=== PATIENT | male | born 1935 | race Caucasian/White ===

== ENCOUNTER → 2016-07-28 | Outpatient (CLI) | payer OTHER, MEDICARE, BC | END | disposition home or self-care (01) | LOC: MW.RT 20:44 | DX: R06.83 Snoring (principal); G47.39 Other sleep apnea | CPT/HCPCS: 95810 ==

== ENCOUNTER 2016-09-10 08:53 | Day surgery (SDC) | payer OTHER, MEDICARE, BC ==
[~2016-09-10 08:53] MED LIST: Lactated Ringers 1,000 ML IV SCH; Lidocaine 2% 5 ML SDV ONE; Midazolam 1 MG/ML 2 ML SDV ONE; Propofol 200 MG/20 ML SDV ONE; fentaNYL 100 MCG/2 ML SDV ONE
--- NOTE | 2016-09-10 10:09 | PCM.PREANE ---
Preanesthetic Assessment - Anesthesia/Transfusion/Family Hx Anesthesia History: Prior Anesthesia Without Reaction Other Type of Anesthesia Reaction Comment: Denies any known problem with anesthesia in the past Family History of Anesthesia Reaction: No Transfusion History: No Prior Transfusion(s) Intubation History: Unknown - Review of Systems General: No Symptoms Pulmonary: No Symptoms Cardiovascular: No Symptoms Gastrointestinal: No symptoms Neurological: No Symptoms Other: Reports: None - Physical Assessment O2 Sat by Pulse Oximetry: 94 Respiratory Rate: 18 Vital Signs: Last Vital Signs Temp 36.8 C 09/10/16 09:31 Pulse 70 09/10/16 09:31 Resp 18 09/10/16 09:31 BP 152/75 H 09/10/16 09:31 Pulse Ox 94 L 09/10/16 09:31 Height: 1.88 m Weight: 10.433 kg ASA Class: 3 Mental Status: Alert & Oriented x3 Airway Class: Mallampati = 2 Dentition: Reports: Partial (upper right) Thyro-Mental Finger Breadths: 2 Mouth Opening Finger Breadths: 2 ROM/Head Extension: Limited/Partial Lungs: Clear to auscultation, Normal respiratory effort Cardiovascular: Regular Rate, Regular Rhythm - Allergies Allergies/Adverse Reactions: Allergies Allergy/AdvReac Type Severity Reaction Status Date / Time No Known Allergies Allergy Verified 09/08/16 13:44 - Blood Blood Available: No - Anesthesia Plan Pre-Op Medication Ordered: None - Acknowledgements Anesthesia Type Planned: MAC Pt an Appropriate Candidate for the Planned Anesthesia: Yes Alternatives and Risks of Anesthesia Discussed w Pt/Guardian: Yes Pt/Guardian Understands and Agrees with Anesthesia Plan: Yes PreAnesthesia Questionnaire HEENT History: Reports: Allergic Rhinitis, Hard of Hearing Other HEENT History: has upper removable partial denture and bilateral hearing aides Cardiovascular History: Reports: CAD, High Cholesterol, Hypertension, PVD (h/o right carotid artery stenosis) Respiratory History: Reports: None Gastrointestinal History: Reports: Colon Polyp, Diverticulosis (sigmoid diverticulosis) Genitourinary History: Reports: BPH Musculoskeletal History: Reports: None Neurological History: Reports: None Psychiatric History: Reports: None Endocrine/Metabolic History: Reports: Obesity/BMI 30+ Hematologic History: Reports: None Immunologic History: Reports: None Oncologic (Cancer) History: Reports: None Dermatologic History: Reports: None - Past Surgical History Head Surgeries/Procedures: Reports: None HEENT Surgical History: Reports: None, Cataract Surgery Cardiovascular Surgical History: Reports: Carotid Endarterectomy (right carotid endarterectomy 5-6 years ago), Coronary Artery Bypass (CABG x3 in about ') Respiratory Surgical History: Reports: None GI Surgical History: Reports: Appendectomy, Colonoscopy, Hernia, Abdominal Male Surgical History: Reports: None Endocrine Surgical History: Reports: None Neurological Surgical History: Reports: None Musculoskeletal Surgical History: Reports: Knee Replacement (right knee) Oncologic Surgical History: Reports: None - SUBSTANCE USE Smoking Status *Q: Never Smoker Second Hand Smoke Exposure: No Days Per Week of Alcohol Use: 7 Number of Drinks Per Day: 1 Total Drinks Per Week: 7 Recreational Drug Use History: No - HOME MEDS Home Medications: Home Meds Aspirin [Halfprin] 1 tab PO DAILY 12/27/13 [History] Cetirizine HCl [Allergy Relief] 1 tab PO DAILY 12/27/13 [History] Finasteride [Proscar] 5 mg PO DAILY 12/27/13 [History] Flunisolide [Nasalide Nasal [place]] 2 spray IH BID 12/27/13 [History] Garlic [Garlic Oil] 500 mg PO DAILY 12/27/13 [History] Gluc HCl/Csa/Rowdy Hy/Hyalur Ac [Glucosamine Chondroitin] 1 tab PO DAILY [History] Lisinopril 40 mg PO BID 12/27/13 [History] Lutein 10 mg PO DAILY 12/27/13 [History] Metoprolol Tartrate 0.5 tab PO BID 12/27/13 [History] Simvastatin [Zocor] 80 mg PO BEDTIME 12/27/13 [History] Alfuzosin HCl [Alfuzosin HCl ER] 10 mg PO DAILY 09/08/16 [History] Fish Oil/[place]-3 Fatty Acids [Fish Oil 1,000 MG] 1,000 mg PO DAILY 09/08/16 [ History] Oxybutynin Chloride 5 mg PO TID 09/08/16 [History] Triamterene/Hydrochlorothiazid [Triamterene-HCTZ 75-50 MG] 1 tab PO DAILY [History] - CURRENT (IN HOUSE) MEDS Current Meds: Current Medications Lactated Ringer's (Ringers, Lactated) 1,000 mls @ 125 mls/hr IV ASDIRECTED MARIANNA Last Admin: 09/10/16 09:29 Dose: 125 mls/hr Discontinued Medications Fentanyl (Sublimaze) Confirm Administered Dose 100 mcg .ROUTE .STK-MED ONE Stop: 09/10/16 08:22 Lidocaine (Xylocaine-Mpf 2%) Confirm Administered Dose 5 ml .ROUTE .STK-MED ONE Stop: 09/10/16 08:21 Midazolam HCl (Versed 1 Mg/Ml) Confirm Administered Dose 2 mg .ROUTE .STK-MED ONE Stop: 09/10/16 08:21 Propofol (Diprivan 20 Ml) Confirm Administered Dose 400 mg .ROUTE .STK-MED ONE Stop: 09/10/16 08:21
--- NOTE | 2016-09-10 10:53 | PCM.OPNOTE ---
- General Post-Op/Procedure Note Date of Surgery/Procedure: 09/10/16 Operative Procedure(s): Colonoscopy with cecal biopsy Pre Op Diagnosis: Personal history of colon polyps Post-Op Diagnosis: Sigmoid diverticulosis. Nonspecific inflammatory changes in the cecum. Anesthesia Technique: MAC (ASA III) Primary Surgeon: Kirill Tobar Condition: Good Free Text/Narrative:: Dictation [id number]
[2016-09-10] MEDS ORDERED: Lactated Ringers 1,000 ML IV SCH (11:00)
--- NOTE | 2016-09-10 11:21 | PCM.POSTAN ---
POST ANESTHESIA ASSESSMENT - MENTAL STATUS Mental Status: alert, oriented - RESPIRATORY Respiratory Status: respiratory rate WNL, airway patent, O2 saturation stable - CARDIOVASCULAR CV Status: pulse rate WNL, blood pressure stable - GASTROINTESTINAL GI Status: no symptoms - POST OP HYDRATION Hydration Status: adequate & stable - OBSERVATIONS Free Text/Narrative:: no anesthesia problems
[2016-09-10 13:47] VITALS: BP 151/69
--- NOTE | 2016-09-10 18:03 | OR ---
SURGEON: Kirill Tobar M.D. DATE OF PROCEDURE: 09/10/2016 OPERATION PERFORMED: Colonoscopy with cecal biopsy. ANESTHESIA: MAC. ASA CLASSIFICATION: III. PREOPERATIVE DIAGNOSIS: Personal history of colon polyps. POSTOPERATIVE DIAGNOSES: 1. Sigmoid diverticulosis. 2. Nonspecific cecal inflammatory changes. DESCRIPTION OF PROCEDURE: The patient was taken to the endoscopy room and positioned on the endoscopy table in the left lateral decubitus position. A time-out was called for appropriate identification of the patient and procedure. Monitored anesthesia care was provided. The colonoscope was inserted into the rectum and advanced with minimal difficulty to the cecum, where the colonoscope was retroflexed to visualize the ascending colon from below. The colonoscope was then straightened. Cecum was identified by internal landmarks and external pressure. The cecum does appear to have some mild inflammatory changes. Biopsies of the cecum were obtained. The ascending colon, hepatic flexure, transverse colon, splenic flexure, and descending colon showed no tumors, polyps, diverticula, or angiodysplastic changes. Sigmoid colon demonstrates moderate diverticular change. Again, no stricture, spasm, or bleeding was noted. No polyps were encountered. The colonoscope was then withdrawn to the distal rectum and retroflexed to visualize the anal orifice from above. No tumors, polyps, or acute hemorrhoidal changes were noted. The colonoscope was then straightened, the rectum aspirated, and the colonoscope removed. The patient tolerated the procedure well and was taken to recovery room in stable condition. KOKI FRY /[id number]
== END 2016-09-10 11:55 | disposition home or self-care (01) ==
LOC: MW.SDS 08:53
PROVIDERS: ATTEND Surgery
DX: Z12.11 Encounter for screening for malignant neoplasm of colon (principal); K52.9 Noninfective gastroenteritis and colitis, unspecified; K57.30 Diverticulosis of large intestine without perforation or abscess without bleeding; I25.10 Atherosclerotic heart disease of native coronary artery without angina pectoris; J30.9 Allergic rhinitis, unspecified; Z95.1 Presence of aortocoronary bypass graft; Z86.010 Personal history of colon polyps; Z90.49 Acquired absence of other specified parts of digestive tract; Z98.890 Other specified postprocedural states; Z79.82 Long term (current) use of aspirin; Z79.899 Other long term (current) drug therapy
CPT/HCPCS: 45380; 88305; J2250; J3010; J7120; 00810; J2704

== ENCOUNTER 2017-09-15 12:29 | Inpatient (IN) | payer OTHER, MEDICARE, BC ==
--- NOTE | 2017-09-15 12:39 | EDM.PDOC ---
ED HPI GENERAL MEDICAL PROBLEM - General Chief Complaint: Cardiovascular Problem Stated Complaint: AMB Time Seen by Provider: 09/15/17 12:39 Source of Information: Reports: Patient History Limitations: Reports: No Limitations - History of Present Illness INITIAL COMMENTS - FREE TEXT/NARRATIVE: HISTORY AND PHYSICAL: History of present illness: Patient is an 82-year-old male who is brought to the emergency room by EMS from the [place] [facility]. He was seen at the clinic today for a "check-up". At that point, me mentioned concerns of weight gain (25 pounds over the last 3 weeks), bilateral lower extremity swelling, decreased urinary output, and mild dyspnea. The [place] provider felt that he needed to be evaluated in the emergency room. He denies any fever, chills, chest pain, change in vision, headache, or diaphoresis. Denies any abdominal pain, nausea, vomiting, diarrhea or constipation. Denies dysuria or changes in bowel pattern; but does feel a fullness to the low abdomen. Patient has a past medical history of PVD, hypertension, coronary artery disease , BPH, and diverticulitis. Review of systems: As per history of present illness and below otherwise all systems reviewed and negative. Past medical history: As per history of present illness and as reviewed below otherwise noncontributory. Surgical history: As per history of present illness and as reviewed below otherwise noncontributory. Social history: No reported history of drug or alcohol abuse. Family history: As per history of present illness and as reviewed below otherwise noncontributory. Physical exam: General: Developed and well-nourished 82-year-old male. Alert and oriented. Nontoxic appearing and in no acute distress. HEENT: Atraumatic, normocephalic, pupils equal and reactive bilaterally, negative for conjunctival pallor or scleral icterus, mucous membranes moist, throat clear, neck supple, nontender, trachea midline. No drooling or trismus noted. No meningeal signs Lungs: Clear to auscultation, breath sounds equal bilaterally, chest nontender. Heart: S1S2, regular rate and rhythm without overt murmur Abdomen: Soft, nondistended, obese, nontender. Negative for masses or hepatosplenomegaly. Negative for costovertebral tenderness. Pelvis: Stable nontender. Genitourinary: Deferred. Rectal: Deferred. Skin: Intact, warm, dry. No lesions or rashes noted. Extremities: Atraumatic, negative for cords or calf pain. +2 pitting edema to bilateral lower extremities. Neurovascular unremarkable. Neuro: Awake, alert, oriented. Cranial nerves II through XII unremarkable. Cerebellum unremarkable. Motor and sensory unremarkable throughout. Exam nonfocal. Notes: Patient is alert and orientated. Will perform lab work and chest x-ray. Oxygen as needed at this time. Vital signs are stable otherwise. BNP 670, oxygen unable to above 86% on room air. Patient states he would like to be admitted to "get these 40 pounds of water weight off me". Hospitalist was consult did on his case and is agreeable to admitting him to [facility]. Diagnostics: CBC, CMP, UA, chest x-ray, BNP Therapeutics: Lasix IV Impression: CHF Plan: Admission to Med/Surg Definitive disposition and diagnosis as appropriate pending reevaluation and review of above. Duration: Week(s): Location: Reports: Abdomen - Related Data Allergies Allergy/AdvReac Type Severity Reaction Status Date / Time No Known Allergies Allergy Verified 09/15/17 12:33 Home Meds: Home Meds Cetirizine HCl [Allergy Relief] 10 mg PO DAILY 12/27/13 [History] Finasteride [Proscar] 5 mg PO DAILY 12/27/13 [History] Garlic [Garlic Oil] 500 mg PO DAILY 12/27/13 [History] Gluc HCl/Csa/[place] Hy/Hyalur Ac [Glucosamine Chondroitin] 1 tab PO DAILY [History] Lisinopril 40 mg PO BID 12/27/13 [History] Lutein 10 mg PO DAILY 12/27/13 [History] Metoprolol Tartrate 50 mg PO BID 12/27/13 [History] Simvastatin [Zocor] 80 mg PO BEDTIME 12/27/13 [History] Alfuzosin HCl [Alfuzosin HCl ER] 10 mg PO DAILY 09/08/16 [History] Oxybutynin Chloride 5 mg PO TID 09/08/16 [History] Triamterene/Hydrochlorothiazid [Triamterene-HCTZ 75-50 MG] 1 tab PO DAILY [History] Ammonium Lactate [Amlactin 12% Lotion] 3 gm TP BID PRN 09/15/17 [History] Dexamethasone/Tobramycin [Tobradex Eye Ointment] 1 applic OP BID 09/15/17 [ History] Past Medical History HEENT History: Reports: Allergic Rhinitis, Hard of Hearing Other HEENT History: has upper removable partial denture and bilateral hearing aides Cardiovascular History: Reports: CAD, High Cholesterol, Hypertension, PVD Respiratory History: Reports: None Gastrointestinal History: Reports: Colon Polyp, Diverticulosis Genitourinary History: Reports: BPH Musculoskeletal History: Reports: None Neurological History: Reports: None Psychiatric History: Reports: None Endocrine/Metabolic History: Reports: Obesity/BMI 30+ Hematologic History: Reports: None Immunologic History: Reports: None Oncologic (Cancer) History: Reports: None Dermatologic History: Reports: None - Past Surgical History Head Surgeries/Procedures: Reports: None HEENT Surgical History: Reports: None, Cataract Surgery Cardiovascular Surgical History: Reports: Carotid Endarterectomy, Coronary Artery Bypass Respiratory Surgical History: Reports: None GI Surgical History: Reports: Appendectomy, Colonoscopy, Hernia, Abdominal Male Surgical History: Reports: None Endocrine Surgical History: Reports: None Neurological Surgical History: Reports: None Musculoskeletal Surgical History: Reports: Knee Replacement Oncologic Surgical History: Reports: None ED ROS GENERAL - Review of Systems Review Of Systems: ROS reveals no pertinent complaints other than HPI. ED EXAM, GENERAL - Physical Exam Exam: See Below (See dictation) Course - Vital Signs Last Recorded V/S: Last Vital Signs Temp 97.5 F 09/15/17 15:41 Pulse 117 H 09/15/17 20:17 Resp 20 09/15/17 15:41 BP 139/90 09/15/17 20:17 Pulse Ox 94 L 09/15/17 15:41 - Orders/Labs/Meds Orders: Active Orders 24 hr Category Date Time Status Cardiac Monitoring [RC] . DIRECTED Care 09/15/17 12:35 Active EKG Documentation Completion [RC] STAT Care 09/15/17 12:36 Active UA W/MICROSCOPIC [URIN] Stat Lab 09/15/17 14:20 Ordered Medication Orders Acetaminophen (Tylenol) 650 mg PO Q4H PRN PRN Reason: Pain (mild 1-3) Aspirin (Aspirin) 81 mg PO DAILY MARIANNA Cetirizine HCl (Zyrtec) 10 mg PO DAILY [facility] Enoxaparin Sodium (Lovenox) 150 mg SUBCUT Q12H MARIANNA Finasteride (Proscar) 5 mg PO DAILY [facility] Furosemide (Lasix) 40 mg IVPUSH BIDDIURETIC [facility] Heparin Sodium (Porcine) (Heparin Sodium) 5,000 units SUBCUT Q12H [facility] Last Admin: 09/15/17 18:47 Dose: 5,000 units Lisinopril (Prinivil) 40 mg PO BID [facility] Last Admin: 09/15/17 20:16 Dose: 40 mg Metoprolol Tartrate (Lopressor) 50 mg PO BID [facility] Last Admin: 09/15/17 20:17 Dose: 50 mg Non-Formulary Medication (Alfuzosin Hcl) 10 mg PO DAILY [facility] Non-Formulary Medication (Ammonium Lactate) 3 gm TP BID PRN PRN Reason: dry skin Non-Formulary Medication (Garlic [Garlic Oil]) 500 mg PO DAILY [facility] Non-Formulary Medication (Gluc Hcl/Csa/[place] Hy/Hyalur Ac [Glucosamine Chondroitin]) 1 tab PO DAILY [facility] Ondansetron HCl (Zofran Odt) 4 mg PO Q4H PRN PRN Reason: nausea, able to take PO Oxybutynin Chloride (Oxybutynin) 5 mg PO TID [facility] Lutein [Lutein] 10 (Mg) 1 each PO DAILY [facility] Simvastatin (Zocor) 80 mg PO BEDTIME [facility] Last Admin: 09/15/17 20:18 Dose: 80 mg Sodium Chloride (Saline Flush) 2.5 ml FLUSH ASDIRECTED PRN PRN Reason: Keep Vein Open Triamterene/HCTZ (Maxzide 50-75 Mg) 1 each PO DAILY [facility] Warfarin Sodium (Coumadin) 5 mg PO .Pharmacy To Dose [facility] Labs: Laboratory Tests 09/15/17 09/15/17 09/15/17 Range/Units 12:30 12:30 12:30 WBC 4.48 (4.0-11.0) K/uL RBC 4.22 L (4.50-5.90) M/uL Hgb 12.2 L (13.0-17.0) g/dL Hct 38.8 (38.0-50.0) % MCV 91.9 (80.0-98.0) fL MCH 28.9 (27.0-32.0) pg MCHC 31.4 (31.0-37.0) g/dL RDW Std Deviation 49.5 (28.0-62.0) fl RDW Coeff of [place] 15 (11.0-15.0) % Plt Count 162 (150-400) K/uL MPV 9.60 (7.40-12.00) fL Neut % (Auto) 73.2 (48.0-80.0) % Lymph % (Auto) 18.3 (16.0-40.0) % [place] % (Auto) 6.5 (0.0-15.0) % Eos % (Auto) 1.6 (0.0-7.0) % Baso % (Auto) 0.4 (0.0-1.5) % Neut # (Auto) 3.3 (1.4-5.7) K/uL Lymph # (Auto) 0.8 (0.6-2.4) K/uL [place] # (Auto) 0.3 (0.0-0.8) K/uL Eos # (Auto) 0.1 (0.0-0.7) K/uL Baso # (Auto) 0.0 (0.0-0.1) K/uL Nucleated RBC % 0.0 /100WBC Nucleated RBCs # 0 K/uL INR 1.17 Sodium 146 (136-148) mmol/L Potassium 4.1 (3.5-5.1) mmol/L Chloride 109 H (98-107) mmol/L Carbon Dioxide 31.8 (21.0-32.0) mmol/L BUN 26 H (7.0-18.0) mg/dL Creatinine 1.3 (0.8-1.3) mg/dL Est Cr Clr Drug Dosing 42.37 mL/min Estimated GFR (MDRD) 53.1 ml/min Glucose 121 H (74-106) mg/dL Calcium 9.0 (8.5-10.1) mg/dL Total Bilirubin 0.6 (0.2-1.0) mg/dL AST 21 (15-37) IU/L ALT 35 (14-63) IU/L Alkaline Phosphatase 49 (46-116) U/L Troponin I < 0.050 (0.000-0.056) ng/mL B-Natriuretic Peptide (<100) PG/ML Total Protein 6.9 (6.4-8.2) g/dL Albumin 3.5 (3.4-5.0) g/dL Globulin 3.4 (2.0-3.5) g/dL Albumin/Globulin Ratio 1.0 L (1.3-2.8) Amylase 32 (25-115) U/L Lipase 109 (73-393) U/L Urine Color Urine Appearance Urine pH (5.0-8.0) Ur Specific [place] (1.001-1.035) Urine Protein (NEGATIVE) mg/dL Urine Glucose (UA) (NEGATIVE) mg/dL Urine Ketones (NEGATIVE) mg/dL Urine Occult Blood (NEGATIVE) Urine Nitrite (NEGATIVE) Urine Bilirubin (NEGATIVE) Urine Urobilinogen (<2.0) EU/dL Ur Leukocyte Esterase (NEGATIVE) Urine RBC (0-2/HPF) Urine WBC (0-5/HPF) Ur Epithelial Cells (NONE-FEW) Amorphous Sediment (NEGATIVE) Urine Bacteria (NEGATIVE) 09/15/17 09/15/17 Range/Units 12:30 14:20 WBC (4.0-11.0) K/uL RBC (4.50-5.90) M/uL Hgb (13.0-17.0) g/dL Hct (38.0-50.0) % MCV (80.0-98.0) fL MCH (27.0-32.0) pg MCHC (31.0-37.0) g/dL RDW Std Deviation (28.0-62.0) fl RDW Coeff of [place] (11.0-15.0) % Plt Count (150-400) K/uL MPV (7.40-12.00) fL Neut % (Auto) (48.0-80.0) % Lymph % (Auto) (16.0-40.0) % [place] % (Auto) (0.0-15.0) % Eos % (Auto) (0.0-7.0) % Baso % (Auto) (0.0-1.5) % Neut # (Auto) (1.4-5.7) K/uL Lymph # (Auto) (0.6-2.4) K/uL [place] # (Auto) (0.0-0.8) K/uL Eos # (Auto) (0.0-0.7) K/uL Baso # (Auto) (0.0-0.1) K/uL Nucleated RBC % /100WBC Nucleated RBCs # K/uL INR Sodium (136-148) mmol/L Potassium (3.5-5.1) mmol/L Chloride (98-107) mmol/L Carbon Dioxide (21.0-32.0) mmol/L BUN (7.0-18.0) mg/dL Creatinine (0.8-1.3) mg/dL Est Cr Clr Drug Dosing mL/min Estimated GFR (MDRD) ml/min Glucose (74-106) mg/dL Calcium (8.5-10.1) mg/dL Total Bilirubin (0.2-1.0) mg/dL AST (15-37) IU/L ALT (14-63) IU/L Alkaline Phosphatase (46-116) U/L Troponin I (0.000-0.056) ng/mL B-Natriuretic Peptide 670 H (<100) PG/ML Total Protein (6.4-8.2) g/dL Albumin (3.4-5.0) g/dL Globulin (2.0-3.5) g/dL Albumin/Globulin Ratio (1.3-2.8) Amylase (25-115) U/L Lipase (73-393) U/L Urine Color YELLOW Urine Appearance CLEAR Urine pH 5.5 (5.0-8.0) Ur Specific [place] 1.025 (1.001-1.035) Urine Protein NEGATIVE (NEGATIVE) mg/dL Urine Glucose (UA) NEGATIVE (NEGATIVE) mg/dL Urine Ketones NEGATIVE (NEGATIVE) mg/dL Urine Occult Blood TRACE-INTACT (NEGATIVE) Urine Nitrite NEGATIVE (NEGATIVE) Urine Bilirubin NEGATIVE (NEGATIVE) Urine Urobilinogen 0.2 (<2.0) EU/dL Ur Leukocyte Esterase NEGATIVE (NEGATIVE) Urine RBC 0-1 (0-2/HPF) Urine WBC 0-1 (0-5/HPF) Ur Epithelial Cells RARE (NONE-FEW) Amorphous Sediment FEW (NEGATIVE) Urine Bacteria RARE (NEGATIVE) Meds: Medications Generic Name Dose Route Start Last Admin Trade Name Freq PRN Reason Stop Dose Admin Acetaminophen 650 mg 09/15/17 15:31 Tylenol PO Q4H PRN Pain (mild 1-3) Aspirin 81 mg 09/16/17 09:00 Aspirin PO DAILY MARIANNA Cetirizine HCl 10 mg 09/16/17 09:00 Zyrtec PO DAILY [facility] Enoxaparin Sodium 150 mg 09/15/17 20:00 Lovenox SUBCUT Q12H [facility] Finasteride 5 mg 09/16/17 09:00 Proscar PO DAILY [facility] Furosemide 40 mg 09/16/17 08:00 Lasix IVPUSH BIDDIURETIC [facility] Heparin Sodium (Porcine) 5,000 units 09/15/17 15:45 09/15/17 18:47 Heparin Sodium SUBCUT 5,000 units Q12H [facility] Administration Lisinopril 40 mg 09/15/17 21:00 09/15/17 20:16 Prinivil PO 40 mg BID [facility] Administration Metoprolol Tartrate 50 mg 09/15/17 21:00 09/15/17 20:17 Lopressor PO 50 mg BID [facility] Administration Non-Formulary Medication 10 mg 09/16/17 09:00 Alfuzosin Hcl PO DAILY [facility] Non-Formulary Medication 3 gm 09/15/17 19:56 Ammonium Lactate TP BID PRN dry skin Non-Formulary Medication 500 mg 09/16/17 09:00 Garlic [Garlic Oil] PO DAILY [facility] Non-Formulary Medication 1 tab 09/16/17 09:00 Gluc Hcl/Csa/[place] Hy/Hyalur Ac [Glucosamine Chondroitin] PO DAILY [facility] Ondansetron HCl 4 mg 09/15/17 15:31 Zofran Odt PO Q4H PRN nausea, able to take PO Oxybutynin Chloride 5 mg 09/15/17 22:00 Oxybutynin PO TID [facility] Lutein [Lutein] 10 1 each 09/16/17 09:00 Mg PO DAILY [facility] Simvastatin 80 mg 09/15/17 21:00 09/15/17 20:18 Zocor PO 80 mg BEDTIME [facility] Administration Sodium Chloride 2.5 ml 09/15/17 15:31 Saline Flush FLUSH ASDIRECTED PRN Keep Vein Open Triamterene/HCTZ 1 each 09/16/17 09:00 Maxzide 50-75 Mg PO DAILY [facility] Warfarin Sodium 5 mg 09/15/17 20:00 Coumadin PO .Pharmacy To Dose MARIANNA Discontinued Medications Generic Name Dose Route Start Last Admin Trade Name Freq PRN Reason Stop Dose Admin Diltiazem HCl 20 mg 09/15/17 19:55 09/15/17 20:18 Diltiazem IVPUSH 09/15/17 19:56 20 mg ONETIME ONE Administration Furosemide 20 mg 09/15/17 13:38 09/15/17 14:35 Lasix IVPUSH 09/15/17 13:39 Not Given ONETIME ONE Furosemide 20 mg 09/15/17 14:30 09/15/17 14:35 Lasix IVPUSH 09/15/17 14:31 20 mg ONETIME ONE Administration Furosemide 40 mg 09/15/17 19:00 09/15/17 18:47 Lasix IVPUSH 09/15/17 19:01 40 mg NOW ONE Administration Tobramycin/Dexamethasone 3.5 gm 09/15/17 21:00 Tobradex Ophth Oint EYEBOTH BID MARIANNA Warfarin Sodium 5 mg 09/15/17 20:15 09/15/17 20:39 Coumadin PO 09/15/17 20:16 5 mg ONETIME ONE Administration Departure - Departure Time of Disposition: 15:00 Disposition: Admitted As Inpatient 68 Clinical Impression: CHF (congestive heart failure) Qualifiers: Heart failure type: unspecified Heart failure chronicity: unspecified Qualified Code(s): I50.9 - Heart failure, unspecified
[2017-09-15 13:23] LABS: CHLORIDE,CL 109 mmol/L (98-107); SODIUM,NA 146 mmol/L (136-148)
[2017-09-15] MEDS ORDERED: Furosemide 20 MG/2 ML VIAL IVPUSH ONE (13:38)
[2017-09-15] MEDS ORDERED: Furosemide 40 MG/4 ML VIAL IVPUSH ONE ×2 (14:30→19:00)
--- NOTE | 2017-09-15 14:32 | CR ---
EXAMINATION: PA chest HISTORY: Weight gain, cardiac history. FINDINGS: The trachea is midline. Mild cardiomegaly with dextro positioning of the heart. Median sternotomy wir es are noted. No pulmonary infiltrates, effusions or pneumothorax. Interstitial prominence. Osseous structures appear unremarkable. IMPRESSION: 1. Mild cardiomegaly without a definite acute cardiopulmonary pulmonary finding. 2. Bibasilar atelectasis/scarring with mild interstitial prominence bilaterally.
[2017-09-15] MEDS ORDERED: Acetaminophen 325 MG Tab PO PRN (15:31)
[2017-09-15] MEDS ORDERED: Sodium Chloride 0.9% 2.5 ML Syringe FLUSH PRN (15:31)
[2017-09-15] MEDS ORDERED: Ondansetron 4 MG Tab.DIS PO PRN (15:31)
[2017-09-15] MEDS ORDERED: Heparin Sodium 5,000 Units/ML Vial SUBCUT SCH (15:45)
--- NOTE | 2017-09-15 15:47 | PCM.HP ---
H&P History of Present Illness - General Date of Service: 09/15/17 Admit Problem/Dx: Admission Diagnosis/Problem Admission Diagnosis/Problem Congestive heart failure Source of Information: Patient, Old Records ([place]) History Limitations: Reports: No Limitations - History of Present Illness Initial Comments - Free Text/Narative: This 82 year old male with pmh of HTN, CAD, PVD, R CEA, WAQAR on CPAP, BPH, and obesity presented to the ED after being seen on the [facility] due to weight gain and dyspnea. He was then sent to be evaluated in the ED. He reports he has gained 45 lbs over the last. He continues to exercise, but is becoming more and more short of breath at the [facility] and he has noticed his legs are getting bigger and bigger with fluid. He reports being complaint with medications. He reports he changed his diet 1 month ago to the Atkins diet and is eating gray every morning and ham with his salad at lunchtime along with adding a "couple shakes of salt" to each meal. He reports he has never been told he has heart failure, has not seen a supervising architect since CABG in 2006 in [place]. He follows with the [place] and was seen in [place] in 2011 for R CEA. He denies chest pain or palpitations. He reports increasing swelling to legs and some abdominal fullness , not pain though. He reports some trouble sleeping, denies orthopnea, but also reports he is waking up more in the night and feels CPAP isn't working well. Says he is able to lie flat. Does not sleep in recliner. He denies fevers, chills, or recent URI. He reports two small wounds to his R leg (lateral and medial), but they are improving and are providing him with no pain. He reports they are slowly improving since he injured them in the winter shoveling. He denies tobacco use, rare alcohol use and no recreational drug use. In the ED no leukocytosis noted, Hgb 12.2, Na 146, K+ 4.1, Cl 109, BUN 26, Cr 1.3 glucose 121, BNP 670. BP 148/90s, Hypoxia noted, 86% on RA upon arrival. He was given Lasix 40 mg IV and voided x1 without measure in the ED. CXR revealed Mild cardiomegaly, without a definite acute cardiopulmonary finding, bibasilar atelectasis/scarring with milkd interstitial prominence bilaterally. He was admitted for suspected CHF exacerbation with hypoxia and dyspnea. At [place] on September 13 he had lipid profile and A1c monitored. A1c 6.1 and Lipid panel revealed Triglycerides 69, Cholesterol 74, HCL 42, LDL 18. PCP [facility] - Related Data Allergies/Adverse Reactions: Allergies Allergy/AdvReac Type Severity Reaction Status Date / Time No Known Allergies Allergy Verified 09/15/17 12:33 Home Medications: Home Meds Cetirizine HCl [Allergy Relief] 10 mg PO DAILY 12/27/13 [History] Finasteride [Proscar] 5 mg PO DAILY 12/27/13 [History] Garlic [Garlic Oil] 500 mg PO DAILY 12/27/13 [History] Gluc HCl/Csa/Rowdy Hy/Hyalur Ac [Glucosamine Chondroitin] 1 tab PO DAILY [History] Lisinopril 40 mg PO BID 12/27/13 [History] Lutein 10 mg PO DAILY 12/27/13 [History] Metoprolol Tartrate 50 mg PO BID 12/27/13 [History] Simvastatin [Zocor] 80 mg PO BEDTIME 12/27/13 [History] Alfuzosin HCl [Alfuzosin HCl ER] 10 mg PO DAILY 09/08/16 [History] Oxybutynin Chloride 5 mg PO TID 09/08/16 [History] Triamterene/Hydrochlorothiazid [Triamterene-HCTZ 75-50 MG] 1 tab PO DAILY [History] Ammonium Lactate [Amlactin 12% Lotion] 3 gm TP BID PRN 09/15/17 [History] Dexamethasone/Tobramycin [Tobradex Eye Ointment] 1 applic OP BID 09/15/17 [ History] Past Medical History HEENT History: Reports: Allergic Rhinitis, Hard of Hearing Other HEENT History: has upper removable partial denture and bilateral hearing aides Cardiovascular History: Reports: Bypass (2006 x 3), CAD, High Cholesterol, Hypertension, PVD, SOB on Exertion. Denies: Afib, Arrhythmia, Blood Clots/VTE/ DVT Respiratory History: Reports: Sleep Apnea (CPAP at home). Denies: COPD, PE Gastrointestinal History: Reports: Colon Polyp, Diverticulosis Genitourinary History: Reports: BPH Musculoskeletal History: Reports: None Neurological History: Reports: None. Denies: CVA, TIA Psychiatric History: Reports: None Endocrine/Metabolic History: Reports: Obesity/BMI 30+. Denies: Diabetes, Type II Hematologic History: Reports: None Immunologic History: Reports: None Oncologic (Cancer) History: Reports: None Dermatologic History: Reports: None - Infectious Disease History Infectious Disease History: Reports: None - Past Surgical History Head Surgeries/Procedures: Reports: None HEENT Surgical History: Reports: None, Cataract Surgery Cardiovascular Surgical History: Reports: Carotid Endarterectomy (2011), Coronary Artery Bypass (2006) Respiratory Surgical History: Reports: None GI Surgical History: Reports: Appendectomy, Colonoscopy, Hernia, Abdominal Male Surgical History: Reports: None Endocrine Surgical History: Reports: None Neurological Surgical History: Reports: None Musculoskeletal Surgical History: Reports: Knee Replacement (Right) Oncologic Surgical History: Reports: None Social & Family History - Family History Family Medical History: Noncontributory - Tobacco Use Smoking Status *Q: Never Smoker - Caffeine Use Caffeine Use: Reports: Coffee - Alcohol Use Alcohol Use History: No - Recreational Drug Use Recreational Drug Use: No - Living Situation & Occupation Living situation: Reports: Single Occupation: Retired H&P Review of Systems - Review of Systems: Review Of Systems: See Below General: Reports: No Symptoms. Denies: Fever, Chills, Malaise, Weakness HEENT: Reports: No Symptoms. Denies: Sinus Congestion, Sore Throat, Visual Changes Pulmonary: Reports: Shortness of Breath. Denies: Cough, Sputum Cardiovascular: Reports: Dyspnea on Exertion, Orthopnea, Edema. Denies: Chest Pain, Palpitations Gastrointestinal: Reports: Flatus, Other (fullness in abdomen). Denies: Abdominal Pain, Black Stool, Bloody Stool, Nausea, Vomiting Genitourinary: Reports: No Symptoms Musculoskeletal: Reports: No Symptoms Skin: Reports: Wound (R leg x 2, improving injured leg while shoveling this fall ) Psychiatric: Reports: No Symptoms Neurological: Reports: No Symptoms Hematologic/Lymphatic: Reports: No Symptoms Immunologic: Reports: No Symptoms Exam - Exam Exam: See Below - Vital Signs Vital Signs: Last Vital Signs Temp 97.6 F 09/15/17 12:30 Pulse 79 09/15/17 14:45 Resp 18 09/15/17 14:45 BP 164/93 H 09/15/17 14:45 Pulse Ox 99 09/15/17 14:45 Weight: 148.325 kg - Exam Quality Assessment: DVT Prophylaxis General: Alert, Oriented, Cooperative HEENT: Conjunctiva Clear, Mucosa Moist & [place], Posterior Pharynx Clear Neck: Supple, Trachea Midline, Full Range of Motion, JVD Lungs: Crackles (bibasilar) Cardiovascular: Regular Rate, Regular Rhythm, Normal S1, Normal S2 GI/Abdominal Exam: Normal Bowel Sounds, Soft, Non-Tender, No Organomegaly, No Distention, No Abnormal Bruit, No Mass, Pelvis Stable Back Exam: Normal Inspection, Full Range of Motion Extremities: Normal Range of Motion, Non-Tender, Pedal Edema (+3-4 pitting edema to L Leg with chronic skin changes from PVD. +2 pitting to R leg. Both extending up to hips. No abdominal edema noted. ) Skin: Wound (L lateral and medial leg. x2 wounds, no erythema or drainage. both approximate 1in x 0.5 in in size. No fluctuance or pain with palpation. Injured shoveling this winter. they are improving. Covering and using bacitracin on them daily.), Other (chronic PVD skin changes to bilateral lower legs. ). No: Ecchymosis Neurological: Cranial Nerves Intact Neuro Extensive - Mental Status: Alert, Oriented x3, Normal Mood/Affect, Normal Cognition Neuro Extensive - Motor, Sensory, Reflexes: CN II-XII Intact, Normal Gait, Normal Reflexes Psychiatric: Alert, Normal Affect, Normal Mood - Patient Data Lab Results Last 24 hrs: Laboratory Results - last 24 hr 09/15/17 09/15/17 09/15/17 Range/Units 12:30 12:30 12:30 WBC 4.48 (4.0-11.0) K/uL RBC 4.22 L (4.50-5.90) M/uL Hgb 12.2 L (13.0-17.0) g/dL Hct 38.8 (38.0-50.0) % MCV 91.9 (80.0-98.0) fL MCH 28.9 (27.0-32.0) pg MCHC 31.4 (31.0-37.0) g/dL RDW Std Deviation 49.5 (28.0-62.0) fl RDW Coeff of [place] 15 (11.0-15.0) % Plt Count 162 (150-400) K/uL MPV 9.60 (7.40-12.00) fL Neut % (Auto) 73.2 (48.0-80.0) % Lymph % (Auto) 18.3 (16.0-40.0) % [place] % (Auto) 6.5 (0.0-15.0) % Eos % (Auto) 1.6 (0.0-7.0) % Baso % (Auto) 0.4 (0.0-1.5) % Neut # (Auto) 3.3 (1.4-5.7) K/uL Lymph # (Auto) 0.8 (0.6-2.4) K/uL [place] # (Auto) 0.3 (0.0-0.8) K/uL Eos # (Auto) 0.1 (0.0-0.7) K/uL Baso # (Auto) 0.0 (0.0-0.1) K/uL Nucleated RBC % 0.0 /100WBC Nucleated RBCs # 0 K/uL INR 1.17 Sodium 146 (136-148) mmol/L Potassium 4.1 (3.5-5.1) mmol/L Chloride 109 H (98-107) mmol/L Carbon Dioxide 31.8 (21.0-32.0) mmol/L BUN 26 H (7.0-18.0) mg/dL Creatinine 1.3 (0.8-1.3) mg/dL Est Cr Clr Drug Dosing 42.37 mL/min Estimated GFR (MDRD) 53.1 ml/min Glucose 121 H (74-106) mg/dL Calcium 9.0 (8.5-10.1) mg/dL Total Bilirubin 0.6 (0.2-1.0) mg/dL AST 21 (15-37) IU/L ALT 35 (14-63) IU/L Alkaline Phosphatase 49 (46-116) U/L Troponin I < 0.050 (0.000-0.056) ng/mL B-Natriuretic Peptide (<100) PG/ML Total Protein 6.9 (6.4-8.2) g/dL Albumin 3.5 (3.4-5.0) g/dL Globulin 3.4 (2.0-3.5) g/dL Albumin/Globulin Ratio 1.0 L (1.3-2.8) Amylase 32 (25-115) U/L Lipase 109 (73-393) U/L Urine Color Urine Appearance Urine pH (5.0-8.0) Ur Specific [place] (1.001-1.035) Urine Protein (NEGATIVE) mg/dL Urine Glucose (UA) (NEGATIVE) mg/dL Urine Ketones (NEGATIVE) mg/dL Urine Occult Blood (NEGATIVE) Urine Nitrite (NEGATIVE) Urine Bilirubin (NEGATIVE) Urine Urobilinogen (<2.0) EU/dL Ur Leukocyte Esterase (NEGATIVE) Urine RBC (0-2/HPF) Urine WBC (0-5/HPF) Ur Epithelial Cells (NONE-FEW) Amorphous Sediment (NEGATIVE) Urine Bacteria (NEGATIVE) 09/15/17 09/15/17 Range/Units 12:30 14:20 WBC (4.0-11.0) K/uL RBC (4.50-5.90) M/uL Hgb (13.0-17.0) g/dL Hct (38.0-50.0) % MCV (80.0-98.0) fL MCH (27.0-32.0) pg MCHC (31.0-37.0) g/dL RDW Std Deviation (28.0-62.0) fl RDW Coeff of [place] (11.0-15.0) % Plt Count (150-400) K/uL MPV (7.40-12.00) fL Neut % (Auto) (48.0-80.0) % Lymph % (Auto) (16.0-40.0) % [place] % (Auto) (0.0-15.0) % Eos % (Auto) (0.0-7.0) % Baso % (Auto) (0.0-1.5) % Neut # (Auto) (1.4-5.7) K/uL Lymph # (Auto) (0.6-2.4) K/uL [place] # (Auto) (0.0-0.8) K/uL Eos # (Auto) (0.0-0.7) K/uL Baso # (Auto) (0.0-0.1) K/uL Nucleated RBC % /100WBC Nucleated RBCs # K/uL INR Sodium (136-148) mmol/L Potassium (3.5-5.1) mmol/L Chloride (98-107) mmol/L Carbon Dioxide (21.0-32.0) mmol/L BUN (7.0-18.0) mg/dL Creatinine (0.8-1.3) mg/dL Est Cr Clr Drug Dosing mL/min Estimated GFR (MDRD) ml/min Glucose (74-106) mg/dL Calcium (8.5-10.1) mg/dL Total Bilirubin (0.2-1.0) mg/dL AST (15-37) IU/L ALT (14-63) IU/L Alkaline Phosphatase (46-116) U/L Troponin I (0.000-0.056) ng/mL B-Natriuretic Peptide 670 H (<100) PG/ML Total Protein (6.4-8.2) g/dL Albumin (3.4-5.0) g/dL Globulin (2.0-3.5) g/dL Albumin/Globulin Ratio (1.3-2.8) Amylase (25-115) U/L Lipase (73-393) U/L Urine Color YELLOW Urine Appearance CLEAR Urine pH 5.5 (5.0-8.0) Ur Specific [place] 1.025 (1.001-1.035) Urine Protein NEGATIVE (NEGATIVE) mg/dL Urine Glucose (UA) NEGATIVE (NEGATIVE) mg/dL Urine Ketones NEGATIVE (NEGATIVE) mg/dL Urine Occult Blood TRACE-INTACT (NEGATIVE) Urine Nitrite NEGATIVE (NEGATIVE) Urine Bilirubin NEGATIVE (NEGATIVE) Urine Urobilinogen 0.2 (<2.0) EU/dL Ur Leukocyte Esterase NEGATIVE (NEGATIVE) Urine RBC 0-1 (0-2/HPF) Urine WBC 0-1 (0-5/HPF) Ur Epithelial Cells RARE (NONE-FEW) Amorphous Sediment FEW (NEGATIVE) Urine Bacteria RARE (NEGATIVE) Result Diagrams: 09/15/17 12:30 09/15/17 12:30 EKG INTERPRETATION EKG Date: 09/15/17 Rhythm: NSR Rate (Beats/Min): 79 P-Wave: Present QRS: Normal ST-T: Normal QT: Normal *Q Meaningful Use (ADM) - VTE Risk Assess *Q Each Risk Factor Represents 1 Point: Obesity ( BMI > 25 kg/m2), Congestive heart failure (CHF) Total Score 1 Point Risk Factors: 2 Each Risk Factor Represents 2 Points: None Total Score 2 Point Risk Factors: 0 Each Risk Factor Represents 3 Points: Age 75 Years or Greater Total Score 3 Point Risk Factors: 3 Each Risk Factor Represents 5 Points: None Total Score 5 Point Risk Factors: 0 Venous Thromboembolism Risk Factor Score *Q: 5 - Problem List (1) CHF (congestive heart failure) SNOMED Code(s): 24515950 ICD Code: I50.9 - HEART FAILURE, UNSPECIFIED Status: Suspected Current Visit: Yes Qualifiers: Heart failure type: unspecified Heart failure chronicity: acute Qualified Code(s): I50.9 - Heart failure, unspecified (2) Hypoxia SNOMED Code(s): 666819297 ICD Code: R09.02 - HYPOXEMIA Status: Acute Current Visit: Yes (3) HTN (hypertension) SNOMED Code(s): 24969984 ICD Code: I10 - ESSENTIAL (PRIMARY) HYPERTENSION Status: Chronic Current Visit: Yes Qualifiers: Hypertension type: essential hypertension Qualified Code(s): I10 - Essential (primary) hypertension (4) CAD (coronary artery disease) SNOMED Code(s): 74124102 ICD Code: I25.10 - ATHSCL HEART DISEASE OF [place] CORONARY ARTERY W/O ANG PCTRS Status: Chronic Current Visit: Yes Qualifiers: Coronary Disease-Associated Artery/Lesion type: [place] artery [place] vs. transplanted heart: [place] heart Associated angina: without angina Qualified Code(s): I25.10 - Atherosclerotic heart disease of [place] coronary artery without angina pectoris (5) PVD (peripheral vascular disease) SNOMED Code(s): 370871933 ICD Code: I73.9 - PERIPHERAL VASCULAR DISEASE, UNSPECIFIED Status: Chronic Current Visit: Yes (6) Carotid stenosis Status: Chronic Current Visit: Yes Qualifiers: Laterality: right Qualified Code(s): I65.21 - Occlusion and stenosis of right carotid artery (7) History of CEA (carotid endarterectomy) SNOMED Code(s): 627850566, 181904026 ICD Code: Z98.890 - OTHER SPECIFIED POSTPROCEDURAL STATES Status: Chronic Current Visit: Yes (8) BPH (benign prostatic hyperplasia) SNOMED Code(s): 976137816 ICD Code: N40.0 - BENIGN PROSTATIC HYPERPLASIA WITHOUT LOWER URINRY TRACT SYMP Status: Chronic Current Visit: Yes Qualifiers: Lower urinary tract symptom detail: unspecified (9) WAQAR on CPAP SNOMED Code(s): 60814184 ICD Code: G47.33 - OBSTRUCTIVE SLEEP APNEA (ADULT) (PEDIATRIC); Z99.89 - DEPENDENCE ON OTHER ENABLING MACHINES AND DEVICES Status: Chronic Current Visit: Yes (10) Hx of total knee arthroplasty SNOMED Code(s): 2986789438363, 1298574688131 ICD Code: Z96.659 - PRESENCE OF UNSPECIFIED ARTIFICIAL KNEE JOINT Status: Chronic Current Visit: Yes Qualifiers: Laterality: left Qualified Code(s): Z96.652 - Presence of left artificial knee joint (11) Obesity SNOMED Code(s): 798040996, 290294149 ICD Code: E66.9 - OBESITY, UNSPECIFIED Status: Chronic Current Visit: Yes (12) Hx of CABG SNOMED Code(s): 767946083, 036251313 ICD Code: Z95.1 - PRESENCE OF AORTOCORONARY BYPASS GRAFT Status: Chronic Current Visit: Yes Problem List Initiated/Reviewed/Updated: Yes Orders Last 24hrs: Active Orders 24 hr Category Date Time Status Admission Status [Patient Status] [ADT] Stat ADT 09/15/17 14:37 Active Cardiac Monitoring [RC] . DIRECTED Care 09/15/17 12:35 Active EKG Documentation Completion [RC] STAT Care 09/15/17 12:36 Active Height and Weight [RC] DAILY Care 09/15/17 15:20 Active Intake and Output Strict [RC] ASDIRECTED Care 09/15/17 15:41 Active Oxygen Therapy [RC] PRN Care 09/15/17 15:20 Active Telemetry Monitoring [Cardiac Monitoring] [RC] . Care 09/15/17 14:43 Active DIRECTED Up ad [place]acle [RC] ASDIRECTED Care 09/15/17 15:20 Active VTE/DVT Education [RC] PER UNIT ROUTINE Care 09/15/17 15:20 Active Vital Signs [RC] Q4H Care 09/15/17 15:20 Active 2 Gram Sodium Diet [DIET] Diet 09/15/17 Dinner Active Echo 2D wo Cont [US] Urgent Exams 09/15/17 15:45 Ordered BASIC METABOLIC PANEL,BMP [CHEM] AM Lab 09/16/17 05:11 Ordered BASIC METABOLIC PANEL,BMP [CHEM] AM Lab 09/17/17 05:11 Ordered BASIC METABOLIC PANEL,BMP [CHEM] AM Lab 09/18/17 05:11 Ordered CBC WITH AUTO DIFF [HEME] AM Lab 09/16/17 05:11 Ordered CBC WITH AUTO DIFF [HEME] AM Lab 09/17/17 05:11 Ordered CBC WITH AUTO DIFF [HEME] AM Lab 09/18/17 05:11 Ordered UA W/MICROSCOPIC [URIN] Stat Lab 09/15/17 14:20 Ordered Acetaminophen [Tylenol] Med 09/15/17 15:31 Active 650 mg PO Q4H PRN Cetirizine HCl [Allergy Relief] Med 09/16/17 09:00 Ordered 10 mg PO DAILY Dexamethasone/Tobramycin [Tobradex Ophth Oint] Med 09/15/17 21:00 Ordered DOSE gm EYEBOTH BID Finasteride [Proscar] Med 09/16/17 09:00 Ordered 5 mg PO DAILY Furosemide [Lasix] Med 09/16/17 08:00 Active 40 mg IVPUSH BIDDIURETIC Heparin Sodium Med 09/15/17 15:45 Active 5,000 units SUBCUT Q12H Lisinopril [Lisinopril] Med 09/15/17 21:00 Ordered 40 mg PO BID Lutein [Lutein] Med 09/16/17 09:00 Ordered 10 mg PO DAILY Metoprolol Tartrate Med 09/15/17 21:00 Ordered 50 mg PO BID Ondansetron [Zofran ODT] Med 09/15/17 15:31 Active 4 mg PO Q4H PRN Oxybutynin Med 09/15/17 22:00 Ordered 5 mg PO TID Simvastatin [Zocor] Med 09/15/17 21:00 Ordered 80 mg PO BEDTIME Sodium Chloride 0.9% [Saline Flush] Med 09/15/17 15:31 Active 2.5 ml FLUSH ASDIRECTED PRN Saline Lock Insert [OM.PC] Routine Oth 09/15/17 15:31 Ordered Medication Orders Acetaminophen (Tylenol) 650 mg PO Q4H PRN PRN Reason: Pain (mild 1-3) Finasteride (Proscar) 5 mg PO DAILY MARIANNA Furosemide (Lasix) 40 mg IVPUSH BIDDIURETIC MARIANNA Heparin Sodium (Porcine) (Heparin Sodium) 5,000 units SUBCUT Q12H MARIANNA Non-Formulary Medication (Cetirizine Hcl [Allergy Relief]) 10 mg PO DAILY [facility] Non-Formulary Medication (Lisinopril [Lisinopril]) 40 mg PO BID [facility] Non-Formulary Medication (Lutein [Lutein]) 10 mg PO DAILY [facility] Non-Formulary Medication (Metoprolol Tartrate) 50 mg PO BID [facility] Non-Formulary Medication (Simvastatin [Zocor]) 80 mg PO BEDTIME [facility] Ondansetron HCl (Zofran Odt) 4 mg PO Q4H PRN PRN Reason: nausea, able to take PO Oxybutynin Chloride (Oxybutynin) 5 mg PO TID [facility] Sodium Chloride (Saline Flush) 2.5 ml FLUSH ASDIRECTED PRN PRN Reason: Keep Vein Open Tobramycin/Dexamethasone (Tobradex Ophth Oint) gm EYEBOTH BID [facility] Assessment/Plan Comment:: This 82 year old male admitted with suspected CHF exacerbation with hypoxia and dyspnea. 1. CHF exacerbation: Suspected. Will obtain ECHO. Lasix 40 mg IV BID. Daily weights strict I/O. Heart healthy, 2 gm low Na diet with 1.5 L FR. Monitor on telemetry. Dr Robertson to consult. Elevated extremities and place compression stockings. Will obtain records from [place], [place] and [place], all pending arrival. 2. HTN: Elevated: Will monitor with diuresis. Continue Lisinopril 40 mg BID, Metoprolol 50 mg BID. Hold Triamterene/HCTZ while diuresing for now. 3. CAD: Continue ASA and statin. Lipid panel obtained at [place] on September 13. Well controlled. 4. BPH: Stable. Continue Finasteride and Oxybutynin 5. R leg wounds: No cellulitis noted. Will consult PT for suggestions on wound care. VTE prophylaxis: Heparin. Dispo: 2-3 days pending improvement.
[2017-09-15] MEDS ORDERED: Diltiazem 25 MG/5 ML SDV IVPUSH ONE (19:55)
[2017-09-15] MEDS ORDERED: AMMONIUM LACTATE TOP PRN (19:56)
[2017-09-15] MEDS ORDERED: Warfarin 5 MG Tab PO SCH (20:00)
[2017-09-15] MEDS ORDERED: Warfarin 5 MG Tab PO ONE (20:15)
[2017-09-15] MEDS: Lisinopril 10 MG Tab PO SCH (20:16)
[2017-09-15] MEDS: Metoprolol Tartrate 50 MG Tab PO SCH (20:17)
[2017-09-15] MEDS: Simvastatin 40 MG Tab PO SCH (20:18)
[2017-09-15] MEDS ORDERED: Dexamethasone/Tobramycin 0.1-0.3% Ophth Oint 3.5 GM Tube EYEBOTH SCH (21:00)
[2017-09-15] MEDS: Oxybutynin 5 MG Tab PO SCH (21:56)
[2017-09-15] MEDS: Enoxaparin 150 MG/1 ML Syringe SUBCUT SCH (23:09)
[2017-09-16] MEDS: Oxybutynin 5 MG Tab PO SCH ×3 (05:35→21:53)
--- NOTE | 2017-09-16 07:59 | PCM.PN ---
- General Info Date of Service: 09/16/17 Admission Dx/Problem (Free Text): Admission Diagnosis/Problem Admission Diagnosis/Problem Congestive heart failure Subjective Update: Feeling a little better this morning. Shortness of breath has improved some. Still requiring small amount of oxygen. legs continue to have some swelling. Denies chest pain or palpitations. No abdominal pain. Ambulating well within his room. Functional Status: Reports: Pain Controlled, Tolerating Diet, Ambulating, Urinating - Review of Systems General: Reports: No Symptoms. Denies: Fever, Weakness, Fatigue, Malaise HEENT: Reports: No Symptoms. Denies: Headaches, Sore Throat, Visual Changes Pulmonary: Reports: Shortness of Breath (improving) Cardiovascular: Reports: Dyspnea on Exertion, Edema (peripheral). Denies: Chest Pain Gastrointestinal: Reports: No Symptoms. Denies: Abdominal Pain, Nausea, Vomiting Genitourinary: Reports: No Symptoms Musculoskeletal: Reports: No Symptoms Skin: Reports: No Symptoms Neurological: Reports: No Symptoms Psychiatric: Reports: Suicidal Ideation - Patient Data Vitals - Most Recent: Last Vital Signs Temp 98.2 F 09/16/17 03:00 Pulse 76 09/16/17 03:00 Resp 20 09/16/17 03:00 BP 137/63 09/16/17 03:00 Pulse Ox 88 L 09/16/17 03:00 Weight - Most Recent: 148.325 kg I&O - Last 24 Hours: Intake & Output 09/15/17 09/16/17 09/16/17 22:59 06:59 14:59 Intake Total 0 400 Output Total 700 2430 Balance -700 -2029 Lab Results Last 24 Hours: Laboratory Results - last 24 hr 09/15/17 09/15/17 09/15/17 Range/Units 12:30 12:30 12:30 WBC 4.48 (4.0-11.0) K/uL RBC 4.22 L (4.50-5.90) M/uL Hgb 12.2 L (13.0-17.0) g/dL Hct 38.8 (38.0-50.0) % MCV 91.9 (80.0-98.0) fL MCH 28.9 (27.0-32.0) pg MCHC 31.4 (31.0-37.0) g/dL RDW Std Deviation 49.5 (28.0-62.0) fl RDW Coeff of [place] 15 (11.0-15.0) % Plt Count 162 (150-400) K/uL MPV 9.60 (7.40-12.00) fL Neut % (Auto) 73.2 (48.0-80.0) % Lymph % (Auto) 18.3 (16.0-40.0) % [place] % (Auto) 6.5 (0.0-15.0) % Eos % (Auto) 1.6 (0.0-7.0) % Baso % (Auto) 0.4 (0.0-1.5) % Neut # (Auto) 3.3 (1.4-5.7) K/uL Lymph # (Auto) 0.8 (0.6-2.4) K/uL [place] # (Auto) 0.3 (0.0-0.8) K/uL Eos # (Auto) 0.1 (0.0-0.7) K/uL Baso # (Auto) 0.0 (0.0-0.1) K/uL Nucleated RBC % 0.0 /100WBC Nucleated RBCs # 0 K/uL INR 1.17 Sodium 146 (136-148) mmol/L Potassium 4.1 (3.5-5.1) mmol/L Chloride 109 H (98-107) mmol/L Carbon Dioxide 31.8 (21.0-32.0) mmol/L BUN 26 H (7.0-18.0) mg/dL Creatinine 1.3 (0.8-1.3) mg/dL Est Cr Clr Drug Dosing 42.37 mL/min Estimated GFR (MDRD) 53.1 ml/min Glucose 121 H (74-106) mg/dL Calcium 9.0 (8.5-10.1) mg/dL Magnesium (1.5-2.0) mg/dL Total Bilirubin 0.6 (0.2-1.0) mg/dL AST 21 (15-37) IU/L ALT 35 (14-63) IU/L Alkaline Phosphatase 49 (46-116) U/L Troponin I < 0.050 (0.000-0.056) ng/mL B-Natriuretic Peptide (<100) PG/ML Total Protein 6.9 (6.4-8.2) g/dL Albumin 3.5 (3.4-5.0) g/dL Globulin 3.4 (2.0-3.5) g/dL Albumin/Globulin Ratio 1.0 L (1.3-2.8) Amylase 32 (25-115) U/L Lipase 109 (73-393) U/L Urine Color Urine Appearance Urine pH (5.0-8.0) Ur Specific [place] (1.001-1.035) Urine Protein (NEGATIVE) mg/dL Urine Glucose (UA) (NEGATIVE) mg/dL Urine Ketones (NEGATIVE) mg/dL Urine Occult Blood (NEGATIVE) Urine Nitrite (NEGATIVE) Urine Bilirubin (NEGATIVE) Urine Urobilinogen (<2.0) EU/dL Ur Leukocyte Esterase (NEGATIVE) Urine RBC (0-2/HPF) Urine WBC (0-5/HPF) Ur Epithelial Cells (NONE-FEW) Amorphous Sediment (NEGATIVE) Urine Bacteria (NEGATIVE) 09/15/17 09/15/17 09/15/17 Range/Units 12:30 14:20 20:18 WBC (4.0-11.0) K/uL RBC (4.50-5.90) M/uL Hgb (13.0-17.0) g/dL Hct (38.0-50.0) % MCV (80.0-98.0) fL MCH (27.0-32.0) pg MCHC (31.0-37.0) g/dL RDW Std Deviation (28.0-62.0) fl RDW Coeff of [place] (11.0-15.0) % Plt Count (150-400) K/uL MPV (7.40-12.00) fL Neut % (Auto) (48.0-80.0) % Lymph % (Auto) (16.0-40.0) % [place] % (Auto) (0.0-15.0) % Eos % (Auto) (0.0-7.0) % Baso % (Auto) (0.0-1.5) % Neut # (Auto) (1.4-5.7) K/uL Lymph # (Auto) (0.6-2.4) K/uL [place] # (Auto) (0.0-0.8) K/uL Eos # (Auto) (0.0-0.7) K/uL Baso # (Auto) (0.0-0.1) K/uL Nucleated RBC % /100WBC Nucleated RBCs # K/uL INR 1.17 Sodium (136-148) mmol/L Potassium (3.5-5.1) mmol/L Chloride (98-107) mmol/L Carbon Dioxide (21.0-32.0) mmol/L BUN (7.0-18.0) mg/dL Creatinine (0.8-1.3) mg/dL Est Cr Clr Drug Dosing mL/min Estimated GFR (MDRD) ml/min Glucose (74-106) mg/dL Calcium (8.5-10.1) mg/dL Magnesium (1.5-2.0) mg/dL Total Bilirubin (0.2-1.0) mg/dL AST (15-37) IU/L ALT (14-63) IU/L Alkaline Phosphatase (46-116) U/L Troponin I (0.000-0.056) ng/mL B-Natriuretic Peptide 670 H (<100) PG/ML Total Protein (6.4-8.2) g/dL Albumin (3.4-5.0) g/dL Globulin (2.0-3.5) g/dL Albumin/Globulin Ratio (1.3-2.8) Amylase (25-115) U/L Lipase (73-393) U/L Urine Color YELLOW Urine Appearance CLEAR Urine pH 5.5 (5.0-8.0) Ur Specific [place] 1.025 (1.001-1.035) Urine Protein NEGATIVE (NEGATIVE) mg/dL Urine Glucose (UA) NEGATIVE (NEGATIVE) mg/dL Urine Ketones NEGATIVE (NEGATIVE) mg/dL Urine Occult Blood TRACE-INTACT (NEGATIVE) Urine Nitrite NEGATIVE (NEGATIVE) Urine Bilirubin NEGATIVE (NEGATIVE) Urine Urobilinogen 0.2 (<2.0) EU/dL Ur Leukocyte Esterase NEGATIVE (NEGATIVE) Urine RBC 0-1 (0-2/HPF) Urine WBC 0-1 (0-5/HPF) Ur Epithelial Cells RARE (NONE-FEW) Amorphous Sediment FEW (NEGATIVE) Urine Bacteria RARE (NEGATIVE) 09/15/17 09/16/17 09/16/17 Range/Units 20:18 05:15 05:15 WBC 3.79 L (4.0-11.0) K/uL RBC 4.08 L (4.50-5.90) M/uL Hgb 11.9 L (13.0-17.0) g/dL Hct 37.1 L (38.0-50.0) % MCV 90.9 (80.0-98.0) fL MCH 29.2 (27.0-32.0) pg MCHC 32.1 (31.0-37.0) g/dL RDW Std Deviation 49.2 (28.0-62.0) fl RDW Coeff of [place] 15 (11.0-15.0) % Plt Count 155 (150-400) K/uL MPV 9.80 (7.40-12.00) fL Neut % (Auto) 64.0 (48.0-80.0) % Lymph % (Auto) 25.1 (16.0-40.0) % [place] % (Auto) 8.2 (0.0-15.0) % Eos % (Auto) 2.4 (0.0-7.0) % Baso % (Auto) 0.3 (0.0-1.5) % Neut # (Auto) 2.4 (1.4-5.7) K/uL Lymph # (Auto) 1.0 (0.6-2.4) K/uL [place] # (Auto) 0.3 (0.0-0.8) K/uL Eos # (Auto) 0.1 (0.0-0.7) K/uL Baso # (Auto) 0.0 (0.0-0.1) K/uL Nucleated RBC % 0.0 /100WBC Nucleated RBCs # 0 K/uL INR Sodium 146 (136-148) mmol/L Potassium 3.5 (3.5-5.1) mmol/L Chloride 107 (98-107) mmol/L Carbon Dioxide 34.0 H (21.0-32.0) mmol/L BUN 26 H (7.0-18.0) mg/dL Creatinine 1.4 H (0.8-1.3) mg/dL Est Cr Clr Drug Dosing 48.93 mL/min Estimated GFR (MDRD) 48.8 ml/min Glucose 105 (74-106) mg/dL Calcium 8.8 (8.5-10.1) mg/dL Magnesium 1.7 (1.5-2.0) mg/dL Total Bilirubin (0.2-1.0) mg/dL AST (15-37) IU/L ALT (14-63) IU/L Alkaline Phosphatase (46-116) U/L Troponin I (0.000-0.056) ng/mL B-Natriuretic Peptide (<100) PG/ML Total Protein (6.4-8.2) g/dL Albumin (3.4-5.0) g/dL Globulin (2.0-3.5) g/dL Albumin/Globulin Ratio (1.3-2.8) Amylase (25-115) U/L Lipase (73-393) U/L Urine Color Urine Appearance Urine pH (5.0-8.0) Ur Specific [place] (1.001-1.035) Urine Protein (NEGATIVE) mg/dL Urine Glucose (UA) (NEGATIVE) mg/dL Urine Ketones (NEGATIVE) mg/dL Urine Occult Blood (NEGATIVE) Urine Nitrite (NEGATIVE) Urine Bilirubin (NEGATIVE) Urine Urobilinogen (<2.0) EU/dL Ur Leukocyte Esterase (NEGATIVE) Urine RBC (0-2/HPF) Urine WBC (0-5/HPF) Ur Epithelial Cells (NONE-FEW) Amorphous Sediment (NEGATIVE) Urine Bacteria (NEGATIVE) 09/16/17 Range/Units 05:15 WBC (4.0-11.0) K/uL RBC (4.50-5.90) M/uL Hgb (13.0-17.0) g/dL Hct (38.0-50.0) % MCV (80.0-98.0) fL MCH (27.0-32.0) pg MCHC (31.0-37.0) g/dL RDW Std Deviation (28.0-62.0) fl RDW Coeff of [place] (11.0-15.0) % Plt Count (150-400) K/uL MPV (7.40-12.00) fL Neut % (Auto) (48.0-80.0) % Lymph % (Auto) (16.0-40.0) % [place] % (Auto) (0.0-15.0) % Eos % (Auto) (0.0-7.0) % Baso % (Auto) (0.0-1.5) % Neut # (Auto) (1.4-5.7) K/uL Lymph # (Auto) (0.6-2.4) K/uL [place] # (Auto) (0.0-0.8) K/uL Eos # (Auto) (0.0-0.7) K/uL Baso # (Auto) (0.0-0.1) K/uL Nucleated RBC % /100WBC Nucleated RBCs # K/uL INR 1.20 Sodium (136-148) mmol/L Potassium (3.5-5.1) mmol/L Chloride (98-107) mmol/L Carbon Dioxide (21.0-32.0) mmol/L BUN (7.0-18.0) mg/dL Creatinine (0.8-1.3) mg/dL Est Cr Clr Drug Dosing mL/min Estimated GFR (MDRD) ml/min Glucose (74-106) mg/dL Calcium (8.5-10.1) mg/dL Magnesium (1.5-2.0) mg/dL Total Bilirubin (0.2-1.0) mg/dL AST (15-37) IU/L ALT (14-63) IU/L Alkaline Phosphatase (46-116) U/L Troponin I (0.000-0.056) ng/mL B-Natriuretic Peptide (<100) PG/ML Total Protein (6.4-8.2) g/dL Albumin (3.4-5.0) g/dL Globulin (2.0-3.5) g/dL Albumin/Globulin Ratio (1.3-2.8) Amylase (25-115) U/L Lipase (73-393) U/L Urine Color Urine Appearance Urine pH (5.0-8.0) Ur Specific [place] (1.001-1.035) Urine Protein (NEGATIVE) mg/dL Urine Glucose (UA) (NEGATIVE) mg/dL Urine Ketones (NEGATIVE) mg/dL Urine Occult Blood (NEGATIVE) Urine Nitrite (NEGATIVE) Urine Bilirubin (NEGATIVE) Urine Urobilinogen (<2.0) EU/dL Ur Leukocyte Esterase (NEGATIVE) Urine RBC (0-2/HPF) Urine WBC (0-5/HPF) Ur Epithelial Cells (NONE-FEW) Amorphous Sediment (NEGATIVE) Urine Bacteria (NEGATIVE) Med Orders - Current: Current Medications Acetaminophen (Tylenol) 650 mg PO Q4H PRN PRN Reason: Pain (mild 1-3) Aspirin (Aspirin) 81 mg PO DAILY [facility] Cetirizine HCl (Zyrtec) 10 mg PO DAILY [facility] Enoxaparin Sodium (Lovenox) 150 mg SUBCUT Q12H [facility] Last Admin: 09/15/17 23:09 Dose: 150 mg Finasteride (Proscar) 5 mg PO DAILY [facility] Furosemide (Lasix) 40 mg IVPUSH BIDDIURETIC [facility] Lisinopril (Prinivil) 40 mg PO BID [facility] Last Admin: 09/15/17 20:16 Dose: 40 mg Metoprolol Tartrate (Lopressor) 50 mg PO BID [facility] Last Admin: 09/15/17 20:17 Dose: 50 mg Ondansetron HCl (Zofran Odt) 4 mg PO Q4H PRN PRN Reason: nausea, able to take PO Oxybutynin Chloride (Oxybutynin) 5 mg PO TID [facility] Last Admin: 09/16/17 05:35 Dose: 5 mg Lutein [Lutein] 10 (Mg) 1 each PO DAILY [facility] Alfuzosin Hcl 10 Mg 1 each PO DAILY [facility] Ammonium Lactate 3 (Gm) 3 each TOP BID PRN PRN Reason: dry skin Garlic [Garlic Oil] (500 Mg) 1 each PO DAILY [facility] Gluc Hcl/Csa/[place] Hy /Hyalur Ac [ Glucosamine Chondroitin] 1 each PO DAILY [facility] Potassium Chloride (Klor-Con M20) 40 meq PO BID [facility] Simvastatin (Zocor) 80 mg PO BEDTIME [facility] Last Admin: 09/15/17 20:18 Dose: 80 mg Sodium Chloride (Saline Flush) 2.5 ml FLUSH ASDIRECTED PRN PRN Reason: Keep Vein Open Triamterene/HCTZ (Maxzide 50-75 Mg) 1 each PO DAILY [facility] Discontinued Medications Diltiazem HCl (Diltiazem) 20 mg IVPUSH ONETIME ONE Stop: 09/15/17 19:56 Last Admin: 09/15/17 20:18 Dose: 20 mg Furosemide (Lasix) 20 mg IVPUSH ONETIME ONE Stop: 09/15/17 13:39 Last Admin: 09/15/17 14:35 Dose: Not Given Furosemide (Lasix) 20 mg IVPUSH ONETIME ONE Stop: 09/15/17 14:31 Last Admin: 09/15/17 14:35 Dose: 20 mg Furosemide (Lasix) 40 mg IVPUSH NOW ONE Stop: 09/15/17 19:01 Last Admin: 09/15/17 18:47 Dose: 40 mg Heparin Sodium (Porcine) (Heparin Sodium) 5,000 units SUBCUT Q12H [facility] Last Admin: 09/15/17 18:47 Dose: 5,000 units Tobramycin/Dexamethasone (Tobradex Ophth Oint) 3.5 gm EYEBOTH BID [facility] Warfarin Sodium (Coumadin) 5 mg PO DAILY [facility] Stop: 09/15/17 20:01 Last Admin: 09/16/17 07:47 Dose: Not Given Warfarin Sodium (Coumadin) 5 mg PO ONETIME ONE Stop: 09/15/17 20:16 Last Admin: 09/15/17 20:39 Dose: 5 mg - Exam General: Alert, Oriented, Cooperative, No Acute Distress Neck: Supple Lungs: Clear to Auscultation. No: Normal Respiratory Effort (some dypsnea noted with speech and exertion) Cardiovascular: Irregular Rhythm, Tachycardia (intermittent and with activity) GI/Abdominal Exam: Normal Bowel Sounds, Soft, Non-Tender, No Organomegaly, No Distention, No Abnormal Bruit, No Mass, Pelvis Stable Extremities: Normal Inspection, Normal Range of Motion, Non-Tender, Normal Capillary Refill, Pedal Edema (+3 pitting edema bilaterally more+4 to L leg.) Wound/Incisions: Other (Wounds to lateral and medial R lower leg, very clean in appearance will place Aquacel Ag Extra to these per wound care. ). No: Erythema Neurological: No New Focal Deficit Psy/Mental Status: Alert, Normal Affect, Normal Mood - Problem List & Annotations (1) CHF (congestive heart failure) SNOMED Code(s): 60532128 Code(s): I50.9 - HEART FAILURE, UNSPECIFIED Status: Suspected Current Visit: Yes Qualifiers: Heart failure type: unspecified Heart failure chronicity: acute Qualified Code(s): I50.9 - Heart failure, unspecified (2) Hypoxia SNOMED Code(s): 725562372 Code(s): R09.02 - HYPOXEMIA Status: Acute Current Visit: Yes (3) Paroxysmal A-fib SNOMED Code(s): 265360300 Code(s): I48.0 - PAROXYSMAL ATRIAL FIBRILLATION Status: Acute Current Visit: Yes (4) HTN (hypertension) SNOMED Code(s): 40403290 Code(s): I10 - ESSENTIAL (PRIMARY) HYPERTENSION Status: Chronic Current Visit: Yes Qualifiers: Hypertension type: essential hypertension Qualified Code(s): I10 - Essential (primary) hypertension (5) CAD (coronary artery disease) SNOMED Code(s): 66653844 Code(s): I25.10 - ATHSCL HEART DISEASE OF [place] CORONARY ARTERY W/O ANG PCTRS Status: Chronic Current Visit: Yes Qualifiers: Coronary Disease-Associated Artery/Lesion type: [place] artery [place] vs. transplanted heart: [place] heart Associated angina: without angina Qualified Code(s): I25.10 - Atherosclerotic heart disease of [place] coronary artery without angina pectoris (6) PVD (peripheral vascular disease) SNOMED Code(s): 499855087 Code(s): I73.9 - PERIPHERAL VASCULAR DISEASE, UNSPECIFIED Status: Chronic Current Visit: Yes (7) Carotid stenosis Status: Chronic Current Visit: Yes Qualifiers: Laterality: right Qualified Code(s): I65.21 - Occlusion and stenosis of right carotid artery (8) History of CEA (carotid endarterectomy) SNOMED Code(s): 341052010, 482592974 Code(s): Z98.890 - OTHER SPECIFIED POSTPROCEDURAL STATES Status: Chronic Current Visit: Yes (9) BPH (benign prostatic hyperplasia) SNOMED Code(s): 666616771 Code(s): N40.0 - BENIGN PROSTATIC HYPERPLASIA WITHOUT LOWER URINRY TRACT SYMP Status: Chronic Current Visit: Yes Qualifiers: Lower urinary tract symptom detail: unspecified (10) WAQAR on CPAP SNOMED Code(s): 12447210 Code(s): G47.33 - OBSTRUCTIVE SLEEP APNEA (ADULT) (PEDIATRIC); Z99.89 - DEPENDENCE ON OTHER ENABLING MACHINES AND DEVICES Status: Chronic Current Visit: Yes (11) Hx of total knee arthroplasty SNOMED Code(s): 2791908815462, 2134948022201 Code(s): Z96.659 - PRESENCE OF UNSPECIFIED ARTIFICIAL KNEE JOINT Status: Chronic Current Visit: Yes Qualifiers: Laterality: left Qualified Code(s): Z96.652 - Presence of left artificial knee joint (12) Obesity SNOMED Code(s): 790738069, 710483741 Code(s): E66.9 - OBESITY, UNSPECIFIED Status: Chronic Current Visit: Yes (13) Hx of CABG SNOMED Code(s): 286636792, 683254784 Code(s): Z95.1 - PRESENCE OF AORTOCORONARY BYPASS GRAFT Status: Chronic Current Visit: Yes - Problem List Review Problem List Initiated/Reviewed/Updated: Yes - My Orders Last 24 Hours: My Active Orders 09/15/17 14:43 Telemetry Monitoring [Cardiac Monitoring] [RC] Q8H 09/15/17 15:20 Height and Weight [RC] DAILY Oxygen Therapy [RC] PRN Up ad Miracle [RC] ASDIRECTED VTE/DVT Education [RC] PER UNIT ROUTINE Vital Signs [RC] Q4H 09/15/17 15:31 Acetaminophen [Tylenol] 650 mg PO Q4H PRN Ondansetron [Zofran ODT] 4 mg PO Q4H PRN Sodium Chloride 0.9% [Saline Flush] 2.5 ml FLUSH ASDIRECTED PRN Saline Lock Insert [OM.PC] Routine 09/15/17 15:41 Intake and Output Strict [RC] ASDIRECTED 09/15/17 15:45 Echo Comp wo Cont [US] Urgent 09/15/17 16:40 Notify Provider Consults [RC] ASDIRECTED Consult to Physician [CONS] Routine 09/15/17 16:54 Resuscitation Status Routine 09/15/17 17:09 Elevate Extremity [RC] BID DASH Hose [Antiembolic Hose] [OM.PC] Routine 09/15/17 17:10 Consult to Physical Therapy [PT Evaluation and Treatment] [CONS] Routine 09/15/17 21:00 Lisinopril [Prinivil] 40 mg PO BID Metoprolol Tartrate [Lopressor] 50 mg PO BID Simvastatin [Zocor] 80 mg PO BEDTIME 09/15/17 22:00 Oxybutynin 5 mg PO TID 09/15/17 Dinner 2 Gram Sodium Diet [DIET] 09/16/17 07:55 MAGNESIUM [CHEM] Routine 09/16/17 08:00 Furosemide [Lasix] 40 mg IVPUSH BIDDIURETIC 09/16/17 09:00 Aspirin 81 mg PO DAILY Cetirizine [ZyrTEC] 10 mg PO DAILY Finasteride [Proscar] 5 mg PO DAILY Patient's Own Medication [Ptom] 1 each PO DAILY Potassium Chloride [Klor-Con M20] 40 meq PO BID 09/17/17 05:11 BASIC METABOLIC PANEL,BMP [CHEM] AM CBC WITH AUTO DIFF [HEME] AM 09/18/17 05:11 BASIC METABOLIC PANEL,BMP [CHEM] AM CBC WITH AUTO DIFF [HEME] AM - Plan Plan:: This 82 year old male admitted with suspected CHF exacerbation with hypoxia and dyspnea. 1. CHF exacerbation: ECHO obtained but windows of poor quality and non diagnostic. Per Dr Robertson, he will need repeat with contrast. Continue Lasix 40 mg IV BID. Diureses 2700 since yesterday. Continue Daily weights strict I/O. Heart healthy, 2 gm low Na diet with 1.5 L FR. Monitor on telemetry. Dr Robertson to consult, I appreciate his assistance with this patient. Elevate extremities and place compression stockings. Will obtain records from [facility], [facility], all pending arrival. 2. Paroxysmal Afib: Asymptomatic. HR elevates with activity. May be secondary to CHF, but new diagnoses. Metoprolol Tartrate increased to 75mg BID. CHADS VASC 5, does need anticoagulation. Was started on Lovenox and Coumadin last evening. Patient indescisive regarding which agent he would like. Today, after discussion with his family he would like to try Eliquis. Spoke with [facility] sales representative, need anticoagulation verification first. Labs and dosing sent to [facility] and they will start this process. I will await to hear back. 3. HTN: Stable. Will monitor with diuresis. Continue Lisinopril 40 mg BID Triamterene/HCTZ. 4.CAD: Continue ASA and statin. Lipid panel obtained at [facility] on September 13. Well controlled. 5. BPH: Stable. Continue Finasteride and Oxybutynin 6. R leg wounds: No cellulitis noted. Will consult PT for suggestions on wound care. PT recommended Aquacel Ag Extra to each wound and encouraged edema reduction to help with wound healing. VTE prophylaxis: Lovenox and Coumadin started, when/if able will switch to Eliquis. When [facility] oks. Dispo: 2-3 days pending improvement.
[2017-09-16] MEDS: Metoprolol Tartrate 50 MG Tab PO SCH ×3 (08:14→20:47)
[2017-09-16] MEDS: Aspirin 81 MG Tab.Chew PO SCH (08:14)
[2017-09-16] MEDS: Cetirizine 10 MG Tab PO SCH (08:14)
[2017-09-16] MEDS: Finasteride 5 MG Tab PO SCH (08:14)
[2017-09-16] MEDS: Lisinopril 10 MG Tab PO SCH ×2 (08:15→20:43)
[2017-09-16] MEDS: Furosemide 40 MG/4 ML VIAL IVPUSH SCH ×2 (08:16→13:17)
[2017-09-16] MEDS: [UNRECOGNIZED DRUG - OTHER] PO SCH (08:20)
[2017-09-16] MEDS: GARLIC 500 MG PO SCH (08:20)
[2017-09-16] MEDS: Alfuzosin Hcl 10 MG PO SCH (08:20)
[2017-09-16] MEDS: Potassium Chloride 20 MEQ Tab.ER PO SCH ×2 (08:25→20:43)
[2017-09-16] MEDS: LUTEIN 10 MG PO SCH (08:33)
[2017-09-16] MEDS ORDERED: Hydrochlorothiazide/Triamterene 50-75 MG Tab PO SCH (09:00)
--- NOTE | 2017-09-16 09:14 | CONS ---
DATE OF CONSULTATION: DATE OF : 1935 PRIMARY CARE PHYSICIAN: None PCP REASON FOR CONSULTATION: Heart failure. HISTORY OF PRESENT ILLNESS: This is an 82-year-old gentlemen who has a history of CAD, CABG x3 in [place] in 2006, right carotid endarterectomy, peripheral vascular disease, and obstructive sleep apnea using CPAP, who was admitted in the hospital from the [facility] due to increasing shortness of breath as well as a 30-pound weight gain. He has been in his usual state of health until about 1-1/2 year ago, he started feeling being more short of breath as well as increasing leg swelling and has gained weight, around 40 pounds. He also reported orthopnea and PND. He had a history of a history of severe CAD and underwent CABG in 2006 in the [facility] in [place]. At that time, he presented with right shoulder pain and then was found to have a heart attack and he was told that he had a triple-vessel disease needing a CABG surgery. Since then, he has been doing well. No more chest pain, shoulder pain, and he recalls prior to one week and a half ago he was still doing workout at the [facility] without any problem; however, starting 1-1/2 weeks ago, he started being more short of breath and he has gained weight. The last stress test that he had was in 2013. At that time, he had it preop for the right carotid endarterectomy and he was hold that the stress test was negative. Other than that, he is retired. He is still doing some house work, taking care of himself, fairly active. PAST MEDICAL HISTORY: Includin. CAD, status post CABG. 2. Right carotid endarterectomy. 3. Peripheral vascular disease. 4. Sleep apnea, using CPAP. 5. History of impaired fasting glucose. 6. BPH. 7. Hypertension. 8. Morbid obesity. ALLERGIES: No known drug allergies. FAMILY HISTORY: No family history of CAD. SOCIAL HISTORY: Former smoker. Occasional drink. No drug use. HOME MEDICATIONS: The cardiac medications that he is taking at home include metoprolol 50 mg twice a day, simvastatin 80 mg once a day, HCTZ 50/triamterene 75 one tablet every morning, lisinopril 40 mg once a day. REVIEW OF SYSTEMS: Has been negative except indicated in HPI. PHYSICAL EXAMINATION: VITAL SIGNS: Initial blood pressure is 148/87. Current blood pressure is 137/63. O2 saturation initial is 86, but after diuresing, this seems to be improving in the range of 90 to 95, respiration is 19, temperature 36.2, heart rate is around 100 to 110. He is on oxygen 4 L. HEENT: Mildly dry and mildly pale. No jaundice. JVD positive. HEART: Normal S1, S2. I did not hear any murmur; however, there is a regular rate and rhythm. LUNGS: Crackle bilaterally and minimal wheezing. ABDOMEN: Soft, not tender, and bowel sounds present. No hepatosplenomegaly. EXTREMITIES: No severe edema, like 3+ bilaterally, and there is possibly venous discoloration on the left leg. INVESTIGATION: CBC showed WBC of 4, hematocrit of 38, platelets 162. INR 1.1. Sodium 146, potassium 4.1, chloride 109, bicarb 31, BUN 26, creatinine 1.3, glucose 121. BNP 670. Troponin less than 0.05. Urinalysis is negative for infection. EKG: We do not have a previous EKG to compare; however, the EKG currently shows atrial fibrillation and QRS duration is 108. Echocardiogram: Poor visualization. I could not see endocardial border very well, but possibly grossly preserved ejection fraction. There is no significant valvular abnormality detected on the echocardiogram, however, is not a very good study. Chest x-ray show vascular congestion, cardiomegaly, and also elevated right hemidiaphragm. ASSESSMENT AND PLAN: This is an 82-year-old male who has a history of coronary artery disease, coronary artery bypass graft, hypertension, former smoker, presented to the hospital with hypoxic respiratory failure and gaining weight in the setting of decompensated congestive heart failure. Congestive heart failure: Echocardiogram, seems to be probably preserved ejection fraction, however, is very poor visualization. This needs to be repeated definitely, but he probably needs definite contact contrast. He was found to have an atrial fibrillation in the hospital; however, we do not have the previous EKG to compare. He did not feel any heart palpitation or racing. We do not know how long the atrial fibrillation has been going on. It may be a cause of heart failure or it could be a consequence from the heart failure. Definitely, he has an elevated CHADS-VASc score of at least 5 including coronary artery disease, hypertension, heart failure, and age, so he would need anticoagulation for stroke prevention for residential. I explained to him about the option of NOAC as well as Coumadin. He was indecisive about the choice of anticoagulation, and he denies any bleeding problems currently or upcoming surgery. For now, I will continue the beta-miki that he is on as well as the BOUBACAR inhibitor. He should be continuing taking aspirin 81 mg once a day as well as Lasix 40 mg IV twice a day for diuresing. He should be on the low-sodium diet as well as a fluid restriction less than 2 L. Regarding the left hemidiaphragm elevation, this may need to be worked up, probably do the CT of the chest to see any atelectasis or any obstructive mass or anything that may cause the left hemidiaphragm elevation. He was also explained about the risks of a stroke from atrial fibrillation and the need for anticoagulation. CARLOS / LISANDRA /[id number]
[2017-09-16] MEDS: Enoxaparin 150 MG/1 ML Syringe SUBCUT SCH ×2 (11:05→21:54)
[2017-09-16] MEDS ORDERED: Magnesium Sulfate/Water 2 GM in Premix Bag 1 BAG IV ONE (12:24)
--- NOTE | 2017-09-16 13:01 | CT ---
EXAMINATION: CT chest without contrast HISTORY: Dyspnea and hypoxia COMPARISON: CT abdomen and pelvis dated 11/14/2012. TECHNIQUE: Axial CT images obtained through the chest without contrast. Coronal and sagittal reconstr uctions obtained. FINDINGS: There is a small right pleural effusion noted. Bibasilar atelectasis and/or scarring. There is a 1 cm nodular area within the left lung base which is likely linear and orientation when viewed on the coronal imaging and also likely represents scarring. Heart is normal in size without a pericardial effusion. Mild biatrial prominence. Coronary artery alicja cifications are noted. Median sternotomy wires are present. No bulky mediastinal lymphadenopathy or b ilateral hilar fullness. No axillary lymphadenopathy. Thoracic aorta is normal in caliber. Mild Promi nence of the pulmonary arteries. Trace abdominal ascites. No suspicious osseous abnormalities identified. There is compression of the T12 vertebral body, uncha nged. IMPRESSION: 1. Small right pleural effusion. 2. Bibasilar atelectasis and/or scarring. 3. Nodular 1 cm area within the left lung base, also likely atelectasis and/or scarring. However give n the appearance follow-up in 3 months may be beneficial. 4. Biatrial enlargement. 5. Coronary artery calcifications. 6. Trace abdominal ascites.
[2017-09-16] MEDS ORDERED: Warfarin 5 MG Tab PO SCH (14:00)
[2017-09-16] MEDS: Simvastatin 40 MG Tab PO SCH (20:43)
[2017-09-17] MEDS: Oxybutynin 5 MG Tab PO SCH ×3 (05:36→22:13)
[2017-09-17] MEDS: Furosemide 40 MG/4 ML VIAL IVPUSH SCH ×2 (07:56→13:41)
[2017-09-17] MEDS: Finasteride 5 MG Tab PO SCH (08:00)
[2017-09-17] MEDS: Potassium Chloride 20 MEQ Tab.ER PO SCH ×2 (08:00→20:55)
[2017-09-17] MEDS: Metoprolol Tartrate 25 MG Tab PO SCH ×3 (08:00→22:13)
[2017-09-17] MEDS: Cetirizine 10 MG Tab PO SCH (08:00)
[2017-09-17] MEDS: Lisinopril 10 MG Tab PO SCH ×2 (08:00→20:55)
[2017-09-17] MEDS: GARLIC 500 MG PO SCH (08:01)
[2017-09-17] MEDS: Aspirin 81 MG Tab.Chew PO SCH (08:01)
[2017-09-17] MEDS: Alfuzosin Hcl 10 MG PO SCH (08:01)
[2017-09-17] MEDS: [UNRECOGNIZED DRUG - OTHER] PO SCH (08:01)
[2017-09-17] MEDS: LUTEIN 10 MG PO SCH (08:02)
--- NOTE | 2017-09-17 08:05 | PCM.PN ---
- General Info Date of Service: 09/17/17 Admission Dx/Problem (Free Text): Admission Diagnosis/Problem Admission Diagnosis/Problem Congestive heart failure Subjective Update: Feeling better today. Dyspnea is improving. No cough. No chest pain. Swelling to lower legs is improving. No other concerns today. Functional Status: Reports: Pain Controlled, Tolerating Diet, Ambulating, Urinating - Review of Systems General: Reports: No Symptoms. Denies: Fever, Weakness, Fatigue HEENT: Reports: No Symptoms. Denies: Headaches, Sore Throat Pulmonary: Reports: Shortness of Breath (much improved. ). Denies: Cough Cardiovascular: Reports: Dyspnea on Exertion, Edema (improving. ). Denies: Chest Pain, Palpitations Gastrointestinal: Reports: Other (feels less fullness in abdomen.) Genitourinary: Reports: No Symptoms. Denies: Dysuria, Frequency, Burning Musculoskeletal: Reports: No Symptoms Skin: Reports: No Symptoms Neurological: Reports: No Symptoms Psychiatric: Reports: No Symptoms - Patient Data Vitals - Most Recent: Last Vital Signs Temp 98.9 F 09/17/17 04:00 Pulse 96 09/17/17 08:00 Resp 20 09/17/17 04:00 BP 142/87 H 09/17/17 08:00 Pulse Ox 90 L 09/17/17 04:00 Weight - Most Recent: 148.325 kg I&O - Last 24 Hours: Intake & Output 09/16/17 09/17/17 09/17/17 22:59 06:59 14:59 Intake Total 750 750 Output Total 4200 2200 Balance -3450 -1450 Lab Results Last 24 Hours: Laboratory Results - last 24 hr 09/16/17 09/17/17 09/17/17 Range/Units 05:15 04:55 04:55 WBC 5.00 (4.0-11.0) K/uL RBC 4.15 L (4.50-5.90) M/uL Hgb 11.9 L (13.0-17.0) g/dL Hct 37.5 L (38.0-50.0) % MCV 90.4 (80.0-98.0) fL MCH 28.7 (27.0-32.0) pg MCHC 31.7 (31.0-37.0) g/dL RDW Std Deviation 48.4 (28.0-62.0) fl RDW Coeff of Yanick 15 (11.0-15.0) % Plt Count 163 (150-400) K/uL MPV 9.70 (7.40-12.00) fL Neut % (Auto) 60.6 (48.0-80.0) % Lymph % (Auto) 27.8 (16.0-40.0) % Webb % (Auto) 7.6 (0.0-15.0) % Eos % (Auto) 3.6 (0.0-7.0) % Baso % (Auto) 0.4 (0.0-1.5) % Neut # (Auto) 3.0 (1.4-5.7) K/uL Lymph # (Auto) 1.4 (0.6-2.4) K/uL Webb # (Auto) 0.4 (0.0-0.8) K/uL Eos # (Auto) 0.2 (0.0-0.7) K/uL Baso # (Auto) 0.0 (0.0-0.1) K/uL Nucleated RBC % 0.0 /100WBC Nucleated RBCs # 0 K/uL INR Sodium 142 (136-148) mmol/L Potassium 3.7 (3.5-5.1) mmol/L Chloride 106 (98-107) mmol/L Carbon Dioxide 35.1 H (21.0-32.0) mmol/L BUN 29 H (7.0-18.0) mg/dL Creatinine 1.5 H (0.8-1.3) mg/dL Est Cr Clr Drug Dosing 45.67 mL/min Estimated GFR (MDRD) 45.0 ml/min Glucose 126 H (74-106) mg/dL Calcium 9.2 (8.5-10.1) mg/dL Magnesium 1.6 2.0 (1.5-2.0) mg/dL 09/17/17 Range/Units 04:55 WBC (4.0-11.0) K/uL RBC (4.50-5.90) M/uL Hgb (13.0-17.0) g/dL Hct (38.0-50.0) % MCV (80.0-98.0) fL MCH (27.0-32.0) pg MCHC (31.0-37.0) g/dL RDW Std Deviation (28.0-62.0) fl RDW Coeff of Yanick (11.0-15.0) % Plt Count (150-400) K/uL MPV (7.40-12.00) fL Neut % (Auto) (48.0-80.0) % Lymph % (Auto) (16.0-40.0) % Webb % (Auto) (0.0-15.0) % Eos % (Auto) (0.0-7.0) % Baso % (Auto) (0.0-1.5) % Neut # (Auto) (1.4-5.7) K/uL Lymph # (Auto) (0.6-2.4) K/uL Webb # (Auto) (0.0-0.8) K/uL Eos # (Auto) (0.0-0.7) K/uL Baso # (Auto) (0.0-0.1) K/uL Nucleated RBC % /100WBC Nucleated RBCs # K/uL INR 1.20 Sodium (136-148) mmol/L Potassium (3.5-5.1) mmol/L Chloride (98-107) mmol/L Carbon Dioxide (21.0-32.0) mmol/L BUN (7.0-18.0) mg/dL Creatinine (0.8-1.3) mg/dL Est Cr Clr Drug Dosing mL/min Estimated GFR (MDRD) ml/min Glucose (74-106) mg/dL Calcium (8.5-10.1) mg/dL Magnesium (1.5-2.0) mg/dL Med Orders - Current: Current Medications Acetaminophen (Tylenol) 650 mg PO Q4H PRN PRN Reason: Pain (mild 1-3) Aspirin (Aspirin) 81 mg PO DAILY [facility] Last Admin: 09/17/17 08:01 Dose: 81 mg Cetirizine HCl (Zyrtec) 10 mg PO DAILY [facility] Last Admin: 09/17/17 08:00 Dose: 10 mg Enoxaparin Sodium (Lovenox) 150 mg SUBCUT Q12H [facility] Last Admin: 09/16/17 21:54 Dose: 150 mg Finasteride (Proscar) 5 mg PO DAILY [facility] Last Admin: 09/17/17 08:00 Dose: 5 mg Furosemide (Lasix) 40 mg IVPUSH BIDDIURETIC [facility] Last Admin: 09/17/17 07:56 Dose: 40 mg Lisinopril (Prinivil) 40 mg PO BID [facility] Last Admin: 09/17/17 08:00 Dose: 40 mg Metoprolol Tartrate (Lopressor) 75 mg PO TID [facility] Last Admin: 09/17/17 08:00 Dose: 75 mg Ondansetron HCl (Zofran Odt) 4 mg PO Q4H PRN PRN Reason: nausea, able to take PO Oxybutynin Chloride (Oxybutynin) 5 mg PO TID [facility] Last Admin: 09/17/17 05:36 Dose: 5 mg Lutein [Lutein] 10 (Mg) 1 each PO DAILY [facility] Last Admin: 09/17/17 08:02 Dose: Not Given Alfuzosin Hcl 10 Mg 1 each PO DAILY [facility] Last Admin: 09/17/17 08:01 Dose: 1 each Ammonium Lactate 3 (Gm) 3 each TOP BID PRN PRN Reason: dry skin Garlic [Garlic Oil] (500 Mg) 1 each PO DAILY [facility] Last Admin: 09/17/17 08:01 Dose: Not Given Gluc Hcl/Csa/Rowdy Hy /Hyalur Ac [ Glucosamine Chondroitin] 1 each PO DAILY [facility] Last Admin: 09/17/17 08:01 Dose: Not Given Potassium Chloride (Klor-Con M20) 40 meq PO BID [facility] Last Admin: 09/17/17 08:00 Dose: 40 meq Simvastatin (Zocor) 80 mg PO BEDTIME [facility] Last Admin: 09/16/17 20:43 Dose: 80 mg Sodium Chloride (Saline Flush) 2.5 ml FLUSH ASDIRECTED PRN PRN Reason: Keep Vein Open Warfarin Sodium (Coumadin) 10 mg PO 09/17/17@1400 [facility] Stop: 09/17/17 14:01 Warfarin Sodium (Coumadin Ask) 1 each PO DAILY@1400 [facility] Discontinued Medications Diltiazem HCl (Diltiazem) 20 mg IVPUSH ONETIME ONE Stop: 09/15/17 19:56 Last Admin: 09/15/17 20:18 Dose: 20 mg Furosemide (Lasix) 20 mg IVPUSH ONETIME ONE Stop: 09/15/17 13:39 Last Admin: 09/15/17 14:35 Dose: Not Given Furosemide (Lasix) 20 mg IVPUSH ONETIME ONE Stop: 09/15/17 14:31 Last Admin: 09/15/17 14:35 Dose: 20 mg Furosemide (Lasix) 40 mg IVPUSH NOW ONE Stop: 09/15/17 19:01 Last Admin: 09/15/17 18:47 Dose: 40 mg Heparin Sodium (Porcine) (Heparin Sodium) 5,000 units SUBCUT Q12H [facility] Last Admin: 09/15/17 18:47 Dose: 5,000 units Magnesium Sulfate 2 gm/ Premix 50 mls @ 50 mls/hr IV ONETIME ONE Stop: 09/16/17 13:23 Last Admin: 09/16/17 13:14 Dose: 50 mls/hr Metoprolol Tartrate (Lopressor) 50 mg PO BID [facility] Last Admin: 09/16/17 08:14 Dose: Not Given Metoprolol Tartrate (Lopressor) 75 mg PO BID [facility] Stop: 09/17/17 09:00 Last Admin: 09/16/17 20:47 Dose: 75 mg Tobramycin/Dexamethasone (Tobradex Ophth Oint) 3.5 gm EYEBOTH BID [facility] Triamterene/HCTZ (Maxzide 50-75 Mg) 1 each PO DAILY [facility] Last Admin: 09/16/17 08:14 Dose: 1 each Warfarin Sodium (Coumadin) 5 mg PO DAILY [facility] Stop: 09/15/17 20:01 Last Admin: 09/16/17 07:47 Dose: Not Given Warfarin Sodium (Coumadin) 5 mg PO ONETIME ONE Stop: 09/15/17 20:16 Last Admin: 09/15/17 20:39 Dose: 5 mg Warfarin Sodium (Coumadin Ask) 1 each PO ONETIME ONE Stop: 09/16/17 13:41 Last Admin: 09/16/17 14:55 Dose: Not Given Warfarin Sodium (Coumadin) 5 mg PO DAILY@1400 [facility] Last Admin: 09/16/17 15:18 Dose: 5 mg - Exam Quality Assessment: Supplemental Oxygen (intermittently), DVT Prophylaxis General: Alert, Oriented, Cooperative, No Acute Distress Neck: Supple Lungs: Clear to Auscultation, Normal Respiratory Effort. No: Crackles Cardiovascular: Regular Rate, Irregular Rhythm. No: Murmurs GI/Abdominal Exam: Normal Bowel Sounds, Soft, Non-Tender, No Organomegaly, No Distention, No Abnormal Bruit, No Mass, Pelvis Stable Extremities: Normal Range of Motion, Pedal Edema (+2 to R leg and +3 to left, both pitting, but continues to improved with diuresis.) Wound/Incisions: Dressing Dry and Intact (to bilateral R lower leg wounds. No eythema.). No: Erythema Neurological: No New Focal Deficit Psy/Mental Status: Alert, Normal Affect, Normal Mood - Problem List & Annotations (1) CHF (congestive heart failure) SNOMED Code(s): 20168777 Code(s): I50.9 - HEART FAILURE, UNSPECIFIED Status: Suspected Current Visit: Yes Qualifiers: Heart failure type: unspecified Heart failure chronicity: acute Qualified Code(s): I50.9 - Heart failure, unspecified (2) Hypoxia SNOMED Code(s): 608228650 Code(s): R09.02 - HYPOXEMIA Status: Acute Current Visit: Yes (3) Paroxysmal A-fib SNOMED Code(s): 147822338 Code(s): I48.0 - PAROXYSMAL ATRIAL FIBRILLATION Status: Acute Current Visit: Yes (4) HTN (hypertension) SNOMED Code(s): 31855199 Code(s): I10 - ESSENTIAL (PRIMARY) HYPERTENSION Status: Chronic Current Visit: Yes Qualifiers: Hypertension type: essential hypertension Qualified Code(s): I10 - Essential (primary) hypertension (5) CAD (coronary artery disease) SNOMED Code(s): 33368390 Code(s): I25.10 - ATHSCL HEART DISEASE OF [place] CORONARY ARTERY W/O ANG PCTRS Status: Chronic Current Visit: Yes Qualifiers: Coronary Disease-Associated Artery/Lesion type: [place] artery [place] vs. transplanted heart: [place] heart Associated angina: without angina Qualified Code(s): I25.10 - Atherosclerotic heart disease of [place] coronary artery without angina pectoris (6) PVD (peripheral vascular disease) SNOMED Code(s): 089276565 Code(s): I73.9 - PERIPHERAL VASCULAR DISEASE, UNSPECIFIED Status: Chronic Current Visit: Yes (7) Carotid stenosis Status: Chronic Current Visit: Yes Qualifiers: Laterality: right Qualified Code(s): I65.21 - Occlusion and stenosis of right carotid artery (8) History of CEA (carotid endarterectomy) SNOMED Code(s): 956338116, 798763210 Code(s): Z98.890 - OTHER SPECIFIED POSTPROCEDURAL STATES Status: Chronic Current Visit: Yes (9) BPH (benign prostatic hyperplasia) SNOMED Code(s): 372396905 Code(s): N40.0 - BENIGN PROSTATIC HYPERPLASIA WITHOUT LOWER URINRY TRACT SYMP Status: Chronic Current Visit: Yes Qualifiers: Lower urinary tract symptom detail: unspecified (10) WAQAR on CPAP SNOMED Code(s): 24106542 Code(s): G47.33 - OBSTRUCTIVE SLEEP APNEA (ADULT) (PEDIATRIC); Z99.89 - DEPENDENCE ON OTHER ENABLING MACHINES AND DEVICES Status: Chronic Current Visit: Yes (11) Hx of total knee arthroplasty SNOMED Code(s): 8930615651383, 8039523884469 Code(s): Z96.659 - PRESENCE OF UNSPECIFIED ARTIFICIAL KNEE JOINT Status: Chronic Current Visit: Yes Qualifiers: Laterality: left Qualified Code(s): Z96.652 - Presence of left artificial knee joint (12) Obesity SNOMED Code(s): 280478153, 835212604 Code(s): E66.9 - OBESITY, UNSPECIFIED Status: Chronic Current Visit: Yes (13) Hx of CABG SNOMED Code(s): 124287212, 105647504 Code(s): Z95.1 - PRESENCE OF AORTOCORONARY BYPASS GRAFT Status: Chronic Current Visit: Yes - Problem List Review Problem List Initiated/Reviewed/Updated: Yes - My Orders Last 24 Hours: My Active Orders 09/16/17 08:00 Furosemide [Lasix] 40 mg IVPUSH BIDDIURETIC 09/16/17 09:00 Aspirin 81 mg PO DAILY Cetirizine [ZyrTEC] 10 mg PO DAILY Finasteride [Proscar] 5 mg PO DAILY Patient's Own Medication [Ptom] 1 each PO DAILY Potassium Chloride [Klor-Con M20] 40 meq PO BID 09/18/17 05:11 BASIC METABOLIC PANEL,BMP [CHEM] AM CBC WITH AUTO DIFF [HEME] AM INR,PT,PROTHROMBIN TIME [COAG] AM MAGNESIUM [CHEM] AM 09/19/17 05:11 INR,PT,PROTHROMBIN TIME [COAG] AM MAGNESIUM [CHEM] AM - Plan Plan:: This 82 year old male admitted with suspected CHF exacerbation with hypoxia and dyspnea. 1. CHF exacerbation: Continues to improve.Dr Robertson will arrange outpatient ECHO and stress test. Continue Lasix 40 mg IV BID. Diureses 4900 since yesterday. Is down approximatel 16 lbs since admission. Continue Daily weights strict I/O. Heart healthy, 2 gm low Na diet with 1.5 L FR. Monitor on telemetry. Elevate extremities and place compression stockings. 2. Paroxysmal Afib: Asymptomatic. HR elevates with activity. May be secondary to CHF, but new diagnoses. Metoprolol Tartrate increased to 75mg TID. Remains in rate controlled afib. CHADS VASC 5, does need anticoagulation. Was started on Lovenox and Coumadin last evening. Will keep patient on Coumadin, due to weight above 120 kg. Patient and family were educated on this and they are ok with this I spoke with Daughter Tali this morning at length. She was updated on follow up treatment plan and the need for continued diuresis over next couple days with expected discharge Wednesday. She will be here tomorrow and brother(son of Luis Eduardo)Jonathan will be here today. TO reach Tali- [phone]. 3. HTN: Stable. Will monitor with diuresis. Continue Lisinopril 40 mg BID. Triamterene/HCTZ on hold per Dr Robertson. 4.CAD: Continue ASA and statin. Lipid panel obtained at [facility] on September 13. Well controlled. 5. BPH: Stable. Continue Finasteride and Oxybutynin 6. R leg wounds: No cellulitis noted. PT recommended Aquacel Ag Extra to each wound change PRN for soiling and encouraged edema reduction to help with wound healing. VTE prophylaxis: Lovenox and Coumadin started Dispo: 2 days pending improvement.
--- NOTE | 2017-09-17 08:12 | PCM.PN ---
- General Info Date of Service: 09/17/17 Admission Dx/Problem (Free Text): This is an 82-year-old male who has a history of coronary artery disease, coronary artery bypass graft, hypertension, former smoker new onset afib with decompensated HF Subjective Update: He is off oxygen this morning, he walked in his room, he felt his breathing back to normal, good diuresis. Functional Status: Reports: Pain Controlled - Review of Systems General: Reports: No Symptoms HEENT: Reports: No Symptoms Pulmonary: Reports: Shortness of Breath Cardiovascular: Reports: No Symptoms Gastrointestinal: Reports: No Symptoms Genitourinary: Reports: No Symptoms Musculoskeletal: Reports: No Symptoms Skin: Reports: No Symptoms Neurological: Reports: No Symptoms Psychiatric: Reports: No Symptoms - Patient Data Vitals - Most Recent: Last Vital Signs Temp 37.2 C 09/17/17 04:00 Pulse 96 09/17/17 08:00 Resp 20 09/17/17 04:00 BP 142/87 H 09/17/17 08:00 Pulse Ox 90 L 09/17/17 04:00 Weight - Most Recent: 148.325 kg I&O - Last 24 Hours: Intake & Output 09/16/17 09/17/17 09/17/17 22:59 06:59 14:59 Intake Total 750 750 Output Total 4200 2200 Balance -3450 -1450 Lab Results Last 24 Hours: Laboratory Results - last 24 hr 09/16/17 09/17/17 09/17/17 Range/Units 05:15 04:55 04:55 WBC 5.00 (4.0-11.0) K/uL RBC 4.15 L (4.50-5.90) M/uL Hgb 11.9 L (13.0-17.0) g/dL Hct 37.5 L (38.0-50.0) % MCV 90.4 (80.0-98.0) fL MCH 28.7 (27.0-32.0) pg MCHC 31.7 (31.0-37.0) g/dL RDW Std Deviation 48.4 (28.0-62.0) fl RDW Coeff of [place] 15 (11.0-15.0) % Plt Count 163 (150-400) K/uL MPV 9.70 (7.40-12.00) fL Neut % (Auto) 60.6 (48.0-80.0) % Lymph % (Auto) 27.8 (16.0-40.0) % [place] % (Auto) 7.6 (0.0-15.0) % Eos % (Auto) 3.6 (0.0-7.0) % Baso % (Auto) 0.4 (0.0-1.5) % Neut # (Auto) 3.0 (1.4-5.7) K/uL Lymph # (Auto) 1.4 (0.6-2.4) K/uL [place] # (Auto) 0.4 (0.0-0.8) K/uL Eos # (Auto) 0.2 (0.0-0.7) K/uL Baso # (Auto) 0.0 (0.0-0.1) K/uL Nucleated RBC % 0.0 /100WBC Nucleated RBCs # 0 K/uL INR Sodium 142 (136-148) mmol/L Potassium 3.7 (3.5-5.1) mmol/L Chloride 106 (98-107) mmol/L Carbon Dioxide 35.1 H (21.0-32.0) mmol/L BUN 29 H (7.0-18.0) mg/dL Creatinine 1.5 H (0.8-1.3) mg/dL Est Cr Clr Drug Dosing 45.67 mL/min Estimated GFR (MDRD) 45.0 ml/min Glucose 126 H (74-106) mg/dL Calcium 9.2 (8.5-10.1) mg/dL Magnesium 1.6 2.0 (1.5-2.0) mg/dL 09/17/17 Range/Units 04:55 WBC (4.0-11.0) K/uL RBC (4.50-5.90) M/uL Hgb (13.0-17.0) g/dL Hct (38.0-50.0) % MCV (80.0-98.0) fL MCH (27.0-32.0) pg MCHC (31.0-37.0) g/dL RDW Std Deviation (28.0-62.0) fl RDW Coeff of [place] (11.0-15.0) % Plt Count (150-400) K/uL MPV (7.40-12.00) fL Neut % (Auto) (48.0-80.0) % Lymph % (Auto) (16.0-40.0) % [place] % (Auto) (0.0-15.0) % Eos % (Auto) (0.0-7.0) % Baso % (Auto) (0.0-1.5) % Neut # (Auto) (1.4-5.7) K/uL Lymph # (Auto) (0.6-2.4) K/uL [place] # (Auto) (0.0-0.8) K/uL Eos # (Auto) (0.0-0.7) K/uL Baso # (Auto) (0.0-0.1) K/uL Nucleated RBC % /100WBC Nucleated RBCs # K/uL INR 1.20 Sodium (136-148) mmol/L Potassium (3.5-5.1) mmol/L Chloride (98-107) mmol/L Carbon Dioxide (21.0-32.0) mmol/L BUN (7.0-18.0) mg/dL Creatinine (0.8-1.3) mg/dL Est Cr Clr Drug Dosing mL/min Estimated GFR (MDRD) ml/min Glucose (74-106) mg/dL Calcium (8.5-10.1) mg/dL Magnesium (1.5-2.0) mg/dL Med Orders - Current: Current Medications Acetaminophen (Tylenol) 650 mg PO Q4H PRN PRN Reason: Pain (mild 1-3) Aspirin (Aspirin) 81 mg PO DAILY [facility] Last Admin: 09/17/17 08:01 Dose: 81 mg Cetirizine HCl (Zyrtec) 10 mg PO DAILY [facility] Last Admin: 09/17/17 08:00 Dose: 10 mg Enoxaparin Sodium (Lovenox) 150 mg SUBCUT Q12H [facility] Last Admin: 09/16/17 21:54 Dose: 150 mg Finasteride (Proscar) 5 mg PO DAILY [facility] Last Admin: 09/17/17 08:00 Dose: 5 mg Furosemide (Lasix) 40 mg IVPUSH BIDDIURETIC [facility] Last Admin: 09/17/17 07:56 Dose: 40 mg Lisinopril (Prinivil) 40 mg PO BID [facility] Last Admin: 09/17/17 08:00 Dose: 40 mg Metoprolol Tartrate (Lopressor) 75 mg PO TID [facility] Last Admin: 09/17/17 08:00 Dose: 75 mg Ondansetron HCl (Zofran Odt) 4 mg PO Q4H PRN PRN Reason: nausea, able to take PO Oxybutynin Chloride (Oxybutynin) 5 mg PO TID [facility] Last Admin: 09/17/17 05:36 Dose: 5 mg Lutein [Lutein] 10 (Mg) 1 each PO DAILY [facility] Last Admin: 09/17/17 08:02 Dose: Not Given Alfuzosin Hcl 10 Mg 1 each PO DAILY [facility] Last Admin: 09/17/17 08:01 Dose: 1 each Ammonium Lactate 3 (Gm) 3 each TOP BID PRN PRN Reason: dry skin Garlic [Garlic Oil] (500 Mg) 1 each PO DAILY [facility] Last Admin: 09/17/17 08:01 Dose: Not Given Gluc Hcl/Csa/Rowdy Hy /Hyalur Ac [ Glucosamine Chondroitin] 1 each PO DAILY [facility] Last Admin: 09/17/17 08:01 Dose: Not Given Potassium Chloride (Klor-Con M20) 40 meq PO BID [facility] Last Admin: 09/17/17 08:00 Dose: 40 meq Simvastatin (Zocor) 80 mg PO BEDTIME [facility] Last Admin: 09/16/17 20:43 Dose: 80 mg Sodium Chloride (Saline Flush) 2.5 ml FLUSH ASDIRECTED PRN PRN Reason: Keep Vein Open Warfarin Sodium (Coumadin) 10 mg PO 09/17/17@1400 [facility] Stop: 09/17/17 14:01 Warfarin Sodium (Coumadin Ask) 1 each PO DAILY@1400 [facility] Discontinued Medications Diltiazem HCl (Diltiazem) 20 mg IVPUSH ONETIME ONE Stop: 09/15/17 19:56 Last Admin: 09/15/17 20:18 Dose: 20 mg Furosemide (Lasix) 20 mg IVPUSH ONETIME ONE Stop: 09/15/17 13:39 Last Admin: 09/15/17 14:35 Dose: Not Given Furosemide (Lasix) 20 mg IVPUSH ONETIME ONE Stop: 09/15/17 14:31 Last Admin: 09/15/17 14:35 Dose: 20 mg Furosemide (Lasix) 40 mg IVPUSH NOW ONE Stop: 09/15/17 19:01 Last Admin: 09/15/17 18:47 Dose: 40 mg Heparin Sodium (Porcine) (Heparin Sodium) 5,000 units SUBCUT Q12H [facility] Last Admin: 09/15/17 18:47 Dose: 5,000 units Magnesium Sulfate 2 gm/ Premix 50 mls @ 50 mls/hr IV ONETIME ONE Stop: 09/16/17 13:23 Last Admin: 09/16/17 13:14 Dose: 50 mls/hr Metoprolol Tartrate (Lopressor) 50 mg PO BID [facility] Last Admin: 09/16/17 08:14 Dose: Not Given Metoprolol Tartrate (Lopressor) 75 mg PO BID [facility] Stop: 09/17/17 09:00 Last Admin: 09/16/17 20:47 Dose: 75 mg Tobramycin/Dexamethasone (Tobradex Ophth Oint) 3.5 gm EYEBOTH BID [facility] Triamterene/HCTZ (Maxzide 50-75 Mg) 1 each PO DAILY [facility] Last Admin: 09/16/17 08:14 Dose: 1 each Warfarin Sodium (Coumadin) 5 mg PO DAILY [facility] Stop: 09/15/17 20:01 Last Admin: 09/16/17 07:47 Dose: Not Given Warfarin Sodium (Coumadin) 5 mg PO ONETIME ONE Stop: 09/15/17 20:16 Last Admin: 09/15/17 20:39 Dose: 5 mg Warfarin Sodium (Coumadin Ask) 1 each PO ONETIME ONE Stop: 09/16/17 13:41 Last Admin: 09/16/17 14:55 Dose: Not Given Warfarin Sodium (Coumadin) 5 mg PO DAILY@1400 [facility] Last Admin: 09/16/17 15:18 Dose: 5 mg - Exam General: Alert, Oriented HEENT: Pupils Equal, Pupils Reactive Neck: Supple, JVD Lungs: Crackles Cardiovascular: Irregular Rhythm GI/Abdominal Exam: Normal Bowel Sounds (Male) Exam: No Hernia, Normal Inspection Back Exam: Normal Inspection Extremities: Normal Inspection EKG INTERPRETATION Rhythm: A-Fib - Problem List Review Problem List Initiated/Reviewed/Updated: Yes - My Orders Last 24 Hours: My Active Orders 09/17/17 09:00 Metoprolol Tartrate [Lopressor] 75 mg PO TID - Plan Plan:: 82M who has a history of coronary artery disease, coronary artery bypass graft, hypertension, former smoker 1. decompesated CHF: echo is poor quality probably grossly preserved LVEF< however I will repeat it as outpatient. Recommended to continue diuresing. - continue lasix 40 IV BID 2. new onset afib, his HR was fast when he was up and moving, I will increase metoprolol to 75 TID, continue coumadin 3. 1cm left lung nodule: repeat chest CT in 3 months (given history of smoker)
[2017-09-17] MEDS: Enoxaparin 150 MG/1 ML Syringe SUBCUT SCH ×2 (10:25→22:13)
[2017-09-17] MEDS ORDERED: Warfarin 10 MG Tab PO SCH (14:00)
--- NOTE | 2017-09-17 20:03 | ECHO ---
The echocardiogram report can be seen in this patient's EMR (Electronic Medical Record) in the Reports section. The echocardiogram has also been scanned into PACS and can be seen there. RENÉE
[2017-09-17] MEDS: Simvastatin 40 MG Tab PO SCH (20:54)
[2017-09-18] MEDS: Metoprolol Tartrate 25 MG Tab PO SCH ×3 (05:28→22:09)
[2017-09-18] MEDS: Oxybutynin 5 MG Tab PO SCH ×3 (05:28→22:09)
[2017-09-18] MEDS: Furosemide 40 MG/4 ML VIAL IVPUSH SCH ×2 (07:35→13:55)
[2017-09-18] MEDS: Potassium Chloride 20 MEQ Tab.ER PO SCH ×2 (08:00→20:46)
[2017-09-18] MEDS: Finasteride 5 MG Tab PO SCH (08:00)
[2017-09-18] MEDS: Lisinopril 10 MG Tab PO SCH ×2 (08:00→20:46)
[2017-09-18] MEDS: Aspirin 81 MG Tab.Chew PO SCH (08:00)
[2017-09-18] MEDS: Cetirizine 10 MG Tab PO SCH (08:00)
[2017-09-18] MEDS: [UNRECOGNIZED DRUG - OTHER] PO SCH ×2 (08:01→08:02)
[2017-09-18] MEDS: Alfuzosin Hcl 10 MG PO SCH ×2 (08:01→09:09)
[2017-09-18] MEDS: GARLIC 500 MG PO SCH (08:02)
[2017-09-18] MEDS: LUTEIN 10 MG PO SCH (08:03)
[2017-09-18] MEDS: Enoxaparin 150 MG/1 ML Syringe SUBCUT SCH ×2 (09:38→22:08)
--- NOTE | 2017-09-18 12:19 | PCM.PN ---
- General Info Date of Service: 09/18/17 Admission Dx/Problem (Free Text): Admission Diagnosis/Problem Admission Diagnosis/Problem Congestive heart failure Subjective Update: Patient out of bed to chair , comfortable at room air , saturating 93% at room air. Diuresed 2100 cc today - Review of Systems General: Reports: No Symptoms HEENT: Reports: No Symptoms Pulmonary: Reports: No Symptoms Cardiovascular: Reports: Dyspnea on Exertion, Orthopnea Gastrointestinal: Reports: No Symptoms Genitourinary: Reports: No Symptoms Musculoskeletal: Reports: No Symptoms Skin: Reports: Other (skin ulcer clean rt leg) Neurological: Reports: No Symptoms Psychiatric: Reports: No Symptoms - Patient Data Vitals - Most Recent: Last Vital Signs Temp 97.2 F 09/18/17 11:41 Pulse 74 09/18/17 11:41 Resp 19 09/18/17 11:41 BP 117/67 09/18/17 11:41 Pulse Ox 93 L 09/18/17 11:41 Weight - Most Recent: 308 lb 12.8 oz I&O - Last 24 Hours: Intake & Output 09/17/17 09/18/17 09/18/17 22:59 06:59 14:59 Intake Total 750 370 Output Total 3479 1420 Balance -2725 -1050 Lab Results Last 24 Hours: Laboratory Results - last 24 hr 09/18/17 09/18/17 09/18/17 Range/Units 05:44 05:44 05:44 WBC 5.15 (4.0-11.0) K/uL RBC 4.43 L (4.50-5.90) M/uL Hgb 12.9 L (13.0-17.0) g/dL Hct 39.8 (38.0-50.0) % MCV 89.8 (80.0-98.0) fL MCH 29.1 (27.0-32.0) pg MCHC 32.4 (31.0-37.0) g/dL RDW Std Deviation 47.7 (28.0-62.0) fl RDW Coeff of Yan[place] 15 (11.0-15.0) % Plt Count 181 (150-400) K/uL MPV 10.10 (7.40-12.00) fL Neut % (Auto) 59.6 (48.0-80.0) % Lymph % (Auto) 29.1 (16.0-40.0) % [place] % (Auto) 7.8 (0.0-15.0) % Eos % (Auto) 2.9 (0.0-7.0) % Baso % (Auto) 0.6 (0.0-1.5) % Neut # (Auto) 3.1 (1.4-5.7) K/uL Lymph # (Auto) 1.5 (0.6-2.4) K/uL [place] # (Auto) 0.4 (0.0-0.8) K/uL Eos # (Auto) 0.2 (0.0-0.7) K/uL Baso # (Auto) 0.0 (0.0-0.1) K/uL Nucleated RBC % 0.0 /100WBC Nucleated RBCs # 0 K/uL INR 1.24 Sodium 143 (136-148) mmol/L Potassium 3.9 (3.5-5.1) mmol/L Chloride 104 (98-107) mmol/L Carbon Dioxide 35.5 H (21.0-32.0) mmol/L BUN 26 H (7.0-18.0) mg/dL Creatinine 1.5 H (0.8-1.3) mg/dL Est Cr Clr Drug Dosing 45.67 mL/min Estimated GFR (MDRD) 45.0 ml/min Glucose 115 H (74-106) mg/dL Calcium 9.5 (8.5-10.1) mg/dL Magnesium 1.8 (1.5-2.0) mg/dL Med Orders - Current: Current Medications Acetaminophen (Tylenol) 650 mg PO Q4H PRN PRN Reason: Pain (mild 1-3) Aspirin (Aspirin) 81 mg PO DAILY [facility] Last Admin: 09/18/17 08:00 Dose: 81 mg Cetirizine HCl (Zyrtec) 10 mg PO DAILY [facility] Last Admin: 09/18/17 08:00 Dose: 10 mg Enoxaparin Sodium (Lovenox) 150 mg SUBCUT Q12H [facility] Last Admin: 09/18/17 09:38 Dose: 150 mg Finasteride (Proscar) 5 mg PO DAILY [facility] Last Admin: 09/18/17 08:00 Dose: 5 mg Furosemide (Lasix) 40 mg IVPUSH BIDDIURETIC [facility] Last Admin: 09/18/17 07:35 Dose: 40 mg Lisinopril (Prinivil) 40 mg PO BID [facility] Last Admin: 09/18/17 08:00 Dose: 40 mg Metoprolol Tartrate (Lopressor) 75 mg PO TID [facility] Last Admin: 09/18/17 05:28 Dose: 75 mg Multivitamins/Minerals (Prosight) 1 tab PO DAILY [facility] Ondansetron HCl (Zofran Odt) 4 mg PO Q4H PRN PRN Reason: nausea, able to take PO Oxybutynin Chloride (Oxybutynin) 5 mg PO TID [facility] Last Admin: 09/18/17 05:28 Dose: 5 mg Alfuzosin Hcl 10 Mg 1 each PO DAILY [facility] Last Admin: 09/18/17 09:09 Dose: 1 each Ammonium Lactate 3 (Gm) 3 each TOP BID PRN PRN Reason: dry skin Potassium Chloride (Klor-Con M20) 40 meq PO BID [facility] Last Admin: 09/18/17 08:00 Dose: 40 meq Simvastatin (Zocor) 80 mg PO BEDTIME [facility] Last Admin: 09/17/17 20:54 Dose: 80 mg Sodium Chloride (Saline Flush) 2.5 ml FLUSH ASDIRECTED PRN PRN Reason: Keep Vein Open Warfarin Sodium (Coumadin Ask) 1 each PO DAILY@1400 [facility] Last Admin: 09/17/17 13:25 Dose: Not Given Warfarin Sodium (Coumadin) 10 mg PO 09/18/17@1400 [facility] Stop: 09/18/17 14:01 Discontinued Medications Diltiazem HCl (Diltiazem) 20 mg IVPUSH ONETIME ONE Stop: 09/15/17 19:56 Last Admin: 09/15/17 20:18 Dose: 20 mg Furosemide (Lasix) 20 mg IVPUSH ONETIME ONE Stop: 09/15/17 13:39 Last Admin: 09/15/17 14:35 Dose: Not Given Furosemide (Lasix) 20 mg IVPUSH ONETIME ONE Stop: 09/15/17 14:31 Last Admin: 09/15/17 14:35 Dose: 20 mg Furosemide (Lasix) 40 mg IVPUSH NOW ONE Stop: 09/15/17 19:01 Last Admin: 09/15/17 18:47 Dose: 40 mg Heparin Sodium (Porcine) (Heparin Sodium) 5,000 units SUBCUT Q12H [facility] Last Admin: 09/15/17 18:47 Dose: 5,000 units Magnesium Sulfate 2 gm/ Premix 50 mls @ 50 mls/hr IV ONETIME ONE Stop: 09/16/17 13:23 Last Admin: 09/16/17 13:14 Dose: 50 mls/hr Metoprolol Tartrate (Lopressor) 50 mg PO BID [facility] Last Admin: 09/16/17 08:14 Dose: Not Given Metoprolol Tartrate (Lopressor) 75 mg PO BID [facility] Stop: 09/17/17 09:00 Last Admin: 09/16/17 20:47 Dose: 75 mg Lutein [Lutein] 10 (Mg) 1 each PO DAILY [facility] Last Admin: 09/18/17 08:03 Dose: Not Given Garlic [Garlic Oil] (500 Mg) 1 each PO DAILY [facility] Last Admin: 09/18/17 08:02 Dose: Not Given Gluc Hcl/Csa/Rowdy Hy /Hyalur Ac [ Glucosamine Chondroitin] 1 each PO DAILY [facility] Last Admin: 09/18/17 08:02 Dose: Not Given Tobramycin/Dexamethasone (Tobradex Ophth Oint) 3.5 gm EYEBOTH BID [facility] Triamterene/HCTZ (Maxzide 50-75 Mg) 1 each PO DAILY [facility] Last Admin: 09/16/17 08:14 Dose: 1 each Warfarin Sodium (Coumadin) 5 mg PO DAILY [facility] Stop: 09/15/17 20:01 Last Admin: 09/16/17 07:47 Dose: Not Given Warfarin Sodium (Coumadin) 5 mg PO ONETIME ONE Stop: 09/15/17 20:16 Last Admin: 09/15/17 20:39 Dose: 5 mg Warfarin Sodium (Coumadin Ask) 1 each PO ONETIME ONE Stop: 09/16/17 13:41 Last Admin: 09/16/17 14:55 Dose: Not Given Warfarin Sodium (Coumadin) 5 mg PO DAILY@1400 [facility] Last Admin: 09/16/17 15:18 Dose: 5 mg Warfarin Sodium (Coumadin) 10 mg PO 09/17/17@1400 [facility] Stop: 09/17/17 14:01 Last Admin: 09/17/17 13:40 Dose: 10 mg - Exam General: Alert, Oriented, Cooperative, No Acute Distress HEENT: Pupils Equal, Pupils Reactive, EOMI Neck: Supple, Trachea Midline, No JVD Lungs: Clear to Auscultation, Normal Respiratory Effort Cardiovascular: Irregular Rhythm GI/Abdominal Exam: Normal Bowel Sounds, Soft, Non-Tender, No Organomegaly, No Distention, No Abnormal Bruit, No Mass Back Exam: Normal Inspection Extremities: Pedal Edema Peripheral Pulses: 0: Popliteal (L) Skin: Warm, Dry, Intact Wound/Incisions: Other (compression stockings on) Neurological: No New Focal Deficit Psy/Mental Status: Alert, Agitated - Problem List Review Problem List Initiated/Reviewed/Updated: Yes - My Orders Last 24 Hours: My Active Orders 09/17/17 14:00 Warfarin Dosing [Coumadin Ask] 1 each PO DAILY@1400 09/18/17 14:00 Warfarin [Coumadin] 10 mg PO 09/18/17@1400 - Plan Plan:: Assessment and plan 1. CHF exacerbation: echo shows Ef40-45% , had a negative balance of 2100 cc over the past 24h Continue Daily weights strict I/O. Heart healthy, 2 gm low Na diet with 1.5 L FR. Monitor on telemetry. Elevate extremities and place compression stockings. 2. Paroxysmal Afib: Asymptomatic. HR elevates with activity. May be secondary to CHF, but new diagnoses. Metoprolol Tartrate increased to 75mg TID. Remains in rate controlled afib. CHADS VASC 5, does need anticoagulation. Was started on Lovenox and Coumadin last evening. Will keep patient on Coumadin, due to weight above 120 kg. Patient and family were educated on this and they are ok with this I spoke with Daughter Tali this morning at length. She was updated on follow up treatment plan and the need for continued diuresis over next couple days with expected discharge Wednesday. She will be here tomorrow and brother(son of Luis Eduardo), Jonathan will be here today. TO reach Tali- [phone]. 3. HTN: Stable. Will monitor with diuresis. Continue Lisinopril 40 mg BID. Triamterene/HCTZ on hold per Dr Robertson. 4.CAD: Continue ASA and statin. Lipid panel obtained at [facility] on September 13. Well controlled. 5. BPH: Stable. Continue Finasteride and Oxybutynin 6. R leg wounds: No cellulitis noted. PT recommended Aquacel Ag Extra to each wound change PRN for soiling and encouraged edema reduction to help with wound healing. VTE prophylaxis: Lovenox and Coumadin started
[2017-09-18] MEDS ORDERED: Warfarin 10 MG Tab PO SCH (14:00)
[2017-09-18] MEDS: Simvastatin 40 MG Tab PO SCH (20:46)
[2017-09-19] MEDS: Metoprolol Tartrate 25 MG Tab PO SCH ×2 (05:16→12:59)
[2017-09-19] MEDS: Oxybutynin 5 MG Tab PO SCH ×2 (05:16→13:00)
[2017-09-19] MEDS: Finasteride 5 MG Tab PO SCH (08:37)
[2017-09-19] MEDS: Cetirizine 10 MG Tab PO SCH (08:37)
[2017-09-19] MEDS: Potassium Chloride 20 MEQ Tab.ER PO SCH (08:37)
[2017-09-19] MEDS: Furosemide 40 MG/4 ML VIAL IVPUSH SCH ×2 (08:37→12:59)
[2017-09-19] MEDS: Aspirin 81 MG Tab.Chew PO SCH (08:37)
[2017-09-19] MEDS: Lisinopril 10 MG Tab PO SCH (08:38)
[2017-09-19] MEDS ORDERED: LUTEIN 10 MG PO SCH (09:00)
[2017-09-19] MEDS: Enoxaparin 150 MG/1 ML Syringe SUBCUT SCH (09:35)
[2017-09-19] MEDS: Alfuzosin Hcl 10 MG PO SCH (09:35)
[2017-09-19 12:27] VITALS: BP 125/87
--- NOTE | 2017-09-19 12:27 | PCM.DCSUM1 ---
Discharge Summary - Discharge Data Discharge Date: 09/19/17 Discharge Disposition: Home, Self-Care 01 Condition: Good - Patient Summary/Data Consults: Consultations 09/15/17 16:40 Consult to Physician [CONS] Routine 09/15/17 17:10 Consult to Physical Therapy [PT Evaluation and Treatment] [CONS] Routine Hospital Course: 82 yo male with pmh of CAD, CABG, HTN, and former smoker who was admitted with decompensated heart failure. He presented with symptoms of shortness of breath , increased weight and lower extremity edema. Echocardiogram was of poor quality with probably grossly preserved LVEF. He was diuresied with lasix with improvement of his dyspnea. He did develop paroxysmal atrial fibrillation with rapid ventricular response. His metoprolol was increased to 75mg TID and he was started on coumadin. Dr. Ontiveros was consulted during his hospital stay. Today he is requesting discharge. He was discharged home to follow up with Dr. Ontiveros and the [place] clinic. He was informed of his CT chest resultres and need to follow up with repeat CT scan in three months given one centimeter lung nodule. - Patient Instructions Diet: Heart Healthy Diet, Low Sodium Other/Special Instructions: Repeat CT scan of chest in three months to follow up lung nodule. - Discharge Plan Prescriptions/Med Rec: Furosemide [Lasix] 40 mg PO DAILY #30 tablet Metoprolol Tartrate [Lopressor] 75 mg PO TID #60 tablet Potassium Chloride [Klor-Con M20] 20 meq PO DAILY #14 tab.er Warfarin [Coumadin] 5 mg PO DAILY #14 tab Home Medications: Home Meds Finasteride [Proscar] 5 mg PO DAILY 12/27/13 [History] Garlic [Garlic Oil] 500 mg PO DAILY 12/27/13 [History] Gluc HCl/Csa/Rowdy Hy/Hyalur Ac [Glucosamine Chondroitin] 1 tab PO DAILY [History] Lisinopril 40 mg PO BID 12/27/13 [History] Lutein 10 mg PO DAILY 12/27/13 [History] Alfuzosin HCl [Alfuzosin HCl ER] 10 mg PO DAILY 09/08/16 [History] Oxybutynin Chloride 5 mg PO TID 09/08/16 [History] Ammonium Lactate [Amlactin 12% Lotion] 3 gm TP BID PRN 09/15/17 [History] Dexamethasone/Tobramycin [Tobradex Ophth Oint] 1 applic OP BID 09/15/17 [History ] Aspirin 81 mg PO DAILY tab.chew 09/19/17 [Rx] Cetirizine [ZyrTEC] 10 mg PO DAILY tablet 09/19/17 [Rx] Furosemide [Lasix] 40 mg PO DAILY #30 tablet 09/19/17 [Rx] Metoprolol Tartrate [Lopressor] 75 mg PO TID #60 tablet 09/19/17 [Rx] Potassium Chloride [Klor-Con M20] 20 meq PO DAILY #14 tab.er 09/19/17 [Rx] Simvastatin [Zocor] 80 mg PO BEDTIME #30 09/19/17 [Rx] Warfarin [Coumadin] 5 mg PO DAILY #14 tab 09/19/17 [Rx] Patient Handouts: Heart Failure, [id number] Referrals: Yesy Robertson MD [Physician] - 09/28/17 11:30 am Winnie Crawford NP [Ordering Only Provider] - 10/04/17 1:00 pm (Is placed on a cancellation list for a possible earlier date to be seen.) - Patient Data Vitals - Most Recent: Last Vital Signs Temp 36.1 C 09/19/17 07:36 Pulse 64 09/19/17 07:36 Resp 18 09/19/17 07:36 BP 149/72 H 09/19/17 08:38 Pulse Ox 95 09/19/17 07:36 Weight - Most Recent: 138.3 kg I&O - Last 24 hours: Intake & Output 09/18/17 09/19/17 09/19/17 22:59 06:59 14:59 Intake Total 750 590 Output Total 5190 1425 Balance -1430 -835 Lab Results - Last 24 hrs: Laboratory Results - last 24 hr 09/19/17 09/19/17 09/19/17 Range/Units 05:15 05:15 05:18 WBC 5.21 (4.0-11.0) K/uL RBC 4.37 L (4.50-5.90) M/uL Hgb 12.7 L (13.0-17.0) g/dL Hct 39.3 (38.0-50.0) % MCV 89.9 (80.0-98.0) fL MCH 29.1 (27.0-32.0) pg MCHC 32.3 (31.0-37.0) g/dL RDW Std Deviation 48.0 (28.0-62.0) fl RDW Coeff of Yanick 15 (11.0-15.0) % Plt Count 184 (150-400) K/uL MPV 10.30 (7.40-12.00) fL Neut % (Auto) 61.6 (48.0-80.0) % Lymph % (Auto) 28.0 (16.0-40.0) % Stokes % (Auto) 7.5 (0.0-15.0) % Eos % (Auto) 2.5 (0.0-7.0) % Baso % (Auto) 0.4 (0.0-1.5) % Neut # (Auto) 3.2 (1.4-5.7) K/uL Lymph # (Auto) 1.5 (0.6-2.4) K/uL Stokes # (Auto) 0.4 (0.0-0.8) K/uL Eos # (Auto) 0.1 (0.0-0.7) K/uL Baso # (Auto) 0.0 (0.0-0.1) K/uL Nucleated RBC % 0.0 /100WBC Nucleated RBCs # 0 K/uL INR 1.46 Sodium (136-148) mmol/L Potassium (3.5-5.1) mmol/L Chloride (98-107) mmol/L Carbon Dioxide (21.0-32.0) mmol/L BUN (7.0-18.0) mg/dL Creatinine (0.8-1.3) mg/dL Est Cr Clr Drug Dosing mL/min Estimated GFR (MDRD) ml/min Glucose (74-106) mg/dL Calcium (8.5-10.1) mg/dL Magnesium 1.9 (1.5-2.0) mg/dL 09/19/17 Range/Units 05:18 WBC (4.0-11.0) K/uL RBC (4.50-5.90) M/uL Hgb (13.0-17.0) g/dL Hct (38.0-50.0) % MCV (80.0-98.0) fL MCH (27.0-32.0) pg MCHC (31.0-37.0) g/dL RDW Std Deviation (28.0-62.0) fl RDW Coeff of Yanick (11.0-15.0) % Plt Count (150-400) K/uL MPV (7.40-12.00) fL Neut % (Auto) (48.0-80.0) % Lymph % (Auto) (16.0-40.0) % Stokes % (Auto) (0.0-15.0) % Eos % (Auto) (0.0-7.0) % Baso % (Auto) (0.0-1.5) % Neut # (Auto) (1.4-5.7) K/uL Lymph # (Auto) (0.6-2.4) K/uL Stokes # (Auto) (0.0-0.8) K/uL Eos # (Auto) (0.0-0.7) K/uL Baso # (Auto) (0.0-0.1) K/uL Nucleated RBC % /100WBC Nucleated RBCs # K/uL INR Sodium 143 (136-148) mmol/L Potassium 4.1 (3.5-5.1) mmol/L Chloride 104 (98-107) mmol/L Carbon Dioxide 32.6 H (21.0-32.0) mmol/L BUN 28 H (7.0-18.0) mg/dL Creatinine 1.6 H (0.8-1.3) mg/dL Est Cr Clr Drug Dosing 42.81 mL/min Estimated GFR (MDRD) 41.8 ml/min Glucose 114 H (74-106) mg/dL Calcium 9.5 (8.5-10.1) mg/dL Magnesium (1.5-2.0) mg/dL Med Orders - Current: Current Medications Acetaminophen (Tylenol) 650 mg PO Q4H PRN PRN Reason: Pain (mild 1-3) Aspirin (Aspirin) 81 mg PO DAILY [facility] Last Admin: 09/19/17 08:37 Dose: 81 mg Cetirizine HCl (Zyrtec) 10 mg PO DAILY [facility] Last Admin: 09/19/17 08:37 Dose: 10 mg Enoxaparin Sodium (Lovenox) 150 mg SUBCUT Q12H [facility] Last Admin: 09/19/17 09:35 Dose: 150 mg Finasteride (Proscar) 5 mg PO DAILY [facility] Last Admin: 09/19/17 08:37 Dose: 5 mg Furosemide (Lasix) 40 mg IVPUSH BIDDIURETIC [facility] Last Admin: 09/19/17 08:37 Dose: 40 mg Lisinopril (Prinivil) 40 mg PO BID [facility] Last Admin: 09/19/17 08:38 Dose: 40 mg Metoprolol Tartrate (Lopressor) 75 mg PO TID [facility] Last Admin: 09/19/17 05:16 Dose: 75 mg Multivitamins/Minerals (Prosight) 1 tab PO DAILY [facility] Last Admin: 09/19/17 08:37 Dose: 1 tab Ondansetron HCl (Zofran Odt) 4 mg PO Q4H PRN PRN Reason: nausea, able to take PO Oxybutynin Chloride (Oxybutynin) 5 mg PO TID [facility] Last Admin: 09/19/17 05:16 Dose: 5 mg Alfuzosin Hcl 10 Mg 1 each PO DAILY [facility] Last Admin: 09/19/17 09:35 Dose: 1 each Ammonium Lactate 3 (Gm) 3 each TOP BID PRN PRN Reason: dry skin Potassium Chloride (Klor-Con M20) 40 meq PO BID [facility] Last Admin: 09/19/17 08:37 Dose: 40 meq Simvastatin (Zocor) 80 mg PO BEDTIME [facility] Last Admin: 09/18/17 20:46 Dose: 80 mg Sodium Chloride (Saline Flush) 2.5 ml FLUSH ASDIRECTED PRN PRN Reason: Keep Vein Open Warfarin Sodium (Coumadin Ask) 1 each PO DAILY@1400 [facility] Last Admin: 09/18/17 13:58 Dose: Not Given Warfarin Sodium (Coumadin) 10 mg PO 09/19/17@1400 [facility] Stop: 09/19/17 14:01 Discontinued Medications Diltiazem HCl (Diltiazem) 20 mg IVPUSH ONETIME ONE Stop: 09/15/17 19:56 Last Admin: 09/15/17 20:18 Dose: 20 mg Furosemide (Lasix) 20 mg IVPUSH ONETIME ONE Stop: 09/15/17 13:39 Last Admin: 09/15/17 14:35 Dose: Not Given Furosemide (Lasix) 20 mg IVPUSH ONETIME ONE Stop: 09/15/17 14:31 Last Admin: 09/15/17 14:35 Dose: 20 mg Furosemide (Lasix) 40 mg IVPUSH NOW ONE Stop: 09/15/17 19:01 Last Admin: 09/15/17 18:47 Dose: 40 mg Heparin Sodium (Porcine) (Heparin Sodium) 5,000 units SUBCUT Q12H [facility] Last Admin: 09/15/17 18:47 Dose: 5,000 units Magnesium Sulfate 2 gm/ Premix 50 mls @ 50 mls/hr IV ONETIME ONE Stop: 09/16/17 13:23 Last Admin: 09/16/17 13:14 Dose: 50 mls/hr Metoprolol Tartrate (Lopressor) 50 mg PO BID [facility] Last Admin: 09/16/17 08:14 Dose: Not Given Metoprolol Tartrate (Lopressor) 75 mg PO BID [facility] Stop: 09/17/17 09:00 Last Admin: 09/16/17 20:47 Dose: 75 mg Lutein [Lutein] 10 (Mg) 1 each PO DAILY [facility] Last Admin: 09/18/17 08:03 Dose: Not Given Garlic [Garlic Oil] (500 Mg) 1 each PO DAILY [facility] Last Admin: 09/18/17 08:02 Dose: Not Given Gluc Hcl/Csa/Rowdy Hy /Hyalur Ac [ Glucosamine Chondroitin] 1 each PO DAILY [facility] Last Admin: 09/18/17 08:02 Dose: Not Given Tobramycin/Dexamethasone (Tobradex Ophth Oint) 3.5 gm EYEBOTH BID [facility] Triamterene/HCTZ (Maxzide 50-75 Mg) 1 each PO DAILY [facility] Last Admin: 09/16/17 08:14 Dose: 1 each Warfarin Sodium (Coumadin) 5 mg PO DAILY [facility] Stop: 09/15/17 20:01 Last Admin: 09/16/17 07:47 Dose: Not Given Warfarin Sodium (Coumadin) 5 mg PO ONETIME ONE Stop: 09/15/17 20:16 Last Admin: 09/15/17 20:39 Dose: 5 mg Warfarin Sodium (Coumadin Ask) 1 each PO ONETIME ONE Stop: 09/16/17 13:41 Last Admin: 09/16/17 14:55 Dose: Not Given Warfarin Sodium (Coumadin) 5 mg PO DAILY@1400 [facility] Last Admin: 09/16/17 15:18 Dose: 5 mg Warfarin Sodium (Coumadin) 10 mg PO 09/17/17@1400 [facility] Stop: 09/17/17 14:01 Last Admin: 09/17/17 13:40 Dose: 10 mg Warfarin Sodium (Coumadin) 10 mg PO 09/18/17@1400 [facility] Stop: 09/18/17 14:01 Last Admin: 09/18/17 13:56 Dose: 10 mg
[2017-09-19] MEDS ORDERED: Warfarin 10 MG Tab PO SCH (14:00)
== END 2017-09-19 13:30 | disposition home or self-care (01) | DRG 293 ==
LOC: MW.ED 12:29 → MW.MS 14:37
PROVIDERS: ADMIT Internal Medicine; ATTEND Internal Medicine
DX: I50.30 Unspecified diastolic (congestive) heart failure (principal); I25.10 Atherosclerotic heart disease of native coronary artery without angina pectoris; I10 Essential (primary) hypertension; R91.8 Other nonspecific abnormal finding of lung field; I48.0 Paroxysmal atrial fibrillation; R09.02 Hypoxemia; Z68.35 Body mass index [BMI] 35.0-35.9, adult; I73.9 Peripheral vascular disease, unspecified; I65.21 Occlusion and stenosis of right carotid artery; N40.0 Benign prostatic hyperplasia without lower urinary tract symptoms; G47.33 Obstructive sleep apnea (adult) (pediatric); E66.9 Obesity, unspecified; Z87.891 Personal history of nicotine dependence; Z98.890 Other specified postprocedural states; Z96.652 Presence of left artificial knee joint; Z79.899 Other long term (current) drug therapy; Z95.1 Presence of aortocoronary bypass graft
CPT/HCPCS: 36415; 71045; 71045-26; 71250; 71250-26; 80048; 80053; 81001; 82150; 83690; 83735; 83880; 84484; 85025; 85610; 93005; 93306; 96374; 97161-GP; 99285-25; A9270-GY; J1644; J1650; J1940; J3475; J3490

== ENCOUNTER 2017-09-20 13:42 | Observation (INO) | payer MEDICARE, BC ==
[2017-09-20] MEDS ORDERED: Sodium Chloride 0.9% 10 ML Syringe FLUSH PRN (14:00)
[2017-09-20] MEDS ORDERED: Sodium Chloride 0.9% 2.5 ML Syringe FLUSH PRN (14:00)
--- NOTE | 2017-09-20 14:03 | EDM.PDOC ---
ED HPI GENERAL MEDICAL PROBLEM - General Chief Complaint: Cardiovascular Problem Stated Complaint: BP ISSUES Time Seen by Provider: 09/20/17 14:01 Source of Information: Reports: Patient History Limitations: Reports: No Limitations - History of Present Illness INITIAL COMMENTS - FREE TEXT/NARRATIVE: HISTORY AND PHYSICAL: []82-year-old gentleman who was discharged from the hospital started afternoon presents with low blood pressure today History of Present Illness: []He has not feeling quite well, states that his daughter is a hypochondriac and made him come in. Patient is generally seen through the [place] clinic. Review of Systems: As per history of present illness and below otherwise all systems reviewed and negative. Past medical history: As per history of present illness and as reviewed below otherwise noncontributory. Surgical history: As per history of present illness and as reviewed below otherwise noncontributory. Social history: No reported history of drug or alcohol abuse. Family history: As per history of present illness and as reviewed below otherwise noncontributory. Physical exam: HEENT: Atraumatic, normocehpalic, pupils reactive, negative for conjunctival pallor or scleral icterus, mucous membranes moist, throat clear, neck supple, nontender, trachea midline. Lungs: Clear to auscultation, breath sounds equal bilaterally, chest non tender. Heart: S1S2, regular, negative for clicks, rubs, or JVD. Abdomen: Soft, nondistended, nontender. Negative for masses or hepatossplenmegaly. Negative for costovertebral tenderness. Pelvis: Stable nontender. Genitourinary: Deferred. Rectal: Deferred Extremities: Atraumatic, negative for cords or calf pain. Neurovascular unremarkable. Neuro: Awake, alert, oriented. Cranial nerves II through XII unremarkable. Cerebellum unremarkable. Motor and sensory unremarkable throughout. Exam nonfocal. Discussed with patient that his chest x-ray is showing a slight amount of pneumonia on the right lower base continues to have some heart failure Discussed the patient with Dr. House who is accepted for observation Diagnostics: []CBC CMP blood cultures 2 chest x-ray EKG INR BNP Therapeutics: []NS Zosyn Vancomycin Impression: []#1 right lower lobe pneumonia #2 mild hypoxemia #3 hypotension Plan: []Refer to observation Definitive disposition and diagnosis as appropriate pending reevaluation and review of above. Onset: Gradual Duration: Day(s): Location: Reports: Abdomen Severity: Mild Improves with: Reports: None Worsens with: Reports: None - Related Data Allergies Allergy/AdvReac Type Severity Reaction Status Date / Time No Known Allergies Allergy Verified 09/20/17 13:45 Home Meds: Home Meds Finasteride [Proscar] 5 mg PO DAILY 12/27/13 [History] Garlic [Garlic Oil] 500 mg PO DAILY 12/27/13 [History] Gluc HCl/Csa/Rowdy Hy/Hyalur Ac [Glucosamine Chondroitin] 1 tab PO DAILY [History] Lisinopril 40 mg PO BID 12/27/13 [History] Lutein 10 mg PO DAILY 12/27/13 [History] Alfuzosin HCl [Alfuzosin HCl ER] 10 mg PO DAILY 09/08/16 [History] Oxybutynin Chloride 5 mg PO TID 09/08/16 [History] Ammonium Lactate [Amlactin 12% Lotion] 3 gm TP BID PRN 09/15/17 [History] Dexamethasone/Tobramycin [Tobradex Ophth Oint] 1 applic OP BID 09/15/17 [History ] Aspirin 81 mg PO DAILY tab.chew 09/19/17 [Rx] Cetirizine [ZyrTEC] 10 mg PO DAILY tablet 09/19/17 [Rx] Furosemide [Lasix] 40 mg PO DAILY #30 tablet 09/19/17 [Rx] Metoprolol Tartrate [Lopressor] 75 mg PO TID #60 tablet 09/19/17 [Rx] Potassium Chloride [Klor-Con M20] 20 meq PO DAILY #14 tab.er 09/19/17 [Rx] Simvastatin [Zocor] 80 mg PO BEDTIME #30 09/19/17 [Rx] Warfarin [Coumadin] 5 mg PO DAILY #14 tab 09/19/17 [Rx] Past Medical History HEENT History: Reports: Allergic Rhinitis, Hard of Hearing Other HEENT History: has upper removable partial denture and bilateral hearing aides Cardiovascular History: Reports: CAD, Heart Failure, High Cholesterol, Hypertension, PVD Respiratory History: Reports: None Gastrointestinal History: Reports: Colon Polyp, Diverticulosis Genitourinary History: Reports: BPH Musculoskeletal History: Reports: None Neurological History: Reports: None Psychiatric History: Reports: None Endocrine/Metabolic History: Reports: Obesity/BMI 30+ Hematologic History: Reports: None Immunologic History: Reports: None Oncologic (Cancer) History: Reports: None Dermatologic History: Reports: None - Infectious Disease History Infectious Disease History: Reports: None - Past Surgical History Head Surgeries/Procedures: Reports: None HEENT Surgical History: Reports: None, Cataract Surgery Cardiovascular Surgical History: Reports: Carotid Endarterectomy, Coronary Artery Bypass Respiratory Surgical History: Reports: None GI Surgical History: Reports: Appendectomy, Colonoscopy, Hernia, Abdominal Male Surgical History: Reports: None Endocrine Surgical History: Reports: None Neurological Surgical History: Reports: None Musculoskeletal Surgical History: Reports: Knee Replacement Oncologic Surgical History: Reports: None Social & Family History - Family History Family Medical History: Noncontributory - Tobacco Use Smoking Status *Q: Never Smoker Second Hand Smoke Exposure: No - Caffeine Use Caffeine Use: Reports: None - Recreational Drug Use Recreational Drug Use: No - Living Situation & Occupation Living situation: Reports: Single Occupation: Retired ED ROS GENERAL - Review of Systems Review Of Systems: ROS reveals no pertinent complaints other than HPI. ED EXAM, GENERAL - Physical Exam Exam: See Below (see dictation) EKG INTERPRETATION EKG Date: 09/20/17 Rhythm: A-Fib Comparison: No Change Course - Vital Signs Last Recorded V/S: Last Vital Signs Temp 36.4 C 09/20/17 13:47 Pulse 110 H 09/20/17 13:47 Resp 18 09/20/17 13:47 BP 115/59 L 09/20/17 13:47 Pulse Ox 90 L 09/20/17 13:47 - Orders/Labs/Meds Orders: Active Orders 24 hr Category Date Time Status EKG Documentation Completion [RC] STAT Care 09/20/17 14:04 Active Oxygen Therapy, ED [RC] ASDIRECTED Care 09/20/17 14:00 Active Chest 1V Frontal [CR] Stat Exams 09/20/17 14:04 Taken CULTURE BLOOD [BC] Stat Lab 09/20/17 15:06 Ordered CULTURE BLOOD [BC] Stat Lab 09/20/17 15:06 Ordered UA W/MICROSCOPIC [URIN] Stat Lab 09/20/17 14:01 Ordered Piperacillin/Tazobactam [Piperacil-Tazobact] 3.375 gm Med 09/20/17 15:05 Ordered Sodium Chloride 0.9% [Normal Saline] 50 ml IV ONETIME Sodium Chloride 0.9% [Normal Saline] 500 ml Med 09/20/17 15:00 Active IV STAT Sodium Chloride 0.9% [Saline Flush] Med 09/20/17 14:00 Active 10 ml FLUSH ASDIRECTED PRN Sodium Chloride 0.9% [Saline Flush] Med 09/20/17 14:00 Active 2.5 ml FLUSH ASDIRECTED PRN Vancomycin [Vancocin] 1 gm Med 09/20/17 15:05 Ordered Sodium Chloride 0.9% [Normal Saline] 250 ml IV ONETIME Blood Culture x2 Reflex Set [OM.PC] Stat Ot 09/20/17 15:06 Ordered Saline Lock Insert [OM.PC] Stat Oth 09/20/17 14:00 Ordered Medication Orders Sodium Chloride (Normal Saline) 500 mls @ 999 mls/hr IV STAT [facility] Last Admin: 09/20/17 15:04 Dose: 999 mls/hr Piperacillin Sod/Tazobactam (Sod 3.375 gm/ Sodium Chloride) 50 mls @ 100 mls/ hr IV ONETIME ONE Stop: 09/20/17 15:34 Vancomycin HCl 1 gm/ Sodium (Chloride) 250 mls @ 250 mls/hr IV ONETIME ONE Stop: 09/20/17 16:04 Sodium Chloride (Saline Flush) 10 ml FLUSH ASDIRECTED PRN PRN Reason: Keep Vein Open Last Admin: 09/20/17 15:06 Dose: 10 ml Sodium Chloride (Saline Flush) 2.5 ml FLUSH ASDIRECTED PRN PRN Reason: Keep Vein Open Last Admin: 09/20/17 15:06 Dose: 2.5 ml Labs: Laboratory Tests 09/20/17 09/20/17 09/20/17 Range/Units 14:10 14:10 14:10 WBC 6.69 (4.0-11.0) K/uL RBC 4.53 (4.50-5.90) M/uL Hgb 13.1 (13.0-17.0) g/dL Hct 40.6 (38.0-50.0) % MCV 89.6 (80.0-98.0) fL MCH 28.9 (27.0-32.0) pg MCHC 32.3 (31.0-37.0) g/dL RDW Std Deviation 48.0 (28.0-62.0) fl RDW Coeff of Yanick 15 (11.0-15.0) % Plt Count 183 (150-400) K/uL MPV 9.90 (7.40-12.00) fL Neut % (Auto) 72.4 (48.0-80.0) % Lymph % (Auto) 20.5 (16.0-40.0) % Stephens % (Auto) 5.1 (0.0-15.0) % Eos % (Auto) 1.9 (0.0-7.0) % Baso % (Auto) 0.1 (0.0-1.5) % Neut # (Auto) 4.8 (1.4-5.7) K/uL Lymph # (Auto) 1.4 (0.6-2.4) K/uL Stephens # (Auto) 0.3 (0.0-0.8) K/uL Eos # (Auto) 0.1 (0.0-0.7) K/uL Baso # (Auto) 0.0 (0.0-0.1) K/uL Nucleated RBC % 0.0 /100WBC Nucleated RBCs # 0 K/uL Sodium 140 (136-148) mmol/L Potassium 3.8 (3.5-5.1) mmol/L Chloride 101 (98-107) mmol/L Carbon Dioxide 31.8 (21.0-32.0) mmol/L BUN 38 H (7.0-18.0) mg/dL Creatinine 1.9 H (0.8-1.3) mg/dL Est Cr Clr Drug Dosing 36.05 mL/min Estimated GFR (MDRD) 34.3 ml/min Glucose 226 H (74-106) mg/dL Calcium 8.9 (8.5-10.1) mg/dL Total Bilirubin 0.7 (0.2-1.0) mg/dL AST 33 (15-37) IU/L ALT 49 (14-63) IU/L Alkaline Phosphatase 61 (46-116) U/L Troponin I < 0.050 (0.000-0.056) ng/mL B-Natriuretic Peptide 392 H (<100) PG/ML Total Protein 7.5 (6.4-8.2) g/dL Albumin 3.7 (3.4-5.0) g/dL Globulin 3.8 H (2.0-3.5) g/dL Albumin/Globulin Ratio 1.0 L (1.3-2.8) TSH 3rd Generation 2.61 (0.36-3.74) uIU/mL Meds: Medications Generic Name Dose Route Start Last Admin Trade Name Freq PRN Reason Stop Dose Admin Sodium Chloride 500 mls @ 999 mls/hr 09/20/17 15:00 09/20/17 15:04 Normal Saline IV 999 mls/hr STAT [facility] Administration Piperacillin Sod/Tazobactam 50 mls @ 100 mls/hr 09/20/17 15:05 Sod 3.375 gm/ Sodium Chloride IV 09/20/17 15:34 ONETIME ONE Vancomycin HCl 1 gm/ Sodium 250 mls @ 250 mls/hr 09/20/17 15:05 Chloride IV 09/20/17 16:04 ONETIME ONE Sodium Chloride 10 ml 09/20/17 14:00 09/20/17 15:06 Saline Flush FLUSH 10 ml ASDIRECTED PRN Administration Keep Vein Open Sodium Chloride 2.5 ml 09/20/17 14:00 09/20/17 15:06 Saline Flush FLUSH 2.5 ml ASDIRECTED PRN Administration Keep Vein Open Departure - Departure Time of Disposition: 15:13 Disposition: Refer to Observation Condition: Good Clinical Impression: Paroxysmal A-fib, Hypoxemia Hypotension Qualifiers: Hypotension type: unspecified hypotension type Qualified Code(s): I95.9 - Hypotension, unspecified CHF (congestive heart failure) Qualifiers: Heart failure type: unspecified Heart failure chronicity: acute on chronic Qualified Code(s): I50.9 - Heart failure, unspecified Forms: ED Department Discharge - My Orders Last 24 Hours: My Active Orders 09/20/17 14:00 Oxygen Therapy, ED [RC] ASDIRECTED Sodium Chloride 0.9% [Saline Flush] 10 ml FLUSH ASDIRECTED PRN Sodium Chloride 0.9% [Saline Flush] 2.5 ml FLUSH ASDIRECTED PRN Saline Lock Insert [OM.PC] Stat 09/20/17 14:01 UA W/MICROSCOPIC [URIN] Stat 09/20/17 14:04 EKG Documentation Completion [RC] STAT Chest 1V Frontal [CR] Stat 09/20/17 15:00 Sodium Chloride 0.9% [Normal Saline] 500 ml IV STAT 09/20/17 15:05 Piperacillin/Tazobactam [Piperacil-Tazobact] 3.375 gm Sodium Chloride 0.9% [ Normal Saline] 50 ml IV ONETIME Vancomycin [Vancocin] 1 gm Sodium Chloride 0.9% [Normal Saline] 250 ml IV ONETIME 09/20/17 15:06 CULTURE BLOOD [BC] Stat CULTURE BLOOD [BC] Stat Blood Culture x2 Reflex Set [OM.PC] Stat - Assessment/Plan Last 24 Hours: My Active Orders 09/20/17 14:00 Oxygen Therapy, ED [RC] ASDIRECTED Sodium Chloride 0.9% [Saline Flush] 10 ml FLUSH ASDIRECTED PRN Sodium Chloride 0.9% [Saline Flush] 2.5 ml FLUSH ASDIRECTED PRN Saline Lock Insert [OM.PC] Stat 09/20/17 14:01 UA W/MICROSCOPIC [URIN] Stat 09/20/17 14:04 EKG Documentation Completion [RC] STAT Chest 1V Frontal [CR] Stat 09/20/17 15:00 Sodium Chloride 0.9% [Normal Saline] 500 ml IV STAT 09/20/17 15:05 Piperacillin/Tazobactam [Piperacil-Tazobact] 3.375 gm Sodium Chloride 0.9% [ Normal Saline] 50 ml IV ONETIME Vancomycin [Vancocin] 1 gm Sodium Chloride 0.9% [Normal Saline] 250 ml IV ONETIME 09/20/17 15:06 CULTURE BLOOD [BC] Stat CULTURE BLOOD [BC] Stat Blood Culture x2 Reflex Set [OM.PC] Stat
[2017-09-20 14:47] LABS: CHLORIDE,CL 101 mmol/L (98-107); SODIUM,NA 140 mmol/L (136-148)
[2017-09-20] MEDS ORDERED: Sodium Chloride 0.9% 500 ML IV SCH (15:00)
[2017-09-20] MEDS ORDERED: Acetaminophen 325 MG Tab PO PRN (15:49)
[2017-09-20] MEDS ORDERED: Ondansetron 4 MG Tab.DIS PO PRN (15:49)
[2017-09-20] MEDS: Piperacillin/Tazobactam 3.375 GM in Sodium Chloride 0.9% 50 ML IV ONE ×2 (16:34→16:38)
[2017-09-20] MEDS ORDERED: AMMONIUM LACTATE TOP PRN (16:38)
[2017-09-20] MEDS ORDERED: Potassium Chloride 20 MEQ Tab.ER PO ONE (16:45)
[2017-09-20] MEDS ORDERED: Levofloxacin 500 MG Tab PO SCH (16:45)
--- NOTE | 2017-09-20 16:45 | PCM.HP ---
H&P History of Present Illness - General Date of Service: 09/20/17 Admit Problem/Dx: Admission Diagnosis/Problem Admission Diagnosis/Problem Pneumonia Source of Information: Patient, Family (Son Jonathan at bedside.) History Limitations: Reports: No Limitations - History of Present Illness Initial Comments - Free Text/Narative: This 82 year old male with pmh of HTN, CAD, PVD, R CEA, WAQAR on CPAP, BPH and obesity presented to the ED today after being discharged home yesterday for CHF exacerbation. Today he reports he was checking his BP and noticed his heart rate would be fluctuating between 70s and 120s and he felt a weird fluttering in his chest with the higher heart rates and noticed his BP was a little lower, but unable to remember these. He denies chest pain or shortness of breath. No dizziness or lightheadedness. He Denies any other type of pain, no abdominal pain or urinary symptoms. He denies fevers, chills, myalgias, no cough. He reports he was doing well and was out walking in his yard and had these fluttering feelings in his chest. He reports taking All he scheduled medications this morning, including Coumadin, Metoprolol, Lasix, and Lisinopril. In the ED CBC WNL. Na 140, K+ 3.8, Mag 1.9, BUN 38 and Cr 1.9 (both elevated slightly since DC yesterday, BUN 28, Cr 1.5) Glucose 229, BNP 392. CXR revealed "lungs low in volume with crowded markings in the bases and potential infiltrate at the right base". EKG noted to be Afib with no acute findings, HR elevated 110. BP 115/59 in the ED. Oxygen also noted to be 90% on RA. He was given 500 ml bolus in the ED and placed on oxygen, 4l sats 98%. BC obtained. He will be admitted with Afib RVR. PCP, [place] [facility]- Dr Robertson. - Related Data Allergies/Adverse Reactions: Allergies Allergy/AdvReac Type Severity Reaction Status Date / Time No Known Allergies Allergy Verified 09/20/17 13:45 Home Medications: Home Meds Finasteride [Proscar] 5 mg PO DAILY 12/27/13 [History] Garlic [Garlic Oil] 500 mg PO DAILY 12/27/13 [History] Gluc HCl/Csa/Rowdy Hy/Hyalur Ac [Glucosamine Chondroitin] 1 tab PO DAILY [History] Lisinopril 40 mg PO BID 12/27/13 [History] Lutein 10 mg PO DAILY 12/27/13 [History] Alfuzosin HCl [Alfuzosin HCl ER] 10 mg PO DAILY 09/08/16 [History] Oxybutynin Chloride 5 mg PO TID 09/08/16 [History] Ammonium Lactate [Amlactin 12% Lotion] 3 gm TP BID PRN 09/15/17 [History] Dexamethasone/Tobramycin [Tobradex Ophth Oint] 1 applic OP BID 09/15/17 [History ] Aspirin 81 mg PO DAILY tab.chew 09/19/17 [Rx] Cetirizine [ZyrTEC] 10 mg PO DAILY tablet 09/19/17 [Rx] Furosemide [Lasix] 40 mg PO DAILY #30 tablet 09/19/17 [Rx] Metoprolol Tartrate [Lopressor] 75 mg PO TID #60 tablet 09/19/17 [Rx] Potassium Chloride [Klor-Con M20] 20 meq PO DAILY #14 tab.er 09/19/17 [Rx] Simvastatin [Zocor] 80 mg PO BEDTIME #30 09/19/17 [Rx] Warfarin [Coumadin] 5 mg PO DAILY #14 tab 09/19/17 [Rx] Past Medical History HEENT History: Reports: Allergic Rhinitis, Hard of Hearing Other HEENT History: has upper removable partial denture and bilateral hearing aides Cardiovascular History: Reports: Afib, CAD, Heart Failure, High Cholesterol, Hypertension, PVD. Denies: Blood Clots/VTE/DVT Respiratory History: Reports: None Gastrointestinal History: Reports: Colon Polyp, Diverticulosis Genitourinary History: Reports: BPH Musculoskeletal History: Reports: None Neurological History: Reports: None Psychiatric History: Reports: None Endocrine/Metabolic History: Reports: Obesity/BMI 30+ Hematologic History: Reports: None Immunologic History: Reports: None Oncologic (Cancer) History: Reports: None Dermatologic History: Reports: None - Infectious Disease History Infectious Disease History: Reports: None - Past Surgical History Head Surgeries/Procedures: Reports: None HEENT Surgical History: Reports: None, Cataract Surgery Cardiovascular Surgical History: Reports: Carotid Endarterectomy, Coronary Artery Bypass Respiratory Surgical History: Reports: None GI Surgical History: Reports: Appendectomy, Colonoscopy, Hernia, Abdominal Male Surgical History: Reports: None Endocrine Surgical History: Reports: None Neurological Surgical History: Reports: None Musculoskeletal Surgical History: Reports: Knee Replacement Oncologic Surgical History: Reports: None Social & Family History - Family History Family Medical History: Noncontributory - Tobacco Use Smoking Status *Q: Never Smoker Second Hand Smoke Exposure: No - Caffeine Use Caffeine Use: Reports: None - Recreational Drug Use Recreational Drug Use: No - Living Situation & Occupation Living situation: Reports: Single Occupation: Retired H&P Review of Systems - Review of Systems: Review Of Systems: See Below General: Reports: No Symptoms. Denies: Fever, Chills, Malaise, Weakness, Fatigue HEENT: Reports: No Symptoms. Denies: Headaches, Sinus Congestion, Sore Throat, Visual Changes Pulmonary: Reports: No Symptoms. Denies: Shortness of Breath, Wheezing, Cough, Sputum, Hemoptysis Cardiovascular: Reports: Palpitations, Edema (But much improved to lower legs and abdomen). Denies: Dyspnea on Exertion, Lightheadedness, Syncope Gastrointestinal: Reports: No Symptoms. Denies: Abdominal Pain, Black Stool, Bloody Stool, Distension, Nausea, Vomiting Genitourinary: Reports: No Symptoms. Denies: Dysuria, Frequency, Burning Musculoskeletal: Reports: No Symptoms Skin: Reports: No Symptoms Psychiatric: Reports: No Symptoms Neurological: Reports: No Symptoms Hematologic/Lymphatic: Reports: No Symptoms Immunologic: Reports: No Symptoms Exam - Exam Exam: See Below - Vital Signs Vital Signs: Last Vital Signs Temp 98 F 09/20/17 16:00 Pulse 86 09/20/17 16:00 Resp 18 09/20/17 16:00 BP 133/75 09/20/17 16:00 Pulse Ox 97 09/20/17 16:00 Weight: 138.527 kg - Exam Quality Assessment: Supplemental Oxygen (2 L NC 94%), DVT Prophylaxis (Coumadin) General: Alert, Oriented, Cooperative HEENT: Conjunctiva Clear, Mucosa Moist & [place], Posterior Pharynx Clear Neck: Supple, Trachea Midline, 2 Lungs: Clear to Auscultation, Normal Respiratory Effort. No: Decreased Breath Sounds, Crackles, Rhonchi, Wheezing Cardiovascular: Regular Rate, Irregular Rhythm. No: Tachycardia, Systolic Murmur GI/Abdominal Exam: Normal Bowel Sounds, Soft, Non-Tender, No Organomegaly, No Distention, No Abnormal Bruit, No Mass, Pelvis Stable Back Exam: Normal Inspection, Full Range of Motion, NT Extremities: Normal Inspection, Non-Tender, Pedal Edema (+ 1 pitting edema to R leg, +2 pitting to L leg. Much improved since last admission.) Peripheral Pulses: 1+: Posterior Tibial (L), Posterior Tibial (R), Dorsalis Pedis (L), Dorsalis Pedis (R) Skin: Warm, Dry, Wound (x2 R leg wounds, remain with newly placed aquacel dressings. Requests not to remove, "I just changed them today." No surround erythema or pain. No drainage. ) Neurological: Cranial Nerves Intact Neuro Extensive - Mental Status: Alert, Oriented x3, Normal Mood/Affect, Normal Cognition, Memory Intact Neuro Extensive - Motor, Sensory, Reflexes: CN II-XII Intact Psychiatric: Alert, Normal Affect, Normal Mood - Patient Data Lab Results Last 24 hrs: Laboratory Results - last 24 hr 09/20/17 09/20/17 09/20/17 Range/Units 14:10 14:10 14:10 WBC 6.69 (4.0-11.0) K/uL RBC 4.53 (4.50-5.90) M/uL Hgb 13.1 (13.0-17.0) g/dL Hct 40.6 (38.0-50.0) % MCV 89.6 (80.0-98.0) fL MCH 28.9 (27.0-32.0) pg MCHC 32.3 (31.0-37.0) g/dL RDW Std Deviation 48.0 (28.0-62.0) fl RDW Coeff of [place] 15 (11.0-15.0) % Plt Count 183 (150-400) K/uL MPV 9.90 (7.40-12.00) fL Neut % (Auto) 72.4 (48.0-80.0) % Lymph % (Auto) 20.5 (16.0-40.0) % [place] % (Auto) 5.1 (0.0-15.0) % Eos % (Auto) 1.9 (0.0-7.0) % Baso % (Auto) 0.1 (0.0-1.5) % Neut # (Auto) 4.8 (1.4-5.7) K/uL Lymph # (Auto) 1.4 (0.6-2.4) K/uL [place] # (Auto) 0.3 (0.0-0.8) K/uL Eos # (Auto) 0.1 (0.0-0.7) K/uL Baso # (Auto) 0.0 (0.0-0.1) K/uL Nucleated RBC % 0.0 /100WBC Nucleated RBCs # 0 K/uL INR Sodium 140 (136-148) mmol/L Potassium 3.8 (3.5-5.1) mmol/L Chloride 101 (98-107) mmol/L Carbon Dioxide 31.8 (21.0-32.0) mmol/L BUN 38 H (7.0-18.0) mg/dL Creatinine 1.9 H (0.8-1.3) mg/dL Est Cr Clr Drug Dosing 36.05 mL/min Estimated GFR (MDRD) 34.3 ml/min Glucose 226 H (74-106) mg/dL Calcium 8.9 (8.5-10.1) mg/dL Magnesium (1.5-2.0) mg/dL Total Bilirubin 0.7 (0.2-1.0) mg/dL AST 33 (15-37) IU/L ALT 49 (14-63) IU/L Alkaline Phosphatase 61 (46-116) U/L Troponin I < 0.050 (0.000-0.056) ng/mL B-Natriuretic Peptide 392 H (<100) PG/ML Total Protein 7.5 (6.4-8.2) g/dL Albumin 3.7 (3.4-5.0) g/dL Globulin 3.8 H (2.0-3.5) g/dL Albumin/Globulin Ratio 1.0 L (1.3-2.8) TSH 3rd Generation 2.61 (0.36-3.74) uIU/mL 09/20/17 09/20/17 Range/Units 14:10 14:10 WBC (4.0-11.0) K/uL RBC (4.50-5.90) M/uL Hgb (13.0-17.0) g/dL Hct (38.0-50.0) % MCV (80.0-98.0) fL MCH (27.0-32.0) pg MCHC (31.0-37.0) g/dL RDW Std Deviation (28.0-62.0) fl RDW Coeff of [place] (11.0-15.0) % Plt Count (150-400) K/uL MPV (7.40-12.00) fL Neut % (Auto) (48.0-80.0) % Lymph % (Auto) (16.0-40.0) % [place] % (Auto) (0.0-15.0) % Eos % (Auto) (0.0-7.0) % Baso % (Auto) (0.0-1.5) % Neut # (Auto) (1.4-5.7) K/uL Lymph # (Auto) (0.6-2.4) K/uL [place] # (Auto) (0.0-0.8) K/uL Eos # (Auto) (0.0-0.7) K/uL Baso # (Auto) (0.0-0.1) K/uL Nucleated RBC % /100WBC Nucleated RBCs # K/uL INR 1.82 Sodium (136-148) mmol/L Potassium (3.5-5.1) mmol/L Chloride (98-107) mmol/L Carbon Dioxide (21.0-32.0) mmol/L BUN (7.0-18.0) mg/dL Creatinine (0.8-1.3) mg/dL Est Cr Clr Drug Dosing mL/min Estimated GFR (MDRD) ml/min Glucose (74-106) mg/dL Calcium (8.5-10.1) mg/dL Magnesium 1.9 (1.5-2.0) mg/dL Total Bilirubin (0.2-1.0) mg/dL AST (15-37) IU/L ALT (14-63) IU/L Alkaline Phosphatase (46-116) U/L Troponin I (0.000-0.056) ng/mL B-Natriuretic Peptide (<100) PG/ML Total Protein (6.4-8.2) g/dL Albumin (3.4-5.0) g/dL Globulin (2.0-3.5) g/dL Albumin/Globulin Ratio (1.3-2.8) TSH 3rd Generation (0.36-3.74) uIU/mL Result Diagrams: 09/20/17 14:10 09/20/17 14:10 EKG INTERPRETATION EKG Date: 09/20/17 Rhythm: A-Fib Rate (Beats/Min): 110 QRS: Normal ST-T: Normal QT: Normal *Q Meaningful Use (ADM) - VTE Risk Assess *Q Each Risk Factor Represents 1 Point: Swollen Legs, Current, Obesity ( BMI > 25 kg/m2), Congestive heart failure (CHF) Total Score 1 Point Risk Factors: 3 Each Risk Factor Represents 2 Points: None Total Score 2 Point Risk Factors: 0 Each Risk Factor Represents 3 Points: Age 75 Years or Greater Total Score 3 Point Risk Factors: 3 Each Risk Factor Represents 5 Points: None Total Score 5 Point Risk Factors: 0 Venous Thromboembolism Risk Factor Score *Q: 6 - Problem List (1) Paroxysmal atrial fibrillation with RVR SNOMED Code(s): 051317441, 000530208152173 ICD Code: I48.0 - PAROXYSMAL ATRIAL FIBRILLATION Status: Acute Current Visit: Yes (2) CHF (congestive heart failure) SNOMED Code(s): 10084829 ICD Code: I50.9 - HEART FAILURE, UNSPECIFIED Status: Chronic Current Visit: Yes Qualifiers: Heart failure type: unspecified Heart failure chronicity: chronic Qualified Code(s): I50.9 - Heart failure, unspecified (3) BPH (benign prostatic hyperplasia) SNOMED Code(s): 199505214 ICD Code: N40.0 - BENIGN PROSTATIC HYPERPLASIA WITHOUT LOWER URINRY TRACT SYMP Status: Chronic Current Visit: No Qualifiers: Lower urinary tract symptom detail: unspecified (4) CAD (coronary artery disease) SNOMED Code(s): 73706648 ICD Code: I25.10 - ATHSCL HEART DISEASE OF [place] CORONARY ARTERY W/O ANG PCTRS Status: Chronic Current Visit: No Qualifiers: Coronary Disease-Associated Artery/Lesion type: [place] artery [place] vs. transplanted heart: [place] heart Associated angina: without angina Qualified Code(s): I25.10 - Atherosclerotic heart disease of [place] coronary artery without angina pectoris (5) Carotid stenosis Status: Chronic Current Visit: No Qualifiers: Laterality: right Qualified Code(s): I65.21 - Occlusion and stenosis of right carotid artery (6) HTN (hypertension) SNOMED Code(s): 62076770 ICD Code: I10 - ESSENTIAL (PRIMARY) HYPERTENSION Status: Chronic Current Visit: No Qualifiers: Hypertension type: essential hypertension Qualified Code(s): I10 - Essential (primary) hypertension (7) History of CEA (carotid endarterectomy) SNOMED Code(s): 442173181, 582266497 ICD Code: Z98.890 - OTHER SPECIFIED POSTPROCEDURAL STATES Status: Chronic Current Visit: No (8) Hx of CABG SNOMED Code(s): 828173269, 477442920 ICD Code: Z95.1 - PRESENCE OF AORTOCORONARY BYPASS GRAFT Status: Chronic Current Visit: No (9) Hx of total knee arthroplasty SNOMED Code(s): 5837794472729, 5311281970249 ICD Code: Z96.659 - PRESENCE OF UNSPECIFIED ARTIFICIAL KNEE JOINT Status: Chronic Current Visit: No Qualifiers: Laterality: left Qualified Code(s): Z96.652 - Presence of left artificial knee joint (10) WAQAR on CPAP SNOMED Code(s): 67448947 ICD Code: G47.33 - OBSTRUCTIVE SLEEP APNEA (ADULT) (PEDIATRIC); Z99.89 - DEPENDENCE ON OTHER ENABLING MACHINES AND DEVICES Status: Chronic Current Visit: No (11) Obesity SNOMED Code(s): 054787158, 775223642 ICD Code: E66.9 - OBESITY, UNSPECIFIED Status: Chronic Current Visit: No (12) PVD (peripheral vascular disease) SNOMED Code(s): 129632849 ICD Code: I73.9 - PERIPHERAL VASCULAR DISEASE, UNSPECIFIED Status: Chronic Current Visit: No (13) Wound of right lower extremity SNOMED Code(s): 867769142, 256235967 ICD Code: S81.801A - UNSPECIFIED OPEN WOUND, RIGHT LOWER LEG, INITIAL ENCOUNTER Status: Chronic Current Visit: Yes Qualifiers: Encounter type: subsequent encounter Qualified Code(s): S81.801D - Unspecified open wound, right lower leg, subsequent encounter Problem List Initiated/Reviewed/Updated: Yes Orders Last 24hrs: Active Orders 24 hr Category Date Time Status Patient Status [ADT] Stat ADT 09/20/17 15:11 Active EKG Documentation Completion [RC] STAT Care 09/20/17 14:04 Active Height and Weight [RC] DAILY Care 09/20/17 15:49 Active Intake and Output [RC] QSHIFT Care 09/20/17 15:49 Active Oxygen Therapy [RC] PRN Care 09/20/17 15:49 Active Oxygen Therapy, ED [RC] ASDIRECTED Care 09/20/17 14:00 Active Telemetry Monitoring [Cardiac Monitoring] [RC] . Care 09/20/17 15:14 Active DIRECTED Telemetry Monitoring [Cardiac Monitoring] [RC] . Care 09/20/17 16:01 Active DIRECTED Up ad [place] [RC] ASDIRECTED Care 09/20/17 15:49 Active Up to Chair [RC] ASDIRECTED Care 09/20/17 15:49 Active VTE/DVT Education [RC] PER UNIT ROUTINE Care 09/20/17 15:49 Active Vital Signs [RC] Q4H Care 09/20/17 15:49 Active 2 Gram Sodium Diet [DIET] Diet 09/20/17 Dinner Active Chest 1V Frontal [CR] Stat Exams 09/20/17 14:04 Taken BASIC METABOLIC PANEL,BMP [CHEM] AM Lab 09/21/17 05:11 Ordered BASIC METABOLIC PANEL,BMP [CHEM] AM Lab 09/22/17 05:11 Ordered CBC WITH AUTO DIFF [HEME] AM Lab 09/21/17 05:11 Ordered CBC WITH AUTO DIFF [HEME] AM Lab 09/22/17 05:11 Ordered CULTURE BLOOD [BC] Stat Lab 09/20/17 15:19 Received CULTURE BLOOD [BC] Stat Lab 09/20/17 15:35 Received CULTURE SPUTUM + SMEAR [RM] Stat Lab 09/20/17 15:49 Ordered INR,PT,PROTHROMBIN TIME [COAG] AM Lab 09/21/17 05:11 Ordered INR,PT,PROTHROMBIN TIME [COAG] AM Lab 09/22/17 05:11 Ordered MAGNESIUM [CHEM] AM Lab 09/21/17 05:11 Ordered MAGNESIUM [CHEM] AM Lab 09/22/17 05:11 Ordered UA W/MICROSCOPIC [URIN] Stat Lab 09/20/17 14:01 Ordered Acetaminophen [Tylenol] Med 09/20/17 15:49 Active 650 mg PO Q4H PRN Ondansetron [Zofran ODT] Med 09/20/17 15:49 Active 4 mg PO Q4H PRN Sodium Chloride 0.9% [Normal Saline] 500 ml Med 09/20/17 15:00 Active IV STAT Sodium Chloride 0.9% [Saline Flush] Med 09/20/17 14:00 Active 10 ml FLUSH ASDIRECTED PRN Sodium Chloride 0.9% [Saline Flush] Med 09/20/17 14:00 Active 2.5 ml FLUSH ASDIRECTED PRN Blood Culture x2 Reflex Set [OM.PC] Stat Ot 09/20/17 15:06 Ordered Saline Lock Insert [OM.PC] Stat Ot 09/20/17 14:00 Ordered Resuscitation Status Routine Resus Stat 09/20/17 15:49 Ordered Medication Orders Acetaminophen (Tylenol) 650 mg PO Q4H PRN PRN Reason: Pain (mild 1-3) Sodium Chloride (Normal Saline) 500 mls @ 999 mls/hr IV STAT [facility] Last Admin: 09/20/17 15:04 Dose: 999 mls/hr Ondansetron HCl (Zofran Odt) 4 mg PO Q4H PRN PRN Reason: nausea, able to take PO Sodium Chloride (Saline Flush) 10 ml FLUSH ASDIRECTED PRN PRN Reason: Keep Vein Open Last Admin: 09/20/17 15:06 Dose: 10 ml Sodium Chloride (Saline Flush) 2.5 ml FLUSH ASDIRECTED PRN PRN Reason: Keep Vein Open Last Admin: 09/20/17 15:06 Dose: 2.5 ml Assessment/Plan Comment:: This 82 year old male admitted with Afib RVR, hypoxia, ESTEE and possible pneumonia. 1. Afib RVR: Heart rate noted to elevate to 120s, with palpitations. No chest pain, dizziness or lightheadedness. Will increase Metoprolol to 100 mg TID and monitor. K+ 3.8 and Mag 1.9. Will monitor in am. Continue Coumadin 5 mg daily. INR 1.86 today. Monitor on telemetry. 2. ESTEE: May be related to recent diuresis with Lasix IV. Given 500 ml bolus in ED. Will hold off on any further fluid resuscitation due to CHF. Will hold Lisinopril and Lasix due to ESTEE. Monitor BMP in am. 3. Hypoxia: Denies dyspnea and no cough. Pneumonia suspicion low. No fevers, leukocytosis or cough. CXR reports potential RL infiltrate, prior CXR show scarring bilaterally. Will Start Levaquin 750 mg Q48 PO and monitor. Order sputum culture, but again denies cough. BC pending. 4. CHF: Stable. Continue low Na diet, heart healthy. BNP improved 392 from 670 last admission. Wt at 305 lbs today. Monitor closely. Continue compression stockings bilaterally. Daily weights and strict I/O 5. CAD: Stable. Continue Statin and ASA. 6. HTN: Stable. Recently, BP 134/80s upon arrival to med/surg floor. Holding Lisinopril and Lasix. Monitor. VTE prophylaxis: Coumadin. Dispo: 1-2 days pending improvement in HR.
[2017-09-20] MEDS: Metoprolol Tartrate 25 MG Tab PO SCH ×2 (17:24→23:32)
[2017-09-20] MEDS ORDERED: Simvastatin 40 MG Tab PO SCH (21:00)
[2017-09-20] MEDS: Oxybutynin 5 MG Tab PO SCH (21:13)
[2017-09-20] MEDS: TOBRADEX EYEBOTH SCH (22:18)
[2017-09-21] MEDS: Oxybutynin 5 MG Tab PO SCH ×3 (06:21→21:21)
[2017-09-21] MEDS: Metoprolol Tartrate 25 MG Tab PO SCH ×3 (06:21→21:22)
[2017-09-21] MEDS: Potassium Chloride 20 MEQ Tab.ER PO SCH (08:10)
[2017-09-21] MEDS: Cetirizine 10 MG Tab PO SCH (08:10)
[2017-09-21] MEDS: Finasteride 5 MG Tab PO SCH (08:10)
[2017-09-21] MEDS: Aspirin 81 MG Tab.Chew PO SCH (08:10)
[2017-09-21] MEDS: TOBRADEX EYEBOTH SCH ×2 (08:12→21:21)
[2017-09-21] MEDS: ALFUZOSIN 10 MG PO SCH (08:15)
[2017-09-21] MEDS ORDERED: LUTEIN 10 MG PO SCH (09:00)
--- NOTE | 2017-09-21 12:21 | PCM.PN ---
- General Info Date of Service: 09/21/17 Admission Dx/Problem (Free Text): Admission Diagnosis/Problem Admission Diagnosis/Problem Pneumonia Subjective Update: Feeling much better today. No palpitations. No cough, no fevers. Eager for discharge. No chest pain or SOB., Functional Status: Reports: Pain Controlled, Tolerating Diet, Ambulating, Urinating - Review of Systems General: Reports: No Symptoms. Denies: Fever, Weakness, Fatigue, Malaise HEENT: Reports: No Symptoms. Denies: Headaches, Sore Throat, Visual Changes Pulmonary: Reports: No Symptoms. Denies: Shortness of Breath Cardiovascular: Reports: Edema (improved). Denies: Chest Pain, Orthopnea Gastrointestinal: Reports: No Symptoms. Denies: Abdominal Pain, Diarrhea, Nausea, Vomiting Genitourinary: Reports: No Symptoms Musculoskeletal: Reports: No Symptoms Skin: Reports: No Symptoms Neurological: Reports: No Symptoms Psychiatric: Reports: No Symptoms - Patient Data Vitals - Most Recent: Last Vital Signs Temp 97.2 F 09/21/17 03:01 Pulse 70 09/21/17 08:00 Resp 16 09/21/17 08:00 BP 108/60 09/21/17 08:00 Pulse Ox 92 L 09/21/17 08:00 Weight - Most Recent: 136.5 kg I&O - Last 24 Hours: Intake & Output 09/20/17 09/21/17 09/21/17 22:59 06:59 14:59 Intake Total 520 Output Total 800 Balance -280 Lab Results Last 24 Hours: Laboratory Results - last 24 hr 09/20/17 09/20/17 09/20/17 Range/Units 14:10 14:10 14:10 WBC 6.69 (4.0-11.0) K/uL RBC 4.53 (4.50-5.90) M/uL Hgb 13.1 (13.0-17.0) g/dL Hct 40.6 (38.0-50.0) % MCV 89.6 (80.0-98.0) fL MCH 28.9 (27.0-32.0) pg MCHC 32.3 (31.0-37.0) g/dL RDW Std Deviation 48.0 (28.0-62.0) fl RDW Coeff of [place] 15 (11.0-15.0) % Plt Count 183 (150-400) K/uL MPV 9.90 (7.40-12.00) fL Neut % (Auto) 72.4 (48.0-80.0) % Lymph % (Auto) 20.5 (16.0-40.0) % [place] % (Auto) 5.1 (0.0-15.0) % Eos % (Auto) 1.9 (0.0-7.0) % Baso % (Auto) 0.1 (0.0-1.5) % Neut # (Auto) 4.8 (1.4-5.7) K/uL Lymph # (Auto) 1.4 (0.6-2.4) K/uL [place] # (Auto) 0.3 (0.0-0.8) K/uL Eos # (Auto) 0.1 (0.0-0.7) K/uL Baso # (Auto) 0.0 (0.0-0.1) K/uL Nucleated RBC % 0.0 /100WBC Nucleated RBCs # 0 K/uL INR Sodium 140 (136-148) mmol/L Potassium 3.8 (3.5-5.1) mmol/L Chloride 101 (98-107) mmol/L Carbon Dioxide 31.8 (21.0-32.0) mmol/L BUN 38 H (7.0-18.0) mg/dL Creatinine 1.9 H (0.8-1.3) mg/dL Est Cr Clr Drug Dosing 36.05 mL/min Estimated GFR (MDRD) 34.3 ml/min Glucose 226 H (74-106) mg/dL Calcium 8.9 (8.5-10.1) mg/dL Magnesium (1.5-2.0) mg/dL Total Bilirubin 0.7 (0.2-1.0) mg/dL AST 33 (15-37) IU/L ALT 49 (14-63) IU/L Alkaline Phosphatase 61 (46-116) U/L Troponin I < 0.050 (0.000-0.056) ng/mL B-Natriuretic Peptide 392 H (<100) PG/ML Total Protein 7.5 (6.4-8.2) g/dL Albumin 3.7 (3.4-5.0) g/dL Globulin 3.8 H (2.0-3.5) g/dL Albumin/Globulin Ratio 1.0 L (1.3-2.8) TSH 3rd Generation 2.61 (0.36-3.74) uIU/mL Urine Color Urine Appearance Urine pH (5.0-8.0) Ur Specific [place] (1.001-1.035) Urine Protein (NEGATIVE) mg/dL Urine Glucose (UA) (NEGATIVE) mg/dL Urine Ketones (NEGATIVE) mg/dL Urine Occult Blood (NEGATIVE) Urine Nitrite (NEGATIVE) Urine Bilirubin (NEGATIVE) Urine Urobilinogen (<2.0) EU/dL Ur Leukocyte Esterase (NEGATIVE) Urine RBC (0-2/HPF) Urine WBC (0-5/HPF) Ur Epithelial Cells (NONE-FEW) Urine Bacteria (NEGATIVE) 09/20/17 09/20/17 09/20/17 Range/Units 14:10 14:10 16:45 WBC (4.0-11.0) K/uL RBC (4.50-5.90) M/uL Hgb (13.0-17.0) g/dL Hct (38.0-50.0) % MCV (80.0-98.0) fL MCH (27.0-32.0) pg MCHC (31.0-37.0) g/dL RDW Std Deviation (28.0-62.0) fl RDW Coeff of [place] (11.0-15.0) % Plt Count (150-400) K/uL MPV (7.40-12.00) fL Neut % (Auto) (48.0-80.0) % Lymph % (Auto) (16.0-40.0) % [place] % (Auto) (0.0-15.0) % Eos % (Auto) (0.0-7.0) % Baso % (Auto) (0.0-1.5) % Neut # (Auto) (1.4-5.7) K/uL Lymph # (Auto) (0.6-2.4) K/uL [place] # (Auto) (0.0-0.8) K/uL Eos # (Auto) (0.0-0.7) K/uL Baso # (Auto) (0.0-0.1) K/uL Nucleated RBC % /100WBC Nucleated RBCs # K/uL INR 1.82 Sodium (136-148) mmol/L Potassium (3.5-5.1) mmol/L Chloride (98-107) mmol/L Carbon Dioxide (21.0-32.0) mmol/L BUN (7.0-18.0) mg/dL Creatinine (0.8-1.3) mg/dL Est Cr Clr Drug Dosing mL/min Estimated GFR (MDRD) ml/min Glucose (74-106) mg/dL Calcium (8.5-10.1) mg/dL Magnesium 1.9 (1.5-2.0) mg/dL Total Bilirubin (0.2-1.0) mg/dL AST (15-37) IU/L ALT (14-63) IU/L Alkaline Phosphatase (46-116) U/L Troponin I (0.000-0.056) ng/mL B-Natriuretic Peptide (<100) PG/ML Total Protein (6.4-8.2) g/dL Albumin (3.4-5.0) g/dL Globulin (2.0-3.5) g/dL Albumin/Globulin Ratio (1.3-2.8) TSH 3rd Generation (0.36-3.74) uIU/mL Urine Color YELLOW Urine Appearance CLEAR Urine pH 6.5 (5.0-8.0) Ur Specific [place] <= 1.005 (1.001-1.035) Urine Protein NEGATIVE (NEGATIVE) mg/dL Urine Glucose (UA) NEGATIVE (NEGATIVE) mg/dL Urine Ketones NEGATIVE (NEGATIVE) mg/dL Urine Occult Blood SMALL H (NEGATIVE) Urine Nitrite NEGATIVE (NEGATIVE) Urine Bilirubin NEGATIVE (NEGATIVE) Urine Urobilinogen 0.2 (<2.0) EU/dL Ur Leukocyte Esterase NEGATIVE (NEGATIVE) Urine RBC 1-3 (0-2/HPF) Urine WBC 0-1 (0-5/HPF) Ur Epithelial Cells RARE (NONE-FEW) Urine Bacteria RARE (NEGATIVE) 09/21/17 09/21/17 09/21/17 Range/Units 05:05 05:05 05:05 WBC 5.19 (4.0-11.0) K/uL RBC 4.28 L (4.50-5.90) M/uL Hgb 12.2 L (13.0-17.0) g/dL Hct 38.9 (38.0-50.0) % MCV 90.9 (80.0-98.0) fL MCH 28.5 (27.0-32.0) pg MCHC 31.4 (31.0-37.0) g/dL RDW Std Deviation 49.2 (28.0-62.0) fl RDW Coeff of [place] 15 (11.0-15.0) % Plt Count 159 (150-400) K/uL MPV 9.90 (7.40-12.00) fL Neut % (Auto) 62.9 (48.0-80.0) % Lymph % (Auto) 24.9 (16.0-40.0) % [place] % (Auto) 8.9 (0.0-15.0) % Eos % (Auto) 2.7 (0.0-7.0) % Baso % (Auto) 0.6 (0.0-1.5) % Neut # (Auto) 3.3 (1.4-5.7) K/uL Lymph # (Auto) 1.3 (0.6-2.4) K/uL [place] # (Auto) 0.5 (0.0-0.8) K/uL Eos # (Auto) 0.1 (0.0-0.7) K/uL Baso # (Auto) 0.0 (0.0-0.1) K/uL Nucleated RBC % 0.0 /100WBC Nucleated RBCs # 0 K/uL INR 1.92 Sodium 142 (136-148) mmol/L Potassium 3.9 (3.5-5.1) mmol/L Chloride 104 (98-107) mmol/L Carbon Dioxide 32.1 H (21.0-32.0) mmol/L BUN 37 H (7.0-18.0) mg/dL Creatinine 1.6 H (0.8-1.3) mg/dL Est Cr Clr Drug Dosing 42.81 mL/min Estimated GFR (MDRD) 41.8 ml/min Glucose 119 H (74-106) mg/dL Calcium 8.7 (8.5-10.1) mg/dL Magnesium 2.2 H (1.5-2.0) mg/dL Total Bilirubin (0.2-1.0) mg/dL AST (15-37) IU/L ALT (14-63) IU/L Alkaline Phosphatase (46-116) U/L Troponin I (0.000-0.056) ng/mL B-Natriuretic Peptide (<100) PG/ML Total Protein (6.4-8.2) g/dL Albumin (3.4-5.0) g/dL Globulin (2.0-3.5) g/dL Albumin/Globulin Ratio (1.3-2.8) TSH 3rd Generation (0.36-3.74) uIU/mL Urine Color Urine Appearance Urine pH (5.0-8.0) Ur Specific [place] (1.001-1.035) Urine Protein (NEGATIVE) mg/dL Urine Glucose (UA) (NEGATIVE) mg/dL Urine Ketones (NEGATIVE) mg/dL Urine Occult Blood (NEGATIVE) Urine Nitrite (NEGATIVE) Urine Bilirubin (NEGATIVE) Urine Urobilinogen (<2.0) EU/dL Ur Leukocyte Esterase (NEGATIVE) Urine RBC (0-2/HPF) Urine WBC (0-5/HPF) Ur Epithelial Cells (NONE-FEW) Urine Bacteria (NEGATIVE) Med Orders - Current: Current Medications Acetaminophen (Tylenol) 650 mg PO Q4H PRN PRN Reason: Pain (mild 1-3) Aspirin (Aspirin) 81 mg PO DAILY [facility] Last Admin: 09/21/17 08:10 Dose: 81 mg Cetirizine HCl (Zyrtec) 10 mg PO DAILY [facility] Last Admin: 09/21/17 08:10 Dose: 10 mg Finasteride (Proscar) 5 mg PO DAILY [facility] Last Admin: 09/21/17 08:10 Dose: 5 mg Levofloxacin (Levaquin) 750 mg PO Q48H [facility] Last Admin: 09/20/17 17:26 Dose: 750 mg Metoprolol Tartrate (Lopressor) 100 mg PO TID [facility] Last Admin: 09/21/17 06:21 Dose: 100 mg Ondansetron HCl (Zofran Odt) 4 mg PO Q4H PRN PRN Reason: nausea, able to take PO Oxybutynin Chloride (Oxybutynin) 5 mg PO TID [facility] Last Admin: 09/21/17 06:21 Dose: 5 mg Uroxatrol 10 Mg 1 each PO DAILY [facility] Last Admin: 09/21/17 08:15 Dose: Not Given Ammonium Lacate (Lotion) 1 each TOP BID PRN PRN Reason: dry skin Tobradex Ointment 1 each EYEBOTH BID [facility] Last Admin: 09/21/17 08:12 Dose: 1 each Potassium Chloride (Klor-Con M20) 20 meq PO DAILY [facility] Last Admin: 09/21/17 08:10 Dose: 20 meq Simvastatin (Zocor) 40 mg PO BEDTIME [facility] Sodium Chloride (Saline Flush) 10 ml FLUSH ASDIRECTED PRN PRN Reason: Keep Vein Open Last Admin: 09/20/17 15:06 Dose: 10 ml Sodium Chloride (Saline Flush) 2.5 ml FLUSH ASDIRECTED PRN PRN Reason: Keep Vein Open Last Admin: 09/20/17 15:06 Dose: 2.5 ml Warfarin Sodium (Coumadin) 5 mg PO DAILY@1400 [facility] Discontinued Medications Sodium Chloride (Normal Saline) 500 mls @ 999 mls/hr IV STAT [facility] Last Admin: 09/20/17 15:04 Dose: 999 mls/hr Piperacillin Sod/Tazobactam (Sod 3.375 gm/ Sodium Chloride) 50 mls @ 100 mls/ hr IV ONETIME ONE Stop: 09/20/17 15:34 Last Admin: 09/20/17 16:38 Dose: Not Given Vancomycin HCl 1 gm/ Sodium (Chloride) 250 mls @ 250 mls/hr IV ONETIME ONE Stop: 09/20/17 16:04 Last Admin: 09/20/17 16:38 Dose: Not Given Potassium Chloride (Klor-Con M20) 20 meq PO ONETIME ONE Stop: 09/20/17 16:46 Last Admin: 09/20/17 17:25 Dose: 20 meq Simvastatin (Zocor) 80 mg PO BEDTIME [facility] Last Admin: 09/20/17 21:13 Dose: 80 mg - Exam Quality Assessment: DVT Prophylaxis. No: Supplemental Oxygen (RA 92%) General: Alert, Oriented, Cooperative, No Acute Distress Neck: Supple Lungs: Clear to Auscultation, Normal Respiratory Effort Cardiovascular: Regular Rate, Irregular Rhythm. No: Tachycardia, Murmurs GI/Abdominal Exam: Normal Bowel Sounds, Soft, Non-Tender, No Organomegaly, No Distention, No Abnormal Bruit, No Mass, Pelvis Stable Extremities: Normal Range of Motion, Non-Tender, Pedal Edema (+1 R leg and +2 L leg. pitting) Wound/Incisions: Dressing Dry and Intact (Wounds to R leg with dressings intact. ). No: Erythema Neurological: No New Focal Deficit Psy/Mental Status: Alert, Normal Affect, Normal Mood - Problem List & Annotations (1) Paroxysmal atrial fibrillation with RVR SNOMED Code(s): 386293843, 173699660329424 Code(s): I48.0 - PAROXYSMAL ATRIAL FIBRILLATION Status: Acute Current Visit: Yes (2) CHF (congestive heart failure) SNOMED Code(s): 16785717 Code(s): I50.9 - HEART FAILURE, UNSPECIFIED Status: Chronic Current Visit : Yes Qualifiers: Heart failure type: unspecified Heart failure chronicity: chronic Qualified Code(s): I50.9 - Heart failure, unspecified (3) BPH (benign prostatic hyperplasia) SNOMED Code(s): 074872624 Code(s): N40.0 - BENIGN PROSTATIC HYPERPLASIA WITHOUT LOWER URINRY TRACT SYMP Status: Chronic Current Visit: No Qualifiers: Lower urinary tract symptom detail: unspecified (4) CAD (coronary artery disease) SNOMED Code(s): 71666039 Code(s): I25.10 - ATHSCL HEART DISEASE OF [place] CORONARY ARTERY W/O ANG PCTRS Status: Chronic Current Visit: No Qualifiers: Coronary Disease-Associated Artery/Lesion type: [place] artery [place] vs. transplanted heart: [place] heart Associated angina: without angina Qualified Code(s): I25.10 - Atherosclerotic heart disease of [place] coronary artery without angina pectoris (5) Carotid stenosis Status: Chronic Current Visit: No Qualifiers: Laterality: right Qualified Code(s): I65.21 - Occlusion and stenosis of right carotid artery (6) HTN (hypertension) SNOMED Code(s): 23806408 Code(s): I10 - ESSENTIAL (PRIMARY) HYPERTENSION Status: Chronic Current Visit: No Qualifiers: Hypertension type: essential hypertension Qualified Code(s): I10 - Essential (primary) hypertension (7) History of CEA (carotid endarterectomy) SNOMED Code(s): 544297919, 746879846 Code(s): Z98.890 - OTHER SPECIFIED POSTPROCEDURAL STATES Status: Chronic Current Visit: No (8) Hx of CABG SNOMED Code(s): 490588993, 348718269 Code(s): Z95.1 - PRESENCE OF AORTOCORONARY BYPASS GRAFT Status: Chronic Current Visit: No (9) Hx of total knee arthroplasty SNOMED Code(s): 3511458643290, 9643169649465 Code(s): Z96.659 - PRESENCE OF UNSPECIFIED ARTIFICIAL KNEE JOINT Status: Chronic Current Visit: No Qualifiers: Laterality: left Qualified Code(s): Z96.652 - Presence of left artificial knee joint (10) WAQAR on CPAP SNOMED Code(s): 98587736 Code(s): G47.33 - OBSTRUCTIVE SLEEP APNEA (ADULT) (PEDIATRIC); Z99.89 - DEPENDENCE ON OTHER ENABLING MACHINES AND DEVICES Status: Chronic Current Visit: No (11) Obesity SNOMED Code(s): 489630125, 700605553 Code(s): E66.9 - OBESITY, UNSPECIFIED Status: Chronic Current Visit: No (12) PVD (peripheral vascular disease) SNOMED Code(s): 568091108 Code(s): I73.9 - PERIPHERAL VASCULAR DISEASE, UNSPECIFIED Status: Chronic Current Visit: No (13) Wound of right lower extremity SNOMED Code(s): 405607797, 769350489 Code(s): S81.801A - UNSPECIFIED OPEN WOUND, RIGHT LOWER LEG, INITIAL ENCOUNTER Status: Chronic Current Visit: Yes Qualifiers: Encounter type: subsequent encounter Qualified Code(s): S81.801D - Unspecified open wound, right lower leg, subsequent encounter - Problem List Review Problem List Initiated/Reviewed/Updated: Yes - My Orders Last 24 Hours: My Active Orders 09/20/17 15:49 Height and Weight [RC] DAILY Intake and Output [RC] Q12H Oxygen Therapy [RC] PRN Up ad Miracle [RC] ASDIRECTED Up to Chair [RC] ASDIRECTED VTE/DVT Education [RC] PER UNIT ROUTINE Vital Signs [RC] Q4H Acetaminophen [Tylenol] 650 mg PO Q4H PRN Ondansetron [Zofran ODT] 4 mg PO Q4H PRN Resuscitation Status Routine 09/20/17 16:01 Telemetry Monitoring [Cardiac Monitoring] [RC] Q8H 09/20/17 16:38 Patient's Own Medication [Ptom] 1 each TOP BID PRN 09/20/17 16:43 Metoprolol Tartrate [Lopressor] 100 mg PO TID 09/20/17 16:45 Levofloxacin [Levaquin] 750 mg PO Q48H 09/20/17 17:05 DASH Hose [Antiembolic Hose] [OM.PC] Routine 09/20/17 21:00 Patient's Own Medication [Ptom] 1 each EYEBOTH BID 09/20/17 22:00 Oxybutynin 5 mg PO TID 09/20/17 Dinner 2 Gram Sodium Diet [DIET] 09/21/17 09:00 Aspirin 81 mg PO DAILY Cetirizine [ZyrTEC] 10 mg PO DAILY Finasteride [Proscar] 5 mg PO DAILY Patient's Own Medication [Ptom] 1 each PO DAILY Potassium Chloride [Klor-Con M20] 20 meq PO DAILY 09/21/17 14:00 Warfarin [Coumadin] 5 mg PO DAILY@1400 09/21/17 21:00 Simvastatin [Zocor] 40 mg PO BEDTIME 09/22/17 05:11 BASIC METABOLIC PANEL,BMP [CHEM] AM CBC WITH AUTO DIFF [HEME] AM INR,PT,PROTHROMBIN TIME [COAG] AM MAGNESIUM [CHEM] AM - Plan Plan:: This 82 year old male admitted with Afib RVR, hypoxia, ESTEE and possible pneumonia. 1. Afib RVR: Heart rate rate controlled 60-80s with increase of Metoprolol. No chest pain, dizziness or lightheadedness. K+ 3.9 and Mag 2.2. Will monitor in am. Continue Coumadin 5 mg daily. INR 1.92 today. Monitor on telemetry. 2. ESTEE: Improving. May be related to recent diuresis with Lasix IV. Will hold Lisinopril and Lasix due to ESTEE. Monitor BMP in am. 3. Hypoxia: No oxygen needed this morning. 92% on room air. Denies dyspnea and no cough. Pneumonia suspicion low. No fevers, leukocytosis or cough. CXR reports potential RL infiltrate, prior CXR show scarring bilaterally. Will Start Levaquin 750 mg Q48 PO and monitor. Order sputum culture, but again denies cough. BC pending. 4. CHF: Stable. Continue low Na diet, heart healthy.Monitor closely. Continue compression stockings bilaterally. Daily weights and strict I/O 5. CAD: Stable. Continue Statin and ASA. 6. HTN: Has been on lower side, 100-115/70s. Consulted Dr Robertson who agrees with stopping Lisinopril for now and continuing Lasix daily. He recommends monitoring overnight again to insure BP improves. VTE prophylaxis: Coumadin. Dispo: 1-2 days pending improvement in HR.
[2017-09-21] MEDS ORDERED: Warfarin 5 MG Tab PO SCH (14:00)
--- NOTE | 2017-09-21 14:44 | CR ---
EXAM DATE: 09/20/17 PATIENT'S AGE: 82 Patient: CARMEN CHAPA Facility: [place], [place] Site . Site : 1935 Study: XRay Chest [id number]/[id number] 2:48:18 PM Ordering Physician: Doctor Membreno Final Report: INDICATION: Chest pain and SOB. TECHNIQUE: Semi upright portable AP image of the chest. COMPARISON: 09/15/2017. FINDINGS: Lungs low in volume with crowded markings in the bases. Left base unchanged. Questionably greater opacity at the right base. No pleural effusion. Heart size stable. Pulmonary veins normal in caliber. Sternal wires again noted. No significant bony abnormality. IMPRESSION: Lungs low in volume with crowded markings in the bases and potential infiltrate at the right base. Dictated by Bryce Patel MD @ Sep 20 2017 2:49PM (Electronic Signature) Report Signed by Proxy. RENÉE
--- NOTE | 2017-09-21 18:47 | CONS ---
DATE OF CONSULTATION: DATE OF : 1935 PRIMARY CARE PHYSICIAN: Unknown PCP REASON FOR CONSULTATION: AFib, RVR. HISTORY OF PRESENT ILLNESS: This is an 82-year-old gentleman who has a history of CAD, CABG x2007, right carotid endarterectomy, peripheral vascular disease, obstructive sleep apnea using CPAP, who was recently admitted to the hospital due to decompensated congestive heart failure and unknown onset of atrial fibrillation. From the last admission, he was diuresed for the heart failure very well. He was discharged with Lasix 40 once a day, metoprolol 75 three times a day, lisinopril 40 mg twice a day as well as KCl, simvastatin 80 mg once a day. He got discharged on Wednesday and then he came back on Wednesday due to the concern of irregular heart rate. It was up to 90 beats per minute. It never go over 100 as well as his blood pressure was down to 99/45. He felt slightly nauseous. However, there was no chest pain. He felt that his breathing back to normal already since the last admission. He legs seemed to be well controlled going down. No worsening of legs swelling, however, his legs still swollen but is not worsening. Denied passing out or dizziness. When he got to the emergency room, he still in atrial fibrillation. His heart rate was 110 with a blood pressure of 91/58, and then he got admitted to the hospital. He was found to have worsening kidney function to 1.9. His baseline is around 1. So the IV fluid was given as well as lisinopril was on hold. Regarding atrial fibrillation and RVR, metoprolol was increased to 100 3 times a day and today repeated creatinine is improved to 1.6 and today he feels fine. PAST MEDICAL HISTORY: 1. CAD status post CABG in 2006. 2. Right carotid endarterectomy. 3. Peripheral vascular disease. 4. Sleep apnea, using CPAP. 5. History of impaired fasting glucose. 6. BPH. 7. Hypertension. 8. Morbid obesity. ALLERGIES: No known drug allergies. FAMILY HISTORY: No family history of CAD. SOCIAL HISTORY: Former smoker. Occasional drinker. No drug use. CURRENT MEDICATIONS: Lasix 40 mg p.o. once a day, metoprolol 100 mg 3 times a day, KCl 20 mEq once a day, simvastatin 80 mg once a day. Lisinopril has been on hold due to ESTEE. REVIEW OF SYSTEMS: Has been negative for 12-point review of systems except indicated in HPI. PHYSICAL EXAMINATION: VITAL SIGNS: Initial blood pressure is 91/58. The current blood pressure is 151/70, O2 saturation is 92 on room air, respiration is 16-18, and heart rate currently is hanging around 60-80, it is still irregular heart rate, temperature 36.8. HEENT: Not pale. Mouth dry. No jaundice. NECK: JVD is slightly positive. However, it is improved from the previous admission. LUNGS: Minimal crackle bilaterally. No wheezing. HEART: Totally irregular. No murmur. ABDOMEN: Soft, nontender. Bowel sounds present. No hepatosplenomegaly. EXTREMITIES: Legs, edema bilaterally but the left side is more swollen than the right side, but improved from the previous admission. LABORATORY INVESTIGATION: CBC showed WBC 5, hematocrit of 12, platelet is 159. INR is 1.9. Sodium 142, potassium 3.9, chloride 104, bicarb 32, BUN 37, creatinine 1.6, glucose 119, magnesium 2.2. Troponin negative. BNP is 392, improving from 600 before. ASSESSMENT AND PLAN: This is an 82-year-old male who has a history of CAD, CABG, right carotid end arterectomy, peripheral vascular disease, sleep apnea, using CPAP, history of impaired fasting glucose, BPH, hypertension, morbid obesity, new onset atrial fibrillation. Recent admission for decompensated heart failure. He is back to the hospital due to the concern of the low blood pressure as well as irregular heartbeat, atrial fibrillation, RVR. Currently, his heart rate is better controlled with metoprolol 100 t.i.d. and his blood pressure seemed to be improving slightly after IV fluid and due to ESTEE, I agree that we should hold the lisinopril for now and watching his blood pressure overnight and he still needs ischemic workup as an outpatient as well as repeat the echocardiogram as well. He still need to be on the 2 L of fluid restriction, low-salt diet as well. CARLOS / LISANDRA /[id number]
[2017-09-21] MEDS ORDERED: Simvastatin 40 MG Tab PO SCH (21:00)
[2017-09-22] MEDS: Oxybutynin 5 MG Tab PO SCH (05:37)
[2017-09-22] MEDS: Metoprolol Tartrate 25 MG Tab PO SCH (05:37)
--- NOTE | 2017-09-22 09:39 | PCM.DCSUM1 ---
Discharge Summary - Hospital Course Brief History: This 82 year old male with pmh of HTN, CAD, PVD, R CEA, WAQAR on CPAP, BPH and obesity presented to the ED today after being discharged home yesterday for CHF exacerbation. Today he reports he was checking his BP and noticed his heart rate would be fluctuating between 70s and 120s and he felt a weird fluttering in his chest with the higher heart rates and noticed his BP was a little lower, but unable to remember these. He denies chest pain or shortness of breath. No dizziness or lightheadedness. He Denies any other type of pain, no abdominal pain or urinary symptoms. He denies fevers, chills, myalgias, no cough. He reports he was doing well and was out walking in his yard and had these fluttering feelings in his chest. He reports taking All he scheduled medications this morning, including Coumadin, Metoprolol, Lasix, and Lisinopril. In the ED CBC WNL. Na 140, K+ 3.8, Mag 1.9, BUN 38 and Cr 1.9 ( both elevated slightly since DC yesterday, BUN 28, Cr 1.5) Glucose 229, BNP 392. CXR revealed "lungs low in volume with crowded markings in the bases and potential infiltrate at the right base". EKG noted to be Afib with no acute findings, HR elevated 110. BP 115/59 in the ED. Oxygen also noted to be 90% on RA. He was given 500 ml bolus in the ED and placed on oxygen, 4l sats 98%. BC obtained. He will be admitted with Afib RVR. PCP, [facility] [employer]- Dr Robertson. - Discharge Data Discharge Date: 09/22/17 Discharge Disposition: Home, Self-Care 01 Condition: Good - Discharge Diagnosis/Problem(s) (1) CHF (congestive heart failure) SNOMED Code(s): 15030964 ICD Code: I50.9 - HEART FAILURE, UNSPECIFIED Status: Chronic Current Visit: Yes Qualifiers: Heart failure type: unspecified Heart failure chronicity: chronic Qualified Code(s): I50.9 - Heart failure, unspecified (2) BPH (benign prostatic hyperplasia) SNOMED Code(s): 424498209 ICD Code: N40.0 - BENIGN PROSTATIC HYPERPLASIA WITHOUT LOWER URINRY TRACT SYMP Status: Chronic Current Visit: No Qualifiers: Lower urinary tract symptom detail: unspecified (3) CAD (coronary artery disease) SNOMED Code(s): 89154743 ICD Code: I25.10 - ATHSCL HEART DISEASE OF [place] CORONARY ARTERY W/O ANG PCTRS Status: Chronic Current Visit: No Qualifiers: Coronary Disease-Associated Artery/Lesion type: [place] artery [place] vs. transplanted heart: [place] heart Associated angina: without angina Qualified Code(s): I25.10 - Atherosclerotic heart disease of [place] coronary artery without angina pectoris (4) Carotid stenosis Status: Chronic Current Visit: No Qualifiers: Laterality: right Qualified Code(s): I65.21 - Occlusion and stenosis of right carotid artery (5) HTN (hypertension) SNOMED Code(s): 77603096 ICD Code: I10 - ESSENTIAL (PRIMARY) HYPERTENSION Status: Chronic Current Visit: No Qualifiers: Hypertension type: essential hypertension Qualified Code(s): I10 - Essential (primary) hypertension (6) History of CEA (carotid endarterectomy) SNOMED Code(s): 247503816, 932726228 ICD Code: Z98.890 - OTHER SPECIFIED POSTPROCEDURAL STATES Status: Chronic Current Visit: No (7) Hx of CABG SNOMED Code(s): 815793125, 267234370 ICD Code: Z95.1 - PRESENCE OF AORTOCORONARY BYPASS GRAFT Status: Chronic Current Visit: No (8) Hx of total knee arthroplasty SNOMED Code(s): 0450774514672, 1055362383578 ICD Code: Z96.659 - PRESENCE OF UNSPECIFIED ARTIFICIAL KNEE JOINT Status: Chronic Current Visit: No Qualifiers: Laterality: left Qualified Code(s): Z96.652 - Presence of left artificial knee joint (9) WAQAR on CPAP SNOMED Code(s): 96602882 ICD Code: G47.33 - OBSTRUCTIVE SLEEP APNEA (ADULT) (PEDIATRIC); Z99.89 - DEPENDENCE ON OTHER ENABLING MACHINES AND DEVICES Status: Chronic Current Visit: No (10) Obesity SNOMED Code(s): 263243752, 711777024 ICD Code: E66.9 - OBESITY, UNSPECIFIED Status: Chronic Current Visit: No (11) PVD (peripheral vascular disease) SNOMED Code(s): 380754407 ICD Code: I73.9 - PERIPHERAL VASCULAR DISEASE, UNSPECIFIED Status: Chronic Current Visit: No (12) Wound of right lower extremity SNOMED Code(s): 287412666, 078203932 ICD Code: S81.801A - UNSPECIFIED OPEN WOUND, RIGHT LOWER LEG, INITIAL ENCOUNTER Status: Chronic Current Visit: Yes Qualifiers: Encounter type: subsequent encounter Qualified Code(s): S81.801D - Unspecified open wound, right lower leg, subsequent encounter (13) Afib SNOMED Code(s): 36654901 ICD Code: I48.91 - UNSPECIFIED ATRIAL FIBRILLATION Status: Acute Current Visit: Yes - Patient Instructions Showering/Bathing: August Shower Notify Provider of: Fever, Increased Pain, Swelling and Redness, Drainage, Nausea and/or Vomiting - Discharge Plan Prescriptions/Med Rec: Levofloxacin [Levaquin] 750 mg PO Q48H #1 tablet Metoprolol Tartrate 100 mg PO TID #90 tablet Home Medications: Home Meds Finasteride [Proscar] 5 mg PO DAILY 12/27/13 [History] Gluc HCl/Csa/Rowdy Hy/Hyalur Ac [Glucosamine Chondroitin] 1 tab PO DAILY [History] Lutein 10 mg PO DAILY 12/27/13 [History] Alfuzosin HCl [Alfuzosin HCl ER] 10 mg PO DAILY 09/08/16 [History] Oxybutynin Chloride 5 mg PO TID 09/08/16 [History] Ammonium Lactate [Amlactin 12% Lotion] 3 gm TP BID PRN 09/15/17 [History] Dexamethasone/Tobramycin [Tobradex Ophth Oint] 1 applic OP BID 09/15/17 [History ] Aspirin 81 mg PO DAILY tab.chew 09/19/17 [Rx] Cetirizine [ZyrTEC] 10 mg PO DAILY tablet 09/19/17 [Rx] Furosemide [Lasix] 40 mg PO DAILY #30 tablet 09/19/17 [Rx] Potassium Chloride [Klor-Con M20] 20 meq PO DAILY #14 tab.er 09/19/17 [Rx] Simvastatin [Zocor] 40 mg PO BEDTIME 09/21/17 [History] Levofloxacin [Levaquin] 750 mg PO Q48H #1 tablet 09/22/17 [Rx] Metoprolol Tartrate 100 mg PO TID #90 tablet 09/22/17 [Rx] Warfarin [Coumadin] 7.5 mg PO DAILY #14 tab 09/22/17 [Rx] Referrals: Yesy Robertson MD [Physician] - 09/28/17 11:30 am PCP,Unknown [Primary Care Provider] - Winnie Crawford NP [Ordering Only Provider] - 10/04/17 1:00 pm - Discharge Summary/Plan Comment DC Time >30 min.: No Discharge Summary/Plan Comment: Discharge Diagnoses: Afib Anticoagulation HTN CAD Carotid steonsis hx R CEA Hx CABG WAQAR on CPAP PVD R leg wounds. Luis Eduardo was admitted and treated for suspected dehydration, with one time bolus and holding Lasix. He was also treated for Afib with RVR, Metoprolol increased to 100 mg TID, HR has remained controlled in 70s no longer elevating to 110s. He is no longer symptomatic. ESTEE has improved as well. BP has remained 100-120/ 80s. Asymptomatic when lower. His Lisinopril will be discontinued at this time and will need to be re-evaluated when ECHO is repeated and LV EF can be appropriately assessed. His triameterene and HCTZ discontinued last admission. Will continue Lasix 40 mg daily. Along with all other home medications. INR tody 1.82, will increase COumadin to 7.5 mg daily and repeat INR on WednesdaySeptember 28, Dr Robertson to follow. he is to continue heart healthy low sodium diet with 2 l FR at home. He is to return to ED or clinic if concerns should arise. Follow ups the same as previously with [facility] and Dr Robertson. PNA was suspected on admission, but no leukocytosis noted and no fevers, Levaquin give 750 mg Q48h x 5 days, but again this was low suspicion. He was educated to weight himself daily and bring log to doctor appointments to evaluate his heart failure. - General Info Date of Service: 09/22/17 Admission Dx/Problem (Free Text: Admission Diagnosis/Problem Admission Diagnosis/Problem Pneumonia Subjective Update: DOing well this morning, asking for discharge today. Feels really good. No chest pain, palpitations or shortness of breath. Functional Status: Reports: Pain Controlled, Tolerating Diet, Ambulating, Urinating - Review of Systems General: Reports: No Symptoms. Denies: Fever, Weakness, Fatigue, Malaise HEENT: Reports: No Symptoms. Denies: Headaches, Sore Throat, Rhinitis, Visual Changes Pulmonary: Reports: No Symptoms. Denies: Shortness of Breath Cardiovascular: Reports: No Symptoms. Denies: Chest Pain Gastrointestinal: Reports: No Symptoms. Denies: Abdominal Pain, Hematochezia, Nausea, Vomiting Genitourinary: Reports: No Symptoms. Denies: Dysuria, Frequency Musculoskeletal: Reports: No Symptoms Skin: Reports: No Symptoms Neurological: Reports: No Symptoms Psychiatric: Reports: No Symptoms - Patient Data Vitals - Most Recent: Last Vital Signs Temp 97.2 F 09/22/17 08:00 Pulse 68 09/22/17 05:37 Resp 18 09/22/17 08:00 BP 94/54 L 09/22/17 08:00 Pulse Ox 95 09/22/17 08:00 Weight - Most Recent: 138.034 kg I&O - Last 24 hours: Intake & Output 09/21/17 09/22/17 09/22/17 22:59 06:59 14:59 Intake Total 980 980 Output Total 1100 600 Balance -120 380 Lab Results - Last 24 hrs: Laboratory Results - last 24 hr 09/22/17 09/22/17 09/22/17 Range/Units 05:53 05:53 05:53 WBC 5.52 (4.0-11.0) K/uL RBC 4.29 L (4.50-5.90) M/uL Hgb 12.4 L (13.0-17.0) g/dL Hct 39.3 (38.0-50.0) % MCV 91.6 (80.0-98.0) fL MCH 28.9 (27.0-32.0) pg MCHC 31.6 (31.0-37.0) g/dL RDW Std Deviation 46.3 (28.0-62.0) fl RDW Coeff of [place] 14 (11.0-15.0) % Plt Count 166 (150-400) K/uL MPV 10.00 (7.40-12.00) fL Neut % (Auto) 65.8 (48.0-80.0) % Lymph % (Auto) 23.4 (16.0-40.0) % [place] % (Auto) 7.8 (0.0-15.0) % Eos % (Auto) 2.5 (0.0-7.0) % Baso % (Auto) 0.5 (0.0-1.5) % Neut # (Auto) 3.6 (1.4-5.7) K/uL Lymph # (Auto) 1.3 (0.6-2.4) K/uL [place] # (Auto) 0.4 (0.0-0.8) K/uL Eos # (Auto) 0.1 (0.0-0.7) K/uL Baso # (Auto) 0.0 (0.0-0.1) K/uL INR 1.82 Sodium 139 (136-148) mmol/L Potassium 3.8 (3.5-5.1) mmol/L Chloride 103 (98-107) mmol/L Carbon Dioxide 30.9 (21.0-32.0) mmol/L BUN 34 H (7.0-18.0) mg/dL Creatinine 1.5 H (0.8-1.3) mg/dL Est Cr Clr Drug Dosing 45.69 mL/min Estimated GFR (MDRD) 45.0 ml/min Glucose 118 H (74-106) mg/dL Calcium 9.0 (8.5-10.1) mg/dL Magnesium 2.1 H (1.5-2.0) mg/dL JOSE ARMANDO Results - Last 24 hrs: Microbiology 09/20/17 15:35 Aerobic Blood Culture - Preliminary Blood - Venous - Lab Draw NO GROWTH AFTER 1 DAY Anaerobic Blood Culture - Preliminary NO GROWTH AFTER 1 DAY 09/20/17 15:19 Aerobic Blood Culture - Preliminary Blood - Venous NO GROWTH AFTER 1 DAY Anaerobic Blood Culture - Preliminary NO GROWTH AFTER 1 DAY Med Orders - Current: Current Medications Acetaminophen (Tylenol) 650 mg PO Q4H PRN PRN Reason: Pain (mild 1-3) Aspirin (Aspirin) 81 mg PO DAILY [facility] Last Admin: 09/21/17 08:10 Dose: 81 mg Cetirizine HCl (Zyrtec) 10 mg PO DAILY [facility] Last Admin: 09/21/17 08:10 Dose: 10 mg Finasteride (Proscar) 5 mg PO DAILY [facility] Last Admin: 09/21/17 08:10 Dose: 5 mg Levofloxacin (Levaquin) 750 mg PO Q48H [facility] Last Admin: 09/20/17 17:26 Dose: 750 mg Metoprolol Tartrate (Lopressor) 100 mg PO TID [facility] Last Admin: 09/22/17 05:37 Dose: 100 mg Ondansetron HCl (Zofran Odt) 4 mg PO Q4H PRN PRN Reason: nausea, able to take PO Oxybutynin Chloride (Oxybutynin) 5 mg PO TID [facility] Last Admin: 09/22/17 05:37 Dose: 5 mg Uroxatrol 10 Mg 1 each PO DAILY [facility] Last Admin: 09/21/17 08:15 Dose: Not Given Ammonium Lacate (Lotion) 1 each TOP BID PRN PRN Reason: dry skin Tobradex Ointment 1 each EYEBOTH BID [facility] Last Admin: 09/21/17 21:21 Dose: 1 each Potassium Chloride (Klor-Con M20) 20 meq PO DAILY [facility] Last Admin: 09/21/17 08:10 Dose: 20 meq Simvastatin (Zocor) 40 mg PO BEDTIME [facility] Last Admin: 09/21/17 21:21 Dose: 40 mg Sodium Chloride (Saline Flush) 10 ml FLUSH ASDIRECTED PRN PRN Reason: Keep Vein Open Last Admin: 09/20/17 15:06 Dose: 10 ml Sodium Chloride (Saline Flush) 2.5 ml FLUSH ASDIRECTED PRN PRN Reason: Keep Vein Open Last Admin: 09/20/17 15:06 Dose: 2.5 ml Warfarin Sodium (Coumadin) 5 mg PO DAILY@1400 [facility] Last Admin: 09/21/17 14:10 Dose: 5 mg Discontinued Medications Sodium Chloride (Normal Saline) 500 mls @ 999 mls/hr IV STAT [facility] Last Admin: 09/20/17 15:04 Dose: 999 mls/hr Piperacillin Sod/Tazobactam (Sod 3.375 gm/ Sodium Chloride) 50 mls @ 100 mls/ hr IV ONETIME ONE Stop: 09/20/17 15:34 Last Admin: 09/20/17 16:38 Dose: Not Given Vancomycin HCl 1 gm/ Sodium (Chloride) 250 mls @ 250 mls/hr IV ONETIME ONE Stop: 09/20/17 16:04 Last Admin: 09/20/17 16:38 Dose: Not Given Potassium Chloride (Klor-Con M20) 20 meq PO ONETIME ONE Stop: 09/20/17 16:46 Last Admin: 09/20/17 17:25 Dose: 20 meq Simvastatin (Zocor) 80 mg PO BEDTIME [facility] Last Admin: 09/20/17 21:13 Dose: 80 mg - Exam Quality Assessment: Reports: DVT Prophylaxis. Denies: Supplemental Oxygen General: Reports: Alert, Oriented, Cooperative, No Acute Distress Neck: Reports: Supple Lungs: Reports: Clear to Auscultation, Normal Respiratory Effort Cardiovascular: Reports: Regular Rate, Irregular Rhythm. Denies: Tachycardia, Murmurs GI/Abdominal Exam: Normal Bowel Sounds, Soft, Non-Tender, No Organomegaly, No Distention, No Abnormal Bruit, No Mass, Pelvis Stable Skin: Reports: Dry, Intact Wound/Incisions: Reports: Dressing Dry and Intact (x2 r leg wounds, no erythema continues to heal) Neurological: Reports: No New Focal Deficit Psy/Mental Status: Reports: Alert, Normal Affect, Normal Mood
[2017-09-22] MEDS: Aspirin 81 MG Tab.Chew PO SCH (10:22)
[2017-09-22] MEDS: Potassium Chloride 20 MEQ Tab.ER PO SCH (10:22)
[2017-09-22] MEDS: Finasteride 5 MG Tab PO SCH (10:24)
[2017-09-22] MEDS ORDERED: Levofloxacin 250 MG Tab PO ONE (10:25)
[2017-09-22] MEDS: Cetirizine 10 MG Tab PO SCH (10:25)
[2017-09-22] MEDS: ALFUZOSIN 10 MG PO SCH (10:28)
[2017-09-22] MEDS: TOBRADEX EYEBOTH SCH (10:47)
[2017-09-22 11:50] VITALS: BP 124/93
[2017-09-22] MEDS ORDERED: Metoprolol Tartrate 50 MG Tab PO SCH (14:00)
== END 2017-09-22 13:15 | disposition home or self-care (01) ==
LOC: MW.ED 13:42 → MW.MS 15:29
PROVIDERS: ADMIT Internal Medicine; ATTEND Internal Medicine
DX: I48.0 Paroxysmal atrial fibrillation (principal); R09.02 Hypoxemia; N17.9 Acute kidney failure, unspecified; I11.0 Hypertensive heart disease with heart failure; I50.9 Heart failure, unspecified; I25.10 Atherosclerotic heart disease of native coronary artery without angina pectoris; I73.9 Peripheral vascular disease, unspecified; G47.33 Obstructive sleep apnea (adult) (pediatric); N40.0 Benign prostatic hyperplasia without lower urinary tract symptoms; E66.01 Morbid (severe) obesity due to excess calories; E78.00 Pure hypercholesterolemia, unspecified; Z68.30 Body mass index [BMI] 30.0-30.9, adult; Z98.890 Other specified postprocedural states; Z99.89 Dependence on other enabling machines and devices; Z95.1 Presence of aortocoronary bypass graft; Z96.652 Presence of left artificial knee joint; Z79.899 Other long term (current) drug therapy; Z79.82 Long term (current) use of aspirin; Z79.01 Long term (current) use of anticoagulants; Z87.891 Personal history of nicotine dependence
CPT/HCPCS: 36415; 71045; 71045-26; 80048; 80053; 81001; 83735; 83880; 84443; 84484; 85025; 85610; 87040; 93005; 99285-25; A9270-GY; G0378; J2543; J7040; J7050

== ENCOUNTER 2019-08-07 11:22 | Inpatient (IN) | payer BC, MEDICARE, OTHER ==
[2019-08-07 12:18] LABS: CARBON DIOXIDE,CO2 29.8 mmol/L (21.0-32.0); POTASSIUM,K 3.8 mmol/L (3.5-5.1)
--- NOTE | 2019-08-07 12:47 | CR ---
Left foot: 3 views of the left foot were obtained. Comparison: No previous study. Plantar spur is seen. Diffuse soft tissue swelling is noted. Severe joint space narrowing is noted within the 1st MTP joint. Lucency is noted within the distal aspect of the proximal phalanx of the 1st digit and difficult to exclude osteomyelitis. No focal erosive change is otherwise seen. Small foreign body is projected within the heel measuring about 2 mm. Impression: 1. Calcaneal spurs and degenerative change. 2. Diffuse soft tissue swelling. 3. Difficult to exclude osteomyelitis within the distal proximal phalanx of the 1st digit. 4. Small radiopaque foreign object is projected within the heel. Diagnostic code #3 This report was dictated in MDT
--- NOTE | 2019-08-07 12:47 | CR ---
Chest: Portable view of the chest was obtained. Comparison: Prior chest x-ray of 09/20/17. Heart is enlarged. Previous sternotomy is noted. Minimal scarring within the right mid to lower lung. Lungs otherwise are clear. Impression: 1. Findings as noted above. 2. Nothing acute is appreciated. Diagnostic code #2 This report was dictated in MDT
[2019-08-07] MEDS ORDERED: Piperacillin/Tazobactam 3.375 GM in Sodium Chloride 0.9% 50 ML IV ONE (14:02)
--- NOTE | 2019-08-07 14:03 | EDM.PDOC ---
ED HPI GENERAL MEDICAL PROBLEM - General Chief Complaint: Skin Complaint Stated Complaint: INFECTION Time Seen by Provider: 08/07/19 14:15 Source of Information: Reports: Patient History Limitations: Reports: No Limitations - History of Present Illness INITIAL COMMENTS - FREE TEXT/NARRATIVE: Patient is 83-year-old male presenting with a history of CHF, morbid obesity, hypertension, diabetes presenting with chief complaint of lower extremity swelling and redness. Patient states that the left, swelling has been present for some time and been progressively worsening over the past weeks. Patient states he is noticed increased redness over the past few days. Patient states that the redness is not painful. Patient was in urology clinic earlier today is having difficulty urinating and was sent to the ER for his lower extremity swelling and redness. Patient denies any fevers, chills, shortness of breath. Pmhx: Per HPI Pshx: Per chart Family Hx: noncontributory Smoking history? no Etoh use? none Drug use? none In addition to that documented in the HPI above, the additional ROS was obtained : Constitutional: Denies fevers or chills Eyes: Denies vision changes ENMT: Denies sore throat CV: Denies chest pain Resp: Denies SOB GI: Denies vomiting or diarrhea : Denies painful urination MSK: Denies recent trauma Skin: Per HPI Neuro: Denies new numbness or tingling or weakness Endocrine: Denies unexpected weight loss Heme: Denies bleeding disorders I have reviewed the triage vital signs Const: Well nourished, well developed, appears stated age Eyes: PERRL, no conjunctival injection HENT: NCAT, Neck supple without meningismus CV: RRR, Warm, well-perfused extremities RESP: CTAB, Unlabored respiratory effort GI: soft, non-tender, non-distended, no masses MSK: No gross deformities appreciated Skin: Diffuse swelling and erythema to bilateral lower extremities. The erythema on the left lower extremity extends from the left foot to the medial left groin. There is no involvement of the scrotum or perianal area. Neuro: Alert, fourdrinier wire weaver II-XII grossly intact. Sensation and motor function of extremities grossly intact. Psych: Appropriate mood and affect Assessment and plan: Patient is 83-year-old male with a history of CHF presenting with lower extremity swelling and redness. Patient has normal vital signs and normal lab studies. Likely cause of redness is a cellulitis. Patient has likely superimposed volume overload secondary to heart failure. There is no evidence of sepsis based on vital signs and labs. No evidence of a forniers gangrene based on the physical exam. This does not appear to be a DVT which is also considered on differential as patient clinical presentation is more consistent with CHF and infectious etiology. Patient will be initiated on IV antibiotics and placed for observation given his advanced age and associated comorbidities. Patient will also require increased diuresis and kidney monitoring given his baseline renal function. This case was discussed with Dr. House hospitalist who agreed to accept the patient for observation. bilateral lower legs Pain Score (Numeric/FACES): 2 - Related Data Allergies Allergy/AdvReac Type Severity Reaction Status Date / Time No Known Allergies Allergy Verified 09/20/17 13:45 Home Meds: Home Meds Finasteride [Proscar] 5 mg PO DAILY 12/27/13 [History] Glucosam/Chond/Collagen/Hyalur [Glucosamine Chondroitin] 1 tab PO DAILY [History] Lutein 10 mg PO DAILY 12/27/13 [History] Ammonium Lactate [Amlactin 12% Lotion] 3 gm TP BID PRN 09/15/17 [History] Simvastatin [Zocor] 40 mg PO BEDTIME 09/21/17 [History] Metoprolol Tartrate 100 mg PO TID #90 tablet 09/22/17 [Rx] Apixaban [Eliquis] 5 mg PO BID 08/07/19 [History] Furosemide 80 mg PO BID 08/07/19 [History] Garlic 1 tab PO DAILY 08/07/19 [History] Loratadine 10 mg PO DAILY 08/07/19 [History] Mupirocin Oint [Bactroban Oint] 1 applic TP QID 08/07/19 [History] Potassium Chloride [Klor-Con 10] 10 meq PO TID 08/07/19 [History] Tamsulosin HCl [Flomax] 0.8 mg PO ACDINNER 08/07/19 [History] Past Medical History HEENT History: Reports: Allergic Rhinitis, Hard of Hearing Other HEENT History: has upper removable partial denture and bilateral hearing aides Cardiovascular History: Reports: Afib, CAD, Heart Failure, High Cholesterol, Hypertension, PVD Respiratory History: Reports: Sleep Apnea Gastrointestinal History: Reports: Colon Polyp, Diverticulosis Genitourinary History: Reports: BPH, Urinary Incontinence Musculoskeletal History: Reports: Back Pain, Chronic Neurological History: Reports: None Psychiatric History: Reports: None Endocrine/Metabolic History: Reports: Obesity/BMI 30+ Hematologic History: Reports: None Immunologic History: Reports: None Oncologic (Cancer) History: Reports: None Dermatologic History: Reports: None - Infectious Disease History Infectious Disease History: Reports: None - Past Surgical History Head Surgeries/Procedures: Reports: None HEENT Surgical History: Reports: Cataract Surgery Cardiovascular Surgical History: Reports: Carotid Endarterectomy, Coronary Artery Bypass Respiratory Surgical History: Reports: None GI Surgical History: Reports: Appendectomy, Colonoscopy, Hernia, Abdominal Male Surgical History: Reports: None Endocrine Surgical History: Reports: None Neurological Surgical History: Reports: None Musculoskeletal Surgical History: Reports: Knee Replacement Oncologic Surgical History: Reports: None Dermatological Surgical History: Reports: None Social & Family History - Family History Family Medical History: Noncontributory - Tobacco Use Smoking Status *Q: Unknown Ever Smoked - Caffeine Use Caffeine Use: Reports: None - Recreational Drug Use Recreational Drug Use: No - Living Situation & Occupation Living situation: Reports: Single Occupation: Retired ED ROS GENERAL - Review of Systems Review Of Systems: See Below ED EXAM, SKIN/RASH Exam: See Below Course - Vital Signs Last Recorded V/S: Last Vital Signs Temp 36.0 C L 08/07/19 11:34 Pulse 73 08/07/19 13:25 Resp 18 08/07/19 13:25 BP 115/66 08/07/19 13:25 Pulse Ox 95 08/07/19 13:25 - Orders/Labs/Meds Orders: Active Orders 24 hr Category Date Time Status Admission Status [Patient Status] [ADT] Stat ADT 08/07/19 14:00 Active Piperacillin/Tazobactam [Piperacil-Tazobact] 3.375 gm Med 08/07/19 14:02 Active Sodium Chloride 0.9% [Normal Saline] 50 ml IV ONETIME Medication Orders Piperacillin Sod/Tazobactam (Sod 3.375 gm/ Sodium Chloride) 50 mls @ 100 mls/ hr IV ONETIME ONE Stop: 08/07/19 14:31 Labs: Laboratory Tests 08/07/19 08/07/19 08/07/19 Range/Units 11:46 11:46 11:46 WBC 6.28 (4.0-11.0) K/uL RBC 3.87 L (4.50-5.90) M/uL Hgb 11.5 L (13.0-17.0) g/dL Hct 36.4 L (38.0-50.0) % MCV 94.1 (80.0-98.0) fL MCH 29.7 (27.0-32.0) pg MCHC 31.6 (31.0-37.0) g/dL RDW Std Deviation 55.6 (28.0-62.0) fl RDW Coeff of Yanick 16 H (11.0-15.0) % Plt Count 149 L (150-400) K/uL MPV 10.10 (7.40-12.00) fL Neut % (Auto) 76.3 (48.0-80.0) % Lymph % (Auto) 13.5 L (16.0-40.0) % Dare % (Auto) 9.2 (0.0-15.0) % Eos % (Auto) 0.8 (0.0-7.0) % Baso % (Auto) 0.2 (0.0-1.5) % Neut # (Auto) 4.8 (1.4-5.7) K/uL Lymph # (Auto) 0.9 (0.6-2.4) K/uL Dare # (Auto) 0.6 (0.0-0.8) K/uL Eos # (Auto) 0.1 (0.0-0.7) K/uL Baso # (Auto) 0.0 (0.0-0.1) K/uL Nucleated RBC % 0.0 /100WBC Nucleated RBCs # 0 K/uL Lactate 1.6 (0.20-2.00) mmol/L Sodium 139 (136-148) mmol/L Potassium 3.8 (3.5-5.1) mmol/L Chloride 101 (98-107) mmol/L Carbon Dioxide 29.8 (21.0-32.0) mmol/L BUN 32 H (7.0-18.0) mg/dL Creatinine 1.5 H (0.8-1.3) mg/dL Est Cr Clr Drug Dosing 41.14 mL/min Estimated GFR (MDRD) 44.9 ml/min Glucose 152 H (74-106) mg/dL Calcium 8.4 L (8.5-10.1) mg/dL Total Bilirubin 0.9 (0.2-1.0) mg/dL AST 23 (15-37) IU/L ALT 25 (14-63) IU/L Alkaline Phosphatase 124 H (46-116) U/L B-Natriuretic Peptide (<100) PG/ML Total Protein 7.6 (6.4-8.2) g/dL Albumin 3.1 L (3.4-5.0) g/dL Globulin 4.5 H (2.6-4.0) g/dL Albumin/Globulin Ratio 0.7 L (0.9-1.6) 08/07/19 Range/Units 11:46 WBC (4.0-11.0) K/uL RBC (4.50-5.90) M/uL Hgb (13.0-17.0) g/dL Hct (38.0-50.0) % MCV (80.0-98.0) fL MCH (27.0-32.0) pg MCHC (31.0-37.0) g/dL RDW Std Deviation (28.0-62.0) fl RDW Coeff of Yanick (11.0-15.0) % Plt Count (150-400) K/uL MPV (7.40-12.00) fL Neut % (Auto) (48.0-80.0) % Lymph % (Auto) (16.0-40.0) % Dare % (Auto) (0.0-15.0) % Eos % (Auto) (0.0-7.0) % Baso % (Auto) (0.0-1.5) % Neut # (Auto) (1.4-5.7) K/uL Lymph # (Auto) (0.6-2.4) K/uL Dare # (Auto) (0.0-0.8) K/uL Eos # (Auto) (0.0-0.7) K/uL Baso # (Auto) (0.0-0.1) K/uL Nucleated RBC % /100WBC Nucleated RBCs # K/uL Lactate (0.20-2.00) mmol/L Sodium (136-148) mmol/L Potassium (3.5-5.1) mmol/L Chloride (98-107) mmol/L Carbon Dioxide (21.0-32.0) mmol/L BUN (7.0-18.0) mg/dL Creatinine (0.8-1.3) mg/dL Est Cr Clr Drug Dosing mL/min Estimated GFR (MDRD) ml/min Glucose (74-106) mg/dL Calcium (8.5-10.1) mg/dL Total Bilirubin (0.2-1.0) mg/dL AST (15-37) IU/L ALT (14-63) IU/L Alkaline Phosphatase (46-116) U/L B-Natriuretic Peptide 305 H (<100) PG/ML Total Protein (6.4-8.2) g/dL Albumin (3.4-5.0) g/dL Globulin (2.6-4.0) g/dL Albumin/Globulin Ratio (0.9-1.6) Meds: Medications Generic Name Dose Route Start Last Admin Trade Name Freq PRN Reason Stop Dose Admin Piperacillin Sod/Tazobactam 50 mls @ 100 mls/hr 08/07/19 14:02 Sod 3.375 gm/ Sodium Chloride IV 08/07/19 14:31 ONETIME ONE Departure - Departure Time of Disposition: 14:03 Disposition: Refer to Observation Clinical Impression: Cellulitis of leg without foot, left - Discharge Information Referrals: [facility] [Primary Care Provider] - Forms: ED Department Discharge Sepsis Event Note - Evaluation Sepsis Screening Result: No Definite Risk - Focused Exam Vital Signs: Vital Signs Temp Pulse Resp BP Pulse Ox 08/07/19 13:25 73 18 115/66 95 08/07/19 12:50 73 18 121/69 94 L 08/07/19 11:34 36.0 C L 78 18 124/65 92 L Date Exam was Performed: 08/07/19 Time Exam was Performed: 14:15 - My Orders Last 24 Hours: My Active Orders 08/07/19 14:00 Admission Status [Patient Status] [ADT] Stat 08/07/19 14:02 Piperacillin/Tazobactam [Piperacil-Tazobact] 3.375 gm Sodium Chloride 0.9% [ Normal Saline] 50 ml IV ONETIME - Assessment/Plan Last 24 Hours: My Active Orders 08/07/19 14:00 Admission Status [Patient Status] [ADT] Stat 08/07/19 14:02 Piperacillin/Tazobactam [Piperacil-Tazobact] 3.375 gm Sodium Chloride 0.9% [ Normal Saline] 50 ml IV ONETIME
[2019-08-07] MEDS ORDERED: Furosemide 40 MG/4 ML VIAL IVPUSH ONE (15:19)
--- NOTE | 2019-08-07 15:32 | PCM.HP.2 ---
H&P History of Present Illness - General Date of Service: 08/07/19 Admit Problem/Dx: Admission Diagnosis/Problem Admission Diagnosis/Problem Cellulitis of right anterior lower leg - History of Present Illness Initial Comments - Free Text/Narative: 83 year old male with pmh of HTN, CAD, CHF, s/p CABG. atrial fibrillation on anticoagulation, PVD, WAQAR on CPAP, BPH and obesity who presented to the ED with complaints of leg swelling and redness to his left leg. PAtient reports his left leg is always a little more edematous than the right as that is where they harvested a vein graft. He reports a 2-3 LB weight increase today. His legs are more swollen the left more than the right today. They are weeping clear fluid. He reports taking twice a day lasix but they seem to stop working. He denies any shortness of breath. HE reports redness around his left leg more so than his normal venous stasis changes. bilateral lower legs Pain Score (Numeric/FACES): 2 - Related Data Allergies/Adverse Reactions: Allergies Allergy/AdvReac Type Severity Reaction Status Date / Time No Known Allergies Allergy Verified 08/07/19 15:40 Home Medications: Home Meds Finasteride [Proscar] 5 mg PO DAILY 12/27/13 [History] Glucosam/Chond/Collagen/Hyalur [Glucosamine Chondroitin] 1 tab PO DAILY [History] Lutein 10 mg PO DAILY 12/27/13 [History] Ammonium Lactate [Amlactin 12% Lotion] 3 gm TP BID PRN 09/15/17 [History] Simvastatin [Zocor] 40 mg PO BEDTIME 09/21/17 [History] Metoprolol Tartrate 100 mg PO TID #90 tablet 09/22/17 [Rx] Apixaban [Eliquis] 5 mg PO BID 08/07/19 [History] Furosemide 80 mg PO BID 08/07/19 [History] Garlic 1 tab PO DAILY 08/07/19 [History] Loratadine 10 mg PO DAILY 08/07/19 [History] Mupirocin Oint [Bactroban Oint] 1 applic TP QID 08/07/19 [History] Potassium Chloride [Klor-Con 10] 10 meq PO TID 08/07/19 [History] Tamsulosin HCl [Flomax] 0.8 mg PO ACDINNER 08/07/19 [History] Past Medical History HEENT History: Reports: Allergic Rhinitis, Hard of Hearing Other HEENT History: has upper removable partial denture and bilateral hearing aides Cardiovascular History: Reports: Afib, CAD, Heart Failure, High Cholesterol, Hypertension, PVD Respiratory History: Reports: Sleep Apnea Gastrointestinal History: Reports: Colon Polyp, Diverticulosis Genitourinary History: Reports: BPH, Urinary Incontinence Musculoskeletal History: Reports: Back Pain, Chronic Neurological History: Reports: None Psychiatric History: Reports: None Endocrine/Metabolic History: Reports: Obesity/BMI 30+ Hematologic History: Reports: None Immunologic History: Reports: None Oncologic (Cancer) History: Reports: None Dermatologic History: Reports: None - Infectious Disease History Infectious Disease History: Reports: None - Past Surgical History Head Surgeries/Procedures: Reports: None HEENT Surgical History: Reports: Cataract Surgery Cardiovascular Surgical History: Reports: Carotid Endarterectomy, Coronary Artery Bypass Respiratory Surgical History: Reports: None GI Surgical History: Reports: Appendectomy, Colonoscopy, Hernia, Abdominal Male Surgical History: Reports: None Endocrine Surgical History: Reports: None Neurological Surgical History: Reports: None Musculoskeletal Surgical History: Reports: Knee Replacement Oncologic Surgical History: Reports: None Dermatological Surgical History: Reports: None Social & Family History - Family History Family Medical History: Noncontributory - Tobacco Use Smoking Status *Q: Unknown Ever Smoked - Caffeine Use Caffeine Use: Reports: None - Recreational Drug Use Recreational Drug Use: No - Living Situation & Occupation Living situation: Reports: Single Occupation: Retired H&P Review of Systems - Review of Systems: Review Of Systems: Comprehensive ROS is negative, except as noted in HPI. Exam - Exam Exam: See Below - Vital Signs Vital Signs: Last Vital Signs Temp 36.0 C L 08/07/19 11:34 Pulse 82 08/07/19 14:22 Resp 18 08/07/19 13:25 BP 113/70 08/07/19 14:22 Pulse Ox 95 08/07/19 14:22 Weight: 326 kg - Exam General: Alert, Oriented HEENT: Mucosa Moist & [place] Lungs: Clear to Auscultation, Normal Respiratory Effort Cardiovascular: Regular Rate, Regular Rhythm GI/Abdominal Exam: Soft, Non-Tender Extremities: Other (+3 edema on right, left leg +4 with mild erythema below the knee anteriorly and extending down to above the ankle) Neurological: No: Focal Deficit - Patient Data Lab Results Last 24 hrs: Laboratory Results - last 24 hr 08/07/19 08/07/19 08/07/19 Range/Units 11:46 11:46 11:46 WBC 6.28 (4.0-11.0) K/uL RBC 3.87 L (4.50-5.90) M/uL Hgb 11.5 L (13.0-17.0) g/dL Hct 36.4 L (38.0-50.0) % MCV 94.1 (80.0-98.0) fL MCH 29.7 (27.0-32.0) pg MCHC 31.6 (31.0-37.0) g/dL RDW Std Deviation 55.6 (28.0-62.0) fl RDW Coeff of Yanick 16 H (11.0-15.0) % Plt Count 149 L (150-400) K/uL MPV 10.10 (7.40-12.00) fL Neut % (Auto) 76.3 (48.0-80.0) % Lymph % (Auto) 13.5 L (16.0-40.0) % Coffee % (Auto) 9.2 (0.0-15.0) % Eos % (Auto) 0.8 (0.0-7.0) % Baso % (Auto) 0.2 (0.0-1.5) % Neut # (Auto) 4.8 (1.4-5.7) K/uL Lymph # (Auto) 0.9 (0.6-2.4) K/uL Coffee # (Auto) 0.6 (0.0-0.8) K/uL Eos # (Auto) 0.1 (0.0-0.7) K/uL Baso # (Auto) 0.0 (0.0-0.1) K/uL Nucleated RBC % 0.0 /100WBC Nucleated RBCs # 0 K/uL Lactate 1.6 (0.20-2.00) mmol/L Sodium 139 (136-148) mmol/L Potassium 3.8 (3.5-5.1) mmol/L Chloride 101 (98-107) mmol/L Carbon Dioxide 29.8 (21.0-32.0) mmol/L BUN 32 H (7.0-18.0) mg/dL Creatinine 1.5 H (0.8-1.3) mg/dL Est Cr Clr Drug Dosing 41.14 mL/min Estimated GFR (MDRD) 44.9 ml/min Glucose 152 H (74-106) mg/dL Calcium 8.4 L (8.5-10.1) mg/dL Total Bilirubin 0.9 (0.2-1.0) mg/dL AST 23 (15-37) IU/L ALT 25 (14-63) IU/L Alkaline Phosphatase 124 H (46-116) U/L B-Natriuretic Peptide (<100) PG/ML Total Protein 7.6 (6.4-8.2) g/dL Albumin 3.1 L (3.4-5.0) g/dL Globulin 4.5 H (2.6-4.0) g/dL Albumin/Globulin Ratio 0.7 L (0.9-1.6) 08/07/19 Range/Units 11:46 WBC (4.0-11.0) K/uL RBC (4.50-5.90) M/uL Hgb (13.0-17.0) g/dL Hct (38.0-50.0) % MCV (80.0-98.0) fL MCH (27.0-32.0) pg MCHC (31.0-37.0) g/dL RDW Std Deviation (28.0-62.0) fl RDW Coeff of Yanick (11.0-15.0) % Plt Count (150-400) K/uL MPV (7.40-12.00) fL Neut % (Auto) (48.0-80.0) % Lymph % (Auto) (16.0-40.0) % Coffee % (Auto) (0.0-15.0) % Eos % (Auto) (0.0-7.0) % Baso % (Auto) (0.0-1.5) % Neut # (Auto) (1.4-5.7) K/uL Lymph # (Auto) (0.6-2.4) K/uL Coffee # (Auto) (0.0-0.8) K/uL Eos # (Auto) (0.0-0.7) K/uL Baso # (Auto) (0.0-0.1) K/uL Nucleated RBC % /100WBC Nucleated RBCs # K/uL Lactate (0.20-2.00) mmol/L Sodium (136-148) mmol/L Potassium (3.5-5.1) mmol/L Chloride (98-107) mmol/L Carbon Dioxide (21.0-32.0) mmol/L BUN (7.0-18.0) mg/dL Creatinine (0.8-1.3) mg/dL Est Cr Clr Drug Dosing mL/min Estimated GFR (MDRD) ml/min Glucose (74-106) mg/dL Calcium (8.5-10.1) mg/dL Total Bilirubin (0.2-1.0) mg/dL AST (15-37) IU/L ALT (14-63) IU/L Alkaline Phosphatase (46-116) U/L B-Natriuretic Peptide 305 H (<100) PG/ML Total Protein (6.4-8.2) g/dL Albumin (3.4-5.0) g/dL Globulin (2.6-4.0) g/dL Albumin/Globulin Ratio (0.9-1.6) Result Diagrams: 08/08/19 05:14 08/08/19 05:14 Sepsis Event Note - Evaluation Sepsis Screening Result: No Definite Risk - Focused Exam Vital Signs: Vital Signs Temp Pulse Resp BP Pulse Ox 08/07/19 14:22 82 113/70 95 08/07/19 13:25 73 18 115/66 95 08/07/19 12:50 73 18 121/69 94 L 08/07/19 11:34 36.0 C L 78 18 124/65 92 L Date Exam was Performed: 08/08/19 Time Exam was Performed: 09:50 Problem List Initiated/Reviewed/Updated: Yes Orders Last 24hrs: Active Orders 24 hr Category Date Time Status Admission Status [Patient Status] [ADT] Stat ADT 08/07/19 14:00 Active Antiembolic Devices [RC] PER UNIT ROUTINE Care 08/07/19 15:21 Active Oxygen Therapy [RC] PRN Care 08/07/19 15:19 Active Up ad Miracle [RC] ASDIRECTED Care 08/07/19 15:19 Active VTE/DVT Education [RC] PER UNIT ROUTINE Care 08/07/19 15:19 Active Vital Signs [RC] Q4H Care 08/07/19 15:19 Active 2 Gram Sodium Diet [DIET] Diet 08/07/19 Breakfast Active BASIC METABOLIC PANEL,BMP [CHEM] AM Lab 08/08/19 05:11 Ordered CBC WITH AUTO DIFF [HEME] AM Lab 08/08/19 05:11 Ordered Apixaban [Eliquis] Med 08/07/19 21:00 Ordered 5 mg PO BID Finasteride [Proscar] Med 08/08/19 09:00 Ordered 5 mg PO DAILY Loratadine [Claritin] Med 08/08/19 09:00 Ordered 10 mg PO DAILY Metoprolol Tartrate Med 08/07/19 22:00 Ordered 100 mg PO TID Pharmacy to Dose - Vancomycin Med 08/07/19 15:30 Ordered 1 dose .XX ASDIRECTED Potassium Chloride [Klor-Con 10] Med 08/07/19 22:00 Ordered 10 meq PO TID Simvastatin [Zocor] Med 08/07/19 21:00 Ordered 40 mg PO BEDTIME Tamsulosin [Flomax] Med 08/07/19 17:00 Ordered 0.8 mg PO ACDINNER Sequential Compression Device [OM.PC] Per Unit Routine Oth 08/07/19 15:20 Ordered Resuscitation Status Routine Resus Stat 08/07/19 15:19 Ordered Medication Orders Apixaban (Eliquis) 5 mg PO BID MARIANNA Finasteride (Proscar) 5 mg PO DAILY [facility]IAN[facility] Loratadine (Claritin) 10 mg PO DAILY [facility] Non-Formulary Medication (Metoprolol Tartrate) 100 mg PO TID MARIANNA Non-Formulary Medication (Simvastatin [Zocor]) 40 mg PO BEDTIME MARIANNA Potassium Chloride (Klor-Con 10) 10 meq PO TID MARIANNA Tamsulosin HCl (Flomax) 0.8 mg PO ACDINNER MARIANNA Assessment/Plan Comment:: 83 yo male admitted with left leg cellulitis and fluid overload likely from CHF. We will treat cellulitis with vancomycin. We will check echocardiogram and diuresis with lasix 60mg IV.
[2019-08-07] MEDS ORDERED: Tamsulosin 0.4 MG Cap.ER PO SCH (17:00)
[2019-08-07] MEDS: Tamsulosin 0.4 MG Cap.ER PO SCH (17:56)
[2019-08-07] MEDS: Vancomycin 2 GM in Sodium Chloride 0.9% 500 ML IV SCH (17:57)
[2019-08-07] MEDS: Apixaban 5 MG Tab PO SCH (20:27)
[2019-08-07] MEDS: Metoprolol Tartrate 100 MG Tab PO SCH (22:16)
[2019-08-07] MEDS: Potassium Chloride 10 MEQ Tab.ER PO SCH (22:17)
[2019-08-08] MEDS: Vancomycin 2 GM in Sodium Chloride 0.9% 500 ML IV SCH ×2 (05:15→17:26)
[2019-08-08 05:44] LABS: CARBON DIOXIDE,CO2 31.7 mmol/L (21.0-32.0); POTASSIUM,K 3.9 mmol/L (3.5-5.1)
[2019-08-08] MEDS: Potassium Chloride 10 MEQ Tab.ER PO SCH ×3 (06:20→21:55)
[2019-08-08] MEDS: Metoprolol Tartrate 100 MG Tab PO SCH ×3 (06:20→21:56)
[2019-08-08] MEDS: Loratadine 10 MG Tab PO SCH (08:04)
[2019-08-08] MEDS: Apixaban 5 MG Tab PO SCH ×2 (08:04→20:26)
[2019-08-08] MEDS: Finasteride 5 MG Tab PO SCH (08:04)
--- NOTE | 2019-08-08 09:34 | PCM.PN ---
- General Info Date of Service: 08/08/19 - Review of Systems Systems Review Comment:: reports weeping of legs, denies shortness of breath or fevers. - Patient Data Vitals - Most Recent: Last Vital Signs Temp 37.2 C 08/08/19 07:20 Pulse 77 08/08/19 07:20 Resp 17 08/08/19 07:20 BP 116/65 08/08/19 07:20 Pulse Ox 92 L 08/08/19 07:20 Weight - Most Recent: 143.7 kg I&O - Last 24 Hours: Intake & Output 08/07/19 08/08/19 08/08/19 22:59 06:59 14:59 Intake Total 850 Output Total 750 Balance 100 Lab Results Last 24 Hours: Laboratory Results - last 24 hr 08/07/19 08/07/19 08/07/19 Range/Units 11:46 11:46 11:46 WBC 6.28 (4.0-11.0) K/uL RBC 3.87 L (4.50-5.90) M/uL Hgb 11.5 L (13.0-17.0) g/dL Hct 36.4 L (38.0-50.0) % MCV 94.1 (80.0-98.0) fL MCH 29.7 (27.0-32.0) pg MCHC 31.6 (31.0-37.0) g/dL RDW Std Deviation 55.6 (28.0-62.0) fl RDW Coeff of Yanick 16 H (11.0-15.0) % Plt Count 149 L (150-400) K/uL MPV 10.10 (7.40-12.00) fL Neut % (Auto) 76.3 (48.0-80.0) % Lymph % (Auto) 13.5 L (16.0-40.0) % [place] % (Auto) 9.2 (0.0-15.0) % Eos % (Auto) 0.8 (0.0-7.0) % Baso % (Auto) 0.2 (0.0-1.5) % Neut # (Auto) 4.8 (1.4-5.7) K/uL Lymph # (Auto) 0.9 (0.6-2.4) K/uL [place] # (Auto) 0.6 (0.0-0.8) K/uL Eos # (Auto) 0.1 (0.0-0.7) K/uL Baso # (Auto) 0.0 (0.0-0.1) K/uL Nucleated RBC % 0.0 /100WBC Nucleated RBCs # 0 K/uL Lactate 1.6 (0.20-2.00) mmol/L Sodium 139 (136-148) mmol/L Potassium 3.8 (3.5-5.1) mmol/L Chloride 101 (98-107) mmol/L Carbon Dioxide 29.8 (21.0-32.0) mmol/L BUN 32 H (7.0-18.0) mg/dL Creatinine 1.5 H (0.8-1.3) mg/dL Est Cr Clr Drug Dosing 41.14 mL/min Estimated GFR (MDRD) 44.9 ml/min Glucose 152 H (74-106) mg/dL Calcium 8.4 L (8.5-10.1) mg/dL Total Bilirubin 0.9 (0.2-1.0) mg/dL AST 23 (15-37) IU/L ALT 25 (14-63) IU/L Alkaline Phosphatase 124 H (46-116) U/L B-Natriuretic Peptide (<100) PG/ML Total Protein 7.6 (6.4-8.2) g/dL Albumin 3.1 L (3.4-5.0) g/dL Globulin 4.5 H (2.6-4.0) g/dL Albumin/Globulin Ratio 0.7 L (0.9-1.6) 08/07/19 08/08/19 08/08/19 Range/Units 11:46 05:14 05:14 WBC 5.44 (4.0-11.0) K/uL RBC 3.79 L (4.50-5.90) M/uL Hgb 11.0 L (13.0-17.0) g/dL Hct 35.7 L (38.0-50.0) % MCV 94.2 (80.0-98.0) fL MCH 29.0 (27.0-32.0) pg MCHC 30.8 L (31.0-37.0) g/dL RDW Std Deviation 54.8 (28.0-62.0) fl RDW Coeff of Yanick 16 H (11.0-15.0) % Plt Count 145 L (150-400) K/uL MPV 9.80 (7.40-12.00) fL Neut % (Auto) 73.3 (48.0-80.0) % Lymph % (Auto) 15.1 L (16.0-40.0) % [place] % (Auto) 10.3 (0.0-15.0) % Eos % (Auto) 0.9 (0.0-7.0) % Baso % (Auto) 0.4 (0.0-1.5) % Neut # (Auto) 4.0 (1.4-5.7) K/uL Lymph # (Auto) 0.8 (0.6-2.4) K/uL [place] # (Auto) 0.6 (0.0-0.8) K/uL Eos # (Auto) 0.1 (0.0-0.7) K/uL Baso # (Auto) 0.0 (0.0-0.1) K/uL Nucleated RBC % 0.0 /100WBC Nucleated RBCs # 0 K/uL Lactate (0.20-2.00) mmol/L Sodium 139 (136-148) mmol/L Potassium 3.9 (3.5-5.1) mmol/L Chloride 101 (98-107) mmol/L Carbon Dioxide 31.7 (21.0-32.0) mmol/L BUN 28 H (7.0-18.0) mg/dL Creatinine 1.3 (0.8-1.3) mg/dL Est Cr Clr Drug Dosing 51.81 mL/min Estimated GFR (MDRD) 53.0 ml/min Glucose 121 H (74-106) mg/dL Calcium 8.7 (8.5-10.1) mg/dL Total Bilirubin (0.2-1.0) mg/dL AST (15-37) IU/L ALT (14-63) IU/L Alkaline Phosphatase (46-116) U/L B-Natriuretic Peptide 305 H (<100) PG/ML Total Protein (6.4-8.2) g/dL Albumin (3.4-5.0) g/dL Globulin (2.6-4.0) g/dL Albumin/Globulin Ratio (0.9-1.6) Med Orders - Current: Current Medications Apixaban (Eliquis) 5 mg PO BID [facility] Last Admin: 08/08/19 08:04 Dose: 5 mg Finasteride (Proscar) 5 mg PO DAILY [facility] Last Admin: 08/08/19 08:04 Dose: 5 mg Furosemide (Lasix) 80 mg IV TID [facility] Vancomycin HCl 2 gm/ Sodium (Chloride) 500 mls @ 250 mls/hr IV Q12H [facility] Last Admin: 08/08/19 05:15 Dose: 250 mls/hr Loratadine (Claritin) 10 mg PO DAILY [facility] Last Admin: 08/08/19 08:04 Dose: 10 mg Metoprolol Tartrate (100 Mg Tab) 1 each PO TID [facility] Last Admin: 08/08/19 06:20 Dose: 1 each Potassium Chloride (10 Meq Tab.Er) 1 each PO TID [facility] Last Admin: 08/08/19 06:20 Dose: 1 each Simvastatin 80 Mg (Tab) 0.5 each PO BEDTIME [facility] Last Admin: 08/07/19 20:28 Dose: 0.5 each Tamsulosin 0.4 Mg (Cap.Er) 2 each PO ACDINNER [facility] Last Admin: 08/07/19 17:56 Dose: 2 each Vancomycin HCl (Pharmacy To Dose - Vancomycin) 1 dose .XX ASDIRECTED [facility] Discontinued Medications Furosemide (Lasix) 60 mg IVPUSH NOW ONE Stop: 08/07/19 15:20 Last Admin: 08/07/19 17:01 Dose: 60 mg Piperacillin Sod/Tazobactam (Sod 3.375 gm/ Sodium Chloride) 50 mls @ 100 mls/ hr IV ONETIME ONE Stop: 08/07/19 14:31 Last Admin: 08/07/19 14:20 Dose: 100 mls/hr Tamsulosin HCl (Flomax) 0.8 mg PO ACDINNER [facility] - Exam General: Alert, Oriented Lungs: Clear to Auscultation, Normal Respiratory Effort Cardiovascular: Regular Rate, Regular Rhythm GI/Abdominal Exam: Normal Bowel Sounds, Soft, Non-Tender Extremities: Pedal Edema (+3 bilateral edema, no change in erythema of left leg) Psy/Mental Status: Alert, Normal Affect Sepsis Event Note - Evaluation Sepsis Screening Result: No Definite Risk - Focused Exam Vital Signs: Vital Signs Temp Pulse Resp BP Pulse Ox 08/08/19 07:20 37.2 C 77 17 116/65 92 L 08/08/19 04:38 36.6 C 83 18 116/61 92 L 08/08/19 00:21 36.9 C 89 18 114/67 94 L Date Exam was Performed: 08/08/19 Time Exam was Performed: 09:48 - Problem List Review Problem List Initiated/Reviewed/Updated: Yes - My Orders Last 24 Hours: My Active Orders 08/07/19 15:19 Oxygen Therapy [RC] PRN Up ad Miracle [RC] ASDIRECTED VTE/DVT Education [RC] PER UNIT ROUTINE Vital Signs [RC] Q4H Resuscitation Status Routine 08/07/19 15:20 Sequential Compression Device [OM.PC] Per Unit Routine 08/07/19 15:21 Antiembolic Devices [RC] PER UNIT ROUTINE 08/07/19 15:27 CPAP Noctural Home [RT BiPAP/CPAP] [RC] ASDIRECTED 08/07/19 15:30 Pharmacy to Dose - Vancomycin 1 dose .XX ASDIRECTED 08/07/19 17:00 Patient's Own Medication [Ptom] 2 each PO ACDINNER 08/07/19 17:30 Vancomycin 2 gm Sodium Chloride 0.9% [Normal Saline] 500 ml IV Q12H 08/07/19 21:00 Apixaban [Eliquis] 5 mg PO BID Patient's Own Medication [Ptom] 0.5 each PO BEDTIME 08/07/19 22:00 Patient's Own Medication [Ptom] 1 each PO TID Patient's Own Medication [Ptom] 1 each PO TID 08/08/19 09:00 Finasteride [Proscar] 5 mg PO DAILY Loratadine [Claritin] 10 mg PO DAILY 08/08/19 15:30 Echo Comp wo Cont [US] Routine 08/08/19 Lunch Fluid Restriction [DIET] 08/09/19 05:11 BASIC METABOLIC PANEL,BMP [CHEM] AM CBC WITH AUTO DIFF [HEME] AM GLYCOSYLATED HEMOGLOBIN,HGBA1C [CHEM] AM - Plan Plan:: 83 yo male admitted with left leg cellulitis and fluid overload likely from CHF. Cellulitis: continue vancomycin CHF: echo report pending, will increase lasix to 80mg TID Patient yesterday wasn't agreeable to stay longer than one night. Today he is agreeable to stay longer if needed. As he has failed to respond to oral Lasix will switch him to inpatient for further IV diuresis and treatment of his cellulitis.
[2019-08-08] MEDS: Furosemide 40 MG/4 ML VIAL IV SCH ×3 (09:47→21:54)
[2019-08-08] MEDS: Tamsulosin 0.4 MG Cap.ER PO SCH (17:24)
[2019-08-09 05:37] LABS: CARBON DIOXIDE,CO2 30.5 mmol/L (21.0-32.0); POTASSIUM,K 3.4 mmol/L (3.5-5.1)
[2019-08-09 05:39] LABS: HEMOGLOBIN A1C 7.4 % (4.5-6.2)
[2019-08-09] MEDS: Furosemide 40 MG/4 ML VIAL IV SCH ×3 (05:57→23:02)
[2019-08-09] MEDS: Metoprolol Tartrate 100 MG Tab PO SCH ×3 (05:59→23:03)
[2019-08-09] MEDS: Potassium Chloride 10 MEQ Tab.ER PO SCH ×3 (05:59→21:59)
[2019-08-09] MEDS: Vancomycin 2 GM in Sodium Chloride 0.9% 500 ML IV SCH (06:07)
[2019-08-09] MEDS: Acetaminophen 325 MG Tab PO PRN (07:58)
[2019-08-09] MEDS: Apixaban 5 MG Tab PO SCH ×2 (08:54→20:06)
[2019-08-09] MEDS: Finasteride 5 MG Tab PO SCH (08:54)
[2019-08-09] MEDS: Loratadine 10 MG Tab PO SCH (08:54)
[2019-08-09] MEDS ORDERED: Potassium Chloride 20 MEQ Tab.ER PO ONE (10:09)
[2019-08-09] MEDS: traMADol 50 MG Tab PO PRN ×2 (10:16→18:28)
--- NOTE | 2019-08-09 10:18 | PCM.PN ---
- General Info Date of Service: 08/09/19 - Review of Systems Systems Review Comment:: denies any shortness of breath or fevers, reports burning sharp pain from hips to feet. Pain is chronic but reports increasing intensity in feet today. - Patient Data Vitals - Most Recent: Last Vital Signs Temp 36.9 C 08/09/19 07:30 Pulse 84 08/09/19 07:30 Resp 18 08/09/19 07:30 BP 131/73 08/09/19 07:30 Pulse Ox 92 L 08/09/19 07:30 Weight - Most Recent: 141 kg I&O - Last 24 Hours: Intake & Output 08/08/19 08/09/19 08/09/19 22:59 06:59 14:59 Intake Total 1350 850 Output Total 1700 900 Balance -350 -50 Lab Results Last 24 Hours: Laboratory Results - last 24 hr 08/09/19 08/09/19 08/09/19 Range/Units 05:13 05:13 05:13 WBC 7.65 (4.0-11.0) K/uL RBC 3.93 L (4.50-5.90) M/uL Hgb 11.4 L (13.0-17.0) g/dL Hct 36.3 L (38.0-50.0) % MCV 92.4 (80.0-98.0) fL MCH 29.0 (27.0-32.0) pg MCHC 31.4 (31.0-37.0) g/dL RDW Std Deviation 53.1 (28.0-62.0) fl RDW Coeff of Yanick 16 H (11.0-15.0) % Plt Count 156 (150-400) K/uL MPV 9.80 (7.40-12.00) fL Neut % (Auto) 76.9 (48.0-80.0) % Lymph % (Auto) 10.8 L (16.0-40.0) % [place] % (Auto) 11.9 (0.0-15.0) % Eos % (Auto) 0.3 (0.0-7.0) % Baso % (Auto) 0.1 (0.0-1.5) % Neut # (Auto) 5.9 H (1.4-5.7) K/uL Lymph # (Auto) 0.8 (0.6-2.4) K/uL [place] # (Auto) 0.9 H (0.0-0.8) K/uL Eos # (Auto) 0.0 (0.0-0.7) K/uL Baso # (Auto) 0.0 (0.0-0.1) K/uL Nucleated RBC % 0.0 /100WBC Nucleated RBCs # 0 K/uL Sodium 138 (136-148) mmol/L Potassium 3.4 L (3.5-5.1) mmol/L Chloride 99 (98-107) mmol/L Carbon Dioxide 30.5 (21.0-32.0) mmol/L BUN 27 H (7.0-18.0) mg/dL Creatinine 1.3 (0.8-1.3) mg/dL Est Cr Clr Drug Dosing 51.81 mL/min Estimated GFR (MDRD) 53.0 ml/min Glucose 151 H (74-106) mg/dL Hemoglobin A1c (4.5-6.2) % Calcium 9.3 (8.5-10.1) mg/dL Vancomycin Trough 26.0 H (5.0-10.0) ug/mL 08/09/19 Range/Units 05:13 WBC (4.0-11.0) K/uL RBC (4.50-5.90) M/uL Hgb (13.0-17.0) g/dL Hct (38.0-50.0) % MCV (80.0-98.0) fL MCH (27.0-32.0) pg MCHC (31.0-37.0) g/dL RDW Std Deviation (28.0-62.0) fl RDW Coeff of Yanick (11.0-15.0) % Plt Count (150-400) K/uL MPV (7.40-12.00) fL Neut % (Auto) (48.0-80.0) % Lymph % (Auto) (16.0-40.0) % [place]are % (Auto) (0.0-15.0) % Eos % (Auto) (0.0-7.0) % Baso % (Auto) (0.0-1.5) % Neut # (Auto) (1.4-5.7) K/uL Lymph # (Auto) (0.6-2.4) K/uL Dare # (Auto) (0.0-0.8) K/uL Eos # (Auto) (0.0-0.7) K/uL Baso # (Auto) (0.0-0.1) K/uL Nucleated RBC % /100WBC Nucleated RBCs # K/uL Sodium (136-148) mmol/L Potassium (3.5-5.1) mmol/L Chloride (98-107) mmol/L Carbon Dioxide (21.0-32.0) mmol/L BUN (7.0-18.0) mg/dL Creatinine (0.8-1.3) mg/dL Est Cr Clr Drug Dosing mL/min Estimated GFR (MDRD) ml/min Glucose (74-106) mg/dL Hemoglobin A1c 7.4 H (4.5-6.2) % Calcium (8.5-10.1) mg/dL Vancomycin Trough (5.0-10.0) ug/mL Med Orders - Current: Current Medications Acetaminophen (Tylenol) 325 mg PO Q4H PRN PRN Reason: Pain Last Admin: 08/09/19 07:58 Dose: 325 mg Apixaban (Eliquis) 5 mg PO BID [facility] Last Admin: 08/09/19 08:54 Dose: 5 mg Finasteride (Proscar) 5 mg PO DAILY [facility] Last Admin: 08/09/19 08:54 Dose: 5 mg Furosemide (Lasix) 80 mg IV TID [facility] Last Admin: 08/09/19 05:57 Dose: 80 mg Vancomycin HCl 2 gm/ Sodium (Chloride) 500 mls @ 250 mls/hr IV Q24H [facility] Loratadine (Claritin) 10 mg PO DAILY [facility] Last Admin: 08/09/19 08:54 Dose: 10 mg Metoprolol Tartrate (100 Mg Tab) 1 each PO TID [facility] Last Admin: 08/09/19 05:59 Dose: 1 each Potassium Chloride (10 Meq Tab.Er) 1 each PO TID [facility] Last Admin: 08/09/19 05:59 Dose: 1 each Simvastatin 80 Mg (Tab) 0.5 each PO BEDTIME [facility] Last Admin: 08/08/19 20:26 Dose: 0.5 each Tamsulosin 0.4 Mg (Cap.Er) 2 each PO ACDINNER [facility] Last Admin: 08/08/19 17:24 Dose: 2 each Potassium Chloride (Klor-Con M20) 40 meq PO ONETIME ONE Stop: 08/09/19 10:10 Tramadol HCl (Ultram) 50 mg PO Q8H PRN PRN Reason: Pain Vancomycin HCl (Pharmacy To Dose - Vancomycin) 1 dose .XX ASDIRECTED [facility] Discontinued Medications Furosemide (Lasix) 60 mg IVPUSH NOW ONE Stop: 08/07/19 15:20 Last Admin: 08/07/19 17:01 Dose: 60 mg Piperacillin Sod/Tazobactam (Sod 3.375 gm/ Sodium Chloride) 50 mls @ 100 mls/ hr IV ONETIME ONE Stop: 08/07/19 14:31 Last Admin: 08/07/19 14:20 Dose: 100 mls/hr Vancomycin HCl 2 gm/ Sodium (Chloride) 500 mls @ 250 mls/hr IV Q12H [facility] Last Admin: 08/09/19 06:07 Dose: Not Given [facility]amsulosin [facility]) [facility] Exam General: Alert, Oriented Neck: Supple Lungs: Clear to Auscultation, Normal Respiratory Effort Cardiovascular: Regular Rate, Regular Rhythm Extremities: Non-Tender, Pedal Edema (+3 edema biltaterally, no weeping noted of lower extremities. Erythema of left leg improving) Skin: Warm, Dry, Intact Neurological: No New Focal Deficit Sepsis Event Note - Evaluation Sepsis Screening Result: No Definite Risk - Focused Exam Vital Signs: Vital Signs Temp Pulse Resp BP Pulse Ox 08/09/19 07:30 36.9 C 84 18 131/73 92 L 08/09/19 05:24 36.3 C 91 16 145/64 H 90 L 08/08/19 23:28 35.6 C L 100 18 154/89 H 90 L Date Exam was Performed: 08/09/19 Time Exam was Performed: 10:09 - Problem List Review Problem List Initiated/Reviewed/Updated: Yes - My Orders Last 24 Hours: My Active Orders 08/08/19 15:30 Echo Comp wo Cont [US] Routine 08/08/19 Lunch Fluid Restriction [DIET] 08/09/19 05:11 MAGNESIUM [CHEM] AM 08/09/19 07:41 Acetaminophen [Tylenol] 325 mg PO Q4H PRN 04/15/20 10:07 traMADol [Ultram] 50 mg PO Q8H PRN 08/09/19 10:09 Potassium Chloride [Klor-Con M20] 40 meq PO ONETIME ONE 08/09/19 17:00 Vancomycin 2 gm Sodium Chloride 0.9% [Normal Saline] 500 ml IV Q24H 08/10/19 05:11 BASIC METABOLIC PANEL,BMP [CHEM] AM CBC WITH AUTO DIFF [HEME] AM MAGNESIUM [CHEM] AM - Plan Plan:: 83 yo male admitted with left leg cellulitis and fluid overload likely from CHF. Cellulitis: continue vancomycin Diastolic heart failure: continue lasix TID with fluid restriction. CKD stable, echocardiogram report pending.
[2019-08-09] MEDS ORDERED: oxyCODONE 5 MG Tab PO ONE (12:00)
[2019-08-09] MEDS ORDERED: oxyCODONE 5 MG Tab PO PRN (15:35)
[2019-08-09] MEDS: Tamsulosin 0.4 MG Cap.ER PO SCH (16:37)
[2019-08-09] MEDS ORDERED: Vancomycin 2 GM in Sodium Chloride 0.9% 500 ML IV SCH (17:00)
[2019-08-10 05:25] LABS: POTASSIUM,K 3.8 mmol/L (3.5-5.1)
[2019-08-10] MEDS: Metoprolol Tartrate 100 MG Tab PO SCH ×3 (06:32→21:29)
[2019-08-10] MEDS: Furosemide 40 MG/4 ML VIAL IV SCH ×3 (06:32→21:26)
[2019-08-10] MEDS: Potassium Chloride 10 MEQ Tab.ER PO SCH ×3 (06:32→21:29)
[2019-08-10] MEDS: Loratadine 10 MG Tab PO SCH (09:30)
[2019-08-10] MEDS: Apixaban 5 MG Tab PO SCH ×2 (09:30→21:26)
[2019-08-10] MEDS: Finasteride 5 MG Tab PO SCH (09:31)
[2019-08-10] MEDS: Gabapentin 300 MG Cap PO SCH (09:31)
--- NOTE | 2019-08-10 10:12 | PCM.PN ---
- General Info Date of Service: 08/10/19 - Review of Systems Systems Review Comment:: patient reports pain in the leg from hip to ankle, no fevers - Patient Data Vitals - Most Recent: Last Vital Signs Temp 36.0 C L 08/10/19 03:59 Pulse 96 08/10/19 06:34 Resp 19 08/10/19 03:59 BP 108/67 08/10/19 06:34 Pulse Ox 92 L 08/10/19 03:59 Weight - Most Recent: 141 kg I&O - Last 24 Hours: Intake & Output 08/09/19 08/10/19 08/10/19 22:59 06:59 14:59 Intake Total 1400 800 Output Total 1700 885 Balance -300 -85 Lab Results Last 24 Hours: Laboratory Results - last 24 hr 08/09/19 08/10/19 08/10/19 Range/Units 05:13 05:05 05:05 WBC 10.69 (4.0-11.0) K/uL RBC 3.89 L (4.50-5.90) M/uL Hgb 11.4 L (13.0-17.0) g/dL Hct 36.0 L (38.0-50.0) % MCV 92.5 (80.0-98.0) fL MCH 29.3 (27.0-32.0) pg MCHC 31.7 (31.0-37.0) g/dL RDW Std Deviation 53.7 (28.0-62.0) fl RDW Coeff of Yanick 16 H (11.0-15.0) % Plt Count 170 (150-400) K/uL MPV 9.10 (7.40-12.00) fL Neut % (Auto) 77.8 (48.0-80.0) % Lymph % (Auto) 11.9 L (16.0-40.0) % [place] % (Auto) 9.9 (0.0-15.0) % Eos % (Auto) 0.3 (0.0-7.0) % Baso % (Auto) 0.1 (0.0-1.5) % Neut # (Auto) 8.3 H (1.4-5.7) K/uL Lymph # (Auto) 1.3 (0.6-2.4) K/uL [place] # (Auto) 1.1 H (0.0-0.8) K/uL Eos # (Auto) 0.0 (0.0-0.7) K/uL Baso # (Auto) 0.0 (0.0-0.1) K/uL Nucleated RBC % 0.0 /100WBC Nucleated RBCs # 0 K/uL Sodium 136 (136-148) mmol/L Potassium 3.8 (3.5-5.1) mmol/L Chloride 97 L (98-107) mmol/L Carbon Dioxide 33.0 H (21.0-32.0) mmol/L BUN 28 H (7.0-18.0) mg/dL Creatinine 1.3 (0.8-1.3) mg/dL Est Cr Clr Drug Dosing 51.81 mL/min Estimated GFR (MDRD) 53.0 ml/min Glucose 142 H (74-106) mg/dL Calcium 9.1 (8.5-10.1) mg/dL Magnesium 2.1 (1.8-2.4) mg/dL 08/10/19 Range/Units 05:05 WBC (4.0-11.0) K/uL RBC (4.50-5.90) M/uL Hgb (13.0-17.0) g/dL Hct (38.0-50.0) % MCV (80.0-98.0) fL MCH (27.0-32.0) pg MCHC (31.0-37.0) g/dL RDW Std Deviation (28.0-62.0) fl RDW Coeff of Yanick (11.0-15.0) % Plt Count (150-400) K/uL MPV (7.40-12.00) fL Neut % (Auto) (48.0-80.0) % Lymph % (Auto) (16.0-40.0) % [place] % (Auto) (0.0-15.0) % Eos % (Auto) (0.0-7.0) % Baso % (Auto) (0.0-1.5) % Neut # (Auto) (1.4-5.7) K/uL Lymph # (Auto) (0.6-2.4) K/uL [place] # (Auto) (0.0-0.8) K/uL Eos # (Auto) (0.0-0.7) K/uL Baso # (Auto) (0.0-0.1) K/uL Nucleated RBC % /100WBC Nucleated RBCs # K/uL Sodium (136-148) mmol/L Potassium (3.5-5.1) mmol/L Chloride (98-107) mmol/L Carbon Dioxide (21.0-32.0) mmol/L BUN (7.0-18.0) mg/dL Creatinine (0.8-1.3) mg/dL Est Cr Clr Drug Dosing mL/min Estimated GFR (MDRD) ml/min Glucose (74-106) mg/dL Calcium (8.5-10.1) mg/dL Magnesium 2.0 (1.8-2.4) mg/dL Med Orders - Current: Current Medications Acetaminophen (Tylenol) 325 mg PO Q4H PRN PRN Reason: Pain Last Admin: 08/09/19 07:58 Dose: 325 mg Apixaban (Eliquis) 5 mg PO BID [facility] Last Admin: 08/10/19 09:30 Dose: 5 mg Cephalexin (Keflex) 500 mg PO Q6HR [facility] Finasteride (Proscar) 5 mg PO DAILY [facility] Last Admin: 08/10/19 09:31 Dose: 5 mg Furosemide (Lasix) 80 mg IV TID [facility] Last Admin: 08/10/19 06:32 Dose: 80 mg Gabapentin (Neurontin) 300 mg PO DAILY [facility] Last Admin: 08/10/19 09:31 Dose: 300 mg Loratadine (Claritin) 10 mg PO DAILY [facility] Last Admin: 08/10/19 09:30 Dose: 10 mg Metoprolol Tartrate (100 Mg Tab) 1 each PO TID [facility] Last Admin: 08/10/19 06:32 Dose: 1 each Potassium Chloride (10 Meq Tab.Er) 1 each PO TID [facility] Last Admin: 08/10/19 06:32 Dose: 1 each Simvastatin 80 Mg (Tab) 0.5 each PO BEDTIME [facility] Last Admin: 08/09/19 20:05 Dose: 0.5 each Tamsulosin 0.4 Mg (Cap.Er) 2 each PO ACDINNER [facility] Last Admin: 08/09/19 16:37 Dose: 2 each Tramadol HCl (Ultram) 50 mg PO Q6H PRN PRN Reason: Pain Discontinued Medications Furosemide (Lasix) 60 mg IVPUSH NOW ONE Stop: 08/07/19 15:20 Last Admin: 08/07/19 17:01 Dose: 60 mg Piperacillin Sod/Tazobactam (Sod 3.375 gm/ Sodium Chloride) 50 mls @ 100 mls/ hr IV ONETIME ONE Stop: 08/07/19 14:31 Last Admin: 08/07/19 14:20 Dose: 100 mls/hr Vancomycin HCl 2 gm/ Sodium (Chloride) 500 mls @ 250 mls/hr IV Q12H [facility] Last Admin: 08/09/19 06:07 Dose: Not Given Vancomycin HCl 2 gm/ Sodium (Chloride) 500 mls @ 250 mls/hr IV Q24H [facility] Last Admin: 08/09/19 16:37 Dose: 250 mls/hr Oxycodone HCl (Oxycodone) 5 mg PO ONETIME ONE Stop: 08/09/19 12:01 Last Admin: 08/09/19 12:10 Dose: 5 mg Oxycodone HCl (Oxycodone) 5 mg PO Q8H PRN PRN Reason: Pain Last Admin: 08/09/19 20:06 Dose: 5 mg Potassium Chloride (Klor-Con M20) 40 meq PO ONETIME ONE Stop: 08/09/19 10:10 Last Admin: 08/09/19 10:18 Dose: 40 meq [facility] Tramadol HCl (Ultram) 50 mg PO Q8H PRN PRN Reason: Pain Last Admin: 08/09/19 18:28 Dose: 50 mg Vancomycin HCl (Pharmacy To Dose - Vancomycin) 1 dose .XX ASDIRECTED [facility] - Exam General: Alert, Oriented Neck: Supple GI/Abdominal Exam: Normal Bowel Sounds, Soft, Non-Tender Extremities: Other (+2 edema of legs bilaterally, erythema and edema of left leg is improving) Sepsis Event Note - Evaluation Sepsis Screening Result: No Definite Risk - Focused Exam Vital Signs: Vital Signs Temp Pulse Resp BP Pulse Ox 08/10/19 06:34 96 108/67 08/10/19 03:59 36.0 C L 90 19 104/55 L 92 L 08/10/19 00:32 85 105/55 L 08/09/19 23:03 36.3 C 91 18 103/59 L 92 L Date Exam was Performed: 08/10/19 Time Exam was Performed: 10:09 - Problem List Review Problem List Initiated/Reviewed/Updated: Yes - My Orders Last 24 Hours: My Active Orders 08/10/19 09:28 Accu Check [Blood Glucose Check, Bedside] [RC] TIDMEALS traMADol [Ultram] 50 mg PO Q6H PRN 08/10/19 12:00 cephALEXin [Keflex] 500 mg PO Q6HR 08/11/19 05:11 BASIC METABOLIC PANEL,BMP [CHEM] AM CBC WITH AUTO DIFF [HEME] AM MAGNESIUM [CHEM] AM PHOSPHORUS [CHEM] AM - Plan Plan:: 83 yo male admitted with left leg cellulitis and fluid overload likely from CHF. Cellulitis: improving, will switch to PO medications to reduce fluid intake Diastolic heart failure: continue lasix TID with fluid restriction. CKD stable, echocardiogram report is non diagnositic study due to limited image quality. bilateral diffuse leg pain: suspect neuropathic pain, will start gabapentin Dispo: PT consulted, may need rehab services, home health vs SNF
[2019-08-10] MEDS: Cephalexin 500 MG Cap PO SCH ×2 (12:12→17:36)
[2019-08-10] MEDS: traMADol 50 MG Tab PO PRN ×2 (12:14→19:46)
--- NOTE | 2019-08-10 16:25 | ECHO ---
EXAM DATE: 08/08/19 PATIENT'S AGE: 83 The echocardiogram report can be seen in this patient's EMR (Electronic Medical Record) in the REPORTS section. The report has also been scanned into PACS. RENÉE
[2019-08-10] MEDS: Tamsulosin 0.4 MG Cap.ER PO SCH (17:36)
[2019-08-10] MEDS: Insulin Aspart 100 Units/ML 3 ML Pen SUBCUT SCH (17:38)
[2019-08-11] MEDS: Cephalexin 500 MG Cap PO SCH ×5 (00:48→23:12)
[2019-08-11] MEDS: Acetaminophen 325 MG Tab PO PRN (00:48)
[2019-08-11] MEDS: traMADol 50 MG Tab PO PRN (05:47)
[2019-08-11] MEDS: Potassium Chloride 10 MEQ Tab.ER PO SCH ×3 (05:52→21:53)
[2019-08-11] MEDS: Metoprolol Tartrate 100 MG Tab PO SCH ×3 (05:58→22:22)
[2019-08-11 06:07] LABS: CARBON DIOXIDE,CO2 31.3 mmol/L (21.0-32.0); POTASSIUM,K 3.6 mmol/L (3.5-5.1)
[2019-08-11] MEDS: Furosemide 40 MG/4 ML VIAL IV SCH ×3 (06:36→21:47)
--- NOTE | 2019-08-11 06:53 | PCM.PN ---
- General Info Date of Service: 08/11/19 - Review of Systems Systems Review Comment:: patient reports improvement in leg pain - Patient Data Vitals - Most Recent: Last Vital Signs Temp 36.5 C 08/11/19 04:09 Pulse 67 08/11/19 05:56 Resp 18 08/11/19 04:09 BP 100/62 08/11/19 05:56 Pulse Ox 93 L 08/11/19 04:09 Weight - Most Recent: 142.5 kg I&O - Last 24 Hours: Intake & Output 08/10/19 08/10/19 08/11/19 14:59 22:59 06:59 Intake Total 600 550 Output Total 730 1150 Balance -130 -600 Lab Results Last 24 Hours: Laboratory Results - last 24 hr 08/10/19 08/10/19 08/11/19 Range/Units 12:01 17:37 05:33 WBC 7.20 (4.0-11.0) K/uL RBC 3.69 L (4.50-5.90) M/uL Hgb 10.8 L (13.0-17.0) g/dL Hct 33.8 L (38.0-50.0) % MCV 91.6 (80.0-98.0) fL MCH 29.3 (27.0-32.0) pg MCHC 32.0 (31.0-37.0) g/dL RDW Std Deviation 53.0 (28.0-62.0) fl RDW Coeff of [place] 16 H (11.0-15.0) % Plt Count 171 (150-400) K/uL MPV 9.20 (7.40-12.00) fL Neut % (Auto) 76.2 (48.0-80.0) % Lymph % (Auto) 13.2 L (16.0-40.0) % [place] % (Auto) 9.9 (0.0-15.0) % Eos % (Auto) 0.6 (0.0-7.0) % Baso % (Auto) 0.1 (0.0-1.5) % Neut # (Auto) 5.5 (1.4-5.7) K/uL Lymph # (Auto) 1.0 (0.6-2.4) K/uL [place] # (Auto) 0.7 (0.0-0.8) K/uL Eos # (Auto) 0.0 (0.0-0.7) K/uL Baso # (Auto) 0.0 (0.0-0.1) K/uL Nucleated RBC % 0.0 /100WBC Nucleated RBCs # 0 K/uL Sodium (136-148) mmol/L Potassium (3.5-5.1) mmol/L Chloride (98-107) mmol/L Carbon Dioxide (21.0-32.0) mmol/L BUN (7.0-18.0) mg/dL Creatinine (0.8-1.3) mg/dL Est Cr Clr Drug Dosing mL/min Estimated GFR (MDRD) ml/min Glucose (74-106) mg/dL POC Glucose 144 H 131 H (60-110) mg/dL Calcium (8.5-10.1) mg/dL Phosphorus (2.6-4.7) mg/dL Magnesium (1.8-2.4) mg/dL 08/11/19 08/11/19 Range/Units 05:33 06:07 WBC (4.0-11.0) K/uL RBC (4.50-5.90) M/uL Hgb (13.0-17.0) g/dL Hct (38.0-50.0) % MCV (80.0-98.0) fL MCH (27.0-32.0) pg MCHC (31.0-37.0) g/dL RDW Std Deviation (28.0-62.0) fl RDW Coeff of [place] (11.0-15.0) % Plt Count (150-400) K/uL MPV (7.40-12.00) fL Neut % (Auto) (48.0-80.0) % Lymph % (Auto) (16.0-40.0) % [place] % (Auto) (0.0-15.0) % Eos % (Auto) (0.0-7.0) % Baso % (Auto) (0.0-1.5) % Neut # (Auto) (1.4-5.7) K/uL Lymph # (Auto) (0.6-2.4) K/uL [place] # (Auto) (0.0-0.8) K/uL Eos # (Auto) (0.0-0.7) K/uL Baso # (Auto) (0.0-0.1) K/uL Nucleated RBC % /100WBC Nucleated RBCs # K/uL Sodium 136 (136-148) mmol/L Potassium 3.6 (3.5-5.1) mmol/L Chloride 98 (98-107) mmol/L Carbon Dioxide 31.3 (21.0-32.0) mmol/L BUN 30 H (7.0-18.0) mg/dL Creatinine 1.3 (0.8-1.3) mg/dL Est Cr Clr Drug Dosing 51.81 mL/min Estimated GFR (MDRD) 53.0 ml/min Glucose 117 H (74-106) mg/dL POC Glucose 112 H (60-110) mg/dL Calcium 8.4 L (8.5-10.1) mg/dL Phosphorus 3.7 (2.6-4.7) mg/dL Magnesium 1.8 (1.8-2.4) mg/dL Med Orders - Current: Current Medications Acetaminophen (Tylenol) 325 mg PO Q4H PRN PRN Reason: Pain Last Admin: 08/11/19 00:48 Dose: 325 mg Apixaban (Eliquis) 5 mg PO BID [facility] Last Admin: 08/10/19 21:26 Dose: 5 mg Cephalexin (Keflex) 500 mg PO Q6HR [facility] Last Admin: 08/11/19 05:47 Dose: 500 mg Finasteride (Proscar) 5 mg PO DAILY [facility] Last Admin: 08/10/19 09:31 Dose: 5 mg Furosemide (Lasix) 80 mg IV TID [facility] Last Admin: 08/11/19 06:36 Dose: 80 mg Gabapentin (Neurontin) 300 mg PO DAILY [facility] Last Admin: 08/10/19 09:31 Dose: 300 mg Insulin Aspart (Novolog) 0 unit SUBCUT TIDAC [facility]; Protocol Last Admin: 08/10/19 17:38 Dose: Not Given Loratadine (Claritin) 10 mg PO DAILY [facility] Last Admin: 08/10/19 09:30 Dose: 10 mg Metoprolol Tartrate (100 Mg Tab) 1 each PO TID [facility] Last Admin: 08/11/19 05:58 Dose: 1 each Potassium Chloride (10 Meq Tab.Er) 1 each PO TID [facility] Last Admin: 08/11/19 05:52 Dose: 1 each Simvastatin 80 Mg (Tab) 0.5 each PO BEDTIME [facility] Last Admin: 08/10/19 21:29 Dose: 0.5 each Tamsulosin 0.4 Mg (Cap.Er) 2 each PO ACDINNER [facility] Last Admin: 08/10/19 17:36 Dose: 2 each Tramadol HCl (Ultram) 50 mg PO Q6H PRN PRN Reason: Pain Last Admin: 08/11/19 05:47 Dose: 50 mg Discontinued Medications Furosemide (Lasix) 60 mg IVPUSH NOW ONE Stop: 08/07/19 15:20 Last Admin: 08/07/19 17:01 Dose: 60 mg Piperacillin Sod/Tazobactam (Sod 3.375 gm/ Sodium Chloride) 50 mls @ 100 mls/ hr IV ONETIME ONE Stop: 08/07/19 14:31 Last Admin: 08/07/19 14:20 Dose: 100 mls/hr Vancomycin HCl 2 gm/ Sodium (Chloride) 500 mls @ 250 mls/hr IV Q12H [facility] Last Admin: 08/09/19 06:07 Dose: Not Given Vancomycin HCl 2 gm/ Sodium (Chloride) 500 mls @ 250 mls/hr IV Q24H [facility] Last Admin: 08/09/19 16:37 Dose: 250 mls/hr Oxycodone HCl (Oxycodone) 5 mg PO ONETIME ONE Stop: 08/09/19 12:01 Last Admin: 08/09/19 12:10 Dose: 5 mg Oxycodone HCl (Oxycodone) 5 mg PO Q8H PRN PRN Reason: Pain Last Admin: 08/09/19 20:06 Dose: 5 mg Potassium Chloride (Klor-Con M20) 40 meq PO ONETIME ONE Stop: 08/09/19 10:10 Last Admin: 08/09/19 10:18 Dose: 40 meq Tamsulosin HCl (Flomax) 0.8 mg PO ACDINNER [facility] Tramadol HCl (Ultram) 50 mg PO Q8H PRN PRN Reason: Pain Last Admin: 08/09/19 18:28 Dose: 50 mg Vancomycin HCl (Pharmacy To Dose - Vancomycin) 1 dose .XX ASDIRECTED [facility] - Exam General: Alert, Oriented Lungs: Clear to Auscultation, Normal Respiratory Effort Cardiovascular: Regular Rate, Regular Rhythm GI/Abdominal Exam: Normal Bowel Sounds, Soft, Non-Tender Extremities: Other (+2 edema bilateraly, improvement in edema and swelling of left leg) Sepsis Event Note - Evaluation Sepsis Screening Result: No Definite Risk - Focused Exam Vital Signs: Vital Signs Temp Pulse Resp BP BP Pulse Ox 08/11/19 05:56 67 100/62 08/11/19 04:09 36.5 C 79 18 122/69 93 L 08/11/19 00:35 36.7 C 82 17 111/57 L 93 L 08/10/19 21:24 94 120/64 08/10/19 19:30 36.7 C 92 18 115/59 L 94 L Date Exam was Performed: 08/11/19 Time Exam was Performed: 06:50 - Problem List Review Problem List Initiated/Reviewed/Updated: Yes - My Orders Last 24 Hours: My Active Orders 08/10/19 09:28 Accu Check [Blood Glucose Check, Bedside] [RC] TIDMEALS traMADol [Ultram] 50 mg PO Q6H PRN 08/10/19 12:00 cephALEXin [Keflex] 500 mg PO Q6HR 08/12/19 05:11 BASIC METABOLIC PANEL,BMP [CHEM] AM CBC WITH AUTO DIFF [HEME] AM - Plan Plan:: 83 yo male admitted with left leg cellulitis and fluid overload likely from CHF. Cellulitis: continue Keflex Diastolic heart failure: continue lasix TID with fluid restriction. CKD stable, echocardiogram report is nondiagnostic study due to limited image quality. bilateral diffuse leg pain: suspect neuropathic pain, started gabapentin Dispo: PT recommended rehab placement. Patient agrees to [facility] placement, likely on Wednesday.
[2019-08-11] MEDS: Insulin Aspart 100 Units/ML 3 ML Pen SUBCUT SCH ×3 (07:25→18:36)
[2019-08-11] MEDS: Loratadine 10 MG Tab PO SCH (09:11)
[2019-08-11] MEDS: Apixaban 5 MG Tab PO SCH ×2 (09:11→20:21)
[2019-08-11] MEDS: Gabapentin 300 MG Cap PO SCH (09:11)
[2019-08-11] MEDS: Finasteride 5 MG Tab PO SCH (09:11)
[2019-08-11] MEDS: Tamsulosin 0.4 MG Cap.ER PO SCH (17:25)
[2019-08-12 05:41] LABS: CARBON DIOXIDE,CO2 31.6 mmol/L (21.0-32.0); POTASSIUM,K 3.5 mmol/L (3.5-5.1)
[2019-08-12] MEDS: Furosemide 40 MG/4 ML VIAL IV SCH (06:14)
[2019-08-12] MEDS: Cephalexin 500 MG Cap PO SCH ×4 (06:17→21:23)
[2019-08-12] MEDS: Potassium Chloride 10 MEQ Tab.ER PO SCH ×3 (06:20→21:22)
[2019-08-12] MEDS: Metoprolol Tartrate 100 MG Tab PO SCH ×3 (06:56→21:21)
--- NOTE | 2019-08-12 08:30 | PCM.PN ---
- General Info Date of Service: 08/12/19 - Review of Systems Systems Review Comment:: patient reported bladder fullness this morning with difficulty urinating, bladder scan showed 999ml, straight cath with 1000ml output - Patient Data Vitals - Most Recent: Last Vital Signs Temp 37 C 08/12/19 06:56 Pulse 81 08/12/19 06:56 Resp 16 08/12/19 06:56 BP 133/71 08/12/19 06:56 Pulse Ox 95 08/12/19 06:56 Weight - Most Recent: 138.799 kg I&O - Last 24 Hours: Intake & Output 08/11/19 08/12/19 08/12/19 22:59 06:59 14:59 Intake Total 450 120 Output Total 660 Balance -210 120 Lab Results Last 24 Hours: Laboratory Results - last 24 hr 08/11/19 08/11/19 08/12/19 Range/Units 12:01 17:15 05:12 WBC 6.43 (4.0-11.0) K/uL RBC 3.76 L (4.50-5.90) M/uL Hgb 10.9 L (13.0-17.0) g/dL Hct 34.2 L (38.0-50.0) % MCV 91.0 (80.0-98.0) fL MCH 29.0 (27.0-32.0) pg MCHC 31.9 (31.0-37.0) g/dL RDW Std Deviation 52.1 (28.0-62.0) fl RDW Coeff of [place] 16 H (11.0-15.0) % Plt Count 195 (150-400) K/uL MPV 9.20 (7.40-12.00) fL Neut % (Auto) 78.5 (48.0-80.0) % Lymph % (Auto) 12.4 L (16.0-40.0) % [place] % (Auto) 8.1 (0.0-15.0) % Eos % (Auto) 0.8 (0.0-7.0) % Baso % (Auto) 0.2 (0.0-1.5) % Neut # (Auto) 5.1 (1.4-5.7) K/uL Lymph # (Auto) 0.8 (0.6-2.4) K/uL [place] # (Auto) 0.5 (0.0-0.8) K/uL Eos # (Auto) 0.1 (0.0-0.7) K/uL Baso # (Auto) 0.0 (0.0-0.1) K/uL Nucleated RBC % 0.0 /100WBC Nucleated RBCs # 0 K/uL Sodium (136-148) mmol/L Potassium (3.5-5.1) mmol/L Chloride (98-107) mmol/L Carbon Dioxide (21.0-32.0) mmol/L BUN (7.0-18.0) mg/dL Creatinine (0.8-1.3) mg/dL Est Cr Clr Drug Dosing mL/min Estimated GFR (MDRD) ml/min Glucose (74-106) mg/dL POC Glucose 149 H 147 H (60-110) mg/dL Calcium (8.5-10.1) mg/dL 08/12/19 08/12/19 Range/Units 05:12 06:22 WBC (4.0-11.0) K/uL RBC (4.50-5.90) M/uL Hgb (13.0-17.0) g/dL Hct (38.0-50.0) % MCV (80.0-98.0) fL MCH (27.0-32.0) pg MCHC (31.0-37.0) g/dL RDW Std Deviation (28.0-62.0) fl RDW Coeff of [place] (11.0-15.0) % Plt Count (150-400) K/uL MPV (7.40-12.00) fL Neut % (Auto) (48.0-80.0) % Lymph % (Auto) (16.0-40.0) % [place] % (Auto) (0.0-15.0) % Eos % (Auto) (0.0-7.0) % Baso % (Auto) (0.0-1.5) % Neut # (Auto) (1.4-5.7) K/uL Lymph # (Auto) (0.6-2.4) K/uL [place] # (Auto) (0.0-0.8) K/uL Eos # (Auto) (0.0-0.7) K/uL Baso # (Auto) (0.0-0.1) K/uL Nucleated RBC % /100WBC Nucleated RBCs # K/uL Sodium 137 (136-148) mmol/L Potassium 3.5 (3.5-5.1) mmol/L Chloride 98 (98-107) mmol/L Carbon Dioxide 31.6 (21.0-32.0) mmol/L BUN 28 H (7.0-18.0) mg/dL Creatinine 1.3 (0.8-1.3) mg/dL Est Cr Clr Drug Dosing 51.81 mL/min Estimated GFR (MDRD) 53.0 ml/min Glucose 133 H (74-106) mg/dL POC Glucose 124 H (60-110) mg/dL Calcium 8.6 (8.5-10.1) mg/dL Med Orders - Current: Current Medications Acetaminophen (Tylenol) 325 mg PO Q4H PRN PRN Reason: Pain Last Admin: 08/11/19 00:48 Dose: 325 mg Apixaban (Eliquis) 5 mg PO BID [facility] Last Admin: 08/11/19 20:21 Dose: 5 mg Cephalexin (Keflex) 500 mg PO Q6HR [facility] Last Admin: 08/12/19 06:17 Dose: 500 mg Finasteride (Proscar) 5 mg PO DAILY [facility] Last Admin: 08/11/19 09:11 Dose: 5 mg Furosemide (Lasix) 80 mg IV TID [facility] Last Admin: 08/12/19 06:14 Dose: 80 mg Gabapentin (Neurontin) 300 mg PO DAILY [facility] Last Admin: 08/11/19 09:11 Dose: 300 mg Insulin Aspart (Novolog) 0 unit SUBCUT TIDAC [facility]; Protocol Last Admin: 08/11/19 18:36 Dose: Not Given Loratadine (Claritin) 10 mg PO DAILY [facility] Last Admin: 08/11/19 09:11 Dose: 10 mg Metoprolol Tartrate (100 Mg Tab) 1 each PO TID [facility] Last Admin: 08/12/19 06:56 Dose: 1 each Potassium Chloride (10 Meq Tab.Er) 1 each PO TID [facility] Last Admin: 08/12/19 06:20 Dose: 1 each Simvastatin 80 Mg (Tab) 0.5 each PO BEDTIME [facility] Last Admin: 08/11/19 20:22 Dose: 0.5 each Tamsulosin 0.4 Mg (Cap.Er) 2 each PO ACDINNER [facility] Last Admin: 08/11/19 17:25 Dose: 2 each Tramadol HCl (Ultram) 50 mg PO Q6H PRN PRN Reason: Pain Last Admin: 08/11/19 05:47 Dose: 50 mg Discontinued Medications Furosemide (Lasix) 60 mg IVPUSH NOW ONE Stop: 08/07/19 15:20 Last Admin: 08/07/19 17:01 Dose: 60 mg Piperacillin Sod/Tazobactam (Sod 3.375 gm/ Sodium Chloride) 50 mls @ 100 mls/ hr IV ONETIME ONE Stop: 08/07/19 14:31 Last Admin: 08/07/19 14:20 Dose: 100 mls/hr Vancomycin HCl 2 gm/ Sodium (Chloride) 500 mls @ 250 mls/hr IV Q12H [facility] Last Admin: 08/09/19 06:07 Dose: Not Given Vancomycin HCl 2 gm/ Sodium (Chloride) 500 mls @ 250 mls/hr IV Q24H [facility] Last Admin: 08/09/19 16:37 Dose: 250 mls/hr Oxycodone HCl (Oxycodone) 5 mg PO ONETIME ONE Stop: 08/09/19 12:01 Last Admin: 08/09/19 12:10 Dose: 5 mg Oxycodone HCl (Oxycodone) 5 mg PO Q8H PRN PRN Reason: Pain Last Admin: 08/09/19 20:06 Dose: 5 mg Potassium Chloride (Klor-Con M20) 40 meq PO ONETIME ONE Stop: 08/09/19 10:10 Last Admin: 08/09/19 10:18 Dose: 40 meq Tamsulosin HCl (Flomax) 0.8 mg PO ACDINNER [facility] Tramadol HCl (Ultram) 50 mg PO Q8H PRN PRN Reason: Pain Last Admin: 08/09/19 18:28 Dose: 50 mg Vancomycin HCl (Pharmacy To Dose - Vancomycin) 1 dose .XX ASDIRECTED [facility] - Exam General: Alert, Oriented HEENT: Mucous Membr. Moist/[place] Neck: Supple Lungs: Clear to Auscultation, Normal Respiratory Effort Cardiovascular: Regular Rate, Regular Rhythm GI/Abdominal Exam: Soft, Non-Tender, No Distention Extremities: Other (+1 edema bilaterally with skin wrinkling, erythema of left leg resolving) Sepsis Event Note - Evaluation Sepsis Screening Result: No Definite Risk - Focused Exam Vital Signs: Vital Signs Temp Pulse Resp BP Pulse Ox 08/12/19 06:56 37 C 81 16 133/71 95 08/12/19 04:00 36.5 C 85 18 114/80 93 L 08/12/19 00:16 36.1 C 81 18 116/58 L 93 L 08/11/19 23:11 37.2 C 92 18 110/59 L 92 L 08/11/19 22:24 16 107/57 L 92 L Date Exam was Performed: 08/12/19 Time Exam was Performed: 08:27 - Problem List Review Problem List Initiated/Reviewed/Updated: Yes - My Orders Last 24 Hours: My Active Orders 08/12/19 07:09 Communication Order [RC] STAT 08/12/19 08:17 UA RFX JOSE ARMANDO AND CULT IF INDIC [URIN] Routine 08/12/19 13:00 Bladder Scan [RC] Q6H 08/13/19 05:11 BASIC METABOLIC PANEL,BMP [CHEM] AM CBC WITH AUTO DIFF [HEME] AM - Plan Plan:: 83 yo male admitted with left leg cellulitis and fluid overload likely from CHF. Cellulitis: continue Keflex, leg edema has improved greatly with diuresis Diastolic heart failure: continue lasix TID with fluid restriction. CKD stable, echocardiogram report is nondiagnostic study due to limited image quality. bilateral diffuse leg pain: suspect neuropathic pain, started gabapentin Dispo: PT recommended rehab placement. Patient agrees to [facility] placement, likely on Wednesday.
[2019-08-12] MEDS: Insulin Aspart 100 Units/ML 3 ML Pen SUBCUT SCH ×3 (08:41→18:20)
[2019-08-12] MEDS: Apixaban 5 MG Tab PO SCH ×2 (08:55→21:21)
[2019-08-12] MEDS: Gabapentin 300 MG Cap PO SCH (08:55)
[2019-08-12] MEDS: Loratadine 10 MG Tab PO SCH (08:55)
[2019-08-12] MEDS: Finasteride 5 MG Tab PO SCH (08:55)
[2019-08-12 14:22] LABS: POTASSIUM,K 3.6 mmol/L (3.5-5.1)
--- NOTE | 2019-08-12 14:31 | CR ---
INDICATION: Altered mental status and low oxygen saturation. TECHNIQUE: Chest 1 view. COMPARISON: Chest radiograph 08/07/2019. FINDINGS: The cardiomediastinal silhouette size is normal. There are atherosclerotic calcifications of the aortic arch. Low lung volumes. Right basilar opacities are re-demonstrated and have increased slightly. No large pleural effusion or pneumothorax. Status post median sternotomy. The visualized osseous structures are unremarkable for age. Surgical clips project over the soft tissues of the right neck. Impression: Low lung volumes with increased right basilar opacities. Infection is not excluded. Dictated by Nimisha Mcneil MD @ Aug 12 2019 2:26PM Signed by Dr. Nimisha Mcneil @ Aug 12 2019 2:30PM
--- NOTE | 2019-08-12 15:09 | PN ---
THC Physician - Brief Progress [id number]/2020 14:48[facility] CenterPrabhakar sanchez, BRINA - HAMILTONN (YOLANDEN) - AWA CARMEN VOGTDate of Service 08/12/2019 14:48HPI/Events of Note eICU admission [id number] male with past history of HTN, CAD, CHF and A. fib on anticoag ulation who presented to the hospital with left leg swelling and erythema. Patient was found to have cellulitis and started on vancomycin initially on 08/07/2019. Patient was subsequently de-escalated to Keflex during the course of this admission. Patient also was found to have CHF exacerbation given his volume overload state and started on Lasix 3 times daily with fluid restriction. Patient subseq uently noted to have decreased urine output and bladder scan revealed greater than 1 L retained and p atient was also found to be in respiratory distress thus transferred to the ICU for closer monitoring .Patient seen on camera, laying flat in bed, no acute distress, on nasal cannulaVital signs reviewedL abs/EMR/imaging reviewedCHF exacerbation-Recommend continuing with aggressive Lasix regimen with clos e monitoring of I's and O's and daily weights. Recommend liu placement. -If patient continues to sepulveda ve respiratory distress recommend starting BiPAP therapy.-If patient has blood pressure on the lower end recommend switching to Lasix gtt. at that time. If bicarb continues to uptrend can consider givin g acetazolamide at that time instead of lasix dose. -Will need to find dry weight for patient. -Curre ntly low concern for ongoing PNA as patient remains afebrile, normal white count and stable hypoxia. Cellulitis-Continue patient on Keflex currently does not seem to have any worsening infectious proces s.-Recommend demarcating area with cellulitis to see improvementA. fib-Agree with continuing anticoag ulation with apixaban-Recommend close monitoring of electrolytes given diuresis. Recommend K>4 and M g>2DVT prophy- anticoagulatedGI prophy- not indicatedInterventions Major-Arrhythmia - evaluation and management, Hypoxemia - evaluation and management, Infection - evaluation and management, Other: [facility] lectronically Signed by: JAIR ISSA) on 08/12/2019 15:08
--- NOTE | 2019-08-12 15:44 | CT ---
INDICATION: Altered mental status. TECHNIQUE: CT scan of the brain was performed without contrast. COMPARISON: No comparison. FINDINGS: Extra-axial spaces: Mildly prominent. No extra-axial hemorrhage. Ventricles: Mildly prominent. No midline shift. Brain: No intra-axial hemorrhage. No intracranial mass. Diffuse decreased attenuation in the periventricular white matter. Atherosclerotic intracranial vascular calcification. Bony calvarium: No significant abnormalities. IMPRESSION: 1. No hemorrhage or intracranial acute radiographic abnormality. 2. Chronic changes suggesting cerebral volume loss and probable chronic ischemic microvascular decreased attenuation in the central white matter. Please note that all CT scans at this facility use dose modulation, iterative reconstruction, and/or weight-based dosing when appropriate to reduce radiation dose to as low as reasonably achievable. Dictated by Chuck Campos MD @ Aug 12 2019 3:42PM Signed by Dr. Chuck Campos @ Aug 12 2019 3:42PM
--- NOTE | 2019-08-12 16:31 | PCM.SN ---
- Free Text/Narrative Note: Patient had a rapid response called this afternoon when he was noted by nursing to be apnic, blue in face and satting 70%. He was sitting in his chair and was minimally responsive. After several minutes of trying to wake him he did start responding, and became alert. His oxygenation improved as did his color. Patient denied any shortness of breath or dizziness just that he fell asleep in his chair. CXR, EKG and CT head were unremarkable. Patient does use CPAP at night. Instructed nursing to use CPAP during naps. Bladder scan shows [address] liu catheter. Will stop gabapentin and tramadol. TeleHealth - TeleHealth Patient Service Facility: [facility]: [facility] Informed Consent: Telemedicine Audio/Visual Informed Consent: The risks, benefits, and alternatives to the telehealth visit were explained to the patient and the patient consented to this modality of care. The telehealth visit was carried out via a secure, web-based conferencing system. This telemedicine service was a real-time, two-way interactive video and communication between the patient and the provider. All the parties involved were identified and approved by the patient prior to the visit. Any physical exam was assisted by the patient. Unless noted otherwise, the provider was located at their usual clinic location , and the patient was at their place of residence. Patient identity was confirmed by having the patient state their name and date of . All communications with the patient (verbal, audiovisual, and written) were documented in the patients medical record per documentation standards.
[2019-08-12] MEDS: Tamsulosin 0.4 MG Cap.ER PO SCH (18:16)
[2019-08-13] MEDS: Cephalexin 500 MG Cap PO SCH ×4 (04:02→22:51)
[2019-08-13] MEDS: Metoprolol Tartrate 100 MG Tab PO SCH ×3 (06:14→22:51)
[2019-08-13] MEDS: Potassium Chloride 10 MEQ Tab.ER PO SCH ×3 (06:14→22:51)
[2019-08-13 06:22] LABS: CARBON DIOXIDE,CO2 34.9 mmol/L (21.0-32.0); POTASSIUM,K 3.6 mmol/L (3.5-5.1)
[2019-08-13] MEDS: Insulin Aspart 100 Units/ML 3 ML Pen SUBCUT SCH ×3 (07:44→18:26)
[2019-08-13] MEDS: Finasteride 5 MG Tab PO SCH (08:42)
[2019-08-13] MEDS: Loratadine 10 MG Tab PO SCH (08:42)
[2019-08-13] MEDS: Apixaban 5 MG Tab PO SCH ×2 (08:42→20:22)
--- NOTE | 2019-08-13 09:06 | PCM.PN ---
- General Info Date of Service: 08/13/19 - Review of Systems Systems Review Comment:: patient denies any shortness of breath or fevers - Patient Data Vitals - Most Recent: Last Vital Signs Temp 36.5 C 08/13/19 04:00 Pulse 81 08/12/19 13:08 Resp 14 08/13/19 07:00 BP 101/48 L 08/13/19 07:00 Pulse Ox 95 08/13/19 07:00 Weight - Most Recent: 139.298 kg I&O - Last 24 Hours: Intake & Output 08/12/19 08/13/19 08/13/19 22:59 06:59 14:59 Intake Total 400 350 Output Total 750 780 Balance -350 -430 Lab Results Last 24 Hours: Laboratory Results - last 24 hr 08/10/19 08/12/19 08/12/19 Range/Units 15:55 08:35 12:58 WBC (4.0-11.0) K/uL RBC (4.50-5.90) M/uL Hgb (13.0-17.0) g/dL Hct (38.0-50.0) % MCV (80.0-98.0) fL MCH (27.0-32.0) pg MCHC (31.0-37.0) g/dL RDW Std Deviation (28.0-62.0) fl RDW Coeff of Yanick (11.0-15.0) % Plt Count (150-400) K/uL MPV (7.40-12.00) fL Neut % (Auto) (48.0-80.0) % Lymph % (Auto) (16.0-40.0) % [place] % (Auto) (0.0-15.0) % Eos % (Auto) (0.0-7.0) % Baso % (Auto) (0.0-1.5) % Neut # (Auto) (1.4-5.7) K/uL Lymph # (Auto) (0.6-2.4) K/uL [place] # (Auto) (0.0-0.8) K/uL Eos # (Auto) (0.0-0.7) K/uL Baso # (Auto) (0.0-0.1) K/uL Nucleated RBC % /100WBC Nucleated RBCs # K/uL ABG pH (7.35-7.45) ABG pCO2 (35-45) mmHG ABG pO2 (75-100) mmHG ABG HCO3 (22-26) mEq/L ABG Total CO2 ABG Base Excess (-2.0-2.0) Sodium (136-148) mmol/L Potassium (3.5-5.1) mmol/L Chloride (98-107) mmol/L Carbon Dioxide (21.0-32.0) mmol/L BUN (7.0-18.0) mg/dL Creatinine (0.8-1.3) mg/dL Est Cr Clr Drug Dosing mL/min Estimated GFR (MDRD) ml/min Glucose (74-106) mg/dL POC Glucose 123 H 137 H (60-110) mg/dL Calcium (8.5-10.1) mg/dL Magnesium (1.8-2.4) mg/dL Total Bilirubin (0.2-1.0) mg/dL AST (15-37) IU/L ALT (14-63) IU/L Alkaline Phosphatase (46-116) U/L Total Protein (6.4-8.2) g/dL Albumin (3.4-5.0) g/dL Globulin (2.6-4.0) g/dL Albumin/Globulin Ratio (0.9-1.6) COVID-19 PCR NOT DETECTED (NOT DETECT) 08/12/19 08/12/19 08/12/19 Range/Units 13:38 13:38 14:25 WBC 7.33 (4.0-11.0) K/uL RBC 4.06 L (4.50-5.90) M/uL Hgb 12.0 L (13.0-17.0) g/dL Hct 36.8 L (38.0-50.0) % MCV 90.6 (80.0-98.0) fL MCH 29.6 (27.0-32.0) pg MCHC 32.6 (31.0-37.0) g/dL RDW Std Deviation 51.9 (28.0-62.0) fl RDW Coeff of Yanick 16 H (11.0-15.0) % Plt Count 191 (150-400) K/uL MPV 9.40 (7.40-12.00) fL Neut % (Auto) (48.0-80.0) % Lymph % (Auto) (16.0-40.0) % [place] % (Auto) (0.0-15.0) % Eos % (Auto) (0.0-7.0) % Baso % (Auto) (0.0-1.5) % Neut # (Auto) (1.4-5.7) K/uL Lymph # (Auto) (0.6-2.4) K/uL [place] # (Auto) (0.0-0.8) K/uL Eos # (Auto) (0.0-0.7) K/uL Baso # (Auto) (0.0-0.1) K/uL Nucleated RBC % 0.0 /100WBC Nucleated RBCs # 0 K/uL ABG pH 7.470 H (7.35-7.45) ABG pCO2 44 (35-45) mmHG ABG pO2 72 L (75-100) mmHG ABG HCO3 32 H (22-26) mEq/L ABG Total CO2 29.1 ABG Base Excess 7.4 H (-2.0-2.0) Sodium 136 (136-148) mmol/L Potassium 3.6 (3.5-5.1) mmol/L Chloride 97 L (98-107) mmol/L Carbon Dioxide 32.0 (21.0-32.0) mmol/L BUN 29 H (7.0-18.0) mg/dL Creatinine 1.4 H (0.8-1.3) mg/dL Est Cr Clr Drug Dosing 48.11 mL/min Estimated GFR (MDRD) 48.6 ml/min Glucose 134 H (74-106) mg/dL POC Glucose (60-110) mg/dL Calcium 8.7 (8.5-10.1) mg/dL Magnesium 2.2 (1.8-2.4) mg/dL Total Bilirubin 0.8 (0.2-1.0) mg/dL AST 91 H (15-37) IU/L ALT 68 H (14-63) IU/L Alkaline Phosphatase 163 H (46-116) U/L Total Protein 7.7 (6.4-8.2) g/dL Albumin 2.4 L (3.4-5.0) g/dL Globulin 5.3 H (2.6-4.0) g/dL Albumin/Globulin Ratio 0.5 L (0.9-1.6) COVID-19 PCR (NOT DETECT) 08/12/19 08/13/19 08/13/19 Range/Units 17:36 06:00 06:00 WBC 5.64 (4.0-11.0) K/uL RBC 3.73 L (4.50-5.90) M/uL Hgb 10.8 L (13.0-17.0) g/dL Hct 34.4 L (38.0-50.0) % MCV 92.2 (80.0-98.0) fL MCH 29.0 (27.0-32.0) pg MCHC 31.4 (31.0-37.0) g/dL RDW Std Deviation 52.9 (28.0-62.0) fl RDW Coeff of Yanick 16 H (11.0-15.0) % Plt Count 202 (150-400) K/uL MPV 8.90 (7.40-12.00) fL Neut % (Auto) 71.5 (48.0-80.0) % Lymph % (Auto) 19.1 (16.0-40.0) % [place] % (Auto) 6.7 (0.0-15.0) % Eos % (Auto) 2.5 (0.0-7.0) % Baso % (Auto) 0.2 (0.0-1.5) % Neut # (Auto) 4.0 (1.4-5.7) K/uL Lymph # (Auto) 1.1 (0.6-2.4) K/uL [place] # (Auto) 0.4 (0.0-0.8) K/uL Eos # (Auto) 0.1 (0.0-0.7) K/uL Baso # (Auto) 0.0 (0.0-0.1) K/uL Nucleated RBC % 0.0 /100WBC Nucleated RBCs # 0 K/uL ABG pH (7.35-7.45) ABG pCO2 (35-45) mmHG ABG pO2 (75-100) mmHG ABG HCO3 (22-26) mEq/L ABG Total CO2 ABG Base Excess (-2.0-2.0) Sodium 138 (136-148) mmol/L Potassium 3.6 (3.5-5.1) mmol/L Chloride 100 (98-107) mmol/L Carbon Dioxide 34.9 H (21.0-32.0) mmol/L BUN 29 H (7.0-18.0) mg/dL Creatinine 1.2 (0.8-1.3) mg/dL Est Cr Clr Drug Dosing 56.13 mL/min Estimated GFR (MDRD) 58.1 ml/min Glucose 125 H (74-106) mg/dL POC Glucose 137 H (60-110) mg/dL Calcium 8.6 (8.5-10.1) mg/dL Magnesium (1.8-2.4) mg/dL Total Bilirubin (0.2-1.0) mg/dL AST (15-37) IU/L ALT (14-63) IU/L Alkaline Phosphatase (46-116) U/L Total Protein (6.4-8.2) g/dL Albumin (3.4-5.0) g/dL Globulin (2.6-4.0) g/dL Albumin/Globulin Ratio (0.9-1.6) COVID-19 PCR (NOT DETECT) 08/13/19 Range/Units 06:13 WBC (4.0-11.0) K/uL RBC (4.50-5.90) M/uL Hgb (13.0-17.0) g/dL Hct (38.0-50.0) % MCV (80.0-98.0) fL MCH (27.0-32.0) pg MCHC (31.0-37.0) g/dL RDW Std Deviation (28.0-62.0) fl RDW Coeff of Yanick (11.0-15.0) % Plt Count (150-400) K/uL MPV (7.40-12.00) fL Neut % (Auto) (48.0-80.0) % Lymph % (Auto) (16.0-40.0) % [place] % (Auto) (0.0-15.0) % Eos % (Auto) (0.0-7.0) % Baso % (Auto) (0.0-1.5) % Neut # (Auto) (1.4-5.7) K/uL Lymph # (Auto) (0.6-2.4) K/uL [place] # (Auto) (0.0-0.8) K/uL Eos # (Auto) (0.0-0.7) K/uL Baso # (Auto) (0.0-0.1) K/uL Nucleated RBC % /100WBC Nucleated RBCs # K/uL ABG pH (7.35-7.45) ABG pCO2 (35-45) mmHG ABG pO2 (75-100) mmHG ABG HCO3 (22-26) mEq/L ABG Total CO2 ABG Base Excess (-2.0-2.0) Sodium (136-148) mmol/L Potassium (3.5-5.1) mmol/L Chloride (98-107) mmol/L Carbon Dioxide (21.0-32.0) mmol/L BUN (7.0-18.0) mg/dL Creatinine (0.8-1.3) mg/dL Est Cr Clr Drug Dosing mL/min Estimated GFR (MDRD) ml/min Glucose (74-106) mg/dL POC Glucose 118 H (60-110) mg/dL Calcium (8.5-10.1) mg/dL Magnesium (1.8-2.4) mg/dL Total Bilirubin (0.2-1.0) mg/dL AST (15-37) IU/L ALT (14-63) IU/L Alkaline Phosphatase (46-116) U/L Total Protein (6.4-8.2) g/dL Albumin (3.4-5.0) g/dL Globulin (2.6-4.0) g/dL Albumin/Globulin Ratio (0.9-1.6) COVID-19 PCR (NOT DETECT) Med Orders - Current: Current Medications Acetaminophen (Tylenol) 325 mg PO Q4H PRN PRN Reason: Pain Last Admin: 08/11/19 00:48 Dose: 325 mg Apixaban (Eliquis) 5 mg PO BID [facility] Last Admin: 08/13/19 08:42 Dose: 5 mg Cephalexin (Keflex) 500 mg PO Q6H [facility] Last Admin: 08/13/19 04:02 Dose: 500 mg Finasteride (Proscar) 5 mg PO DAILY [facility] Last Admin: 08/13/19 08:42 Dose: 5 mg Furosemide (Lasix) 40 mg IVPUSH BID [facility] Insulin Aspart (Novolog) 0 unit SUBCUT TIDAC [facility]; Protocol Last Admin: 08/13/19 07:44 Dose: Not Given Loratadine (Claritin) 10 mg PO DAILY [facility] Last Admin: 08/13/19 08:42 Dose: 10 mg Metoprolol Tartrate (100 Mg Tab) 1 each PO TID [facility] Last Admin: 08/13/19 06:14 Dose: 1 each Potassium Chloride (10 Meq Tab.Er) 1 each PO TID [facility] Last Admin: 08/13/19 06:14 Dose: 1 each Simvastatin 80 Mg (Tab) 0.5 each PO BEDTIME [facility] Last Admin: 08/12/19 21:21 Dose: 0.5 each Tamsulosin 0.4 Mg (Cap.Er) 2 each PO ACDINNER [facility] Last Admin: 08/12/19 18:16 Dose: 2 each Discontinued Medications Cephalexin (Keflex) 500 mg PO Q6HR [facility] Last Admin: 08/12/19 16:19 Dose: Not Given Furosemide (Lasix) 60 mg IVPUSH NOW ONE Stop: 08/07/19 15:20 Last Admin: 08/07/19 17:01 Dose: 60 mg Furosemide (Lasix) 80 mg IV TID [facility] Last Admin: 08/12/19 06:14 Dose: 80 mg Gabapentin (Neurontin) 300 mg PO DAILY [facility] Last Admin: 08/12/19 08:55 Dose: 300 mg Piperacillin Sod/Tazobactam (Sod 3.375 gm/ Sodium Chloride) 50 mls @ 100 mls/ hr IV ONETIME ONE Stop: 08/07/19 14:31 Last Admin: 08/07/19 14:20 Dose: 100 mls/hr Vancomycin HCl 2 gm/ Sodium (Chloride) 500 mls @ 250 mls/hr IV Q12H [facility] Last Admin: 08/09/19 06:07 Dose: Not Given Vancomycin HCl 2 gm/ Sodium (Chloride) 500 mls @ 250 mls/hr IV Q24H [facility] Last Admin: 08/09/19 16:37 Dose: 250 mls/hr Oxycodone HCl (Oxycodone) 5 mg PO ONETIME ONE Stop: 08/09/19 12:01 Last Admin: 08/09/19 12:10 Dose: 5 mg Oxycodone HCl (Oxycodone) 5 mg PO Q8H PRN PRN Reason: Pain Last Admin: 08/09/19 20:06 Dose: 5 mg Potassium Chloride (Klor-Con M20) 40 meq PO ONETIME ONE Stop: 08/09/19 10:10 Last Admin: 08/09/19 10:18 Dose: 40 meq Tamsulosin HCl (Flomax) 0.8 mg PO ACDINNER [facility] Tramadol HCl (Ultram) 50 mg PO Q8H PRN PRN Reason: Pain Last Admin: 08/09/19 18:28 Dose: 50 mg Tramadol HCl (Ultram) 50 mg PO Q6H PRN PRN Reason: Pain Last Admin: 08/11/19 05:47 Dose: 50 mg Vancomycin HCl (Pharmacy To Dose - Vancomycin) 1 dose .XX ASDIRECTED MARIANNA - Exam General: Alert, Oriented Lungs: Clear to Auscultation, Normal Respiratory Effort Cardiovascular: Regular Rate, Regular Rhythm GI/Abdominal Exam: Soft, Non-Tender, No Distention Extremities: Non-Tender (+1 edema, erythema improving) Sepsis Event Note - Evaluation Sepsis Screening Result: No Definite Risk - Focused Exam Vital Signs: Vital Signs Temp Resp BP Pulse Ox 08/13/19 07:00 14 101/48 L 95 08/13/19 06:00 16 114/59 L 96 08/13/19 05:00 17 105/59 L 91 L 08/13/19 04:00 36.5 C 17 108/63 92 L 08/13/19 03:00 15 103/57 L 92 L 08/13/19 02:00 15 117/61 92 L 08/13/19 01:00 17 112/53 L 92 L 08/13/19 00:00 36.8 C 16 114/54 L 92 L 08/12/19 23:00 14 112/59 L 92 L 08/12/19 22:00 14 107/52 L 91 L Date Exam was Performed: 08/13/19 Time Exam was Performed: 09:03 - Problem List Review Problem List Initiated/Reviewed/Updated: Yes - My Orders Last 24 Hours: My Active Orders 08/12/19 13:24 EKG 12 Lead [EKG Documentation Completion] [RC] STAT 08/12/19 13:30 Transfer Patient (Change bed) [ADT] Routine 08/12/19 16:00 cephALEXin [Keflex] 500 mg PO Q6H 08/12/19 17:08 Insert Ramirez Catheter [Insert Urinary Catheter] [OM.PC] Stat 08/12/19 17:12 Urinary Catheter Assessment [RC] Q4H 08/13/19 09:15 Furosemide [Lasix] 40 mg IVPUSH BID 08/14/19 05:11 BASIC METABOLIC PANEL,BMP [CHEM] AM CBC WITH AUTO DIFF [HEME] AM MAGNESIUM [CHEM] AM - Plan Plan:: 83 yo male admitted with left leg cellulitis and fluid overload likely from CHF. Cellulitis: continue Keflex Diastolic heart failure: continue Lasix BID with fluid restriction. CKD stable, echocardiogram report is nondiagnostic study due to limited image quality. WAQAR: CPAP at night and during naps, patient likely had a severe apneic spell during the day yesterday. Dispo: PT recommended rehab placement. Patient agrees to [facility] placement, likely on Wednesday.
[2019-08-13] MEDS: Furosemide 40 MG/4 ML VIAL IVPUSH SCH ×2 (09:46→20:22)
--- NOTE | 2019-08-13 16:12 | PN ---
THC Physician - Brief Progress [id number]/19/2020 15:48[facility] Prabhakar Zuñiga, BRINA - AWA (KEITH) - AWA CARMEN VOGTFaviolaDate of Service 08/13/2019 15:48HPI/Events of Note eICU Progress NotePt is a 83 yo M admitted on 08/06 for LE cellulitus. He was then transferred to the ICU on 08/11 for volume overload and respiratory distress. He was diuresed with good results a nd his Lasix has been decreased this am from TID dosing to BID. His Cr is improved to 1.2 and he is s itting up in a chair with stable VS on O2 via NC. The plan is to keep him overnight again in the ICU, but he may be stable enough for transfer back to the [facility] tomorrow. Case was discussed with his nurse Suzette. eICU Recommendations:1) Continue diuresis as tolerated2) Wean O2 to maintain a SpO2 > 94%3) Co mplete course of antibiotics for cellulitus4) PT/OT 5) BG managementThank you for allowing us to part icipate in the care of your patient.Interventions Major-Hypoxemia - evaluation and managementIntermed iate-Communication with other healthcare providers and/or family, Hypervolemia - evaluation and manag ement
[2019-08-13] MEDS: Tamsulosin 0.4 MG Cap.ER PO SCH (18:13)
[2019-08-14] MEDS: Acetaminophen 325 MG Tab PO PRN ×2 (00:57→15:00)
[2019-08-14] MEDS: Cephalexin 500 MG Cap PO SCH ×4 (04:29→21:12)
[2019-08-14] MEDS: Potassium Chloride 10 MEQ Tab.ER PO SCH ×3 (05:54→21:12)
[2019-08-14] MEDS: Metoprolol Tartrate 100 MG Tab PO SCH ×3 (05:54→21:12)
[2019-08-14 06:13] LABS: BLOOD UREA NITROGEN,BUN 26 mg/dL (7.0-18.0); CARBON DIOXIDE,CO2 35.8 mmol/L (21.0-32.0); CHLORIDE,CL 101 mmol/L (98-107); GLUCOSE RANDOM 125 mg/dL (74-106); POTASSIUM,K 3.6 mmol/L (3.5-5.1); SODIUM,NA 140 mmol/L (136-148)
[2019-08-14] MEDS: Insulin Aspart 100 Units/ML 3 ML Pen SUBCUT SCH ×3 (07:43→17:58)
[2019-08-14] MEDS: Furosemide 40 MG/4 ML VIAL IVPUSH SCH ×2 (08:10→20:41)
[2019-08-14] MEDS: Finasteride 5 MG Tab PO SCH (08:10)
[2019-08-14] MEDS: Loratadine 10 MG Tab PO SCH (08:10)
[2019-08-14] MEDS: Apixaban 5 MG Tab PO SCH ×2 (08:10→20:41)
--- NOTE | 2019-08-14 09:01 | PN ---
THC Physician - Brief Progress [id number]/20/2020 09:00[facility] Prabhakar Zuñiga, BRINA - MWTabitha (KEITH) - CARMEN CORREIADate of Service 08/14/2019 09:00HPI/Events of Note eICU Progress [id number] admitted for volume overload and respiratory distress. History obtained primarily from review of EMR.Camera exam: Laying in bed. Vitals monitor reviewed.Vitals: reviewedLab s: reviewedRadiology: reviewedMeds: reviewedeICU Recommendations:Continue diuresis as neededSupplemen carlton oxygen to maintain saturation of 94-98%Continue antibiotics for cellulitisDVT and GI prophylaxis as appropriate.We are available to assist in further clarification, or implementation of any of the lee graham recommendations if desired by primary service.Thank you for allowing us to participate in the ca re of this patient.The above note transcribed with the assistance of dictation software. Please excus e any errors.Interventions Major-Hypoxemia - evaluation and management
--- NOTE | 2019-08-14 11:46 | PCM.PN ---
- General Info Date of Service: 08/14/19 Admission Dx/Problem (Free Text): Admission Diagnosis/Problem Admission Diagnosis/Problem Cellulitis of right anterior lower leg, CHF Subjective Update: Feeling improved today, no chest pain. No dyspnea. Feels like his legs are getting better. No other concerns Functional Status: Reports: Pain Controlled, Tolerating Diet. Denies: Ambulating - Review of Systems Pulmonary: Reports: No Symptoms. Denies: Shortness of Breath Cardiovascular: Reports: No Symptoms. Denies: Chest Pain Gastrointestinal: Reports: No Symptoms. Denies: Abdominal Pain, Nausea, Vomiting Genitourinary: Reports: No Symptoms Neurological: Reports: No Symptoms Psychiatric: Reports: No Symptoms - Patient Data Vitals - Most Recent: Last Vital Signs Temp 97.2 F 08/14/19 08:00 Pulse 81 08/12/19 13:08 Resp 16 08/14/19 09:00 BP 116/58 L 08/14/19 09:00 Pulse Ox 90 L 08/14/19 09:00 Weight - Most Recent: 138.89 kg I&O - Last 24 Hours: Intake & Output 08/13/19 08/14/19 08/14/19 22:59 06:59 14:59 Intake Total 440 650 Output Total 1100 1200 Balance -660 -550 Lab Results Last 24 Hours: Laboratory Results - last 24 hr 08/13/19 08/13/19 08/14/19 Range/Units 12:47 18:01 05:45 WBC 6.79 (4.0-11.0) K/uL RBC 3.77 L (4.50-5.90) M/uL Hgb 11.0 L (13.0-17.0) g/dL Hct 35.0 L (38.0-50.0) % MCV 92.8 (80.0-98.0) fL MCH 29.2 (27.0-32.0) pg MCHC 31.4 (31.0-37.0) g/dL RDW Std Deviation 52.8 (28.0-62.0) fl RDW Coeff of [place] 16 H (11.0-15.0) % Plt Count 223 (150-400) K/uL MPV 8.70 (7.40-12.00) fL Neut % (Auto) 74.9 (48.0-80.0) % Lymph % (Auto) 15.5 L (16.0-40.0) % [place] % (Auto) 7.1 (0.0-15.0) % Eos % (Auto) 2.2 (0.0-7.0) % Baso % (Auto) 0.3 (0.0-1.5) % Neut # (Auto) 5.1 (1.4-5.7) K/uL Lymph # (Auto) 1.1 (0.6-2.4) K/uL [place] # (Auto) 0.5 (0.0-0.8) K/uL Eos # (Auto) 0.2 (0.0-0.7) K/uL Baso # (Auto) 0.0 (0.0-0.1) K/uL Nucleated RBC % 0.0 /100WBC Nucleated RBCs # 0 K/uL Sodium (136-148) mmol/L Potassium (3.5-5.1) mmol/L Chloride (98-107) mmol/L Carbon Dioxide (21.0-32.0) mmol/L BUN (7.0-18.0) mg/dL Creatinine (0.8-1.3) mg/dL Est Cr Clr Drug Dosing mL/min Estimated GFR (MDRD) ml/min Glucose (74-106) mg/dL POC Glucose 117 H 151 H (60-110) mg/dL Calcium (8.5-10.1) mg/dL Magnesium (1.8-2.4) mg/dL 08/14/19 08/14/19 Range/Units 05:45 05:59 WBC (4.0-11.0) K/uL RBC (4.50-5.90) M/uL Hgb (13.0-17.0) g/dL Hct (38.0-50.0) % MCV (80.0-98.0) fL MCH (27.0-32.0) pg MCHC (31.0-37.0) g/dL RDW Std Deviation (28.0-62.0) fl RDW Coeff of [place] (11.0-15.0) % Plt Count (150-400) K/uL MPV (7.40-12.00) fL Neut % (Auto) (48.0-80.0) % Lymph % (Auto) (16.0-40.0) % [place] % (Auto) (0.0-15.0) % Eos % (Auto) (0.0-7.0) % Baso % (Auto) (0.0-1.5) % Neut # (Auto) (1.4-5.7) K/uL Lymph # (Auto) (0.6-2.4) K/uL [place] # (Auto) (0.0-0.8) K/uL Eos # (Auto) (0.0-0.7) K/uL Baso # (Auto) (0.0-0.1) K/uL Nucleated RBC % /100WBC Nucleated RBCs # K/uL Sodium 140 (136-148) mmol/L Potassium 3.6 (3.5-5.1) mmol/L Chloride 101 (98-107) mmol/L Carbon Dioxide 35.8 H (21.0-32.0) mmol/L BUN 26 H (7.0-18.0) mg/dL Creatinine 1.1 (0.8-1.3) mg/dL Est Cr Clr Drug Dosing 61.23 mL/min Estimated GFR (MDRD) > 60.0 ml/min Glucose 125 H (74-106) mg/dL POC Glucose 134 H (60-110) mg/dL Calcium 8.6 (8.5-10.1) mg/dL Magnesium 2.1 (1.8-2.4) mg/dL Med Orders - Current: Current Medications Acetaminophen (Tylenol) 325 mg PO Q4H PRN PRN Reason: Pain Last Admin: 08/14/19 00:57 Dose: 325 mg Apixaban (Eliquis) 5 mg PO BID [facility] Last Admin: 08/14/19 08:10 Dose: 5 mg Cephalexin (Keflex) 500 mg PO Q6H [facility] Last Admin: 08/14/19 11:00 Dose: 500 mg Finasteride (Proscar) 5 mg PO DAILY [facility] Last Admin: 08/14/19 08:10 Dose: 5 mg Furosemide (Lasix) 40 mg IVPUSH BID [facility] Last Admin: 08/14/19 08:10 Dose: 40 mg Insulin Aspart (Novolog) 0 unit SUBCUT TIDAC [facility]; Protocol Last Admin: 08/14/19 11:44 Dose: Not Given Loratadine (Claritin) 10 mg PO DAILY [facility] Last Admin: 08/14/19 08:10 Dose: 10 mg Metoprolol Tartrate (100 Mg Tab) 1 each PO TID [facility] Last Admin: 08/14/19 05:54 Dose: 1 each Potassium Chloride (10 Meq Tab.Er) 1 each PO TID [facility] Last Admin: 08/14/19 05:54 Dose: 1 each Simvastatin 80 Mg (Tab) 0.5 each PO BEDTIME [facility] Last Admin: 08/13/19 20:23 Dose: 0.5 each Tamsulosin 0.4 Mg (Cap.Er) 2 each PO ACDINNER [facility] Last Admin: 08/13/19 18:13 Dose: 2 each Discontinued Medications Cephalexin (Keflex) 500 mg PO Q6HR [facility] Last Admin: 08/12/19 16:19 Dose: Not Given Furosemide (Lasix) 60 mg IVPUSH NOW ONE Stop: 08/07/19 15:20 Last Admin: 08/07/19 17:01 Dose: 60 mg Furosemide (Lasix) 80 mg IV TID [facility] Last Admin: 08/12/19 06:14 Dose: 80 mg Gabapentin (Neurontin) 300 mg PO DAILY [facility] Last Admin: 08/12/19 08:55 Dose: 300 mg Piperacillin Sod/Tazobactam (Sod 3.375 gm/ Sodium Chloride) 50 mls @ 100 mls/ hr IV ONETIME ONE Stop: 08/07/19 14:31 Last Admin: 08/07/19 14:20 Dose: 100 mls/hr Vancomycin HCl 2 gm/ Sodium (Chloride) 500 mls @ 250 mls/hr IV Q12H [facility] Last Admin: 08/09/19 06:07 Dose: Not Given Vancomycin HCl 2 gm/ Sodium (Chloride) 500 mls @ 250 mls/hr IV Q24H [facility] Last Admin: 08/09/19 16:37 Dose: 250 mls/hr Oxycodone HCl (Oxycodone) 5 mg PO ONETIME ONE Stop: 08/09/19 12:01 Last Admin: 08/09/19 12:10 Dose: 5 mg Oxycodone HCl (Oxycodone) 5 mg PO Q8H PRN PRN Reason: Pain Last Admin: 08/09/19 20:06 Dose: 5 mg Potassium Chloride (Klor-Con M20) 40 meq PO ONETIME ONE Stop: 08/09/19 10:10 Last Admin: 08/09/19 10:18 Dose: 40 meq Tamsulosin HCl (Flomax) 0.8 mg PO ACDINNER [facility] Tramadol HCl (Ultram) 50 mg PO Q8H PRN PRN Reason: Pain Last Admin: 08/09/19 18:28 Dose: 50 mg Tramadol HCl (Ultram) 50 mg PO Q6H PRN PRN Reason: Pain Last Admin: 08/11/19 05:47 Dose: 50 mg Vancomycin HCl (Pharmacy To Dose - Vancomycin) 1 dose .XX ASDIRECTED [facility] - Exam General: Alert, Oriented, Cooperative, No Acute Distress Lungs: Normal Respiratory Effort, Decreased Breath Sounds (bibasilar) Cardiovascular: Regular Rate, Regular Rhythm GI/Abdominal Exam: Normal Bowel Sounds, Soft, Non-Tender, Other (obese abdomen) Extremities: Normal Inspection, Normal Range of Motion, Non-Tender, Pedal Edema Wound/Incisions: Erythema Improving Neurological: No New Focal Deficit Psy/Mental Status: Alert, Normal Affect, Normal Mood Sepsis Event Note - Evaluation Sepsis Screening Result: No Definite Risk - Focused Exam Vital Signs: Vital Signs Temp Resp BP Pulse Ox Pulse Ox 08/14/19 09:00 16 116/58 L 90 L 08/14/19 08:00 97.2 F 23 H 115/58 L 91 L 08/14/19 07:00 15 94 L 08/14/19 06:00 18 108/62 94 L 08/14/19 05:00 14 119/62 94 L 94 L 08/14/19 04:00 97.6 F 18 140/60 94 L 08/14/19 03:00 14 140/50 L 94 L 08/14/19 02:00 19 135/66 94 L 08/14/19 01:00 19 139/75 94 L 08/14/19 00:00 98 F 19 107/57 L 94 L Date Exam was Performed: 08/14/19 Time Exam was Performed: 13:06 - Problem List & Annotations (1) Cellulitis of leg without foot, left SNOMED Code(s): 589287495 Code(s): L03.116 - CELLULITIS OF LEFT LOWER LIMB Status: Acute Current Visit: Yes (2) Afib SNOMED Code(s): 17597534 Code(s): I48.91 - UNSPECIFIED ATRIAL FIBRILLATION Status: Acute Current Visit: No (3) Anticoagulant long-term use SNOMED Code(s): 853936221 Code(s): Z79.01 - FDC (CURRENT) USE OF ANTICOAGULANTS Status: Acute Current Visit: No (4) Cellulitis SNOMED Code(s): 407889633 Code(s): L03.90 - CELLULITIS, UNSPECIFIED Status: Acute Current Visit: No (5) Hypoxia SNOMED Code(s): 150315139 Code(s): R09.02 - HYPOXEMIA Status: Acute Current Visit: No (6) BPH (benign prostatic hyperplasia) SNOMED Code(s): 198954829 Code(s): N40.0 - BENIGN PROSTATIC HYPERPLASIA WITHOUT LOWER URINRY TRACT SYMP Status: Chronic Current Visit: No Qualifiers: Lower urinary tract symptom detail: unspecified (7) CAD (coronary artery disease) SNOMED Code(s): 50641296 Code(s): I25.10 - ATHSCL HEART DISEASE OF [place] CORONARY ARTERY W/O ANG PCTRS Status: Chronic Current Visit: No Qualifiers: Coronary Disease-Associated Artery/Lesion type: [place] artery [place] vs. transplanted heart: [place] heart Associated angina: without angina Qualified Code(s): I25.10 - Atherosclerotic heart disease of [place] coronary artery without angina pectoris (8) CHF (congestive heart failure) SNOMED Code(s): 95555929 Code(s): I50.9 - HEART FAILURE, UNSPECIFIED Status: Chronic Current Visit : No Qualifiers: Heart failure type: unspecified Heart failure chronicity: chronic Qualified Code(s): I50.9 - Heart failure, unspecified (9) Carotid stenosis Status: Chronic Current Visit: No Qualifiers: Laterality: right Qualified Code(s): I65.21 - Occlusion and stenosis of right carotid artery (10) HTN (hypertension) SNOMED Code(s): 26528758 Code(s): I10 - ESSENTIAL (PRIMARY) HYPERTENSION Status: Chronic Current Visit: No Qualifiers: Hypertension type: essential hypertension Qualified Code(s): I10 - Essential (primary) hypertension (11) History of CEA (carotid endarterectomy) SNOMED Code(s): 928851854, 338872142 Code(s): Z98.890 - OTHER SPECIFIED POSTPROCEDURAL STATES Status: Chronic Current Visit: No (12) Hx of CABG SNOMED Code(s): 408008615, 931823250 Code(s): Z95.1 - PRESENCE OF AORTOCORONARY BYPASS GRAFT Status: Chronic Current Visit: No (13) Hx of total knee arthroplasty SNOMED Code(s): 8412057360412, 3213530590763, 35864490228931 Code(s): Z96.659 - PRESENCE OF UNSPECIFIED ARTIFICIAL KNEE JOINT Status: Chronic Current Visit: No Qualifiers: Laterality: left Qualified Code(s): Z96.652 - Presence of left artificial knee joint (14) WAQAR on CPAP SNOMED Code(s): 27139396 Code(s): G47.33 - OBSTRUCTIVE SLEEP APNEA (ADULT) (PEDIATRIC); Z99.89 - DEPENDENCE ON OTHER ENABLING MACHINES AND DEVICES Status: Chronic Current Visit: No (15) Obesity SNOMED Code(s): 685666830, 423625955 Code(s): E66.9 - OBESITY, UNSPECIFIED Status: Chronic Current Visit: No (16) PVD (peripheral vascular disease) SNOMED Code(s): 130772265 Code(s): I73.9 - PERIPHERAL VASCULAR DISEASE, UNSPECIFIED Status: Chronic Current Visit: No - Problem List Review Problem List Initiated/Reviewed/Updated: Yes - My Orders Last 24 Hours: My Active Orders 08/14/19 09:33 Ang Chest [CT] Urgent 08/14/19 09:35 Transfer Patient (Change bed) [ADT] Routine Pulse Oximetry Continuous Monitoring [OM.PC] Routine 08/14/19 09:36 Telemetry Monitoring [Cardiac Monitoring] [RC] . DIRECTED 08/14/19 09:37 Communication Order [RC] DAILY 08/14/19 09:45 Wound Systems Checkout Mechanic Consult [Consult to Wound Care Services] [CONS] Routine 08/14/19 09:55 Consult to Physical Therapy [PT Evaluation and Treatment] [CONS] Routine - Plan Plan:: 83 yo male admitted with left leg cellulitis and fluid overload likely from CHF. 1. Cellulitis: - Much improved. - Continue Keflex. - Xray of foot noted to not be able to exclude osteomyelitis and also noted radiopaque object in heel. Will obtain CT of foot today and evaluate fully, may need to have podiatry follow up as outpatient 2. Diastolic heart failure: - Improvement. Continue Lasix BID with fluid restriction. - CKD stable - echocardiogram report is nondiagnostic study due to limited image quality. 3. WAQAR: - CPAP at night and during naps, patient likely had a severe apneic spell during the day Dispo: PT recommended rehab placement. Patient agrees to [facility] placement, likely on Wednesday.
--- NOTE | 2019-08-14 15:00 | CT ---
CT chest Technique: Multiple axial sections through the chest were obtained. Intravenous contrast was utilized. Study performed as pulmonary angiogram protocol. Findings: Pulmonary arteries are well opacified. No filling defects are seen to indicate pulmonary embolism. Coronary artery calcification is noted. Previous sternotomy is seen. Aorta shows atherosclerotic calcification without aneurysm. Mediastinum and hilar region show no adenopathy or mass. Heart is mildly enlarged. Visualized upper abdominal structures shows no discrete abnormality. Trace pleural effusion is noted on the right side. Mild areas of atelectasis and possible scarring is seen within both posterior lungs. No acute parenchymal change is suspected. Bone window settings were reviewed which shows no acute osseous finding. Impression: 1. No findings of pulmonary embolism. 2. Trace right-sided pleural effusion. 3. Mild atelectasis and scarring within both posterior lung bases. Diagnostic code #3 This report was dictated in MDT
--- NOTE | 2019-08-14 15:13 | CT ---
EXAM DATE: 08/08/19 PATIENT'S AGE: 83 CT left foot Technique: Multiple axial sections through the left foot were obtained. Reconstructed coronal and sagittal images were obtained. Findings: Small superficial foreign body projected within the skin along the medial side of the heel. This foreign body measures approximately 3.6 mm. 2nd small foreign body is seen next to the metatarsal head of the 5th digit. This finding measures about 3 mm. Plantar spur is noted. Mild joint space narrowing is scattered within the mid foot. Small bony densities are noted off the medial ankle compatible with old injury. Degenerative change is noted at the tarsal metatarsal joints. Joint space narrowing and old appearing erosions are seen within the 1st MTP joint. Diffuse soft tissue swelling is noted. No acute fracture or dislocation is seen. Vascular calcification is noted around the ankle. Impression: 1. 2 small foreign bodies as described above. 2. Degenerative change as noted above. 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 3. Vascular calcification. 4. Plantar spur. 5. Diffuse soft tissue swelling is noted. Please correlate if patient has any symptoms of cellulitis. 6. No acute bony abnormality is appreciated. Diagnostic code #3 This report was dictated in MDT Report Signed by Proxy. RENÉE
[2019-08-14] MEDS ORDERED: Acetaminophen 325 MG Tab PO PRN (15:32)
[2019-08-14] MEDS ORDERED: Iopamidol 755 Mg/ML 100 ML Bottle IVPUSH STA (16:00)
[2019-08-14] MEDS: Gabapentin 300 MG Cap PO SCH (16:22)
[2019-08-14] MEDS: Tamsulosin 0.4 MG Cap.ER PO SCH (16:24)
[2019-08-15] MEDS: Cephalexin 500 MG Cap PO SCH ×2 (04:26→10:05)
[2019-08-15 05:56] LABS: BLOOD UREA NITROGEN,BUN 24 mg/dL (7.0-18.0); CARBON DIOXIDE,CO2 33.5 mmol/L (21.0-32.0); CHLORIDE,CL 101 mmol/L (98-107); GLUCOSE RANDOM 130 mg/dL (74-106); POTASSIUM,K 3.6 mmol/L (3.5-5.1); SODIUM,NA 139 mmol/L (136-148)
[2019-08-15] MEDS: Potassium Chloride 10 MEQ Tab.ER PO SCH (06:11)
[2019-08-15] MEDS: Metoprolol Tartrate 100 MG Tab PO SCH (06:11)
[2019-08-15] MEDS: Insulin Aspart 100 Units/ML 3 ML Pen SUBCUT SCH ×2 (06:45→12:00)
[2019-08-15] MEDS: Finasteride 5 MG Tab PO SCH (08:49)
[2019-08-15] MEDS: Loratadine 10 MG Tab PO SCH (08:49)
[2019-08-15] MEDS: Apixaban 5 MG Tab PO SCH (08:49)
[2019-08-15] MEDS: Gabapentin 300 MG Cap PO SCH (08:49)
[2019-08-15] MEDS: Furosemide 40 MG/4 ML VIAL IVPUSH SCH (08:50)
--- NOTE | 2019-08-15 11:15 | PCM.DCSUM1 ---
Discharge Summary - Hospital Course Brief History: 83 year old male with pmh of HTN, CAD, CHF, s/p CABG. atrial fibrillation on anticoagulation, PVD, WAQAR on CPAP, BPH and obesity who presented to the ED with complaints of leg swelling and redness to his left leg. PAtient reports his left leg is always a little more edematous than the right as that is where they harvested a vein graft. He reports a 2-3 LB weight increase today. His legs are more swollen the left more than the right today. They are weeping clear fluid. He reports taking twice a day lasix but they seem to stop working. He denies any shortness of breath. HE reports redness around his left leg more so than his normal venous stasis changes. Diagnosis: Stroke: No - Discharge Data Discharge Date: 08/15/19 Discharge Disposition: DC/Tfer to SNF 03 Condition: Good - Referral to Home Health Primary Care Physician: [facility] - Discharge Diagnosis/Problem(s) (1) Cellulitis of leg without foot, left SNOMED Code(s): 565973972 ICD Code: L03.116 - CELLULITIS OF LEFT LOWER LIMB Status: Acute Current Visit: Yes (2) Afib SNOMED Code(s): 17886595 ICD Code: I48.91 - UNSPECIFIED ATRIAL FIBRILLATION Status: Acute Current Visit: No (3) Anticoagulant long-term use SNOMED Code(s): 252195358 ICD Code: Z79.01 - SERVER ENGINEER (CURRENT) USE OF ANTICOAGULANTS Status: Acute Current Visit: No (4) Cellulitis SNOMED Code(s): 994833607 ICD Code: L03.90 - CELLULITIS, UNSPECIFIED Status: Acute Current Visit: No (5) Hypoxia SNOMED Code(s): 589509128 ICD Code: R09.02 - HYPOXEMIA Status: Acute Current Visit: No (6) BPH (benign prostatic hyperplasia) SNOMED Code(s): 638939303 ICD Code: N40.0 - BENIGN PROSTATIC HYPERPLASIA WITHOUT LOWER URINRY TRACT SYMP Status: Chronic Current Visit: No Qualifiers: Lower urinary tract symptom detail: unspecified (7) CAD (coronary artery disease) SNOMED Code(s): 57433230 ICD Code: I25.10 - ATHSCL HEART DISEASE OF [place] CORONARY ARTERY W/O ANG PCTRS Status: Chronic Current Visit: No Qualifiers: Coronary Disease-Associated Artery/Lesion type: [place] artery [place] vs. transplanted heart: [place] heart Associated angina: without angina Qualified Code(s): I25.10 - Atherosclerotic heart disease of [place] coronary artery without angina pectoris (8) CHF (congestive heart failure) SNOMED Code(s): 66160957 ICD Code: I50.9 - HEART FAILURE, UNSPECIFIED Status: Chronic Current Visit: No Qualifiers: Heart failure type: unspecified Heart failure chronicity: chronic Qualified Code(s): I50.9 - Heart failure, unspecified (9) Carotid stenosis Status: Chronic Current Visit: No Qualifiers: Laterality: right Qualified Code(s): I65.21 - Occlusion and stenosis of right carotid artery (10) HTN (hypertension) SNOMED Code(s): 24014808 ICD Code: I10 - ESSENTIAL (PRIMARY) HYPERTENSION Status: Chronic Current Visit: No Qualifiers: Hypertension type: essential hypertension Qualified Code(s): I10 - Essential (primary) hypertension (11) History of CEA (carotid endarterectomy) SNOMED Code(s): 055294423, 681162235 ICD Code: Z98.890 - OTHER SPECIFIED POSTPROCEDURAL STATES Status: Chronic Current Visit: No (12) Hx of CABG SNOMED Code(s): 619467981, 863663108 ICD Code: Z95.1 - PRESENCE OF AORTOCORONARY BYPASS GRAFT Status: Chronic Current Visit: No (13) Hx of total knee arthroplasty SNOMED Code(s): 3814630553521, 0408902310244, 30303386319789 ICD Code: Z96.659 - PRESENCE OF UNSPECIFIED ARTIFICIAL KNEE JOINT Status: Chronic Current Visit: No Qualifiers: Laterality: left Qualified Code(s): Z96.652 - Presence of left artificial knee joint (14) WAQAR on CPAP SNOMED Code(s): 08909293 ICD Code: G47.33 - OBSTRUCTIVE SLEEP APNEA (ADULT) (PEDIATRIC); Z99.89 - DEPENDENCE ON OTHER ENABLING MACHINES AND DEVICES Status: Chronic Current Visit: No (15) Obesity SNOMED Code(s): 337069934, 934029857 ICD Code: E66.9 - OBESITY, UNSPECIFIED Status: Chronic Current Visit: No (16) PVD (peripheral vascular disease) SNOMED Code(s): 838355980 ICD Code: I73.9 - PERIPHERAL VASCULAR DISEASE, UNSPECIFIED Status: Chronic Current Visit: No (17) BPH with urinary obstruction SNOMED Code(s): 421068702 ICD Code: N40.1 - BENIGN PROSTATIC HYPERPLASIA WITH LOWER URINARY TRACT SYMP ; N13.8 - OTHER OBSTRUCTIVE AND REFLUX UROPATHY Status: Chronic Current Visit: Yes - Patient Summary/Data Consults: Consultations 08/14/19 09:45 Wound Refrigeration Tech Consult [Consult to Wound Care Services] [CONS] Routine 08/14/19 09:55 Consult to Physical Therapy [PT Evaluation and Treatment] [CONS] Routine Hospital Course: Admitting Diagnoses: Cellulitis LLE Diastolic CHF exacerbation Discharge Diagnoses: Cellulitis LLE Diastolic CHF exacerbation Obstructive BPH Other PMH: HTN CAD Afib Anticoagulation BPH PVD WAQAR on CPAP Obesity CABG Luis Eduardo was admitted secondary to cellulitis noted on LLE at outside facility. He was started on Vancomycin as well as aggressive diuresis for acute CHF exacerbation. He was doing well, made inpatient due to the extensive diuresis needed. He continued to do well. Had significant pain with edema to lower extremities and had a hard time walking. He became deconditioned and is in need of SNF for rehabilitation to be able to return home. Gabapentin 300 mg daily was started of neuropathy pain, which has helped along with continued diuresis. He was switched to Keflex for cellulitis. CT of lower leg obtained, no osteomyelitis. Noted to have tiny radioopaque objects superficially on 5th digit and heel of L foot, No signs of abscess. Will arrange outpatient Podiatry consult when leg is more healed. He did have episode of apnea while napping without CPAP, brought to ICU but all studies were negative. Tramadol was discontinued and CPAP was continued for all naps as well as for night time sleep. He was noted to have some urinary retention likely related to obstructive BPH. He has followed with Dr Wells in the past, remains on Proscar and Flomax. Ramirez was placed, will remain in place on transfer [place] may consider trialing it out in a week or so. We will arrange follow up with Dr. Wells. He Will be discharged to [facility] today, I have informed Tali, daughter regarding this. She is aware of treatment plan. I will contact Dr Sosa regarding admission. Keflex will have 3 days to complete 10 day course. PT/OT/ ST to evaluate and treat along with wound care. He is to return to ED or clinic if concerns should arise. - Patient Instructions Diet: Low Sodium, Fluid Restriction, Diabetic Diet Fluid Restriction: 2000 mL Activity: As Tolerated Driving: Do Not Drive Showering/Bathing: May Shower Notify Provider of: Fever, Increased Pain, Swelling and Redness, Drainage, Nausea and/or Vomiting Other/Special Instructions: PT/OT/ST to evaluate and treat. Ramirez cares per protocol for obstructive BPH. Daily weights. CPAP at night for WAQAR, also needs for all naps. Wound care nurse consult for LLE wounds. - Currently placed to wounds are: Aquacel Ag silver dressing and wrapped with kerlex. Chnage kerlex often if it becomes moist with drainage from leg. Change daily. - Discharge Plan *PRESCRIPTION DRUG MONITORING PROGRAM REVIEWED*: Not Applicable *COPY OF PRESCRIPTION DRUG MONITORING REPORT IN PATIENT JONATHAN: Not Applicable Prescriptions/Med Rec: cephALEXin [Keflex] 500 mg PO Q6H #12 cap Furosemide 40 mg PO BID #30 tablet Gabapentin [Neurontin] 300 mg PO DAILY #30 cap Home Medications: Home Meds Finasteride [Proscar] 5 mg PO DAILY 12/27/13 [History] Glucosam/Chond/Collagen/Hyalur [Glucosamine Chondroitin] 1 tab PO DAILY [History] Lutein 10 mg PO DAILY 12/27/13 [History] Ammonium Lactate [Amlactin 12% Lotion] 3 gm TP BID PRN 09/15/17 [History] Simvastatin [Zocor] 40 mg PO BEDTIME 09/21/17 [History] Metoprolol Tartrate 100 mg PO TID #90 tablet 09/22/17 [Rx] Apixaban [Eliquis] 5 mg PO BID 08/07/19 [History] Garlic 1 tab PO DAILY 08/07/19 [History] Loratadine 10 mg PO DAILY 08/07/19 [History] Mupirocin Oint [Bactroban Oint] 1 applic TP QID 08/07/19 [History] Potassium Chloride [Klor-Con 10] 10 meq PO TID 08/07/19 [History] Tamsulosin HCl [Flomax] 0.8 mg PO ACDINNER 08/07/19 [History] Furosemide 40 mg PO BID #30 tablet 08/15/19 [Rx] Gabapentin [Neurontin] 300 mg PO DAILY #30 cap 08/15/19 [Rx] cephALEXin [Keflex] 500 mg PO Q6H #12 cap 08/15/19 [Rx] Oxygen Therapy Mode: Nasal Cannula Oxygen Flow Rate (L/min): 2 Maintain SpO2% greater than: 88 Patient Handouts: Cellulitis, Adult, [id number] Referrals: [facility] [Outside] - 08/16/19 12:30 pm (Arrive 15 minutes early with a photo ID and insurance card. ) James Sosa MD [Physician] - Benji Wells MD [Physician] - 09/07/19 1:00 pm Ant Culp DPBoo [Physician] - (Please call this number to make an appointment. A message has been left at the clinic. ) - Discharge Summary/Plan Comment DC Time >30 min.: No (Discussed care with wade Cesar as well as Dr Sosa.) - Patient Data Vitals - Most Recent: Last Vital Signs Temp 98.1 F 08/15/19 08:00 Pulse 72 08/15/19 08:00 Resp 18 08/15/19 08:00 BP 114/67 08/15/19 08:00 Pulse Ox 93 L 08/15/19 08:00 Weight - Most Recent: 138.89 kg I&O - Last 24 hours: Intake & Output 08/14/19 08/15/19 08/15/19 22:59 06:59 14:59 Intake Total 900 760 Output Total 0 1460 Balance 900 -700 Lab Results - Last 24 hrs: Laboratory Results - last 24 hr 08/14/19 08/14/19 08/15/19 Range/Units 11:41 17:44 04:55 WBC 6.97 (4.0-11.0) K/uL RBC 3.72 L (4.50-5.90) M/uL Hgb 10.9 L (13.0-17.0) g/dL Hct 34.7 L (38.0-50.0) % MCV 93.3 (80.0-98.0) fL MCH 29.3 (27.0-32.0) pg MCHC 31.4 (31.0-37.0) g/dL RDW Std Deviation 52.9 (28.0-62.0) fl RDW Coeff of [place] 15 (11.0-15.0) % Plt Count 240 (150-400) K/uL MPV 9.00 (7.40-12.00) fL Neut % (Auto) 78.2 (48.0-80.0) % Lymph % (Auto) 14.2 L (16.0-40.0) % [place] % (Auto) 5.5 (0.0-15.0) % Eos % (Auto) 1.7 (0.0-7.0) % Baso % (Auto) 0.4 (0.0-1.5) % Neut # (Auto) 5.5 (1.4-5.7) K/uL Lymph # (Auto) 1.0 (0.6-2.4) K/uL [place] # (Auto) 0.4 (0.0-0.8) K/uL Eos # (Auto) 0.1 (0.0-0.7) K/uL Baso # (Auto) 0.0 (0.0-0.1) K/uL Nucleated RBC % 0.0 /100WBC Nucleated RBCs # 0 K/uL Sodium (136-148) mmol/L Potassium (3.5-5.1) mmol/L Chloride (98-107) mmol/L Carbon Dioxide (21.0-32.0) mmol/L BUN (7.0-18.0) mg/dL Creatinine (0.8-1.3) mg/dL Est Cr Clr Drug Dosing mL/min Estimated GFR (MDRD) ml/min Glucose (74-106) mg/dL POC Glucose 142 H 296 H (60-110) mg/dL Calcium (8.5-10.1) mg/dL Magnesium (1.8-2.4) mg/dL 08/15/19 08/15/19 Range/Units 04:55 06:42 WBC (4.0-11.0) K/uL RBC (4.50-5.90) M/uL Hgb (13.0-17.0) g/dL Hct (38.0-50.0) % MCV (80.0-98.0) fL MCH (27.0-32.0) pg MCHC (31.0-37.0) g/dL RDW Std Deviation (28.0-62.0) fl RDW Coeff of [place] (11.0-15.0) % Plt Count (150-400) K/uL MPV (7.40-12.00) fL Neut % (Auto) (48.0-80.0) % Lymph % (Auto) (16.0-40.0) % [place] % (Auto) (0.0-15.0) % Eos % (Auto) (0.0-7.0) % Baso % (Auto) (0.0-1.5) % Neut # (Auto) (1.4-5.7) K/uL Lymph # (Auto) (0.6-2.4) K/uL [place] # (Auto) (0.0-0.8) K/uL Eos # (Auto) (0.0-0.7) K/uL Baso # (Auto) (0.0-0.1) K/uL Nucleated RBC % /100WBC Nucleated RBCs # K/uL Sodium 139 (136-148) mmol/L Potassium 3.6 (3.5-5.1) mmol/L Chloride 101 (98-107) mmol/L Carbon Dioxide 33.5 H (21.0-32.0) mmol/L BUN 24 H (7.0-18.0) mg/dL Creatinine 1.0 (0.8-1.3) mg/dL Est Cr Clr Drug Dosing 67.36 mL/min Estimated GFR (MDRD) > 60.0 ml/min Glucose 130 H (74-106) mg/dL POC Glucose 118 H (60-110) mg/dL Calcium 8.6 (8.5-10.1) mg/dL Magnesium 2.0 (1.8-2.4) mg/dL Med Orders - Current: Current Medications Acetaminophen (Tylenol) 650 mg PO Q4H PRN PRN Reason: Pain Last Admin: 08/15/19 06:23 Dose: 650 mg Apixaban (Eliquis) 5 mg PO BID [facility] Last Admin: 08/15/19 08:49 Dose: 5 mg Cephalexin (Keflex) 500 mg PO Q6H [facility] Last Admin: 08/15/19 10:05 Dose: 500 mg Finasteride (Proscar) 5 mg PO DAILY [facility] Last Admin: 08/15/19 08:49 Dose: 5 mg Furosemide (Lasix) 40 mg IVPUSH BID [facility] Last Admin: 08/15/19 08:50 Dose: 40 mg Gabapentin (Neurontin) 300 mg PO DAILY [facility] Last Admin: 08/15/19 08:49 Dose: 300 mg Insulin Aspart (Novolog) 0 unit SUBCUT TIDAC [facility]; Protocol Last Admin: 08/15/19 06:45 Dose: Not Given Loratadine (Claritin) 10 mg PO DAILY [facility] Last Admin: 08/15/19 08:49 Dose: 10 mg Metoprolol Tartrate (100 Mg Tab) 1 each PO TID [facility] Last Admin: 08/15/19 06:11 Dose: 1 each Potassium Chloride (10 Meq Tab.Er) 1 each PO TID [facility] Last Admin: 08/15/19 06:11 Dose: 1 each Simvastatin 80 Mg (Tab) 0.5 each PO BEDTIME [facility] Last Admin: 08/14/19 20:42 Dose: 0.5 each Tamsulosin 0.4 Mg (Cap.Er) 2 each PO ACDINNER [facility] Last Admin: 08/14/19 16:24 Dose: 2 each Discontinued Medications Acetaminophen (Tylenol) 325 mg PO Q4H PRN PRN Reason: Pain Last Admin: 08/14/19 15:00 Dose: 325 mg Cephalexin (Keflex) 500 mg PO Q6HR [facility] Last Admin: 08/12/19 16:19 Dose: Not Given Furosemide (Lasix) 60 mg IVPUSH NOW ONE Stop: 08/07/19 15:20 Last Admin: 08/07/19 17:01 Dose: 60 mg Furosemide (Lasix) 80 mg IV TID [facility] Last Admin: 08/12/19 06:14 Dose: 80 mg Gabapentin (Neurontin) 300 mg PO DAILY [facility] Last Admin: 08/12/19 08:55 Dose: 300 mg Piperacillin Sod/Tazobactam (Sod 3.375 gm/ Sodium Chloride) 50 mls @ 100 mls/ hr IV ONETIME ONE Stop: 08/07/19 14:31 Last Admin: 08/07/19 14:20 Dose: 100 mls/hr Vancomycin HCl 2 gm/ Sodium (Chloride) 500 mls @ 250 mls/hr IV Q12H [facility] Last Admin: 08/09/19 06:07 Dose: Not Given Vancomycin HCl 2 gm/ Sodium (Chloride) 500 mls @ 250 mls/hr IV Q24H [facility] Last Admin: 08/09/19 16:37 Dose: 250 mls/hr Iopamidol (Isovue-370 (76%)) 100 ml IVPUSH ONETIME STA Stop: 08/14/19 16:01 Last Admin: 08/14/19 16:01 Dose: 100 ml Oxycodone HCl (Oxycodone) 5 mg PO ONETIME ONE Stop: 08/09/19 12:01 Last Admin: 08/09/19 12:10 Dose: 5 mg Oxycodone HCl (Oxycodone) 5 mg PO Q8H PRN PRN Reason: Pain Last Admin: 08/09/19 20:06 Dose: 5 mg Potassium Chloride (Klor-Con M20) 40 meq PO ONETIME ONE Stop: 08/09/19 10:10 Last Admin: 08/09/19 10:18 Dose: 40 meq Tamsulosin HCl (Flomax) 0.8 mg PO ACDINNER [facility] Tramadol HCl (Ultram) 50 mg PO Q8H PRN PRN Reason: Pain Last Admin: 08/09/19 18:28 Dose: 50 mg Tramadol HCl (Ultram) 50 mg PO Q6H PRN PRN Reason: Pain Last Admin: 08/11/19 05:47 Dose: 50 mg Vancomycin HCl (Pharmacy To Dose - Vancomycin) 1 dose .XX ASDIRECTED MARIANNA - Exam Quality Assessment: Reports: Supplemental Oxygen, Urine Catheter, DVT Prophylaxis General: Reports: Alert, Oriented, Cooperative, No Acute Distress Lungs: Reports: Normal Respiratory Effort, Decreased Breath Sounds (bibasilar) Cardiovascular: Reports: Regular Rate, Regular Rhythm Back Exam: Reports: Normal Inspection, Full Range of Motion Extremities: Normal Range of Motion, Pedal Edema (+2 pitting edema, L>R, much improved) Skin: Reports: Ecchymosis (bruising under L eye, multipe bruises and scabs to arms in all healing stages. ) Wound/Incisions: Reports: Dressing Dry and Intact, Drainage, Erythema Improving , Other (ulcers noted to L leg, dressing intact. No obvious drainage today.) Psy/Mental Status: Reports: Alert, Normal Affect, Normal Mood
[2019-08-15 13:11] VITALS: BP 109/59; PULSE 79
== END 2019-08-15 13:25 | DRG 602 ==
LOC: MW.ED 11:22 → MW.MS 14:32 → OBSVTOIN 08-08 09:21 → MW.MS 08-08 10:38 → MW.ICU 08-12 13:47 → MW.MS 08-14 14:59
PROVIDERS: ADMIT Internal Medicine; ATTEND Internal Medicine
DX: L03.116 Cellulitis of left lower limb (principal); E11.9 Type 2 diabetes mellitus without complications; I11.0 Hypertensive heart disease with heart failure; I50.9 Heart failure, unspecified; I50.33 Acute on chronic diastolic (congestive) heart failure; I13.0 Hypertensive heart and chronic kidney disease with heart failure and stage 1 through stage 4 chronic kidney disease, or unspecified chronic kidney disease; I73.9 Peripheral vascular disease, unspecified; N13.8 Other obstructive and reflux uropathy; E11.51 Type 2 diabetes mellitus with diabetic peripheral angiopathy without gangrene; E11.22 Type 2 diabetes mellitus with diabetic chronic kidney disease; N18.9 Chronic kidney disease, unspecified; N39.498 Other specified urinary incontinence; I48.91 Unspecified atrial fibrillation; I25.10 Atherosclerotic heart disease of native coronary artery without angina pectoris; I65.21 Occlusion and stenosis of right carotid artery; E66.01 Morbid (severe) obesity due to excess calories; Z96.652 Presence of left artificial knee joint; G47.33 Obstructive sleep apnea (adult) (pediatric); N40.1 Benign prostatic hyperplasia with lower urinary tract symptoms; E78.00 Pure hypercholesterolemia, unspecified; Z79.01 Long term (current) use of anticoagulants; Z98.890 Other specified postprocedural states; Z68.39 Body mass index [BMI] 39.0-39.9, adult; Z95.1 Presence of aortocoronary bypass graft; Z99.89 Dependence on other enabling machines and devices; Z79.899 Other long term (current) drug therapy
CPT/HCPCS: 36415; 36600; 51701; 51702; 70450; 70450-26; 71045; 71045-26; 71275; 71275-26; 73630-26-LT; 73630-LT; 73700-26-LT; 73700-LT; 80048; 80053; 80202; 81001; 82803; 82962; 83036; 83605; 83735; 83880; 84100; 85025; 85027; 93005; 93306; 96365; 96366; 96367; 96375; 96376; 97161-GP; 99284; 99284-25; A9270-GY; G0378; J1940; J2543; J3370; J7040; J7050; Q9967; U0002

== ENCOUNTER 2019-09-13 08:42 | Inpatient (IN) | payer OTHER ==
--- NOTE | 2019-09-13 09:47 | EDM.PDOC ---
ED [facility] GENERAL MEDICAL PROBLEM - General Stated Complaint: EMS ARRIVAL Time Seen by Provider: 09/13/19 09:42 Source of Information: Reports: Patient, EMS, Half-Way Records History Limitations: Reports: No Limitations - History of Present Illness INITIAL COMMENTS - FREE TEXT/NARRATIVE: Patient is an 84-year-old male significant past medical history for CHF, atrial fibrillation, obesity presenting with a chief complaint of fever. Patient is a half-way resident at [facility] was noted to be febrile to 104 today. Patient was given ibuprofen. In addition, the half-way noted that he was hypoxic and started him on nasal cannula. His hypoxia was in the low to mid 80s. Patient states he feels slightly more short of breath and has noticed increased coughing without sputum production. He otherwise is not complaining of any pain and states he otherwise feels well. Symptoms all started today. On EMS arrival, they found him hypoxic into the mid to high 80s. They started him on a nonrebreather and improved his oxygen saturation to 92%. No other interventions were started prior to the arrival in the ER. Pmhx: None Pshx: None Family Hx: noncontributory Smoking history? no Etoh use? none Drug use? none In addition to that documented in the HPI above, the additional ROS was obtained : Constitutional: Denies fevers or chills Eyes: Denies vision changes ENMT: Denies sore throat CV: Denies chest pain Resp: Denies SOB GI: Denies vomiting or diarrhea : Denies painful urination MSK: Denies recent trauma Skin: Denies new rashes Neuro: Denies new numbness or tingling or weakness Endocrine: Denies unexpected weight loss Heme: Denies bleeding disorders I have reviewed the triage vital signs Const: appears stated age. Chronically ill-appearing but is awake and alert and minimal distress Eyes: PERRL, no conjunctival injection HENT: NCAT, Neck supple without meningismus CV: RRR, Warm, well-perfused extremities RESP: CTAB, Unlabored respiratory effort GI: Obese abdomen but soft, non-tender, non-distended, no masses : Indwelling Ramirez is present with dark-colored urine MSK: Lower extremities are heavily edematous with chronic wound to the left lower extremity. No gross deformities appreciated Skin: Warm, dry. No rashes Neuro: Alert oriented x3, legal assistant II-XII grossly intact. Sensation and motor function of extremities grossly intact. Psych: Appropriate mood and affect Assessment and plan: Patient is an 84-year-old male presented to the ER with hypotension, hypoxia, fever. Patient was not in the respiratory distress and was saturating well on a nonrebreather however given his congestive heart failure picture and high O2 requirements patient was switched to BiPAP. Patient tolerated BiPAP well and remained on the BiPAP the entire ER stay. In addition, the patient was hypotensive and unresponsive to initial fluid bolus. Given patient's CHF history, heavy IV fluids were avoided. Early vasopressors were initiated. Patient responded well to Levophed through a peripheral IV and as such a central line was placed. Labs were reviewed demonstrating acute kidney injury. However, patient did have elevated CRP and shift of the white blood cell count. Likely diagnosis is sepsis secondary to pneumonia. Also considered were heart failure, may also play a component. Less likely was pulmonary embolism. Patient did have elevated d-dimer but adjusted for age, the d-dimer was within normal limits. Therefore CT angiogram was not pursued. Initially, no ICU beds were available and transfer process was initiated to [facility]. However, ICU bed became available with appropriate staff and therefore the patient was admitted to the ICU for further treatment. Broad- spectrum antibiotics were initiated in the emergency room. Lasix was deferred given sepsis picture and hypotension. Procedure note: Subclavian central line INDICATION: Hypotension requiring vasopressors and critically ill patient PROCEDURE AUTOMOTIVE PROJECT ENGINEER: Dr. Rangel Ultrasound Used: No CONSENT: Consent was obtained from patient prior to the procedure. Indications, risks, and benefits were explained at length. PROCEDURE SUMMARY: A time out was performed. My hands were washed immediately prior to the procedure. I wore a surgical cap, mask with protective eyewear, sterile gown and sterile gloves throughout the procedure. The patient was placed in Trendelenburg position. The right chest region was prepped using chlorhexidine scrub and draped in sterile fashion using a full drape. Anesthesia was achieved with 1% lidocaine. The introducer needle was inserted approximately two centimeters lateral to and 1 cm inferior to the normal curvature of the patient's clavicle. Venous blood was withdrawn. The syringe was removed and a guidewire was advanced into the introducer needle. A small incision was made at the skin surface with a scalpel and the introducer needle was exchanged for a dilator over the guidewire. After appropriate dilation was obtained, the dilator was exchanged over the wire for a triple-lumen central venous catheter. The wire was removed and the catheter was sutured in place at 18 cm. A sterile sorbaview shield was placed over the catheter at the insertion site. The patient tolerated the procedure without any hemodynamic compromise. At time of procedure completion, all ports aspirated and flushed properly. Post-procedure chest x-ray demenstruates appropriate positioning and no pneumothorax. Estimated blood loss is 10 cc. Critical Care Procedure Note Authorized and Performed by: Dr. Rangel Total critical care time: Approximately 90 minutes Due to a high probability of clinically significant, life threatening deterioration, the patient required my highest level of preparedness to intervene emergently and I personally spent this critical care time directly and personally managing the patient. This critical care time included obtaining a history; examining the patient; pulse oximetry; ordering and review of studies ; arranging urgent treatment with development of a management plan; evaluation of patient's response to treatment; frequent reassessment; and, discussions with other providers and family members. This critical care time was performed to assess and manage the high probability of imminent, life-threatening deterioration that could result in multi-organ failure. It was exclusive of separately billable procedures and treating other patients and teaching time. Please see MDM section and the rest of the note for further information on patient assessment and treatment. - Related Data Allergies Allergy/AdvReac Type Severity Reaction Status Date / Time No Known Allergies Allergy Verified 09/13/19 10:23 Home Meds: Home Meds Finasteride [Proscar] 5 mg PO DAILY 12/27/13 [History] Glucosam/Chond/Collagen/Hyalur [Glucosamine Chondroitin] 1 tab PO DAILY [History] Lutein 10 mg PO DAILY 12/27/13 [History] Garlic 1 tab PO DAILY 08/07/19 [History] Loratadine 10 mg PO DAILY 08/07/19 [History] Potassium Chloride [Klor-Con 10] 10 meq PO TID 08/07/19 [History] Furosemide 40 mg PO BID #30 tablet 08/15/19 [Rx] Gabapentin [Neurontin] 300 mg PO TID 09/13/19 [History] Metoprolol Tartrate 125 mg PO BID 09/13/19 [History] Mineral Oil 30 ml PO DAILY PRN 09/13/19 [History] Past Medical History HEENT History: Reports: Allergic Rhinitis, Hard of Hearing Other HEENT History: has upper removable partial denture and bilateral hearing aides Cardiovascular History: Reports: Afib, CAD, Heart Failure, High Cholesterol, Hypertension, PVD Respiratory History: Reports: Sleep Apnea Gastrointestinal History: Reports: Colon Polyp, Diverticulosis Genitourinary History: Reports: BPH, Urinary Incontinence Musculoskeletal History: Reports: Back Pain, Chronic Neurological History: Reports: None Psychiatric History: Reports: None Endocrine/Metabolic History: Reports: Obesity/BMI 30+ Hematologic History: Reports: None Immunologic History: Reports: None Oncologic (Cancer) History: Reports: None Dermatologic History: Reports: None - Infectious Disease History Infectious Disease History: Reports: None - Past Surgical History Head Surgeries/Procedures: Reports: None HEENT Surgical History: Reports: Cataract Surgery Cardiovascular Surgical History: Reports: Carotid Endarterectomy, Coronary Artery Bypass Respiratory Surgical History: Reports: None GI Surgical History: Reports: Appendectomy, Colonoscopy, Hernia, Abdominal Male Surgical History: Reports: None Endocrine Surgical History: Reports: None Neurological Surgical History: Reports: None Musculoskeletal Surgical History: Reports: Knee Replacement Oncologic Surgical History: Reports: None Dermatological Surgical History: Reports: None Social & Family History - Family History Family Medical History: Noncontributory - Caffeine Use Caffeine Use: Reports: None - Living Situation & Occupation Living situation: Reports: Single Occupation: Retired ED ROS GENERAL - Review of Systems Review Of Systems: See Below ED EXAM, SEPSIS - Physical Exam Exam: See Below Course - Vital Signs Last Recorded V/S: Last Vital Signs Temp 36.7 C 09/13/19 11:46 Pulse 99 09/13/19 13:29 Resp 24 H 09/13/19 13:29 BP 77/32 L 09/13/19 13:29 Pulse Ox 97 09/13/19 13:29 - Orders/Labs/Meds Orders: Active Orders 24 hr Category Date Time Status EKG Documentation Completion [RC] STAT Care 09/13/19 09:40 Active CULTURE BLOOD [BC] Stat Lab 09/13/19 09:37 Received CULTURE BLOOD [BC] Stat Lab 09/13/19 09:57 Received CULTURE URINE [RM] Stat Lab 09/13/19 09:40 Received PROCALCITONIN [REF] Stat Lab 09/13/19 09:37 Received Norepinephrine Bit/0.9 % NaCl [Norepinephr-0.9% NaCl 4 Med 09/13/19 11:00 Active mg/250] 4 mg in 250 ml IV TITRATE BiPAP [RESPCARE] Stat Oth 09/13/19 10:34 Active Blood Culture x2 Reflex Set [OM.PC] Stat Oth 09/13/19 09:40 Ordered Medication Orders Acetaminophen (Tylenol) 650 mg PO Q4H PRN PRN Reason: Pain/Fever Norepinephrine Bitartrate (Norepinephr-0.9% Nacl 4 Mg/250) 4 mg in 250 mls @ 7.5 mls/hr IV TITRATE MARIANNA; Protocol Last Titration: 09/13/19 12:56 Dose: 12 mcg/min, 45 mls/hr Titration: 09/13/19 11:37 Dose: 10 mcg/min, 37.5 mls/hr Titration: 09/13/19 11:31 Dose: 8 mcg/min, 30 mls/hr Titration: 09/13/19 11:26 Dose: 6 mcg/min, 22.5 mls/hr Titration: 09/13/19 11:21 Dose: 4 mcg/min, 15 mls/hr Admin: 09/13/19 11:14 Dose: 2 mcg/min, 7.5 mls/hr Ondansetron HCl (Zofran) 4 mg IVPUSH Q4H PRN PRN Reason: Nausea/Vomiting Labs: Laboratory Tests 09/13/19 09/13/19 09/13/19 Range/Units 09:37 09:37 09:37 WBC 10.14 (4.0-11.0) K/uL RBC 3.65 L (4.50-5.90) M/uL Hgb 10.1 L (13.0-17.0) g/dL Hct 32.5 L (38.0-50.0) % MCV 89.0 (80.0-98.0) fL MCH 27.7 (27.0-32.0) pg MCHC 31.1 (31.0-37.0) g/dL RDW Std Deviation 53.5 (28.0-62.0) fl RDW Coeff of Yanick 16 H (11.0-15.0) % Plt Count 171 (150-400) K/uL MPV 9.10 (7.40-12.00) fL Neut % (Auto) 91.8 H (48.0-80.0) % Lymph % (Auto) 3.6 L (16.0-40.0) % Bland % (Auto) 4.5 (0.0-15.0) % Eos % (Auto) 0.0 (0.0-7.0) % Baso % (Auto) 0.1 (0.0-1.5) % Neut # (Auto) 9.3 H (1.4-5.7) K/uL Lymph # (Auto) 0.4 L (0.6-2.4) K/uL Bland # (Auto) 0.5 (0.0-0.8) K/uL Eos # (Auto) 0.0 (0.0-0.7) K/uL Baso # (Auto) 0.0 (0.0-0.1) K/uL Nucleated RBC % 0.0 /100WBC Nucleated RBCs # 0 K/uL INR 1.45 D-Dimer, Quantitative 1.25 H (0.0-0.50) mg/L FEU Lactate 1.8 (0.20-2.00) mmol/L Sodium (136-148) mmol/L Potassium (3.5-5.1) mmol/L Chloride (98-107) mmol/L Carbon Dioxide (21.0-32.0) mmol/L BUN (7.0-18.0) mg/dL Creatinine (0.8-1.3) mg/dL Est Cr Clr Drug Dosing mL/min Estimated GFR (MDRD) ml/min Glucose (74-106) mg/dL Calcium (8.5-10.1) mg/dL Total Bilirubin (0.2-1.0) mg/dL AST (15-37) IU/L ALT (14-63) IU/L Alkaline Phosphatase (46-116) U/L Troponin I (0.000-0.056) ng/mL C-Reactive Protein (0.00-0.90) mg/dL B-Natriuretic Peptide (<100) PG/ML Total Protein (6.4-8.2) g/dL Albumin (3.4-5.0) g/dL Globulin (2.6-4.0) g/dL Albumin/Globulin Ratio (0.9-1.6) Urine Color Urine Appearance Urine pH (5.0-8.0) Ur Specific Denton (1.001-1.035) Urine Protein (NEGATIVE) mg/dL Urine Glucose (UA) (NEGATIVE) mg/dL Urine Ketones (NEGATIVE) mg/dL Urine Occult Blood (NEGATIVE) Urine Nitrite (NEGATIVE) Urine Bilirubin (NEGATIVE) Urine Ictotest Urine Urobilinogen (<2.0) EU/dL Ur Leukocyte Esterase (NEGATIVE) U Hyaline Cast (Auto) (0-2/LPF) Urine RBC (0-2/HPF) Urine WBC (0-5/HPF) Ur Epithelial Cells (NONE-FEW) Urine Bacteria (NEGATIVE) SARS-CoV-2 RNA (RT-PCR) (NEGATIVE) 09/13/19 09/13/19 09/13/19 Range/Units 09:37 09:37 09:40 WBC (4.0-11.0) K/uL RBC (4.50-5.90) M/uL Hgb (13.0-17.0) g/dL Hct (38.0-50.0) % MCV (80.0-98.0) fL MCH (27.0-32.0) pg MCHC (31.0-37.0) g/dL RDW Std Deviation (28.0-62.0) fl RDW Coeff of Yanick (11.0-15.0) % Plt Count (150-400) K/uL MPV (7.40-12.00) fL Neut % (Auto) (48.0-80.0) % Lymph % (Auto) (16.0-40.0) % Bland % (Auto) (0.0-15.0) % Eos % (Auto) (0.0-7.0) % Baso % (Auto) (0.0-1.5) % Neut # (Auto) (1.4-5.7) K/uL Lymph # (Auto) (0.6-2.4) K/uL Bland # (Auto) (0.0-0.8) K/uL Eos # (Auto) (0.0-0.7) K/uL Baso # (Auto) (0.0-0.1) K/uL Nucleated RBC % /100WBC Nucleated RBCs # K/uL INR D-Dimer, Quantitative (0.0-0.50) mg/L FEU Lactate (0.20-2.00) mmol/L Sodium 133 L (136-148) mmol/L Potassium 4.3 (3.5-5.1) mmol/L Chloride 98 (98-107) mmol/L Carbon Dioxide 26.3 (21.0-32.0) mmol/L BUN 36 H (7.0-18.0) mg/dL Creatinine 2.0 H (0.8-1.3) mg/dL Est Cr Clr Drug Dosing 29.40 mL/min Estimated GFR (MDRD) 32.1 ml/min Glucose 181 H (74-106) mg/dL Calcium 8.8 (8.5-10.1) mg/dL Total Bilirubin 1.2 H (0.2-1.0) mg/dL AST 21 (15-37) IU/L ALT 14 (14-63) IU/L Alkaline Phosphatase 112 (46-116) U/L Troponin I < 0.050 (0.000-0.056) ng/mL C-Reactive Protein 23.50 H (0.00-0.90) mg/dL B-Natriuretic Peptide 338 H (<100) PG/ML Total Protein 7.2 (6.4-8.2) g/dL Albumin 2.4 L (3.4-5.0) g/dL Globulin 4.8 H (2.6-4.0) g/dL Albumin/Globulin Ratio 0.5 L (0.9-1.6) Urine Color DARK YELLOW Urine Appearance SLT CLOUDY Urine pH 5.0 (5.0-8.0) Ur Specific Denton 1.025 (1.001-1.035) Urine Protein 100 H (NEGATIVE) mg/dL Urine Glucose (UA) NEGATIVE (NEGATIVE) mg/dL Urine Ketones NEGATIVE (NEGATIVE) mg/dL Urine Occult Blood LARGE H (NEGATIVE) Urine Nitrite NEGATIVE (NEGATIVE) Urine Bilirubin SMALL H (NEGATIVE) Urine Ictotest NEGATIVE Urine Urobilinogen 1.0 (<2.0) EU/dL Ur Leukocyte Esterase SMALL H (NEGATIVE) U Hyaline Cast (Auto) 0-3 (0-2/LPF) Urine RBC 60-80 (0-2/HPF) Urine WBC 10-15 (0-5/HPF) Ur Epithelial Cells RARE (NONE-FEW) Urine Bacteria 2+ H (NEGATIVE) SARS-CoV-2 RNA (RT-PCR) (NEGATIVE) 09/13/19 Range/Units 10:06 WBC (4.0-11.0) K/uL RBC (4.50-5.90) M/uL Hgb (13.0-17.0) g/dL Hct (38.0-50.0) % MCV (80.0-98.0) fL MCH (27.0-32.0) pg MCHC (31.0-37.0) g/dL RDW Std Deviation (28.0-62.0) fl RDW Coeff of Yanick (11.0-15.0) % Plt Count (150-400) K/uL MPV (7.40-12.00) fL Neut % (Auto) (48.0-80.0) % Lymph % (Auto) (16.0-40.0) % Bland % (Auto) (0.0-15.0) % Eos % (Auto) (0.0-7.0) % Baso % (Auto) (0.0-1.5) % Neut # (Auto) (1.4-5.7) K/uL Lymph # (Auto) (0.6-2.4) K/uL Bland # (Auto) (0.0-0.8) K/uL Eos # (Auto) (0.0-0.7) K/uL Baso # (Auto) (0.0-0.1) K/uL Nucleated RBC % /100WBC Nucleated RBCs # K/uL INR D-Dimer, Quantitative (0.0-0.50) mg/L FEU Lactate (0.20-2.00) mmol/L Sodium (136-148) mmol/L Potassium (3.5-5.1) mmol/L Chloride (98-107) mmol/L Carbon Dioxide (21.0-32.0) mmol/L BUN (7.0-18.0) mg/dL Creatinine (0.8-1.3) mg/dL Est Cr Clr Drug Dosing mL/min Estimated GFR (MDRD) ml/min Glucose (74-106) mg/dL Calcium (8.5-10.1) mg/dL Total Bilirubin (0.2-1.0) mg/dL AST (15-37) IU/L ALT (14-63) IU/L Alkaline Phosphatase (46-116) U/L Troponin I (0.000-0.056) ng/mL C-Reactive Protein (0.00-0.90) mg/dL B-Natriuretic Peptide (<100) PG/ML Total Protein (6.4-8.2) g/dL Albumin (3.4-5.0) g/dL Globulin (2.6-4.0) g/dL Albumin/Globulin Ratio (0.9-1.6) Urine Color Urine Appearance Urine pH (5.0-8.0) Ur Specific Denton (1.001-1.035) Urine Protein (NEGATIVE) mg/dL Urine Glucose (UA) (NEGATIVE) mg/dL Urine Ketones (NEGATIVE) mg/dL Urine Occult Blood (NEGATIVE) Urine Nitrite (NEGATIVE) Urine Bilirubin (NEGATIVE) Urine Ictotest Urine Urobilinogen (<2.0) EU/dL Ur Leukocyte Esterase (NEGATIVE) U Hyaline Cast (Auto) (0-2/LPF) Urine RBC (0-2/HPF) Urine WBC (0-5/HPF) Ur Epithelial Cells (NONE-FEW) Urine Bacteria (NEGATIVE) SARS-CoV-2 RNA (RT-PCR) NEGATIVE (NEGATIVE) Meds: Medications Generic Name Dose Route Start Last Admin Trade Name Freq PRN Reason Stop Dose Admin Acetaminophen 650 mg 09/13/19 14:11 Tylenol PO Q4H PRN Pain/Fever Norepinephrine Bitartrate 4 mg in 250 mls @ 7.5 mls/hr 09/13/19 11:00 12:56 Norepinephr-0.9% Nacl 4 Mg/250 IV 12 mcg/min TITRATE MARIANNA 45 mls/hr Titration Protocol 2 MCG/MIN Ondansetron HCl 4 mg 09/13/19 14:11 Zofran IVPUSH Q4H PRN Nausea/Vomiting Discontinued Medications Generic Name Dose Route Start Last Admin Trade Name Freq PRN Reason Stop Dose Admin Acetaminophen 650 mg 09/13/19 10:51 09/13/19 10:54 Tylenol PO 09/13/19 10:52 650 mg NOW ONE Administration Cefepime HCl 1 gm/ Premix 50 mls @ 100 mls/hr 09/13/19 10:23 09/13/19 10:58 IV 09/13/19 10:52 100 mls/hr ONETIME ONE Administration Sodium Chloride 500 mls @ 1,000 mls/hr 09/13/19 10:30 09/13/19 10:27 Normal Saline IV 1,000 mls/hr .BOLUS MARIANNA Administration Sodium Chloride 500 mls @ 999 mls/hr 09/13/19 10:30 Normal Saline IV .BOLUS MARIANNA Departure - Departure Time of Disposition: 14:40 Disposition: Admitted As Inpatient 68 Clinical Impression: Hypoxemia, Septicemia, Pneumonia Hypotension Qualifiers: Hypotension type: unspecified hypotension type Qualified Code(s): I95.9 - Hypotension, unspecified - Discharge Information Sepsis Event Note - Focused Exam Vital Signs: Vital Signs Temp Temp Temp Pulse Resp BP BP 09/13/19 13:29 99 24 H 77/32 L 09/13/19 13:01 91/43 L 09/13/19 12:56 99 20 84/49 L 09/13/19 11:46 36.7 C 101 H 102/57 L 09/13/19 11:31 80/50 L 09/13/19 11:25 87/48 L 09/13/19 11:20 76/35 L 09/13/19 11:15 108 H 20 68/42 L 09/13/19 10:54 38.3 C H 09/13/19 10:48 107 H 18 68/38 L 09/13/19 10:44 72/36 L 09/13/19 10:22 38.3 C H 116 H 20 82/43 L 09/13/19 10:12 118 H 22 H 88/38 L 09/13/19 09:30 37.1 C 91 28 H 143/114 H Pulse Ox 09/13/19 13:29 97 09/13/19 13:01 09/13/19 12:56 98 09/13/19 11:46 09/13/19 11:31 09/13/19 11:25 09/13/19 11:20 09/13/19 11:15 96 09/13/19 10:54 09/13/19 10:48 98 09/13/19 10:44 09/13/19 10:22 95 09/13/19 10:12 95 09/13/19 09:30 93 L Date Exam was Performed: 09/13/19 Time Exam was Performed: 15:30 - My Orders Last 24 Hours: My Active Orders 09/13/19 09:37 CULTURE BLOOD [BC] Stat PROCALCITONIN [REF] Stat 09/13/19 09:40 EKG Documentation Completion [RC] STAT CULTURE URINE [RM] Stat Blood Culture x2 Reflex Set [OM.PC] Stat 09/13/19 09:57 CULTURE BLOOD [BC] Stat 09/13/19 10:34 BiPAP [RESPCARE] Stat 09/13/19 11:00 Norepinephrine Bit/0.9 % NaCl [Norepinephr-0.9% NaCl 4 mg/250] 4 mg in 250 ml IV TITRATE - Assessment/Plan Last 24 Hours: My Active Orders 09/13/19 09:37 CULTURE BLOOD [BC] Stat PROCALCITONIN [REF] Stat 09/13/19 09:40 EKG Documentation Completion [RC] STAT CULTURE URINE [RM] Stat Blood Culture x2 Reflex Set [OM.PC] Stat 09/13/19 09:57 CULTURE BLOOD [BC] Stat 09/13/19 10:34 BiPAP [RESPCARE] Stat 09/13/19 11:00 Norepinephrine Bit/0.9 % NaCl [Norepinephr-0.9% NaCl 4 mg/250] 4 mg in 250 ml IV TITRATE
[2019-09-13 10:18] LABS: BLOOD UREA NITROGEN,BUN 36 mg/dL (7.0-18.0); CARBON DIOXIDE,CO2 26.3 mmol/L (21.0-32.0); CHLORIDE,CL 98 mmol/L (98-107); GLUCOSE RANDOM 181 mg/dL (74-106); POTASSIUM,K 4.3 mmol/L (3.5-5.1); SODIUM,NA 133 mmol/L (136-148)
[2019-09-13] MEDS ORDERED: Cefepime 1 GM in Premix Bag 1 BAG IV ONE (10:23)
[2019-09-13] MEDS ORDERED: Sodium Chloride 0.9% 500 ML IV SCH ×2 (10:30)
--- NOTE | 2019-09-13 10:41 | CR ---
Chest: Portable view of the chest was obtained. Comparison: Prior chest CT of 08/14/19 and chest x-ray of 08/12/19. Enlarged heart is seen with shifting of the mediastinum into the right chest which is a chronic finding. Linear area of scarring is seen within the right midlung. No acute parenchymal change is seen. Previous sternotomy is noted. Impression: 1. Findings as described above. 2. No significant change from previous study is seen. Nothing acute is identified. Diagnostic code #3 This report was dictated in MDT
[2019-09-13] MEDS ORDERED: Acetaminophen 325 MG Tab PO ONE (10:51)
--- NOTE | 2019-09-13 13:42 | CR ---
Chest: Portable view of the chest was obtained. Comparison: Prior chest x-ray of 09/13/19. Heart is enlarged. Right-sided subclavian line is seen. Tip lies near the right atrial and superior vena cava junction. No pneumothorax is seen. Previous sternotomy is noted. Lungs show no acute parenchymal change. Bony structures are grossly intact. Numerous surgical clips are seen within the right neck. Impression: 1. Tip of right subclavian line near the right atrial and superior vena cava junction. 2. No pneumothorax is seen. 3. Other portions of the chest appear stable. Diagnostic code #2 This report was dictated in MDT
--- NOTE | 2019-09-13 13:57 | PCM.HP.2 ---
Addendum entered and electronically signed by Teresita Lopez DO 09/13/19 17: 24: Had at length discussion with both daughter Tali and son Jonathan about code status and goals of care. Both are in agreement that they would like him to be DNR/DNI. Original Note: <Teresita Lopez - Last Filed: 09/13/19 17:16> H&P History of Present Illness - General Date of Service: 09/13/19 - History of Present Illness Initial Comments - Free Text/Narative: The patient is a 84 year old male with past medical history of CHF, CAD, Afib, indwelling catheter who lives at [facility]. At the [place] [facility] he was found to have a 103F fever and was hypoxic in the 80s. He is unable to give much history but reports shortness of breath and denies chest pain. In the ER, work up revealed white count of 10 but high neutrophil count. INR and lactate wnl. He did have an elevated D-dimer. He also has a ESTEE with BUN/ Cr of 36/2.0. BNP was 338 and CRp was 23. UA positive for bacteria and leuk est. COVID negative. CXR revealed cardiomegaly. In the ER, he was on 15 L of non rebreather and then he was transitioned to BiPAP and is in the 90s. He was still febrile in the ED, he was given Tylenol and his fever improved. He has been tachycardic which is improving, EKG showed Afib. He was also hypotensive with SBP in the 60s, 1 L bolus was administered without any significant improvement so a central line was placed and he was started on Levophed with improvement in blood pressures. He was given a dose of Cefepime. - Related Data Allergies/Adverse Reactions: Allergies Allergy/AdvReac Type Severity Reaction Status Date / Time No Known Allergies Allergy Verified 09/19/19 16:01 Home Medications: Home Meds Finasteride [Proscar] 5 mg PO DAILY 12/27/13 [History] Glucosam/Chond/Collagen/Hyalur [Glucosamine Chondroitin] 1 tab PO DAILY [History] Lutein 10 mg PO DAILY 12/27/13 [History] Garlic 1 tab PO DAILY 08/07/19 [History] Loratadine 10 mg PO DAILY 08/07/19 [History] Potassium Chloride [Klor-Con 10] 10 meq PO TID 08/07/19 [History] Furosemide 40 mg PO BID #30 tablet 08/15/19 [Rx] Gabapentin [Neurontin] 300 mg PO TID 09/13/19 [History] Metoprolol Tartrate 125 mg PO BID 09/13/19 [History] Mineral Oil 30 ml PO DAILY PRN 09/13/19 [History] Acetaminophen [Tylenol] 650 mg PO Q4H PRN 09/14/19 [History] Allopurinol [Zyloprim] 300 mg PO DAILY 09/14/19 [History] Naproxen Sodium [Aleve] 220 mg PO Q12H PRN 09/14/19 [History] Ammonium Lactate [Lac-Hydrin 12% Crm] 140 gm TRDERM Q12H PRN MDD Dry Skin [History] Apixaban [Eliquis] 5 mg PO BID 09/19/19 [History] Menthol [Biofreeze] 118 ml TP ASDIRECTED PRN 09/19/19 [History] Mupirocin Oint [Bactroban Oint] 22 gm TP QID 09/19/19 [History] Simvastatin 40 mg PO BEDTIME 09/19/19 [History] Tamsulosin HCl 0.8 mg PO DAILY 09/19/19 [History] cefTRIAXone [Rocephin in Dextrose,Iso-Osm 2 GM/50 ML] 2 gm IV Q24H 30 Days #30 bag 09/21/19 [Rx] metFORMIN [Glucophage] 500 mg PO BIDMEALS 7 Days #14 tab 09/21/19 [Rx] Past Medical History HEENT History: Reports: Allergic Rhinitis, Hard of Hearing Other HEENT History: has upper removable partial denture and bilateral hearing aides, dysphagia Cardiovascular History: Reports: Afib, CAD, Heart Failure, High Cholesterol, Hypertension, PVD, Other (See Below) Other Cardiovascular History: venous insufficiency, occulsion and stenosis of right carotid artery Respiratory History: Reports: Sleep Apnea, Other (See Below) Other Respiratory History: hx of hypoxemia Gastrointestinal History: Reports: Colon Polyp, Diverticulosis, Other (See Below ) Other Gastrointestinal History: abdominal hernia unspecified Genitourinary History: Reports: BPH, Diabetic Nephropathy, Urinary Incontinence Musculoskeletal History: Reports: Back Pain, Chronic, Osteoarthritis, Other ( See Below) Other Musculoskeletal History: muscle weakness Neurological History: Reports: None Psychiatric History: Reports: None Endocrine/Metabolic History: Reports: Diabetes, Type II, Obesity/BMI 30+ Hematologic History: Reports: None Immunologic History: Reports: None Oncologic (Cancer) History: Reports: None Dermatologic History: Reports: Cellulitis, Other (See Below) Other Dermatologic History: edmea - Infectious Disease History Infectious Disease History: Reports: None - Past Surgical History Head Surgeries/Procedures: Reports: None HEENT Surgical History: Reports: Cataract Surgery Cardiovascular Surgical History: Reports: Carotid Endarterectomy, Coronary Artery Bypass Respiratory Surgical History: Reports: None GI Surgical History: Reports: Appendectomy, Colonoscopy, Hernia, Abdominal Male Surgical History: Reports: None Endocrine Surgical History: Reports: None Neurological Surgical History: Reports: None Musculoskeletal Surgical History: Reports: Knee Replacement Oncologic Surgical History: Reports: None Dermatological Surgical History: Reports: None Social & Family History - Family History Family Medical History: Noncontributory - Tobacco Use Smoking Status *Q: Unknown Ever Smoked - Caffeine Use Caffeine Use: Reports: None - Living Situation & Occupation Living situation: Reports: Single Occupation: Retired H&P Review of Systems - Review of Systems: Review Of Systems: See Below General: Reports: Fever Pulmonary: Reports: Shortness of Breath Cardiovascular: Reports: Edema. Denies: Chest Pain Gastrointestinal: Reports: No Symptoms Genitourinary: Reports: No Symptoms, Other (catheter in place ) Musculoskeletal: Reports: No Symptoms Skin: Reports: No Symptoms Psychiatric: Reports: No Symptoms Neurological: Reports: No Symptoms Hematologic/Lymphatic: Reports: No Symptoms Immunologic: Reports: No Symptoms Exam - Exam Exam: See Below - Vital Signs Vital Signs: Last Vital Signs Temp 98.0 F 09/13/19 11:46 Pulse 99 09/13/19 13:29 Resp 24 H 09/13/19 13:29 BP 77/32 L 09/13/19 13:29 Pulse Ox 97 09/13/19 13:29 Weight: 139.797 kg - Exam General: Alert, Cooperative Lungs: Decreased Breath Sounds. No: Normal Respiratory Effort Cardiovascular: Irregular Rhythm, Tachycardia GI/Abdominal Exam: Normal Bowel Sounds, Soft, Non-Tender Extremities: Pedal Edema Skin: Warm, Dry Psychiatric: Alert - Patient Data Lab Results Last 24 hrs: Laboratory Results - last 24 hr 0509/13/19 09/13/19 Range/Units 09:37 09:37 09:37 WBC 10.14 (4.0-11.0) K/uL RBC 3.65 L (4.50-5.90) M/uL Hgb 10.1 L (13.0-17.0) g/dL Hct 32.5 L (38.0-50.0) % MCV 89.0 (80.0-98.0) fL MCH 27.7 (27.0-32.0) pg MCHC 31.1 (31.0-37.0) g/dL RDW Std Deviation 53.5 (28.0-62.0) fl RDW Coeff of Yanick 16 H (11.0-15.0) % Plt Count 171 (150-400) K/uL MPV 9.10 (7.40-12.00) fL Neut % (Auto) 91.8 H (48.0-80.0) % Lymph % (Auto) 3.6 L (16.0-40.0) % [place] % (Auto) 4.5 (0.0-15.0) % Eos % (Auto) 0.0 (0.0-7.0) % Baso % (Auto) 0.1 (0.0-1.5) % Neut # (Auto) 9.3 H (1.4-5.7) K/uL Lymph # (Auto) 0.4 L (0.6-2.4) K/uL [place] # (Auto) 0.5 (0.0-0.8) K/uL Eos # (Auto) 0.0 (0.0-0.7) K/uL Baso # (Auto) 0.0 (0.0-0.1) K/uL Nucleated RBC % 0.0 /100WBC Nucleated RBCs # 0 K/uL INR 1.45 D-Dimer, Quantitative 1.25 H (0.0-0.50) mg/L FEU Lactate 1.8 (0.20-2.00) mmol/L Sodium (136-148) mmol/L Potassium (3.5-5.1) mmol/L Chloride (98-107) mmol/L Carbon Dioxide (21.0-32.0) mmol/L BUN (7.0-18.0) mg/dL Creatinine (0.8-1.3) mg/dL Est Cr Clr Drug Dosing mL/min Estimated GFR (MDRD) ml/min Glucose (74-106) mg/dL Calcium (8.5-10.1) mg/dL Total Bilirubin (0.2-1.0) mg/dL AST (15-37) IU/L ALT (14-63) IU/L Alkaline Phosphatase (46-116) U/L Troponin I (0.000-0.056) ng/mL C-Reactive Protein (0.00-0.90) mg/dL B-Natriuretic Peptide (<100) PG/ML Total Protein (6.4-8.2) g/dL Albumin (3.4-5.0) g/dL Globulin (2.6-4.0) g/dL Albumin/Globulin Ratio (0.9-1.6) Urine Color Urine Appearance Urine pH (5.0-8.0) Ur Specific [place] (1.001-1.035) Urine Protein (NEGATIVE) mg/dL Urine Glucose (UA) (NEGATIVE) mg/dL Urine Ketones (NEGATIVE) mg/dL Urine Occult Blood (NEGATIVE) Urine Nitrite (NEGATIVE) Urine Bilirubin (NEGATIVE) Urine Ictotest Urine Urobilinogen (<2.0) EU/dL Ur Leukocyte Esterase (NEGATIVE) U Hyaline Cast (Auto) (0-2/LPF) Urine RBC (0-2/HPF) Urine WBC (0-5/HPF) Ur Epithelial Cells (NONE-FEW) Urine Bacteria (NEGATIVE) SARS-CoV-2 RNA (RT-PCR) (NEGATIVE) 09/13/19 09/13/19 09/13/19 Range/Units 09:37 09:37 09:40 WBC (4.0-11.0) K/uL RBC (4.50-5.90) M/uL Hgb (13.0-17.0) g/dL Hct (38.0-50.0) % MCV (80.0-98.0) fL MCH (27.0-32.0) pg MCHC (31.0-37.0) g/dL RDW Std Deviation (28.0-62.0) fl RDW Coeff of Yanick (11.0-15.0) % Plt Count (150-400) K/uL MPV (7.40-12.00) fL Neut % (Auto) (48.0-80.0) % Lymph % (Auto) (16.0-40.0) % [place] % (Auto) (0.0-15.0) % Eos % (Auto) (0.0-7.0) % Baso % (Auto) (0.0-1.5) % Neut # (Auto) (1.4-5.7) K/uL Lymph # (Auto) (0.6-2.4) K/uL [place] # (Auto) (0.0-0.8) K/uL Eos # (Auto) (0.0-0.7) K/uL Baso # (Auto) (0.0-0.1) K/uL Nucleated RBC % /100WBC Nucleated RBCs # K/uL INR D-Dimer, Quantitative (0.0-0.50) mg/L FEU Lactate (0.20-2.00) mmol/L Sodium 133 L (136-148) mmol/L Potassium 4.3 (3.5-5.1) mmol/L Chloride 98 (98-107) mmol/L Carbon Dioxide 26.3 (21.0-32.0) mmol/L BUN 36 H (7.0-18.0) mg/dL Creatinine 2.0 H (0.8-1.3) mg/dL Est Cr Clr Drug Dosing 29.40 mL/min Estimated GFR (MDRD) 32.1 ml/min Glucose 181 H (74-106) mg/dL Calcium 8.8 (8.5-10.1) mg/dL Total Bilirubin 1.2 H (0.2-1.0) mg/dL AST 21 (15-37) IU/L ALT 14 (14-63) IU/L Alkaline Phosphatase 112 (46-116) U/L Troponin I < 0.050 (0.000-0.056) ng/mL C-Reactive Protein 23.50 H (0.00-0.90) mg/dL B-Natriuretic Peptide 338 H (<100) PG/ML Total Protein 7.2 (6.4-8.2) g/dL Albumin 2.4 L (3.4-5.0) g/dL Globulin 4.8 H (2.6-4.0) g/dL Albumin/Globulin Ratio 0.5 L (0.9-1.6) Urine Color DARK YELLOW Urine Appearance SLT CLOUDY Urine pH 5.0 (5.0-8.0) Ur Specific [place] 1.025 (1.001-1.035) Urine Protein 100 H (NEGATIVE) mg/dL Urine Glucose (UA) NEGATIVE (NEGATIVE) mg/dL Urine Ketones NEGATIVE (NEGATIVE) mg/dL Urine Occult Blood LARGE H (NEGATIVE) Urine Nitrite NEGATIVE (NEGATIVE) Urine Bilirubin SMALL H (NEGATIVE) Urine Ictotest NEGATIVE Urine Urobilinogen 1.0 (<2.0) EU/dL Ur Leukocyte Esterase SMALL H (NEGATIVE) U Hyaline Cast (Auto) 0-3 (0-2/LPF) Urine RBC 60-80 (0-2/HPF) Urine WBC 10-15 (0-5/HPF) Ur Epithelial Cells RARE (NONE-FEW) Urine Bacteria 2+ H (NEGATIVE) SARS-CoV-2 RNA (RT-PCR) (NEGATIVE) 09/13/19 Range/Units 10:06 WBC (4.0-11.0) K/uL RBC (4.50-5.90) M/uL Hgb (13.0-17.0) g/dL Hct (38.0-50.0) % MCV (80.0-98.0) fL MCH (27.0-32.0) pg MCHC (31.0-37.0) g/dL RDW Std Deviation (28.0-62.0) fl RDW Coeff of Yanick (11.0-15.0) % Plt Count (150-400) K/uL MPV (7.40-12.00) fL Neut % (Auto) (48.0-80.0) % Lymph % (Auto) (16.0-40.0) % [place] % (Auto) (0.0-15.0) % Eos % (Auto) (0.0-7.0) % Baso % (Auto) (0.0-1.5) % Neut # (Auto) (1.4-5.7) K/uL Lymph # (Auto) (0.6-2.4) K/uL [place] # (Auto) (0.0-0.8) K/uL Eos # (Auto) (0.0-0.7) K/uL Baso # (Auto) (0.0-0.1) K/uL Nucleated RBC % /100WBC Nucleated RBCs # K/uL INR D-Dimer, Quantitative (0.0-0.50) mg/L FEU Lactate (0.20-2.00) mmol/L Sodium (136-148) mmol/L Potassium (3.5-5.1) mmol/L Chloride (98-107) mmol/L Carbon Dioxide (21.0-32.0) mmol/L BUN (7.0-18.0) mg/dL Creatinine (0.8-1.3) mg/dL Est Cr Clr Drug Dosing mL/min Estimated GFR (MDRD) ml/min Glucose (74-106) mg/dL Calcium (8.5-10.1) mg/dL Total Bilirubin (0.2-1.0) mg/dL AST (15-37) IU/L ALT (14-63) IU/L Alkaline Phosphatase (46-116) U/L Troponin I (0.000-0.056) ng/mL C-Reactive Protein (0.00-0.90) mg/dL B-Natriuretic Peptide (<100) PG/ML Total Protein (6.4-8.2) g/dL Albumin (3.4-5.0) g/dL Globulin (2.6-4.0) g/dL Albumin/Globulin Ratio (0.9-1.6) Urine Color Urine Appearance Urine pH (5.0-8.0) Ur Specific [place] (1.001-1.035) Urine Protein (NEGATIVE) mg/dL Urine Glucose (UA) (NEGATIVE) mg/dL Urine Ketones (NEGATIVE) mg/dL Urine Occult Blood (NEGATIVE) Urine Nitrite (NEGATIVE) Urine Bilirubin (NEGATIVE) Urine Ictotest Urine Urobilinogen (<2.0) EU/dL Ur Leukocyte Esterase (NEGATIVE) U Hyaline Cast (Auto) (0-2/LPF) Urine RBC (0-2/HPF) Urine WBC (0-5/HPF) Ur Epithelial Cells (NONE-FEW) Urine Bacteria (NEGATIVE) SARS-CoV-2 RNA (RT-PCR) NEGATIVE (NEGATIVE) Result Diagrams: 09/13/19 09:37 09/13/19 09:37 Sepsis Event Note - Evaluation Sepsis Screening Result: Possible Severe Sepsis Risk - Focused Exam Vital Signs: Vital Signs Temp Temp Temp Pulse Resp BP BP 09/13/19 13:29 99 24 H 77/32 L 09/13/19 13:01 91/43 L 09/13/19 12:56 99 20 84/49 L 09/13/19 11:46 98.0 F 101 H 102/57 L 09/13/19 11:31 80/50 L 09/13/19 11:25 87/48 L 09/13/19 11:20 76/35 L 09/13/19 11:15 108 H 20 68/42 L 09/13/19 10:54 101 F H 09/13/19 10:48 107 H 18 68/38 L 09/13/19 10:44 72/36 L 09/13/19 10:22 101 F H 116 H 20 82/43 L 09/13/19 10:12 118 H 22 H 88/38 L 09/13/19 09:30 98.8 F 91 28 H 143/114 H Pulse Ox 09/13/19 13:29 97 09/13/19 13:01 09/13/19 12:56 98 09/13/19 11:46 09/13/19 11:31 09/13/19 11:25 09/13/19 11:20 09/13/19 11:15 96 09/13/19 10:54 09/13/19 10:48 98 09/13/19 10:44 09/13/19 10:22 95 09/13/19 10:12 95 09/13/19 09:30 93 L Date Exam was Performed: 09/13/19 Time Exam was Performed: 17:16 Problem List Initiated/Reviewed/Updated: Yes Orders Last 24hrs: Active Orders 24 hr Category Date Time Status EKG Documentation Completion [RC] STAT Care 09/13/19 09:40 Active CULTURE BLOOD [BC] Stat Lab 09/13/19 09:37 Received CULTURE BLOOD [BC] Stat Lab 09/13/19 09:57 Received CULTURE URINE [RM] Stat Lab 09/13/19 09:40 Received PROCALCITONIN [REF] Stat Lab 09/13/19 09:37 Received Norepinephrine Bit/0.9 % NaCl [Norepinephr-0.9% NaCl 4 Med 09/13/19 11:00 Active mg/250] 4 mg in 250 ml IV TITRATE BiPAP [RESPCARE] Stat Oth 09/13/19 10:34 Active Blood Culture x2 Reflex Set [OM.PC] Stat Oth 09/13/19 09:40 Ordered Medication Orders Norepinephrine Bitartrate (Norepinephr-0.9% Nacl 4 Mg/250) 4 mg in 250 mls @ 7.5 mls/hr IV TITRATE MARIANNA; Protocol Last Titration: 09/13/19 12:56 Dose: 12 mcg/min, 45 mls/hr Titration: 09/13/19 11:37 Dose: 10 mcg/min, 37.5 mls/hr Titration: 09/13/19 11:31 Dose: 8 mcg/min, 30 mls/hr Titration: 09/13/19 11:26 Dose: 6 mcg/min, 22.5 mls/hr Titration: 09/13/19 11:21 Dose: 4 mcg/min, 15 mls/hr Admin: 09/13/19 11:14 Dose: 2 mcg/min, 7.5 mls/hr Assessment/Plan Comment:: 1. Admit as inpatient to ICU 2. Code status- full 3. Vitals per routine 4. I/Os strict 5. Diet- NPO 6. DVT prophylaxis- continue home Eliquis 7. Septic shock secondary to UTI with acute hypoxic respiratory failure- Requiring high dose of Levophed, will start Dopamine drip due to kidney function and attempt to wean off Levophed. Start Vancomycin and Zosyn. Continue BiPAP Blood culture and urine culture pending. Monitor strict I/Os. Anesthesia to place A-line. Check ABG 8. UTI with indwelling catheter- change Ramirez, on antibiotics, UC pending 9. ESTEE-strict I/Os, trend BUN/Cr, FeNa labs, Will get US 10. Elevated D- Dimer and respiratory failure- unable to do CTA due to kidney function, not stable enough at this time for V/Q scan. Will get US LE to check for DVT. 11. Hyperglycemia- accuchecks and sliding scale 12. Chronic conditions- CHF, Afib, CAD- hold BP meds due to hypotension. Monitor on telemetry. <Paula Oneill - Last Filed: 09/21/19 11:02> H&P History of Present Illness - General Admit Problem/Dx: Admission Diagnosis/Problem Admission Diagnosis/Problem Septic shock - History of Present Illness Initial Comments - Free Text/Narative: I performed a history and physical exam of the patient and discussed management with resident. I have reviewed the residents note and agree with documented findings and plan unless otherwise specified in my note. Exam - Vital Signs Vital Signs: Last Vital Signs Temp 36.4 C 09/21/19 08:00 Pulse 65 09/21/19 08:30 Resp 18 09/21/19 08:00 BP 139/71 09/21/19 08:30 Pulse Ox 91 L 09/21/19 08:00 - Patient Data Lab Results Last 24 hrs: Laboratory Results - last 24 hr 09/20/19 09/20/19 09/20/19 Range/Units 11:05 11:32 17:30 WBC (4.0-11.0) K/uL RBC (4.50-5.90) M/uL Hgb (13.0-17.0) g/dL Hct (38.0-50.0) % MCV (80.0-98.0) fL MCH (27.0-32.0) pg MCHC (31.0-37.0) g/dL RDW Std Deviation (28.0-62.0) fl RDW Coeff of Yanick (11.0-15.0) % Plt Count (150-400) K/uL MPV (7.40-12.00) fL Add Manual Diff Neutrophils % (Manual) (48.0-80.0) % Band Neutrophils % % Lymphocytes % (Manual) (16.0-40.0) % Monocytes % (Manual) (0.0-15.0) % Eosinophils % (Manual) (0.0-7.0) % Basophils % (Manual) (0.0-1.5) % Nucleated RBC % /100WBC Absolute Seg Neuts (1.4-5.7) Band Neutrophils # Lymphocytes # (Manual) (0.6-2.4) Monocytes # (Manual) (0.0-0.8) Eosinophils # (Manual) (0.0-0.7) Basophils # (Manual) (0.0-0.1) Nucleated RBCs # K/uL Sodium (136-148) mmol/L Potassium (3.5-5.1) mmol/L Chloride (98-107) mmol/L Carbon Dioxide (21.0-32.0) mmol/L BUN (7.0-18.0) mg/dL Creatinine (0.8-1.3) mg/dL Est Cr Clr Drug Dosing mL/min Estimated GFR (MDRD) ml/min Glucose (74-106) mg/dL POC Glucose 130 H 118 H (60-110) mg/dL Calcium (8.5-10.1) mg/dL Urine Color DARK YELLOW Urine Appearance CLEAR Urine pH 7.5 (5.0-8.0) Ur Specific [place] 1.020 (1.001-1.035) Urine Protein 100 H (NEGATIVE) mg/dL Urine Glucose (UA) NEGATIVE (NEGATIVE) mg/dL Urine Ketones NEGATIVE (NEGATIVE) mg/dL Urine Occult Blood SMALL H (NEGATIVE) Urine Nitrite NEGATIVE (NEGATIVE) Urine Bilirubin NEGATIVE (NEGATIVE) Urine Urobilinogen 4.0 H (<2.0) EU/dL Ur Leukocyte Esterase NEGATIVE (NEGATIVE) Urine RBC 2-5 (0-2/HPF) Urine WBC 1-4 (0-5/HPF) Ur Epithelial Cells RARE (NONE-FEW) Urine Bacteria RARE (NEGATIVE) 09/20/19 09/21/19 09/21/19 Range/Units 21:13 06:07 06:07 WBC 6.55 (4.0-11.0) K/uL RBC 3.41 L (4.50-5.90) M/uL Hgb 9.4 L (13.0-17.0) g/dL Hct 30.6 L (38.0-50.0) % MCV 89.7 (80.0-98.0) fL MCH 27.6 (27.0-32.0) pg MCHC 30.7 L (31.0-37.0) g/dL RDW Std Deviation 53.5 (28.0-62.0) fl RDW Coeff of Yanick 17 H (11.0-15.0) % Plt Count 211 (150-400) K/uL MPV 8.60 (7.40-12.00) fL Add Manual Diff YES Neutrophils % (Manual) 72 (48.0-80.0) % Band Neutrophils % 2 % Lymphocytes % (Manual) 18 (16.0-40.0) % Monocytes % (Manual) 5 (0.0-15.0) % Eosinophils % (Manual) 2 (0.0-7.0) % Basophils % (Manual) 1 (0.0-1.5) % Nucleated RBC % 0.0 /100WBC Absolute Seg Neuts 4.7 (1.4-5.7) Band Neutrophils # 0.1 Lymphocytes # (Manual) 1.2 (0.6-2.4) Monocytes # (Manual) 0.3 (0.0-0.8) Eosinophils # (Manual) 0.1 (0.0-0.7) Basophils # (Manual) 0.1 (0.0-0.1) Nucleated RBCs # 0 K/uL Sodium 140 (136-148) mmol/L Potassium 3.2 L (3.5-5.1) mmol/L Chloride 101 (98-107) mmol/L Carbon Dioxide 33.6 H (21.0-32.0) mmol/L BUN 10 (7.0-18.0) mg/dL Creatinine 1.1 (0.8-1.3) mg/dL Est Cr Clr Drug Dosing 60.20 mL/min Estimated GFR (MDRD) > 60.0 ml/min Glucose 116 H (74-106) mg/dL POC Glucose 114 H (60-110) mg/dL Calcium 8.5 (8.5-10.1) mg/dL Urine Color Urine Appearance Urine pH (5.0-8.0) Ur Specific [place] (1.001-1.035) Urine Protein (NEGATIVE) mg/dL Urine Glucose (UA) (NEGATIVE) mg/dL Urine Ketones (NEGATIVE) mg/dL Urine Occult Blood (NEGATIVE) Urine Nitrite (NEGATIVE) Urine Bilirubin (NEGATIVE) Urine Urobilinogen (<2.0) EU/dL Ur Leukocyte Esterase (NEGATIVE) Urine RBC (0-2/HPF) Urine WBC (0-5/HPF) Ur Epithelial Cells (NONE-FEW) Urine Bacteria (NEGATIVE) 09/21/19 Range/Units 06:22 WBC (4.0-11.0) K/uL RBC (4.50-5.90) M/uL Hgb (13.0-17.0) g/dL Hct (38.0-50.0) % MCV (80.0-98.0) fL MCH (27.0-32.0) pg MCHC (31.0-37.0) g/dL RDW Std Deviation (28.0-62.0) fl RDW Coeff of Yanick (11.0-15.0) % Plt Count (150-400) K/uL MPV (7.40-12.00) fL Add Manual Diff Neutrophils % (Manual) (48.0-80.0) % Band Neutrophils % % Lymphocytes % (Manual) (16.0-40.0) % Monocytes % (Manual) (0.0-15.0) % Eosinophils % (Manual) (0.0-7.0) % Basophils % (Manual) (0.0-1.5) % Nucleated RBC % /100WBC Absolute Seg Neuts (1.4-5.7) Band Neutrophils # Lymphocytes # (Manual) (0.6-2.4) Monocytes # (Manual) (0.0-0.8) Eosinophils # (Manual) (0.0-0.7) Basophils # (Manual) (0.0-0.1) Nucleated RBCs # K/uL Sodium (136-148) mmol/L Potassium (3.5-5.1) mmol/L Chloride (98-107) mmol/L Carbon Dioxide (21.0-32.0) mmol/L BUN (7.0-18.0) mg/dL Creatinine (0.8-1.3) mg/dL Est Cr Clr Drug Dosing mL/min Estimated GFR (MDRD) ml/min Glucose (74-106) mg/dL POC Glucose 107 (60-110) mg/dL Calcium (8.5-10.1) mg/dL Urine Color Urine Appearance Urine pH (5.0-8.0) Ur Specific [place] (1.001-1.035) Urine Protein (NEGATIVE) mg/dL Urine Glucose (UA) (NEGATIVE) mg/dL Urine Ketones (NEGATIVE) mg/dL Urine Occult Blood (NEGATIVE) Urine Nitrite (NEGATIVE) Urine Bilirubin (NEGATIVE) Urine Urobilinogen (<2.0) EU/dL Ur Leukocyte Esterase (NEGATIVE) Urine RBC (0-2/HPF) Urine WBC (0-5/HPF) Ur Epithelial Cells (NONE-FEW) Urine Bacteria (NEGATIVE) Result Diagrams: 09/21/19 06:07 09/21/19 06:07 Felipe Results Last 24 hrs: Microbiology 09/20/19 10:18 Aerobic Blood Culture - Preliminary Blood - Venous - Lab Draw NO GROWTH AFTER 1 DAY Anaerobic Blood Culture - Preliminary NO GROWTH AFTER 1 DAY 09/20/19 09:58 Aerobic Blood Culture - Preliminary Blood - Venous NO GROWTH AFTER 1 DAY Anaerobic Blood Culture - Preliminary NO GROWTH AFTER 1 DAY 09/16/19 10:15 Aerobic Blood Culture - Final Blood NO GROWTH AFTER 5 DAYS Anaerobic Blood Culture - Final Escherichia Coli 09/16/19 09:30 Aerobic Blood Culture - Final Blood NO GROWTH AFTER 5 DAYS Anaerobic Blood Culture - Final NO GROWTH AFTER 5 DAYS Sepsis Event Note - Focused Exam Vital Signs: Vital Signs Temp Pulse Pulse Resp BP BP Pulse Ox 09/21/19 08:30 65 139/71 09/21/19 08:00 36.4 C 65 18 139/71 91 L 09/21/19 03:44 36.6 C 73 19 140/73 93 L 09/21/19 00:00 37.1 C 85 19 133/63 92 L Date Exam was Performed: 09/21/19 Time Exam was Performed: 11:02 Orders Last 24hrs: Active Orders 24 hr Category Date Time Status Ready for Discharge [RC] PER UNIT ROUTINE Care 09/21/19 10:21 Active BASIC METABOLIC PANEL,BMP [CHEM] AM Lab 09/22/19 05:11 Ordered CBC WITH AUTO DIFF [HEME] AM Lab 09/22/19 05:11 Ordered CORONAVIRUS COVID-19 PCR PHL Stat Lab 09/21/19 10:22 Ordered CULTURE BLOOD [BC] Stat Lab 09/20/19 10:18 Results Potassium Chloride [Klor-Con 10] Med 09/21/19 14:00 Active 10 meq PO TID Medication Orders Acetaminophen (Tylenol) 650 mg PO Q4H PRN PRN Reason: Pain/Fever Last Admin: 09/20/19 22:31 Dose: 650 mg Admin: 09/19/19 03:52 Dose: 650 mg Admin: 09/18/19 11:29 Dose: 650 mg Admin: 09/17/19 21:45 Dose: 650 mg Admin: 09/17/19 08:58 Dose: 650 mg Apixaban (Eliquis) 2.5 mg PO BID MARIANNA Last Admin: 09/21/19 08:30 Dose: 2.5 mg Admin: 09/20/19 21:14 Dose: 2.5 mg Admin: 09/20/19 08:09 Dose: 2.5 mg Admin: 09/19/19 20:47 Dose: 2.5 mg Admin: 09/19/19 09:12 Dose: 2.5 mg Admin: 09/18/19 21:12 Dose: 2.5 mg Admin: 09/18/19 09:14 Dose: 2.5 mg Admin: 09/17/19 20:50 Dose: 2.5 mg Admin: 09/17/19 08:24 Dose: 2.5 mg Admin: 09/16/19 21:10 Dose: 2.5 mg Admin: 09/16/19 08:46 Dose: 2.5 mg Admin: 09/15/19 21:10 Dose: 2.5 mg Admin: 09/15/19 09:09 Dose: 2.5 mg Admin: 09/14/19 21:27 Dose: 2.5 mg Admin: 09/14/19 09:10 Dose: 2.5 mg Admin: 09/13/19 20:11 Dose: 2.5 mg Docusate Sodium (Colace) 100 mg PO BID PRN PRN Reason: Constipation Last Admin: 09/19/19 23:11 Dose: 100 mg Admin: 09/19/19 11:04 Dose: 100 mg Furosemide (Lasix) 40 mg PO BIDDIURETIC MARIANNA Last Admin: 09/21/19 08:30 Dose: 40 mg Admin: 09/20/19 14:06 Dose: 40 mg Admin: 09/20/19 10:35 Dose: 40 mg Pantoprazole Sodium 40 mg/ (Sodium Chloride) 10 mls @ 300 mls/hr IV DAILY MARIANNA Last Admin: 09/21/19 08:31 Dose: 300 mls/hr Infusion: 09/20/19 08:12 Dose: 300 mls/hr Admin: 09/20/19 08:10 Dose: 300 mls/hr Infusion: 09/19/19 09:20 Dose: 300 mls/hr Admin: 09/19/19 09:18 Dose: 300 mls/hr Infusion: 09/18/19 09:16 Dose: 300 mls/hr Admin: 09/18/19 09:14 Dose: 300 mls/hr Infusion: 09/17/19 08:25 Dose: 300 mls/hr Admin: 09/17/19 08:23 Dose: 300 mls/hr Infusion: 09/16/19 08:47 Dose: 300 mls/hr Admin: 09/16/19 08:45 Dose: 300 mls/hr Infusion: 09/15/19 09:11 Dose: 300 mls/hr Admin: 09/15/19 09:09 Dose: 300 mls/hr Infusion: 09/14/19 09:12 Dose: 300 mls/hr Admin: 09/14/19 09:10 Dose: 300 mls/hr Infusion: 09/13/19 16:36 Dose: 300 mls/hr Admin: 09/13/19 16:34 Dose: 300 mls/hr Ceftriaxone Sodium/Dextrose 2 (gm/ Premix) 50 mls @ 100 mls/hr IV Q24H [facility] Last Admin: 09/21/19 08:40 Dose: 100 mls/hr Infusion: 09/20/19 08:53 Dose: 100 mls/hr Admin: 09/20/19 08:23 Dose: 100 mls/hr Infusion: 09/19/19 09:44 Dose: 100 mls/hr Admin: 09/19/19 09:14 Dose: 100 mls/hr Insulin Aspart (Novolog) 0 unit SUBCUT WITHMEALSANDBED [facility]; Protocol Last Admin: 09/21/19 07:17 Dose: Not Given Admin: 09/20/19 21:17 Dose: Not Given Admin: 09/20/19 17:34 Dose: Not Given Admin: 09/20/19 12:47 Dose: Not Given Admin: 09/20/19 09:10 Dose: 2 unit Admin: 09/19/19 20:46 Dose: Not Given Admin: 09/19/19 17:23 Dose: Not Given Admin: 09/19/19 12:57 Dose: 2 unit Admin: 09/19/19 09:24 Dose: Not Given Admin: 09/18/19 21:10 Dose: Not Given Admin: 09/18/19 18:00 Dose: Not Given Admin: 09/18/19 12:34 Dose: Not Given Admin: 09/18/19 08:11 Dose: Not Given Admin: 09/17/19 20:59 Dose: Not Given Admin: 09/17/19 18:16 Dose: Not Given Admin: 09/17/19 13:10 Dose: Not Given Admin: 09/17/19 07:34 Dose: Not Given Admin: 09/16/19 21:11 Dose: Not Given Admin: 09/16/19 17:56 Dose: Not Given Admin: 09/16/19 11:30 Dose: Not Given Admin: 09/16/19 08:48 Dose: Not Given Admin: 09/15/19 21:15 Dose: Not Given Admin: 09/15/19 19:32 Dose: Not Given Melatonin (Melatonin) 3 mg PO BEDTIME PRN PRN Reason: Insomnia Last Admin: 09/20/19 22:32 Dose: 3 mg Admin: 09/18/19 23:19 Dose: 3 mg Admin: 09/18/19 00:25 Dose: 3 mg Metoprolol Tartrate (Lopressor) 25 mg PO Q12H MARIANNA Last Admin: 09/21/19 08:30 Dose: 25 mg Admin: 09/20/19 21:14 Dose: 25 mg Admin: 09/20/19 09:07 Dose: 25 mg Admin: 09/19/19 20:47 Dose: 25 mg Admin: 09/19/19 09:12 Dose: 25 mg Admin: 09/18/19 21:11 Dose: 25 mg Admin: 09/18/19 09:48 Dose: 25 mg Ondansetron HCl (Zofran) 4 mg IVPUSH Q4H PRN PRN Reason: Nausea/Vomiting Potassium Chloride (Klor-Con 10) 10 meq PO TID MARIANNA Simethicone (Simethicone) 80 mg PO TIDAC PRN PRN Reason: Gas Last Admin: 09/18/19 23:19 Dose: 80 mg Admin: 09/16/19 16:27 Dose: 80 mg
[2019-09-13] MEDS ORDERED: Ondansetron 4 MG/2 ML SDV IVPUSH PRN (14:11)
[2019-09-13] MEDS ORDERED: Sodium Chloride 0.9% 1,000 ML IV ONE (15:53)
--- NOTE | 2019-09-13 16:08 | PN ---
THC Physician - Brief Progress [id number]/20/2020 16:06[facility] Prabhakar Zuñiga, BRINA - AWA (YOLANDEN) - AWA CARNEYCARMEN CHAPAFaviolaDate of Service 09/13/2019 16:06HPI/Events of Note eICU Admission [id number] admitted for septic shock. History obtained primarily from review of E MR.PMH: CHF, CAD, afibHPI: Patient was found to be febrile and hypoxemic in RN home, which prompted p resentation to ED. Work up in ER revealed elevated d-dimer, ESTEE, and urinalysis suggestive of UTI. CO VID testing was performed and was negative. Patient was started on norepinephrine for hypotension kwaku t failed to improve with a 1L bolus, and admitted to ICU for further management.Camera exam: Laying i n bed. Vitals monitor reviewed. Labs: reviewedRadiology: reviewedeICU Impression and Recommendations: Septic shock, suspect secondary to UTIAgree with broad spectrum antibioticsRecommend urine culture, b lood cultures to assist with antibiotic de-escalationAgree with vasopressors as needed to maintain MA P >65. Consider continued assessment of fluid responsive status - such as assessment of CVP or IVC co llapsiblity on bedside ultrasound. We are available to assist if desired.Elevated creatinine with con cern for acute kidney injury, etiology suspected to be pre-renal from sepsisconsider urine sodium, ur ea, and creatinine for calculation of FENa and FEUrStrict I/OTrend creatinineAvoid nephrotoxic agents Acute hypoxemic respiratory failure, given BNP of 89 in setting of advanced age I suspect heart fail ure to be less likelyTachycardia with elevated D-dimer, with concern for possible VTEBPAP is reasonab le for work of breathing, otherwise recommend supplemental oxygen as neededABG to assess A-a gradient Consider V/Q scan and lower extremity Doppler for work upDVT and GI prophylaxis as appropriate.Thank you for allowing us to participate in the care of this patient.The above note transcribed with the as sistance of dictation software. Please excuse any errors.Interventions Major-Sepsis - evaluation and management, Shock - evaluation and managementElectronically Signed by: SUNDAY WOODSON) on 2019 16:07
[2019-09-13] MEDS: DOPamine/Dextrose 5%-Water 400 MG/250 ML BAG IV SCH (16:12)
--- NOTE | 2019-09-13 16:26 | PCM.SN.2 ---
- Free Text/Narrative Note: Called to ICU for arterial line placement. Strong bilateral radial pulses. Right arm prepped with betadine. Unable to get catheterization. Switch to left side. Left arm prepped with betadine. Good arterial flow on first attempt. 20g arterial catheter threads easily. Pulsatile return. Arterial line connected. Good arterial waveform on monitor. Tape and tegaderm applied.
[2019-09-13] MEDS: Pantoprazole 40 MG in Sodium Chloride 0.9% 10 ML IV SCH (16:34)
[2019-09-13 16:39] LABS: HEMOGLOBIN A1C 7.3 % (4.5-6.2)
[2019-09-13] MEDS: Piperacillin/Tazobactam 4.5 GM in Sodium Chloride 0.9% 100 ML IV SCH ×2 (16:39→23:38)
[2019-09-13] MEDS ORDERED: Vancomycin 2 GM in Sodium Chloride 0.9% 500 ML IV SCH (17:00)
[2019-09-13] MEDS ORDERED: Vancomycin 2 GM in Sodium Chloride 0.9% 500 ML IV ONE (17:00)
[2019-09-13] MEDS: Vancomycin 2 GM in Sodium Chloride 0.9% 500 ML IV SCH (17:06)
[2019-09-13] MEDS: Insulin Aspart 100 Units/ML 3 ML Pen SUBCUT SCH ×2 (18:09→21:39)
[2019-09-13] MEDS: Apixaban 2.5 MG Tab PO SCH (20:11)
[2019-09-13] MEDS ORDERED: Phenylephrine 1% 10 MG/ML SDV ONE ×3 (20:18→22:38)
[2019-09-13] MEDS: Phenylephrine 10 MG in Sodium Chloride 0.9% 99 ML IV SCH ×2 (20:39→23:04)
[2019-09-13] MEDS ORDERED: Digoxin 500 MCG/2 ML Amp IVPUSH ONE (21:15)
[2019-09-13] MEDS ORDERED: Diltiazem 25 MG/5 ML SDV IVPUSH ONE (21:48)
[2019-09-14] MEDS ORDERED: Phenylephrine 1% 10 MG/ML SDV ONE (00:53)
[2019-09-14] MEDS: Digoxin 500 MCG/2 ML Amp IVPUSH SCH ×2 (00:55→05:43)
[2019-09-14] MEDS: Phenylephrine 10 MG in Sodium Chloride 0.9% 99 ML IV SCH (01:13)
[2019-09-14] MEDS ORDERED: PHENYLEPHRINE IV SCH (01:45)
[2019-09-14] MEDS ORDERED: SODIUM CHLORIDE 0.9% IV SCH (01:45)
[2019-09-14] MEDS: Insulin Aspart 100 Units/ML 3 ML Pen SUBCUT SCH ×4 (04:46→23:15)
[2019-09-14 07:28] LABS: CARBON DIOXIDE,CO2 28.6 mmol/L (21.0-32.0); POTASSIUM,K 4.1 mmol/L (3.5-5.1)
[2019-09-14] MEDS: DOPamine/Dextrose 5%-Water 400 MG/250 ML BAG IV SCH (07:28)
[2019-09-14] MEDS: Piperacillin/Tazobactam 4.5 GM in Sodium Chloride 0.9% 100 ML IV SCH ×3 (07:30→23:21)
--- NOTE | 2019-09-14 09:04 | PCM.PN ---
<Teresita Lopez - Last Filed: 09/14/19 10:42> - General Info Date of Service: 09/14/19 Subjective Update: Patient more awake today, is able to speak. Denies chest pain or abdominal pain and thinks his breathing is getting better. - Review of Systems General: Reports: No Symptoms HEENT: Reports: No Symptoms Pulmonary: Reports: Shortness of Breath Cardiovascular: Reports: Edema. Denies: Chest Pain Gastrointestinal: Reports: No Symptoms Genitourinary: Reports: No Symptoms Musculoskeletal: Reports: No Symptoms Skin: Reports: No Symptoms Neurological: Reports: No Symptoms Psychiatric: Reports: No Symptoms - Patient Data Vitals - Most Recent: Last Vital Signs Temp 98.2 F 09/14/19 04:00 Pulse 76 09/14/19 05:43 Resp 15 09/14/19 07:00 BP 110/51 L 09/14/19 07:00 Pulse Ox 97 09/14/19 07:00 Weight - Most Recent: 141.4 kg I&O - Last 24 Hours: Intake & Output 09/13/19 09/14/19 09/14/19 22:59 06:59 14:59 Intake Total 761 Output Total 900 Balance -139 Lab Results Last 24 Hours: Laboratory Results - last 24 hr 09/13/19 09/13/19 09/13/19 Range/Units 09:37 09:37 09:37 WBC 10.14 (4.0-11.0) K/uL RBC 3.65 L (4.50-5.90) M/uL Hgb 10.1 L (13.0-17.0) g/dL Hct 32.5 L (38.0-50.0) % MCV 89.0 (80.0-98.0) fL MCH 27.7 (27.0-32.0) pg MCHC 31.1 (31.0-37.0) g/dL RDW Std Deviation 53.5 (28.0-62.0) fl RDW Coeff of [place] 16 H (11.0-15.0) % Plt Count 171 (150-400) K/uL MPV 9.10 (7.40-12.00) fL Neut % (Auto) 91.8 H (48.0-80.0) % Lymph % (Auto) 3.6 L (16.0-40.0) % [place] % (Auto) 4.5 (0.0-15.0) % Eos % (Auto) 0.0 (0.0-7.0) % Baso % (Auto) 0.1 (0.0-1.5) % Neut # (Auto) 9.3 H (1.4-5.7) K/uL Lymph # (Auto) 0.4 L (0.6-2.4) K/uL [place] # (Auto) 0.5 (0.0-0.8) K/uL Eos # (Auto) 0.0 (0.0-0.7) K/uL Baso # (Auto) 0.0 (0.0-0.1) K/uL Nucleated RBC % 0.0 /100WBC Nucleated RBCs # 0 K/uL INR 1.45 D-Dimer, Quantitative 1.25 H (0.0-0.50) mg/L FEU ABG pH (7.35-7.45) ABG pCO2 (35-45) mmHG ABG pO2 (75-100) mmHG ABG HCO3 (22-26) mEq/L ABG Total CO2 ABG Base Excess (-2.0-2.0) Lactate 1.8 (0.20-2.00) mmol/L Sodium (136-148) mmol/L Potassium (3.5-5.1) mmol/L Chloride (98-107) mmol/L Carbon Dioxide (21.0-32.0) mmol/L BUN (7.0-18.0) mg/dL Creatinine (0.8-1.3) mg/dL Est Cr Clr Drug Dosing mL/min Estimated GFR (MDRD) ml/min Glucose (74-106) mg/dL POC Glucose (60-110) mg/dL Hemoglobin A1c (4.5-6.2) % Calcium (8.5-10.1) mg/dL Total Bilirubin (0.2-1.0) mg/dL AST (15-37) IU/L ALT (14-63) IU/L Alkaline Phosphatase (46-116) U/L Troponin I (0.000-0.056) ng/mL C-Reactive Protein (0.00-0.90) mg/dL B-Natriuretic Peptide (<100) PG/ML Total Protein (6.4-8.2) g/dL Albumin (3.4-5.0) g/dL Globulin (2.6-4.0) g/dL Albumin/Globulin Ratio (0.9-1.6) TSH 3rd Generation (0.36-3.74) uIU/mL Urine Color Urine Appearance Urine pH (5.0-8.0) Ur Specific [place] (1.001-1.035) Urine Protein (NEGATIVE) mg/dL Urine Glucose (UA) (NEGATIVE) mg/dL Urine Ketones (NEGATIVE) mg/dL Urine Occult Blood (NEGATIVE) Urine Nitrite (NEGATIVE) Urine Bilirubin (NEGATIVE) Urine Ictotest Urine Urobilinogen (<2.0) EU/dL Ur Leukocyte Esterase (NEGATIVE) U Hyaline Cast (Auto) (0-2/LPF) Urine RBC (0-2/HPF) Urine WBC (0-5/HPF) Ur Epithelial Cells (NONE-FEW) Urine Bacteria (NEGATIVE) Ur Random Creatinine mg/dL Ur Random Sodium (40.0-220.0) mmol/L SARS-CoV-2 RNA (RT-PCR) (NEGATIVE) 09/13/19 09/13/19 09/13/19 Range/Units 09:37 09:37 09:37 WBC (4.0-11.0) K/uL RBC (4.50-5.90) M/uL Hgb (13.0-17.0) g/dL Hct (38.0-50.0) % MCV (80.0-98.0) fL MCH (27.0-32.0) pg MCHC (31.0-37.0) g/dL RDW Std Deviation (28.0-62.0) fl RDW Coeff of [place] (11.0-15.0) % Plt Count (150-400) K/uL MPV (7.40-12.00) fL Neut % (Auto) (48.0-80.0) % Lymph % (Auto) (16.0-40.0) % [place] % (Auto) (0.0-15.0) % Eos % (Auto) (0.0-7.0) % Baso % (Auto) (0.0-1.5) % Neut # (Auto) (1.4-5.7) K/uL Lymph # (Auto) (0.6-2.4) K/uL [place] # (Auto) (0.0-0.8) K/uL Eos # (Auto) (0.0-0.7) K/uL Baso # (Auto) (0.0-0.1) K/uL Nucleated RBC % /100WBC Nucleated RBCs # K/uL INR D-Dimer, Quantitative (0.0-0.50) mg/L FEU ABG pH (7.35-7.45) ABG pCO2 (35-45) mmHG ABG pO2 (75-100) mmHG ABG HCO3 (22-26) mEq/L ABG Total CO2 ABG Base Excess (-2.0-2.0) Lactate (0.20-2.00) mmol/L Sodium 133 L (136-148) mmol/L Potassium 4.3 (3.5-5.1) mmol/L Chloride 98 (98-107) mmol/L Carbon Dioxide 26.3 (21.0-32.0) mmol/L BUN 36 H (7.0-18.0) mg/dL Creatinine 2.0 H (0.8-1.3) mg/dL Est Cr Clr Drug Dosing 29.40 mL/min Estimated GFR (MDRD) 32.1 ml/min Glucose 181 H (74-106) mg/dL POC Glucose (60-110) mg/dL Hemoglobin A1c (4.5-6.2) % Calcium 8.8 (8.5-10.1) mg/dL Total Bilirubin 1.2 H (0.2-1.0) mg/dL AST 21 (15-37) IU/L ALT 14 (14-63) IU/L Alkaline Phosphatase 112 (46-116) U/L Troponin I < 0.050 (0.000-0.056) ng/mL C-Reactive Protein 23.50 H (0.00-0.90) mg/dL B-Natriuretic Peptide 338 H (<100) PG/ML Total Protein 7.2 (6.4-8.2) g/dL Albumin 2.4 L (3.4-5.0) g/dL Globulin 4.8 H (2.6-4.0) g/dL Albumin/Globulin Ratio 0.5 L (0.9-1.6) TSH 3rd Generation 1.23 (0.36-3.74) uIU/mL Urine Color Urine Appearance Urine pH (5.0-8.0) Ur Specific [place] (1.001-1.035) Urine Protein (NEGATIVE) mg/dL Urine Glucose (UA) (NEGATIVE) mg/dL Urine Ketones (NEGATIVE) mg/dL Urine Occult Blood (NEGATIVE) Urine Nitrite (NEGATIVE) Urine Bilirubin (NEGATIVE) Urine Ictotest Urine Urobilinogen (<2.0) EU/dL Ur Leukocyte Esterase (NEGATIVE) U Hyaline Cast (Auto) (0-2/LPF) Urine RBC (0-2/HPF) Urine WBC (0-5/HPF) Ur Epithelial Cells (NONE-FEW) Urine Bacteria (NEGATIVE) Ur Random Creatinine mg/dL Ur Random Sodium (40.0-220.0) mmol/L SARS-CoV-2 RNA (RT-PCR) (NEGATIVE) 09/13/19 09/13/19 09/13/19 Range/Units 09:40 09:40 10:06 WBC (4.0-11.0) K/uL RBC (4.50-5.90) M/uL Hgb (13.0-17.0) g/dL Hct (38.0-50.0) % MCV (80.0-98.0) fL MCH (27.0-32.0) pg MCHC (31.0-37.0) g/dL RDW Std Deviation (28.0-62.0) fl RDW Coeff of [place] (11.0-15.0) % Plt Count (150-400) K/uL MPV (7.40-12.00) fL Neut % (Auto) (48.0-80.0) % Lymph % (Auto) (16.0-40.0) % [place] % (Auto) (0.0-15.0) % Eos % (Auto) (0.0-7.0) % Baso % (Auto) (0.0-1.5) % Neut # (Auto) (1.4-5.7) K/uL Lymph # (Auto) (0.6-2.4) K/uL [place] # (Auto) (0.0-0.8) K/uL Eos # (Auto) (0.0-0.7) K/uL Baso # (Auto) (0.0-0.1) K/uL Nucleated RBC % /100WBC Nucleated RBCs # K/uL INR D-Dimer, Quantitative (0.0-0.50) mg/L FEU ABG pH (7.35-7.45) ABG pCO2 (35-45) mmHG ABG pO2 (75-100) mmHG ABG HCO3 (22-26) mEq/L ABG Total CO2 ABG Base Excess (-2.0-2.0) Lactate (0.20-2.00) mmol/L Sodium (136-148) mmol/L Potassium (3.5-5.1) mmol/L Chloride (98-107) mmol/L Carbon Dioxide (21.0-32.0) mmol/L BUN (7.0-18.0) mg/dL Creatinine (0.8-1.3) mg/dL Est Cr Clr Drug Dosing mL/min Estimated GFR (MDRD) ml/min Glucose (74-106) mg/dL POC Glucose (60-110) mg/dL Hemoglobin A1c (4.5-6.2) % Calcium (8.5-10.1) mg/dL Total Bilirubin (0.2-1.0) mg/dL AST (15-37) IU/L ALT (14-63) IU/L Alkaline Phosphatase (46-116) U/L Troponin I (0.000-0.056) ng/mL C-Reactive Protein (0.00-0.90) mg/dL B-Natriuretic Peptide (<100) PG/ML Total Protein (6.4-8.2) g/dL Albumin (3.4-5.0) g/dL Globulin (2.6-4.0) g/dL Albumin/Globulin Ratio (0.9-1.6) TSH 3rd Generation (0.36-3.74) uIU/mL Urine Color DARK YELLOW Urine Appearance SLT CLOUDY Urine pH 5.0 (5.0-8.0) Ur Specific [place] 1.025 (1.001-1.035) Urine Protein 100 H (NEGATIVE) mg/dL Urine Glucose (UA) NEGATIVE (NEGATIVE) mg/dL Urine Ketones NEGATIVE (NEGATIVE) mg/dL Urine Occult Blood LARGE H (NEGATIVE) Urine Nitrite NEGATIVE (NEGATIVE) Urine Bilirubin SMALL H (NEGATIVE) Urine Ictotest NEGATIVE Urine Urobilinogen 1.0 (<2.0) EU/dL Ur Leukocyte Esterase SMALL H (NEGATIVE) U Hyaline Cast (Auto) 0-3 (0-2/LPF) Urine RBC 60-80 (0-2/HPF) Urine WBC 10-15 (0-5/HPF) Ur Epithelial Cells RARE (NONE-FEW) Urine Bacteria 2+ H (NEGATIVE) Ur Random Creatinine 123.2 mg/dL Ur Random Sodium 7.0 L (40.0-220.0) mmol/L SARS-CoV-2 RNA (RT-PCR) NEGATIVE (NEGATIVE) 09/13/19 09/13/19 09/13/19 Range/Units 16:20 18:00 19:51 WBC (4.0-11.0) K/uL RBC (4.50-5.90) M/uL Hgb (13.0-17.0) g/dL Hct (38.0-50.0) % MCV (80.0-98.0) fL MCH (27.0-32.0) pg MCHC (31.0-37.0) g/dL RDW Std Deviation (28.0-62.0) fl RDW Coeff of [place] (11.0-15.0) % Plt Count (150-400) K/uL MPV (7.40-12.00) fL Neut % (Auto) (48.0-80.0) % Lymph % (Auto) (16.0-40.0) % [place] % (Auto) (0.0-15.0) % Eos % (Auto) (0.0-7.0) % Baso % (Auto) (0.0-1.5) % Neut # (Auto) (1.4-5.7) K/uL Lymph # (Auto) (0.6-2.4) K/uL [place] # (Auto) (0.0-0.8) K/uL Eos # (Auto) (0.0-0.7) K/uL Baso # (Auto) (0.0-0.1) K/uL Nucleated RBC % /100WBC Nucleated RBCs # K/uL INR D-Dimer, Quantitative (0.0-0.50) mg/L FEU ABG pH 7.363 (7.35-7.45) ABG pCO2 42 (35-45) mmHG ABG pO2 80 (75-100) mmHG ABG HCO3 24 (22-26) mEq/L ABG Total CO2 22.2 ABG Base Excess -1.7 (-2.0-2.0) Lactate (0.20-2.00) mmol/L Sodium (136-148) mmol/L Potassium (3.5-5.1) mmol/L Chloride (98-107) mmol/L Carbon Dioxide (21.0-32.0) mmol/L BUN (7.0-18.0) mg/dL Creatinine (0.8-1.3) mg/dL Est Cr Clr Drug Dosing mL/min Estimated GFR (MDRD) ml/min Glucose (74-106) mg/dL POC Glucose 191 H (60-110) mg/dL Hemoglobin A1c 7.3 H (4.5-6.2) % Calcium (8.5-10.1) mg/dL Total Bilirubin (0.2-1.0) mg/dL AST (15-37) IU/L ALT (14-63) IU/L Alkaline Phosphatase (46-116) U/L Troponin I (0.000-0.056) ng/mL C-Reactive Protein (0.00-0.90) mg/dL B-Natriuretic Peptide (<100) PG/ML Total Protein (6.4-8.2) g/dL Albumin (3.4-5.0) g/dL Globulin (2.6-4.0) g/dL Albumin/Globulin Ratio (0.9-1.6) TSH 3rd Generation (0.36-3.74) uIU/mL Urine Color Urine Appearance Urine pH (5.0-8.0) Ur Specific [place] (1.001-1.035) Urine Protein (NEGATIVE) mg/dL Urine Glucose (UA) (NEGATIVE) mg/dL Urine Ketones (NEGATIVE) mg/dL Urine Occult Blood (NEGATIVE) Urine Nitrite (NEGATIVE) Urine Bilirubin (NEGATIVE) Urine Ictotest Urine Urobilinogen (<2.0) EU/dL Ur Leukocyte Esterase (NEGATIVE) U Hyaline Cast (Auto) (0-2/LPF) Urine RBC (0-2/HPF) Urine WBC (0-5/HPF) Ur Epithelial Cells (NONE-FEW) Urine Bacteria (NEGATIVE) Ur Random Creatinine mg/dL Ur Random Sodium (40.0-220.0) mmol/L SARS-CoV-2 RNA (RT-PCR) (NEGATIVE) 09/14/19 09/14/19 Range/Units 06:33 06:33 WBC 10.09 (4.0-11.0) K/uL RBC 3.44 L (4.50-5.90) M/uL Hgb 9.5 L (13.0-17.0) g/dL Hct 30.9 L (38.0-50.0) % MCV 89.8 (80.0-98.0) fL MCH 27.6 (27.0-32.0) pg MCHC 30.7 L (31.0-37.0) g/dL RDW Std Deviation 53.5 (28.0-62.0) fl RDW Coeff of [place] 16 H (11.0-15.0) % Plt Count 160 (150-400) K/uL MPV 9.40 (7.40-12.00) fL Neut % (Auto) 90.2 H (48.0-80.0) % Lymph % (Auto) 4.5 L (16.0-40.0) % [place] % (Auto) 5.2 (0.0-15.0) % Eos % (Auto) 0.0 (0.0-7.0) % Baso % (Auto) 0.1 (0.0-1.5) % Neut # (Auto) 9.1 H (1.4-5.7) K/uL Lymph # (Auto) 0.5 L (0.6-2.4) K/uL [place] # (Auto) 0.5 (0.0-0.8) K/uL Eos # (Auto) 0.0 (0.0-0.7) K/uL Baso # (Auto) 0.0 (0.0-0.1) K/uL Nucleated RBC % 0.0 /100WBC Nucleated RBCs # 0 K/uL INR D-Dimer, Quantitative (0.0-0.50) mg/L FEU ABG pH (7.35-7.45) ABG pCO2 (35-45) mmHG ABG pO2 (75-100) mmHG ABG HCO3 (22-26) mEq/L ABG Total CO2 ABG Base Excess (-2.0-2.0) Lactate (0.20-2.00) mmol/L Sodium 139 (136-148) mmol/L Potassium 4.1 (3.5-5.1) mmol/L Chloride 103 (98-107) mmol/L Carbon Dioxide 28.6 (21.0-32.0) mmol/L BUN 37 H (7.0-18.0) mg/dL Creatinine 1.8 H (0.8-1.3) mg/dL Est Cr Clr Drug Dosing 32.67 mL/min Estimated GFR (MDRD) 36.3 ml/min Glucose 139 H (74-106) mg/dL POC Glucose (60-110) mg/dL Hemoglobin A1c (4.5-6.2) % Calcium 8.4 L (8.5-10.1) mg/dL Total Bilirubin 1.1 H (0.2-1.0) mg/dL AST 24 (15-37) IU/L ALT 15 (14-63) IU/L Alkaline Phosphatase 97 (46-116) U/L Troponin I (0.000-0.056) ng/mL C-Reactive Protein (0.00-0.90) mg/dL B-Natriuretic Peptide (<100) PG/ML Total Protein 6.9 (6.4-8.2) g/dL Albumin 2.0 L (3.4-5.0) g/dL Globulin 4.9 H (2.6-4.0) g/dL Albumin/Globulin Ratio 0.4 L (0.9-1.6) TSH 3rd Generation (0.36-3.74) uIU/mL Urine Color Urine Appearance Urine pH (5.0-8.0) Ur Specific [place] (1.001-1.035) Urine Protein (NEGATIVE) mg/dL Urine Glucose (UA) (NEGATIVE) mg/dL Urine Ketones (NEGATIVE) mg/dL Urine Occult Blood (NEGATIVE) Urine Nitrite (NEGATIVE) Urine Bilirubin (NEGATIVE) Urine Ictotest Urine Urobilinogen (<2.0) EU/dL Ur Leukocyte Esterase (NEGATIVE) U Hyaline Cast (Auto) (0-2/LPF) Urine RBC (0-2/HPF) Urine WBC (0-5/HPF) Ur Epithelial Cells (NONE-FEW) Urine Bacteria (NEGATIVE) Ur Random Creatinine mg/dL Ur Random Sodium (40.0-220.0) mmol/L SARS-CoV-2 RNA (RT-PCR) (NEGATIVE) Felipe Results Last 24 Hours: Microbiology 09/13/19 09:57 Aerobic Blood Culture - Preliminary Blood - Venous - Lab Draw Anaerobic Blood Culture - Preliminary 09/13/19 09:37 Aerobic Blood Culture - Preliminary Blood - Venous Anaerobic Blood Culture - Preliminary Med Orders - Current: Current Medications Acetaminophen (Tylenol) 650 mg PO Q4H PRN PRN Reason: Pain/Fever Apixaban (Eliquis) 2.5 mg PO BID MARIANNA Last Admin: 09/13/19 20:11 Dose: 2.5 mg Dopamine HCl/Dextrose (Dopamine In D5w 400 Mg/250 Ml) 400 mg in 250 mls @ 10.485 mls/hr IV ASDIRECTED MARIANNA; Protocol Last Titration: 09/14/19 08:15 Dose: 0 mcg/kg/min, 0 mls/hr Piperacillin Sod/Tazobactam (Sod 4.5 gm/ Sodium Chloride) 100 mls @ 100 mls/hr IV Q8H MARIANNA Last Admin: 09/14/19 07:30 Dose: 100 mls/hr Pantoprazole Sodium 40 mg/ (Sodium Chloride) 10 mls @ 300 mls/hr IV DAILY MARIANNA Last Admin: 09/13/19 16:34 Dose: 300 mls/hr Vancomycin HCl 2 gm/ Sodium (Chloride) 500 mls @ 250 mls/hr IV Q24H MARIANNA Last Admin: 09/13/19 17:06 Dose: 250 mls/hr Phenylephrine HCl 50 mg/ (Sodium Chloride) 500 mls @ 24 mls/hr IV TITRATE MARIANNA; Protocol Last Titration: 09/14/19 07:48 Dose: 30 mcg/min, 18 mls/hr Insulin Aspart (Novolog) 0 unit SUBCUT Q6H MARIANNA; Protocol Last Admin: 09/14/19 04:46 Dose: Not Given Ondansetron HCl (Zofran) 4 mg IVPUSH Q4H PRN PRN Reason: Nausea/Vomiting Vancomycin HCl (Pharmacy To Dose - Vancomycin) 1 dose .XX ASDIRECTED MARIANNA Discontinued Medications Acetaminophen (Tylenol) 650 mg PO NOW ONE Stop: 09/13/19 10:52 Last Admin: 09/13/19 10:54 Dose: 650 mg Digoxin (Lanoxin) 500 mcg IVPUSH ONETIME ONE Stop: 09/13/19 21:16 Last Admin: 09/13/19 21:31 Dose: 500 mcg Digoxin (Lanoxin) 250 mcg IVPUSH Q4H MARIANNA Stop: 09/14/19 05:01 Last Admin: 09/14/19 05:43 Dose: Not Given Diltiazem HCl (Diltiazem) 20 mg IVPUSH ONETIME ONE Stop: 09/13/19 21:49 Last Admin: 09/13/19 23:38 Dose: 20 mg Cefepime HCl 1 gm/ Premix 50 mls @ 100 mls/hr IV ONETIME ONE Stop: 09/13/19 10:52 Last Admin: 09/13/19 10:58 Dose: 100 mls/hr Sodium Chloride (Normal Saline) 500 mls @ 1,000 mls/hr IV .BOLUS MARIANNA Last Admin: 09/13/19 10:27 Dose: 1,000 mls/hr Sodium Chloride (Normal Saline) 500 mls @ 999 mls/hr IV .BOLUS MARIANNA Norepinephrine Bitartrate (Norepinephr-0.9% Nacl 4 Mg/250) 4 mg in 250 mls @ 7.5 mls/hr IV TITRATE MARIANNA; Protocol Last Titration: 09/13/19 20:40 Dose: 0 mcg/min, 0 mls/hr Sodium Chloride (Normal Saline) 1,000 mls @ 999 mls/hr IV ONETIME ONE Stop: 09/13/19 16:53 Last Admin: 09/13/19 16:05 Dose: 999 mls/hr Phenylephrine HCl 10 mg/ (Sodium Chloride) 100 mls @ 24 mls/hr IV TITRATE MARIANNA; Protocol Last Titration: 09/14/19 03:05 Dose: 60 mcg/min, 36 mls/hr Phenylephrine HCl (Tai-Synephrine) Confirm Administered Dose 10 mg .ROUTE .STK- MED ONE Stop: 09/13/19 20:19 Last Admin: 09/13/19 20:42 Dose: Not Given Phenylephrine HCl (Tai-Synephrine) Confirm Administered Dose 10 mg .ROUTE .STK- MED ONE Stop: 09/13/19 20:29 Last Admin: 09/13/19 20:42 Dose: Not Given Phenylephrine HCl (Tai-Synephrine) Confirm Administered Dose 10 mg .ROUTE .STK- MED ONE Stop: 09/13/19 22:39 Last Admin: 09/13/19 23:03 Dose: Not Given Phenylephrine HCl (Tai-Synephrine) Confirm Administered Dose 10 mg .ROUTE .STK- MED ONE Stop: 09/14/19 00:54 Last Admin: 09/14/19 01:13 Dose: Not Given - Exam General: Alert, Cooperative Neck: Other (on BiPAP) Cardiovascular: Regular Rate, Irregular Rhythm, Tachycardia GI/Abdominal Exam: Normal Bowel Sounds, Soft, Non-Tender Extremities: Pedal Edema Skin: Warm, Dry Neurological: No New Focal Deficit Psy/Mental Status: Alert, Normal Affect, Normal Mood Sepsis Event Note - Evaluation Sepsis Screening Result: Severe Sepsis Risk - Focused Exam Vital Signs: Vital Signs Temp Pulse Resp BP BP Pulse Ox 09/14/19 07:00 15 110/51 L 97 09/14/19 06:00 14 115/54 L 120/50 L 97 09/14/19 05:43 76 09/14/19 05:00 12 107/45 L 97 09/14/19 04:00 98.2 F 13 93/47 L 98/43 L 96 09/14/19 03:00 12 104/58 L 99/40 L 92 L 09/14/19 02:00 19 99/52 L 107/46 L 89 L 09/14/19 01:00 16 100/41 L 90 L 09/14/19 00:55 117 H 09/14/19 00:00 98.1 F 21 H 87/45 L 109/44 L 89 L 09/13/19 23:00 19 81/33 L 98/42 L 92 L 09/13/19 22:00 13 104/41 L 95 09/13/19 21:31 134 H 09/13/19 21:00 14 101/42 L 101/42 L 95 Date Exam was Performed: 09/14/19 Time Exam was Performed: 10:42 - Problem List Review Problem List Initiated/Reviewed/Updated: Yes - My Orders Last 24 Hours: My Active Orders 09/13/19 14:11 Vital Signs [RC] Q1H Acetaminophen [Tylenol] 650 mg PO Q4H PRN Ondansetron [Zofran] 4 mg IVPUSH Q4H PRN 09/13/19 16:00 Pantoprazole [ProTONIX IV] 40 mg Sodium Chloride 0.9% [Normal Saline] 10 ml IV DAILY Pharmacy to Dose - Vancomycin 1 dose .XX ASDIRECTED Piperacillin/Tazobactam [Piperacil-Tazobact] 4.5 gm Sodium Chloride 0.9% [ Normal Saline] 100 ml IV Q8H 09/13/19 16:04 Blood Glucose Check, Bedside [RC] Q6HR 09/13/19 16:15 Insulin Aspart [NovoLOG] See Protocol SUBCUT Q6H 09/13/19 16:44 Resuscitation Status Stat 09/13/19 16:54 Cardiac Monitoring [RC] Q8H 09/13/19 17:00 Vancomycin 2 gm Sodium Chloride 0.9% [Normal Saline] 500 ml IV Q24H 09/13/19 21:00 Apixaban [Eliquis] 2.5 mg PO BID 09/13/19 Dinner Nothing Per Oral Diet [DIET] 09/14/19 07:03 Intake and Output Strict [RC] ASDIRECTED 09/14/19 15:59 Echo Comp wo Cont [US] Stat 09/14/19 16:49 Retroperitoneal Comp [US] Routine Venous Doppler Lwr Ext Bi [US] Routine 09/15/19 05:11 CBC WITH AUTO DIFF [HEME] AM COMPREHENSIVE METABOLIC PN,CMP [CHEM] AM 09/15/19 16:30 VANCOMYCIN TROUGH [CHEM] Routine 09/16/19 05:11 CBC WITH AUTO DIFF [HEME] AM COMPREHENSIVE METABOLIC PN,CMP [CHEM] AM - Plan Plan:: 1. Septic shock secondary to UTI with acute hypoxic respiratory failure and gram negative amilcar bacteremia- Transitioned off Levophed due to kidney function. Currently on Dopamine and Phenylephrine. Continue Vancomycin and Zosyn. Continue BiPAP as needed. Blood culture growing gram negative rods, will follow. UC pending. Monitor strict I/Os. Echo pending. 2. UTI with indwelling catheter- changed Ramirez, on antibiotics, UC pending 3. Pre-renal ESTEE- improving, strict I/Os, trend BUN/Cr, renal US pending 4. Elevated D- Dimer and respiratory failure- unable to do CTA due to kidney function, not stable enough at this time for V/Q scan. Will get US LE to check for DVT. 5. New onset DMII- accuchecks and sliding scale. HA1c 7.3 6. Chronic conditions- CHF, Afib, CAD- hold BP meds due to hypotension. Monitor on telemetry. Updated daughter- Tali <Paula Oneill - Last Filed: 09/21/19 11:03> - General Info Subjective Update: I have seen and evaluated the patient and agree with the residents note unless specified in my note - Patient Data Vitals - Most Recent: Last Vital Signs Temp 36.4 C 09/21/19 08:00 Pulse 65 09/21/19 08:30 Resp 18 09/21/19 08:00 BP 139/71 09/21/19 08:30 Pulse Ox 91 L 09/21/19 08:00 I&O - Last 24 Hours: Intake & Output 09/20/19 09/21/19 09/21/19 22:59 06:59 14:59 Intake Total 1080 250 Output Total 1450 1450 Balance -370 -1200 Lab Results Last 24 Hours: Laboratory Results - last 24 hr 09/20/19 09/20/19 09/20/19 Range/Units 11:05 11:32 17:30 WBC (4.0-11.0) K/uL RBC (4.50-5.90) M/uL Hgb (13.0-17.0) g/dL Hct (38.0-50.0) % MCV (80.0-98.0) fL MCH (27.0-32.0) pg MCHC (31.0-37.0) g/dL RDW Std Deviation (28.0-62.0) fl RDW Coeff of [place] (11.0-15.0) % Plt Count (150-400) K/uL MPV (7.40-12.00) fL Add Manual Diff Neutrophils % (Manual) (48.0-80.0) % Band Neutrophils % % Lymphocytes % (Manual) (16.0-40.0) % Monocytes % (Manual) (0.0-15.0) % Eosinophils % (Manual) (0.0-7.0) % Basophils % (Manual) (0.0-1.5) % Nucleated RBC % /100WBC Absolute Seg Neuts (1.4-5.7) Band Neutrophils # Lymphocytes # (Manual) (0.6-2.4) Monocytes # (Manual) (0.0-0.8) Eosinophils # (Manual) (0.0-0.7) Basophils # (Manual) (0.0-0.1) Nucleated RBCs # K/uL Sodium (136-148) mmol/L Potassium (3.5-5.1) mmol/L Chloride (98-107) mmol/L Carbon Dioxide (21.0-32.0) mmol/L BUN (7.0-18.0) mg/dL Creatinine (0.8-1.3) mg/dL Est Cr Clr Drug Dosing mL/min Estimated GFR (MDRD) ml/min Glucose (74-106) mg/dL POC Glucose 130 H 118 H (60-110) mg/dL Calcium (8.5-10.1) mg/dL Urine Color DARK YELLOW Urine Appearance CLEAR Urine pH 7.5 (5.0-8.0) Ur Specific [place] 1.020 (1.001-1.035) Urine Protein 100 H (NEGATIVE) mg/dL Urine Glucose (UA) NEGATIVE (NEGATIVE) mg/dL Urine Ketones NEGATIVE (NEGATIVE) mg/dL Urine Occult Blood SMALL H (NEGATIVE) Urine Nitrite NEGATIVE (NEGATIVE) Urine Bilirubin NEGATIVE (NEGATIVE) Urine Urobilinogen 4.0 H (<2.0) EU/dL Ur Leukocyte Esterase NEGATIVE (NEGATIVE) Urine RBC 2-5 (0-2/HPF) Urine WBC 1-4 (0-5/HPF) Ur Epithelial Cells RARE (NONE-FEW) Urine Bacteria RARE (NEGATIVE) 09/20/19 09/21/19 09/21/19 Range/Units 21:13 06:07 06:07 WBC 6.55 (4.0-11.0) K/uL RBC 3.41 L (4.50-5.90) M/uL Hgb 9.4 L (13.0-17.0) g/dL Hct 30.6 L (38.0-50.0) % MCV 89.7 (80.0-98.0) fL MCH 27.6 (27.0-32.0) pg MCHC 30.7 L (31.0-37.0) g/dL RDW Std Deviation 53.5 (28.0-62.0) fl RDW Coeff of [place] 17 H (11.0-15.0) % Plt Count 211 (150-400) K/uL MPV 8.60 (7.40-12.00) fL Add Manual Diff YES Neutrophils % (Manual) 72 (48.0-80.0) % Band Neutrophils % 2 % Lymphocytes % (Manual) 18 (16.0-40.0) % Monocytes % (Manual) 5 (0.0-15.0) % Eosinophils % (Manual) 2 (0.0-7.0) % Basophils % (Manual) 1 (0.0-1.5) % Nucleated RBC % 0.0 /100WBC Absolute Seg Neuts 4.7 (1.4-5.7) Band Neutrophils # 0.1 Lymphocytes # (Manual) 1.2 (0.6-2.4) Monocytes # (Manual) 0.3 (0.0-0.8) Eosinophils # (Manual) 0.1 (0.0-0.7) Basophils # (Manual) 0.1 (0.0-0.1) Nucleated RBCs # 0 K/uL Sodium 140 (136-148) mmol/L Potassium 3.2 L (3.5-5.1) mmol/L Chloride 101 (98-107) mmol/L Carbon Dioxide 33.6 H (21.0-32.0) mmol/L BUN 10 (7.0-18.0) mg/dL Creatinine 1.1 (0.8-1.3) mg/dL Est Cr Clr Drug Dosing 60.20 mL/min Estimated GFR (MDRD) > 60.0 ml/min Glucose 116 H (74-106) mg/dL POC Glucose 114 H (60-110) mg/dL Calcium 8.5 (8.5-10.1) mg/dL Urine Color Urine Appearance Urine pH (5.0-8.0) Ur Specific [place] (1.001-1.035) Urine Protein (NEGATIVE) mg/dL Urine Glucose (UA) (NEGATIVE) mg/dL Urine Ketones (NEGATIVE) mg/dL Urine Occult Blood (NEGATIVE) Urine Nitrite (NEGATIVE) Urine Bilirubin (NEGATIVE) Urine Urobilinogen (<2.0) EU/dL Ur Leukocyte Esterase (NEGATIVE) Urine RBC (0-2/HPF) Urine WBC (0-5/HPF) Ur Epithelial Cells (NONE-FEW) Urine Bacteria (NEGATIVE) 09/21/19 Range/Units 06:22 WBC (4.0-11.0) K/uL RBC (4.50-5.90) M/uL Hgb (13.0-17.0) g/dL Hct (38.0-50.0) % MCV (80.0-98.0) fL MCH (27.0-32.0) pg MCHC (31.0-37.0) g/dL RDW Std Deviation (28.0-62.0) fl RDW Coeff of [place] (11.0-15.0) % Plt Count (150-400) K/uL MPV (7.40-12.00) fL Add Manual Diff Neutrophils % (Manual) (48.0-80.0) % Band Neutrophils % % Lymphocytes % (Manual) (16.0-40.0) % Monocytes % (Manual) (0.0-15.0) % Eosinophils % (Manual) (0.0-7.0) % Basophils % (Manual) (0.0-1.5) % Nucleated RBC % /100WBC Absolute Seg Neuts (1.4-5.7) Band Neutrophils # Lymphocytes # (Manual) (0.6-2.4) Monocytes # (Manual) (0.0-0.8) Eosinophils # (Manual) (0.0-0.7) Basophils # (Manual) (0.0-0.1) Nucleated RBCs # K/uL Sodium (136-148) mmol/L Potassium (3.5-5.1) mmol/L Chloride (98-107) mmol/L Carbon Dioxide (21.0-32.0) mmol/L BUN (7.0-18.0) mg/dL Creatinine (0.8-1.3) mg/dL Est Cr Clr Drug Dosing mL/min Estimated GFR (MDRD) ml/min Glucose (74-106) mg/dL POC Glucose 107 (60-110) mg/dL Calcium (8.5-10.1) mg/dL Urine Color Urine Appearance Urine pH (5.0-8.0) Ur Specific [place] (1.001-1.035) Urine Protein (NEGATIVE) mg/dL Urine Glucose (UA) (NEGATIVE) mg/dL Urine Ketones (NEGATIVE) mg/dL Urine Occult Blood (NEGATIVE) Urine Nitrite (NEGATIVE) Urine Bilirubin (NEGATIVE) Urine Urobilinogen (<2.0) EU/dL Ur Leukocyte Esterase (NEGATIVE) Urine RBC (0-2/HPF) Urine WBC (0-5/HPF) Ur Epithelial Cells (NONE-FEW) Urine Bacteria (NEGATIVE) Felipe Results Last 24 Hours: Microbiology 09/20/19 10:18 Aerobic Blood Culture - Preliminary Blood - Venous - Lab Draw NO GROWTH AFTER 1 DAY Anaerobic Blood Culture - Preliminary NO GROWTH AFTER 1 DAY 09/20/19 09:58 Aerobic Blood Culture - Preliminary Blood - Venous NO GROWTH AFTER 1 DAY Anaerobic Blood Culture - Preliminary NO GROWTH AFTER 1 DAY 09/16/19 10:15 Aerobic Blood Culture - Final Blood NO GROWTH AFTER 5 DAYS Anaerobic Blood Culture - Final Escherichia Coli 09/16/19 09:30 Aerobic Blood Culture - Final Blood NO GROWTH AFTER 5 DAYS Anaerobic Blood Culture - Final NO GROWTH AFTER 5 DAYS Med Orders - Current: Current Medications Acetaminophen (Tylenol) 650 mg PO Q4H PRN PRN Reason: Pain/Fever Last Admin: 09/20/19 22:31 Dose: 650 mg Apixaban (Eliquis) 2.5 mg PO BID [facility] Last Admin: 09/21/19 08:30 Dose: 2.5 mg Docusate Sodium (Colace) 100 mg PO BID PRN PRN Reason: Constipation Last Admin: 09/19/19 23:11 Dose: 100 mg Furosemide (Lasix) 40 mg PO BIDDIURETIC [facility] Last Admin: 09/21/19 08:30 Dose: 40 mg Pantoprazole Sodium 40 mg/ (Sodium Chloride) 10 mls @ 300 mls/hr IV DAILY [facility] Last Admin: 09/21/19 08:31 Dose: 300 mls/hr Ceftriaxone Sodium/Dextrose 2 (gm/ Premix) 50 mls @ 100 mls/hr IV Q24H [facility] Last Admin: 09/21/19 08:40 Dose: 100 mls/hr Insulin Aspart (Novolog) 0 unit SUBCUT WITHMEALSANDBED [facility]; Protocol Last Admin: 09/21/19 07:17 Dose: Not Given Melatonin (Melatonin) 3 mg PO BEDTIME PRN PRN Reason: Insomnia Last Admin: 09/20/19 22:32 Dose: 3 mg Metoprolol Tartrate (Lopressor) 25 mg PO Q12H [facility] Last Admin: 09/21/19 08:30 Dose: 25 mg Ondansetron HCl (Zofran) 4 mg IVPUSH Q4H PRN PRN Reason: Nausea/Vomiting Potassium Chloride (Klor-Con 10) 10 meq PO TID [facility] Simethicone (Simethicone) 80 mg PO TIDAC PRN PRN Reason: Gas Last Admin: 09/18/19 23:19 Dose: 80 mg Discontinued Medications Acetaminophen (Tylenol) 650 mg PO NOW ONE Stop: 09/13/19 10:52 Last Admin: 09/13/19 10:54 Dose: 650 mg Digoxin (Lanoxin) 500 mcg IVPUSH ONETIME ONE Stop: 09/13/19 21:16 Last Admin: 09/13/19 21:31 Dose: 500 mcg Digoxin (Lanoxin) 250 mcg IVPUSH Q4H [facility] Stop: 09/14/19 05:01 Last Admin: 09/14/19 05:43 Dose: Not Given Diltiazem HCl (Diltiazem) 20 mg IVPUSH ONETIME ONE Stop: 09/13/19 21:49 Last Admin: 09/13/19 23:38 Dose: 20 mg Furosemide (Lasix) 20 mg IVPUSH NOW ONE Stop: 09/17/19 12:36 Last Admin: 09/17/19 13:22 Dose: 20 mg Furosemide (Lasix) 40 mg IVPUSH NOW ONE Stop: 09/18/19 09:29 Last Admin: 09/18/19 09:50 Dose: 40 mg Furosemide (Lasix) 40 mg IVPUSH NOW ONE Stop: 09/19/19 10:00 Last Admin: 09/19/19 10:20 Dose: 40 mg Cefepime HCl 1 gm/ Premix 50 mls @ 100 mls/hr IV ONETIME ONE Stop: 09/13/19 10:52 Last Admin: 09/13/19 10:58 Dose: 100 mls/hr Sodium Chloride (Normal Saline) 500 mls @ 1,000 mls/hr IV .BOLUS [facility] Last Admin: 09/13/19 10:27 Dose: 1,000 mls/hr Sodium Chloride (Normal Saline) 500 mls @ 999 mls/hr IV .BOLUS [facility] Norepinephrine Bitartrate (Norepinephr-0.9% Nacl 4 Mg/250) 4 mg in 250 mls @ 7.5 mls/hr IV TITRATE [facility]; Protocol Last Titration: 09/13/19 20:40 Dose: 0 mcg/min, 0 mls/hr Dopamine HCl/Dextrose (Dopamine In D5w 400 Mg/250 Ml) 400 mg in 250 mls @ 10.485 mls/hr IV ASDIRECTED [facility]; Protocol Last Titration: 09/15/19 05:47 Dose: 0 mcg/kg/min, 0 mls/hr Sodium Chloride (Normal Saline) 1,000 mls @ 999 mls/hr IV ONETIME ONE Stop: 09/13/19 16:53 Last Admin: 09/13/19 16:05 Dose: 999 mls/hr Piperacillin Sod/Tazobactam (Sod 4.5 gm/ Sodium Chloride) 100 mls @ 100 mls/hr IV Q8H [facility] Last Admin: 09/17/19 08:17 Dose: 100 mls/hr Vancomycin HCl 2 gm/ Sodium (Chloride) 500 mls @ 250 mls/hr IV Q24H [facility] Last Admin: 09/14/19 17:49 Dose: 250 mls/hr Phenylephrine HCl 10 mg/ (Sodium Chloride) 100 mls @ 24 mls/hr IV TITRATE [facility]; Protocol Last Titration: 09/14/19 03:05 Dose: 60 mcg/min, 36 mls/hr Phenylephrine HCl 50 mg/ (Sodium Chloride) 500 mls @ 24 mls/hr IV TITRATE [facility]; Protocol Last Titration: 09/15/19 09:30 Dose: 0 mcg/min, 0 mls/hr Ceftriaxone Sodium/Dextrose 1 (gm/ Premix) 50 mls @ 100 mls/hr IV Q24H [facility] Last Admin: 09/18/19 09:15 Dose: 100 mls/hr Insulin Aspart (Novolog) 0 unit SUBCUT Q6H [facility]; Protocol Last Admin: 09/15/19 17:22 Dose: Not Given Phenylephrine HCl (Tai-Synephrine) Confirm Administered Dose 10 mg .ROUTE .STK- MED ONE Stop: 09/13/19 20:19 Last Admin: 09/13/19 20:42 Dose: Not Given Phenylephrine HCl (Tai-Synephrine) Confirm Administered Dose 10 mg .ROUTE .STK- MED ONE Stop: 09/13/19 20:29 Last Admin: 09/13/19 20:42 Dose: Not Given Phenylephrine HCl (Tai-Synephrine) Confirm Administered Dose 10 mg .ROUTE .STK- MED ONE Stop: 09/13/19 22:39 Last Admin: 09/13/19 23:03 Dose: Not Given Phenylephrine HCl (Tai-Synephrine) Confirm Administered Dose 10 mg .ROUTE .STK- MED ONE Stop: 09/14/19 00:54 Last Admin: 09/14/19 01:13 Dose: Not Given Potassium Chloride (Klor-Con M20) 40 meq PO ONETIME ONE Stop: 09/16/19 08:26 Last Admin: 09/16/19 08:47 Dose: 40 meq Potassium Chloride (Klor-Con M20) 40 meq PO ONETIME ONE Stop: 09/20/19 07:15 Last Admin: 09/20/19 08:09 Dose: 40 meq Vancomycin HCl (Pharmacy To Dose - Vancomycin) 1 dose .XX ASDIRECTED [facility] Sepsis Event Note - Focused Exam Vital Signs: Vital Signs Temp Pulse Pulse Resp BP BP Pulse Ox 09/21/19 08:30 65 139/71 09/21/19 08:00 36.4 C 65 18 139/71 91 L 09/21/19 03:44 36.6 C 73 19 140/73 93 L 09/21/19 00:00 37.1 C 85 19 133/63 92 L Date Exam was Performed: 09/21/19 Time Exam was Performed: 11:02
[2019-09-14] MEDS: Apixaban 2.5 MG Tab PO SCH ×2 (09:10→21:27)
[2019-09-14] MEDS: Pantoprazole 40 MG in Sodium Chloride 0.9% 10 ML IV SCH (09:10)
--- NOTE | 2019-09-14 11:07 | US ---
Bilateral lower extremity deep venous ultrasound: Duplex and color Doppler evaluation was obtained of the right and left common femoral, superficial femoral, popliteal, posterior tibial and peroneal veins. Normal compression and Doppler blood flow are seen within the deep veins. Impression: 1. No evidence of deep venous thrombosis within the right or left lower extremities. Diagnostic code #1 This report was dictated in MDT
--- NOTE | 2019-09-14 11:07 | US ---
Renal ultrasound: Multiple real-time images of the kidneys were obtained. Kidneys show no hydronephrosis or mass. Right kidney length is 11.6 cm and left kidney length is 12.8 cm. Bladder not evaluated as Ramirez catheter was in place. Impression: 1. No abnormality is appreciated on renal ultrasound study. Diagnostic code #1 This report was dictated in MDT
--- NOTE | 2019-09-14 11:13 | PN ---
THC Physician - Brief Progress [id number]/21/2020 11:11[facility], [place] - AWA (KEITH) - AWA CARNEYCARMEN CHAPAFaviolaDate of Service 09/14/2019 11:11HPI/Events of Note eICU Admission [id number] admitted for septic shock. History obtained primarily from review of E MR.Camera exam: Laying in bed. Vitals monitor reviewed.Labs: reviewedRadiology: reviewedeICU Impressi on and Recommendations:Septic shock, suspect secondary to UTIContinue antibioticsAgree with vasopress ors as needed to maintain MAP >65. Suggest norepinephrine per surviving sepsis campaign guidelines, d opamine is a reasonable second choice. Would use phenylephrine only if recurrent tachyarrhythmia prec luded use of norepinephrine or dopamine - if a second vasopressor was needed due to maximal dosing of first pressor, would suggest use of vasopressin. Impaired renal function is not a contraindication f or use of norepinephrine. Jacinto-protective effect of dopamine is controversial.Suggest continued asses sment of fluid responsive status - such as assessment of CVP or IVC collapsiblity on bedside ultrasou nd. DVT and GI prophylaxis as appropriate.Thank you for allowing us to participate in the care of thi s patient.The above note transcribed with the assistance of dictation software. Please excuse any err ors.Interventions Major-Sepsis - evaluation and management, Shock - evaluation and managementElectron ically Signed by: SUNDAY WOODSON) on 09/14/2019 11:12
[2019-09-14] MEDS: Vancomycin 2 GM in Sodium Chloride 0.9% 500 ML IV SCH (17:49)
[2019-09-15] MEDS: Insulin Aspart 100 Units/ML 3 ML Pen SUBCUT SCH ×5 (05:15→21:15)
[2019-09-15 07:25] LABS: CARBON DIOXIDE,CO2 28.8 mmol/L (21.0-32.0); POTASSIUM,K 3.4 mmol/L (3.5-5.1)
--- NOTE | 2019-09-15 09:02 | PCM.PN ---
- General Info Date of Service: 09/15/19 Subjective Update: The patient reports he is feeling better. Patient was on 6 L high flow yesterday, did desat down to 88% and they increased to 8L. He did not require BiPAP and is back down to 6L. Denies chest pain. Reports he is hungry and wants to eat more. Nursing is concerned about his ability to swallow, he coughed and choked with clear liquids. - Review of Systems General: Reports: No Symptoms HEENT: Reports: No Symptoms Pulmonary: Reports: Shortness of Breath Cardiovascular: Reports: Edema. Denies: Chest Pain Gastrointestinal: Reports: No Symptoms Genitourinary: Reports: No Symptoms Musculoskeletal: Reports: No Symptoms Skin: Reports: No Symptoms Neurological: Reports: No Symptoms Psychiatric: Reports: No Symptoms - Patient Data Vitals - Most Recent: Last Vital Signs Temp 97.5 F 09/15/19 04:00 Pulse 85 09/14/19 08:00 Resp 14 09/15/19 07:00 BP 111/47 L 09/15/19 07:00 Pulse Ox 95 09/15/19 07:00 Weight - Most Recent: 142.6 kg I&O - Last 24 Hours: Intake & Output 09/14/19 09/15/19 09/15/19 22:59 06:59 14:59 Intake Total 997 1262 Output Total 200 850 205 Balance 797 412 -205 Lab Results Last 24 Hours: Laboratory Results - last 24 hr 09/13/19 09/13/19 09/13/19 Range/Units 09:37 09:37 09:37 WBC 10.14 (4.0-11.0) K/uL RBC 3.65 L (4.50-5.90) M/uL Hgb 10.1 L (13.0-17.0) g/dL Hct 32.5 L (38.0-50.0) % MCV 89.0 (80.0-98.0) fL MCH 27.7 (27.0-32.0) pg MCHC 31.1 (31.0-37.0) g/dL RDW Std Deviation 53.5 (28.0-62.0) fl RDW Coeff of Yanick 16 H (11.0-15.0) % Plt Count 171 (150-400) K/uL MPV 9.10 (7.40-12.00) fL Neut % (Auto) 91.8 H (48.0-80.0) % Lymph % (Auto) 3.6 L (16.0-40.0) % Bay % (Auto) 4.5 (0.0-15.0) % Eos % (Auto) 0.0 (0.0-7.0) % Baso % (Auto) 0.1 (0.0-1.5) % Neut # (Auto) 9.3 H (1.4-5.7) K/uL Lymph # (Auto) 0.4 L (0.6-2.4) K/uL Bay # (Auto) 0.5 (0.0-0.8) K/uL Eos # (Auto) 0.0 (0.0-0.7) K/uL Baso # (Auto) 0.0 (0.0-0.1) K/uL Nucleated RBC % 0.0 /100WBC Nucleated RBCs # 0 K/uL INR 1.45 D-Dimer, Quantitative 1.25 H (0.0-0.50) mg/L FEU Lactate 1.8 (0.20-2.00) mmol/L Sodium (136-148) mmol/L Potassium (3.5-5.1) mmol/L Chloride (98-107) mmol/L Carbon Dioxide (21.0-32.0) mmol/L BUN (7.0-18.0) mg/dL Creatinine (0.8-1.3) mg/dL Est Cr Clr Drug Dosing mL/min Estimated GFR (MDRD) ml/min Glucose (74-106) mg/dL POC Glucose (60-110) mg/dL Calcium (8.5-10.1) mg/dL Total Bilirubin (0.2-1.0) mg/dL AST (15-37) IU/L ALT (14-63) IU/L Alkaline Phosphatase (46-116) U/L Troponin I (0.000-0.056) ng/mL C-Reactive Protein (0.00-0.90) mg/dL B-Natriuretic Peptide (<100) PG/ML Total Protein (6.4-8.2) g/dL Albumin (3.4-5.0) g/dL Globulin (2.6-4.0) g/dL Albumin/Globulin Ratio (0.9-1.6) Procalcitonin (<0.10) ng/mL 09/13/19 09/13/19 09/13/19 Range/Units 09:37 09:37 09:37 WBC (4.0-11.0) K/uL RBC (4.50-5.90) M/uL Hgb (13.0-17.0) g/dL Hct (38.0-50.0) % MCV (80.0-98.0) fL MCH (27.0-32.0) pg MCHC (31.0-37.0) g/dL RDW Std Deviation (28.0-62.0) fl RDW Coeff of Yanick (11.0-15.0) % Plt Count (150-400) K/uL MPV (7.40-12.00) fL Neut % (Auto) (48.0-80.0) % Lymph % (Auto) (16.0-40.0) % Bay % (Auto) (0.0-15.0) % Eos % (Auto) (0.0-7.0) % Baso % (Auto) (0.0-1.5) % Neut # (Auto) (1.4-5.7) K/uL Lymph # (Auto) (0.6-2.4) K/uL Bay # (Auto) (0.0-0.8) K/uL Eos # (Auto) (0.0-0.7) K/uL Baso # (Auto) (0.0-0.1) K/uL Nucleated RBC % /100WBC Nucleated RBCs # K/uL INR D-Dimer, Quantitative (0.0-0.50) mg/L FEU Lactate (0.20-2.00) mmol/L Sodium 133 L (136-148) mmol/L Potassium 4.3 (3.5-5.1) mmol/L Chloride 98 (98-107) mmol/L Carbon Dioxide 26.3 (21.0-32.0) mmol/L BUN 36 H (7.0-18.0) mg/dL Creatinine 2.0 H (0.8-1.3) mg/dL Est Cr Clr Drug Dosing 29.40 mL/min Estimated GFR (MDRD) 32.1 ml/min Glucose 181 H (74-106) mg/dL POC Glucose (60-110) mg/dL Calcium 8.8 (8.5-10.1) mg/dL Total Bilirubin 1.2 H (0.2-1.0) mg/dL AST 21 (15-37) IU/L ALT 14 (14-63) IU/L Alkaline Phosphatase 112 (46-116) U/L Troponin I < 0.050 (0.000-0.056) ng/mL C-Reactive Protein 23.50 H (0.00-0.90) mg/dL B-Natriuretic Peptide 338 H (<100) PG/ML Total Protein 7.2 (6.4-8.2) g/dL Albumin 2.4 L (3.4-5.0) g/dL Globulin 4.8 H (2.6-4.0) g/dL Albumin/Globulin Ratio 0.5 L (0.9-1.6) Procalcitonin 14.74 H (<0.10) ng/mL 09/13/19 09/14/19 09/14/19 Range/Units 21:00 04:44 10:27 WBC (4.0-11.0) K/uL RBC (4.50-5.90) M/uL Hgb (13.0-17.0) g/dL Hct (38.0-50.0) % MCV (80.0-98.0) fL MCH (27.0-32.0) pg MCHC (31.0-37.0) g/dL RDW Std Deviation (28.0-62.0) fl RDW Coeff of Yanick (11.0-15.0) % Plt Count (150-400) K/uL MPV (7.40-12.00) fL Neut % (Auto) (48.0-80.0) % Lymph % (Auto) (16.0-40.0) % Bay % (Auto) (0.0-15.0) % Eos % (Auto) (0.0-7.0) % Baso % (Auto) (0.0-1.5) % Neut # (Auto) (1.4-5.7) K/uL Lymph # (Auto) (0.6-2.4) K/uL Bay # (Auto) (0.0-0.8) K/uL Eos # (Auto) (0.0-0.7) K/uL Baso # (Auto) (0.0-0.1) K/uL Nucleated RBC % /100WBC Nucleated RBCs # K/uL INR D-Dimer, Quantitative (0.0-0.50) mg/L FEU Lactate (0.20-2.00) mmol/L Sodium (136-148) mmol/L Potassium (3.5-5.1) mmol/L Chloride (98-107) mmol/L Carbon Dioxide (21.0-32.0) mmol/L BUN (7.0-18.0) mg/dL Creatinine (0.8-1.3) mg/dL Est Cr Clr Drug Dosing mL/min Estimated GFR (MDRD) ml/min Glucose (74-106) mg/dL POC Glucose 158 H 130 H 127 H (60-110) mg/dL Calcium (8.5-10.1) mg/dL Total Bilirubin (0.2-1.0) mg/dL AST (15-37) IU/L ALT (14-63) IU/L Alkaline Phosphatase (46-116) U/L Troponin I (0.000-0.056) ng/mL C-Reactive Protein (0.00-0.90) mg/dL B-Natriuretic Peptide (<100) PG/ML Total Protein (6.4-8.2) g/dL Albumin (3.4-5.0) g/dL Globulin (2.6-4.0) g/dL Albumin/Globulin Ratio (0.9-1.6) Procalcitonin (<0.10) ng/mL 09/14/19 09/14/19 09/15/19 Range/Units 16:32 23:14 06:16 WBC 6.63 (4.0-11.0) K/uL RBC 3.05 L (4.50-5.90) M/uL Hgb 8.5 L (13.0-17.0) g/dL Hct 27.7 L (38.0-50.0) % MCV 90.8 (80.0-98.0) fL MCH 27.9 (27.0-32.0) pg MCHC 30.7 L (31.0-37.0) g/dL RDW Std Deviation 54.2 (28.0-62.0) fl RDW Coeff of Yanick 16 H (11.0-15.0) % Plt Count 157 (150-400) K/uL MPV 9.20 (7.40-12.00) fL Neut % (Auto) 82.4 H (48.0-80.0) % Lymph % (Auto) 9.0 L (16.0-40.0) % Bay % (Auto) 6.3 (0.0-15.0) % Eos % (Auto) 2.1 (0.0-7.0) % Baso % (Auto) 0.2 (0.0-1.5) % Neut # (Auto) 5.5 (1.4-5.7) K/uL Lymph # (Auto) 0.6 (0.6-2.4) K/uL Bay # (Auto) 0.4 (0.0-0.8) K/uL Eos # (Auto) 0.1 (0.0-0.7) K/uL Baso # (Auto) 0.0 (0.0-0.1) K/uL Nucleated RBC % 0.0 /100WBC Nucleated RBCs # 0 K/uL INR D-Dimer, Quantitative (0.0-0.50) mg/L FEU Lactate (0.20-2.00) mmol/L Sodium (136-148) mmol/L Potassium (3.5-5.1) mmol/L Chloride (98-107) mmol/L Carbon Dioxide (21.0-32.0) mmol/L BUN (7.0-18.0) mg/dL Creatinine (0.8-1.3) mg/dL Est Cr Clr Drug Dosing mL/min Estimated GFR (MDRD) ml/min Glucose (74-106) mg/dL POC Glucose 126 H 150 H (60-110) mg/dL Calcium (8.5-10.1) mg/dL Total Bilirubin (0.2-1.0) mg/dL AST (15-37) IU/L ALT (14-63) IU/L Alkaline Phosphatase (46-116) U/L Troponin I (0.000-0.056) ng/mL C-Reactive Protein (0.00-0.90) mg/dL B-Natriuretic Peptide (<100) PG/ML Total Protein (6.4-8.2) g/dL Albumin (3.4-5.0) g/dL Globulin (2.6-4.0) g/dL Albumin/Globulin Ratio (0.9-1.6) Procalcitonin (<0.10) ng/mL 09/15/19 Range/Units 06:16 WBC (4.0-11.0) K/uL RBC (4.50-5.90) M/uL Hgb (13.0-17.0) g/dL Hct (38.0-50.0) % MCV (80.0-98.0) fL MCH (27.0-32.0) pg MCHC (31.0-37.0) g/dL RDW Std Deviation (28.0-62.0) fl RDW Coeff of Yanick (11.0-15.0) % Plt Count (150-400) K/uL MPV (7.40-12.00) fL Neut % (Auto) (48.0-80.0) % Lymph % (Auto) (16.0-40.0) % Bay % (Auto) (0.0-15.0) % Eos % (Auto) (0.0-7.0) % Baso % (Auto) (0.0-1.5) % Neut # (Auto) (1.4-5.7) K/uL Lymph # (Auto) (0.6-2.4) K/uL Bay # (Auto) (0.0-0.8) K/uL Eos # (Auto) (0.0-0.7) K/uL Baso # (Auto) (0.0-0.1) K/uL Nucleated RBC % /100WBC Nucleated RBCs # K/uL INR D-Dimer, Quantitative (0.0-0.50) mg/L FEU Lactate (0.20-2.00) mmol/L Sodium 139 (136-148) mmol/L Potassium 3.4 L (3.5-5.1) mmol/L Chloride 105 (98-107) mmol/L Carbon Dioxide 28.8 (21.0-32.0) mmol/L BUN 30 H (7.0-18.0) mg/dL Creatinine 1.6 H (0.8-1.3) mg/dL Est Cr Clr Drug Dosing 41.39 mL/min Estimated GFR (MDRD) 41.6 ml/min Glucose 100 (74-106) mg/dL POC Glucose (60-110) mg/dL Calcium 8.1 L (8.5-10.1) mg/dL Total Bilirubin 1.0 (0.2-1.0) mg/dL AST 53 H (15-37) IU/L ALT 28 (14-63) IU/L Alkaline Phosphatase 96 (46-116) U/L Troponin I (0.000-0.056) ng/mL C-Reactive Protein (0.00-0.90) mg/dL B-Natriuretic Peptide (<100) PG/ML Total Protein 6.2 L (6.4-8.2) g/dL Albumin 1.7 L (3.4-5.0) g/dL Globulin 4.5 H (2.6-4.0) g/dL Albumin/Globulin Ratio 0.4 L (0.9-1.6) Procalcitonin (<0.10) ng/mL Felipe Results Last 24 Hours: Microbiology 09/13/19 09:57 Aerobic Blood Culture - Final Blood - Venous - Lab Draw Anaerobic Blood Culture - Final 09/13/19 09:37 Aerobic Blood Culture - Final Blood - Venous Escherichia Coli Anaerobic Blood Culture - Final 09/13/19 09:40 Urine Culture - Final Urine, Voided Escherichia Coli 09/13/19 22:19 Aerobic Blood Culture - Preliminary Blood - Venous - Lab Draw NO GROWTH AFTER 1 DAY Anaerobic Blood Culture - Preliminary NO GROWTH AFTER 1 DAY 09/13/19 22:10 Aerobic Blood Culture - Preliminary Blood - Venous NO GROWTH AFTER 1 DAY Anaerobic Blood Culture - Preliminary NO GROWTH AFTER 1 DAY Med Orders - Current: Current Medications Acetaminophen (Tylenol) 650 mg PO Q4H PRN PRN Reason: Pain/Fever Apixaban (Eliquis) 2.5 mg PO BID [facility] Last Admin: 09/14/19 21:27 Dose: 2.5 mg Dopamine HCl/Dextrose (Dopamine In D5w 400 Mg/250 Ml) 400 mg in 250 mls @ 10.485 mls/hr IV ASDIRECTED [facility]; Protocol Last Titration: 09/15/19 05:47 Dose: 0 mcg/kg/min, 0 mls/hr Piperacillin Sod/Tazobactam (Sod 4.5 gm/ Sodium Chloride) 100 mls @ 100 mls/hr IV Q8H [facility] Last Admin: 09/14/19 23:21 Dose: 100 mls/hr Pantoprazole Sodium 40 mg/ (Sodium Chloride) 10 mls @ 300 mls/hr IV DAILY [facility] Last Admin: 09/14/19 09:10 Dose: 300 mls/hr Vancomycin HCl 2 gm/ Sodium (Chloride) 500 mls @ 250 mls/hr IV Q24H [facility] Last Admin: 09/14/19 17:49 Dose: 250 mls/hr Phenylephrine HCl 50 mg/ (Sodium Chloride) 500 mls @ 24 mls/hr IV TITRATE [facility]; Protocol Last Titration: 09/15/19 06:02 Dose: 5 mcg/min, 3 mls/hr Insulin Aspart (Novolog) 0 unit SUBCUT Q6H [facility]; Protocol Last Admin: 09/15/19 05:15 Dose: Not Given Ondansetron HCl (Zofran) 4 mg IVPUSH Q4H PRN PRN Reason: Nausea/Vomiting Vancomycin HCl (Pharmacy To Dose - Vancomycin) 1 dose .XX ASDIRECTED [facility] Discontinued Medications Acetaminophen (Tylenol) 650 mg PO NOW ONE Stop: 09/13/19 10:52 Last Admin: 09/13/19 10:54 Dose: 650 mg Digoxin (Lanoxin) 500 mcg IVPUSH ONETIME ONE Stop: 09/13/19 21:16 Last Admin: 09/13/19 21:31 Dose: 500 mcg Digoxin (Lanoxin) 250 mcg IVPUSH Q4H [facility] Stop: 09/14/19 05:01 Last Admin: 09/14/19 05:43 Dose: Not Given Diltiazem HCl (Diltiazem) 20 mg IVPUSH ONETIME ONE Stop: 09/13/19 21:49 Last Admin: 09/13/19 23:38 Dose: 20 mg Cefepime HCl 1 gm/ Premix 50 mls @ 100 mls/hr IV ONETIME ONE Stop: 09/13/19 10:52 Last Admin: 05/20/20 10:58 Dose: 100 mls/hr Sodium Chloride (Normal Saline) 500 mls @ 1,000 mls/hr IV .BOLUS [facility] Last Admin: 09/13/19 10:27 Dose: 1,000 mls/hr Sodium Chloride (Normal Saline) 500 mls @ 999 mls/hr IV .BOLUS [facility] Norepinephrine Bitartrate (Norepinephr-0.9% Nacl 4 Mg/250) 4 mg in 250 mls @ 7.5 mls/hr IV TITRATE [facility]; Protocol Last Titration: 09/13/19 20:40 Dose: 0 mcg/min, 0 mls/hr Sodium Chloride (Normal Saline) 1,000 mls @ 999 mls/hr IV ONETIME ONE Stop: 09/13/19 16:53 Last Admin: 09/13/19 16:05 Dose: 999 mls/hr Phenylephrine HCl 10 mg/ (Sodium Chloride) 100 mls @ 24 mls/hr IV TITRATE [facility]; Protocol Last Titration: 09/14/19 03:05 Dose: 60 mcg/min, 36 mls/hr Phenylephrine HCl (Tai-Synephrine) Confirm Administered Dose 10 mg .ROUTE .STK- MED ONE Stop: 09/13/19 20:19 Last Admin: 09/13/19 20:42 Dose: Not Given Phenylephrine HCl (Tai-Synephrine) Confirm Administered Dose 10 mg .ROUTE .STK- MED ONE Stop: 09/13/19 20:29 Last Admin: 09/13/19 20:42 Dose: Not Given Phenylephrine HCl (Tai-Synephrine) Confirm Administered Dose 10 mg .ROUTE .STK- MED ONE Stop: 09/13/19 22:39 Last Admin: 09/13/19 23:03 Dose: Not Given Phenylephrine HCl (Tai-Synephrine) Confirm Administered Dose 10 mg .ROUTE [employer] MED ONE Stop: 09/14/19 00:54 Last Admin: 09/14/19 01:13 Dose: Not Given - Exam General: Alert, Oriented, Cooperative Lungs: Clear to Auscultation, Normal Respiratory Effort Cardiovascular: Regular Rate, Regular Rhythm GI/Abdominal Exam: Normal Bowel Sounds, Soft, Non-Tender, No Distention Extremities: Pedal Edema Skin: Warm, Dry, Intact Neurological: No New Focal Deficit Psy/Mental Status: Alert, Normal Affect, Normal Mood Sepsis Event Note - Evaluation Sepsis Screening Result: No Definite Risk - Focused Exam Vital Signs: Vital Signs Temp Resp BP BP Pulse Ox 09/15/19 07:00 14 111/47 L 95 09/15/19 06:00 17 96/42 L 94 L 09/15/19 05:00 16 127/51 L 94 L 09/15/19 04:00 97.5 F 15 117/53 L 131/53 L 94 L 09/15/19 03:00 20 127/52 L 94 L 09/15/19 02:00 12 114/47 L 95 09/15/19 01:00 17 112/45 L 96 09/15/19 00:00 97.7 F 14 106/49 L 104/42 L 95 09/14/19 23:00 17 110/43 L 88 L 09/14/19 22:00 18 132/51 L 88 L 09/14/19 21:00 15 116/43 L 98 Date Exam was Performed: 09/15/19 Time Exam was Performed: 12:57 - Problem List Review Problem List Initiated/Reviewed/Updated: Yes - My Orders Last 24 Hours: My Active Orders 09/15/19 07:53 Consult to Speech Language Pathology [MANAGER HVAC Evaluation and Treatment] [CONS] Routine 09/15/19 16:30 VANCOMYCIN TROUGH [CHEM] Routine 09/16/19 05:11 CBC WITH AUTO DIFF [HEME] AM COMPREHENSIVE METABOLIC PN,CMP [CHEM] AM - Plan Plan:: 1. Septic shock secondary to UTI with acute hypoxic respiratory failure and gram negative amilcar bacteremia-Transitioned off Dopamine, currently on Phenylephrine. Continue Zosyn. DC Vancomycin. BiPAP as needed. Blood culture growing gram negative rods, repeat negative. UC pending. Monitor strict I/Os. Radiology was unable to complete an echo. Stated very technically difficult study. 2. UTI with indwelling catheter- changed Ramirez, on antibiotics, UC pending 3. Pre-renal ESTEE- improving, strict I/Os, trend BUN/Cr, renal US negative. Will obtain CT ab/pelvis for further evaluation. 4. Elevated D- Dimer and respiratory failure- unable to do CTA due to kidney function, not stable enough at this time for V/Q scan. US LE did not reveal any DVT. Patient has been on Eliquis for Afib. 5. New onset DMII- accuchecks and sliding scale. HA1c 7.3 6. Chronic conditions- CHF, Afib, CAD- hold BP meds due to hypotension. Monitor on telemetry. 7. Difficulty swallowing- speech therapy consult placed. He coughs and chokes with all consistencies. She would recommend barium swallow study which is not available at our facility. Discussed options with patient who did not want to be transferred to another facility. He states he has always coughed after eating and wants to continue eating. He did not want a feeding tube. Discussed the situation with daughter and son and they do not want a feeding tube. They are comfortable letting him eat knowing the risk of aspiration. Daughter states he has always coughed after meals. Patient will be placed on soft diet with aspiration precautions.
[2019-09-15] MEDS: Piperacillin/Tazobactam 4.5 GM in Sodium Chloride 0.9% 100 ML IV SCH ×3 (09:08→23:30)
[2019-09-15] MEDS: Apixaban 2.5 MG Tab PO SCH ×2 (09:09→21:10)
[2019-09-15] MEDS: Pantoprazole 40 MG in Sodium Chloride 0.9% 10 ML IV SCH (09:09)
--- NOTE | 2019-09-15 10:11 | PN ---
[facility] Physician - Brief Progress [id number]/22/2020 10:10[facility] s[facility] [place] - MWN (KEITH) - MWN JOHNCARMEN JAVIERFaviolaDate of Service 09/15/2019 10:10HPI/Events of Note eICU Admission [id number] admitted for septic shock. History obtained primarily from review of E MR.Camera exam: Laying in bed. Vitals monitor reviewed.Labs: reviewedRadiology: reviewedeICU Impressi on and Recommendations:Septic shock, suspect secondary to E. coli UTI, complicated by bacteremia. Ove rall patient appears to be improving from a clinical standpoint.Continue antibiotics, can consider di scontinuation of vancomycin given E. coli isolateAgree with repeat blood cultures to ensure bacteremi a resolvedVasopressor therapy as needed to maintain MAP >65.Suggest continued assessment of fluid res ponsive status - we are available to assist with this if desired.DVT and GI prophylaxis as appropriat e.Thank you for allowing us to participate in the care of this patient.The above note transcribed wit h the assistance of dictation software. Please excuse any errors.Interventions Major-Sepsis - evaluat ion and management, Shock - evaluation and managementElectronically Signed by: SUNDAY WOODSON MD 09/15/2019 10:10
--- NOTE | 2019-09-15 12:38 | CT ---
CT abdomen and pelvis Technique: Multiple axial sections were obtained from above the dome of the diaphragm inferiorly through the pubic symphysis. Intravenous contrast and oral contrast not given. Findings: Minimal bilateral pleural effusions are seen. Parenchymal densities are noted within both lung bases with differential including pneumonia as well as atelectasis. Extensive coronary artery calcification is noted. Prior sternotomy is noted. Heart is somewhat enlarged. Noncontrast appearance of the liver and spleen shows no focal parenchymal abnormality. Adrenal glands show no nodule. Pancreas shows no discrete abnormality. Gallbladder contains no calcified gallstones. Aorta shows atherosclerotic calcification which continues into the iliac vessels and into the branch vessels of the aorta. Ureters show no dilatation. No abnormal calcifications are seen. Inflammatory type change is seen around the left kidney with more confluent change being seen within the lower retroperitoneum anterior to the aortoiliac bifurcation and extending slightly more distal. No discrete pelvic mass or adenopathy is seen. Small fat-containing bilateral inguinal hernias are noted. Ramirez catheter is present within the bladder. Bone window settings shows scattered degenerative change throughout the spine. No acute osseous finding is appreciated. Impression: 1. Small bilateral pleural effusions. Bibasilar atelectasis versus pneumonia. 2. Slight inflammatory change around the left kidney. This may be chronic but please correlate that patient has no symptoms of pyelonephritis. 3. Inflammatory type change within the lower retroperitoneum at the level of the aortoiliac bifurcation and more distal. Without older study uncertain if this is chronic or represents something acute such as retroperitoneal fibrosis. 4. Other findings believed to be nonacute as noted above. Diagnostic code #3 This report was dictated in MDT
[2019-09-16 07:01] LABS: CARBON DIOXIDE,CO2 28.7 mmol/L (21.0-32.0); POTASSIUM,K 3.4 mmol/L (3.5-5.1)
[2019-09-16] MEDS: Piperacillin/Tazobactam 4.5 GM in Sodium Chloride 0.9% 100 ML IV SCH ×3 (07:44→23:33)
--- NOTE | 2019-09-16 08:18 | PCM.PN ---
- General Info Date of Service: 09/16/19 Subjective Update: Patient reports that he is doing well, denies trouble breathing, chest pain, or abdominal pain. Is passing stools. Good appetite Was able to be weaned off the pressors. - Review of Systems General: Reports: No Symptoms HEENT: Reports: No Symptoms Pulmonary: Reports: No Symptoms Cardiovascular: Reports: Edema Gastrointestinal: Reports: No Symptoms Genitourinary: Reports: No Symptoms Musculoskeletal: Reports: No Symptoms Skin: Reports: No Symptoms Neurological: Reports: No Symptoms Psychiatric: Reports: No Symptoms - Patient Data Vitals - Most Recent: Last Vital Signs Temp 97.2 F 09/16/19 04:00 Pulse 85 09/14/19 08:00 Resp 18 09/16/19 07:00 BP 158/70 H 09/16/19 07:00 Pulse Ox 96 09/16/19 07:00 Weight - Most Recent: 142.5 kg I&O - Last 24 Hours: Intake & Output 09/15/19 09/16/19 09/16/19 22:59 06:59 14:59 Intake Total 480 900 100 Output Total 430 600 Balance 50 300 100 Lab Results Last 24 Hours: Laboratory Results - last 24 hr 09/15/19 09/15/19 09/15/19 Range/Units 05:53 12:21 17:21 WBC (4.0-11.0) K/uL RBC (4.50-5.90) M/uL Hgb (13.0-17.0) g/dL Hct (38.0-50.0) % MCV (80.0-98.0) fL MCH (27.0-32.0) pg MCHC (31.0-37.0) g/dL RDW Std Deviation (28.0-62.0) fl RDW Coeff of Yanick (11.0-15.0) % Plt Count (150-400) K/uL MPV (7.40-12.00) fL Neut % (Auto) (48.0-80.0) % Lymph % (Auto) (16.0-40.0) % [place] % (Auto) (0.0-15.0) % Eos % (Auto) (0.0-7.0) % Baso % (Auto) (0.0-1.5) % Neut # (Auto) (1.4-5.7) K/uL Lymph # (Auto) (0.6-2.4) K/uL [place] # (Auto) (0.0-0.8) K/uL Eos # (Auto) (0.0-0.7) K/uL Baso # (Auto) (0.0-0.1) K/uL Nucleated RBC % /100WBC Nucleated RBCs # K/uL Sodium (136-148) mmol/L Potassium (3.5-5.1) mmol/L Chloride (98-107) mmol/L Carbon Dioxide (21.0-32.0) mmol/L BUN (7.0-18.0) mg/dL Creatinine (0.8-1.3) mg/dL Est Cr Clr Drug Dosing mL/min Estimated GFR (MDRD) ml/min Glucose (74-106) mg/dL POC Glucose 100 118 H 91 (60-110) mg/dL Calcium (8.5-10.1) mg/dL Magnesium (1.8-2.4) mg/dL Total Bilirubin (0.2-1.0) mg/dL AST (15-37) IU/L ALT (14-63) IU/L Alkaline Phosphatase (46-116) U/L Total Protein (6.4-8.2) g/dL Albumin (3.4-5.0) g/dL Globulin (2.6-4.0) g/dL Albumin/Globulin Ratio (0.9-1.6) 09/15/19 09/16/19 09/16/19 Range/Units 21:13 06:00 06:00 WBC 5.39 (4.0-11.0) K/uL RBC 3.29 L (4.50-5.90) M/uL Hgb 9.1 L (13.0-17.0) g/dL Hct 29.5 L (38.0-50.0) % MCV 89.7 (80.0-98.0) fL MCH 27.7 (27.0-32.0) pg MCHC 30.8 L (31.0-37.0) g/dL RDW Std Deviation 53.3 (28.0-62.0) fl RDW Coeff of Yanick 16 H (11.0-15.0) % Plt Count 155 (150-400) K/uL MPV 9.40 (7.40-12.00) fL Neut % (Auto) 75.7 (48.0-80.0) % Lymph % (Auto) 11.3 L (16.0-40.0) % [place] % (Auto) 8.5 (0.0-15.0) % Eos % (Auto) 4.3 (0.0-7.0) % Baso % (Auto) 0.2 (0.0-1.5) % Neut # (Auto) 4.1 (1.4-5.7) K/uL Lymph # (Auto) 0.6 (0.6-2.4) K/uL [place] # (Auto) 0.5 (0.0-0.8) K/uL Eos # (Auto) 0.2 (0.0-0.7) K/uL Baso # (Auto) 0.0 (0.0-0.1) K/uL Nucleated RBC % 0.0 /100WBC Nucleated RBCs # 0 K/uL Sodium 141 (136-148) mmol/L Potassium 3.4 L (3.5-5.1) mmol/L Chloride 104 (98-107) mmol/L Carbon Dioxide 28.7 (21.0-32.0) mmol/L BUN 25 H (7.0-18.0) mg/dL Creatinine 1.3 (0.8-1.3) mg/dL Est Cr Clr Drug Dosing 50.94 mL/min Estimated GFR (MDRD) 52.9 ml/min Glucose 91 (74-106) mg/dL POC Glucose 103 (60-110) mg/dL Calcium 8.0 L (8.5-10.1) mg/dL Magnesium (1.8-2.4) mg/dL Total Bilirubin 1.0 (0.2-1.0) mg/dL AST 63 H (15-37) IU/L ALT 42 (14-63) IU/L Alkaline Phosphatase 113 (46-116) U/L Total Protein 6.4 (6.4-8.2) g/dL Albumin 1.8 L (3.4-5.0) g/dL Globulin 4.6 H (2.6-4.0) g/dL Albumin/Globulin Ratio 0.4 L (0.9-1.6) 09/16/19 09/16/19 Range/Units 06:00 07:40 WBC (4.0-11.0) K/uL RBC (4.50-5.90) M/uL Hgb (13.0-17.0) g/dL Hct (38.0-50.0) % MCV (80.0-98.0) fL MCH (27.0-32.0) pg MCHC (31.0-37.0) g/dL RDW Std Deviation (28.0-62.0) fl RDW Coeff of Yanick (11.0-15.0) % Plt Count (150-400) K/uL MPV (7.40-12.00) fL Neut % (Auto) (48.0-80.0) % Lymph % (Auto) (16.0-40.0) % [place] % (Auto) (0.0-15.0) % Eos % (Auto) (0.0-7.0) % Baso % (Auto) (0.0-1.5) % Neut # (Auto) (1.4-5.7) K/uL Lymph # (Auto) (0.6-2.4) K/uL [place] # (Auto) (0.0-0.8) K/uL Eos # (Auto) (0.0-0.7) K/uL Baso # (Auto) (0.0-0.1) K/uL Nucleated RBC % /100WBC Nucleated RBCs # K/uL Sodium (136-148) mmol/L Potassium (3.5-5.1) mmol/L Chloride (98-107) mmol/L Carbon Dioxide (21.0-32.0) mmol/L BUN (7.0-18.0) mg/dL Creatinine (0.8-1.3) mg/dL Est Cr Clr Drug Dosing mL/min Estimated GFR (MDRD) ml/min Glucose (74-106) mg/dL POC Glucose 91 (60-110) mg/dL Calcium (8.5-10.1) mg/dL Magnesium 2.0 (1.8-2.4) mg/dL Total Bilirubin (0.2-1.0) mg/dL AST (15-37) IU/L ALT (14-63) IU/L Alkaline Phosphatase (46-116) U/L Total Protein (6.4-8.2) g/dL Albumin (3.4-5.0) g/dL Globulin (2.6-4.0) g/dL Albumin/Globulin Ratio (0.9-1.6) Felipe Results Last 24 Hours: Microbiology 09/13/19 22:19 Aerobic Blood Culture - Preliminary Blood - Venous - Lab Draw Anaerobic Blood Culture - Preliminary NO GROWTH AFTER 2 DAYS 09/13/19 22:10 Aerobic Blood Culture - Preliminary Blood - Venous Anaerobic Blood Culture - Preliminary NO GROWTH AFTER 2 DAYS 09/13/19 09:57 Aerobic Blood Culture - Final Blood - Venous - Lab Draw Anaerobic Blood Culture - Final 09/13/19 09:37 Aerobic Blood Culture - Final Blood - Venous Escherichia Coli Anaerobic Blood Culture - Final 09/13/19 09:40 Urine Culture - Final Urine, Voided Escherichia Coli Med Orders - Current: Current Medications Acetaminophen (Tylenol) 650 mg PO Q4H PRN PRN Reason: Pain/Fever Apixaban (Eliquis) 2.5 mg PO BID [facility] Last Admin: 09/15/19 21:10 Dose: 2.5 mg Dopamine HCl/Dextrose (Dopamine In D5w 400 Mg/250 Ml) 400 mg in 250 mls @ 10.485 mls/hr IV ASDIRECTED [facility]; Protocol Last Titration: 09/15/19 05:47 Dose: 0 mcg/kg/min, 0 mls/hr Piperacillin Sod/Tazobactam (Sod 4.5 gm/ Sodium Chloride) 100 mls @ 100 mls/hr IV Q8H [facility] Last Admin: 09/16/19 07:44 Dose: 100 mls/hr Pantoprazole Sodium 40 mg/ (Sodium Chloride) 10 mls @ 300 mls/hr IV DAILY [facility] Last Admin: 09/15/19 09:09 Dose: 300 mls/hr Phenylephrine HCl 50 mg/ (Sodium Chloride) 500 mls @ 24 mls/hr IV TITRATE [facility]; Protocol Last Titration: 09/15/19 09:30 Dose: 0 mcg/min, 0 mls/hr Insulin Aspart (Novolog) 0 unit SUBCUT WITHMEALSANDBED [facility]; Protocol Last Admin: 09/15/19 21:15 Dose: Not Given Ondansetron HCl (Zofran) 4 mg IVPUSH Q4H PRN PRN Reason: Nausea/Vomiting Discontinued Medications Acetaminophen (Tylenol) 650 mg PO NOW ONE Stop: 09/13/19 10:52 Last Admin: 09/13/19 10:54 Dose: 650 mg Digoxin (Lanoxin) 500 mcg IVPUSH ONETIME ONE Stop: 09/13/19 21:16 Last Admin: 09/13/19 21:31 Dose: 500 mcg Digoxin (Lanoxin) 250 mcg IVPUSH Q4H [facility] Stop: 09/14/19 05:01 Last Admin: 09/14/19 05:43 Dose: Not Given Diltiazem HCl (Diltiazem) 20 mg IVPUSH ONETIME ONE Stop: 09/13/19 21:49 Last Admin: 09/13/19 23:38 Dose: 20 mg Cefepime HCl 1 gm/ Premix 50 mls @ 100 mls/hr IV ONETIME ONE Stop: 09/13/19 10:52 Last Admin: 09/13/19 10:58 Dose: 100 mls/hr Sodium Chloride (Normal Saline) 500 mls @ 1,000 mls/hr IV .BOLUS [facility] Last Admin: 09/13/19 10:27 Dose: 1,000 mls/hr Sodium Chloride (Normal Saline) 500 mls @ 999 mls/hr IV .BOLUS [facility] Norepinephrine Bitartrate (Norepinephr-0.9% Nacl 4 Mg/250) 4 mg in 250 mls @ 7.5 mls/hr IV TITRATE [facility]; Protocol Last Titration: 09/13/19 20:40 Dose: 0 mcg/min, 0 mls/hr Sodium Chloride (Normal Saline) 1,000 mls @ 999 mls/hr IV ONETIME ONE Stop: 09/13/19 16:53 Last Admin: 09/13/19 16:05 Dose: 999 mls/hr Vancomycin HCl 2 gm/ Sodium (Chloride) 500 mls @ 250 mls/hr IV Q24H [facility] Last Admin: 09/14/19 17:49 Dose: 250 mls/hr Phenylephrine HCl 10 mg/ (Sodium Chloride) 100 mls @ 24 mls/hr IV TITRATE [facility]; Protocol Last Titration: 09/14/19 03:05 Dose: 60 mcg/min, 36 mls/hr Insulin Aspart (Novolog) 0 unit SUBCUT Q6H [facility]; Protocol Last Admin: 09/15/19 17:22 Dose: Not Given Phenylephrine HCl (Tai-Synephrine) Confirm Administered Dose 10 mg .ROUTE .STK- MED ONE Stop: 09/13/19 20:19 Last Admin: 09/13/19 20:42 Dose: Not Given Phenylephrine HCl (Tai-Synephrine) Confirm Administered Dose 10 mg .ROUTE .STK- MED ONE Stop: 09/13/19 20:29 Last Admin: 09/13/19 20:42 Dose: Not Given Phenylephrine HCl (Tai-Synephrine) Confirm Administered Dose 10 mg .ROUTE .STK- MED ONE Stop: 09/13/19 22:39 Last Admin: 09/13/19 23:03 Dose: Not Given Phenylephrine HCl (Tai-Synephrine) Confirm Administered Dose 10 mg .ROUTE .STK- MED ONE Stop: 09/14/19 00:54 Last Admin: 09/14/19 01:13 Dose: Not Given Vancomycin HCl (Pharmacy To Dose - Vancomycin) 1 dose .XX ASDIRECTED [facility] - Exam Quality Assessment: Supplemental Oxygen General: Alert, Oriented, Cooperative Lungs: Clear to Auscultation, Normal Respiratory Effort Cardiovascular: Irregular Rhythm GI/Abdominal Exam: Normal Bowel Sounds, Soft, Non-Tender, No Distention Extremities: Pedal Edema Skin: Warm, Dry, Intact Neurological: No New Focal Deficit Psy/Mental Status: Alert, Normal Affect, Normal Mood Sepsis Event Note - Evaluation Sepsis Screening Result: No Definite Risk - Focused Exam Vital Signs: Vital Signs Temp Resp BP BP Pulse Ox 09/16/19 07:00 18 158/70 H 96 09/16/19 06:00 17 159/66 H 94 L 09/16/19 05:00 18 149/67 H 93 L 09/16/19 04:00 97.2 F 14 120/57 L 153/64 H 91 L 09/16/19 03:00 14 133/63 94 L 09/16/19 02:00 20 121/56 L 128/58 L 94 L 09/16/19 01:00 18 132/55 L 94 L 09/16/19 00:00 98.2 F 18 120/58 L 138/61 95 09/15/19 23:00 17 135/68 95 09/15/19 22:00 16 155/73 H 95 09/15/19 21:00 15 155/73 H 93 L Date Exam was Performed: 09/16/19 Time Exam was Performed: 10:28 - Problem List Review Problem List Initiated/Reviewed/Updated: Yes - My Orders Last 24 Hours: My Active Orders 09/15/19 07:53 Consult to Speech Language Pathology [DX BOARD OPERATOR Evaluation and Treatment] [CONS] Routine 09/15/19 12:56 Aspiration Precautions [RC] DAILY 09/15/19 17:45 Insulin Aspart [NovoLOG] See Protocol SUBCUT WITHMEALSANDBED 09/15/19 Lunch Soft Diet [DIET] - Plan Plan:: 1. Septic shock secondary to UTI with acute hypoxic respiratory failure and E coli bacteremia-Transitioned off Pressors. Continue Zosyn. Has been weaned down to 3L. First set of blood cultures grew out Ecoli. Repeat blood culture growing gram negative rods. Repeat blood cultures today. Monitor strict I/Os. Radiology was unable to complete an echo. Stated very technically difficult study. 2. Ecoli UTI with indwelling catheter- changed Ramirez, on antibiotics, UC growing E coli. CT ab/pelvis showed inflammation around left kidney-possible pyelonephritis. 3. Pre-renal ESTEE- resolved, strict I/Os, trend BUN/Cr, renal US negative. 4. Elevated D- Dimer and respiratory failure- respiratory status improving.CTA not an option at this time due to kidney function. US LE did not reveal any DVT. Patient has been on Eliquis for Afib. 5. New onset DMII- accuchecks and sliding scale. HA1c 7.3 6. Chronic conditions- CHF, Afib, CAD- hold BP meds due to hypotension. Monitor on telemetry. 7. Difficulty swallowing- will eventually need barium swallow study which is not available at this facility. Family and patient want him to eat, knowing the risk of aspiration. 8. Hypokalemia- replaced, will recheck in AM
[2019-09-16] MEDS ORDERED: Potassium Chloride 20 MEQ Tab.ER PO ONE (08:25)
[2019-09-16] MEDS: Pantoprazole 40 MG in Sodium Chloride 0.9% 10 ML IV SCH (08:45)
[2019-09-16] MEDS: Apixaban 2.5 MG Tab PO SCH ×2 (08:46→21:10)
[2019-09-16] MEDS: Insulin Aspart 100 Units/ML 3 ML Pen SUBCUT SCH ×4 (08:48→21:11)
--- NOTE | 2019-09-16 08:50 | PN ---
THC Physician - Brief Progress [id number]/23/2020 08:27Prabhakar sanchez ND - AWA (KEITH) - AWA CARNEYCARMEN CHAPAFaviolaDate of Service 09/16/2019 08:27HPI/Events of Note eICU progress note:84-year-old male who presented to the hospital with septic shock secondary to E. coli UTI and acute hypoxic respiratory failure. Over the last 24 hours patient has been succe ssfully weaned off pressors and in terms of O2 requirements has been weaned down to 3 L nasal cannula .Patient laying in bed with nasal cannula present, no acute distress and seems comfortable.Vital sign s reviewedLabs/EMR/imaging reviewed.Septic shock secondary to UTI- E. Coli on urine cx and blood cx- Agree with current antibiotic regimen but can de-escalate to ceftriaxone given susceptibilities- ESTEE resolvedAcute hypoxic respiratory failure-Likely 2/2 to volume overload state, effusions and atelecta sis. -Will recommend trial of diuresis starting tomorrow with clinical stability being off pressors x 24 hours.Thank you for allowing us to participate in the care of this patient.Interventions Major-Hy poxemia - evaluation and management, Sepsis - evaluation and management, Shock - evaluation and manag ement
[2019-09-16] MEDS: Simethicone 80 MG Tab.Chew PO PRN (16:27)
[2019-09-17 06:45] LABS: CARBON DIOXIDE,CO2 30.7 mmol/L (21.0-32.0); POTASSIUM,K 3.7 mmol/L (3.5-5.1)
[2019-09-17] MEDS: Insulin Aspart 100 Units/ML 3 ML Pen SUBCUT SCH ×4 (07:34→20:59)
[2019-09-17] MEDS: Piperacillin/Tazobactam 4.5 GM in Sodium Chloride 0.9% 100 ML IV SCH (08:17)
[2019-09-17] MEDS: Pantoprazole 40 MG in Sodium Chloride 0.9% 10 ML IV SCH (08:23)
[2019-09-17] MEDS: Apixaban 2.5 MG Tab PO SCH ×2 (08:24→20:50)
[2019-09-17] MEDS: Acetaminophen 325 MG Tab PO PRN ×2 (08:58→21:45)
--- NOTE | 2019-09-17 09:34 | PN ---
THC Physician - Brief Progress [id number]/24/2020 09:27[facility] Prabhakar Zuñiga, BRINA - AWA (KEITH) - CARMEN CORREIADate of Service 09/17/2019 09:27HPI/Events of Note EICU progress note84 year old male with E.Coli BactermiaMIC's show better suspetibility to Ro cephin, which could be dosed daily instead of TID like Zosyn.Having higher heart rates on camera visi t, Afib rate 125. May be able to start low dose metoprolol today.Suggest 12.5 BID to start.Advised:C levie to Rocephin, daily dosing, total of 10 days of antibioticsOrdered:D/C ZosynStart RocephinHave r kita in the chart:LabsMic's on e.coliPatient on monitor, has elevated heart rates.Suggest:Rocephin for 7 days.Dosed daily. And can be d/c on rocephin dailyRepeat urine culture 7 days after abx are c ompleted, to see whether or not he has prostatitis which would lengthen abx to 6-8 weeks.Would increa se activity as toleratedPatient may benefit from low dose rate controlling meds.Thank you for involvi ng the EICU in the care of this patient.Will continue to follow along and monitor closely with excell ent bedside team.Interventions Minor-Communication with other healthcare providers and/or family, Gabriela kirkpatrick modifications to care plan (e.g. PRN medications for pain, fever)
[2019-09-17] MEDS: cefTRIAXone 1 GM in Premix Bag 1 BAG IV SCH (10:17)
[2019-09-17] MEDS ORDERED: Furosemide 40 MG/4 ML VIAL IVPUSH ONE (12:35)
--- NOTE | 2019-09-17 12:41 | PCM.PN ---
- General Info Date of Service: 09/17/19 - Review of Systems Systems Review Comment:: feeling better, reports back pain after sitting up in chair. - Patient Data Vitals - Most Recent: Last Vital Signs Temp 36.4 C 09/17/19 08:00 Pulse 85 09/14/19 08:00 Resp 11 L 09/17/19 11:00 BP 150/78 H 09/17/19 11:00 Pulse Ox 95 09/17/19 11:00 Weight - Most Recent: 141.4 kg I&O - Last 24 Hours: Intake & Output 09/16/19 09/17/19 09/17/19 22:59 06:59 14:59 Intake Total 900 800 Output Total 700 750 Balance 200 50 Lab Results Last 24 Hours: Laboratory Results - last 24 hr 09/16/19 09/16/19 09/17/19 Range/Units 17:30 21:08 05:50 WBC 5.30 (4.0-11.0) K/uL RBC 3.29 L (4.50-5.90) M/uL Hgb 9.0 L (13.0-17.0) g/dL Hct 29.6 L (38.0-50.0) % MCV 90.0 (80.0-98.0) fL MCH 27.4 (27.0-32.0) pg MCHC 30.4 L (31.0-37.0) g/dL RDW Std Deviation 52.8 (28.0-62.0) fl RDW Coeff of Yanick 16 H (11.0-15.0) % Plt Count 162 (150-400) K/uL MPV 9.10 (7.40-12.00) fL Add Manual Diff YES Neutrophils % (Manual) 66 (48.0-80.0) % Band Neutrophils % 3 % Lymphocytes % (Manual) 17 (16.0-40.0) % Monocytes % (Manual) 5 (0.0-15.0) % Eosinophils % (Manual) 8 H (0.0-7.0) % Basophils % (Manual) 1 (0.0-1.5) % Nucleated RBC % 0.0 /100WBC Absolute Seg Neuts 3.5 (1.4-5.7) Band Neutrophils # 0.2 Lymphocytes # (Manual) 0.9 (0.6-2.4) Monocytes # (Manual) 0.3 (0.0-0.8) Eosinophils # (Manual) 0.4 (0.0-0.7) Basophils # (Manual) 0.1 (0.0-0.1) Nucleated RBCs # 0 K/uL Sodium (136-148) mmol/L Potassium (3.5-5.1) mmol/L Chloride (98-107) mmol/L Carbon Dioxide (21.0-32.0) mmol/L BUN (7.0-18.0) mg/dL Creatinine (0.8-1.3) mg/dL Est Cr Clr Drug Dosing mL/min Estimated GFR (MDRD) ml/min Glucose (74-106) mg/dL POC Glucose 147 H 129 H (60-110) mg/dL Calcium (8.5-10.1) mg/dL 09/17/19 09/17/19 Range/Units 05:50 07:24 WBC (4.0-11.0) K/uL RBC (4.50-5.90) M/uL Hgb (13.0-17.0) g/dL Hct (38.0-50.0) % MCV (80.0-98.0) fL MCH (27.0-32.0) pg MCHC (31.0-37.0) g/dL RDW Std Deviation (28.0-62.0) fl RDW Coeff of Yanick (11.0-15.0) % Plt Count (150-400) K/uL MPV (7.40-12.00) fL Add Manual Diff Neutrophils % (Manual) (48.0-80.0) % Band Neutrophils % % Lymphocytes % (Manual) (16.0-40.0) % Monocytes % (Manual) (0.0-15.0) % Eosinophils % (Manual) (0.0-7.0) % Basophils % (Manual) (0.0-1.5) % Nucleated RBC % /100WBC Absolute Seg Neuts (1.4-5.7) Band Neutrophils # Lymphocytes # (Manual) (0.6-2.4) Monocytes # (Manual) (0.0-0.8) Eosinophils # (Manual) (0.0-0.7) Basophils # (Manual) (0.0-0.1) Nucleated RBCs # K/uL Sodium 141 (136-148) mmol/L Potassium 3.7 (3.5-5.1) mmol/L Chloride 106 (98-107) mmol/L Carbon Dioxide 30.7 (21.0-32.0) mmol/L BUN 18 (7.0-18.0) mg/dL Creatinine 1.2 (0.8-1.3) mg/dL Est Cr Clr Drug Dosing 55.18 mL/min Estimated GFR (MDRD) 58.0 ml/min Glucose 127 H (74-106) mg/dL POC Glucose 127 H (60-110) mg/dL Calcium 8.2 L (8.5-10.1) mg/dL Felipe Results Last 24 Hours: Microbiology 09/16/19 10:15 Aerobic Blood Culture - Preliminary Blood NO GROWTH AFTER 1 DAY Anaerobic Blood Culture - Preliminary 09/16/19 09:30 Aerobic Blood Culture - Preliminary Blood NO GROWTH AFTER 1 DAY Anaerobic Blood Culture - Preliminary NO GROWTH AFTER 1 DAY 09/13/19 22:19 Aerobic Blood Culture - Final Blood - Venous - Lab Draw Escherichia Coli Anaerobic Blood Culture - Preliminary NO GROWTH AFTER 3 DAYS 09/13/19 22:10 Aerobic Blood Culture - Final Blood - Venous Escherichia Coli Anaerobic Blood Culture - Preliminary NO GROWTH AFTER 3 DAYS Med Orders - Current: Current Medications Acetaminophen (Tylenol) 650 mg PO Q4H PRN PRN Reason: Pain/Fever Last Admin: 09/17/19 08:58 Dose: 650 mg Apixaban (Eliquis) 2.5 mg PO BID [facility] Last Admin: 09/17/19 08:24 Dose: 2.5 mg Dopamine HCl/Dextrose (Dopamine In D5w 400 Mg/250 Ml) 400 mg in 250 mls @ 10.485 mls/hr IV ASDIRECTED [facility]; Protocol Last Titration: 09/15/19 05:47 Dose: 0 mcg/kg/min, 0 mls/hr Pantoprazole Sodium 40 mg/ (Sodium Chloride) 10 mls @ 300 mls/hr IV DAILY [facility] Last Admin: 09/17/19 08:23 Dose: 300 mls/hr Phenylephrine HCl 50 mg/ (Sodium Chloride) 500 mls @ 24 mls/hr IV TITRATE [facility]; Protocol Last Titration: 09/15/19 09:30 Dose: 0 mcg/min, 0 mls/hr Ceftriaxone Sodium/Dextrose 1 (gm/ Premix) 50 mls @ 100 mls/hr IV Q24H [facility] Last Admin: 09/17/19 10:17 Dose: 100 mls/hr Insulin Aspart (Novolog) 0 unit SUBCUT WITHMEALSANDBED [facility]; Protocol Last Admin: 09/17/19 07:34 Dose: Not Given Ondansetron HCl (Zofran) 4 mg IVPUSH Q4H PRN PRN Reason: Nausea/Vomiting Simethicone (Simethicone) 80 mg PO TIDAC PRN PRN Reason: Gas Last Admin: 09/16/19 16:27 Dose: 80 mg Discontinued Medications Acetaminophen (Tylenol) 650 mg PO NOW ONE Stop: 09/13/19 10:52 Last Admin: 09/13/19 10:54 Dose: 650 mg Digoxin (Lanoxin) 500 mcg IVPUSH ONETIME ONE Stop: 09/13/19 21:16 Last Admin: 09/13/19 21:31 Dose: 500 mcg Digoxin (Lanoxin) 250 mcg IVPUSH Q4H [facility] Stop: 09/14/19 05:01 Last Admin: 09/14/19 05:43 Dose: Not Given Diltiazem HCl (Diltiazem) 20 mg IVPUSH ONETIME ONE Stop: 09/13/19 21:49 Last Admin: 09/13/19 23:38 Dose: 20 mg Cefepime HCl 1 gm/ Premix 50 mls @ 100 mls/hr IV ONETIME ONE Stop: 09/13/19 10:52 Last Admin: 09/13/19 10:58 Dose: 100 mls/hr Sodium Chloride (Normal Saline) 500 mls @ 1,000 mls/hr IV .BOLUS [facility]NA Last Admin: 09/13/19 10:27 Dose: 1,000 mls/hr Sodium Chloride (Normal Saline) 500 mls @ 999 mls/hr IV .BOLUS [facility] Norepinephrine Bitartrate (Norepinephr-0.9% Nacl 4 Mg/250) 4 mg in 250 mls @ 7.5 mls/hr IV TITRATE [facility]; Protocol Last Titration: 09/13/19 20:40 Dose: 0 mcg/min, 0 mls/hr Sodium Chloride (Normal Saline) 1,000 mls @ 999 mls/hr IV ONETIME ONE Stop: 09/13/19 16:53 Last Admin: 09/13/19 16:05 Dose: 999 mls/hr Piperacillin Sod/Tazobactam (Sod 4.5 gm/ Sodium Chloride) 100 mls @ 100 mls/hr IV Q8H [facility] Last Admin: 09/17/19 08:17 Dose: 100 mls/hr Vancomycin HCl 2 gm/ Sodium (Chloride) 500 mls @ 250 mls/hr IV Q24H [facility] Last Admin: 09/14/19 17:49 Dose: 250 mls/hr Phenylephrine HCl 10 mg/ (Sodium Chloride) 100 mls @ 24 mls/hr IV TITRATE [facility]NA; Protocol Last Titration: 09/14/19 03:05 Dose: 60 mcg/min, 36 mls/hr Insulin Aspart (Novolog) 0 unit SUBCUT Q6H MARIANNA; Protocol Last Admin: 09/15/19 17:22 Dose: Not Given Phenylephrine HCl (Tai-Synephrine) Confirm Administered Dose 10 mg .ROUTE .STK- MED ONE Stop: 09/13/19 20:19 Last Admin: 09/13/19 20:42 Dose: Not Given Phenylephrine HCl (Tai-Synephrine) Confirm Administered Dose 10 mg .ROUTE .STK- MED ONE Stop: 09/13/19 20:29 Last Admin: 09/13/19 20:42 Dose: Not Given Phenylephrine HCl (Tai-Synephrine) Confirm Administered Dose 10 mg .ROUTE .STK- MED ONE Stop: 09/13/19 22:39 Last Admin: 09/13/19 23:03 Dose: Not Given Phenylephrine HCl (Tai-Synephrine) Confirm Administered Dose 10 mg .ROUTE .STK- MED ONE Stop: 09/14/19 00:54 Last Admin: 09/14/19 01:13 Dose: Not Given Potassium Chloride (Klor-Con M20) 40 meq PO ONETIME ONE Stop: 09/16/19 08:26 Last Admin: 09/16/19 08:47 Dose: 40 meq Vancomycin HCl (Pharmacy To Dose - Vancomycin) 1 dose .XX ASDIRECTED MARIANNA - Exam General: Alert, Oriented Neck: Supple Lungs: Clear to Auscultation, Normal Respiratory Effort Cardiovascular: Regular Rate, Regular Rhythm Extremities: Non-Tender, No Pedal Edema Skin: Warm, Dry, Intact Sepsis Event Note - Evaluation Sepsis Screening Result: No Definite Risk - Focused Exam Vital Signs: Vital Signs Temp Temp Resp BP BP Pulse Ox 09/17/19 11:00 11 L 150/78 H 95 09/17/19 10:00 20 146/68 H 94 L 09/17/19 09:00 18 140/79 92 L 09/17/19 08:00 36.4 C 14 152/86 H 93 L 09/17/19 07:00 16 174/77 H 92 L 09/17/19 06:00 17 144/86 H 168/78 H 91 L 09/17/19 05:00 17 181/83 H 95 09/17/19 04:00 36.1 C 16 132/79 167/84 H 92 L 09/17/19 03:00 15 167/77 H 94 L 09/17/19 02:00 17 136/83 166/77 H 92 L 09/17/19 01:00 19 164/72 H 92 L Date Exam was Performed: 09/17/19 Time Exam was Performed: 12:35 - Problem List Review Problem List Initiated/Reviewed/Updated: Yes - Plan Plan:: 84 yo male admitted with septic shock with acute hypoxic respiratory failure due to E coli bacteremia from UTI. Septic shock: pressors have been weaned off, will start lasix to try and improve edema Acute hypoxic respiratory failures: weaned off bipap, on supplemental oxygen via [place] E.Coli bacteremia from UTI: will switch to Rocephin Urinary retention: has chronic indwelling catheter, which has been replaced on admision DM: conitnue sliding scale insulin
[2019-09-18] MEDS: Melatonin 3 MG Tab PO PRN ×2 (00:25→23:19)
[2019-09-18 06:34] LABS: BLOOD UREA NITROGEN,BUN 13 mg/dL (7.0-18.0); CARBON DIOXIDE,CO2 31.8 mmol/L (21.0-32.0); CHLORIDE,CL 105 mmol/L (98-107); GLUCOSE RANDOM 131 mg/dL (74-106); POTASSIUM,K 3.5 mmol/L (3.5-5.1); SODIUM,NA 141 mmol/L (136-148)
[2019-09-18] MEDS: Insulin Aspart 100 Units/ML 3 ML Pen SUBCUT SCH ×4 (08:11→21:10)
--- NOTE | 2019-09-18 08:38 | PCM.PN ---
- General Info Date of Service: 09/18/19 Subjective Update: The patient reports he feels better and wants to go back to [place]. Still requiring oxygen but has been off pressors. Having bowel movements. Good appetite. - Review of Systems General: Reports: No Symptoms HEENT: Reports: No Symptoms Pulmonary: Reports: Shortness of Breath Gastrointestinal: Reports: No Symptoms Genitourinary: Reports: No Symptoms Musculoskeletal: Reports: No Symptoms Skin: Reports: No Symptoms Neurological: Reports: No Symptoms Psychiatric: Reports: No Symptoms - Patient Data Vitals - Most Recent: Last Vital Signs Temp 97.1 F 09/18/19 08:00 Pulse 85 09/14/19 08:00 Resp 17 09/18/19 08:00 BP 141/85 H 09/18/19 08:00 Pulse Ox 93 L 09/18/19 08:00 Weight - Most Recent: 140.7 kg I&O - Last 24 Hours: Intake & Output 09/17/19 09/18/19 09/18/19 22:59 06:59 14:59 Intake Total 840 500 Output Total 1550 750 Balance -710 -250 Lab Results Last 24 Hours: Laboratory Results - last 24 hr 09/17/19 09/17/19 09/17/19 Range/Units 12:46 18:15 20:59 WBC (4.0-11.0) K/uL RBC (4.50-5.90) M/uL Hgb (13.0-17.0) g/dL Hct (38.0-50.0) % MCV (80.0-98.0) fL MCH (27.0-32.0) pg MCHC (31.0-37.0) g/dL RDW Std Deviation (28.0-62.0) fl RDW Coeff of Yanick (11.0-15.0) % Plt Count (150-400) K/uL MPV (7.40-12.00) fL Add Manual Diff Neutrophils % (Manual) (48.0-80.0) % Band Neutrophils % % Lymphocytes % (Manual) (16.0-40.0) % Monocytes % (Manual) (0.0-15.0) % Eosinophils % (Manual) (0.0-7.0) % Nucleated RBC % /100WBC Absolute Seg Neuts (1.4-5.7) Band Neutrophils # Lymphocytes # (Manual) (0.6-2.4) Monocytes # (Manual) (0.0-0.8) Eosinophils # (Manual) (0.0-0.7) Nucleated RBCs # K/uL Sodium (136-148) mmol/L Potassium (3.5-5.1) mmol/L Chloride (98-107) mmol/L Carbon Dioxide (21.0-32.0) mmol/L BUN (7.0-18.0) mg/dL Creatinine (0.8-1.3) mg/dL Est Cr Clr Drug Dosing mL/min Estimated GFR (MDRD) ml/min Glucose (74-106) mg/dL POC Glucose 146 H 123 H 133 H (60-110) mg/dL Calcium (8.5-10.1) mg/dL 09/18/19 09/18/19 09/18/19 Range/Units 06:10 06:10 06:15 WBC 6.07 (4.0-11.0) K/uL RBC 3.33 L (4.50-5.90) M/uL Hgb 9.2 L (13.0-17.0) g/dL Hct 29.9 L (38.0-50.0) % MCV 89.8 (80.0-98.0) fL MCH 27.6 (27.0-32.0) pg MCHC 30.8 L (31.0-37.0) g/dL RDW Std Deviation 52.5 (28.0-62.0) fl RDW Coeff of Yanick 16 H (11.0-15.0) % Plt Count 160 (150-400) K/uL MPV 8.90 (7.40-12.00) fL Add Manual Diff YES Neutrophils % (Manual) 74 (48.0-80.0) % Band Neutrophils % 2 % Lymphocytes % (Manual) 16 (16.0-40.0) % Monocytes % (Manual) 5 (0.0-15.0) % Eosinophils % (Manual) 3 (0.0-7.0) % Nucleated RBC % 0.6 /100WBC Absolute Seg Neuts 4.5 (1.4-5.7) Band Neutrophils # 0.1 Lymphocytes # (Manual) 1.0 (0.6-2.4) Monocytes # (Manual) 0.3 (0.0-0.8) Eosinophils # (Manual) 0.2 (0.0-0.7) Nucleated RBCs # 0 K/uL Sodium 141 (136-148) mmol/L Potassium 3.5 (3.5-5.1) mmol/L Chloride 105 (98-107) mmol/L Carbon Dioxide 31.8 (21.0-32.0) mmol/L BUN 13 (7.0-18.0) mg/dL Creatinine 1.1 (0.8-1.3) mg/dL Est Cr Clr Drug Dosing 60.20 mL/min Estimated GFR (MDRD) > 60.0 ml/min Glucose 131 H (74-106) mg/dL POC Glucose 133 H (60-110) mg/dL Calcium 8.2 L (8.5-10.1) mg/dL Felipe Results Last 24 Hours: Microbiology 09/16/19 10:15 Aerobic Blood Culture - Preliminary Blood NO GROWTH AFTER 1 DAY Anaerobic Blood Culture - Final Escherichia Coli 09/13/19 22:19 Aerobic Blood Culture - Final Blood - Venous - Lab Draw Escherichia Coli Anaerobic Blood Culture - Preliminary NO GROWTH AFTER 4 DAYS 09/13/19 22:10 Aerobic Blood Culture - Final Blood - Venous Escherichia Coli Anaerobic Blood Culture - Preliminary NO GROWTH AFTER 4 DAYS 09/16/19 09:30 Aerobic Blood Culture - Preliminary Blood NO GROWTH AFTER 1 DAY Anaerobic Blood Culture - Preliminary NO GROWTH AFTER 1 DAY Med Orders - Current: Current Medications Acetaminophen (Tylenol) 650 mg PO Q4H PRN PRN Reason: Pain/Fever Last Admin: 09/17/19 21:45 Dose: 650 mg Apixaban (Eliquis) 2.5 mg PO BID [facility] Last Admin: 09/17/19 20:50 Dose: 2.5 mg Dopamine HCl/Dextrose (Dopamine In D5w 400 Mg/250 Ml) 400 mg in 250 mls @ 10.485 mls/hr IV ASDIRECTED [facility]; Protocol Last Titration: 09/15/19 05:47 Dose: 0 mcg/kg/min, 0 mls/hr Pantoprazole Sodium 40 mg/ (Sodium Chloride) 10 mls @ 300 mls/hr IV DAILY [facility] Last Admin: 09/17/19 08:23 Dose: 300 mls/hr Phenylephrine HCl 50 mg/ (Sodium Chloride) 500 mls @ 24 mls/hr IV TITRATE [facility]; Protocol Last Titration: 09/15/19 09:30 Dose: 0 mcg/min, 0 mls/hr Ceftriaxone Sodium/Dextrose 1 (gm/ Premix) 50 mls @ 100 mls/hr IV Q24H [facility] Last Admin: 09/17/19 10:17 Dose: 100 mls/hr Insulin Aspart (Novolog) 0 unit SUBCUT WITHMEALSANDBED [facility]; Protocol Last Admin: 09/18/19 08:11 Dose: Not Given Melatonin (Melatonin) 3 mg PO BEDTIME PRN PRN Reason: Insomnia Last Admin: 09/18/19 00:25 Dose: 3 mg Ondansetron HCl (Zofran) 4 mg IVPUSH Q4H PRN PRN Reason: Nausea/Vomiting Simethicone (Simethicone) 80 mg PO TIDAC PRN PRN Reason: Gas Last Admin: 09/16/19 16:27 Dose: 80 mg Discontinued Medications Acetaminophen (Tylenol) 650 mg PO NOW ONE Stop: 09/13/19 10:52 Last Admin: 09/13/19 10:54 Dose: 650 mg Digoxin (Lanoxin) 500 mcg IVPUSH ONETIME ONE Stop: 09/13/19 21:16 Last Admin: 09/13/19 21:31 Dose: 500 mcg Digoxin (Lanoxin) 250 mcg IVPUSH Q4H [facility] Stop: 09/14/19 05:01 Last Admin: 09/14/19 05:43 Dose: Not Given Diltiazem HCl (Diltiazem) 20 mg IVPUSH ONETIME ONE Stop: 09/13/19 21:49 Last Admin: 09/13/19 23:38 Dose: 20 mg Furosemide (Lasix) 20 mg IVPUSH NOW ONE Stop: 09/17/19 12:36 Last Admin: 09/17/19 13:22 Dose: 20 mg Cefepime HCl 1 gm/ Premix 50 mls @ 100 mls/hr IV ONETIME ONE Stop: 09/13/19 10:52 Last Admin: 09/13/19 10:58 Dose: 100 mls/hr Sodium Chloride (Normal Saline) 500 mls @ 1,000 mls/hr IV .BOLUS [facility] Last Admin: 09/13/19 10:27 Dose: 1,000 mls/hr Sodium Chloride (Normal Saline) 500 mls @ 999 mls/hr IV .BOLUS [facility] Norepinephrine Bitartrate (Norepinephr-0.9% Nacl 4 Mg/250) 4 mg in 250 mls @ 7.5 mls/hr IV TITRATE [facility]; Protocol Last Titration: 09/13/19 20:40 Dose: 0 mcg/min, 0 mls/hr Sodium Chloride (Normal Saline) 1,000 mls @ 999 mls/hr IV ONETIME ONE Stop: 09/13/19 16:53 Last Admin: 09/13/19 16:05 Dose: 999 mls/hr Piperacillin Sod/Tazobactam (Sod 4.5 gm/ Sodium Chloride) 100 mls @ 100 mls/hr IV Q8H [facility] Last Admin: 09/17/19 08:17 Dose: 100 mls/hr Vancomycin HCl 2 gm/ Sodium (Chloride) 500 mls @ 250 mls/hr IV Q24H [facility] Last Admin: 09/14/19 17:49 Dose: 250 mls/hr Phenylephrine HCl 10 mg/ (Sodium Chloride) 100 mls @ 24 mls/hr IV TITRATE [facility]; Protocol Last Titration: 09/14/19 03:05 Dose: 60 mcg/min, 36 mls/hr Insulin Aspart (Novolog) 0 unit SUBCUT Q6H [facility]; Protocol Last Admin: 09/15/19 17:22 Dose: Not Given Phenylephrine HCl (Tai-Synephrine) Confirm Administered Dose 10 mg .ROUTE .STK- MED ONE Stop: 09/13/19 20:19 Last Admin: 09/13/19 20:42 Dose: Not Given Phenylephrine HCl (Tai-Synephrine) Confirm Administered Dose 10 mg .ROUTE .STK- MED ONE Stop: 09/13/19 20:29 Last Admin: 09/13/19 20:42 Dose: Not Given Phenylephrine HCl (Tai-Synephrine) Confirm Administered Dose 10 mg .ROUTE .STK- MED ONE Stop: 09/13/19 22:39 Last Admin: 09/13/19 23:03 Dose: Not Given Phenylephrine HCl (Tai-Synephrine) Confirm Administered Dose 10 mg .ROUTE .STK- MED ONE Stop: 09/14/19 00:54 Last Admin: 09/14/19 01:13 Dose: Not Given Potassium Chloride (Klor-Con M20) 40 meq PO ONETIME ONE Stop: 09/16/19 08:26 Last Admin: 09/16/19 08:47 Dose: 40 meq Vancomycin HCl (Pharmacy To Dose - Vancomycin) 1 dose .XX ASDIRECTED [facility] - Exam Quality Assessment: Supplemental Oxygen General: Alert, Oriented, Cooperative Lungs: Normal Respiratory Effort, Crackles Cardiovascular: Irregular Rhythm GI/Abdominal Exam: Normal Bowel Sounds, Soft, Non-Tender, No Distention Extremities: Pedal Edema Skin: Warm, Dry, Intact Neurological: No New Focal Deficit Psy/Mental Status: Alert, Normal Affect, Normal Mood Sepsis Event Note - Evaluation Sepsis Screening Result: No Definite Risk - Focused Exam Vital Signs: Vital Signs Temp Resp BP Pulse Ox 09/18/19 08:00 97.1 F 17 141/85 H 93 L 09/18/19 07:00 12 149/82 H 93 L 09/18/19 06:00 14 157/81 H 92 L 09/18/19 05:00 18 154/79 H 92 L 09/18/19 04:00 97.3 F 17 151/87 H 96 09/18/19 03:00 17 150/88 H 93 L 09/18/19 02:00 14 145/78 H 94 L 09/18/19 01:00 15 141/75 H 94 L 09/18/19 00:00 97.5 F 17 158/65 H 94 L 09/17/19 23:00 13 156/69 H 94 L 09/17/19 22:00 19 154/79 H 93 L 09/17/19 21:00 13 148/79 H 96 Date Exam was Performed: 09/18/19 Time Exam was Performed: 10:27 - Problem List Review Problem List Initiated/Reviewed/Updated: Yes - My Orders Last 24 Hours: My Active Orders 09/19/19 05:11 BASIC METABOLIC PANEL,BMP [CHEM] AM CBC WITH AUTO DIFF [HEME] AM - Plan Plan:: 1. Septic shock secondary to Ecoli bacteremia and UTI-Transitioned off Pressors. Switched from Zosyn to Rocephin based on sensitivities. All repeat cultures growing Ecoli. Will discontinue central line. 2. Acute hypoxic respiratory failure secondary to CHF- on supplemental oxygen, bilateral pleural effusions seen on CT. Unable to completed echo. Will give dose of Lasix today. Strict I/Os 3. DMII- accuchecks and sliding scale. HA1c 7.3 4. Difficulty swallowing- will eventually need barium swallow study which is not available at this facility. Family and patient want him to eat, knowing the risk of aspiration. 5. Hypokalemia- resolved 6. Chronic conditions- CHF, CAD, Afib, HTN- BP stable but HR increasing, will restart metoprolol but at lower dose, 25 BID. Continue Eliquis. If stable this afternoon, may transfer to medical floor. PT consult placed over the weekend.
--- NOTE | 2019-09-18 09:06 | PN ---
THC Physician - Brief Progress [id number]/25/2020 08:44[facility] Prabhakar sanchez [place] - AWA (KEITH) - AWA [facility]CARM[facility] FrannieDate of Service 09/18/2019 08:44HPI/Events of Note eICU progress note:84-year-old male admitted to the hospital with septic shock secondary to U TI with E. coli bacteremia. Over the last 24 hours patient has been doing well and continues to requ stephanie oxygen but otherwise has been off pressors.Patient seen on camera sitting in wheelchair does not seem to be in any acute distress and seems comfortable.Vital signs/labs reviewed in EMRSeptic shock-S econdary to UTI with E. coli bacteremia-Recommend 7 days total treatment with ceftriaxone starting given positive cultures on 09/15. -Recommend continued lasix with goal of -1L x 24 hours-PT cons ulted and following fo rmobilityInterventions Major-Sepsis - evaluation and management
[2019-09-18] MEDS: Apixaban 2.5 MG Tab PO SCH ×2 (09:14→21:12)
[2019-09-18] MEDS: Pantoprazole 40 MG in Sodium Chloride 0.9% 10 ML IV SCH (09:14)
[2019-09-18] MEDS: cefTRIAXone 1 GM in Premix Bag 1 BAG IV SCH (09:15)
[2019-09-18] MEDS ORDERED: Furosemide 40 MG/4 ML VIAL IVPUSH ONE (09:28)
[2019-09-18] MEDS: Metoprolol Tartrate 25 MG Tab PO SCH ×2 (09:48→21:11)
[2019-09-18] MEDS: Acetaminophen 325 MG Tab PO PRN (11:29)
[2019-09-18] MEDS: Simethicone 80 MG Tab.Chew PO PRN (23:19)
[2019-09-19] MEDS: Acetaminophen 325 MG Tab PO PRN (03:52)
[2019-09-19 05:55] LABS: BLOOD UREA NITROGEN,BUN 10 mg/dL (7.0-18.0); CARBON DIOXIDE,CO2 33.3 mmol/L (21.0-32.0); CHLORIDE,CL 104 mmol/L (98-107); GLUCOSE RANDOM 136 mg/dL (74-106); POTASSIUM,K 3.6 mmol/L (3.5-5.1); SODIUM,NA 141 mmol/L (136-148)
--- NOTE | 2019-09-19 08:55 | PCM.PN ---
- General Info Date of Service: 09/19/19 Subjective Update: The patient states he feels good today, wants to go back to [place]. Wants to do physical therapy. Daughter concerned about back pain but patient denies any back pain. Good appetite. - Review of Systems General: Reports: No Symptoms HEENT: Reports: No Symptoms Pulmonary: Reports: No Symptoms Cardiovascular: Reports: No Symptoms Gastrointestinal: Reports: No Symptoms Genitourinary: Reports: No Symptoms Musculoskeletal: Reports: No Symptoms Skin: Reports: No Symptoms Neurological: Reports: No Symptoms Psychiatric: Reports: No Symptoms - Patient Data Vitals - Most Recent: Last Vital Signs Temp 96.8 F L 09/19/19 08:00 Pulse 95 09/18/19 21:11 Resp 13 09/19/19 08:00 BP 155/82 H 09/19/19 08:00 Pulse Ox 95 09/19/19 08:00 Weight - Most Recent: 139.5 kg I&O - Last 24 Hours: Intake & Output 09/18/19 09/19/19 09/19/19 22:59 06:59 14:59 Intake Total 910 650 Output Total 1700 800 Balance -790 -150 Lab Results Last 24 Hours: Laboratory Results - last 24 hr 09/18/19 09/18/19 09/18/19 Range/Units 12:34 17:59 21:07 WBC (4.0-11.0) K/uL RBC (4.50-5.90) M/uL Hgb (13.0-17.0) g/dL Hct (38.0-50.0) % MCV (80.0-98.0) fL MCH (27.0-32.0) pg MCHC (31.0-37.0) g/dL RDW Std Deviation (28.0-62.0) fl RDW Coeff of Yanick (11.0-15.0) % Plt Count (150-400) K/uL MPV (7.40-12.00) fL Add Manual Diff Neutrophils % (Manual) (48.0-80.0) % Band Neutrophils % % Lymphocytes % (Manual) (16.0-40.0) % Monocytes % (Manual) (0.0-15.0) % Eosinophils % (Manual) (0.0-7.0) % Basophils % (Manual) (0.0-1.5) % Metamyelocytes % % Myelocytes % % Nucleated RBC % /100WBC Absolute Seg Neuts (1.4-5.7) Band Neutrophils # Lymphocytes # (Manual) (0.6-2.4) Monocytes # (Manual) (0.0-0.8) Eosinophils # (Manual) (0.0-0.7) Basophils # (Manual) (0.0-0.1) Absolute Metamyelocyte Absolute Myelocytes Nucleated RBCs # K/uL Sodium (136-148) mmol/L Potassium (3.5-5.1) mmol/L Chloride (98-107) mmol/L Carbon Dioxide (21.0-32.0) mmol/L BUN (7.0-18.0) mg/dL Creatinine (0.8-1.3) mg/dL Est Cr Clr Drug Dosing mL/min Estimated GFR (MDRD) ml/min Glucose (74-106) mg/dL POC Glucose 147 H 146 H 148 H (60-110) mg/dL Calcium (8.5-10.1) mg/dL 09/19/19 09/19/19 Range/Units 05:13 05:13 WBC 6.70 (4.0-11.0) K/uL RBC 3.19 L (4.50-5.90) M/uL Hgb 8.8 L (13.0-17.0) g/dL Hct 28.8 L (38.0-50.0) % MCV 90.3 (80.0-98.0) fL MCH 27.6 (27.0-32.0) pg MCHC 30.6 L (31.0-37.0) g/dL RDW Std Deviation 52.6 (28.0-62.0) fl RDW Coeff of Yanick 16 H (11.0-15.0) % Plt Count 182 (150-400) K/uL MPV 9.10 (7.40-12.00) fL Add Manual Diff YES Neutrophils % (Manual) 64 (48.0-80.0) % Band Neutrophils % 4 % Lymphocytes % (Manual) 21 (16.0-40.0) % Monocytes % (Manual) 7 (0.0-15.0) % Eosinophils % (Manual) 1 (0.0-7.0) % Basophils % (Manual) 1 (0.0-1.5) % Metamyelocytes % 0 % Myelocytes % 2 % Nucleated RBC % 0.6 /100WBC Absolute Seg Neuts 4.3 (1.4-5.7) Band Neutrophils # 0.3 Lymphocytes # (Manual) 1.4 (0.6-2.4) Monocytes # (Manual) 0.5 (0.0-0.8) Eosinophils # (Manual) 0.1 (0.0-0.7) Basophils # (Manual) 0.1 (0.0-0.1) Absolute Metamyelocyte 0 Absolute Myelocytes 0.1 Nucleated RBCs # 0 K/uL Sodium 141 (136-148) mmol/L Potassium 3.6 (3.5-5.1) mmol/L Chloride 104 (98-107) mmol/L Carbon Dioxide 33.3 H (21.0-32.0) mmol/L BUN 10 (7.0-18.0) mg/dL Creatinine 1.0 (0.8-1.3) mg/dL Est Cr Clr Drug Dosing 66.22 mL/min Estimated GFR (MDRD) > 60.0 ml/min Glucose 136 H (74-106) mg/dL POC Glucose (60-110) mg/dL Calcium 8.4 L (8.5-10.1) mg/dL Felipe Results Last 24 Hours: Microbiology 09/13/19 22:19 Aerobic Blood Culture - Final Blood - Venous - Lab Draw Escherichia Coli Anaerobic Blood Culture - Final NO GROWTH AFTER 5 DAYS 09/13/19 22:10 Aerobic Blood Culture - Final Blood - Venous Escherichia Coli Anaerobic Blood Culture - Final NO GROWTH AFTER 5 DAYS 09/16/19 10:15 Aerobic Blood Culture - Preliminary Blood NO GROWTH AFTER 2 DAYS Anaerobic Blood Culture - Final Escherichia Coli 09/16/19 09:30 Aerobic Blood Culture - Preliminary Blood NO GROWTH AFTER 2 DAYS Anaerobic Blood Culture - Preliminary NO GROWTH AFTER 2 DAYS Med Orders - Current: Current Medications Acetaminophen (Tylenol) 650 mg PO Q4H PRN PRN Reason: Pain/Fever Last Admin: 09/19/19 03:52 Dose: 650 mg Apixaban (Eliquis) 2.5 mg PO BID [facility] Last Admin: 09/18/19 21:12 Dose: 2.5 mg Pantoprazole Sodium 40 mg/ (Sodium Chloride) 10 mls @ 300 mls/hr IV DAILY [facility] Last Admin: 09/18/19 09:14 Dose: 300 mls/hr Ceftriaxone Sodium/Dextrose 2 (gm/ Premix) 50 mls @ 100 mls/hr IV Q24H [facility] Insulin Aspart (Novolog) 0 unit SUBCUT WITHMEALSANDBED [facility]; Protocol Last Admin: 09/18/19 21:10 Dose: Not Given Melatonin (Melatonin) 3 mg PO BEDTIME PRN PRN Reason: Insomnia Last Admin: 09/18/19 23:19 Dose: 3 mg Metoprolol Tartrate (Lopressor) 25 mg PO Q12H [facility] Last Admin: 09/18/19 21:11 Dose: 25 mg Ondansetron HCl (Zofran) 4 mg IVPUSH Q4H PRN PRN Reason: Nausea/Vomiting Simethicone (Simethicone) 80 mg PO TIDAC PRN PRN Reason: Gas Last Admin: 09/18/19 23:19 Dose: 80 mg Discontinued Medications Acetaminophen (Tylenol) 650 mg PO NOW ONE Stop: 09/13/19 10:52 Last Admin: 09/13/19 10:54 Dose: 650 mg Digoxin (Lanoxin) 500 mcg IVPUSH ONETIME ONE Stop: 09/13/19 21:16 Last Admin: 09/13/19 21:31 Dose: 500 mcg Digoxin (Lanoxin) 250 mcg IVPUSH Q4H [facility] Stop: 09/14/19 05:01 Last Admin: 09/14/19 05:43 Dose: Not Given Diltiazem HCl (Diltiazem) 20 mg IVPUSH ONETIME ONE Stop: 09/13/19 21:49 Last Admin: 09/13/19 23:38 Dose: 20 mg Furosemide (Lasix) 20 mg IVPUSH NOW ONE Stop: 09/17/19 12:36 Last Admin: 09/17/19 13:22 Dose: 20 mg Furosemide (Lasix) 40 mg IVPUSH NOW ONE Stop: 09/18/19 09:29 Last Admin: 09/18/19 09:50 Dose: 40 mg Cefepime HCl 1 gm/ Premix 50 mls @ 100 mls/hr IV ONETIME ONE Stop: 09/13/19 10:52 Last Admin: 09/13/19 10:58 Dose: 100 mls/hr Sodium Chloride (Normal Saline) 500 mls @ 1,000 mls/hr IV .BOLUS [facility] Last Admin: 09/13/19 10:27 Dose: 1,000 mls/hr Sodium Chloride (Normal Saline) 500 mls @ 999 mls/hr IV .BOLUS [facility] Norepinephrine Bitartrate (Norepinephr-0.9% Nacl 4 Mg/250) 4 mg in 250 mls @ 7.5 mls/hr IV TITRATE [facility]; Protocol Last Titration: 09/13/19 20:40 Dose: 0 mcg/min, 0 mls/hr Dopamine HCl/Dextrose (Dopamine In D5w 400 Mg/250 Ml) 400 mg in 250 mls @ 10.485 mls/hr IV ASDIRECTED [facility]; Protocol Last Titration: 09/15/19 05:47 Dose: 0 mcg/kg/min, 0 mls/hr Sodium Chloride (Normal Saline) 1,000 mls @ 999 mls/hr IV ONETIME ONE Stop: 09/13/19 16:53 Last Admin: 09/13/19 16:05 Dose: 999 mls/hr Piperacillin Sod/Tazobactam (Sod 4.5 gm/ Sodium Chloride) 100 mls @ 100 mls/hr IV Q8H [facility] Last Admin: 09/17/19 08:17 Dose: 100 mls/hr Vancomycin HCl 2 gm/ Sodium (Chloride) 500 mls @ 250 mls/hr IV Q24H [facility] Last Admin: 09/14/19 17:49 Dose: 250 mls/hr Phenylephrine HCl 10 mg/ (Sodium Chloride) 100 mls @ 24 mls/hr IV TITRATE [facility]; Protocol Last Titration: 09/14/19 03:05 Dose: 60 mcg/min, 36 mls/hr Phenylephrine HCl 50 mg/ (Sodium Chloride) 500 mls @ 24 mls/hr IV TITRATE [facility]; Protocol Last Titration: 09/15/19 09:30 Dose: 0 mcg/min, 0 mls/hr Ceftriaxone Sodium/Dextrose 1 (gm/ Premix) 50 mls @ 100 mls/hr IV Q24H [facility] Last Admin: 09/18/19 09:15 Dose: 100 mls/hr Insulin Aspart (Novolog) 0 unit SUBCUT Q6H [facility]; Protocol Last Admin: 09/15/19 17:22 Dose: Not Given Phenylephrine HCl (Tai-Synephrine) Confirm Administered Dose 10 mg .ROUTE .STK- MED ONE Stop: 09/13/19 20:19 Last Admin: 09/13/19 20:42 Dose: Not Given Phenylephrine HCl (Tai-Synephrine) Confirm Administered Dose 10 mg .ROUTE .STK- MED ONE Stop: 09/13/19 20:29 Last Admin: 09/13/19 20:42 Dose: Not Given Phenylephrine HCl (Tai-Synephrine) Confirm Administered Dose 10 mg .ROUTE .STK- MED ONE Stop: 09/13/19 22:39 Last Admin: 09/13/19 23:03 Dose: Not Given Phenylephrine HCl (Tai-Synephrine) Confirm Administered Dose 10 mg .ROUTE .STK- MED ONE Stop: 09/14/19 00:54 Last Admin: 09/14/19 01:13 Dose: Not Given Potassium Chloride (Klor-Con M20) 40 meq PO ONETIME ONE Stop: 09/16/19 08:26 Last Admin: 09/16/19 08:47 Dose: 40 meq Vancomycin HCl (Pharmacy To Dose - Vancomycin) 1 dose .XX ASDIRECTED [facility] - Exam General: Alert, Oriented Lungs: Normal Respiratory Effort, Crackles Cardiovascular: Irregular Rhythm GI/Abdominal Exam: Normal Bowel Sounds, Soft, Non-Tender Extremities: No Pedal Edema Skin: Warm, Dry, Intact Neurological: No New Focal Deficit Psy/Mental Status: Alert, Normal Affect, Normal Mood Sepsis Event Note - Evaluation Sepsis Screening Result: No Definite Risk - Focused Exam Vital Signs: Vital Signs Temp Pulse Resp BP BP Pulse Ox 09/19/19 08:00 96.8 F L 13 155/82 H 95 09/19/19 07:00 15 149/79 H 96 09/19/19 06:00 16 153/95 H 95 09/19/19 05:00 20 151/85 H 94 L 09/19/19 04:00 98.2 F 15 157/92 H 93 L 09/19/19 03:00 13 144/82 H 94 L 09/19/19 02:00 16 152/88 H 95 09/19/19 01:00 17 160/91 H 94 L 09/19/19 00:00 98.5 F 17 152/99 H 95 09/18/19 23:00 15 154/73 H 95 09/18/19 22:00 17 155/99 H 95 09/18/19 21:11 95 147/74 H 09/18/19 21:00 17 147/74 H 94 L Date Exam was Performed: 09/19/19 Time Exam was Performed: 10:41 - Problem List Review Problem List Initiated/Reviewed/Updated: Yes - Plan Plan:: 1. Septic shock secondary to Ecoli bacteremia and UTI-sepsis resolved-Continue Rocephin. All repeat cultures growing Ecoli. 2. Acute hypoxic respiratory failure secondary to CHF- on supplemental oxygen, bilateral pleural effusions seen on CT. Unable to completed echo. Will give dose of Lasix today. Strict I/Os. May need additional dose later this evening , will reassess fluid status in PM. 3. DMII- accuchecks and sliding scale. HA1c 7.3 4. Difficulty swallowing- will eventually need barium swallow study which is not available at this facility. Family and patient want him to eat, knowing the risk of aspiration. 5. Chronic conditions- CHF, CAD, Afib, HTN- BP stable but HR increasing, will restart metoprolol but at lower dose, 25 BID. Continue Eliquis. PT consulted ordered. Will be transferred to medical surgical floor.
[2019-09-19] MEDS: Metoprolol Tartrate 25 MG Tab PO SCH ×2 (09:12→20:47)
[2019-09-19] MEDS: Apixaban 2.5 MG Tab PO SCH ×2 (09:12→20:47)
[2019-09-19] MEDS: cefTRIAXone 2 GM in Premix Bag 1 BAG IV SCH (09:14)
[2019-09-19] MEDS: Pantoprazole 40 MG in Sodium Chloride 0.9% 10 ML IV SCH (09:18)
[2019-09-19] MEDS: Insulin Aspart 100 Units/ML 3 ML Pen SUBCUT SCH ×4 (09:24→20:46)
[2019-09-19] MEDS ORDERED: Furosemide 40 MG/4 ML VIAL IVPUSH ONE (09:59)
[2019-09-19] MEDS: Docusate Sodium 100 MG Cap PO PRN ×2 (11:04→23:11)
[2019-09-20 06:25] LABS: BLOOD UREA NITROGEN,BUN 10 mg/dL (7.0-18.0); CARBON DIOXIDE,CO2 32.3 mmol/L (21.0-32.0); CHLORIDE,CL 103 mmol/L (98-107); GLUCOSE RANDOM 120 mg/dL (74-106); POTASSIUM,K 3.3 mmol/L (3.5-5.1); SODIUM,NA 142 mmol/L (136-148)
[2019-09-20] MEDS ORDERED: Potassium Chloride 20 MEQ Tab.ER PO ONE (07:14)
[2019-09-20] MEDS: Apixaban 2.5 MG Tab PO SCH ×2 (08:09→21:14)
[2019-09-20] MEDS: Pantoprazole 40 MG in Sodium Chloride 0.9% 10 ML IV SCH (08:10)
--- NOTE | 2019-09-20 08:14 | PCM.PN ---
- General Info Date of Service: 09/20/19 Subjective Update: Patient reports he is back to normal, wants to go back to [place]. Feels good, states he uses 2 L of oxygen at [place] and is only using 1 L here. Denies chest pain or shortness of breath. - Review of Systems General: Reports: No Symptoms HEENT: Reports: No Symptoms Pulmonary: Reports: No Symptoms Cardiovascular: Reports: Edema. Denies: Chest Pain Gastrointestinal: Reports: No Symptoms Genitourinary: Reports: No Symptoms Musculoskeletal: Reports: No Symptoms Skin: Reports: No Symptoms Neurological: Reports: No Symptoms Psychiatric: Reports: No Symptoms - Patient Data Vitals - Most Recent: Last Vital Signs Temp 98.2 F 09/20/19 03:00 Pulse 82 09/20/19 03:00 Resp 20 09/20/19 03:00 BP 159/75 H 09/20/19 03:00 Pulse Ox 93 L 09/20/19 03:00 Weight - Most Recent: 139.5 kg I&O - Last 24 Hours: Intake & Output 09/19/19 09/20/19 09/20/19 22:59 06:59 14:59 Intake Total 200 350 Output Total 2020 450 Balance -1820 -100 Lab Results Last 24 Hours: Laboratory Results - last 24 hr 09/19/19 09/19/19 09/19/19 Range/Units 06:30 09:24 12:35 WBC (4.0-11.0) K/uL RBC (4.50-5.90) M/uL Hgb (13.0-17.0) g/dL Hct (38.0-50.0) % MCV (80.0-98.0) fL MCH (27.0-32.0) pg MCHC (31.0-37.0) g/dL RDW Std Deviation (28.0-62.0) fl RDW Coeff of [place] (11.0-15.0) % Plt Count (150-400) K/uL MPV (7.40-12.00) fL Add Manual Diff Neutrophils % (Manual) (48.0-80.0) % Lymphocytes % (Manual) (16.0-40.0) % Monocytes % (Manual) (0.0-15.0) % Eosinophils % (Manual) (0.0-7.0) % Nucleated RBC % /100WBC Absolute Seg Neuts (1.4-5.7) Lymphocytes # (Manual) (0.6-2.4) Monocytes # (Manual) (0.0-0.8) Eosinophils # (Manual) (0.0-0.7) Nucleated RBCs # K/uL Sodium (136-148) mmol/L Potassium (3.5-5.1) mmol/L Chloride (98-107) mmol/L Carbon Dioxide (21.0-32.0) mmol/L BUN (7.0-18.0) mg/dL Creatinine (0.8-1.3) mg/dL Est Cr Clr Drug Dosing mL/min Estimated GFR (MDRD) ml/min Glucose (74-106) mg/dL POC Glucose 129 H 131 H 167 H (60-110) mg/dL Calcium (8.5-10.1) mg/dL 09/19/19 09/19/19 09/20/19 Range/Units 17:07 20:45 06:01 WBC 7.03 (4.0-11.0) K/uL RBC 3.21 L (4.50-5.90) M/uL Hgb 8.9 L (13.0-17.0) g/dL Hct 29.0 L (38.0-50.0) % MCV 90.3 (80.0-98.0) fL MCH 27.7 (27.0-32.0) pg MCHC 30.7 L (31.0-37.0) g/dL RDW Std Deviation 53.2 (28.0-62.0) fl RDW Coeff of [place]ick 17 H (11.0-15.0) % Plt Count 191 (150-400) K/uL MPV 8.90 (7.40-12.00) fL Add Manual Diff YES Neutrophils % (Manual) 65 (48.0-80.0) % Lymphocytes % (Manual) 23 (16.0-40.0) % Monocytes % (Manual) 9 (0.0-15.0) % Eosinophils % (Manual) 3 (0.0-7.0) % Nucleated RBC % 0.6 /100WBC Absolute Seg Neuts 4.6 (1.4-5.7) Lymphocytes # (Manual) 1.6 (0.6-2.4) Monocytes # (Manual) 0.6 (0.0-0.8) Eosinophils # (Manual) 0.2 (0.0-0.7) Nucleated RBCs # 0 K/uL Sodium (136-148) mmol/L Potassium (3.5-5.1) mmol/L Chloride (98-107) mmol/L Carbon Dioxide (21.0-32.0) mmol/L BUN (7.0-18.0) mg/dL Creatinine (0.8-1.3) mg/dL Est Cr Clr Drug Dosing mL/min Estimated GFR (MDRD) ml/min Glucose (74-106) mg/dL POC Glucose 127 H 134 H (60-110) mg/dL Calcium (8.5-10.1) mg/dL 09/20/19 Range/Units 06:01 WBC (4.0-11.0) K/uL RBC (4.50-5.90) M/uL Hgb (13.0-17.0) g/dL Hct (38.0-50.0) % MCV (80.0-98.0) fL MCH (27.0-32.0) pg MCHC (31.0-37.0) g/dL RDW Std Deviation (28.0-62.0) fl RDW Coeff of [place]ick (11.0-15.0) % Plt Count (150-400) K/uL MPV (7.40-12.00) fL Add Manual Diff Neutrophils % (Manual) (48.0-80.0) % Lymphocytes % (Manual) (16.0-40.0) % Monocytes % (Manual) (0.0-15.0) % Eosinophils % (Manual) (0.0-7.0) % Nucleated RBC % /100WBC Absolute Seg Neuts (1.4-5.7) Lymphocytes # (Manual) (0.6-2.4) Monocytes # (Manual) (0.0-0.8) Eosinophils # (Manual) (0.0-0.7) Nucleated RBCs # K/uL Sodium 142 (136-148) mmol/L Potassium 3.3 L (3.5-5.1) mmol/L Chloride 103 (98-107) mmol/L Carbon Dioxide 32.3 H (21.0-32.0) mmol/L BUN 10 (7.0-18.0) mg/dL Creatinine 1.0 (0.8-1.3) mg/dL Est Cr Clr Drug Dosing 66.22 mL/min Estimated GFR (MDRD) > 60.0 ml/min Glucose 120 H (74-106) mg/dL POC Glucose (60-110) mg/dL Calcium 8.1 L (8.5-10.1) mg/dL Felipe Results Last 24 Hours: Microbiology 09/16/19 10:15 Aerobic Blood Culture - Preliminary Blood NO GROWTH AFTER 3 DAYS Anaerobic Blood Culture - Final Escherichia Coli 09/16/19 09:30 Aerobic Blood Culture - Preliminary Blood NO GROWTH AFTER 3 DAYS Anaerobic Blood Culture - Preliminary NO GROWTH AFTER 3 DAYS Med Orders - Current: Current Medications Acetaminophen (Tylenol) 650 mg PO Q4H PRN PRN Reason: Pain/Fever Last Admin: 09/19/19 03:52 Dose: 650 mg Apixaban (Eliquis) 2.5 mg PO BID [facility] Last Admin: 09/20/19 08:09 Dose: 2.5 mg Docusate Sodium (Colace) 100 mg PO BID PRN PRN Reason: Constipation Last Admin: 09/19/19 23:11 Dose: 100 mg Pantoprazole Sodium 40 mg/ (Sodium Chloride) 10 mls @ 300 mls/hr IV DAILY [facility] Last Admin: 09/20/19 08:10 Dose: 300 mls/hr Ceftriaxone Sodium/Dextrose 2 (gm/ Premix) 50 mls @ 100 mls/hr IV Q24H [facility] Last Admin: 09/19/19 09:14 Dose: 100 mls/hr Insulin Aspart (Novolog) 0 unit SUBCUT WITHMEALSANDBED [facility]; Protocol Last Admin: 09/19/19 20:46 Dose: Not Given Melatonin (Melatonin) 3 mg PO BEDTIME PRN PRN Reason: Insomnia Last Admin: 09/18/19 23:19 Dose: 3 mg Metoprolol Tartrate (Lopressor) 25 mg PO Q12H [facility] Last Admin: 09/19/19 20:47 Dose: 25 mg Ondansetron HCl (Zofran) 4 mg IVPUSH Q4H PRN PRN Reason: Nausea/Vomiting Simethicone (Simethicone) 80 mg PO TIDAC PRN PRN Reason: Gas Last Admin: 09/18/19 23:19 Dose: 80 mg Discontinued Medications Acetaminophen (Tylenol) 650 mg PO NOW ONE Stop: 09/13/19 10:52 Last Admin: 09/13/19 10:54 Dose: 650 mg Digoxin (Lanoxin) 500 mcg IVPUSH ONETIME ONE Stop: 09/13/19 21:16 Last Admin: 09/13/19 21:31 Dose: 500 mcg Digoxin (Lanoxin) 250 mcg IVPUSH Q4H [facility] Stop: 09/14/19 05:01 Last Admin: 09/14/19 05:43 Dose: Not Given Diltiazem HCl (Diltiazem) 20 mg IVPUSH ONETIME ONE Stop: 09/13/19 21:49 Last Admin: 09/13/19 23:38 Dose: 20 mg Furosemide (Lasix) 20 mg IVPUSH NOW ONE Stop: 09/17/19 12:36 Last Admin: 09/17/19 13:22 Dose: 20 mg Furosemide (Lasix) 40 mg IVPUSH NOW ONE Stop: 09/18/19 09:29 Last Admin: 09/18/19 09:50 Dose: 40 mg Furosemide (Lasix) 40 mg IVPUSH NOW ONE Stop: 09/19/19 10:00 Last Admin: 09/19/19 10:20 Dose: 40 mg Cefepime HCl 1 gm/ Premix 50 mls @ 100 mls/hr IV ONETIME ONE Stop: 09/13/19 10:52 Last Admin: 09/13/19 10:58 Dose: 100 mls/hr Sodium Chloride (Normal Saline) 500 mls @ 1,000 mls/hr IV .BOLUS [facility] Last Admin: 09/13/19 10:27 Dose: 1,000 mls/hr Sodium Chloride (Normal Saline) 500 mls @ 999 mls/hr IV .BOLUS [facility] Norepinephrine Bitartrate (Norepinephr-0.9% Nacl 4 Mg/250) 4 mg in 250 mls @ 7.5 mls/hr IV TITRATE [facility]; Protocol Last Titration: 09/13/19 20:40 Dose: 0 mcg/min, 0 mls/hr Dopamine HCl/Dextrose (Dopamine In D5w 400 Mg/250 Ml) 400 mg in 250 mls @ 10.485 mls/hr IV ASDIRECTED [facility]; Protocol Last Titration: 09/15/19 05:47 Dose: 0 mcg/kg/min, 0 mls/hr Sodium Chloride (Normal Saline) 1,000 mls @ 999 mls/hr IV ONETIME ONE Stop: 09/13/19 16:53 Last Admin: 09/13/19 16:05 Dose: 999 mls/hr Piperacillin Sod/Tazobactam (Sod 4.5 gm/ Sodium Chloride) 100 mls @ 100 mls/hr IV Q8H [facility] Last Admin: 09/17/19 08:17 Dose: 100 mls/hr Vancomycin HCl 2 gm/ Sodium (Chloride) 500 mls @ 250 mls/hr IV Q24H [facility] Last Admin: 09/14/19 17:49 Dose: 250 mls/hr Phenylephrine HCl 10 mg/ (Sodium Chloride) 100 mls @ 24 mls/hr IV TITRATE [facility]; Protocol Last Titration: 09/14/19 03:05 Dose: 60 mcg/min, 36 mls/hr Phenylephrine HCl 50 mg/ (Sodium Chloride) 500 mls @ 24 mls/hr IV TITRATE [facility]; Protocol Last Titration: 09/15/19 09:30 Dose: 0 mcg/min, 0 mls/hr Ceftriaxone Sodium/Dextrose 1 (gm/ Premix) 50 mls @ 100 mls/hr IV Q24H [facility] Last Admin: 09/18/19 09:15 Dose: 100 mls/hr Insulin Aspart (Novolog) 0 unit SUBCUT Q6H [facility]; Protocol Last Admin: 09/15/19 17:22 Dose: Not Given Phenylephrine HCl (Tai-Synephrine) Confirm Administered Dose 10 mg .ROUTE .ST- MED ONE Stop: 09/13/19 20:19 Last Admin: 09/13/19 20:42 Dose: Not Given Phenylephrine HCl (Tai-Synephrine) Confirm Administered Dose 10 mg .ROUTE .STK- MED ONE Stop: 09/13/19 20:29 Last Admin: 09/13/19 20:42 Dose: Not Given Phenylephrine HCl (Tai-Synephrine) Confirm Administered Dose 10 mg .ROUTE .STK- MED ONE Stop: 09/13/19 22:39 Last Admin: 09/13/19 23:03 Dose: Not Given Phenylephrine HCl (Tai-Synephrine) Confirm Administered Dose 10 mg .ROUTE .ST- MED ONE Stop: 09/14/19 00:54 Last Admin: 09/14/19 01:13 Dose: Not Given Potassium Chloride (Klor-Con M20) 40 meq PO ONETIME ONE Stop: 09/16/19 08:26 Last Admin: 09/16/19 08:47 Dose: 40 meq Potassium Chloride (Klor-Con M20) 40 meq PO ONETIME ONE Stop: 09/20/19 07:15 Last Admin: 09/20/19 08:09 Dose: 40 meq Vancomycin HCl (Pharmacy To Dose - Vancomycin) 1 dose .XX ASDIRECTED [facility] - Exam General: Alert, Oriented, Cooperative Lungs: Clear to Auscultation, Normal Respiratory Effort Cardiovascular: Irregular Rhythm GI/Abdominal Exam: Normal Bowel Sounds, Soft, Non-Tender, No Distention Extremities: Pedal Edema Skin: Warm, Dry Neurological: No New Focal Deficit Psy/Mental Status: Alert, Normal Affect, Normal Mood Sepsis Event Note - Evaluation Sepsis Screening Result: No Definite Risk - Focused Exam Vital Signs: Vital Signs Temp Pulse Pulse Resp BP BP Pulse Ox 09/20/19 03:00 98.2 F 82 20 159/75 H 93 L 09/19/19 23:45 97.5 F 80 19 131/64 91 L 09/19/19 20:50 98.1 F 82 16 122/59 L 92 L 09/19/19 20:47 82 122/59 L Date Exam was Performed: 09/20/19 Time Exam was Performed: 13:41 - Problem List Review Problem List Initiated/Reviewed/Updated: Yes - My Orders Last 24 Hours: My Active Orders 09/19/19 08:55 Docusate Sodium [Colace] 100 mg PO BID PRN 09/19/19 12:00 Vital Signs [RC] Q4H 09/21/19 05:11 BASIC METABOLIC PANEL,BMP [CHEM] AM CBC WITH AUTO DIFF [HEME] AM 09/22/19 05:11 BASIC METABOLIC PANEL,BMP [CHEM] AM CBC WITH AUTO DIFF [HEME] AM - Plan Plan:: 1. Septic shock secondary to Ecoli bacteremia and UTI-sepsis resolved-Continue Rocephin. All repeat cultures growing Ecoli. Repeat blood cultures and urine culture today. 2. Acute hypoxic respiratory failure secondary to CHF- resolved- back to baseline oxygen requirement.Resume home lasix dose. Unable to completed echo. 3. DMII- accuchecks and sliding scale. HA1c 7.3 4. Difficulty swallowing- will eventually need barium swallow study which is not available at this facility. Family and patient want him to eat, knowing the risk of aspiration. 5. Chronic conditions- CHF, CAD, Afib, HTN- BP stable but HR increasing, will restart metoprolol but at lower dose, 25 BID. Continue Eliquis. PT consulted ordered.
[2019-09-20] MEDS: cefTRIAXone 2 GM in Premix Bag 1 BAG IV SCH (08:23)
[2019-09-20] MEDS: Metoprolol Tartrate 25 MG Tab PO SCH ×2 (09:07→21:14)
[2019-09-20] MEDS: Insulin Aspart 100 Units/ML 3 ML Pen SUBCUT SCH ×4 (09:10→21:17)
[2019-09-20] MEDS: Furosemide 40 MG Tab PO SCH ×2 (10:35→14:06)
[2019-09-20] MEDS: Acetaminophen 325 MG Tab PO PRN (22:31)
[2019-09-20] MEDS: Melatonin 3 MG Tab PO PRN (22:32)
[2019-09-21 06:35] LABS: BLOOD UREA NITROGEN,BUN 10 mg/dL (7.0-18.0); CARBON DIOXIDE,CO2 33.6 mmol/L (21.0-32.0); CHLORIDE,CL 101 mmol/L (98-107); GLUCOSE RANDOM 116 mg/dL (74-106); POTASSIUM,K 3.2 mmol/L (3.5-5.1); SODIUM,NA 140 mmol/L (136-148)
[2019-09-21] MEDS: Insulin Aspart 100 Units/ML 3 ML Pen SUBCUT SCH ×4 (07:17→22:19)
[2019-09-21] MEDS: Furosemide 40 MG Tab PO SCH ×2 (08:30→13:38)
[2019-09-21] MEDS: Apixaban 2.5 MG Tab PO SCH ×2 (08:30→20:48)
[2019-09-21] MEDS: Metoprolol Tartrate 25 MG Tab PO SCH ×2 (08:30→20:46)
[2019-09-21] MEDS: Pantoprazole 40 MG in Sodium Chloride 0.9% 10 ML IV SCH (08:31)
--- NOTE | 2019-09-21 08:38 | PCM.PN ---
- General Info Date of Service: 09/21/19 Subjective Update: The patient states he feels better and wants to go back to [place] because they have better beds and better food. Is at baseline oxygen requirement. - Review of Systems General: Reports: No Symptoms HEENT: Reports: No Symptoms Pulmonary: Reports: No Symptoms Cardiovascular: Reports: Edema. Denies: Chest Pain Gastrointestinal: Reports: No Symptoms Genitourinary: Reports: No Symptoms Musculoskeletal: Reports: No Symptoms Skin: Reports: No Symptoms Neurological: Reports: No Symptoms Psychiatric: Reports: No Symptoms - Patient Data Vitals - Most Recent: Last Vital Signs Temp 97.6 F 09/21/19 08:00 Pulse 65 09/21/19 08:30 Resp 18 09/21/19 08:00 BP 139/71 09/21/19 08:30 Pulse Ox 91 L 09/21/19 08:00 Weight - Most Recent: 135 kg I&O - Last 24 Hours: Intake & Output 09/20/19 09/21/19 09/21/19 22:59 06:59 14:59 Intake Total 1080 250 Output Total 1450 1450 Balance -370 -1200 Lab Results Last 24 Hours: Laboratory Results - last 24 hr 09/20/19 09/20/19 09/20/19 Range/Units 09:06 11:05 11:32 WBC (4.0-11.0) K/uL RBC (4.50-5.90) M/uL Hgb (13.0-17.0) g/dL Hct (38.0-50.0) % MCV (80.0-98.0) fL MCH (27.0-32.0) pg MCHC (31.0-37.0) g/dL RDW Std Deviation (28.0-62.0) fl RDW Coeff of Yanick (11.0-15.0) % Plt Count (150-400) K/uL MPV (7.40-12.00) fL Add Manual Diff Neutrophils % (Manual) (48.0-80.0) % Band Neutrophils % % Lymphocytes % (Manual) (16.0-40.0) % Monocytes % (Manual) (0.0-15.0) % Eosinophils % (Manual) (0.0-7.0) % Basophils % (Manual) (0.0-1.5) % Nucleated RBC % /100WBC Absolute Seg Neuts (1.4-5.7) Band Neutrophils # Lymphocytes # (Manual) (0.6-2.4) Monocytes # (Manual) (0.0-0.8) Eosinophils # (Manual) (0.0-0.7) Basophils # (Manual) (0.0-0.1) Nucleated RBCs # K/uL Sodium (136-148) mmol/L Potassium (3.5-5.1) mmol/L Chloride (98-107) mmol/L Carbon Dioxide (21.0-32.0) mmol/L BUN (7.0-18.0) mg/dL Creatinine (0.8-1.3) mg/dL Est Cr Clr Drug Dosing mL/min Estimated GFR (MDRD) ml/min Glucose (74-106) mg/dL POC Glucose 198 H 130 H (60-110) mg/dL Calcium (8.5-10.1) mg/dL Urine Color DARK YELLOW Urine Appearance CLEAR Urine pH 7.5 (5.0-8.0) Ur Specific [place] 1.020 (1.001-1.035) Urine Protein 100 H (NEGATIVE) mg/dL Urine Glucose (UA) NEGATIVE (NEGATIVE) mg/dL Urine Ketones NEGATIVE (NEGATIVE) mg/dL Urine Occult Blood SMALL H (NEGATIVE) Urine Nitrite NEGATIVE (NEGATIVE) Urine Bilirubin NEGATIVE (NEGATIVE) Urine Urobilinogen 4.0 H (<2.0) EU/dL Ur Leukocyte Esterase NEGATIVE (NEGATIVE) Urine RBC 2-5 (0-2/HPF) Urine WBC 1-4 (0-5/HPF) Ur Epithelial Cells RARE (NONE-FEW) Urine Bacteria RARE (NEGATIVE) 09/20/19 09/20/19 09/21/19 Range/Units 17:30 21:13 06:07 WBC 6.55 (4.0-11.0) K/uL RBC 3.41 L (4.50-5.90) M/uL Hgb 9.4 L (13.0-17.0) g/dL Hct 30.6 L (38.0-50.0) % MCV 89.7 (80.0-98.0) fL MCH 27.6 (27.0-32.0) pg MCHC 30.7 L (31.0-37.0) g/dL RDW Std Deviation 53.5 (28.0-62.0) fl RDW Coeff of Yanick 17 H (11.0-15.0) % Plt Count 211 (150-400) K/uL MPV 8.60 (7.40-12.00) fL Add Manual Diff YES Neutrophils % (Manual) 72 (48.0-80.0) % Band Neutrophils % 2 % Lymphocytes % (Manual) 18 (16.0-40.0) % Monocytes % (Manual) 5 (0.0-15.0) % Eosinophils % (Manual) 2 (0.0-7.0) % Basophils % (Manual) 1 (0.0-1.5) % Nucleated RBC % 0.0 /100WBC Absolute Seg Neuts 4.7 (1.4-5.7) Band Neutrophils # 0.1 Lymphocytes # (Manual) 1.2 (0.6-2.4) Monocytes # (Manual) 0.3 (0.0-0.8) Eosinophils # (Manual) 0.1 (0.0-0.7) Basophils # (Manual) 0.1 (0.0-0.1) Nucleated RBCs # 0 K/uL Sodium (136-148) mmol/L Potassium (3.5-5.1) mmol/L Chloride (98-107) mmol/L Carbon Dioxide (21.0-32.0) mmol/L BUN (7.0-18.0) mg/dL Creatinine (0.8-1.3) mg/dL Est Cr Clr Drug Dosing mL/min Estimated GFR (MDRD) ml/min Glucose (74-106) mg/dL POC Glucose 118 H 114 H (60-110) mg/dL Calcium (8.5-10.1) mg/dL Urine Color Urine Appearance Urine pH (5.0-8.0) Ur Specific [place] (1.001-1.035) Urine Protein (NEGATIVE) mg/dL Urine Glucose (UA) (NEGATIVE) mg/dL Urine Ketones (NEGATIVE) mg/dL Urine Occult Blood (NEGATIVE) Urine Nitrite (NEGATIVE) Urine Bilirubin (NEGATIVE) Urine Urobilinogen (<2.0) EU/dL Ur Leukocyte Esterase (NEGATIVE) Urine RBC (0-2/HPF) Urine WBC (0-5/HPF) Ur Epithelial Cells (NONE-FEW) Urine Bacteria (NEGATIVE) 05/28/20 05/28/20 Range/Units 06:07 06:22 WBC (4.0-11.0) K/uL RBC (4.50-5.90) M/uL Hgb (13.0-17.0) g/dL Hct (38.0-50.0) % MCV (80.0-98.0) fL MCH (27.0-32.0) pg MCHC (31.0-37.0) g/dL RDW Std Deviation (28.0-62.0) fl RDW Coeff of Yanick (11.0-15.0) % Plt Count (150-400) K/uL MPV (7.40-12.00) fL Add Manual Diff Neutrophils % (Manual) (48.0-80.0) % Band Neutrophils % % Lymphocytes % (Manual) (16.0-40.0) % Monocytes % (Manual) (0.0-15.0) % Eosinophils % (Manual) (0.0-7.0) % Basophils % (Manual) (0.0-1.5) % Nucleated RBC % /100WBC Absolute Seg Neuts (1.4-5.7) Band Neutrophils # Lymphocytes # (Manual) (0.6-2.4) Monocytes # (Manual) (0.0-0.8) Eosinophils # (Manual) (0.0-0.7) Basophils # (Manual) (0.0-0.1) Nucleated RBCs # K/uL Sodium 140 (136-148) mmol/L Potassium 3.2 L (3.5-5.1) mmol/L Chloride 101 (98-107) mmol/L Carbon Dioxide 33.6 H (21.0-32.0) mmol/L BUN 10 (7.0-18.0) mg/dL Creatinine 1.1 (0.8-1.3) mg/dL Est Cr Clr Drug Dosing 60.20 mL/min Estimated GFR (MDRD) > 60.0 ml/min Glucose 116 H (74-106) mg/dL POC Glucose 107 (60-110) mg/dL Calcium 8.5 (8.5-10.1) mg/dL Urine Color Urine Appearance Urine pH (5.0-8.0) Ur Specific [place] (1.001-1.035) Urine Protein (NEGATIVE) mg/dL Urine Glucose (UA) (NEGATIVE) mg/dL Urine Ketones (NEGATIVE) mg/dL Urine Occult Blood (NEGATIVE) Urine Nitrite (NEGATIVE) Urine Bilirubin (NEGATIVE) Urine Urobilinogen (<2.0) EU/dL Ur Leukocyte Esterase (NEGATIVE) Urine RBC (0-2/HPF) Urine WBC (0-5/HPF) Ur Epithelial Cells (NONE-FEW) Urine Bacteria (NEGATIVE) Felipe Results Last 24 Hours: Microbiology 09/16/19 10:15 Aerobic Blood Culture - Preliminary Blood NO GROWTH AFTER 4 DAYS Anaerobic Blood Culture - Final Escherichia Coli 09/16/19 09:30 Aerobic Blood Culture - Preliminary Blood NO GROWTH AFTER 4 DAYS Anaerobic Blood Culture - Preliminary NO GROWTH AFTER 4 DAYS Med Orders - Current: Current Medications Acetaminophen (Tylenol) 650 mg PO Q4H PRN PRN Reason: Pain/Fever Last Admin: 09/20/19 22:31 Dose: 650 mg Apixaban (Eliquis) 2.5 mg PO BID [facility] Last Admin: 09/21/19 08:30 Dose: 2.5 mg Docusate Sodium (Colace) 100 mg PO BID PRN PRN Reason: Constipation Last Admin: 09/19/19 23:11 Dose: 100 mg Furosemide (Lasix) 40 mg PO BIDDIURETIC [facility] Last Admin: 09/21/19 08:30 Dose: 40 mg Pantoprazole Sodium 40 mg/ (Sodium Chloride) 10 mls @ 300 mls/hr IV DAILY [facility] Last Admin: 09/21/19 08:31 Dose: 300 mls/hr Ceftriaxone Sodium/Dextrose 2 (gm/ Premix) 50 mls @ 100 mls/hr IV Q24H [facility] Last Admin: 09/20/19 08:23 Dose: 100 mls/hr Insulin Aspart (Novolog) 0 unit SUBCUT WITHMEALSANDBED [facility]; Protocol Last Admin: 09/21/19 07:17 Dose: Not Given Melatonin (Melatonin) 3 mg PO BEDTIME PRN PRN Reason: Insomnia Last Admin: 09/20/19 22:32 Dose: 3 mg Metoprolol Tartrate (Lopressor) 25 mg PO Q12H [facility] Last Admin: 09/21/19 08:30 Dose: 25 mg Ondansetron HCl (Zofran) 4 mg IVPUSH Q4H PRN PRN Reason: Nausea/Vomiting Potassium Chloride (Klor-Con 10) 10 meq PO TID [facility] Simethicone (Simethicone) 80 mg PO TIDAC PRN PRN Reason: Gas Last Admin: 09/18/19 23:19 Dose: 80 mg Discontinued Medications Acetaminophen (Tylenol) 650 mg PO NOW ONE Stop: 09/13/19 10:52 Last Admin: 09/13/19 10:54 Dose: 650 mg Digoxin (Lanoxin) 500 mcg IVPUSH ONETIME ONE Stop: 09/13/19 21:16 Last Admin: 09/13/19 21:31 Dose: 500 mcg Digoxin (Lanoxin) 250 mcg IVPUSH Q4H [facility] Stop: 09/14/19 05:01 Last Admin: 09/14/19 05:43 Dose: Not Given Diltiazem HCl (Diltiazem) 20 mg IVPUSH ONETIME ONE Stop: 09/13/19 21:49 Last Admin: 09/13/19 23:38 Dose: 20 mg Furosemide (Lasix) 20 mg IVPUSH NOW ONE Stop: 09/17/19 12:36 Last Admin: 09/17/19 13:22 Dose: 20 mg Furosemide (Lasix) 40 mg IVPUSH NOW ONE Stop: 09/18/19 09:29 Last Admin: 09/18/19 09:50 Dose: 40 mg Furosemide (Lasix) 40 mg IVPUSH NOW ONE Stop: 09/19/19 10:00 Last Admin: 09/19/19 10:20 Dose: 40 mg Cefepime HCl 1 gm/ Premix 50 mls @ 100 mls/hr IV ONETIME ONE Stop: 09/13/19 10:52 Last Admin: 09/13/19 10:58 Dose: 100 mls/hr Sodium Chloride (Normal Saline) 500 mls @ 1,000 mls/hr IV .BOLUS [facility] Last Admin: 09/13/19 10:27 Dose: 1,000 mls/hr Sodium Chloride (Normal Saline) 500 mls @ 999 mls/hr IV .BOLUS [facility] Norepinephrine Bitartrate (Norepinephr-0.9% Nacl 4 Mg/250) 4 mg in 250 mls @ 7.5 mls/hr IV TITRATE [facility]; Protocol Last Titration: 09/13/19 20:40 Dose: 0 mcg/min, 0 mls/hr Dopamine HCl/Dextrose (Dopamine In D5w 400 Mg/250 Ml) 400 mg in 250 mls @ 10.485 mls/hr IV ASDIRECTED [facility]; Protocol Last Titration: 09/15/19 05:47 Dose: 0 mcg/kg/min, 0 mls/hr Sodium Chloride (Normal Saline) 1,000 mls @ 999 mls/hr IV ONETIME ONE Stop: 09/13/19 16:53 Last Admin: 09/13/19 16:05 Dose: 999 mls/hr Piperacillin Sod/Tazobactam (Sod 4.5 gm/ Sodium Chloride) 100 mls @ 100 mls/hr IV Q8H [facility] Last Admin: 09/17/19 08:17 Dose: 100 mls/hr Vancomycin HCl 2 gm/ Sodium (Chloride) 500 mls @ 250 mls/hr IV Q24H [facility] Last Admin: 09/14/19 17:49 Dose: 250 mls/hr Phenylephrine HCl 10 mg/ (Sodium Chloride) 100 mls @ 24 mls/hr IV TITRATE [facility]; Protocol Last Titration: 09/14/19 03:05 Dose: 60 mcg/min, 36 mls/hr Phenylephrine HCl 50 mg/ (Sodium Chloride) 500 mls @ 24 mls/hr IV TITRATE MARIANNA; Protocol Last Titration: 09/15/19 09:30 Dose: 0 mcg/min, 0 mls/hr Ceftriaxone Sodium/Dextrose 1 (gm/ Premix) 50 mls @ 100 mls/hr IV Q24H MARIANNA Last Admin: 09/18/19 09:15 Dose: 100 mls/hr Insulin Aspart (Novolog) 0 unit SUBCUT Q6H MARIANNA; Protocol Last Admin: 09/15/19 17:22 Dose: Not Given Phenylephrine HCl (Tai-Synephrine) Confirm Administered Dose 10 mg .ROUTE .STK- MED ONE Stop: 09/13/19 20:19 Last Admin: 09/13/19 20:42 Dose: Not Given Phenylephrine HCl (Tai-Synephrine) Confirm Administered Dose 10 mg .ROUTE .STK- MED ONE Stop: 09/13/19 20:29 Last Admin: 09/13/19 20:42 Dose: Not Given Phenylephrine HCl (Tai-Synephrine) Confirm Administered Dose 10 mg .ROUTE .STK- MED ONE Stop: 09/13/19 22:39 Last Admin: 09/13/19 23:03 Dose: Not Given Phenylephrine HCl (Tai-Synephrine) Confirm Administered Dose 10 mg .ROUTE .STK- MED ONE Stop: 09/14/19 00:54 Last Admin: 09/14/19 01:13 Dose: Not Given Potassium Chloride (Klor-Con M20) 40 meq PO ONETIME ONE Stop: 09/16/19 08:26 Last Admin: 09/16/19 08:47 Dose: 40 meq Potassium Chloride (Klor-Con M20) 40 meq PO ONETIME ONE Stop: 09/20/19 07:15 Last Admin: 09/20/19 08:09 Dose: 40 meq Vancomycin HCl (Pharmacy To Dose - Vancomycin) 1 dose .XX ASDIRECTED MARIANNA - Exam General: Alert, Oriented, Cooperative Lungs: Clear to Auscultation, Normal Respiratory Effort Cardiovascular: Irregular Rhythm GI/Abdominal Exam: Normal Bowel Sounds, Soft, Non-Tender, No Distention Extremities: Pedal Edema Skin: Warm, Dry Neurological: No New Focal Deficit Psy/Mental Status: Alert, Normal Affect, Normal Mood Sepsis Event Note - Evaluation Sepsis Screening Result: No Definite Risk - Focused Exam Vital Signs: Vital Signs Temp Pulse Pulse Resp BP BP Pulse Ox 09/21/19 08:30 65 139/71 09/21/19 08:00 97.6 F 65 18 139/71 91 L 09/21/19 03:44 97.9 F 73 19 140/73 93 L 09/21/19 00:00 98.7 F 85 19 133/63 92 L 09/20/19 21:14 73 140/83 Date Exam was Performed: 09/21/19 Time Exam was Performed: 08:35 - Problem List Review Problem List Initiated/Reviewed/Updated: Yes - My Orders Last 24 Hours: My Active Orders 09/21/19 14:00 Potassium Chloride [Klor-Con 10] 10 meq PO TID 09/22/19 05:11 BASIC METABOLIC PANEL,BMP [CHEM] AM CBC WITH AUTO DIFF [HEME] AM - Plan Plan:: 1. Septic shock secondary to Ecoli bacteremia and UTI-sepsis resolved-Continue Rocephin. All repeat cultures growing Ecoli. Repeat UA showed no infection. Repeat Blood cultures pending. 2. Acute hypoxic respiratory failure secondary to CHF- resolved- back to baseline oxygen requirement. Resume home lasix dose. Unable to complete echo. 3. DMII- accuchecks and sliding scale. HA1c 7.3 4. Difficulty swallowing- will eventually need barium swallow study which is not available at this facility. Family and patient want him to eat, knowing the risk of aspiration. 5. Chronic conditions- CHF, CAD, Afib, HTN- BP stable but HR increasing, will restart metoprolol but at lower dose, 25 BID. Continue Eliquis. PT consulted ordered.
[2019-09-21] MEDS: cefTRIAXone 2 GM in Premix Bag 1 BAG IV SCH (08:40)
--- NOTE | 2019-09-21 10:23 | PCM.DCSUM1 ---
<Teresita Lopez - Last Filed: 09/21/19 10:46> Discharge Summary - Hospital Course Free Text/Narrative:: Admission Date: 09/13/19 Discharge Date: 09/21/19 Admission Diagnosis: 1. Septic shock with acute hypoxic respiratory failure 2. UTI with indwelling catheter 3. ESTEE Discharge Diagnosis: 1. Septic shock with Ecoli bacteremia and UTI- resolved 2. Acute hypoxic respiratory failure- resolved 3. ESTEE- resolved 4. New onset DMII 5. Chronic conditions- CAD, Afib, CHF, HTN Procedures: None Consults: None Hospital Course: The patient is a 84 year old male with past medical history of CHF, CAD, Afib, indwelling catheter who lives at [facility]. At the correction he was found to have a 103F fever and was hypoxic in the 80s. In the ER, work up revealed white count of 10 but high neutrophil count. INR and lactate wnl. He did have an elevated D-dimer. He also has a ESTEE with BUN/Cr of 36/2.0. BNP was 338 and CRp was 23. UA positive for bacteria and leuk est. COVID negative. CXR revealed cardiomegaly. EKG showed Afib. Was initially on 15 L non rebreather and transitioned to Bipap. He was hypotensive with SPB in the 60s, no improvement with fluid bolus, so central line was placed and Levophed was started. Given dose of Cefepime in the ER. He was admitted to the ICU. Over the course of his stay he required several pressors but eventually was weaned and maintained his blood pressure without support. Once blood pressure was stable he was diuresed and his oxygenation improved. He was able to be weaned to baseline oxygen requirement. Blood and urine cultures grew out multi-resistant Ecoli but sensitive to Rocephin.. He had several studies completed. US of lower extremity was negative for DVT. Renal US was negative for acute process. 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 Echo was unable to be completed, no window available. He did developed difficulty swallowing and coughing with eating. Speech therapy was consulted and recommend barium swallow. The situation was discussed with family and patient. The facility does not have the capability to complete this study and both patient and family declined transfer. They all decided they would allow him to eat knowing he may aspirate, and his condition could deteriorate None of the parties involved wanted a feeding tube. He was found to have new onset DMII with HA1c of 7.3%. It was treated with sliding scale. As he improved, he was transferred to the medical floor and PT worked with him. Repeat urine showed no sign of infection. Repeat blood cultures were clear at time of discharge. Will need at least one month of IV Rocephin and then repeat cultures. Disposition: [facility] Discharge Condition: vitals stable, tolerating oral diet, ambulating without difficulty, symptom improvement. Family wants his code status to continue to be DNR/DNI. Discharge Instructions: regular diet as tolerated, activity as tolerated, take medications as prescribed. Symptoms to report to physician include fever/chills , chest pain, shortness of breath, abdominal pain, erythema, drainage/discharge , or not improving as expected. PT/OT. Ramirez cares. Will need outpatient PICC line placement. Discharge Medications: Finasteride [Proscar] 5 mg PO DAILY Glucosam/Chond/Collagen/Hyalur [Glucosamine Chondroitin] 1 tab PO DAILY Lutein 10 mg PO DAILY Garlic 1 tab PO DAILY Loratadine 10 mg PO DAILY Potassium Chloride [Klor-Con 10] 10 meq PO TID Furosemide 40 mg PO BID Gabapentin [Neurontin] 300 mg PO TID Metoprolol Tartrate 125 mg PO BID Mineral Oil 30 ml PO DAILY PRN Acetaminophen [Tylenol] 650 mg PO Q4H PRN Allopurinol [Zyloprim] 300 mg PO DAILY Naproxen Sodium [Aleve] 220 mg PO Q12H PRN Ammonium Lactate [Lac-Hydrin 12% Crm] 140 gm TRDERM Q12H PRN MDD Dry Skin Apixaban [Eliquis] 5 mg PO BID Menthol [Biofreeze] 118 ml TP ASDIRECTED PRN Mupirocin Oint [Bactroban Oint] 22 gm TP QID Simvastatin 40 mg PO BEDTIME Tamsulosin HCl 0.8 mg PO DAILY cefTRIAXone [Rocephin in Dextrose,Iso-Osm 2 GM/50 ML] 2 gm IV Q24H 30 Days metFORMIN [Glucophage] 500 mg PO BIDMEALS Follow-up: 1. Dr. Sosa will continue to follow in [place] 2. Dr. Wells on 10/16/19 3. PICC line placement 4. Recommend repeat blood cultures in 1 month to assess need for further antibiotics. - Discharge Data Discharge Date: 09/21/19 Discharge Disposition: DC/Tfer to SNF 03 Condition: Critical - Referral to Home Health Primary Care Physician: PCP Unobtainable - Patient Summary/Data Consults: Consultations 09/15/19 07:53 Consult to Speech Language Pathology [GAME ATTENDANT Evaluation and Treatment] [CONS] Routine 09/16/19 14:47 Consult to Physical Therapy [PT Evaluation and Treatment] [CONS] Routine - Patient Instructions Diet: Regular Diet as Tolerated Activity: As Tolerated Showering/Bathing: May Shower Notify Provider of: Fever, Increased Pain, Swelling and Redness, Drainage, Nausea and/or Vomiting Other/Special Instructions: Additional symptoms include chest pain, shortness of breath, or abdominal pain. - Discharge Plan *PRESCRIPTION DRUG MONITORING PROGRAM REVIEWED*: No *COPY OF PRESCRIPTION DRUG MONITORING REPORT IN PATIENT JONATHAN: No Prescriptions/Med Rec: cefTRIAXone [Rocephin in Dextrose,Iso-Osm 2 GM/50 ML] 2 gm IV Q24H 30 Days #30 bag metFORMIN [Glucophage] 500 mg PO BIDMEALS 7 Days #14 tab Home Medications: Home Meds Finasteride [Proscar] 5 mg PO DAILY 12/27/13 [History] Glucosam/Chond/Collagen/Hyalur [Glucosamine Chondroitin] 1 tab PO DAILY [History] Lutein 10 mg PO DAILY 12/27/13 [History] Garlic 1 tab PO DAILY 08/07/19 [History] Loratadine 10 mg PO DAILY 08/07/19 [History] Potassium Chloride [Klor-Con 10] 10 meq PO TID 08/07/19 [History] Furosemide 40 mg PO BID #30 tablet 08/15/19 [Rx] Gabapentin [Neurontin] 300 mg PO TID 09/13/19 [History] Metoprolol Tartrate 125 mg PO BID 09/13/19 [History] Mineral Oil 30 ml PO DAILY PRN 09/13/19 [History] Acetaminophen [Tylenol] 650 mg PO Q4H PRN 09/14/19 [History] Allopurinol [Zyloprim] 300 mg PO DAILY 09/14/19 [History] Naproxen Sodium [Aleve] 220 mg PO Q12H PRN 09/14/19 [History] Ammonium Lactate [Lac-Hydrin 12% Crm] 140 gm TRDERM Q12H PRN MDD Dry Skin [History] Apixaban [Eliquis] 5 mg PO BID 09/19/19 [History] Menthol [Biofreeze] 118 ml TP ASDIRECTED PRN 09/19/19 [History] Mupirocin Oint [Bactroban Oint] 22 gm TP QID 09/19/19 [History] Simvastatin 40 mg PO BEDTIME 09/19/19 [History] Tamsulosin HCl 0.8 mg PO DAILY 09/19/19 [History] cefTRIAXone [Rocephin in Dextrose,Iso-Osm 2 GM/50 ML] 2 gm IV Q24H 30 Days #30 bag 09/21/19 [Rx] metFORMIN [Glucophage] 500 mg PO BIDMEALS 7 Days #14 tab 09/21/19 [Rx] Oxygen Therapy Mode: Nasal Cannula Oxygen Flow Rate (L/min): 2 Maintain SpO2% greater than: 88 Patient Handouts: Ceftriaxone injection, Metformin tablets Referrals: James Ssoa MD [Physician] - 09/25/19 (Will be seen by Dr. Pavon on this rounding ) Benji Wells MD [Physician] - 10/16/19 2:45 pm - Discharge Summary/Plan Comment DC Time >30 min.: No - Patient Data Vitals - Most Recent: Last Vital Signs Temp 97.6 F 09/21/19 08:00 Pulse 65 09/21/19 08:30 Resp 18 09/21/19 08:00 BP 139/71 09/21/19 08:30 Pulse Ox 91 L 09/21/19 08:00 Weight - Most Recent: 135 kg I&O - Last 24 hours: Intake & Output 09/20/19 09/21/19 09/21/19 22:59 06:59 14:59 Intake Total 1080 250 Output Total 1450 1450 Balance -370 -1200 Lab Results - Last 24 hrs: Laboratory Results - last 24 hr 09/20/19 09/20/19 09/20/19 Range/Units 11:05 11:32 17:30 WBC (4.0-11.0) K/uL RBC (4.50-5.90) M/uL Hgb (13.0-17.0) g/dL Hct (38.0-50.0) % MCV (80.0-98.0) fL MCH (27.0-32.0) pg MCHC (31.0-37.0) g/dL RDW Std Deviation (28.0-62.0) fl RDW Coeff of Yanick (11.0-15.0) % Plt Count (150-400) K/uL MPV (7.40-12.00) fL Add Manual Diff Neutrophils % (Manual) (48.0-80.0) % Band Neutrophils % % Lymphocytes % (Manual) (16.0-40.0) % Monocytes % (Manual) (0.0-15.0) % Eosinophils % (Manual) (0.0-7.0) % Basophils % (Manual) (0.0-1.5) % Nucleated RBC % /100WBC Absolute Seg Neuts (1.4-5.7) Band Neutrophils # Lymphocytes # (Manual) (0.6-2.4) Monocytes # (Manual) (0.0-0.8) Eosinophils # (Manual) (0.0-0.7) Basophils # (Manual) (0.0-0.1) Nucleated RBCs # K/uL Sodium (136-148) mmol/L Potassium (3.5-5.1) mmol/L Chloride (98-107) mmol/L Carbon Dioxide (21.0-32.0) mmol/L BUN (7.0-18.0) mg/dL Creatinine (0.8-1.3) mg/dL Est Cr Clr Drug Dosing mL/min Estimated GFR (MDRD) ml/min Glucose (74-106) mg/dL POC Glucose 130 H 118 H (60-110) mg/dL Calcium (8.5-10.1) mg/dL Urine Color DARK YELLOW Urine Appearance CLEAR Urine pH 7.5 (5.0-8.0) Ur Specific [place] 1.020 (1.001-1.035) Urine Protein 100 H (NEGATIVE) mg/dL Urine Glucose (UA) NEGATIVE (NEGATIVE) mg/dL Urine Ketones NEGATIVE (NEGATIVE) mg/dL Urine Occult Blood SMALL H (NEGATIVE) Urine Nitrite NEGATIVE (NEGATIVE) Urine Bilirubin NEGATIVE (NEGATIVE) Urine Urobilinogen 4.0 H (<2.0) EU/dL Ur Leukocyte Esterase NEGATIVE (NEGATIVE) Urine RBC 2-5 (0-2/HPF) Urine WBC 1-4 (0-5/HPF) Ur Epithelial Cells RARE (NONE-FEW) Urine Bacteria RARE (NEGATIVE) 09/20/19 09/21/19 09/21/19 Range/Units 21:13 06:07 06:07 WBC 6.55 (4.0-11.0) K/uL RBC 3.41 L (4.50-5.90) M/uL Hgb 9.4 L (13.0-17.0) g/dL Hct 30.6 L (38.0-50.0) % MCV 89.7 (80.0-98.0) fL MCH 27.6 (27.0-32.0) pg MCHC 30.7 L (31.0-37.0) g/dL RDW Std Deviation 53.5 (28.0-62.0) fl RDW Coeff of Yanick 17 H (11.0-15.0) % Plt Count 211 (150-400) K/uL MPV 8.60 (7.40-12.00) fL Add Manual Diff YES Neutrophils % (Manual) 72 (48.0-80.0) % Band Neutrophils % 2 % Lymphocytes % (Manual) 18 (16.0-40.0) % Monocytes % (Manual) 5 (0.0-15.0) % Eosinophils % (Manual) 2 (0.0-7.0) % Basophils % (Manual) 1 (0.0-1.5) % Nucleated RBC % 0.0 /100WBC Absolute Seg Neuts 4.7 (1.4-5.7) Band Neutrophils # 0.1 Lymphocytes # (Manual) 1.2 (0.6-2.4) Monocytes # (Manual) 0.3 (0.0-0.8) Eosinophils # (Manual) 0.1 (0.0-0.7) Basophils # (Manual) 0.1 (0.0-0.1) Nucleated RBCs # 0 K/uL Sodium 140 (136-148) mmol/L Potassium 3.2 L (3.5-5.1) mmol/L Chloride 101 (98-107) mmol/L Carbon Dioxide 33.6 H (21.0-32.0) mmol/L BUN 10 (7.0-18.0) mg/dL Creatinine 1.1 (0.8-1.3) mg/dL Est Cr Clr Drug Dosing 60.20 mL/min Estimated GFR (MDRD) > 60.0 ml/min Glucose 116 H (74-106) mg/dL POC Glucose 114 H (60-110) mg/dL Calcium 8.5 (8.5-10.1) mg/dL Urine Color Urine Appearance Urine pH (5.0-8.0) Ur Specific [place] (1.001-1.035) Urine Protein (NEGATIVE) mg/dL Urine Glucose (UA) (NEGATIVE) mg/dL Urine Ketones (NEGATIVE) mg/dL Urine Occult Blood (NEGATIVE) Urine Nitrite (NEGATIVE) Urine Bilirubin (NEGATIVE) Urine Urobilinogen (<2.0) EU/dL Ur Leukocyte Esterase (NEGATIVE) Urine RBC (0-2/HPF) Urine WBC (0-5/HPF) Ur Epithelial Cells (NONE-FEW) Urine Bacteria (NEGATIVE) 09/21/19 Range/Units 06:22 WBC (4.0-11.0) K/uL RBC (4.50-5.90) M/uL Hgb (13.0-17.0) g/dL Hct (38.0-50.0) % MCV (80.0-98.0) fL MCH (27.0-32.0) pg MCHC (31.0-37.0) g/dL RDW Std Deviation (28.0-62.0) fl RDW Coeff of Yanick (11.0-15.0) % Plt Count (150-400) K/uL MPV (7.40-12.00) fL Add Manual Diff Neutrophils % (Manual) (48.0-80.0) % Band Neutrophils % % Lymphocytes % (Manual) (16.0-40.0) % Monocytes % (Manual) (0.0-15.0) % Eosinophils % (Manual) (0.0-7.0) % Basophils % (Manual) (0.0-1.5) % Nucleated RBC % /100WBC Absolute Seg Neuts (1.4-5.7) Band Neutrophils # Lymphocytes # (Manual) (0.6-2.4) Monocytes # (Manual) (0.0-0.8) Eosinophils # (Manual) (0.0-0.7) Basophils # (Manual) (0.0-0.1) Nucleated RBCs # K/uL Sodium (136-148) mmol/L Potassium (3.5-5.1) mmol/L Chloride (98-107) mmol/L Carbon Dioxide (21.0-32.0) mmol/L BUN (7.0-18.0) mg/dL Creatinine (0.8-1.3) mg/dL Est Cr Clr Drug Dosing mL/min Estimated GFR (MDRD) ml/min Glucose (74-106) mg/dL POC Glucose 107 (60-110) mg/dL Calcium (8.5-10.1) mg/dL Urine Color Urine Appearance Urine pH (5.0-8.0) Ur Specific [place] (1.001-1.035) Urine Protein (NEGATIVE) mg/dL Urine Glucose (UA) (NEGATIVE) mg/dL Urine Ketones (NEGATIVE) mg/dL Urine Occult Blood (NEGATIVE) Urine Nitrite (NEGATIVE) Urine Bilirubin (NEGATIVE) Urine Urobilinogen (<2.0) EU/dL Ur Leukocyte Esterase (NEGATIVE) Urine RBC (0-2/HPF) Urine WBC (0-5/HPF) Ur Epithelial Cells (NONE-FEW) Urine Bacteria (NEGATIVE) JOSE ARMANDO Results - Last 24 hrs: Microbiology 09/16/19 10:15 Aerobic Blood Culture - Final Blood NO GROWTH AFTER 5 DAYS Anaerobic Blood Culture - Final Escherichia Coli 09/16/19 09:30 Aerobic Blood Culture - Final Blood NO GROWTH AFTER 5 DAYS Anaerobic Blood Culture - Final NO GROWTH AFTER 5 DAYS Med Orders - Current: Current Medications Acetaminophen (Tylenol) 650 mg PO Q4H PRN PRN Reason: Pain/Fever Last Admin: 09/20/19 22:31 Dose: 650 mg Apixaban (Eliquis) 2.5 mg PO BID MARIANNA Last Admin: 09/21/19 08:30 Dose: 2.5 mg Docusate Sodium (Colace) 100 mg PO BID PRN PRN Reason: Constipation Last Admin: 09/19/19 23:11 Dose: 100 mg Furosemide (Lasix) 40 mg PO BIDDIURETIC MARIANNA Last Admin: 09/21/19 08:30 Dose: 40 mg Pantoprazole Sodium 40 mg/ (Sodium Chloride) 10 mls @ 300 mls/hr IV DAILY MARIANNA Last Admin: 09/21/19 08:31 Dose: 300 mls/hr Ceftriaxone Sodium/Dextrose 2 (gm/ Premix) 50 mls @ 100 mls/hr IV Q24H [facility] Last Admin: 09/21/19 08:40 Dose: 100 mls/hr Insulin Aspart (Novolog) 0 unit SUBCUT WITHMEALSANDBED [facility]; Protocol Last Admin: 09/21/19 07:17 Dose: Not Given Melatonin (Melatonin) 3 mg PO BEDTIME PRN PRN Reason: Insomnia Last Admin: 09/20/19 22:32 Dose: 3 mg Metoprolol Tartrate (Lopressor) 25 mg PO Q12H [facility] Last Admin: 09/21/19 08:30 Dose: 25 mg Ondansetron HCl (Zofran) 4 mg IVPUSH Q4H PRN PRN Reason: Nausea/Vomiting Potassium Chloride (Klor-Con 10) 10 meq PO TID [facility] Simethicone (Simethicone) 80 mg PO TIDAC PRN PRN Reason: Gas Last Admin: 09/18/19 23:19 Dose: 80 mg Discontinued Medications Acetaminophen (Tylenol) 650 mg PO NOW ONE Stop: 09/13/19 10:52 Last Admin: 09/13/19 10:54 Dose: 650 mg Digoxin (Lanoxin) 500 mcg IVPUSH ONETIME ONE Stop: 09/13/19 21:16 Last Admin: 09/13/19 21:31 Dose: 500 mcg Digoxin (Lanoxin) 250 mcg IVPUSH Q4H [facility] Stop: 09/14/19 05:01 Last Admin: 09/14/19 05:43 Dose: Not Given Diltiazem HCl (Diltiazem) 20 mg IVPUSH ONETIME ONE Stop: 09/13/19 21:49 Last Admin: 09/13/19 23:38 Dose: 20 mg Furosemide (Lasix) 20 mg IVPUSH NOW ONE Stop: 09/17/19 12:36 Last Admin: 09/17/19 13:22 Dose: 20 mg Furosemide (Lasix) 40 mg IVPUSH NOW ONE Stop: 09/18/19 09:29 Last Admin: 09/18/19 09:50 Dose: 40 mg Furosemide (Lasix) 40 mg IVPUSH NOW ONE Stop: 09/19/19 10:00 Last Admin: 09/19/19 10:20 Dose: 40 mg Cefepime HCl 1 gm/ Premix 50 mls @ 100 mls/hr IV ONETIME ONE Stop: 09/13/19 10:52 Last Admin: 09/13/19 10:58 Dose: 100 mls/hr Sodium Chloride (Normal Saline) 500 mls @ 1,000 mls/hr IV .BOLUS MARIANNA Last Admin: 09/13/19 10:27 Dose: 1,000 mls/hr Sodium Chloride (Normal Saline) 500 mls @ 999 mls/hr IV .BOLUS MARIANNA Norepinephrine Bitartrate (Norepinephr-0.9% Nacl 4 Mg/250) 4 mg in 250 mls @ 7.5 mls/hr IV TITRATE MARIANNA; Protocol Last Titration: 09/13/19 20:40 Dose: 0 mcg/min, 0 mls/hr Dopamine HCl/Dextrose (Dopamine In D5w 400 Mg/250 Ml) 400 mg in 250 mls @ 10.485 mls/hr IV ASDIRECTED MARIANNA; Protocol Last Titration: 09/15/19 05:47 Dose: 0 mcg/kg/min, 0 mls/hr Sodium Chloride (Normal Saline) 1,000 mls @ 999 mls/hr IV ONETIME ONE Stop: 09/13/19 16:53 Last Admin: 09/13/19 16:05 Dose: 999 mls/hr Piperacillin Sod/Tazobactam (Sod 4.5 gm/ Sodium Chloride) 100 mls @ 100 mls/hr IV Q8H MARIANNA Last Admin: 09/17/19 08:17 Dose: 100 mls/hr Vancomycin HCl 2 gm/ Sodium (Chloride) 500 mls @ 250 mls/hr IV Q24H MARIANNA Last Admin: 09/14/19 17:49 Dose: 250 mls/hr Phenylephrine HCl 10 mg/ (Sodium Chloride) 100 mls @ 24 mls/hr IV TITRATE MARIANNA; Protocol Last Titration: 09/14/19 03:05 Dose: 60 mcg/min, 36 mls/hr Phenylephrine HCl 50 mg/ (Sodium Chloride) 500 mls @ 24 mls/hr IV TITRATE MARIANNA; Protocol Last Titration: 09/15/19 09:30 Dose: 0 mcg/min, 0 mls/hr Ceftriaxone Sodium/Dextrose 1 (gm/ Premix) 50 mls @ 100 mls/hr IV Q24H MARAINNA Last Admin: 09/18/19 09:15 Dose: 100 mls/hr Insulin Aspart (Novolog) 0 unit SUBCUT Q6H MARIANNA; Protocol Last Admin: 09/15/19 17:22 Dose: Not Given Phenylephrine HCl (Tai-Synephrine) Confirm Administered Dose 10 mg .ROUTE .STK- MED ONE Stop: 09/13/19 20:19 Last Admin: 09/13/19 20:42 Dose: Not Given Phenylephrine HCl (Tai-Synephrine) Confirm Administered Dose 10 mg .ROUTE .STK- MED ONE Stop: 09/13/19 20:29 Last Admin: 09/13/19 20:42 Dose: Not Given Phenylephrine HCl (Tai-Synephrine) Confirm Administered Dose 10 mg .ROUTE .STK- MED ONE Stop: 09/13/19 22:39 Last Admin: 09/13/19 23:03 Dose: Not Given Phenylephrine HCl (Tai-Synephrine) Confirm Administered Dose 10 mg .ROUTE .STK- MED ONE Stop: 09/14/19 00:54 Last Admin: 09/14/19 01:13 Dose: Not Given Potassium Chloride (Klor-Con M20) 40 meq PO ONETIME ONE Stop: 09/16/19 08:26 Last Admin: 09/16/19 08:47 Dose: 40 meq Potassium Chloride (Klor-Con M20) 40 meq PO ONETIME ONE Stop: 09/20/19 07:15 Last Admin: 09/20/19 08:09 Dose: 40 meq Vancomycin HCl (Pharmacy To Dose - Vancomycin) 1 dose .XX ASDIRECTED [facility] <Paula Oneill - Last Filed: 09/21/19 11:03> Discharge Summary - Hospital Course Free Text/Narrative:: I have seen and evaluated the patient and agree with the residents note unless specified in my note - Referral to Home Health Primary Care Physician: PCP Unobtainable - Patient Summary/Data Consults: Consultations 09/15/19 07:53 Consult to Speech Language Pathology [GAME ATTENDANT Evaluation and Treatment] [CONS] Routine 09/16/19 14:47 Consult to Physical Therapy [PT Evaluation and Treatment] [CONS] Routine - Patient Data Vitals - Most Recent: Last Vital Signs Temp 36.4 C 09/21/19 08:00 Pulse 65 09/21/19 08:30 Resp 18 09/21/19 08:00 BP 139/71 09/21/19 08:30 Pulse Ox 91 L 09/21/19 08:00 I&O - Last 24 hours: Intake & Output 09/20/19 09/21/19 09/21/19 22:59 06:59 14:59 Intake Total 1080 250 Output Total 1450 1450 Balance -370 -1200 Lab Results - Last 24 hrs: Laboratory Results - last 24 hr 09/20/19 09/20/19 09/20/19 Range/Units 11:05 11:32 17:30 WBC (4.0-11.0) K/uL RBC (4.50-5.90) M/uL Hgb (13.0-17.0) g/dL Hct (38.0-50.0) % MCV (80.0-98.0) fL MCH (27.0-32.0) pg MCHC (31.0-37.0) g/dL RDW Std Deviation (28.0-62.0) fl RDW Coeff of Yanick (11.0-15.0) % Plt Count (150-400) K/uL MPV (7.40-12.00) fL Add Manual Diff Neutrophils % (Manual) (48.0-80.0) % Band Neutrophils % % Lymphocytes % (Manual) (16.0-40.0) % Monocytes % (Manual) (0.0-15.0) % Eosinophils % (Manual) (0.0-7.0) % Basophils % (Manual) (0.0-1.5) % Nucleated RBC % /100WBC Absolute Seg Neuts (1.4-5.7) Band Neutrophils # Lymphocytes # (Manual) (0.6-2.4) Monocytes # (Manual) (0.0-0.8) Eosinophils # (Manual) (0.0-0.7) Basophils # (Manual) (0.0-0.1) Nucleated RBCs # K/uL Sodium (136-148) mmol/L Potassium (3.5-5.1) mmol/L Chloride (98-107) mmol/L Carbon Dioxide (21.0-32.0) mmol/L BUN (7.0-18.0) mg/dL Creatinine (0.8-1.3) mg/dL Est Cr Clr Drug Dosing mL/min Estimated GFR (MDRD) ml/min Glucose (74-106) mg/dL POC Glucose 130 H 118 H (60-110) mg/dL Calcium (8.5-10.1) mg/dL Urine Color DARK YELLOW Urine Appearance CLEAR Urine pH 7.5 (5.0-8.0) Ur Specific [place] 1.020 (1.001-1.035) Urine Protein 100 H (NEGATIVE) mg/dL Urine Glucose (UA) NEGATIVE (NEGATIVE) mg/dL Urine Ketones NEGATIVE (NEGATIVE) mg/dL Urine Occult Blood SMALL H (NEGATIVE) Urine Nitrite NEGATIVE (NEGATIVE) Urine Bilirubin NEGATIVE (NEGATIVE) Urine Urobilinogen 4.0 H (<2.0) EU/dL Ur Leukocyte Esterase NEGATIVE (NEGATIVE) Urine RBC 2-5 (0-2/HPF) Urine WBC 1-4 (0-5/HPF) Ur Epithelial Cells RARE (NONE-FEW) Urine Bacteria RARE (NEGATIVE) 09/20/19 09/21/19 09/21/19 Range/Units 21:13 06:07 06:07 WBC 6.55 (4.0-11.0) K/uL RBC 3.41 L (4.50-5.90) M/uL Hgb 9.4 L (13.0-17.0) g/dL Hct 30.6 L (38.0-50.0) % MCV 89.7 (80.0-98.0) fL MCH 27.6 (27.0-32.0) pg MCHC 30.7 L (31.0-37.0) g/dL RDW Std Deviation 53.5 (28.0-62.0) fl RDW Coeff of Yanick 17 H (11.0-15.0) % Plt Count 211 (150-400) K/uL MPV 8.60 (7.40-12.00) fL Add Manual Diff YES Neutrophils % (Manual) 72 (48.0-80.0) % Band Neutrophils % 2 % Lymphocytes % (Manual) 18 (16.0-40.0) % Monocytes % (Manual) 5 (0.0-15.0) % Eosinophils % (Manual) 2 (0.0-7.0) % Basophils % (Manual) 1 (0.0-1.5) % Nucleated RBC % 0.0 /100WBC Absolute Seg Neuts 4.7 (1.4-5.7) Band Neutrophils # 0.1 Lymphocytes # (Manual) 1.2 (0.6-2.4) Monocytes # (Manual) 0.3 (0.0-0.8) Eosinophils # (Manual) 0.1 (0.0-0.7) Basophils # (Manual) 0.1 (0.0-0.1) Nucleated RBCs # 0 K/uL Sodium 140 (136-148) mmol/L Potassium 3.2 L (3.5-5.1) mmol/L Chloride 101 (98-107) mmol/L Carbon Dioxide 33.6 H (21.0-32.0) mmol/L BUN 10 (7.0-18.0) mg/dL Creatinine 1.1 (0.8-1.3) mg/dL Est Cr Clr Drug Dosing 60.20 mL/min Estimated GFR (MDRD) > 60.0 ml/min Glucose 116 H (74-106) mg/dL POC Glucose 114 H (60-110) mg/dL Calcium 8.5 (8.5-10.1) mg/dL Urine Color Urine Appearance Urine pH (5.0-8.0) Ur Specific [place] (1.001-1.035) Urine Protein (NEGATIVE) mg/dL Urine Glucose (UA) (NEGATIVE) mg/dL Urine Ketones (NEGATIVE) mg/dL Urine Occult Blood (NEGATIVE) Urine Nitrite (NEGATIVE) Urine Bilirubin (NEGATIVE) Urine Urobilinogen (<2.0) EU/dL Ur Leukocyte Esterase (NEGATIVE) Urine RBC (0-2/HPF) Urine WBC (0-5/HPF) Ur Epithelial Cells (NONE-FEW) Urine Bacteria (NEGATIVE) 09/21/19 Range/Units 06:22 WBC (4.0-11.0) K/uL RBC (4.50-5.90) M/uL Hgb (13.0-17.0) g/dL Hct (38.0-50.0) % MCV (80.0-98.0) fL MCH (27.0-32.0) pg MCHC (31.0-37.0) g/dL RDW Std Deviation (28.0-62.0) fl RDW Coeff of [place] (11.0-15.0) % Plt Count (150-400) K/uL MPV (7.40-12.00) fL Add Manual Diff Neutrophils % (Manual) (48.0-80.0) % Band Neutrophils % % Lymphocytes % (Manual) (16.0-40.0) % Monocytes % (Manual) (0.0-15.0) % Eosinophils % (Manual) (0.0-7.0) % Basophils % (Manual) (0.0-1.5) % Nucleated RBC % /100WBC Absolute Seg Neuts (1.4-5.7) Band Neutrophils # Lymphocytes # (Manual) (0.6-2.4) Monocytes # (Manual) (0.0-0.8) Eosinophils # (Manual) (0.0-0.7) Basophils # (Manual) (0.0-0.1) Nucleated RBCs # K/uL Sodium (136-148) mmol/L Potassium (3.5-5.1) mmol/L Chloride (98-107) mmol/L Carbon Dioxide (21.0-32.0) mmol/L BUN (7.0-18.0) mg/dL Creatinine (0.8-1.3) mg/dL Est Cr Clr Drug Dosing mL/min Estimated GFR (MDRD) ml/min Glucose (74-106) mg/dL POC Glucose 107 (60-110) mg/dL Calcium (8.5-10.1) mg/dL Urine Color Urine Appearance Urine pH (5.0-8.0) Ur Specific [place] (1.001-1.035) Urine Protein (NEGATIVE) mg/dL Urine Glucose (UA) (NEGATIVE) mg/dL Urine Ketones (NEGATIVE) mg/dL Urine Occult Blood (NEGATIVE) Urine Nitrite (NEGATIVE) Urine Bilirubin (NEGATIVE) Urine Urobilinogen (<2.0) EU/dL Ur Leukocyte Esterase (NEGATIVE) Urine RBC (0-2/HPF) Urine WBC (0-5/HPF) Ur Epithelial Cells (NONE-FEW) Urine Bacteria (NEGATIVE) JOSE ARMANDO Results - Last 24 hrs: Microbiology 09/20/19 10:18 Aerobic Blood Culture - Preliminary Blood - Venous - Lab Draw NO GROWTH AFTER 1 DAY Anaerobic Blood Culture - Preliminary NO GROWTH AFTER 1 DAY 09/20/19 09:58 Aerobic Blood Culture - Preliminary Blood - Venous NO GROWTH AFTER 1 DAY Anaerobic Blood Culture - Preliminary NO GROWTH AFTER 1 DAY 09/16/19 10:15 Aerobic Blood Culture - Final Blood NO GROWTH AFTER 5 DAYS Anaerobic Blood Culture - Final Escherichia Coli 09/16/19 09:30 Aerobic Blood Culture - Final Blood NO GROWTH AFTER 5 DAYS Anaerobic Blood Culture - Final NO GROWTH AFTER 5 DAYS Med Orders - Current: Current Medications Acetaminophen (Tylenol) 650 mg PO Q4H PRN PRN Reason: Pain/Fever Last Admin: 09/20/19 22:31 Dose: 650 mg Apixaban (Eliquis) 2.5 mg PO BID [facility] Last Admin: 09/21/19 08:30 Dose: 2.5 mg Docusate Sodium (Colace) 100 mg PO BID PRN PRN Reason: Constipation Last Admin: 09/19/19 23:11 Dose: 100 mg Furosemide (Lasix) 40 mg PO BIDDIURETIC [facility] Last Admin: 09/21/19 08:30 Dose: 40 mg Pantoprazole Sodium 40 mg/ (Sodium Chloride) 10 mls @ 300 mls/hr IV DAILY [facility] Last Admin: 09/21/19 08:31 Dose: 300 mls/hr Ceftriaxone Sodium/Dextrose 2 (gm/ Premix) 50 mls @ 100 mls/hr IV Q24H [facility] Last Admin: 09/21/19 08:40 Dose: 100 mls/hr Insulin Aspart (Novolog) 0 unit SUBCUT WITHMEALSANDBED [facility]; Protocol Last Admin: 09/21/19 07:17 Dose: Not Given Melatonin (Melatonin) 3 mg PO BEDTIME PRN PRN Reason: Insomnia Last Admin: 09/20/19 22:32 Dose: 3 mg Metoprolol Tartrate (Lopressor) 25 mg PO Q12H [facility] Last Admin: 09/21/19 08:30 Dose: 25 mg Ondansetron HCl (Zofran) 4 mg IVPUSH Q4H PRN PRN Reason: Nausea/Vomiting Potassium Chloride (Klor-Con 10) 10 meq PO TID MARIANNA Simethicone (Simethicone) 80 mg PO TIDAC PRN PRN Reason: Gas Last Admin: 09/18/19 23:19 Dose: 80 mg Discontinued Medications Acetaminophen (Tylenol) 650 mg PO NOW ONE Stop: 09/13/19 10:52 Last Admin: 09/13/19 10:54 Dose: 650 mg Digoxin (Lanoxin) 500 mcg IVPUSH ONETIME ONE Stop: 09/13/19 21:16 Last Admin: 09/13/19 21:31 Dose: 500 mcg Digoxin (Lanoxin) 250 mcg IVPUSH Q4H MARIANNA Stop: 09/14/19 05:01 Last Admin: 09/14/19 05:43 Dose: Not Given Diltiazem HCl (Diltiazem) 20 mg IVPUSH ONETIME ONE Stop: 09/13/19 21:49 Last Admin: 09/13/19 23:38 Dose: 20 mg Furosemide (Lasix) 20 mg IVPUSH NOW ONE Stop: 09/17/19 12:36 Last Admin: 09/17/19 13:22 Dose: 20 mg Furosemide (Lasix) 40 mg IVPUSH NOW ONE Stop: 09/18/19 09:29 Last Admin: 09/18/19 09:50 Dose: 40 mg Furosemide (Lasix) 40 mg IVPUSH NOW ONE Stop: 09/19/19 10:00 Last Admin: 09/19/19 10:20 Dose: 40 mg Cefepime HCl 1 gm/ Premix 50 mls @ 100 mls/hr IV ONETIME ONE Stop: 09/13/19 10:52 Last Admin: 09/13/19 10:58 Dose: 100 mls/hr Sodium Chloride (Normal Saline) 500 mls @ 1,000 mls/hr IV .BOLUS MARIANNA Last Admin: 09/13/19 10:27 Dose: 1,000 mls/hr Sodium Chloride (Normal Saline) 500 mls @ 999 mls/hr IV .BOLUS MARIANNA Norepinephrine Bitartrate (Norepinephr-0.9% Nacl 4 Mg/250) 4 mg in 250 mls @ 7.5 mls/hr IV TITRATE MARIANNA; Protocol Last Titration: 09/13/19 20:40 Dose: 0 mcg/min, 0 mls/hr Dopamine HCl/Dextrose (Dopamine In D5w 400 Mg/250 Ml) 400 mg in 250 mls @ 10.485 mls/hr IV ASDIRECTED MARIANNA; Protocol Last Titration: 09/15/19 05:47 Dose: 0 mcg/kg/min, 0 mls/hr Sodium Chloride (Normal Saline) 1,000 mls @ 999 mls/hr IV ONETIME ONE Stop: 09/13/19 16:53 Last Admin: 09/13/19 16:05 Dose: 999 mls/hr Piperacillin Sod/Tazobactam (Sod 4.5 gm/ Sodium Chloride) 100 mls @ 100 mls/hr IV Q8H MARIANNA Last Admin: 09/17/19 08:17 Dose: 100 mls/hr Vancomycin HCl 2 gm/ Sodium (Chloride) 500 mls @ 250 mls/hr IV Q24H MARIANNA Last Admin: 09/14/19 17:49 Dose: 250 mls/hr Phenylephrine HCl 10 mg/ (Sodium Chloride) 100 mls @ 24 mls/hr IV TITRATE MARIANNA; Protocol Last Titration: 09/14/19 03:05 Dose: 60 mcg/min, 36 mls/hr Phenylephrine HCl 50 mg/ (Sodium Chloride) 500 mls @ 24 mls/hr IV TITRATE MARIANNA; Protocol Last Titration: 09/15/19 09:30 Dose: 0 mcg/min, 0 mls/hr Ceftriaxone Sodium/Dextrose 1 (gm/ Premix) 50 mls @ 100 mls/hr IV Q24H MARIANNA Last Admin: 09/18/19 09:15 Dose: 100 mls/hr Insulin Aspart (Novolog) 0 unit SUBCUT Q6H MARIANNA; Protocol Last Admin: 09/15/19 17:22 Dose: Not Given Phenylephrine HCl (Tai-Synephrine) Confirm Administered Dose 10 mg .ROUTE .STK- MED ONE Stop: 09/13/19 20:19 Last Admin: 09/13/19 20:42 Dose: Not Given Phenylephrine HCl (Tai-Synephrine) Confirm Administered Dose 10 mg .ROUTE .STK- MED ONE Stop: 09/13/19 20:29 Last Admin: 09/13/19 20:42 Dose: Not Given Phenylephrine HCl (Tai-Synephrine) Confirm Administered Dose 10 mg .ROUTE .STK- MED ONE Stop: 09/13/19 22:39 Last Admin: 09/13/19 23:03 Dose: Not Given Phenylephrine HCl (Tai-Synephrine) Confirm Administered Dose 10 mg .ROUTE .STK- MED ONE Stop: 09/14/19 00:54 Last Admin: 09/14/19 01:13 Dose: Not Given Potassium Chloride (Klor-Con M20) 40 meq PO ONETIME ONE Stop: 09/16/19 08:26 Last Admin: 09/16/19 08:47 Dose: 40 meq Potassium Chloride (Klor-Con M20) 40 meq PO ONETIME ONE Stop: 09/20/19 07:15 Last Admin: 09/20/19 08:09 Dose: 40 meq Vancomycin HCl (Pharmacy To Dose - Vancomycin) 1 dose .XX ASDIRECTED MARIANNA
[2019-09-21] MEDS: Potassium Chloride 10 MEQ Tab.ER PO SCH ×2 (13:56→21:08)
--- NOTE | 2019-09-21 18:10 | PCM.SN.2 ---
- Free Text/Narrative Note: Patient was discharged this morning and discharge summary completed but [facility] home then unable to take patient today. Will be discharged to [facility] in the AM.
[2019-09-21] MEDS ORDERED: Nystatin Topical Powder 15 GM Bottle TOP PRN (19:07)
[2019-09-22] MEDS: Potassium Chloride 10 MEQ Tab.ER PO SCH (05:42)
[2019-09-22 07:22] LABS: BLOOD UREA NITROGEN,BUN 12 mg/dL (7.0-18.0); CARBON DIOXIDE,CO2 32.2 mmol/L (21.0-32.0); CHLORIDE,CL 100 mmol/L (98-107); GLUCOSE RANDOM 127 mg/dL (74-106); POTASSIUM,K 3.3 mmol/L (3.5-5.1); SODIUM,NA 139 mmol/L (136-148)
[2019-09-22] MEDS: Insulin Aspart 100 Units/ML 3 ML Pen SUBCUT SCH (07:28)
[2019-09-22 07:58] VITALS: BP 136/71; PULSE 68
[2019-09-22] MEDS: Furosemide 40 MG Tab PO SCH (08:09)
[2019-09-22] MEDS: Apixaban 2.5 MG Tab PO SCH (08:11)
[2019-09-22] MEDS: cefTRIAXone 2 GM in Premix Bag 1 BAG IV SCH (08:19)
[2019-09-22] MEDS: Metoprolol Tartrate 25 MG Tab PO SCH (08:44)
[2019-09-22] MEDS: Pantoprazole 40 MG in Sodium Chloride 0.9% 10 ML IV SCH (08:53)
== END 2019-09-22 09:40 | DRG 871 ==
LOC: MW.ED 08:42 → MW.ICU 13:36 → MW.MS 09-19 11:26
PROVIDERS: ADMIT Student in an Organized Health Care Education/Training Program; ATTEND Student in an Organized Health Care Education/Training Program
PROC: 03HY32Z Insertion of Monitoring Device into Upper Artery, Percutaneous Approach (ICD-10-PCS; principal; 2019-09-13)
PROC: 3E033XZ Introduction of Vasopressor into Peripheral Vein, Percutaneous Approach (ICD-10-PCS; 2019-09-13)
DX: A41.9 Sepsis, unspecified organism (principal); J18.9 Pneumonia, unspecified organism; R09.02 Hypoxemia; H91.93 Unspecified hearing loss, bilateral; A41.51 Sepsis due to Escherichia coli [E. coli]; R65.21 Severe sepsis with septic shock; J96.01 Acute respiratory failure with hypoxia; N17.9 Acute kidney failure, unspecified; I25.10 Atherosclerotic heart disease of native coronary artery without angina pectoris; I73.9 Peripheral vascular disease, unspecified; G47.30 Sleep apnea, unspecified; Z86.010 Personal history of colon polyps; K57.90 Diverticulosis of intestine, part unspecified, without perforation or abscess without bleeding; N40.1 Benign prostatic hyperplasia with lower urinary tract symptoms; N39.498 Other specified urinary incontinence; G89.29 Other chronic pain; M54.9 Dorsalgia, unspecified; E66.9 Obesity, unspecified; Z66 Do not resuscitate; Z95.1 Presence of aortocoronary bypass graft; Z96.659 Presence of unspecified artificial knee joint; Z20.828 Contact with and (suspected) exposure to other viral communicable diseases; R13.10 Dysphagia, unspecified; I48.91 Unspecified atrial fibrillation; I11.0 Hypertensive heart disease with heart failure; I50.9 Heart failure, unspecified; E78.00 Pure hypercholesterolemia, unspecified; E11.51 Type 2 diabetes mellitus with diabetic peripheral angiopathy without gangrene; E11.65 Type 2 diabetes mellitus with hyperglycemia; Z79.899 Other long term (current) drug therapy; Z79.84 Long term (current) use of oral hypoglycemic drugs; Z98.49 Cataract extraction status, unspecified eye
CPT/HCPCS: 36415; 36556; 36600; 36620; 51702; 71045; 71045-26; 74176; 74176-26; 76770; 76770-26; 80048; 80053; 81001; 82570; 82803; 82962; 83036; 83605; 83735; 83880; 84145; 84300; 84443; 84484; 85025; 85379; 85610; 86140; 87040; 87077; 87086; 87088; 87186; 92610-GN; 93005; 93970; 93970-26; 94660; 96365; 97161-GP; 97530-GP; 99285; 99291; A9270-GY; C9113; J0692; J0696; J1160; J1265; J1815-GY; J1940; J2370; J2543; J3370; J3490; J7030; J7040; J7050; U0002

== ENCOUNTER 2020-01-10 21:41 | Inpatient (IN) | payer OTHER, MEDICARE, BC ==
[2020-01-10] MEDS ORDERED: Sodium Chloride 0.9% 2.5 ML Syringe FLUSH PRN (22:00)
[2020-01-10] MEDS ORDERED: Sodium Chloride 0.9% 10 ML Syringe FLUSH PRN (22:00)
[2020-01-10] MEDS ORDERED: Sodium Chloride 0.9% 1,000 ML IV ONE (22:00)
--- NOTE | 2020-01-10 22:00 | EDM.PDOC ---
ED HPI GENERAL MEDICAL PROBLEM - General Stated Complaint: LOW OXYGEN Time Seen by Provider: 01/10/20 21:46 Source of Information: Reports: Patient, EMS, Alf Records History Limitations: Reports: No Limitations - History of Present Illness INITIAL COMMENTS - FREE TEXT/NARRATIVE: 84M PMHx CHF on lasix, HTN, CAD h/o cabg, PVD, WAQAR on CPAP, chronic respiratory failure on 2-L NC, Afib on NOAC, chronic b/l LE wounds presenting for low O2, confusion, and weakness. From NH, patient had tea colored urine since this morning and was noted to have O2 sats in low 90s despite nasal canula O2. He was more confused to them. Patient denies any complaints and wants to go home. He denies SOB, abdominal pain, N/V, dysuria, cough, or any other complaints. - Related Data Allergies Allergy/AdvReac Type Severity Reaction Status Date / Time No Known Allergies Allergy Verified 09/19/19 16:01 Home Meds: Home Meds Finasteride [Proscar] 5 mg PO DAILY 12/27/13 [History] Glucosam/Chond/Collagen/Hyalur [Glucosamine Chondroitin] 1 tab PO DAILY 12/27/13 [History] Lutein 10 mg PO DAILY 12/27/13 [History] Garlic 1 tab PO DAILY 08/07/19 [History] Loratadine 10 mg PO DAILY 08/07/19 [History] Potassium Chloride [Klor-Con 10] 10 meq PO TID 08/07/19 [History] Gabapentin [Neurontin] 300 mg PO TID 09/13/19 [History] Metoprolol Tartrate 125 mg PO BID 09/13/19 [History] Mineral Oil 30 ml PO DAILY PRN 09/13/19 [History] Acetaminophen [Tylenol] 650 mg PO Q4H PRN 09/14/19 [History] Allopurinol [Zyloprim] 300 mg PO DAILY 09/14/19 [History] Naproxen Sodium [Aleve] 220 mg PO Q12H PRN 09/14/19 [History] Ammonium Lactate [Lac-Hydrin 12% Crm] 140 gm TRDERM Q12H PRN MDD Dry Skin 09/19/19 [History] Apixaban [Eliquis] 5 mg PO BID 09/19/19 [History] Menthol [Biofreeze] 118 ml TP ASDIRECTED PRN 09/19/19 [History] Simvastatin 40 mg PO BEDTIME 09/19/19 [History] Tamsulosin HCl 0.8 mg PO DAILY 09/19/19 [History] metFORMIN [Glucophage] 500 mg PO BIDMEALS 7 Days #14 tab 09/21/19 [Rx] Amino Acids/Protein Hydrolys [Prosource No Carb Liquid Pkt] 1 oz PO TID 01/10/20 [History] Ascorbic Acid [Vitamin C] 500 mg PO TID 01/10/20 [History] Carbamide Peroxide [Debrox] 15 ml OT Q12HR 01/10/20 [History] Finasteride 5 mg PO DAILY 01/10/20 [History] Furosemide 80 mg PO BID 01/10/20 [History] metOLazone [Metolazone] 2.5 mg PO ASDIRECTED 01/10/20 [History] Past Medical History HEENT History: Reports: Allergic Rhinitis, Hard of Hearing Other HEENT History: has upper removable partial denture and bilateral hearing aides, dysphagia. dentures are at home. [facility] Cardiovascular History: Reports: Afib, Bypass, CAD, Heart Failure, High Cholesterol, Hypertension, PVD, Other (See Below) Other Cardiovascular History: venous insufficiency, occulsion and stenosis of right carotid artery Respiratory History: Reports: Sleep Apnea, Other (See Below) Other Respiratory History: hx of hypoxemia Gastrointestinal History: Reports: Colon Polyp, Diverticulosis, Other (See Below) Other Gastrointestinal History: abdominal hernia unspecified Genitourinary History: Reports: BPH, Diabetic Nephropathy, Urinary Incontinence Musculoskeletal History: Reports: Back Pain, Chronic, Osteoarthritis, Other (See Below) Other Musculoskeletal History: muscle weakness Neurological History: Reports: None Psychiatric History: Reports: None Endocrine/Metabolic History: Reports: Diabetes, Type II, Obesity/BMI 30+ Hematologic History: Reports: None Immunologic History: Reports: None Oncologic (Cancer) History: Reports: None Dermatologic History: Reports: Cellulitis, Other (See Below) Other Dermatologic History: edmea - Infectious Disease History Infectious Disease History: Reports: Chicken Pox, Measles, Mumps - Past Surgical History Head Surgeries/Procedures: Reports: None Cardiovascular Surgical History: Reports: Carotid Endarterectomy, Coronary Artery Bypass Respiratory Surgical History: Reports: None GI Surgical History: Reports: Appendectomy, Colonoscopy, Hernia, Abdominal Male Surgical History: Reports: None Endocrine Surgical History: Reports: None Neurological Surgical History: Reports: None Musculoskeletal Surgical History: Reports: Knee Replacement Other Musculoskeletal Surgeries/Procedures:: LKR Oncologic Surgical History: Reports: None Dermatological Surgical History: Reports: None Social & Family History - Family History Family Medical History: Noncontributory - Tobacco Use Smoking Status *Q: Former Smoker Used Tobacco, but Quit: Yes Month/Year Tobacco Last Used: 1979 - Caffeine Use Caffeine Use: Reports: Coffee Caffeine Use Comment: 3 cups of coffee day - Recreational Drug Use Recreational Drug Use: No - Living Situation & Occupation Living situation: Reports: Single Occupation: Retired ED ROS GENERAL - Review of Systems Review Of Systems: Comprehensive ROS is negative, except as noted in HPI. ED EXAM, GENERAL - Physical Exam Exam: See Below Exam Limited By: No Limitations General Appearance: Alert, WD/WN, No Apparent Distress Ears: Normal External Exam Nose: Normal Inspection Throat/Mouth: Normal Inspection, Normal Voice, No Airway Compromise Head: Atraumatic, Normocephalic Neck: Normal Inspection Respiratory/Chest: No Respiratory Distress, Lungs Clear, Normal Breath Sounds, No Accessory Muscle Use Cardiovascular: Normal Peripheral Pulses, Regular Rate, Rhythm GI/Abdominal: Soft, Non-Tender Extremities: Other (b/l chronic venous stasis changes w/ chronic wounds well appearing without evidence of infection) Neurological: Alert Psychiatric: Normal Affect, Normal Mood Skin Exam: Warm, Dry, Intact EKG INTERPRETATION EKG Date: 01/10/20 Time: 22:30 Rhythm: A-Fib Rate (Beats/Min): 68 [place]: Normal P-Wave: Present QRS: Normal ST-T: Normal QT: Normal Course - Vital Signs Last Recorded V/S: Last Vital Signs Temp 96.7 F L 01/10/20 21:49 Pulse 78 01/11/20 00:00 Resp 20 01/11/20 00:00 BP 100/58 L 01/11/20 01:23 Pulse Ox 95 01/11/20 00:00 - Orders/Labs/Meds Orders: Active Orders 24 hr Category Date Time Status Patient Status [ADT] Routine ADT 01/11/20 01:51 Ordered Cardiac Monitoring [RC] . DIRECTED Care 01/10/20 22:00 Active EKG Documentation Completion [RC] STAT Care 01/10/20 22:00 Active Insert Ramirez Catheter [Insert Urinary Catheter] [OM.PC] Care 01/11/20 00:15 Ordered Q24H Pulse Oximetry [RC] ASDIRECTED Care 01/10/20 22:00 Active Urinary Catheter Assessment [RC] ASDIRECTED Care 01/11/20 00:11 Active CORONAVIRUS COVID-19 PCR PHL Stat Lab 01/10/20 22:00 Ordered CULTURE BLOOD [BC] Stat Lab 01/10/20 22:15 Received CULTURE BLOOD [BC] Stat Lab 01/10/20 22:24 Received LACTATE WITH REFLEX [BG] Stat Lab 01/11/20 01:50 Ordered Sodium Chloride 0.9% [Normal Saline] 1,000 ml Med 01/10/20 23:45 Active IV ASDIRECTED Sodium Chloride 0.9% [Saline Flush] Med 01/10/20 22:00 Active 10 ml FLUSH ASDIRECTED PRN Sodium Chloride 0.9% [Saline Flush] Med 01/10/20 22:00 Active 2.5 ml FLUSH ASDIRECTED PRN cefTRIAXone [Rocephin in Dextrose,Iso-Osm 1 GM/50 ML] 1 Med 01/11/20 01:40 Active gm Premix Bag 1 bag IV ONETIME Blood Culture x2 Reflex Set [OM.PC] Stat Oth 01/10/20 22:02 Ordered Saline Lock Insert [OM.PC] Stat Oth 01/10/20 22:00 Ordered Medication Orders Sodium Chloride (Normal Saline) 1,000 mls @ 125 mls/hr IV ASDIRECTED MARIANNA Last Infusion: 01/11/20 01:40 Dose: 999 mls/hr Documented by: Admin: 01/11/20 00:47 Dose: 125 mls/hr Documented by: ASIYA Ceftriaxone Sodium/Dextrose 1 (gm/ Premix) 50 mls @ 100 mls/hr IV ONETIME ONE Stop: 01/11/20 02:09 Sodium Chloride (Saline Flush) 10 ml FLUSH ASDIRECTED PRN PRN Reason: Keep Vein Open Sodium Chloride (Saline Flush) 2.5 ml FLUSH ASDIRECTED PRN PRN Reason: Keep Vein Open Labs: Laboratory Tests 01/10/20 01/10/20 01/10/20 Range/Units 21:50 21:50 21:50 WBC 10.25 (4.0-11.0) K/uL RBC 4.15 L (4.50-5.90) M/uL Hgb 11.1 L (13.0-17.0) g/dL Hct 36.7 L (38.0-50.0) % MCV 88.4 (80.0-98.0) fL MCH 26.7 L (27.0-32.0) pg MCHC 30.2 L (31.0-37.0) g/dL RDW Std Deviation 55.6 (28.0-62.0) fl RDW Coeff of [place] 17 H (11.0-15.0) % Plt Count 140 L (150-400) K/uL MPV 9.50 (7.40-12.00) fL Neut % (Auto) 88.7 H (48.0-80.0) % Lymph % (Auto) 4.6 L (16.0-40.0) % [place] % (Auto) 6.3 (0.0-15.0) % Eos % (Auto) 0.3 (0.0-7.0) % Baso % (Auto) 0.1 (0.0-1.5) % Neut # (Auto) 9.1 H (1.4-5.7) K/uL Lymph # (Auto) 0.5 L (0.6-2.4) K/uL [place] # (Auto) 0.7 (0.0-0.8) K/uL Eos # (Auto) 0.0 (0.0-0.7) K/uL Baso # (Auto) 0.0 (0.0-0.1) K/uL Nucleated RBC % 0.0 /100WBC Nucleated RBCs # 0 K/uL Lactate 2.6 H* (0.20-2.00) mmol/L Sodium 141 (136-148) mmol/L Potassium 3.6 (3.5-5.1) mmol/L Chloride 101 (98-107) mmol/L Carbon Dioxide 30.6 (21.0-32.0) mmol/L BUN 41 H (7.0-18.0) mg/dL Creatinine 1.6 H (0.8-1.3) mg/dL Est Cr Clr Drug Dosing TNP Estimated GFR (MDRD) 41.6 ml/min Glucose 159 H (74-106) mg/dL Calcium 8.8 (8.5-10.1) mg/dL Magnesium 2.0 (1.8-2.4) mg/dL Total Bilirubin 0.6 (0.2-1.0) mg/dL AST 15 (15-37) IU/L ALT 13 L (14-63) IU/L Alkaline Phosphatase 99 (46-116) U/L Troponin I < 0.050 (0.000-0.056) ng/mL C-Reactive Protein 6.20 H (0.00-0.90) mg/dL B-Natriuretic Peptide (<100) PG/ML Total Protein 7.9 (6.4-8.2) g/dL Albumin 3.1 L (3.4-5.0) g/dL Globulin 4.8 H (2.6-4.0) g/dL Albumin/Globulin Ratio 0.7 L (0.9-1.6) Lipase 68 L (73-393) U/L Urine Color Urine Appearance Urine pH (5.0-8.0) Ur Specific [place] (1.001-1.035) Urine Protein (NEGATIVE) mg/dL Urine Glucose (UA) (NEGATIVE) mg/dL Urine Ketones (NEGATIVE) mg/dL Urine Occult Blood (NEGATIVE) Urine Nitrite (NEGATIVE) Urine Bilirubin (NEGATIVE) Urine Ictotest Urine Urobilinogen (<2.0) EU/dL Ur Leukocyte Esterase (NEGATIVE) Urine RBC (0-2/HPF) Urine WBC (0-5/HPF) Ur Epithelial Cells (NONE-FEW) Urine Bacteria (NEGATIVE) Urine Mucus (NONE-MOD) Urinalysis Comment SARS CoV-2 RNA Rapid SARAH (NEGATIVE) 01/10/20 01/10/20 01/11/20 Range/Units 21:50 22:15 01:20 WBC (4.0-11.0) K/uL RBC (4.50-5.90) M/uL Hgb (13.0-17.0) g/dL Hct (38.0-50.0) % MCV (80.0-98.0) fL MCH (27.0-32.0) pg MCHC (31.0-37.0) g/dL RDW Std Deviation (28.0-62.0) fl RDW Coeff of [place] (11.0-15.0) % Plt Count (150-400) K/uL MPV (7.40-12.00) fL Neut % (Auto) (48.0-80.0) % Lymph % (Auto) (16.0-40.0) % [place] % (Auto) (0.0-15.0) % Eos % (Auto) (0.0-7.0) % Baso % (Auto) (0.0-1.5) % Neut # (Auto) (1.4-5.7) K/uL Lymph # (Auto) (0.6-2.4) K/uL [place] # (Auto) (0.0-0.8) K/uL Eos # (Auto) (0.0-0.7) K/uL Baso # (Auto) (0.0-0.1) K/uL Nucleated RBC % /100WBC Nucleated RBCs # K/uL Lactate (0.20-2.00) mmol/L Sodium (136-148) mmol/L Potassium (3.5-5.1) mmol/L Chloride (98-107) mmol/L Carbon Dioxide (21.0-32.0) mmol/L BUN (7.0-18.0) mg/dL Creatinine (0.8-1.3) mg/dL Est Cr Clr Drug Dosing Estimated GFR (MDRD) ml/min Glucose (74-106) mg/dL Calcium (8.5-10.1) mg/dL Magnesium (1.8-2.4) mg/dL Total Bilirubin (0.2-1.0) mg/dL AST (15-37) IU/L ALT (14-63) IU/L Alkaline Phosphatase (46-116) U/L Troponin I (0.000-0.056) ng/mL C-Reactive Protein (0.00-0.90) mg/dL B-Natriuretic Peptide 408 H (<100) PG/ML Total Protein (6.4-8.2) g/dL Albumin (3.4-5.0) g/dL Globulin (2.6-4.0) g/dL Albumin/Globulin Ratio (0.9-1.6) Lipase (73-393) U/L Urine Color YELLOW Urine Appearance CLOUDY Urine pH 8.0 (5.0-8.0) Ur Specific [place] 1.020 (1.001-1.035) Urine Protein 100 H (NEGATIVE) mg/dL Urine Glucose (UA) NEGATIVE (NEGATIVE) mg/dL Urine Ketones NEGATIVE (NEGATIVE) mg/dL Urine Occult Blood LARGE H (NEGATIVE) Urine Nitrite POSITIVE H (NEGATIVE) Urine Bilirubin SMALL H (NEGATIVE) Urine Ictotest NEGATIVE Urine Urobilinogen 1.0 (<2.0) EU/dL Ur Leukocyte Esterase LARGE H (NEGATIVE) Urine RBC 8-10 (0-2/HPF) Urine WBC 12-15 (0-5/HPF) Ur Epithelial Cells OCCASIONAL (NONE-FEW) Urine Bacteria 1+ H (NEGATIVE) Urine Mucus LIGHT (NONE-MOD) Urinalysis Comment SARS CoV-2 RNA Rapid SARAH NEGATIVE (NEGATIVE) Meds: Medications Generic Name Dose Route Start Last Admin Trade Name Zbigniew PRN Reason Stop Dose Admin Sodium Chloride 1,000 mls @ 125 mls/hr 01/10/20 23:45 01/11/20 01:40 Normal Saline IV 999 mls/hr ASDIRECTED MARIANNA Infusion Ceftriaxone Sodium/Dextrose 1 50 mls @ 100 mls/hr 01/11/20 01:40 gm/ Premix IV 01/11/20 02:09 ONETIME ONE Sodium Chloride 10 ml 01/10/20 22:00 Saline Flush FLUSH ASDIRECTED PRN Keep Vein Open Sodium Chloride 2.5 ml 01/10/20 22:00 Saline Flush FLUSH ASDIRECTED PRN Keep Vein Open Discontinued Medications Generic Name Dose Route Start Last Admin Trade Name Zbigniew PRN Reason Stop Dose Admin Sodium Chloride 1,000 mls @ 999 mls/hr 01/10/20 22:00 01/10/20 22:18 Normal Saline IV 01/10/20 23:00 999 mls/hr .Bolus ONE Administration Sodium Chloride 500 mls @ 999 mls/hr 01/11/20 01:17 01/11/20 01:40 Normal Saline IV 01/11/20 01:47 Not Given .BOLUS ONE - Re-Assessments/Exams Free Text/Narrative Re-Assessment/Exam: 01/10/20 22:14 Will get labs, EKG, CXR, COVID swab, UA and dispo accordingly. Will give 1-L IVFB in setting of hypotension to 90s/50s. 01/11/20 01:41 Labs with evidence of UTI. Will admit for UTI 01/11/20 01:52 Dr. Oneill agrees to admit to her service Departure - Departure Time of Disposition: 01:42 Disposition: Admitted As Inpatient 68 Condition: Fair Clinical Impression: UTI (urinary tract infection) Qualifiers: Urinary tract infection type: acute cystitis Hematuria presence: without hematuria Qualified Code(s): N30.00 - Acute cystitis without hematuria - Discharge Information Referrals: PCP,None [Primary Care Provider] - Sepsis Event Note (ED) - Evaluation Sepsis Screening Result: No Definite Risk - Focused Exam Vital Signs: Vital Signs Temp Pulse Resp BP Pulse Ox 01/11/20 01:23 100/58 L 01/11/20 00:00 78 20 96/51 L 95 01/10/20 23:00 73 20 95/51 L 94 L 01/10/20 21:49 96.7 F L 79 22 H 95/54 L 91 L - My Orders Last 24 Hours: My Active Orders 01/10/20 22:00 Cardiac Monitoring [RC] . DIRECTED EKG Documentation Completion [RC] STAT Pulse Oximetry [RC] ASDIRECTED CORONAVIRUS COVID-19 PCR PHL Stat Sodium Chloride 0.9% [Saline Flush] 10 ml FLUSH ASDIRECTED PRN Sodium Chloride 0.9% [Saline Flush] 2.5 ml FLUSH ASDIRECTED PRN Saline Lock Insert [OM.PC] Stat 01/10/20 22:02 Blood Culture x2 Reflex Set [OM.PC] Stat 01/10/20 22:15 CULTURE BLOOD [BC] Stat 01/10/20 22:24 CULTURE BLOOD [BC] Stat 01/10/20 23:45 Sodium Chloride 0.9% [Normal Saline] 1,000 ml IV ASDIRECTED 01/11/20 00:11 Urinary Catheter Assessment [RC] ASDIRECTED 01/11/20 00:15 Insert Ramirez Catheter [Insert Urinary Catheter] [OM.PC] Q24H 01/11/20 01:40 cefTRIAXone [Rocephin in Dextrose,Iso-Osm 1 GM/50 ML] 1 gm Premix Bag 1 bag IV ONETIME 01/11/20 01:50 LACTATE WITH REFLEX [BG] Stat 01/11/20 01:51 Patient Status [ADT] Routine - Assessment/Plan Last 24 Hours: My Active Orders 01/10/20 22:00 Cardiac Monitoring [RC] . DIRECTED EKG Documentation Completion [RC] STAT Pulse Oximetry [RC] ASDIRECTED CORONAVIRUS COVID-19 PCR PHL Stat Sodium Chloride 0.9% [Saline Flush] 10 ml FLUSH ASDIRECTED PRN Sodium Chloride 0.9% [Saline Flush] 2.5 ml FLUSH ASDIRECTED PRN Saline Lock Insert [OM.PC] Stat 01/10/20 22:02 Blood Culture x2 Reflex Set [OM.PC] Stat 01/10/20 22:15 CULTURE BLOOD [BC] Stat 01/10/20 22:24 CULTURE BLOOD [BC] Stat 01/10/20 23:45 Sodium Chloride 0.9% [Normal Saline] 1,000 ml IV ASDIRECTED 01/11/20 00:11 Urinary Catheter Assessment [RC] ASDIRECTED 01/11/20 00:15 Insert Ramirez Catheter [Insert Urinary Catheter] [OM.PC] Q24H 01/11/20 01:40 cefTRIAXone [Rocephin in Dextrose,Iso-Osm 1 GM/50 ML] 1 gm Premix Bag 1 bag IV ONETIME 01/11/20 01:50 LACTATE WITH REFLEX [BG] Stat 01/11/20 01:51 Patient Status [ADT] Routine
--- NOTE | 2020-01-10 22:37 | CR ---
Chest: Portable view of the chest was obtained. Comparison: Previous chest x-ray of 09/13/19. Heart is enlarged with prominence of the left heart margin. This is a stable finding from previous study. Sternotomy wires are noted. Central lung markings are increased which are similar to prior exam and most likely are chronic. Increased density above the left hemidiaphragm which may represent atelectasis or small area of pneumonia. Minimal atelectasis likely present within the right retrocardiac region. Surgical clips are seen within the right neck. Impression: 1. Increased density adjacent to the left hemidiaphragm either due to atelectasis or small area of pneumonia if patient has infectious symptoms. 2. Slightly increased lung markings possibly due to chronic pulmonary vascular congestion. 3. Mild right retrocardiac atelectasis. 4. Stable cardiomegaly and prior sternotomy. Diagnostic code #3 This report was dictated in MDT
[2020-01-10 22:51] LABS: BLOOD UREA NITROGEN,BUN 41 mg/dL (7.0-18.0); CARBON DIOXIDE,CO2 30.6 mmol/L (21.0-32.0); CHLORIDE,CL 101 mmol/L (98-107); GLUCOSE RANDOM 159 mg/dL (74-106); LIPASE 68 U/L (73-393); POTASSIUM,K 3.6 mmol/L (3.5-5.1); SODIUM,NA 141 mmol/L (136-148)
[2020-01-10] MEDS ORDERED: Sodium Chloride 0.9% 1,000 ML IV SCH (23:45)
[2020-01-11] MEDS ORDERED: Sodium Chloride 0.9% 500 ML IV ONE (01:17)
[2020-01-11] MEDS ORDERED: cefTRIAXone 1 GM in Premix Bag 1 BAG IV ONE (01:40)
[2020-01-11] MEDS ORDERED: Albuterol/Ipratropium 3.0-0.5 MG/3 ML Neb Soln NEB PRN (02:22)
[2020-01-11] MEDS ORDERED: Azithromycin 500 MG in Sodium Chloride 0.9% 250 ML IV SCH (02:30)
[2020-01-11] MEDS: Sodium Chloride 0.9% 1,000 ML IV SCH ×2 (03:19→13:17)
[2020-01-11] MEDS: Acetaminophen 500 MG Tab PO PRN ×2 (06:06→09:04)
[2020-01-11 07:28] LABS: BLOOD UREA NITROGEN,BUN 40 mg/dL (7.0-18.0); CARBON DIOXIDE,CO2 31.6 mmol/L (21.0-32.0); CHLORIDE,CL 103 mmol/L (98-107); GLUCOSE RANDOM 108 mg/dL (74-106); POTASSIUM,K 3.8 mmol/L (3.5-5.1); SODIUM,NA 142 mmol/L (136-148)
[2020-01-11] MEDS: cefTRIAXone 1 GM in Premix Bag 1 BAG IV SCH (09:04)
[2020-01-11] MEDS ORDERED: Gabapentin 300 MG Cap PO SCH (14:00)
--- NOTE | 2020-01-11 14:32 | US ---
Limited abdominal ultrasound: Multiple real-time images of the upper right abdomen were obtained. Comparison: Prior CT abdomen and pelvis exam of 09/15/19. Liver is slightly echogenic likely relating to mild fatty infiltration. Gallbladder is not well distended which causes some pseudo-gallbladder wall thickening. No shadowing gallstones are seen. No biliary duct dilatation is seen. Right kidney shows no hydronephrosis or mass. Right kidney has a length of 12.5 cm. Inferior vena cava is patent. Pancreas and aorta are not well seen due to bowel gas. Small amount of ascites seen within the abdomen. Impression: 1. Small amount of ascites. 2. Mild fatty infiltration within the liver. 3. No other abnormality is appreciated as described above. Diagnostic code #3 This report was dictated in MDT
--- NOTE | 2020-01-11 14:50 | PCM.HP.2 ---
<Jameson Robert - Last Filed: 01/11/20 16:31> H&P History of Present Illness - General Date of Service: 01/11/20 Admit Problem/Dx: Admission Diagnosis/Problem Admission Diagnosis/Problem UTI, Urinary tract infectious disease - History of Present Illness Initial Comments - Free Text/Narative: 84 year old male patient who resides at [facility], admitted for UTI, UA positive for Nitrite and Leukocyte esterase. Patient may also have pneumonia based on c-xray findings. Patient has a PMH of Diabetes, CHF, HTN, CAD, PVD, WAQAR on CPAP, A-fib, Stasis dermatitis chronic LE bilaterally. Patients caregiver states that the patient uses oxygen at [facility] as needed but did not require oxygen before residing there. Patient presented to the ED due to confusion, and weakness. On admission patient states that his urine was a darker color than usual. Patient denies SOB, chest pain, nausea or vomiting. He does state fatigue and general weakness. - Related Data Allergies/Adverse Reactions: Allergies Allergy/AdvReac Type Severity Reaction Status Date / Time No Known Allergies Allergy Verified 01/11/20 03:09 Home Medications: Home Meds Finasteride [Proscar] 5 mg PO DAILY 12/27/13 [History] Glucosam/Chond/Collagen/Hyalur [Glucosamine Chondroitin] 1 tab PO DAILY 12/27/13 [History] Lutein 10 mg PO DAILY 12/27/13 [History] Garlic 1 tab PO DAILY 08/07/19 [History] Loratadine 10 mg PO DAILY 08/07/19 [History] Potassium Chloride [Klor-Con 10] 10 meq PO TID 08/07/19 [History] Gabapentin [Neurontin] 300 mg PO TID 09/13/19 [History] Metoprolol Tartrate 125 mg PO BID 09/13/19 [History] Mineral Oil 30 ml PO DAILY PRN 09/13/19 [History] Acetaminophen [Tylenol] 650 mg PO Q4H PRN 09/14/19 [History] Allopurinol [Zyloprim] 300 mg PO DAILY 09/14/19 [History] Naproxen Sodium [Aleve] 220 mg PO Q12H PRN 09/14/19 [History] Ammonium Lactate [Lac-Hydrin 12% Crm] 1 applic TOP Q12H PRN MDD Dry Skin 09/19/19 [History] Apixaban [Eliquis] 5 mg PO BID 09/19/19 [History] Menthol [Biofreeze] 1 applic TP ASDIRECTED PRN 09/19/19 [History] Simvastatin 40 mg PO BEDTIME 09/19/19 [History] Tamsulosin HCl 0.8 mg PO DAILY 09/19/19 [History] metFORMIN [Glucophage] 500 mg PO BIDMEALS 7 Days #14 tab 09/21/19 [Rx] Ascorbic Acid [Vitamin C] 500 mg PO TID 01/10/20 [History] Carbamide Peroxide [Debrox] 15 ml OT Q12HR 01/10/20 [History] Finasteride 5 mg PO DAILY 01/10/20 [History] Furosemide 80 mg PO DAILY 01/10/20 [History] metOLazone [Metolazone] 2.5 mg PO MOWEFR 01/10/20 [History] Melatonin 5 mg PO BEDTIME 01/11/20 [History] Past Medical History HEENT History: Reports: Allergic Rhinitis, Hard of Hearing Other HEENT History: has upper removable partial denture and bilateral hearing aides, dysphagia. dentures are at home. hearing aids at [facility] Cardiovascular History: Reports: Afib, Bypass, CAD, Heart Failure, High Cholesterol, Hypertension, PVD, Other (See Below) Other Cardiovascular History: venous insufficiency, occulsion and stenosis of right carotid artery Respiratory History: Reports: Sleep Apnea, Other (See Below) Other Respiratory History: hx of hypoxemia Gastrointestinal History: Reports: Colon Polyp, Diverticulosis, Other (See Below) Other Gastrointestinal History: abdominal hernia unspecified Genitourinary History: Reports: BPH, Diabetic Nephropathy, Urinary Incontinence Musculoskeletal History: Reports: Back Pain, Chronic, Osteoarthritis, Other (See Below) Other Musculoskeletal History: muscle weakness Neurological History: Reports: None Psychiatric History: Reports: None Endocrine/Metabolic History: Reports: Diabetes, Type II, Obesity/BMI 30+ Hematologic History: Reports: None Immunologic History: Reports: None Oncologic (Cancer) History: Reports: None Dermatologic History: Reports: Cellulitis, Other (See Below) Other Dermatologic History: edmea - Infectious Disease History Infectious Disease History: Reports: Chicken Pox, Measles, Mumps - Past Surgical History Head Surgeries/Procedures: Reports: None Cardiovascular Surgical History: Reports: Carotid Endarterectomy, Coronary A rtery Bypass Respiratory Surgical History: Reports: None GI Surgical History: Reports: Appendectomy, Colonoscopy, Hernia, Abdominal Male Surgical History: Reports: None Endocrine Surgical History: Reports: None Neurological Surgical History: Reports: None Musculoskeletal Surgical History: Reports: Knee Replacement Other Musculoskeletal Surgeries/Procedures:: LKR Oncologic Surgical History: Reports: None Dermatological Surgical History: Reports: None Social & Family History - Family History Family Medical History: Noncontributory - Tobacco Use Smoking Status *Q: Former Smoker Used Tobacco, but Quit: Yes Month/Year Tobacco Last Used: 1979 - Caffeine Use Caffeine Use: Reports: Coffee Caffeine Use Comment: 3 cups of coffee day - Recreational Drug Use Recreational Drug Use: No - Living Situation & Occupation Living situation: Reports: Single Occupation: Retired H&P Review of Systems - Review of Systems: Review Of Systems: See Below General: Reports: Weakness, Fatigue. Denies: Fever, Chills Pulmonary: Denies: Shortness of Breath, Wheezing, Pleuritic Chest Pain Cardiovascular: Reports: Orthopnea, Edema. Denies: Chest Pain Gastrointestinal: Denies: Abdominal Pain, Nausea, Vomiting Genitourinary: Denies: Dysuria, Frequency, Burning Musculoskeletal: Denies: Back Pain Exam - Exam Exam: See Below - Vital Signs Vital Signs: Last Vital Signs Temp 97.2 F 01/11/20 12:00 Pulse 96 01/11/20 12:00 Resp 20 01/11/20 12:00 BP 104/57 L 01/11/20 12:00 Pulse Ox 97 01/11/20 12:00 - Exam General: Alert HEENT: EOMI, Hearing Intact, Mucosa Moist & [place] Lungs: Clear to Auscultation, Normal Respiratory Effort Cardiovascular: Regular Rate, Irregular Rhythm GI/Abdominal Exam: Soft, Non-Tender, Other (firm, obese abdomen). No: Guarding Back Exam: No: CVA Tenderness (L), CVA Tenderness (R) Extremities: Pedal Edema Skin: Other (stasis dermatisis bilateraly, LE) Neuro Extensive - Mental Status: Alert - Patient Data Lab Results Last 24 hrs: Laboratory Results - last 24 hr 01/10/20 01/10/20 01/10/20 Range/Units 21:50 21:50 21:50 WBC 10.25 (4.0-11.0) K/uL RBC 4.15 L (4.50-5.90) M/uL Hgb 11.1 L (13.0-17.0) g/dL Hct 36.7 L (38.0-50.0) % MCV 88.4 (80.0-98.0) fL MCH 26.7 L (27.0-32.0) pg MCHC 30.2 L (31.0-37.0) g/dL RDW Std Deviation 55.6 (28.0-62.0) fl RDW Coeff of Yanick 17 H (11.0-15.0) % Plt Count 140 L (150-400) K/uL MPV 9.50 (7.40-12.00) fL Neut % (Auto) 88.7 H (48.0-80.0) % Lymph % (Auto) 4.6 L (16.0-40.0) % [place] % (Auto) 6.3 (0.0-15.0) % Eos % (Auto) 0.3 (0.0-7.0) % Baso % (Auto) 0.1 (0.0-1.5) % Neut # (Auto) 9.1 H (1.4-5.7) K/uL Lymph # (Auto) 0.5 L (0.6-2.4) K/uL [place] # (Auto) 0.7 (0.0-0.8) K/uL Eos # (Auto) 0.0 (0.0-0.7) K/uL Baso # (Auto) 0.0 (0.0-0.1) K/uL Nucleated RBC % 0.0 /100WBC Nucleated RBCs # 0 K/uL ABG pH (7.35-7.45) ABG pCO2 (35-45) mmHG ABG pO2 (75-100) mmHG ABG HCO3 (22-26) mEq/L ABG Total CO2 ABG Base Excess (-2.0-2.0) Lactate 2.6 H* (0.20-2.00) mmol/L Sodium 141 (136-148) mmol/L Potassium 3.6 (3.5-5.1) mmol/L Chloride 101 (98-107) mmol/L Carbon Dioxide 30.6 (21.0-32.0) mmol/L BUN 41 H (7.0-18.0) mg/dL Creatinine 1.6 H (0.8-1.3) mg/dL Est Cr Clr Drug Dosing TNP Estimated GFR (MDRD) 41.6 ml/min Glucose 159 H (74-106) mg/dL Calcium 8.8 (8.5-10.1) mg/dL Phosphorus (2.6-4.7) mg/dL Magnesium 2.0 (1.8-2.4) mg/dL Total Bilirubin 0.6 (0.2-1.0) mg/dL AST 15 (15-37) IU/L ALT 13 L (14-63) IU/L Alkaline Phosphatase 99 (46-116) U/L Troponin I < 0.050 (0.000-0.056) ng/mL C-Reactive Protein 6.20 H (0.00-0.90) mg/dL B-Natriuretic Peptide (<100) PG/ML Total Protein 7.9 (6.4-8.2) g/dL Albumin 3.1 L (3.4-5.0) g/dL Globulin 4.8 H (2.6-4.0) g/dL Albumin/Globulin Ratio 0.7 L (0.9-1.6) Triglycerides (0-200) mg/dL Cholesterol (50-200) mg/dL LDL Cholesterol, Calc (60-180) mg/dL VLDL Cholesterol (5-55) mg/dL HDL Cholesterol (40-60) mg/dL Cholesterol/HDL Ratio (3.3-6.0) Lipase 68 L (73-393) U/L Urine Color Urine Appearance Urine pH (5.0-8.0) Ur Specific [place] (1.001-1.035) Urine Protein (NEGATIVE) mg/dL Urine Glucose (UA) (NEGATIVE) mg/dL Urine Ketones (NEGATIVE) mg/dL Urine Occult Blood (NEGATIVE) Urine Nitrite (NEGATIVE) Urine Bilirubin (NEGATIVE) Urine Ictotest Urine Urobilinogen (<2.0) EU/dL Ur Leukocyte Esterase (NEGATIVE) Urine RBC (0-2/HPF) Urine WBC (0-5/HPF) Ur Epithelial Cells (NONE-FEW) Urine Bacteria (NEGATIVE) Urine Mucus (NONE-MOD) Urinalysis Comment SARS CoV-2 RNA Rapid SARAH (NEGATIVE) 01/10/20 01/10/20 01/11/20 Range/Units 21:50 22:15 01:20 WBC (4.0-11.0) K/uL RBC (4.50-5.90) M/uL Hgb (13.0-17.0) g/dL Hct (38.0-50.0) % MCV (80.0-98.0) fL MCH (27.0-32.0) pg MCHC (31.0-37.0) g/dL RDW Std Deviation (28.0-62.0) fl RDW Coeff of Yanick (11.0-15.0) % Plt Count (150-400) K/uL MPV (7.40-12.00) fL Neut % (Auto) (48.0-80.0) % Lymph % (Auto) (16.0-40.0) % [place] % (Auto) (0.0-15.0) % Eos % (Auto) (0.0-7.0) % Baso % (Auto) (0.0-1.5) % Neut # (Auto) (1.4-5.7) K/uL Lymph # (Auto) (0.6-2.4) K/uL [place] # (Auto) (0.0-0.8) K/uL Eos # (Auto) (0.0-0.7) K/uL Baso # (Auto) (0.0-0.1) K/uL Nucleated RBC % /100WBC Nucleated RBCs # K/uL ABG pH (7.35-7.45) ABG pCO2 (35-45) mmHG ABG pO2 (75-100) mmHG ABG HCO3 (22-26) mEq/L ABG Total CO2 ABG Base Excess (-2.0-2.0) Lactate (0.20-2.00) mmol/L Sodium (136-148) mmol/L Potassium (3.5-5.1) mmol/L Chloride (98-107) mmol/L Carbon Dioxide (21.0-32.0) mmol/L BUN (7.0-18.0) mg/dL Creatinine (0.8-1.3) mg/dL Est Cr Clr Drug Dosing Estimated GFR (MDRD) ml/min Glucose (74-106) mg/dL Calcium (8.5-10.1) mg/dL Phosphorus (2.6-4.7) mg/dL Magnesium (1.8-2.4) mg/dL Total Bilirubin (0.2-1.0) mg/dL AST (15-37) IU/L ALT (14-63) IU/L Alkaline Phosphatase (46-116) U/L Troponin I (0.000-0.056) ng/mL C-Reactive Protein (0.00-0.90) mg/dL B-Natriuretic Peptide 408 H (<100) PG/ML Total Protein (6.4-8.2) g/dL Albumin (3.4-5.0) g/dL Globulin (2.6-4.0) g/dL Albumin/Globulin Ratio (0.9-1.6) Triglycerides (0-200) mg/dL Cholesterol (50-200) mg/dL LDL Cholesterol, Calc (60-180) mg/dL VLDL Cholesterol (5-55) mg/dL HDL Cholesterol (40-60) mg/dL Cholesterol/HDL Ratio (3.3-6.0) Lipase (73-393) U/L Urine Color YELLOW Urine Appearance CLOUDY Urine pH 8.0 (5.0-8.0) Ur Specific [place] 1.020 (1.001-1.035) Urine Protein 100 H (NEGATIVE) mg/dL Urine Glucose (UA) NEGATIVE (NEGATIVE) mg/dL Urine Ketones NEGATIVE (NEGATIVE) mg/dL Urine Occult Blood LARGE H (NEGATIVE) Urine Nitrite POSITIVE H (NEGATIVE) Urine Bilirubin SMALL H (NEGATIVE) Urine Ictotest NEGATIVE Urine Urobilinogen 1.0 (<2.0) EU/dL Ur Leukocyte Esterase LARGE H (NEGATIVE) Urine RBC 8-10 (0-2/HPF) Urine WBC 12-15 (0-5/HPF) Ur Epithelial Cells OCCASIONAL (NONE-FEW) Urine Bacteria 1+ H (NEGATIVE) Urine Mucus LIGHT (NONE-MOD) Urinalysis Comment SARS CoV-2 RNA Rapid SARAH NEGATIVE (NEGATIVE) 01/11/20 01/11/20 01/11/20 Range/Units 01:55 06:30 06:30 WBC 5.89 (4.0-11.0) K/uL RBC 3.83 L (4.50-5.90) M/uL Hgb 10.1 L (13.0-17.0) g/dL Hct 34.2 L (38.0-50.0) % MCV 89.3 (80.0-98.0) fL MCH 26.4 L (27.0-32.0) pg MCHC 29.5 L (31.0-37.0) g/dL RDW Std Deviation 57.0 (28.0-62.0) fl RDW Coeff of Yanick 17 H (11.0-15.0) % Plt Count 118 L (150-400) K/uL MPV 9.70 (7.40-12.00) fL Neut % (Auto) 78.6 (48.0-80.0) % Lymph % (Auto) 11.5 L (16.0-40.0) % [place] % (Auto) 8.1 (0.0-15.0) % Eos % (Auto) 1.5 (0.0-7.0) % Baso % (Auto) 0.3 (0.0-1.5) % Neut # (Auto) 4.6 (1.4-5.7) K/uL Lymph # (Auto) 0.7 (0.6-2.4) K/uL [place] # (Auto) 0.5 (0.0-0.8) K/uL Eos # (Auto) 0.1 (0.0-0.7) K/uL Baso # (Auto) 0.0 (0.0-0.1) K/uL Nucleated RBC % 0.0 /100WBC Nucleated RBCs # 0 K/uL ABG pH (7.35-7.45) ABG pCO2 (35-45) mmHG ABG pO2 (75-100) mmHG ABG HCO3 (22-26) mEq/L ABG Total CO2 ABG Base Excess (-2.0-2.0) Lactate 1.2 (0.20-2.00) mmol/L Sodium 142 (136-148) mmol/L Potassium 3.8 (3.5-5.1) mmol/L Chloride 103 (98-107) mmol/L Carbon Dioxide 31.6 (21.0-32.0) mmol/L BUN 40 H (7.0-18.0) mg/dL Creatinine 1.6 H (0.8-1.3) mg/dL Est Cr Clr Drug Dosing TNP Estimated GFR (MDRD) 41.6 ml/min Glucose 108 H (74-106) mg/dL Calcium 8.5 (8.5-10.1) mg/dL Phosphorus 4.3 (2.6-4.7) mg/dL Magnesium 2.0 (1.8-2.4) mg/dL Total Bilirubin (0.2-1.0) mg/dL AST (15-37) IU/L ALT (14-63) IU/L Alkaline Phosphatase (46-116) U/L Troponin I (0.000-0.056) ng/mL C-Reactive Protein (0.00-0.90) mg/dL B-Natriuretic Peptide (<100) PG/ML Total Protein (6.4-8.2) g/dL Albumin (3.4-5.0) g/dL Globulin (2.6-4.0) g/dL Albumin/Globulin Ratio (0.9-1.6) Triglycerides (0-200) mg/dL Cholesterol (50-200) mg/dL LDL Cholesterol, Calc (60-180) mg/dL VLDL Cholesterol (5-55) mg/dL HDL Cholesterol (40-60) mg/dL Cholesterol/HDL Ratio (3.3-6.0) Lipase (73-393) U/L Urine Color Urine Appearance Urine pH (5.0-8.0) Ur Specific [place] (1.001-1.035) Urine Protein (NEGATIVE) mg/dL Urine Glucose (UA) (NEGATIVE) mg/dL Urine Ketones (NEGATIVE) mg/dL Urine Occult Blood (NEGATIVE) Urine Nitrite (NEGATIVE) Urine Bilirubin (NEGATIVE) Urine Ictotest Urine Urobilinogen (<2.0) EU/dL Ur Leukocyte Esterase (NEGATIVE) Urine RBC (0-2/HPF) Urine WBC (0-5/HPF) Ur Epithelial Cells (NONE-FEW) Urine Bacteria (NEGATIVE) Urine Mucus (NONE-MOD) Urinalysis Comment SARS CoV-2 RNA Rapid SARAH (NEGATIVE) 01/11/20 01/11/20 Range/Units 06:30 11:16 WBC (4.0-11.0) K/uL RBC (4.50-5.90) M/uL Hgb (13.0-17.0) g/dL Hct (38.0-50.0) % MCV (80.0-98.0) fL MCH (27.0-32.0) pg MCHC (31.0-37.0) g/dL RDW Std Deviation (28.0-62.0) fl RDW Coeff of Yanick (11.0-15.0) % Plt Count (150-400) K/uL MPV (7.40-12.00) fL Neut % (Auto) (48.0-80.0) % Lymph % (Auto) (16.0-40.0) % [place] % (Auto) (0.0-15.0) % Eos % (Auto) (0.0-7.0) % Baso % (Auto) (0.0-1.5) % Neut # (Auto) (1.4-5.7) K/uL Lymph # (Auto) (0.6-2.4) K/uL [place] # (Auto) (0.0-0.8) K/uL Eos # (Auto) (0.0-0.7) K/uL Baso # (Auto) (0.0-0.1) K/uL Nucleated RBC % /100WBC Nucleated RBCs # K/uL ABG pH 7.399 (7.35-7.45) ABG pCO2 50 H (35-45) mmHG ABG pO2 86 (75-100) mmHG ABG HCO3 31 H (22-26) mEq/L ABG Total CO2 29.0 ABG Base Excess 5.2 H (-2.0-2.0) Lactate (0.20-2.00) mmol/L Sodium (136-148) mmol/L Potassium (3.5-5.1) mmol/L Chloride (98-107) mmol/L Carbon Dioxide (21.0-32.0) mmol/L BUN (7.0-18.0) mg/dL Creatinine (0.8-1.3) mg/dL Est Cr Clr Drug Dosing Estimated GFR (MDRD) ml/min Glucose (74-106) mg/dL Calcium (8.5-10.1) mg/dL Phosphorus (2.6-4.7) mg/dL Magnesium (1.8-2.4) mg/dL Total Bilirubin (0.2-1.0) mg/dL AST (15-37) IU/L ALT (14-63) IU/L Alkaline Phosphatase (46-116) U/L Troponin I (0.000-0.056) ng/mL C-Reactive Protein (0.00-0.90) mg/dL B-Natriuretic Peptide (<100) PG/ML Total Protein (6.4-8.2) g/dL Albumin (3.4-5.0) g/dL Globulin (2.6-4.0) g/dL Albumin/Globulin Ratio (0.9-1.6) Triglycerides 39 (0-200) mg/dL Cholesterol 53 (50-200) mg/dL LDL Cholesterol, Calc 2 L (60-180) mg/dL VLDL Cholesterol 7 (5-55) mg/dL HDL Cholesterol 43 (40-60) mg/dL Cholesterol/HDL Ratio 1.2 L (3.3-6.0) Lipase (73-393) U/L Urine Color Urine Appearance Urine pH (5.0-8.0) Ur Specific [place] (1.001-1.035) Urine Protein (NEGATIVE) mg/dL Urine Glucose (UA) (NEGATIVE) mg/dL Urine Ketones (NEGATIVE) mg/dL Urine Occult Blood (NEGATIVE) Urine Nitrite (NEGATIVE) Urine Bilirubin (NEGATIVE) Urine Ictotest Urine Urobilinogen (<2.0) EU/dL Ur Leukocyte Esterase (NEGATIVE) Urine RBC (0-2/HPF) Urine WBC (0-5/HPF) Ur Epithelial Cells (NONE-FEW) Urine Bacteria (NEGATIVE) Urine Mucus (NONE-MOD) Urinalysis Comment SARS CoV-2 RNA Rapid SARAH (NEGATIVE) Result Diagrams: 01/11/20 06:30 01/11/20 06:30 Sepsis Event Note - Evaluation Sepsis Screening Result: No Definite Risk - Focused Exam Vital Signs: Vital Signs Temp Pulse Resp BP Pulse Ox 01/11/20 12:00 97.2 F 96 20 104/57 L 97 01/11/20 08:00 98.3 F 84 14 112/61 84 L 01/11/20 05:00 97.2 F 78 18 92/61 92 L 01/11/20 03:06 97.3 F 76 20 96/52 L 93 L Problem List Initiated/Reviewed/Updated: Yes Orders Last 24hrs: Active Orders 24 hr Category Date Time Status Patient Status [ADT] Routine ADT 01/11/20 01:51 Active Ambulate [RC] ASDIRECTED Care 01/11/20 02:22 Active Antiembolic Devices [RC] PER UNIT ROUTINE Care 01/11/20 02:23 Active BIPAP [RT BiPAP/CPAP] [RC] ASDIRECTED Care 01/11/20 11:27 Active Cardiac Monitoring [RC] . DIRECTED Care 01/10/20 22:00 Active Insert Ramirez Catheter [Insert Urinary Catheter] [OM.PC] Care 01/11/20 00:15 Ordered Q24H Oxygen Therapy [RC] PRN Care 01/11/20 02:22 Active Pulse Oximetry [RC] ASDIRECTED Care 01/10/20 22:00 Active RT Aerosol Therapy [RC] ASDIRECTED Care 01/11/20 02:24 Active Telemetry Monitoring [Cardiac Monitoring] [RC] Q8H Care 01/11/20 02:28 Active Urinary Catheter Assessment [RC] ASDIRECTED Care 01/11/20 00:11 Active VTE/DVT Education [RC] PER UNIT ROUTINE Care 01/11/20 02:22 Active Vital Signs [RC] Q4H Care 01/11/20 02:22 Active Heart Healthy Diet [DIET] Diet 01/11/20 Breakfast Active Echo Comp wo Cont [US] Urgent Exams 01/11/20 13:50 Ordered BASIC METABOLIC PANEL,BMP [CHEM] AM Lab 01/12/20 05:11 Ordered CBC WITH AUTO DIFF [HEME] AM Lab 01/12/20 05:11 Ordered CORONAVIRUS COVID-19 PCR PHL Stat Lab 01/10/20 22:00 Ordered CULTURE BLOOD [BC] Stat Lab 01/10/20 22:15 Received CULTURE BLOOD [BC] Stat Lab 01/10/20 22:24 Received CULTURE URINE [RM] Routine Lab 01/11/20 10:35 Received Acetaminophen [Tylenol Extra Strength] Med 01/11/20 05:52 Active 500 mg PO Q6H PRN Albuterol/Ipratropium [DuoNeb 3.0-0.5 MG/3 ML] Med 01/11/20 02:22 Active 3 ml NEB Q4HRRT PRN Apixaban [Eliquis] Med 01/11/20 21:00 Active 5 mg PO BID Azithromycin [Zithromax] 500 mg Med 01/11/20 02:30 Active Sodium Chloride 0.9% [Normal Saline (AdvBag)] 250 ml IV ONETIME Finasteride [Proscar] Med 01/11/20 15:00 Active 5 mg PO DAILY Furosemide [Lasix] Med 01/11/20 15:00 Active 80 mg PO DAILY Gabapentin [Neurontin] Med 01/11/20 14:00 Active 300 mg PO TID Insulin Aspart [NovoLOG] Med 01/11/20 17:00 Active See Protocol SUBCUT TIDAC Melatonin Med 01/11/20 21:00 Active 6 mg PO BEDTIME Metoprolol Tartrate [Lopressor] Med 01/11/20 21:00 Active 125 mg PO BID Simvastatin [Zocor] Med 01/11/20 21:00 Active 40 mg PO BEDTIME Sodium Chloride 0.9% [Normal Saline] 1,000 ml Med 01/11/20 02:24 Active IV ASDIRECTED Sodium Chloride 0.9% [Saline Flush] Med 01/10/20 22:00 Active 10 ml FLUSH ASDIRECTED PRN Sodium Chloride 0.9% [Saline Flush] Med 01/10/20 22:00 Active 2.5 ml FLUSH ASDIRECTED PRN cefTRIAXone [Rocephin in Dextrose,Iso-Osm 1 GM/50 ML] 1 Med 01/11/20 09:00 Active gm Premix Bag 1 bag IV Q24H Blood Culture x2 Reflex Set [OM.PC] Stat Ot 01/10/20 22:02 Ordered Saline Lock Insert [OM.PC] Stat Ot 01/10/20 22:00 Ordered Sequential Compression Device [OM.PC] Per Unit Routine Ot 01/11/20 02:22 Ordered Medication Orders Acetaminophen (Tylenol Extra Strength) 500 mg PO Q6H PRN PRN Reason: Pain Last Admin: 01/11/20 09:04 Dose: 500 mg Documented by: [id number] Albuterol/Ipratropium (Duoneb 3.0-0.5 Mg/3 Ml) 3 ml NEB Q4HRRT PRN PRN Reason: Shortness Of Breath/wheezing Apixaban (Eliquis) 5 mg PO BID MARIANNA Finasteride (Proscar) 5 mg PO DAILY MARIANNA Furosemide (Lasix) 80 mg PO DAILY MARIANNA Gabapentin (Neurontin) 300 mg PO TID MARIANNA Sodium Chloride (Normal Saline) 1,000 mls @ 125 mls/hr IV ASDIRECTED MARIANNA Last Admin: 01/11/20 13:17 Dose: 125 mls/hr Documented by: Infusion: 01/11/20 11:19 Dose: 125 mls/hr Documented by: Admin: 01/11/20 03:19 Dose: 125 mls/hr Documented by: TU Ceftriaxone Sodium/Dextrose 1 (gm/ Premix) 50 mls @ 100 mls/hr IV Q24H [facility] Last Admin: 01/11/20 09:04 Dose: 100 mls/hr Documented by: GAIL Azithromycin 500 mg/ Sodium (Chloride) 250 mls @ 250 mls/hr IV ONETIME [facility] Last Admin: 01/11/20 03:24 Dose: 250 mls/hr Documented by: TU Insulin Aspart (Novolog) 0 unit SUBCUT TIDAC MARIANNA; Protocol Melatonin (Melatonin) 6 mg PO BEDTIME MARIANNA Metoprolol Tartrate (Lopressor) 125 mg PO BID MARIANNA Simvastatin (Zocor) 40 mg PO BEDTIME MARIANNA Sodium Chloride (Saline Flush) 10 ml FLUSH ASDIRECTED PRN PRN Reason: Keep Vein Open Sodium Chloride (Saline Flush) 2.5 ml FLUSH ASDIRECTED PRN PRN Reason: Keep Vein Open Assessment/Plan Comment:: UTI: Ceftriaxone Q24hr, Fluids NS 125m/hr Suspected Pneumonia- Azithromycin 500mg Q24, [place], O2 support to [place] 2%sat above 90%. Patient does require some oxygen support at nursing facility but not sure how much. Per daughter oxygen is as needed. HTN, CHF, A-Fib, CAD- Eliquis 5mg Bid, Metoprolol 125mg BID, Lasix 80mg PO daily, Simvastatin 40mg Diabetes- Insulin SS, Diabetic Diet WAQAR- BiPAP at night <Paula Oneill - Last Filed: 01/13/20 13:32> H&P History of Present Illness - General Admit Problem/Dx: Admission Diagnosis/Problem Admission Diagnosis/Problem UTI, Urinary tract infectious disease Exam - Vital Signs Vital Signs: Last Vital Signs Temp 37.0 C 01/13/20 11:56 Pulse 123 H 01/13/20 12:21 Resp 15 01/13/20 11:56 BP 100/60 01/13/20 12:21 Pulse Ox 98 01/13/20 11:56 - Patient Data Lab Results Last 24 hrs: Laboratory Results - last 24 hr 01/10/20 01/12/20 01/12/20 Range/Units 22:00 11:40 15:30 WBC 6.21 (4.0-11.0) K/uL RBC 3.61 L (4.50-5.90) M/uL Hgb 9.6 L (13.0-17.0) g/dL Hct 32.8 L (38.0-50.0) % MCV 90.9 (80.0-98.0) fL MCH 26.6 L (27.0-32.0) pg MCHC 29.3 L (31.0-37.0) g/dL RDW Std Deviation 57.2 (28.0-62.0) fl RDW Coeff of [place] 17 H (11.0-15.0) % Plt Count 123 L (150-400) K/uL MPV 9.20 (7.40-12.00) fL Neut % (Auto) 74.8 (48.0-80.0) % Lymph % (Auto) 14.8 L (16.0-40.0) % [place] % (Auto) 9.2 (0.0-15.0) % Eos % (Auto) 1.0 (0.0-7.0) % Baso % (Auto) 0.2 (0.0-1.5) % Neut # (Auto) 4.7 (1.4-5.7) K/uL Lymph # (Auto) 0.9 (0.6-2.4) K/uL [place] # (Auto) 0.6 (0.0-0.8) K/uL Eos # (Auto) 0.1 (0.0-0.7) K/uL Baso # (Auto) 0.0 (0.0-0.1) K/uL Nucleated RBC % 0.0 /100WBC Nucleated RBCs # 0 K/uL Sodium (136-148) mmol/L Potassium (3.5-5.1) mmol/L Chloride (98-107) mmol/L Carbon Dioxide (21.0-32.0) mmol/L BUN (7.0-18.0) mg/dL Creatinine (0.8-1.3) mg/dL Est Cr Clr Drug Dosing mL/min Estimated GFR (MDRD) ml/min Glucose (74-106) mg/dL POC Glucose (60-110) mg/dL Calcium (8.5-10.1) mg/dL Magnesium (1.8-2.4) mg/dL Total Bilirubin (0.2-1.0) mg/dL AST (15-37) IU/L ALT (14-63) IU/L Alkaline Phosphatase (46-116) U/L Total Protein (6.4-8.2) g/dL Albumin (3.4-5.0) g/dL Globulin (2.6-4.0) g/dL Albumin/Globulin Ratio (0.9-1.6) SARS-CoV-2 (PCR) NOT DETECTED (NOT DETECT) Blood Type A POSITIVE Antibody Screen NEGATIVE 01/12/20 01/12/20 01/13/20 Range/Units 17:08 19:48 06:00 WBC 5.96 5.09 (4.0-11.0) K/uL RBC 3.45 L 3.51 L (4.50-5.90) M/uL Hgb 9.2 L 9.4 L (13.0-17.0) g/dL Hct 31.2 L 31.8 L (38.0-50.0) % MCV 90.4 90.6 (80.0-98.0) fL MCH 26.7 L 26.8 L (27.0-32.0) pg MCHC 29.5 L 29.6 L (31.0-37.0) g/dL RDW Std Deviation 57.2 56.7 (28.0-62.0) fl RDW Coeff of [place] 17 H 17 H (11.0-15.0) % Plt Count 113 L 119 L (150-400) K/uL MPV 8.90 9.70 (7.40-12.00) fL Neut % (Auto) 77.6 71.3 (48.0-80.0) % Lymph % (Auto) 12.8 L 17.7 (16.0-40.0) % [place] % (Auto) 8.1 7.5 (0.0-15.0) % Eos % (Auto) 1.3 3.3 (0.0-7.0) % Baso % (Auto) 0.2 0.2 (0.0-1.5) % Neut # (Auto) 4.6 3.6 (1.4-5.7) K/uL Lymph # (Auto) 0.8 0.9 (0.6-2.4) K/uL [place] # (Auto) 0.5 0.4 (0.0-0.8) K/uL Eos # (Auto) 0.1 0.2 (0.0-0.7) K/uL Baso # (Auto) 0.0 0.0 (0.0-0.1) K/uL Nucleated RBC % 0.0 0.0 /100WBC Nucleated RBCs # 0 0 K/uL Sodium (136-148) mmol/L Potassium (3.5-5.1) mmol/L Chloride (98-107) mmol/L Carbon Dioxide (21.0-32.0) mmol/L BUN (7.0-18.0) mg/dL Creatinine (0.8-1.3) mg/dL Est Cr Clr Drug Dosing mL/min Estimated GFR (MDRD) ml/min Glucose (74-106) mg/dL POC Glucose 110 (60-110) mg/dL Calcium (8.5-10.1) mg/dL Magnesium (1.8-2.4) mg/dL Total Bilirubin (0.2-1.0) mg/dL AST (15-37) IU/L ALT (14-63) IU/L Alkaline Phosphatase (46-116) U/L Total Protein (6.4-8.2) g/dL Albumin (3.4-5.0) g/dL Globulin (2.6-4.0) g/dL Albumin/Globulin Ratio (0.9-1.6) SARS-CoV-2 (PCR) (NOT DETECT) Blood Type Antibody Screen 01/13/20 01/13/20 01/13/20 Range/Units 06:00 07:15 11:55 WBC (4.0-11.0) K/uL RBC (4.50-5.90) M/uL Hgb (13.0-17.0) g/dL Hct (38.0-50.0) % MCV (80.0-98.0) fL MCH (27.0-32.0) pg MCHC (31.0-37.0) g/dL RDW Std Deviation (28.0-62.0) fl RDW Coeff of [place] (11.0-15.0) % Plt Count (150-400) K/uL MPV (7.40-12.00) fL Neut % (Auto) (48.0-80.0) % Lymph % (Auto) (16.0-40.0) % [place] % (Auto) (0.0-15.0) % Eos % (Auto) (0.0-7.0) % Baso % (Auto) (0.0-1.5) % Neut # (Auto) (1.4-5.7) K/uL Lymph # (Auto) (0.6-2.4) K/uL [place] # (Auto) (0.0-0.8) K/uL Eos # (Auto) (0.0-0.7) K/uL Baso # (Auto) (0.0-0.1) K/uL Nucleated RBC % /100WBC Nucleated RBCs # K/uL Sodium 141 (136-148) mmol/L Potassium 3.6 (3.5-5.1) mmol/L Chloride 103 (98-107) mmol/L Carbon Dioxide 33.3 H (21.0-32.0) mmol/L BUN 36 H (7.0-18.0) mg/dL Creatinine 1.5 H (0.8-1.3) mg/dL Est Cr Clr Drug Dosing 44.14 mL/min Estimated GFR (MDRD) 44.8 ml/min Glucose 122 H (74-106) mg/dL POC Glucose 113 H 149 H (60-110) mg/dL Calcium 8.2 L (8.5-10.1) mg/dL Magnesium 2.0 (1.8-2.4) mg/dL Total Bilirubin 0.5 (0.2-1.0) mg/dL AST 16 (15-37) IU/L ALT 12 L (14-63) IU/L Alkaline Phosphatase 77 (46-116) U/L Total Protein 6.6 (6.4-8.2) g/dL Albumin 2.5 L (3.4-5.0) g/dL Globulin 4.1 H (2.6-4.0) g/dL Albumin/Globulin Ratio 0.6 L (0.9-1.6) SARS-CoV-2 (PCR) (NOT DETECT) Blood Type Antibody Screen Result Diagrams: 01/13/20 06:00 01/13/20 06:00 Felipe Results Last 24 hrs: Microbiology 01/12/20 10:32 Aerobic Blood Culture - Preliminary Blood - Venous - Lab Draw NO GROWTH AFTER 1 DAY Anaerobic Blood Culture - Preliminary NO GROWTH AFTER 1 DAY 01/12/20 10:20 Aerobic Blood Culture - Preliminary Blood - Venous NO GROWTH AFTER 1 DAY Anaerobic Blood Culture - Preliminary NO GROWTH AFTER 1 DAY 01/10/20 22:24 Aerobic Blood Culture - Preliminary Blood - Venous - Lab Draw Anaerobic Blood Culture - Preliminary NO GROWTH AFTER 2 DAYS 01/10/20 22:20 Urine Culture - Final Urine, Clean Catch Proteus Mirabilis 01/10/20 22:15 Aerobic Blood Culture - Preliminary Blood - Venous NO GROWTH AFTER 2 DAYS Anaerobic Blood Culture - Preliminary NO GROWTH AFTER 2 DAYS Sepsis Event Note - Focused Exam Vital Signs: Vital Signs Temp Pulse Pulse Resp BP BP Pulse Ox 01/13/20 12:21 123 H 100/60 01/13/20 11:56 37.0 C 99 15 100/60 98 01/13/20 08:09 36.6 C 112 H 14 107/64 90 L 01/13/20 05:00 36.9 C 95 18 116/62 88 L Orders Last 24hrs: Active Orders 24 hr Category Date Time Status Antiembolic Devices [RC] PER UNIT ROUTINE Care 01/12/20 13:03 Active Bladder Irrigation [RC] Q3HR Care 01/12/20 19:33 Active Bladder Scan [RC] PRN Care 01/12/20 19:35 Active Consult to Physical Therapy [PT Evaluation and Cons 01/13/20 09:20 Active Treatment] [CONS] Routine Thickened Liquids [DIET] Diet 01/13/20 Dinner Active CBC WITH AUTO DIFF [HEME] AM Lab 01/14/20 05:11 Ordered CBC WITH AUTO DIFF [HEME] AM Lab 01/15/20 05:11 Ordered COMPREHENSIVE METABOLIC PN,CMP [CHEM] AM Lab 01/14/20 05:11 Ordered COMPREHENSIVE METABOLIC PN,CMP [CHEM] AM Lab 01/15/20 05:11 Ordered VANCOMYCIN TROUGH [CHEM] Routine Lab 01/14/20 00:00 Ordered Azithromycin [Zithromax] 500 mg Med 01/12/20 16:00 Active Sodium Chloride 0.9% [Normal Saline (AdvBag)] 250 ml IV Q24H Furosemide [Lasix] Med 01/13/20 14:00 Active 40 mg PO BIDDIURETIC Metoprolol Tartrate [Lopressor] Med 01/13/20 11:30 Active 125 mg PO Q12H VANCOmycin/Water for INJ (PEG) [VANCOmycin 1.5 GM/300 Med 01/12/20 13:00 Active ML Premix] 1.5 gm Premix Bag 1 bag IV Q12H SCD [Sequential Compression Device] [OM.PC] Routine Oth 01/12/20 13:03 Ordered Medication Orders Acetaminophen (Tylenol Extra Strength) 500 mg PO Q6H PRN PRN Reason: Pain Last Admin: 01/11/20 09:04 Dose: 500 mg Documented by: GAIL Albuterol/Ipratropium (Duoneb 3.0-0.5 Mg/3 Ml) 3 ml NEB Q4HRRT PRN PRN Reason: Shortness Of Breath/wheezing Diltiazem HCl (Diltiazem) 20 mg IVPUSH Q2HR PRN PRN Reason: Tachycardia Last Admin: 01/11/20 23:14 Dose: 20 mg Documented by: TU Furosemide (Lasix) 40 mg PO BIDDIURETIC MARIANNA Piperacillin Sod/Tazobactam (Sod 3.375 gm/ Sodium Chloride) 100 mls @ 200 mls/hr IV Q6H MARIANNA Last Admin: 01/13/20 12:52 Dose: 200 mls/hr Documented by: Infusion: 01/13/20 07:11 Dose: 200 mls/hr Documented by: Admin: 01/13/20 06:41 Dose: 200 mls/hr Documented by: Infusion: 01/13/20 01:02 Dose: 200 mls/hr Documented by: Admin: 01/13/20 00:32 Dose: 200 mls/hr Documented by: Infusion: 01/12/20 18:37 Dose: 200 mls/hr Documented by: Admin: 01/12/20 18:07 Dose: 200 mls/hr Documented by: Infusion: 01/12/20 14:22 Dose: 200 mls/hr Documented by: Admin: 01/12/20 13:52 Dose: 200 mls/hr Documented by: ERNIE Vancomycin HCl 1.5 gm/ Premix 300 mls @ 200 mls/hr IV Q12H [facility] Last Admin: 01/13/20 02:06 Dose: 200 mls/hr Documented by: Infusion: 01/12/20 15:30 Dose: 200 mls/hr Documented by: Admin: 01/12/20 14:00 Dose: 200 mls/hr Documented by: ERNIE Azithromycin 500 mg/ Sodium (Chloride) 250 mls @ 250 mls/hr IV Q24H [facility] Last Admin: 01/12/20 16:05 Dose: 250 mls/hr Documented by: ERNIE Insulin Aspart (Novolog) 0 unit [facility]; Protocol Last Admin: 01/13/20 11:56 Dose: Not Given Documented by: Admin: 01/13/20 08:10 Dose: Not Given Documented by: Admin: 01/12/20 17:42 Dose: Not Given Documented by: Admin: 01/12/20 12:26 Dose: Not Given Documented by: Admin: 01/12/20 08:05 Dose: Not Given Documented by: Admin: 01/11/20 17:49 Dose: Not Given Documented by: [id number] Metoprolol Tartrate (Lopressor) 125 mg PO Q12H [facility] Last Admin: 01/13/20 12:21 Dose: 125 mg Documented by: ERNIE Sodium Chloride (Saline Flush) 10 ml FLUSH ASDIRECTED PRN PRN Reason: Keep Vein Open Sodium Chloride (Saline Flush) 2.5 ml FLUSH ASDIRECTED PRN PRN Reason: Keep Vein Open Vancomycin HCl (Pharmacy To Dose - Vancomycin) 1 dose .XX ASDIRECTED [facility] Assessment/Plan Comment:: I performed a history and physical exam of the patient and discussed management with resident. I have reviewed the residents note and agree with documented findings and plan unless otherwise specified in my note.
[2020-01-11] MEDS: Finasteride 5 MG Tab PO SCH (16:12)
[2020-01-11] MEDS: Gabapentin 300 MG Cap PO SCH ×2 (16:12→21:41)
[2020-01-11] MEDS: Furosemide 80 MG Tab PO SCH (16:12)
[2020-01-11] MEDS: Insulin Aspart 100 Units/ML 3 ML Pen SUBCUT SCH (17:49)
[2020-01-11] MEDS ORDERED: Diltiazem 25 MG/5 ML SDV IVPUSH PRN (20:57)
[2020-01-11] MEDS ORDERED: Simvastatin 40 MG Tab PO SCH (21:00)
[2020-01-11] MEDS ORDERED: Melatonin 3 MG Tab PO SCH (21:00)
[2020-01-11] MEDS: Metoprolol Tartrate 50 MG Tab PO SCH (21:41)
[2020-01-11] MEDS: Apixaban 5 MG Tab PO SCH (21:41)
[2020-01-12] MEDS: Gabapentin 300 MG Cap PO SCH (06:13)
[2020-01-12 06:36] LABS: BLOOD UREA NITROGEN,BUN 44 mg/dL (7.0-18.0); CARBON DIOXIDE,CO2 31.7 mmol/L (21.0-32.0); CHLORIDE,CL 104 mmol/L (98-107); GLUCOSE RANDOM 112 mg/dL (74-106); POTASSIUM,K 3.9 mmol/L (3.5-5.1); SODIUM,NA 142 mmol/L (136-148)
[2020-01-12] MEDS: Insulin Aspart 100 Units/ML 3 ML Pen SUBCUT SCH ×3 (08:05→17:42)
--- NOTE | 2020-01-12 09:40 | CR ---
Chest: Portable view of the chest was obtained. Comparison: Prior chest x-ray of 01/10/20. Increasing density within the left lung base. Blunting or pleural effusion is noted within the right lung base. Heart is enlarged. Previous sternotomy is noted. Impression: 1. Increasing density within the left lung base. Differential includes worsening atelectasis or pneumonia or combination of both. 2. Small right-sided pleural effusion. 3. Cardiomegaly and prior sternotomy. Diagnostic code #3 This report was dictated in MDT
[2020-01-12] MEDS: Metoprolol Tartrate 50 MG Tab PO SCH ×2 (09:43→09:56)
[2020-01-12] MEDS: Furosemide 80 MG Tab PO SCH ×2 (09:46→09:56)
[2020-01-12] MEDS: Apixaban 5 MG Tab PO SCH ×2 (09:47→09:57)
[2020-01-12] MEDS: Finasteride 5 MG Tab PO SCH ×2 (09:47→09:57)
[2020-01-12] MEDS ORDERED: Furosemide 40 MG/4 ML VIAL IVPUSH ONE (09:48)
[2020-01-12] MEDS ORDERED: Piperacillin/Tazobactam 3.375 GM in Sodium Chloride 0.9% 100 ML IV SCH (10:00)
[2020-01-12] MEDS ORDERED: Azithromycin 500 MG Vial IV SCH (10:00)
[2020-01-12] MEDS: Furosemide 40 MG/4 ML VIAL IVPUSH SCH ×2 (11:50→15:05)
[2020-01-12] MEDS: cefTRIAXone 1 GM in Premix Bag 1 BAG IV SCH (11:51)
[2020-01-12] MEDS: Piperacillin/Tazobactam 3.375 GM in Sodium Chloride 0.9% 100 ML IV SCH ×2 (13:52→18:07)
[2020-01-12] MEDS ORDERED: Azithromycin 500 MG in Sodium Chloride 0.9% 250 ML IV SCH (14:00)
[2020-01-12] MEDS: Azithromycin 500 MG in Sodium Chloride 0.9% 250 ML IV SCH (16:05)
--- NOTE | 2020-01-12 16:27 | PCM.PN ---
<Jameson Robert - Last Filed: 01/12/20 16:36> - General Info Date of Service: 01/12/20 Subjective Update: Patient appears to be more lethargic and less alert this morning. He does respond to verbal commands but slowly. Patient states that he feels fine. Per nursing, patient was having difficulty eating this morning as he appeared to be aspirating at times. Chest x ray ordered - Review of Systems General: Denies: Fever, Chills Pulmonary: Reports: Cough. Denies: Shortness of Breath Cardiovascular: Denies: Chest Pain Gastrointestinal: Denies: Abdominal Pain - Patient Data Vitals - Most Recent: Last Vital Signs Temp 98 F 01/12/20 16:01 Pulse 88 01/12/20 16:01 Resp 12 01/12/20 16:01 BP 98/55 L 01/12/20 16:01 Pulse Ox 97 01/12/20 16:01 Weight - Most Recent: 144 kg I&O - Last 24 Hours: Intake & Output 01/12/20 01/12/20 01/12/20 06:59 14:59 22:59 Intake Total 300 50 Output Total 800 1950 Balance -500 -1900 Lab Results Last 24 Hours: Laboratory Results - last 24 hr 01/12/20 01/12/20 01/12/20 Range/Units 05:40 05:40 07:59 WBC 7.04 (4.0-11.0) K/uL RBC 3.80 L (4.50-5.90) M/uL Hgb 10.1 L (13.0-17.0) g/dL Hct 34.2 L (38.0-50.0) % MCV 90.0 (80.0-98.0) fL MCH 26.6 L (27.0-32.0) pg MCHC 29.5 L (31.0-37.0) g/dL RDW Std Deviation 57.5 (28.0-62.0) fl RDW Coeff of [place] 17 H (11.0-15.0) % Plt Count 130 L (150-400) K/uL MPV 10.10 (7.40-12.00) fL Neut % (Auto) 77.1 (48.0-80.0) % Lymph % (Auto) 13.5 L (16.0-40.0) % [place] % (Auto) 8.5 (0.0-15.0) % Eos % (Auto) 0.6 (0.0-7.0) % Baso % (Auto) 0.3 (0.0-1.5) % Neut # (Auto) 5.4 (1.4-5.7) K/uL Lymph # (Auto) 1.0 (0.6-2.4) K/uL [place] # (Auto) 0.6 (0.0-0.8) K/uL Eos # (Auto) 0.0 (0.0-0.7) K/uL Baso # (Auto) 0.0 (0.0-0.1) K/uL Nucleated RBC % 0.0 /100WBC Nucleated RBCs # 0 K/uL INR APTT (18.6-31.3) SEC Lactate (0.20-2.00) mmol/L Sodium 142 (136-148) mmol/L Potassium 3.9 (3.5-5.1) mmol/L Chloride 104 (98-107) mmol/L Carbon Dioxide 31.7 (21.0-32.0) mmol/L BUN 44 H (7.0-18.0) mg/dL Creatinine 1.7 H (0.8-1.3) mg/dL Est Cr Clr Drug Dosing TNP Estimated GFR (MDRD) 38.8 ml/min Glucose 112 H (74-106) mg/dL POC Glucose 121 H (60-110) mg/dL Calcium 8.6 (8.5-10.1) mg/dL Blood Type Antibody Screen 01/12/20 01/12/20 01/12/20 Range/Units 10:32 11:40 11:40 WBC (4.0-11.0) K/uL RBC (4.50-5.90) M/uL Hgb (13.0-17.0) g/dL Hct (38.0-50.0) % MCV (80.0-98.0) fL MCH (27.0-32.0) pg MCHC (31.0-37.0) g/dL RDW Std Deviation (28.0-62.0) fl RDW Coeff of [place] (11.0-15.0) % Plt Count (150-400) K/uL MPV (7.40-12.00) fL Neut % (Auto) (48.0-80.0) % Lymph % (Auto) (16.0-40.0) % [place] % (Auto) (0.0-15.0) % Eos % (Auto) (0.0-7.0) % Baso % (Auto) (0.0-1.5) % Neut # (Auto) (1.4-5.7) K/uL Lymph # (Auto) (0.6-2.4) K/uL [place] # (Auto) (0.0-0.8) K/uL Eos # (Auto) (0.0-0.7) K/uL Baso # (Auto) (0.0-0.1) K/uL Nucleated RBC % /100WBC Nucleated RBCs # K/uL INR 1.40 APTT 31.0 (18.6-31.3) SEC Lactate 0.8 (0.20-2.00) mmol/L Sodium (136-148) mmol/L Potassium (3.5-5.1) mmol/L Chloride (98-107) mmol/L Carbon Dioxide (21.0-32.0) mmol/L BUN (7.0-18.0) mg/dL Creatinine (0.8-1.3) mg/dL Est Cr Clr Drug Dosing Estimated GFR (MDRD) ml/min Glucose (74-106) mg/dL POC Glucose (60-110) mg/dL Calcium (8.5-10.1) mg/dL Blood Type A POSITIVE Antibody Screen NEGATIVE 01/12/20 01/12/20 Range/Units 12:07 15:30 WBC 6.21 (4.0-11.0) K/uL RBC 3.61 L (4.50-5.90) M/uL Hgb 9.6 L (13.0-17.0) g/dL Hct 32.8 L (38.0-50.0) % MCV 90.9 (80.0-98.0) fL MCH 26.6 L (27.0-32.0) pg MCHC 29.3 L (31.0-37.0) g/dL RDW Std Deviation 57.2 (28.0-62.0) fl RDW Coeff of [place] 17 H (11.0-15.0) % Plt Count 123 L (150-400) K/uL MPV 9.20 (7.40-12.00) fL Neut % (Auto) 74.8 (48.0-80.0) % Lymph % (Auto) 14.8 L (16.0-40.0) % [place] % (Auto) 9.2 (0.0-15.0) % Eos % (Auto) 1.0 (0.0-7.0) % Baso % (Auto) 0.2 (0.0-1.5) % Neut # (Auto) 4.7 (1.4-5.7) K/uL Lymph # (Auto) 0.9 (0.6-2.4) K/uL [place] # (Auto) 0.6 (0.0-0.8) K/uL Eos # (Auto) 0.1 (0.0-0.7) K/uL Baso # (Auto) 0.0 (0.0-0.1) K/uL Nucleated RBC % 0.0 /100WBC Nucleated RBCs # 0 K/uL INR APTT (18.6-31.3) SEC Lactate (0.20-2.00) mmol/L Sodium (136-148) mmol/L Potassium (3.5-5.1) mmol/L Chloride (98-107) mmol/L Carbon Dioxide (21.0-32.0) mmol/L BUN (7.0-18.0) mg/dL Creatinine (0.8-1.3) mg/dL Est Cr Clr Drug Dosing Estimated GFR (MDRD) ml/min Glucose (74-106) mg/dL POC Glucose 121 H (60-110) mg/dL Calcium (8.5-10.1) mg/dL Blood Type Antibody Screen Felipe Results Last 24 Hours: Microbiology 01/10/20 22:24 Aerobic Blood Culture - Preliminary Blood - Venous - Lab Draw NO GROWTH AFTER 1 DAY Anaerobic Blood Culture - Preliminary NO GROWTH AFTER 1 DAY 01/10/20 22:15 Aerobic Blood Culture - Preliminary Blood - Venous NO GROWTH AFTER 1 DAY Anaerobic Blood Culture - Preliminary NO GROWTH AFTER 1 DAY Med Orders - Current: Current Medications Acetaminophen (Tylenol Extra Strength) 500 mg PO Q6H PRN PRN Reason: Pain Last Admin: 01/11/20 09:04 Dose: 500 mg Documented by: Albuterol/Ipratropium (Duoneb 3.0-0.5 Mg/3 Ml) 3 ml NEB Q4HRRT PRN PRN Reason: Shortness Of Breath/wheezing Diltiazem HCl (Diltiazem) 20 mg IVPUSH Q2HR PRN PRN Reason: Tachycardia Last Admin: 01/11/20 23:14 Dose: 20 mg Documented by: Furosemide (Lasix) 40 mg IVPUSH BIDDIURETIC [facility] Last Admin: 01/12/20 15:05 Dose: 40 mg Documented by: Piperacillin Sod/Tazobactam (Sod 3.375 gm/ Sodium Chloride) 100 mls @ 200 mls/hr IV Q6H [facility] Last Admin: 01/12/20 13:52 Dose: 200 mls/hr Documented by: Vancomycin HCl 1.5 gm/ Premix 300 mls @ 200 mls/hr IV Q12H [facility] Last Admin: 01/12/20 14:00 Dose: 200 mls/hr Documented by: Metoprolol Tartrate 50 mg/ (Sodium Chloride) 150 mls @ 150 mls/hr IV BID [facility] Azithromycin 500 mg/ Sodium (Chloride) 250 mls @ 250 mls/hr IV Q24H [facility] Last Admin: 01/12/20 16:05 Dose: 250 mls/hr Documented by: Insulin Aspart (Novolog) 0 unit SUBCUT TIDAC [facility]; Protocol Last Admin: 01/12/20 12:26 Dose: Not Given Documented by: Sodium Chloride (Saline Flush) 10 ml FLUSH ASDIRECTED PRN PRN Reason: Keep Vein Open Sodium Chloride (Saline Flush) 2.5 ml FLUSH ASDIRECTED PRN PRN Reason: Keep Vein Open Vancomycin HCl (Pharmacy To Dose - Vancomycin) 1 dose .XX ASDIRECTED [facility] Discontinued Medications Apixaban (Eliquis) 5 mg PO BID [facility] Last Admin: 01/12/20 09:57 Dose: Not Given Documented by: Finasteride (Proscar) 5 mg PO DAILY [facility] Last Admin: 01/12/20 09:57 Dose: Not Given Documented by: Furosemide (Lasix) 80 mg PO DAILY [facility] Last Admin: 01/12/20 09:56 Dose: Not Given Documented by: Furosemide (Lasix) 40 mg IVPUSH NOW ONE Stop: 01/12/20 09:49 Last Admin: 01/12/20 11:51 Dose: Not Given Documented by: Gabapentin (Neurontin) 300 mg PO TID [facility] Last Admin: 01/11/20 23:22 Dose: Not Given Documented by: Gabapentin (Neurontin) 300 mg PO TID [facility] Last Admin: 01/12/20 06:13 Dose: 300 mg Documented by: Sodium Chloride (Normal Saline) 1,000 mls @ 999 mls/hr IV .Bolus ONE Stop: 01/10/20 23:00 Last Admin: 01/10/20 22:18 Dose: 999 mls/hr Documented by: Sodium Chloride (Normal Saline) 1,000 mls @ 125 mls/hr IV ASDIRECTED [facility] Last Infusion: 01/11/20 01:52 Dose: 125 mls/hr Documented by: Sodium Chloride (Normal Saline) 500 mls @ 999 mls/hr IV .BOLUS ONE Stop: 01/11/20 01:47 Last Admin: 01/11/20 01:40 Dose: Not Given Documented by: Ceftriaxone Sodium/Dextrose 1 (gm/ Premix) 50 mls @ 100 mls/hr IV ONETIME ONE Stop: 01/11/20 02:09 Last Admin: 01/11/20 01:52 Dose: 100 mls/hr Documented by: Sodium Chloride (Normal Saline) 1,000 mls @ 100 mls/hr IV ASDIRECTED [facility] Last Admin: 01/11/20 13:17 Dose: 125 mls/hr Documented by: Ceftriaxone Sodium/Dextrose 1 (gm/ Premix) 50 mls @ 100 mls/hr IV Q24H [facility] Last Admin: 01/12/20 11:51 Dose: Not Given Documented by: Azithromycin 500 mg/ Sodium (Chloride) 250 mls @ 250 mls/hr IV ONETIME [facility] Last Admin: 01/11/20 03:24 Dose: 250 mls/hr Documented by: Piperacillin Sod/Tazobactam (Sod 3.375 gm/ Sodium Chloride) 100 mls @ 200 mls/hr IV Q6H [facility] Last Admin: 01/12/20 12:21 Dose: Not Given Documented by: Azithromycin 500 mg/ Sodium (Chloride) 250 mls @ 250 mls/hr IV Q24H [facility] Azithromycin 500 mg/ Sodium (Chloride) 250 mls @ 250 mls/hr IV Q24H [facility] Melatonin (Melatonin) 6 mg PO BEDTIME [facility] Last Admin: 01/11/20 21:41 Dose: 6 mg Documented by: Metoprolol Tartrate (Lopressor) 125 mg PO BID [facility] Last Admin: 01/12/20 09:56 Dose: Not Given Documented by: Simvastatin (Zocor) 40 mg PO BEDTIME [facility] Last Admin: 01/11/20 21:41 Dose: 40 mg Documented by: - Exam General: Alert, Mild Distress Lungs: Decreased Breath Sounds, Rales Cardiovascular: Regular Rate, Irregular Rhythm GI/Abdominal Exam: Soft, Non-Tender, No Distention Extremities: Pedal Edema (3+ LE, bilaterally) Neurological: No: Normal Speech Psy/Mental Status: Other (lethargic, decreased alertness form previous days). No: Normal Affect, Normal Mood Sepsis Event Note - Evaluation Sepsis Screening Result: No Definite Risk - Focused Exam Vital Signs: Vital Signs Temp Temp Pulse Pulse Resp BP BP 01/12/20 16:01 98 F 88 12 98/55 L 01/12/20 12:00 98.5 F 103 H 14 160/55 H 01/12/20 11:58 98.5 F 88 18 97/52 L 01/12/20 09:56 102 H 107/62 01/12/20 07:00 98.6 F 100 16 104/57 L Pulse Ox 01/12/20 16:01 97 01/12/20 12:00 93 L 01/12/20 11:58 92 L 01/12/20 09:56 01/12/20 07:00 93 L - Problem List Review Problem List Initiated/Reviewed/Updated: Yes - My Orders Last 24 Hours: My Active Orders 01/11/20 15:39 Consult to Wound Care Services [CONS] Routine 01/11/20 15:54 Intake and Output Strict [RC] ASDIRECTED 01/11/20 17:00 Insulin Aspart [NovoLOG] See Protocol SUBCUT TIDAC 01/11/20 20:57 Diltiazem 20 mg IVPUSH Q2HR PRN 01/12/20 08:56 Consult to Speech Language Pathology [MANUFACTURING MAINTENANCE TECHNICIAN Evaluation and Treatment] [CONS] Routine 01/12/20 09:12 Code Status [Resuscitation Status] Routine 01/12/20 12:14 Transfuse Fresh Frozen Plasma [COMM] Routine 01/12/20 13:03 Antiembolic Devices [RC] PER UNIT ROUTINE SCD [Sequential Compression Device] [OM.PC] Routine 01/12/20 21:00 Metoprolol Tartrate [Lopressor] 50 mg Sodium Chloride 0.9% [Normal Saline] 100 ml IV BID - Plan Plan:: Pneumonia- Urgent C-Xray ordered this morning which showed signs of worsening pneumonia or atelectasis or both in patients left lung. Started Vancomycin and Zosyn. Continued Azithromycin 500mg Q24, [place], O2 support to maintano2%sat above 90%. Patient does require some oxygen support at nursing facility but not sure how much. Per daughter oxygen is as needed. Speech consult obtained to assess for aspiration risk. UTI: Patient was being treated with ceftriaxone. Antibiotics coverage switched today to include Vancomycin and Zosyn for a pneumonia infection. Will continue with these abx as they should also cover UTI bacteria HTN, CHF, A-Fib, CAD- Eliquis stopped today as patient was having urethral bleeding after catheter change. Will reassess tomorrow and restart eliquis when appropriate. SCD ordered. Metoprolol switched to IV 50mg BID as patient was unable to tolerate oral meds. Will resume oral meds when appropriate. IV Lasix 40mg BID Diabetes- Insulin SS, Diabetic Diet WAQAR- BiPAP at night and during the day if needed <Paula Oneill - Last Filed: 01/13/20 13:46> - General Info Subjective Update: I have seen and evaluated the patient and agree with the residents note unless specified in my note - Patient Data Vitals - Most Recent: Last Vital Signs Temp 37.0 C 01/13/20 11:56 Pulse 123 H 01/13/20 12:21 Resp 15 01/13/20 11:56 BP 100/60 01/13/20 12:21 Pulse Ox 98 01/13/20 11:56 I&O - Last 24 Hours: Intake & Output 01/12/20 01/13/20 01/13/20 22:59 06:59 14:59 Intake Total 1024 900 Output Total 1950 1650 Balance -516 -255 Lab Results Last 24 Hours: Laboratory Results - last 24 hr 01/10/20 01/12/20 01/12/20 Range/Units 22:00 11:40 15:30 WBC 6.21 (4.0-11.0) K/uL RBC 3.61 L (4.50-5.90) M/uL Hgb 9.6 L (13.0-17.0) g/dL Hct 32.8 L (38.0-50.0) % MCV 90.9 (80.0-98.0) fL MCH 26.6 L (27.0-32.0) pg MCHC 29.3 L (31.0-37.0) g/dL RDW Std Deviation 57.2 (28.0-62.0) fl RDW Coeff of [place] 17 H (11.0-15.0) % Plt Count 123 L (150-400) K/uL MPV 9.20 (7.40-12.00) fL Neut % (Auto) 74.8 (48.0-80.0) % Lymph % (Auto) 14.8 L (16.0-40.0) % [place] % (Auto) 9.2 (0.0-15.0) % Eos % (Auto) 1.0 (0.0-7.0) % Baso % (Auto) 0.2 (0.0-1.5) % Neut # (Auto) 4.7 (1.4-5.7) K/uL Lymph # (Auto) 0.9 (0.6-2.4) K/uL [place] # (Auto) 0.6 (0.0-0.8) K/uL Eos # (Auto) 0.1 (0.0-0.7) K/uL Baso # (Auto) 0.0 (0.0-0.1) K/uL Nucleated RBC % 0.0 /100WBC Nucleated RBCs # 0 K/uL Sodium (136-148) mmol/L Potassium (3.5-5.1) mmol/L Chloride (98-107) mmol/L Carbon Dioxide (21.0-32.0) mmol/L BUN (7.0-18.0) mg/dL Creatinine (0.8-1.3) mg/dL Est Cr Clr Drug Dosing mL/min Estimated GFR (MDRD) ml/min Glucose (74-106) mg/dL POC Glucose (60-110) mg/dL Calcium (8.5-10.1) mg/dL Magnesium (1.8-2.4) mg/dL Total Bilirubin (0.2-1.0) mg/dL AST (15-37) IU/L ALT (14-63) IU/L Alkaline Phosphatase (46-116) U/L Total Protein (6.4-8.2) g/dL Albumin (3.4-5.0) g/dL Globulin (2.6-4.0) g/dL Albumin/Globulin Ratio (0.9-1.6) SARS-CoV-2 (PCR) NOT DETECTED (NOT DETECT) Blood Type A POSITIVE Antibody Screen NEGATIVE 01/12/20 01/12/20 01/13/20 Range/Units 17:08 19:48 06:00 WBC 5.96 5.09 (4.0-11.0) K/uL RBC 3.45 L 3.51 L (4.50-5.90) M/uL Hgb 9.2 L 9.4 L (13.0-17.0) g/dL Hct 31.2 L 31.8 L (38.0-50.0) % MCV 90.4 90.6 (80.0-98.0) fL MCH 26.7 L 26.8 L (27.0-32.0) pg MCHC 29.5 L 29.6 L (31.0-37.0) g/dL RDW Std Deviation 57.2 56.7 (28.0-62.0) fl RDW Coeff of [place] 17 H 17 H (11.0-15.0) % Plt Count 113 L 119 L (150-400) K/uL MPV 8.90 9.70 (7.40-12.00) fL Neut % (Auto) 77.6 71.3 (48.0-80.0) % Lymph % (Auto) 12.8 L 17.7 (16.0-40.0) % [place] % (Auto) 8.1 7.5 (0.0-15.0) % Eos % (Auto) 1.3 3.3 (0.0-7.0) % Baso % (Auto) 0.2 0.2 (0.0-1.5) % Neut # (Auto) 4.6 3.6 (1.4-5.7) K/uL Lymph # (Auto) 0.8 0.9 (0.6-2.4) K/uL [place] # (Auto) 0.5 0.4 (0.0-0.8) K/uL Eos # (Auto) 0.1 0.2 (0.0-0.7) K/uL Baso # (Auto) 0.0 0.0 (0.0-0.1) K/uL Nucleated RBC % 0.0 0.0 /100WBC Nucleated RBCs # 0 0 K/uL Sodium (136-148) mmol/L Potassium (3.5-5.1) mmol/L Chloride (98-107) mmol/L Carbon Dioxide (21.0-32.0) mmol/L BUN (7.0-18.0) mg/dL Creatinine (0.8-1.3) mg/dL Est Cr Clr Drug Dosing mL/min Estimated GFR (MDRD) ml/min Glucose (74-106) mg/dL POC Glucose 110 (60-110) mg/dL Calcium (8.5-10.1) mg/dL Magnesium (1.8-2.4) mg/dL Total Bilirubin (0.2-1.0) mg/dL AST (15-37) IU/L ALT (14-63) IU/L Alkaline Phosphatase (46-116) U/L Total Protein (6.4-8.2) g/dL Albumin (3.4-5.0) g/dL Globulin (2.6-4.0) g/dL Albumin/Globulin Ratio (0.9-1.6) SARS-CoV-2 (PCR) (NOT DETECT) Blood Type Antibody Screen 01/13/20 01/13/20 01/13/20 Range/Units 06:00 07:15 11:55 WBC (4.0-11.0) K/uL RBC (4.50-5.90) M/uL Hgb (13.0-17.0) g/dL Hct (38.0-50.0) % MCV (80.0-98.0) fL MCH (27.0-32.0) pg MCHC (31.0-37.0) g/dL RDW Std Deviation (28.0-62.0) fl RDW Coeff of [place] (11.0-15.0) % Plt Count (150-400) K/uL MPV (7.40-12.00) fL Neut % (Auto) (48.0-80.0) % Lymph % (Auto) (16.0-40.0) % [place] % (Auto) (0.0-15.0) % Eos % (Auto) (0.0-7.0) % Baso % (Auto) (0.0-1.5) % Neut # (Auto) (1.4-5.7) K/uL Lymph # (Auto) (0.6-2.4) K/uL [place] # (Auto) (0.0-0.8) K/uL Eos # (Auto) (0.0-0.7) K/uL Baso # (Auto) (0.0-0.1) K/uL Nucleated RBC % /100WBC Nucleated RBCs # K/uL Sodium 141 (136-148) mmol/L Potassium 3.6 (3.5-5.1) mmol/L Chloride 103 (98-107) mmol/L Carbon Dioxide 33.3 H (21.0-32.0) mmol/L BUN 36 H (7.0-18.0) mg/dL Creatinine 1.5 H (0.8-1.3) mg/dL Est Cr Clr Drug Dosing 44.14 mL/min Estimated GFR (MDRD) 44.8 ml/min Glucose 122 H (74-106) mg/dL POC Glucose 113 H 149 H (60-110) mg/dL Calcium 8.2 L (8.5-10.1) mg/dL Magnesium 2.0 (1.8-2.4) mg/dL Total Bilirubin 0.5 (0.2-1.0) mg/dL AST 16 (15-37) IU/L ALT 12 L (14-63) IU/L Alkaline Phosphatase 77 (46-116) U/L Total Protein 6.6 (6.4-8.2) g/dL Albumin 2.5 L (3.4-5.0) g/dL Globulin 4.1 H (2.6-4.0) g/dL Albumin/Globulin Ratio 0.6 L (0.9-1.6) SARS-CoV-2 (PCR) (NOT DETECT) Blood Type Antibody Screen Felipe Results Last 24 Hours: Microbiology 01/12/20 10:32 Aerobic Blood Culture - Preliminary Blood - Venous - Lab Draw NO GROWTH AFTER 1 DAY Anaerobic Blood Culture - Preliminary NO GROWTH AFTER 1 DAY 01/12/20 10:20 Aerobic Blood Culture - Preliminary Blood - Venous NO GROWTH AFTER 1 DAY Anaerobic Blood Culture - Preliminary NO GROWTH AFTER 1 DAY 01/10/20 22:24 Aerobic Blood Culture - Preliminary Blood - Venous - Lab Draw Anaerobic Blood Culture - Preliminary NO GROWTH AFTER 2 DAYS 01/10/20 22:20 Urine Culture - Final Urine, Clean Catch Proteus Mirabilis 01/10/20 22:15 Aerobic Blood Culture - Preliminary Blood - Venous NO GROWTH AFTER 2 DAYS Anaerobic Blood Culture - Preliminary NO GROWTH AFTER 2 DAYS Med Orders - Current: Current Medications Acetaminophen (Tylenol Extra Strength) 500 mg PO Q6H PRN PRN Reason: Pain Last Admin: 01/11/20 09:04 Dose: 500 mg Documented by: Albuterol/Ipratropium (Duoneb 3.0-0.5 Mg/3 Ml) 3 ml NEB Q4HRRT PRN PRN Reason: Shortness Of Breath/wheezing Diltiazem HCl (Diltiazem) 20 mg IVPUSH Q2HR PRN PRN Reason: Tachycardia Last Admin: 01/11/20 23:14 Dose: 20 mg Documented by: Furosemide (Lasix) 40 mg PO BIDDIURETIC [facility] Piperacillin Sod/Tazobactam (Sod 3.375 gm/ Sodium Chloride) 100 mls @ 200 mls/hr IV Q6H [facility] Last Admin: 01/13/20 12:52 Dose: 200 mls/hr Documented by: Vancomycin HCl 1.5 gm/ Premix 300 mls @ 200 mls/hr IV Q12H [facility] Last Admin: 01/13/20 02:06 Dose: 200 mls/hr Documented by: Azithromycin 500 mg/ Sodium (Chloride) 250 mls @ 250 mls/hr IV Q24H [facility] Last Admin: 01/12/20 16:05 Dose: 250 mls/hr Documented by: Insulin Aspart (Novolog) 0 unit SUBCUT TIDAC [facility]; Protocol Last Admin: 01/13/20 11:56 Dose: Not Given Documented by: Metoprolol Tartrate (Lopressor) 125 mg PO Q12H [facility] Last Admin: 01/13/20 12:21 Dose: 125 mg Documented by: Sodium Chloride (Saline Flush) 10 ml FLUSH ASDIRECTED PRN PRN Reason: Keep Vein Open Sodium Chloride (Saline Flush) 2.5 ml FLUSH ASDIRECTED PRN PRN Reason: Keep Vein Open Vancomycin HCl (Pharmacy To Dose - Vancomycin) 1 dose .XX ASDIRECTED [facility] Discontinued Medications Apixaban (Eliquis) 5 mg PO BID [facility] Last Admin: 01/12/20 09:57 Dose: Not Given Documented by: Finasteride (Proscar) 5 mg PO DAILY [facility] Last Admin: 01/12/20 09:57 Dose: Not Given Documented by: Furosemide (Lasix) 80 mg PO DAILY [facility] Last Admin: 01/12/20 09:56 Dose: Not Given Documented by: Furosemide (Lasix) 40 mg IVPUSH NOW ONE Stop: 01/12/20 09:49 Last Admin: 01/12/20 11:51 Dose: Not Given Documented by: Furosemide (Lasix) 40 mg IVPUSH BIDDIURETIC [facility] Last Admin: 01/13/20 08:57 Dose: 40 mg Documented by: Gabapentin (Neurontin) 300 mg PO TID [facility] Last Admin: 01/11/20 23:22 Dose: Not Given Documented by: Gabapentin (Neurontin) 300 mg PO TID [facility] Last Admin: 01/12/20 06:13 Dose: 300 mg Documented by: Sodium Chloride (Normal Saline) 1,000 mls @ 999 mls/hr IV .Bolus ONE Stop: 01/10/20 23:00 Last Admin: 01/10/20 22:18 Dose: 999 mls/hr Documented by: Sodium Chloride (Normal Saline) 1,000 mls @ 125 mls/hr IV ASDIRECTED [facility] Last Infusion: 01/11/20 01:52 Dose: 125 mls/hr Documented by: Sodium Chloride (Normal Saline) 500 mls @ 999 mls/hr IV .BOLUS ONE Stop: 01/11/20 01:47 Last Admin: 01/11/20 01:40 Dose: Not Given Documented by: Ceftriaxone Sodium/Dextrose 1 (gm/ Premix) 50 mls @ 100 mls/hr IV ONETIME ONE Stop: 01/11/20 02:09 Last Admin: 01/11/20 01:52 Dose: 100 mls/hr Documented by: Sodium Chloride (Normal Saline) 1,000 mls @ 100 mls/hr IV ASDIRECTED [facility] Last Admin: 01/11/20 13:17 Dose: 125 mls/hr Documented by: Ceftriaxone Sodium/Dextrose 1 (gm/ Premix) 50 mls @ 100 mls/hr IV Q24H [facility] Last Admin: 01/12/20 11:51 Dose: Not Given Documented by: Azithromycin 500 mg/ Sodium (Chloride) 250 mls @ 250 mls/hr IV ONETIME [facility] Last Admin: 01/11/20 03:24 Dose: 250 mls/hr Documented by: Piperacillin Sod/Tazobactam (Sod 3.375 gm/ Sodium Chloride) 100 mls @ 200 mls/hr IV Q6H [facility] Last Admin: 01/12/20 12:21 Dose: Not Given Documented by: Azithromycin 500 mg/ Sodium (Chloride) 250 mls @ 250 mls/hr IV Q24H [facility] Azithromycin 500 mg/ Sodium (Chloride) 250 mls @ 250 mls/hr IV Q24H [facility] Last Admin: 01/12/20 16:29 Dose: Not Given Documented by: Metoprolol Tartrate 50 mg/ (Sodium Chloride) 150 mls @ 150 mls/hr IV BID [facility] Last Admin: 01/13/20 11:00 Dose: Not Given Documented by: Melatonin (Melatonin) 6 mg PO BEDTIME [facility] Last Admin: 01/11/20 21:41 Dose: 6 mg Documented by: Metoprolol Tartrate (Lopressor) 125 mg PO BID [facility] Last Admin: 01/12/20 09:56 Dose: Not Given Documented by: Simvastatin (Zocor) 40 mg PO BEDTIME [facility] Last Admin: 01/11/20 21:41 Dose: 40 mg Documented by: Sepsis Event Note - Focused Exam Vital Signs: Vital Signs Temp Pulse Pulse Resp BP BP Pulse Ox 01/13/20 12:21 123 H 100/60 01/13/20 11:56 37.0 C 99 15 100/60 98 01/13/20 08:09 36.6 C 112 H 14 107/64 90 L 01/13/20 05:00 36.9 C 95 18 116/62 88 L - Plan Plan:: I have seen and evaluated the patient and agree with the residents note unless specified in my note
[2020-01-12] MEDS: METOPROLOL TARTRATE IV SCH (21:13)
[2020-01-12] MEDS: SODIUM CHLORIDE 0.9% IV SCH (21:13)
[2020-01-13] MEDS: Piperacillin/Tazobactam 3.375 GM in Sodium Chloride 0.9% 100 ML IV SCH ×5 (00:32→23:48)
[2020-01-13] MEDS ORDERED: Azithromycin 500 MG in Sodium Chloride 0.9% 250 ML IV SCH (03:00)
[2020-01-13 06:49] LABS: CARBON DIOXIDE,CO2 33.3 mmol/L (21.0-32.0); POTASSIUM,K 3.6 mmol/L (3.5-5.1)
[2020-01-13] MEDS: Insulin Aspart 100 Units/ML 3 ML Pen SUBCUT SCH ×3 (08:10→18:31)
[2020-01-13] MEDS: Furosemide 40 MG/4 ML VIAL IVPUSH SCH (08:57)
[2020-01-13] MEDS: SODIUM CHLORIDE 0.9% IV SCH (11:00)
[2020-01-13] MEDS: METOPROLOL TARTRATE IV SCH (11:00)
--- NOTE | 2020-01-13 11:39 | PCM.PN ---
<Deejay Cunningham - Last Filed: 01/13/20 12:40> - General Info Date of Service: 01/13/20 Subjective Update: Bedside: no acute complaints Functional Status: Reports: Pain Controlled - Review of Systems General: Reports: No Symptoms HEENT: Reports: No Symptoms Pulmonary: Reports: Cough Cardiovascular: Reports: No Symptoms Gastrointestinal: Reports: No Symptoms Genitourinary: Reports: Hematuria, Retention. Denies: Dysuria, Pain Musculoskeletal: Reports: No Symptoms Skin: Reports: No Symptoms Neurological: Reports: No Symptoms - Patient Data Vitals - Most Recent: Last Vital Signs Temp 98 F 01/13/20 08:09 Pulse 112 H 01/13/20 08:09 Resp 14 01/13/20 08:09 BP 107/64 01/13/20 08:09 Pulse Ox 90 L 01/13/20 08:09 Weight - Most Recent: 144 kg I&O - Last 24 Hours: Intake & Output 01/12/20 01/13/20 01/13/20 22:59 06:59 14:59 Intake Total 1024 900 Output Total 1950 1650 Balance -926 -750 Lab Results Last 24 Hours: Laboratory Results - last 24 hr 01/10/20 01/12/20 01/12/20 Range/Units 22:00 11:40 11:40 WBC (4.0-11.0) K/uL RBC (4.50-5.90) M/uL Hgb (13.0-17.0) g/dL Hct (38.0-50.0) % MCV (80.0-98.0) fL MCH (27.0-32.0) pg MCHC (31.0-37.0) g/dL RDW Std Deviation (28.0-62.0) fl RDW Coeff of Yanick (11.0-15.0) % Plt Count (150-400) K/uL MPV (7.40-12.00) fL Neut % (Auto) (48.0-80.0) % Lymph % (Auto) (16.0-40.0) % [place] % (Auto) (0.0-15.0) % Eos % (Auto) (0.0-7.0) % Baso % (Auto) (0.0-1.5) % Neut # (Auto) (1.4-5.7) K/uL Lymph # (Auto) (0.6-2.4) K/uL [place] # (Auto) (0.0-0.8) K/uL Eos # (Auto) (0.0-0.7) K/uL Baso # (Auto) (0.0-0.1) K/uL Nucleated RBC % /100WBC Nucleated RBCs # K/uL INR 1.40 APTT 31.0 (18.6-31.3) SEC Sodium (136-148) mmol/L Potassium (3.5-5.1) mmol/L Chloride (98-107) mmol/L Carbon Dioxide (21.0-32.0) mmol/L BUN (7.0-18.0) mg/dL Creatinine (0.8-1.3) mg/dL Est Cr Clr Drug Dosing mL/min Estimated GFR (MDRD) ml/min Glucose (74-106) mg/dL POC Glucose (60-110) mg/dL Calcium (8.5-10.1) mg/dL Magnesium (1.8-2.4) mg/dL Total Bilirubin (0.2-1.0) mg/dL AST (15-37) IU/L ALT (14-63) IU/L Alkaline Phosphatase (46-116) U/L Total Protein (6.4-8.2) g/dL Albumin (3.4-5.0) g/dL Globulin (2.6-4.0) g/dL Albumin/Globulin Ratio (0.9-1.6) SARS-CoV-2 (PCR) NOT DETECTED (NOT DETECT) Blood Type A POSITIVE Antibody Screen NEGATIVE 01/12/20 01/12/20 01/12/20 Range/Units 12:07 15:30 17:08 WBC 6.21 (4.0-11.0) K/uL RBC 3.61 L (4.50-5.90) M/uL Hgb 9.6 L (13.0-17.0) g/dL Hct 32.8 L (38.0-50.0) % MCV 90.9 (80.0-98.0) fL MCH 26.6 L (27.0-32.0) pg MCHC 29.3 L (31.0-37.0) g/dL RDW Std Deviation 57.2 (28.0-62.0) fl RDW Coeff of Yanick 17 H (11.0-15.0) % Plt Count 123 L (150-400) K/uL MPV 9.20 (7.40-12.00) fL Neut % (Auto) 74.8 (48.0-80.0) % Lymph % (Auto) 14.8 L (16.0-40.0) % [place] % (Auto) 9.2 (0.0-15.0) % Eos % (Auto) 1.0 (0.0-7.0) % Baso % (Auto) 0.2 (0.0-1.5) % Neut # (Auto) 4.7 (1.4-5.7) K/uL Lymph # (Auto) 0.9 (0.6-2.4) K/uL [place] # (Auto) 0.6 (0.0-0.8) K/uL Eos # (Auto) 0.1 (0.0-0.7) K/uL Baso # (Auto) 0.0 (0.0-0.1) K/uL Nucleated RBC % 0.0 /100WBC Nucleated RBCs # 0 K/uL INR APTT (18.6-31.3) SEC Sodium (136-148) mmol/L Potassium (3.5-5.1) mmol/L Chloride (98-107) mmol/L Carbon Dioxide (21.0-32.0) mmol/L BUN (7.0-18.0) mg/dL Creatinine (0.8-1.3) mg/dL Est Cr Clr Drug Dosing mL/min Estimated GFR (MDRD) ml/min Glucose (74-106) mg/dL POC Glucose 121 H 110 (60-110) mg/dL Calcium (8.5-10.1) mg/dL Magnesium (1.8-2.4) mg/dL Total Bilirubin (0.2-1.0) mg/dL AST (15-37) IU/L ALT (14-63) IU/L Alkaline Phosphatase (46-116) U/L Total Protein (6.4-8.2) g/dL Albumin (3.4-5.0) g/dL Globulin (2.6-4.0) g/dL Albumin/Globulin Ratio (0.9-1.6) SARS-CoV-2 (PCR) (NOT DETECT) Blood Type Antibody Screen 01/12/20 01/13/20 01/13/20 Range/Units 19:48 06:00 06:00 WBC 5.96 5.09 (4.0-11.0) K/uL RBC 3.45 L 3.51 L (4.50-5.90) M/uL Hgb 9.2 L 9.4 L (13.0-17.0) g/dL Hct 31.2 L 31.8 L (38.0-50.0) % MCV 90.4 90.6 (80.0-98.0) fL MCH 26.7 L 26.8 L (27.0-32.0) pg MCHC 29.5 L 29.6 L (31.0-37.0) g/dL RDW Std Deviation 57.2 56.7 (28.0-62.0) fl RDW Coeff of Yanick 17 H 17 H (11.0-15.0) % Plt Count 113 L 119 L (150-400) K/uL MPV 8.90 9.70 (7.40-12.00) fL Neut % (Auto) 77.6 71.3 (48.0-80.0) % Lymph % (Auto) 12.8 L 17.7 (16.0-40.0) % [place] % (Auto) 8.1 7.5 (0.0-15.0) % Eos % (Auto) 1.3 3.3 (0.0-7.0) % Baso % (Auto) 0.2 0.2 (0.0-1.5) % Neut # (Auto) 4.6 3.6 (1.4-5.7) K/uL Lymph # (Auto) 0.8 0.9 (0.6-2.4) K/uL [place] # (Auto) 0.5 0.4 (0.0-0.8) K/uL Eos # (Auto) 0.1 0.2 (0.0-0.7) K/uL Baso # (Auto) 0.0 0.0 (0.0-0.1) K/uL Nucleated RBC % 0.0 0.0 /100WBC Nucleated RBCs # 0 0 K/uL INR APTT (18.6-31.3) SEC Sodium 141 (136-148) mmol/L Potassium 3.6 (3.5-5.1) mmol/L Chloride 103 (98-107) mmol/L Carbon Dioxide 33.3 H (21.0-32.0) mmol/L BUN 36 H (7.0-18.0) mg/dL Creatinine 1.5 H (0.8-1.3) mg/dL Est Cr Clr Drug Dosing 44.14 mL/min Estimated GFR (MDRD) 44.8 ml/min Glucose 122 H (74-106) mg/dL POC Glucose (60-110) mg/dL Calcium 8.2 L (8.5-10.1) mg/dL Magnesium 2.0 (1.8-2.4) mg/dL Total Bilirubin 0.5 (0.2-1.0) mg/dL AST 16 (15-37) IU/L ALT 12 L (14-63) IU/L Alkaline Phosphatase 77 (46-116) U/L Total Protein 6.6 (6.4-8.2) g/dL Albumin 2.5 L (3.4-5.0) g/dL Globulin 4.1 H (2.6-4.0) g/dL Albumin/Globulin Ratio 0.6 L (0.9-1.6) SARS-CoV-2 (PCR) (NOT DETECT) Blood Type Antibody Screen 01/13/20 Range/Units 07:15 WBC (4.0-11.0) K/uL RBC (4.50-5.90) M/uL Hgb (13.0-17.0) g/dL Hct (38.0-50.0) % MCV (80.0-98.0) fL MCH (27.0-32.0) pg MCHC (31.0-37.0) g/dL RDW Std Deviation (28.0-62.0) fl RDW Coeff of Yanick (11.0-15.0) % Plt Count (150-400) K/uL MPV (7.40-12.00) fL Neut % (Auto) (48.0-80.0) % Lymph % (Auto) (16.0-40.0) % [place] % (Auto) (0.0-15.0) % Eos % (Auto) (0.0-7.0) % Baso % (Auto) (0.0-1.5) % Neut # (Auto) (1.4-5.7) K/uL Lymph # (Auto) (0.6-2.4) K/uL [place] # (Auto) (0.0-0.8) K/uL Eos # (Auto) (0.0-0.7) K/uL Baso # (Auto) (0.0-0.1) K/uL Nucleated RBC % /100WBC Nucleated RBCs # K/uL INR APTT (18.6-31.3) SEC Sodium (136-148) mmol/L Potassium (3.5-5.1) mmol/L Chloride (98-107) mmol/L Carbon Dioxide (21.0-32.0) mmol/L BUN (7.0-18.0) mg/dL Creatinine (0.8-1.3) mg/dL Est Cr Clr Drug Dosing mL/min Estimated GFR (MDRD) ml/min Glucose (74-106) mg/dL POC Glucose 113 H (60-110) mg/dL Calcium (8.5-10.1) mg/dL Magnesium (1.8-2.4) mg/dL Total Bilirubin (0.2-1.0) mg/dL AST (15-37) IU/L ALT (14-63) IU/L Alkaline Phosphatase (46-116) U/L Total Protein (6.4-8.2) g/dL Albumin (3.4-5.0) g/dL Globulin (2.6-4.0) g/dL Albumin/Globulin Ratio (0.9-1.6) SARS-CoV-2 (PCR) (NOT DETECT) Blood Type Antibody Screen Felipe Results Last 24 Hours: Microbiology 01/12/20 10:32 Aerobic Blood Culture - Preliminary Blood - Venous - Lab Draw NO GROWTH AFTER 1 DAY Anaerobic Blood Culture - Preliminary NO GROWTH AFTER 1 DAY 01/12/20 10:20 Aerobic Blood Culture - Preliminary Blood - Venous NO GROWTH AFTER 1 DAY Anaerobic Blood Culture - Preliminary NO GROWTH AFTER 1 DAY 01/10/20 22:24 Aerobic Blood Culture - Preliminary Blood - Venous - Lab Draw Anaerobic Blood Culture - Preliminary NO GROWTH AFTER 2 DAYS 01/10/20 22:20 Urine Culture - Final Urine, Clean Catch Proteus Mirabilis 01/10/20 22:15 Aerobic Blood Culture - Preliminary Blood - Venous NO GROWTH AFTER 2 DAYS Anaerobic Blood Culture - Preliminary NO GROWTH AFTER 2 DAYS Med Orders - Current: Current Medications Acetaminophen (Tylenol Extra Strength) 500 mg PO Q6H PRN PRN Reason: Pain Last Admin: 01/11/20 09:04 Dose: 500 mg Documented by: Albuterol/Ipratropium (Duoneb 3.0-0.5 Mg/3 Ml) 3 ml NEB Q4HRRT PRN PRN Reason: Shortness Of Breath/wheezing Diltiazem HCl (Diltiazem) 20 mg IVPUSH Q2HR PRN PRN Reason: Tachycardia Last Admin: 01/11/20 23:14 Dose: 20 mg Documented by: Furosemide (Lasix) 40 mg PO BIDDIURETIC MARIANNA Piperacillin Sod/Tazobactam (Sod 3.375 gm/ Sodium Chloride) 100 mls @ 200 mls/hr IV Q6H [facility] Last Admin: 01/13/20 06:41 Dose: 200 mls/hr Documented by: Vancomycin HCl 1.5 gm/ Premix 300 mls @ 200 mls/hr IV Q12H [facility] Last Admin: 01/13/20 02:06 Dose: 200 mls/hr Documented by: Azithromycin 500 mg/ Sodium (Chloride) 250 mls @ 250 mls/hr IV Q24H [facility] Last Admin: 01/12/20 16:05 Dose: 250 mls/hr Documented by: Insulin Aspart (Novolog) 0 unit SUBCUT TIDAC [facility]; Protocol Last Admin: 01/13/20 08:10 Dose: Not Given Documented by: Metoprolol Tartrate (Lopressor) 125 mg PO Q12H [facility] Sodium Chloride (Saline Flush) 10 ml FLUSH ASDIRECTED PRN PRN Reason: Keep Vein Open Sodium Chloride (Saline Flush) 2.5 ml FLUSH ASDIRECTED PRN PRN Reason: Keep Vein Open Vancomycin HCl (Pharmacy To Dose - Vancomycin) 1 dose .XX ASDIRECTED MARIANNA Discontinued Medications Apixaban (Eliquis) 5 mg PO BID [facility] Last Admin: 01/12/20 09:57 Dose: Not Given Documented by: Finasteride (Proscar) 5 mg PO DAILY [facility] Last Admin: 01/12/20 09:57 Dose: Not Given Documented by: Furosemide (Lasix) 80 mg PO DAILY [facility] Last Admin: 01/12/20 09:56 Dose: Not Given Documented by: Furosemide (Lasix) 40 mg IVPUSH NOW ONE Stop: 01/12/20 09:49 Last Admin: 01/12/20 11:51 Dose: Not Given Documented by: Furosemide (Lasix) 40 mg IVPUSH BIDDIURETIC MARIANNA Last Admin: 01/13/20 08:57 Dose: 40 mg Documented by: Gabapentin (Neurontin) 300 mg PO TID [facility] Last Admin: 01/11/20 23:22 Dose: Not Given Documented by: Gabapentin (Neurontin) 300 mg PO TID [facility] Last Admin: 01/12/20 06:13 Dose: 300 mg Documented by: Sodium Chloride (Normal Saline) 1,000 mls @ 999 mls/hr IV .Bolus ONE Stop: 01/10/20 23:00 Last Admin: 01/10/20 22:18 Dose: 999 mls/hr Documented by: Sodium Chloride (Normal Saline) 1,000 mls @ 125 mls/hr IV ASDIRECTED [facility] Last Infusion: 01/11/20 01:52 Dose: 125 mls/hr Documented by: Sodium Chloride (Normal Saline) 500 mls @ 999 mls/hr IV .BOLUS ONE Stop: 01/11/20 01:47 Last Admin: 01/11/20 01:40 Dose: Not Given Documented by: Ceftriaxone Sodium/Dextrose 1 (gm/ Premix) 50 mls @ 100 mls/hr IV ONETIME ONE Stop: 01/11/20 02:09 Last Admin: 01/11/20 01:52 Dose: 100 mls/hr Documented by: Sodium Chloride (Normal Saline) 1,000 mls @ 100 mls/hr IV ASDIRECTED [facility] Last Admin: 01/11/20 13:17 Dose: 125 mls/hr Documented by: Ceftriaxone Sodium/Dextrose 1 (gm/ Premix) 50 mls @ 100 mls/hr IV Q24H [facility] Last Admin: 01/12/20 11:51 Dose: Not Given Documented by: Azithromycin 500 mg/ Sodium (Chloride) 250 mls @ 250 mls/hr IV ONETIME [facility] Last Admin: 01/11/20 03:24 Dose: 250 mls/hr Documented by: Piperacillin Sod/Tazobactam (Sod 3.375 gm/ Sodium Chloride) 100 mls @ 200 mls/hr IV Q6H [facility] Last Admin: 01/12/20 12:21 Dose: Not Given Documented by: Azithromycin 500 mg/ Sodium (Chloride) 250 mls @ 250 mls/hr IV Q24H [facility] Azithromycin 500 mg/ Sodium (Chloride) 250 mls @ 250 mls/hr IV Q24H [facility] Last Admin: 01/12/20 16:29 Dose: Not Given Documented by: Metoprolol Tartrate 50 mg/ (Sodium Chloride) 150 mls @ 150 mls/hr IV BID [facility] Last Admin: 01/13/20 11:00 Dose: Not Given Documented by: Melatonin (Melatonin) 6 mg PO BEDTIME [facility] Last Admin: 01/11/20 21:41 Dose: 6 mg Documented by: Metoprolol Tartrate (Lopressor) 125 mg PO BID [facility] Last Admin: 01/12/20 09:56 Dose: Not Given Documented by: Simvastatin (Zocor) 40 mg PO BEDTIME [facility] Last Admin: 01/11/20 21:41 Dose: 40 mg Documented by: - Exam Quality Assessment: Supplemental Oxygen General: Alert, Oriented, No Acute Distress Lungs: Decreased Breath Sounds Cardiovascular: Irregular Rhythm, Tachycardia GI/Abdominal Exam: Soft, Non-Tender (Male) Exam: Other (liu in palce; some blood around urethral meatus ; some blood clots noted in liu tubing otherwise ) Extremities: Pedal Edema Neurological: No New Focal Deficit Psy/Mental Status: Alert, Normal Affect, Normal Mood Sepsis Event Note - Evaluation Sepsis Screening Result: No Definite Risk - Focused Exam Vital Signs: Vital Signs Temp Pulse Resp BP Pulse Ox 01/13/20 08:09 98 F 112 H 14 107/64 90 L 01/13/20 05:00 98.5 F 95 18 116/62 88 L 01/13/20 01:00 97.5 F 103 H 18 118/70 97 - Problem List Review Problem List Initiated/Reviewed/Updated: Yes - My Orders Last 24 Hours: My Active Orders 01/13/20 09:20 Consult to Physical Therapy [PT Evaluation and Treatment] [CONS] Routine 01/13/20 11:30 Metoprolol Tartrate [Lopressor] 125 mg PO Q12H 01/13/20 14:00 Furosemide [Lasix] 40 mg PO BIDDIURETIC 01/13/20 Dinner Thickened Liquids [DIET] 01/14/20 05:11 CBC WITH AUTO DIFF [HEME] AM COMPREHENSIVE METABOLIC PN,CMP [CHEM] AM 01/15/20 05:11 CBC WITH AUTO DIFF [HEME] AM COMPREHENSIVE METABOLIC PN,CMP [CHEM] AM - Plan Plan:: Pneumonia- Continue Vancomycin and Zosyn. Continued Azithromycin 500mg Q24, [place], O2 support to maintano2%sat above 90%. Patient does require some oxygen support at nursing facility but not sure how much. Per daughter oxygen is as needed. Speech consult obtained: continue with thickened liquids UTI secondary to proteus Mirabilis : Continue Vancomycin and Zosyn. Will do continuous liu irrigation after bladder scan to evaluate for retention; some resistance with irrigation this AM; can consider prostate involvement; may consider tamsulosin, urology referral etc. ESTEE improving HTN, CHF, A-Fib, CAD- Eliquis held today as well patient was having urethral bleeding after catheter change; metoprolol 125 BID resumed PO Lasix PO resumed as well : 40 bid Diabetes- Insulin SS, Diabetic Diet WAQAR- BiPAP at night and during the day if needed <Paula Oneill - Last Filed: 01/18/20 20:07> - General Info Subjective Update: I have seen and evaluated the patient and agree with the residents note unless specified in my note - Patient Data Vitals - Most Recent: Last Vital Signs Temp 36.5 C 01/16/20 11:05 Pulse 93 01/16/20 11:34 Resp 16 01/16/20 11:05 BP 144/79 H 01/16/20 11:34 Pulse Ox 97 01/16/20 11:05 Med Orders - Current: Current Medications Discontinued Medications Acetaminophen (Tylenol Extra Strength) 500 mg PO Q6H PRN PRN Reason: Pain Last Admin: 01/11/20 09:04 Dose: 500 mg Documented by: Albuterol/Ipratropium (Duoneb 3.0-0.5 Mg/3 Ml) 3 ml NEB Q4HRRT PRN PRN Reason: Shortness Of Breath/wheezing Last Admin: 01/15/20 06:35 Dose: 3 ml Documented by: Apixaban (Eliquis) 5 mg PO BID [facility] Last Admin: 01/12/20 09:57 Dose: Not Given Documented by: Diltiazem HCl (Diltiazem) 20 mg IVPUSH Q2HR PRN PRN Reason: Tachycardia Last Admin: 01/11/20 23:14 Dose: 20 mg Documented by: Finasteride (Proscar) 5 mg PO DAILY [facility] Last Admin: 01/12/20 09:57 Dose: Not Given Documented by: Finasteride (Proscar) 5 mg PO DAILY [facility] Last Admin: 01/16/20 08:51 Dose: 5 mg Documented by: Furosemide (Lasix) 80 mg PO DAILY [facility] Last Admin: 01/12/20 09:56 Dose: Not Given Documented by: Furosemide (Lasix) 40 mg IVPUSH NOW ONE Stop: 01/12/20 09:49 Last Admin: 01/12/20 11:51 Dose: Not Given Documented by: Furosemide (Lasix) 40 mg IVPUSH BIDDIURETIC [facility] Last Admin: 01/13/20 08:57 Dose: 40 mg Documented by: Furosemide (Lasix) 40 mg PO BIDDIURETIC [facility] Last Admin: 01/15/20 14:22 Dose: 40 mg Documented by: Furosemide (Lasix) 20 mg IVPUSH NOW ONE Stop: 01/14/20 20:24 Last Admin: 01/14/20 22:06 Dose: 20 mg Documented by: Furosemide (Lasix) 40 mg IVPUSH NOW ONE Stop: 01/15/20 15:51 Last Admin: 01/15/20 16:13 Dose: 40 mg Documented by: Furosemide (Lasix) 40 mg IVPUSH NOW ONE Stop: 01/16/20 08:17 Last Admin: 01/16/20 08:50 Dose: 40 mg Documented by: Gabapentin (Neurontin) 300 mg PO TID [facility] Last Admin: 01/11/20 23:22 Dose: Not Given Documented by: Gabapentin (Neurontin) 300 mg PO TID [facility] Last Admin: 01/12/20 06:13 Dose: 300 mg Documented by: Sodium Chloride (Normal Saline) 1,000 mls @ 999 mls/hr IV .Bolus ONE Stop: 01/10/20 23:00 Last Admin: 01/10/20 22:18 Dose: 999 mls/hr Documented by: Sodium Chloride (Normal Saline) 1,000 mls @ 125 mls/hr IV ASDIRECTED [facility] Last Infusion: 01/11/20 01:52 Dose: 125 mls/hr Documented by: Sodium Chloride (Normal Saline) 500 mls @ 999 mls/hr IV .BOLUS ONE Stop: 01/11/20 01:47 Last Admin: 01/11/20 01:40 Dose: Not Given Documented by: Ceftriaxone Sodium/Dextrose 1 (gm/ Premix) 50 mls @ 100 mls/hr IV ONETIME ONE Stop: 01/11/20 02:09 Last Admin: 01/11/20 01:52 Dose: 100 mls/hr Documented by: Sodium Chloride (Normal Saline) 1,000 mls @ 100 mls/hr IV ASDIRECTED [facility] Last Admin: 01/11/20 13:17 Dose: 125 mls/hr Documented by: Ceftriaxone Sodium/Dextrose 1 (gm/ Premix) 50 mls @ 100 mls/hr IV Q24H [facility] Last Admin: 01/12/20 11:51 Dose: Not Given Documented by: Azithromycin 500 mg/ Sodium (Chloride) 250 mls @ 250 mls/hr IV ONETIME [facility] Last Admin: 01/11/20 03:24 Dose: 250 mls/hr Documented by: Piperacillin Sod/Tazobactam (Sod 3.375 gm/ Sodium Chloride) 100 mls @ 200 mls/hr IV Q6H [facility] Last Admin: 01/12/20 12:21 Dose: Not Given Documented by: Piperacillin Sod/Tazobactam (Sod 3.375 gm/ Sodium Chloride) 100 mls @ 200 mls/hr IV Q6H [facility] Last Admin: 01/16/20 05:50 Dose: 200 mls/hr Documented by: Vancomycin HCl 1.5 gm/ Premix 300 mls @ 200 mls/hr IV Q12H [facility] Last Admin: 01/13/20 13:51 Dose: 200 mls/hr Documented by: Azithromycin 500 mg/ Sodium (Chloride) 250 mls @ 250 mls/hr IV Q24H [facility] Azithromycin 500 mg/ Sodium (Chloride) 250 mls @ 250 mls/hr IV Q24H [facility] Last Admin: 01/12/20 16:29 Dose: Not Given Documented by: Metoprolol Tartrate 50 mg/ (Sodium Chloride) 150 mls @ 150 mls/hr IV BID [facility] Last Admin: 01/13/20 11:00 Dose: Not Given Documented by: Azithromycin 500 mg/ Sodium (Chloride) 250 mls @ 250 mls/hr IV Q24H [facility] Last Admin: 01/15/20 16:17 Dose: 250 mls/hr Documented by: Vancomycin HCl 1.25 gm/ Sodium (Chloride) 250 mls @ 166.667 mls/hr IV Q12H [facility] Last Admin: 01/15/20 06:48 Dose: 166.667 mls/hr Documented by: Sodium Chloride (Normal Saline (Advbag)) Confirm Administered Dose 250 mls @ as directed .ROUTE .STK-MED ONE Stop: 01/15/20 06:38 Last Admin: 01/15/20 07:00 Dose: Not Given Documented by: Insulin Aspart (Novolog) 0 unit SUBCUT TIDAC [facility]; Protocol Last Admin: 01/16/20 12:11 Dose: 1 unit Documented by: Iopamidol (Isovue Multipack-370 (76%)) 100 ml IVPUSH ONETIME STA Stop: 01/15/20 18:18 Last Admin: 01/15/20 18:18 Dose: 100 ml Documented by: Melatonin (Melatonin) 6 mg PO BEDTIME [facility] Last Admin: 01/11/20 21:41 Dose: 6 mg Documented by: Metoprolol Tartrate (Lopressor) 125 mg PO BID [facility] Last Admin: 01/12/20 09:56 Dose: Not Given Documented by: Metoprolol Tartrate (Lopressor) 125 mg PO Q12H [facility] Last Admin: 01/16/20 11:34 Dose: 125 mg Documented by: Morphine Sulfate (Morphine) 1 mg IVPUSH Q6H PRN PRN Reason: Pain Last Admin: 01/16/20 09:03 Dose: 1 mg Documented by: Phenazopyridine HCl (Pyridium) 200 mg PO ONETIME ONE Stop: 01/16/20 08:56 Last Admin: 01/16/20 09:05 Dose: 200 mg Documented by: Potassium Chloride (Klor-Con M20) 40 meq PO ONETIME ONE Stop: 01/14/20 09:29 Last Admin: 01/14/20 10:19 Dose: 40 meq Documented by: Potassium Chloride (Klor-Con M20) 40 meq PO BID@0900,1200 [facility] Stop: 01/15/20 12:01 Last Admin: 01/15/20 12:39 Dose: 40 meq Documented by: Potassium Chloride (Klor-Con M20) 40 meq PO TIDMEALS [facility] Stop: 01/16/20 17:31 Last Admin: 01/16/20 11:46 Dose: 40 meq Documented by: Simvastatin (Zocor) 40 mg PO BEDTIME [facility] Last Admin: 01/11/20 21:41 Dose: 40 mg Documented by: Sodium Chloride (Saline Flush) 10 ml FLUSH ASDIRECTED PRN PRN Reason: Keep Vein Open Sodium Chloride (Saline Flush) 2.5 ml FLUSH ASDIRECTED PRN PRN Reason: Keep Vein Open Tamsulosin HCl (Flomax) 0.8 mg PO DAILY [facility] Last Admin: 01/16/20 08:53 Dose: 0.8 mg Documented by: Vancomycin HCl (Pharmacy To Dose - Vancomycin) 1 dose .XX ASDIRECTED [facility] Vancomycin HCl (Vancomycin) Confirm Administered Dose 1.25 gm .ROUTE .STK-MED ONE Stop: 01/15/20 06:31 Last Admin: 01/15/20 07:00 Dose: Not Given Documented by:
[2020-01-13] MEDS: Metoprolol Tartrate 25 MG Tab PO SCH (12:21)
[2020-01-13] MEDS: Furosemide 40 MG Tab PO SCH (13:45)
[2020-01-13] MEDS: Azithromycin 500 MG in Sodium Chloride 0.9% 250 ML IV SCH (15:35)
[2020-01-14] MEDS: Metoprolol Tartrate 25 MG Tab PO SCH ×3 (00:30→23:49)
[2020-01-14 06:53] LABS: CARBON DIOXIDE,CO2 33.9 mmol/L (21.0-32.0); POTASSIUM,K 3.2 mmol/L (3.5-5.1)
[2020-01-14] MEDS: Piperacillin/Tazobactam 3.375 GM in Sodium Chloride 0.9% 100 ML IV SCH ×4 (07:30→23:49)
[2020-01-14] MEDS: Insulin Aspart 100 Units/ML 3 ML Pen SUBCUT SCH ×3 (07:53→17:17)
[2020-01-14] MEDS: Furosemide 40 MG Tab PO SCH ×2 (08:26→13:25)
[2020-01-14] MEDS ORDERED: Potassium Chloride 20 MEQ Tab.ER PO ONE (09:28)
[2020-01-14] MEDS: Azithromycin 500 MG in Sodium Chloride 0.9% 250 ML IV SCH (15:34)
--- NOTE | 2020-01-14 18:30 | PCM.PN ---
<Jameson Robert - Last Filed: 01/14/20 18:35> - General Info Date of Service: 01/14/20 Subjective Update: Patient states that he feels fine and would like to return to [facility]. Denies fever, chills, nausea, SOB, chest pain. - Review of Systems General: Denies: Fever, Chills Pulmonary: Denies: Shortness of Breath, Pleuritic Chest Pain Cardiovascular: Denies: Chest Pain, Palpitations Gastrointestinal: Denies: Abdominal Pain, Decreased Appetite Genitourinary: Denies: Burning, Pain - Patient Data Vitals - Most Recent: Last Vital Signs Temp 98.6 F 01/14/20 16:00 Pulse 94 01/14/20 16:00 Resp 18 01/14/20 16:00 BP 114/62 01/14/20 16:00 Pulse Ox 92 L 01/14/20 16:00 Weight - Most Recent: 140 kg I&O - Last 24 Hours: Intake & Output 01/14/20 01/14/20 01/14/20 06:59 14:59 22:59 Intake Total 721 767 5298 Output Total 1150 1300 Balance -200 250 -300 Lab Results Last 24 Hours: Laboratory Results - last 24 hr 01/13/20 01/14/20 01/14/20 Range/Units 17:52 00:10 05:55 WBC 5.09 (4.0-11.0) K/uL RBC 3.56 L (4.50-5.90) M/uL Hgb 9.6 L 9.4 L (13.0-17.0) g/dL Hct 31.7 L (38.0-50.0) % MCV 89.0 (80.0-98.0) fL MCH 26.4 L (27.0-32.0) pg MCHC 29.7 L (31.0-37.0) g/dL RDW Std Deviation 54.8 (28.0-62.0) fl RDW Coeff of Yanick 17 H (11.0-15.0) % Plt Count 131 L (150-400) K/uL MPV 9.50 (7.40-12.00) fL Neut % (Auto) 71.7 (48.0-80.0) % Lymph % (Auto) 15.5 L (16.0-40.0) % [place] % (Auto) 6.7 (0.0-15.0) % Eos % (Auto) 5.7 (0.0-7.0) % Baso % (Auto) 0.4 (0.0-1.5) % Neut # (Auto) 3.7 (1.4-5.7) K/uL Lymph # (Auto) 0.8 (0.6-2.4) K/uL [place] # (Auto) 0.3 (0.0-0.8) K/uL Eos # (Auto) 0.3 (0.0-0.7) K/uL Baso # (Auto) 0.0 (0.0-0.1) K/uL Nucleated RBC % 0.0 /100WBC Nucleated RBCs # 0 K/uL Sodium (136-148) mmol/L Potassium (3.5-5.1) mmol/L Chloride (98-107) mmol/L Carbon Dioxide (21.0-32.0) mmol/L BUN (7.0-18.0) mg/dL Creatinine (0.8-1.3) mg/dL Est Cr Clr Drug Dosing mL/min Estimated GFR (MDRD) ml/min Glucose (74-106) mg/dL POC Glucose (60-110) mg/dL Calcium (8.5-10.1) mg/dL Total Bilirubin (0.2-1.0) mg/dL AST (15-37) IU/L ALT (14-63) IU/L Alkaline Phosphatase (46-116) U/L Total Protein (6.4-8.2) g/dL Albumin (3.4-5.0) g/dL Globulin (2.6-4.0) g/dL Albumin/Globulin Ratio (0.9-1.6) Vancomycin Trough 23.7 H (5.0-10.0) ug/mL 01/14/20 01/14/20 01/14/20 Range/Units 05:55 06:30 11:48 WBC (4.0-11.0) K/uL RBC (4.50-5.90) M/uL Hgb (13.0-17.0) g/dL Hct (38.0-50.0) % MCV (80.0-98.0) fL MCH (27.0-32.0) pg MCHC (31.0-37.0) g/dL RDW Std Deviation (28.0-62.0) fl RDW Coeff of Yanick (11.0-15.0) % Plt Count (150-400) K/uL MPV (7.40-12.00) fL Neut % (Auto) (48.0-80.0) % Lymph % (Auto) (16.0-40.0) % [place] % (Auto) (0.0-15.0) % Eos % (Auto) (0.0-7.0) % Baso % (Auto) (0.0-1.5) % Neut # (Auto) (1.4-5.7) K/uL Lymph # (Auto) (0.6-2.4) K/uL [place] # (Auto) (0.0-0.8) K/uL Eos # (Auto) (0.0-0.7) K/uL Baso # (Auto) (0.0-0.1) K/uL Nucleated RBC % /100WBC Nucleated RBCs # K/uL Sodium 142 (136-148) mmol/L Potassium 3.2 L (3.5-5.1) mmol/L Chloride 103 (98-107) mmol/L Carbon Dioxide 33.9 H (21.0-32.0) mmol/L BUN 29 H (7.0-18.0) mg/dL Creatinine 1.3 (0.8-1.3) mg/dL Est Cr Clr Drug Dosing 50.94 mL/min Estimated GFR (MDRD) 52.9 ml/min Glucose 126 H (74-106) mg/dL POC Glucose 127 H 180 H (60-110) mg/dL Calcium 8.4 L (8.5-10.1) mg/dL Total Bilirubin 0.5 (0.2-1.0) mg/dL AST 16 (15-37) IU/L ALT 12 L (14-63) IU/L Alkaline Phosphatase 80 (46-116) U/L Total Protein 6.9 (6.4-8.2) g/dL Albumin 2.7 L (3.4-5.0) g/dL Globulin 4.2 H (2.6-4.0) g/dL Albumin/Globulin Ratio 0.6 L (0.9-1.6) Vancomycin Trough (5.0-10.0) ug/mL 01/14/20 Range/Units 17:17 WBC (4.0-11.0) K/uL RBC (4.50-5.90) M/uL Hgb (13.0-17.0) g/dL Hct (38.0-50.0) % MCV (80.0-98.0) fL MCH (27.0-32.0) pg MCHC (31.0-37.0) g/dL RDW Std Deviation (28.0-62.0) fl RDW Coeff of Yanick (11.0-15.0) % Plt Count (150-400) K/uL MPV (7.40-12.00) fL Neut % (Auto) (48.0-80.0) % Lymph % (Auto) (16.0-40.0) % [place] % (Auto) (0.0-15.0) % Eos % (Auto) (0.0-7.0) % Baso % (Auto) (0.0-1.5) % Neut # (Auto) (1.4-5.7) K/uL Lymph # (Auto) (0.6-2.4) K/uL [place] # (Auto) (0.0-0.8) K/uL Eos # (Auto) (0.0-0.7) K/uL Baso # (Auto) (0.0-0.1) K/uL Nucleated RBC % /100WBC Nucleated RBCs # K/uL Sodium (136-148) mmol/L Potassium (3.5-5.1) mmol/L Chloride (98-107) mmol/L Carbon Dioxide (21.0-32.0) mmol/L BUN (7.0-18.0) mg/dL Creatinine (0.8-1.3) mg/dL Est Cr Clr Drug Dosing mL/min Estimated GFR (MDRD) ml/min Glucose (74-106) mg/dL POC Glucose 130 H (60-110) mg/dL Calcium (8.5-10.1) mg/dL Total Bilirubin (0.2-1.0) mg/dL AST (15-37) IU/L ALT (14-63) IU/L Alkaline Phosphatase (46-116) U/L Total Protein (6.4-8.2) g/dL Albumin (3.4-5.0) g/dL Globulin (2.6-4.0) g/dL Albumin/Globulin Ratio (0.9-1.6) Vancomycin Trough (5.0-10.0) ug/mL Felipe Results Last 24 Hours: Microbiology 01/12/20 10:32 Aerobic Blood Culture - Preliminary Blood - Venous - Lab Draw NO GROWTH AFTER 2 DAYS Anaerobic Blood Culture - Preliminary NO GROWTH AFTER 2 DAYS 01/12/20 10:20 Aerobic Blood Culture - Preliminary Blood - Venous NO GROWTH AFTER 2 DAYS Anaerobic Blood Culture - Preliminary NO GROWTH AFTER 2 DAYS 01/10/20 22:24 Aerobic Blood Culture - Preliminary Blood - Venous - Lab Draw Anaerobic Blood Culture - Preliminary NO GROWTH AFTER 3 DAYS 01/10/20 22:15 Aerobic Blood Culture - Preliminary Blood - Venous NO GROWTH AFTER 3 DAYS Anaerobic Blood Culture - Preliminary NO GROWTH AFTER 3 DAYS Med Orders - Current: Current Medications Acetaminophen (Tylenol Extra Strength) 500 mg PO Q6H PRN PRN Reason: Pain Last Admin: 01/11/20 09:04 Dose: 500 mg Documented by: Albuterol/Ipratropium (Duoneb 3.0-0.5 Mg/3 Ml) 3 ml NEB Q4HRRT PRN PRN Reason: Shortness Of Breath/wheezing Diltiazem HCl (Diltiazem) 20 mg IVPUSH Q2HR PRN PRN Reason: Tachycardia Last Admin: 01/11/20 23:14 Dose: 20 mg Documented by: Furosemide (Lasix) 40 mg PO BIDDIURETIC MARIANNA Last Admin: 01/14/20 13:25 Dose: 40 mg Documented by: Piperacillin Sod/Tazobactam (Sod 3.375 gm/ Sodium Chloride) 100 mls @ 200 mls/hr IV Q6H [facility] Last Admin: 01/14/20 12:14 Dose: 200 mls/hr Documented by: Azithromycin 500 mg/ Sodium (Chloride) 250 mls @ 250 mls/hr IV Q24H [facility] Last Admin: 01/14/20 15:34 Dose: 250 mls/hr Documented by: Vancomycin HCl 1.25 gm/ Sodium (Chloride) 250 mls @ 166.667 mls/hr IV Q12H [facility] Last Admin: 01/14/20 17:11 Dose: 166.667 mls/hr Documented by: Insulin Aspart (Novolog) 0 unit SUBCUT TIDAC [facility]; Protocol Last Admin: 01/14/20 17:17 Dose: Not Given Documented by: Metoprolol Tartrate (Lopressor) 125 mg PO Q12H [facility] Last Admin: 01/14/20 11:51 Dose: 125 mg Documented by: Sodium Chloride (Saline Flush) 10 ml FLUSH ASDIRECTED PRN PRN Reason: Keep Vein Open Sodium Chloride (Saline Flush) 2.5 ml FLUSH ASDIRECTED PRN PRN Reason: Keep Vein Open Vancomycin HCl (Pharmacy To Dose - Vancomycin) 1 dose .XX ASDIRECTED [facility] Discontinued Medications Apixaban (Eliquis) 5 mg PO BID [facility] Last Admin: 01/12/20 09:57 Dose: Not Given Documented by: Finasteride (Proscar) 5 mg PO DAILY [facility] Last Admin: 01/12/20 09:57 Dose: Not Given Documented by: Furosemide (Lasix) 80 mg PO DAILY [facility] Last Admin: 01/12/20 09:56 Dose: Not Given Documented by: Furosemide (Lasix) 40 mg IVPUSH NOW ONE Stop: 01/12/20 09:49 Last Admin: 01/12/20 11:51 Dose: Not Given Documented by: Furosemide (Lasix) 40 mg IVPUSH BIDDIURETIC [facility] Last Admin: 01/13/20 08:57 Dose: 40 mg Documented by: Gabapentin (Neurontin) 300 mg PO TID [facility] Last Admin: 01/11/20 23:22 Dose: Not Given Documented by: Gabapentin (Neurontin) 300 mg PO TID [facility] Last Admin: 01/12/20 06:13 Dose: 300 mg Documented by: Sodium Chloride (Normal Saline) 1,000 mls @ 999 mls/hr IV .Bolus ONE Stop: 01/10/20 23:00 Last Admin: 01/10/20 22:18 Dose: 999 mls/hr Documented by: Sodium Chloride (Normal Saline) 1,000 mls @ 125 mls/hr IV ASDIRECTED [facility] Last Infusion: 01/11/20 01:52 Dose: 125 mls/hr Documented by: Sodium Chloride (Normal Saline) 500 mls @ 999 mls/hr IV .BOLUS ONE Stop: 01/11/20 01:47 Last Admin: 01/11/20 01:40 Dose: Not Given Documented by: Ceftriaxone Sodium/Dextrose 1 (gm/ Premix) 50 mls @ 100 mls/hr IV ONETIME ONE Stop: 01/11/20 02:09 Last Admin: 01/11/20 01:52 Dose: 100 mls/hr Documented by: Sodium Chloride (Normal Saline) 1,000 mls @ 100 mls/hr IV ASDIRECTED [facility] Last Admin: 01/11/20 13:17 Dose: 125 mls/hr Documented by: Ceftriaxone Sodium/Dextrose 1 (gm/ Premix) 50 mls @ 100 mls/hr IV Q24H [facility] Last Admin: 01/12/20 11:51 Dose: Not Given Documented by: Azithromycin 500 mg/ Sodium (Chloride) 250 mls @ 250 mls/hr IV ONETIME [facility] Last Admin: 01/11/20 03:24 Dose: 250 mls/hr Documented by: Piperacillin Sod/Tazobactam (Sod 3.375 gm/ Sodium Chloride) 100 mls @ 200 mls/hr IV Q6H [facility] Last Admin: 01/12/20 12:21 Dose: Not Given Documented by: Vancomycin HCl 1.5 gm/ Premix 300 mls @ 200 mls/hr IV Q12H [facility] Last Admin: 01/13/20 13:51 Dose: 200 mls/hr Documented by: Azithromycin 500 mg/ Sodium (Chloride) 250 mls @ 250 mls/hr IV Q24H [facility] Azithromycin 500 mg/ Sodium (Chloride) 250 mls @ 250 mls/hr IV Q24H [facility] Last Admin: 01/12/20 16:29 Dose: Not Given Documented by: Metoprolol Tartrate 50 mg/ (Sodium Chloride) 150 mls @ 150 mls/hr IV BID [facility] Last Admin: 01/13/20 11:00 Dose: Not Given Documented by: Melatonin (Melatonin) 6 mg PO BEDTIME [facility] Last Admin: 01/11/20 21:41 Dose: 6 mg Documented by: Metoprolol Tartrate (Lopressor) 125 mg PO BID [facility] Last Admin: 01/12/20 09:56 Dose: Not Given Documented by: Potassium Chloride (Klor-Con M20) 40 meq PO ONETIME ONE Stop: 01/14/20 09:29 Last Admin: 01/14/20 10:19 Dose: 40 meq Documented by: Simvastatin (Zocor) 40 mg PO BEDTIME [facility] Last Admin: 01/11/20 21:41 Dose: 40 mg Documented by: - Exam General: Alert Lungs: Decreased Breath Sounds, Rales. No: Wheezing Cardiovascular: Regular Rate, Irregular Rhythm GI/Abdominal Exam: Soft, Non-Tender, No Distention Extremities: Pedal Edema, Other (statis dermatitis bilaterally lower extremities). No: Joint Swelling Sepsis Event Note - Evaluation Sepsis Screening Result: No Definite Risk - Focused Exam Vital Signs: Vital Signs Temp Pulse Pulse Resp BP BP Pulse Ox 01/14/20 16:00 98.6 F 94 18 114/62 92 L 01/14/20 12:00 98.2 F 96 18 106/51 L 94 L 01/14/20 11:51 94 122/66 01/14/20 08:00 97.6 F 94 18 122/66 94 L - Problem List Review Problem List Initiated/Reviewed/Updated: Yes - My Orders Last 24 Hours: My Active Orders 01/14/20 11:20 Chest Physiotherapy [RT Chest Physiotherapy] [RC] ASDIRECTED 01/14/20 12:46 Abdomen Pelvis w Cont [CT] Routine CTA Chest W WO Contrast [Ang Chest] [CT] Routine - Plan Plan:: Pneumonia- Continue Vancomycin and Zosyn. Continued Azithromycin 500mg Q24, Dunoneb, O2 support to maintain o2% sat above 90%. UTI secondary to proteus Mirabilis : Continue Vancomycin and Zosyn. Will do continuous Ramirez irrigation, bladder scan as needed to evaluate for urinary retention PMH HTN, CHF, A-Fib - Eliquis held due to hematuria and bleeding after catheter changes, metoprolol 125 BID, Lasix PO 40mg BID Diabetes- Insulin SS, Diabetic Diet WAQAR- BiPAP at night and during the day if needed <Paula Oneill - Last Filed: 01/18/20 19:59> - General Info Subjective Update: I have seen and evaluated the patient and agree with the residents note unless specified in my note - Patient Data Vitals - Most Recent: Last Vital Signs Temp 36.5 C 01/16/20 11:05 Pulse 93 01/16/20 11:34 Resp 16 01/16/20 11:05 BP 144/79 H 01/16/20 11:34 Pulse Ox 97 01/16/20 11:05 Med Orders - Current: Current Medications Discontinued Medications Acetaminophen (Tylenol Extra Strength) 500 mg PO Q6H PRN PRN Reason: Pain Last Admin: 01/11/20 09:04 Dose: 500 mg Documented by: Albuterol/Ipratropium (Duoneb 3.0-0.5 Mg/3 Ml) 3 ml NEB Q4HRRT PRN PRN Reason: Shortness Of Breath/wheezing Last Admin: 01/15/20 06:35 Dose: 3 ml Documented by: Apixaban (Eliquis) 5 mg PO BID [facility] Last Admin: 01/12/20 09:57 Dose: Not Given Documented by: Diltiazem HCl (Diltiazem) 20 mg IVPUSH Q2HR PRN PRN Reason: Tachycardia Last Admin: 01/11/20 23:14 Dose: 20 mg Documented by: Finasteride (Proscar) 5 mg PO DAILY [facility] Last Admin: 01/12/20 09:57 Dose: Not Given Documented by: Finasteride (Proscar) 5 mg PO DAILY [facility] Last Admin: 01/16/20 08:51 Dose: 5 mg Documented by: Furosemide (Lasix) 80 mg PO DAILY [facility] Last Admin: 01/12/20 09:56 Dose: Not Given Documented by: Furosemide (Lasix) 40 mg IVPUSH NOW ONE Stop: 01/12/20 09:49 Last Admin: 01/12/20 11:51 Dose: Not Given Documented by: Furosemide (Lasix) 40 mg IVPUSH BIDDIURETIC [facility] Last Admin: 01/13/20 08:57 Dose: 40 mg Documented by: Furosemide (Lasix) 40 mg PO BIDDIURETIC [facility] Last Admin: 01/15/20 14:22 Dose: 40 mg Documented by: Furosemide (Lasix) 20 mg IVPUSH NOW ONE Stop: 01/14/20 20:24 Last Admin: 01/14/20 22:06 Dose: 20 mg Documented by: Furosemide (Lasix) 40 mg IVPUSH NOW ONE Stop: 01/15/20 15:51 Last Admin: 01/15/20 16:13 Dose: 40 mg Documented by: Furosemide (Lasix) 40 mg IVPUSH NOW ONE Stop: 01/16/20 08:17 Last Admin: 01/16/20 08:50 Dose: 40 mg Documented by: Gabapentin (Neurontin) 300 mg PO TID [facility] Last Admin: 01/11/20 23:22 Dose: Not Given Documented by: Gabapentin (Neurontin) 300 mg PO TID [facility] Last Admin: 01/12/20 06:13 Dose: 300 mg Documented by: Sodium Chloride (Normal Saline) 1,000 mls @ 999 mls/hr IV .Bolus ONE Stop: 01/10/20 23:00 Last Admin: 01/10/20 22:18 Dose: 999 mls/hr Documented by: Sodium Chloride (Normal Saline) 1,000 mls @ 125 mls/hr IV ASDIRECTED [facility] Last Infusion: 01/11/20 01:52 Dose: 125 mls/hr Documented by: Sodium Chloride (Normal Saline) 500 mls @ 999 mls/hr IV .BOLUS ONE Stop: 01/11/20 01:47 Last Admin: 01/11/20 01:40 Dose: Not Given Documented by: Ceftriaxone Sodium/Dextrose 1 (gm/ Premix) 50 mls @ 100 mls/hr IV ONETIME ONE Stop: 01/11/20 02:09 Last Admin: 01/11/20 01:52 Dose: 100 mls/hr Documented by: Sodium Chloride (Normal Saline) 1,000 mls @ 100 mls/hr IV ASDIRECTED [facility] Last Admin: 01/11/20 13:17 Dose: 125 mls/hr Documented by: Ceftriaxone Sodium/Dextrose 1 (gm/ Premix) 50 mls @ 100 mls/hr IV Q24H [facility] Last Admin: 01/12/20 11:51 Dose: Not Given Documented by: Azithromycin 500 mg/ Sodium (Chloride) 250 mls @ 250 mls/hr IV ONETIME [facility] Last Admin: 01/11/20 03:24 Dose: 250 mls/hr Documented by: Piperacillin Sod/Tazobactam (Sod 3.375 gm/ Sodium Chloride) 100 mls @ 200 mls/hr IV Q6H [facility] Last Admin: 01/12/20 12:21 Dose: Not Given Documented by: Piperacillin Sod/Tazobactam (Sod 3.375 gm/ Sodium Chloride) 100 mls @ 200 mls/hr IV Q6H [facility] Last Admin: 01/16/20 05:50 Dose: 200 mls/hr Documented by: Vancomycin HCl 1.5 gm/ Premix 300 mls @ 200 mls/hr IV Q12H [facility] Last Admin: 01/13/20 13:51 Dose: 200 mls/hr Documented by: Azithromycin 500 mg/ Sodium (Chloride) 250 mls @ 250 mls/hr IV Q24H [facility] Azithromycin 500 mg/ Sodium (Chloride) 250 mls @ 250 mls/hr IV Q24H [facility] Last Admin: 01/12/20 16:29 Dose: Not Given Documented by: Metoprolol Tartrate 50 mg/ (Sodium Chloride) 150 mls @ 150 mls/hr IV BID [facility] Last Admin: 01/13/20 11:00 Dose: Not Given Documented by: Azithromycin 500 mg/ Sodium (Chloride) 250 mls @ 250 mls/hr IV Q24H [facility] Last Admin: 01/15/20 16:17 Dose: 250 mls/hr Documented by: Vancomycin HCl 1.25 gm/ Sodium (Chloride) 250 mls @ 166.667 mls/hr IV Q12H [facility] Last Admin: 01/15/20 06:48 Dose: 166.667 mls/hr Documented by: Sodium Chloride (Normal Saline (Advbag)) Confirm Administered Dose 250 mls @ as directed .ROUTE .STK-MED ONE Stop: 01/15/20 06:38 Last Admin: 01/15/20 07:00 Dose: Not Given Documented by: Insulin Aspart (Novolog) 0 unit SUBCUT TIDAC [facility]; Protocol Last Admin: 01/16/20 12:11 Dose: 1 unit Documented by: Iopamidol (Isovue Multipack-370 (76%)) 100 ml IVPUSH ONETIME [facility] Stop: 01/15/20 18:18 Last Admin: 01/15/20 18:18 Dose: 100 ml Documented by: Melatonin (Melatonin) 6 mg PO BEDTIME [facility] Last Admin: 01/11/20 21:41 Dose: 6 mg Documented by: Metoprolol Tartrate (Lopressor) 125 mg PO BID [facility] Last Admin: 01/12/20 09:56 Dose: Not Given Documented by: Metoprolol Tartrate (Lopressor) 125 mg PO Q12H [facility] Last Admin: 01/16/20 11:34 Dose: 125 mg Documented by: Morphine Sulfate (Morphine) 1 mg IVPUSH Q6H PRN PRN Reason: Pain Last Admin: 01/16/20 09:03 Dose: 1 mg Documented by: Phenazopyridine HCl (Pyridium) 200 mg PO ONETIME ONE Stop: 01/16/20 08:56 Last Admin: 01/16/20 09:05 Dose: 200 mg Documented by: Potassium Chloride (Klor-Con M20) 40 meq PO ONETIME ONE Stop: 01/14/20 09:29 Last Admin: 01/14/20 10:19 Dose: 40 meq Documented by: Potassium Chloride (Klor-Con M20) 40 meq PO BID@0900,1200 [facility] Stop: 01/15/20 12:01 Last Admin: 01/15/20 12:39 Dose: 40 meq Documented by: Potassium Chloride (Klor-Con M20) 40 meq PO TIDMEALS [facility] Stop: 01/16/20 17:31 Last Admin: 01/16/20 11:46 Dose: 40 meq Documented by: Simvastatin (Zocor) 40 mg PO BEDTIME [facility] Last Admin: 01/11/20 21:41 Dose: 40 mg Documented by: Sodium Chloride (Saline Flush) 10 ml FLUSH ASDIRECTED PRN PRN Reason: Keep Vein Open Sodium Chloride (Saline Flush) 2.5 ml FLUSH ASDIRECTED PRN PRN Reason: Keep Vein Open Tamsulosin HCl (Flomax) 0.8 mg PO DAILY [facility] Last Admin: 01/16/20 08:53 Dose: 0.8 mg Documented by: Vancomycin HCl (Pharmacy To Dose - Vancomycin) 1 dose .XX ASDIRECTED [facility] Vancomycin HCl (Vancomycin) Confirm Administered Dose 1.25 gm .ROUTE .STK-MED ONE Stop: 01/15/20 06:31 Last Admin: 01/15/20 07:00 Dose: Not Given Documented by:
[2020-01-14] MEDS: Tamsulosin 0.4 MG Cap.ER PO SCH (20:05)
[2020-01-14] MEDS: Finasteride 5 MG Tab PO SCH (20:06)
[2020-01-14] MEDS ORDERED: Furosemide 40 MG/4 ML VIAL IVPUSH ONE (20:23)
[2020-01-15] MEDS: Piperacillin/Tazobactam 3.375 GM in Sodium Chloride 0.9% 100 ML IV SCH ×4 (05:33→23:58)
[2020-01-15 06:26] LABS: CARBON DIOXIDE,CO2 34.6 mmol/L (21.0-32.0); POTASSIUM,K 3.2 mmol/L (3.5-5.1)
[2020-01-15] MEDS ORDERED: Vancomycin 1.25 GM SDV ONE (06:30)
[2020-01-15] MEDS ORDERED: Sodium Chloride 0.9% 250 ML ONE (06:37)
[2020-01-15] MEDS: Insulin Aspart 100 Units/ML 3 ML Pen SUBCUT SCH ×3 (07:00→18:20)
[2020-01-15] MEDS: Finasteride 5 MG Tab PO SCH (09:00)
[2020-01-15] MEDS: Furosemide 40 MG Tab PO SCH ×2 (09:00→14:22)
[2020-01-15] MEDS: Tamsulosin 0.4 MG Cap.ER PO SCH (09:01)
[2020-01-15] MEDS: Potassium Chloride 20 MEQ Tab.ER PO SCH ×2 (09:02→12:39)
--- NOTE | 2020-01-15 11:25 | PCM.PN ---
- General Info Date of Service: 01/15/20 Admission Dx/Problem (Free Text): Admission Diagnosis/Problem Admission Diagnosis/Problem UTI, Urinary tract infectious disease, hypoxia Subjective Update: Confused intermittently today. Second rounds he was more alert and oriented. No chest pain. Reports breathing is ok. reports he will be ok with Chest CT today. No pain currently. Functional Status: Reports: Pain Controlled, Tolerating Diet - Review of Systems General: Reports: Fatigue, Malaise HEENT: Reports: No Symptoms Pulmonary: Reports: Shortness of Breath, Cough (started coughing with water intake. ) Cardiovascular: Reports: No Symptoms. Denies: Chest Pain Gastrointestinal: Reports: No Symptoms. Denies: Abdominal Pain, Nausea, Vomiting Genitourinary: Reports: No Symptoms. Denies: Dysuria, Frequency Musculoskeletal: Reports: No Symptoms Skin: Reports: No Symptoms Neurological: Reports: Confusion Psychiatric: Reports: No Symptoms - Patient Data Vitals - Most Recent: Last Vital Signs Temp 97.6 F 01/15/20 08:00 Pulse 78 01/15/20 08:00 Resp 20 01/15/20 08:00 BP 113/65 01/15/20 08:00 Pulse Ox 90 L 01/15/20 08:00 Weight - Most Recent: 139 kg I&O - Last 24 Hours: Intake & Output 01/14/20 01/15/20 01/15/20 22:59 06:59 14:59 Intake Total 1000 Output Total 1300 Balance -300 Lab Results Last 24 Hours: Laboratory Results - last 24 hr 01/14/20 01/14/20 01/15/20 Range/Units 11:48 17:17 05:30 WBC 4.23 (4.0-11.0) K/uL RBC 3.81 L (4.50-5.90) M/uL Hgb 10.1 L (13.0-17.0) g/dL Hct 33.8 L (38.0-50.0) % MCV 88.7 (80.0-98.0) fL MCH 26.5 L (27.0-32.0) pg MCHC 29.9 L (31.0-37.0) g/dL RDW Std Deviation 55.6 (28.0-62.0) fl RDW Coeff of [place] 17 H (11.0-15.0) % Plt Count 124 L (150-400) K/uL MPV 9.20 (7.40-12.00) fL Neut % (Auto) 68.3 (48.0-80.0) % Lymph % (Auto) 18.7 (16.0-40.0) % [place] % (Auto) 9.0 (0.0-15.0) % Eos % (Auto) 3.5 (0.0-7.0) % Baso % (Auto) 0.5 (0.0-1.5) % Neut # (Auto) 2.9 (1.4-5.7) K/uL Lymph # (Auto) 0.8 (0.6-2.4) K/uL [place] # (Auto) 0.4 (0.0-0.8) K/uL Eos # (Auto) 0.2 (0.0-0.7) K/uL Baso # (Auto) 0.0 (0.0-0.1) K/uL Nucleated RBC % 0.0 /100WBC Nucleated RBCs # 0 K/uL Sodium (136-148) mmol/L Potassium (3.5-5.1) mmol/L Chloride (98-107) mmol/L Carbon Dioxide (21.0-32.0) mmol/L BUN (7.0-18.0) mg/dL Creatinine (0.8-1.3) mg/dL Est Cr Clr Drug Dosing mL/min Estimated GFR (MDRD) ml/min Glucose (74-106) mg/dL POC Glucose 180 H 130 H (60-110) mg/dL Calcium (8.5-10.1) mg/dL Magnesium (1.8-2.4) mg/dL Total Bilirubin (0.2-1.0) mg/dL AST (15-37) IU/L ALT (14-63) IU/L Alkaline Phosphatase (46-116) U/L Total Protein (6.4-8.2) g/dL Albumin (3.4-5.0) g/dL Globulin (2.6-4.0) g/dL Albumin/Globulin Ratio (0.9-1.6) 01/15/20 01/15/20 01/15/20 Range/Units 05:30 05:30 06:26 WBC (4.0-11.0) K/uL RBC (4.50-5.90) M/uL Hgb (13.0-17.0) g/dL Hct (38.0-50.0) % MCV (80.0-98.0) fL MCH (27.0-32.0) pg MCHC (31.0-37.0) g/dL RDW Std Deviation (28.0-62.0) fl RDW Coeff of [place] (11.0-15.0) % Plt Count (150-400) K/uL MPV (7.40-12.00) fL Neut % (Auto) (48.0-80.0) % Lymph % (Auto) (16.0-40.0) % [place] % (Auto) (0.0-15.0) % Eos % (Auto) (0.0-7.0) % Baso % (Auto) (0.0-1.5) % Neut # (Auto) (1.4-5.7) K/uL Lymph # (Auto) (0.6-2.4) K/uL [place] # (Auto) (0.0-0.8) K/uL Eos # (Auto) (0.0-0.7) K/uL Baso # (Auto) (0.0-0.1) K/uL Nucleated RBC % /100WBC Nucleated RBCs # K/uL Sodium 146 (136-148) mmol/L Potassium 3.2 L (3.5-5.1) mmol/L Chloride 105 (98-107) mmol/L Carbon Dioxide 34.6 H (21.0-32.0) mmol/L BUN 21 H (7.0-18.0) mg/dL Creatinine 1.2 (0.8-1.3) mg/dL Est Cr Clr Drug Dosing 55.20 mL/min Estimated GFR (MDRD) 58.0 ml/min Glucose 119 H (74-106) mg/dL POC Glucose 127 H (60-110) mg/dL Calcium 8.8 (8.5-10.1) mg/dL Magnesium 1.9 (1.8-2.4) mg/dL Total Bilirubin 0.4 (0.2-1.0) mg/dL AST 15 (15-37) IU/L ALT 9 L (14-63) IU/L Alkaline Phosphatase 78 (46-116) U/L Total Protein 7.0 (6.4-8.2) g/dL Albumin 2.6 L (3.4-5.0) g/dL Globulin 4.4 H (2.6-4.0) g/dL Albumin/Globulin Ratio 0.6 L (0.9-1.6) Felipe Results Last 24 Hours: Microbiology 01/12/20 10:32 Aerobic Blood Culture - Preliminary Blood - Venous - Lab Draw NO GROWTH AFTER 3 DAYS Anaerobic Blood Culture - Preliminary NO GROWTH AFTER 3 DAYS 01/12/20 10:20 Aerobic Blood Culture - Preliminary Blood - Venous NO GROWTH AFTER 3 DAYS Anaerobic Blood Culture - Preliminary NO GROWTH AFTER 3 DAYS 01/10/20 22:24 Aerobic Blood Culture - Final Blood - Venous - Lab Draw Anaerobic Blood Culture - Preliminary NO GROWTH AFTER 4 DAYS 01/10/20 22:15 Aerobic Blood Culture - Preliminary Blood - Venous NO GROWTH AFTER 4 DAYS Anaerobic Blood Culture - Preliminary NO GROWTH AFTER 4 DAYS Med Orders - Current: Current Medications Acetaminophen (Tylenol Extra Strength) 500 mg PO Q6H PRN PRN Reason: Pain Last Admin: 01/11/20 09:04 Dose: 500 mg Documented by: Albuterol/Ipratropium (Duoneb 3.0-0.5 Mg/3 Ml) 3 ml NEB Q4HRRT PRN PRN Reason: Shortness Of Breath/wheezing Last Admin: 01/15/20 06:35 Dose: 3 ml Documented by: Diltiazem HCl (Diltiazem) 20 mg IVPUSH Q2HR PRN PRN Reason: Tachycardia Last Admin: 01/11/20 23:14 Dose: 20 mg Documented by: Finasteride (Proscar) 5 mg PO DAILY MARIANNA Last Admin: 01/15/20 09:00 Dose: 5 mg Documented by: Furosemide (Lasix) 40 mg PO BIDDIURETIC MARIANNA Last Admin: 01/15/20 09:00 Dose: 40 mg Documented by: Piperacillin Sod/Tazobactam (Sod 3.375 gm/ Sodium Chloride) 100 mls @ 200 mls/hr IV Q6H MARIANNA Last Admin: 01/15/20 05:33 Dose: 200 mls/hr Documented by: Azithromycin 500 mg/ Sodium (Chloride) 250 mls @ 250 mls/hr IV Q24H MARIANNA Last Admin: 01/14/20 15:34 Dose: 250 mls/hr Documented by: Vancomycin HCl 1.25 gm/ Sodium (Chloride) 250 mls @ 166.667 mls/hr IV Q12H [facility] Last Admin: 01/15/20 06:48 Dose: 166.667 mls/hr Documented by: Insulin Aspart (Novolog) 0 unit SUBCUT TIDAC [facility]; Protocol Last Admin: 01/15/20 07:00 Dose: Not Given Documented by: Metoprolol Tartrate (Lopressor) 125 mg PO Q12H [facility] Last Admin: 01/14/20 23:49 Dose: 125 mg Documented by: Potassium Chloride (Klor-Con M20) 40 meq PO BID@0900,1200 [facility] Stop: 01/15/20 12:01 Last Admin: 01/15/20 09:02 Dose: 40 meq Documented by: Sodium Chloride (Saline Flush) 10 ml FLUSH ASDIRECTED PRN PRN Reason: Keep Vein Open Sodium Chloride (Saline Flush) 2.5 ml FLUSH ASDIRECTED PRN PRN Reason: Keep Vein Open Tamsulosin HCl (Flomax) 0.8 mg PO DAILY [facility] Last Admin: 01/15/20 09:01 Dose: 0.8 mg Documented by: Vancomycin HCl (Pharmacy To Dose - Vancomycin) 1 dose .XX ASDIRECTED [facility] Discontinued Medications Apixaban (Eliquis) 5 mg PO BID [facility] Last Admin: 01/12/20 09:57 Dose: Not Given Documented by: Finasteride (Proscar) 5 mg PO DAILY [facility] Last Admin: 01/12/20 09:57 Dose: Not Given Documented by: Furosemide (Lasix) 80 mg PO DAILY [facility] Last Admin: 01/12/20 09:56 Dose: Not Given Documented by: Furosemide (Lasix) 40 mg IVPUSH NOW ONE Stop: 01/12/20 09:49 Last Admin: 01/12/20 11:51 Dose: Not Given Documented by: Furosemide (Lasix) 40 mg IVPUSH BIDDIURETIC [facility] Last Admin: 01/13/20 08:57 Dose: 40 mg Documented by: Furosemide (Lasix) 20 mg IVPUSH NOW ONE Stop: 01/14/20 20:24 Last Admin: 01/14/20 22:06 Dose: 20 mg Documented by: Gabapentin (Neurontin) 300 mg PO TID [facility] Last Admin: 01/11/20 23:22 Dose: Not Given Documented by: Gabapentin (Neurontin) 300 mg PO TID [facility] Last Admin: 01/12/20 06:13 Dose: 300 mg Documented by: Sodium Chloride (Normal Saline) 1,000 mls @ 999 mls/hr IV .Bolus ONE Stop: 01/10/20 23:00 Last Admin: 01/10/20 22:18 Dose: 999 mls/hr Documented by: Sodium Chloride (Normal Saline) 1,000 mls @ 125 mls/hr IV ASDIRECTED [facility] Last Infusion: 01/11/20 01:52 Dose: 125 mls/hr Documented by: Sodium Chloride (Normal Saline) 500 mls @ 999 mls/hr IV .BOLUS ONE Stop: 01/11/20 01:47 Last Admin: 01/11/20 01:40 Dose: Not Given Documented by: Ceftriaxone Sodium/Dextrose 1 (gm/ Premix) 50 mls @ 100 mls/hr IV ONETIME ONE Stop: 01/11/20 02:09 Last Admin: 01/11/20 01:52 Dose: 100 mls/hr Documented by: Sodium Chloride (Normal Saline) 1,000 mls @ 100 mls/hr IV ASDIRECTED [facility] Last Admin: 01/11/20 13:17 Dose: 125 mls/hr Documented by: Ceftriaxone Sodium/Dextrose 1 (gm/ Premix) 50 mls @ 100 mls/hr IV Q24H [facility] Last Admin: 01/12/20 11:51 Dose: Not Given Documented by: Azithromycin 500 mg/ Sodium (Chloride) 250 mls @ 250 mls/hr IV ONETIME [facility] Last Admin: 01/11/20 03:24 Dose: 250 mls/hr Documented by: Piperacillin Sod/Tazobactam (Sod 3.375 gm/ Sodium Chloride) 100 mls @ 200 mls/hr IV Q6H [facility] Last Admin: 01/12/20 12:21 Dose: Not Given Documented by: Vancomycin HCl 1.5 gm/ Premix 300 mls @ 200 mls/hr IV Q12H [facility] Last Admin: 01/13/20 13:51 Dose: 200 mls/hr Documented by: Azithromycin 500 mg/ Sodium (Chloride) 250 mls @ 250 mls/hr IV Q24H [facility] Azithromycin 500 mg/ Sodium (Chloride) 250 mls @ 250 mls/hr IV Q24H [facility] Last Admin: 01/12/20 16:29 Dose: Not Given Documented by: Metoprolol Tartrate 50 mg/ (Sodium Chloride) 150 mls @ 150 mls/hr IV BID [facility] Last Admin: 01/13/20 11:00 Dose: Not Given Documented by: Sodium Chloride (Normal Saline (Advbag)) Confirm Administered Dose 250 mls @ as directed .ROUTE .STK-MED ONE Stop: 01/15/20 06:38 Last Admin: 01/15/20 07:00 Dose: Not Given Documented by: Melatonin (Melatonin) 6 mg PO BEDTIME [facility] Last Admin: 01/11/20 21:41 Dose: 6 mg Documented by: Metoprolol Tartrate (Lopressor) 125 mg PO BID [facility] Last Admin: 01/12/20 09:56 Dose: Not Given Documented by: Potassium Chloride (Klor-Con M20) 40 meq PO ONETIME ONE Stop: 01/14/20 09:29 Last Admin: 01/14/20 10:19 Dose: 40 meq Documented by: Simvastatin (Zocor) 40 mg PO BEDTIME [facility] Last Admin: 01/11/20 21:41 Dose: 40 mg Documented by: Vancomycin HCl (Vancomycin) Confirm Administered Dose 1.25 gm .ROUTE .[facility] ONE Stop: 01/15/20 06:31 Last Admin: 01/15/20 07:00 Dose: Not Given Documented by: - Exam Quality Assessment: Supplemental Oxygen, DVT Prophylaxis General: Alert, Oriented (intermittenly), Cooperative, No Acute Distress Lungs: Decreased Breath Sounds (throughout) Cardiovascular: Regular Rate, Regular Rhythm GI/Abdominal Exam: Normal Bowel Sounds, Soft, Non-Tender, Other (obese abdomen) Extremities: Normal Inspection, Normal Range of Motion, Non-Tender, Pedal Edema (+1 pitting edema BLE) Wound/Incisions: Drainage (noted to sores on legs. No infection. ) Neurological: No New Focal Deficit Psy/Mental Status: Alert, Normal Affect, Normal Mood Sepsis Event Note - Evaluation Sepsis Screening Result: No Definite Risk - Focused Exam Vital Signs: Vital Signs Temp Pulse Pulse Resp BP BP Pulse Ox 01/15/20 08:00 97.6 F 78 20 113/65 90 L 01/15/20 06:43 01/15/20 04:00 98.2 F 86 18 122/62 90 L 01/15/20 00:00 98.2 F 98 20 124/65 92 L 01/14/20 23:49 93 134/78 Pulse Ox 01/15/20 08:00 01/15/20 06:43 93 L 01/15/20 04:00 01/15/20 00:00 01/14/20 23:49 - Problem List & Annotations (1) Hypoxia SNOMED Code(s): 678179407 Code(s): R09.02 - HYPOXEMIA Status: Acute Current Visit: No (2) UTI (urinary tract infection) SNOMED Code(s): 85308698 Code(s): N39.0 - URINARY TRACT INFECTION, SITE NOT SPECIFIED Status: Acute Current Visit: Yes Qualifiers: Urinary tract infection type: acute cystitis Hematuria presence: without hematuria Qualified Code(s): N30.00 - Acute cystitis without hematuria (3) Afib SNOMED Code(s): 42350598 Code(s): I48.91 - UNSPECIFIED ATRIAL FIBRILLATION Status: Chronic Current Visit: No Qualifiers: Atrial fibrillation type: paroxysmal Qualified Code(s): I48.0 - Paroxysmal atrial fibrillation (4) Anticoagulant long-term use SNOMED Code(s): 478142168 Code(s): Z79.01 - ORACLE ANALYST (CURRENT) USE OF ANTICOAGULANTS Status: Chronic Current Visit: No (5) BPH with urinary obstruction SNOMED Code(s): 590995965 Code(s): N40.1 - BENIGN PROSTATIC HYPERPLASIA WITH LOWER URINARY TRACT SYMP; N13.8 - OTHER OBSTRUCTIVE AND REFLUX UROPATHY Status: Chronic Current Visit: No (6) CAD (coronary artery disease) SNOMED Code(s): 87668176 Code(s): I25.10 - ATHSCL HEART DISEASE OF [place] CORONARY ARTERY W/O ANG PCTRS Status: Chronic Current Visit: No Qualifiers: Coronary Disease-Associated Artery/Lesion type: [place] artery [place] vs. transplanted heart: [place] heart Associated angina: without angina Qualified Code(s): I25.10 - Atherosclerotic heart disease of [place] coronary artery without angina pectoris (7) CHF (congestive heart failure) SNOMED Code(s): 37502509 Code(s): I50.9 - HEART FAILURE, UNSPECIFIED Status: Chronic Current Visit: No Qualifiers: Heart failure type: unspecified Heart failure chronicity: chronic Qualified Code(s): I50.9 - Heart failure, unspecified (8) Carotid stenosis Status: Chronic Current Visit: No Qualifiers: Laterality: right Qualified Code(s): I65.21 - Occlusion and stenosis of right carotid artery (9) HTN (hypertension) SNOMED Code(s): 05378041 Code(s): I10 - ESSENTIAL (PRIMARY) HYPERTENSION Status: Chronic Current Visit: No Qualifiers: Hypertension type: essential hypertension Qualified Code(s): I10 - Essential (primary) hypertension (10) History of CEA (carotid endarterectomy) SNOMED Code(s): 256850330, 059336838 Code(s): Z98.890 - OTHER SPECIFIED POSTPROCEDURAL STATES Status: Chronic Current Visit: No (11) Hx of CABG SNOMED Code(s): 185968592, 267504023 Code(s): Z95.1 - PRESENCE OF AORTOCORONARY BYPASS GRAFT Status: Chronic Current Visit: No (12) Hx of total knee arthroplasty SNOMED Code(s): 5337935781111, 1107545652701, 14707856108705 Code(s): Z96.659 - PRESENCE OF UNSPECIFIED ARTIFICIAL KNEE JOINT Status: Chronic Current Visit: No Qualifiers: Laterality: left Qualified Code(s): Z96.652 - Presence of left artificial knee joint (13) WAQAR on CPAP SNOMED Code(s): 56667871 Code(s): G47.33 - OBSTRUCTIVE SLEEP APNEA (ADULT) (PEDIATRIC); Z99.89 - DEPENDENCE ON OTHER ENABLING MACHINES AND DEVICES Status: Chronic Current Visit: No (14) Obesity SNOMED Code(s): 689592856, 785790335 Code(s): E66.9 - OBESITY, UNSPECIFIED Status: Chronic Current Visit: No (15) PVD (peripheral vascular disease) SNOMED Code(s): 350700540 Code(s): I73.9 - PERIPHERAL VASCULAR DISEASE, UNSPECIFIED Status: Chronic Current Visit: No (16) HCAP (healthcare-associated pneumonia) SNOMED Code(s): 454868602, 133840111 Code(s): J18.9 - PNEUMONIA, UNSPECIFIED ORGANISM Status: Acute Current Visit: Yes - Problem List Review Problem List Initiated/Reviewed/Updated: Yes - My Orders Last 24 Hours: My Active Orders 01/15/20 Breakfast Pureed Diet [DIET] 01/15/20 09:00 Potassium Chloride [Klor-Con M20] 40 meq PO BID@0900,1200 01/15/20 11:00 Ang Chest [CT] Urgent - Plan Plan:: This 84 year old male admitted with UTI and acute hypoxic respiratory failure and health care associated pneumonia. 1. acute hypoxic respiratory failure and health care associated pneumonia - Continue Vancomycin, Zosyn, and Azithromycin - Dun[place]bs - O2 support to maintain o2% sat above 90%, wean as possible - Encourge IS use - BC negative. - CT angio pending today - ST evaluated patient and noted possible aspiration, pureed diet and honey thickened liquids 2. UTI secondary to proteus Mirabilis - Continue Zosyn. - Will do continuous Ramirez irrigation - Foely draining well, no re-bleeding - Eliquis held due to bleeding 3. HTN, CHF, Afib - Continue Metoprolol 125 mg BID - Lasix BID PO - Eliquis on hold due to significant urethral bleeding - Daily weights, Strict I/O, Fluid restriction 4. Diabetes - Insulin SS, Diabetic Diet 5. WAQAR - BiPAP at night and during the day if needed - Refusing Bipap VTe prophylaxis: SCDs Code Status: DNR/DNI Spoke with Daughter Tali today who is very concerned her father is not improving. That he only improves slightly each time he gets sick and then gets admitted again. She fears are they just proloning the inevitable. We had a nice conversation regarding palliative care/Hospice. She was updated on management currently. She will await CT results and speak to her brother regarding goals of care going forward. As currently Luis Eduardo would be unable to make a decision. Tali wants her father to have a good quality of life in what he has left and feels this is not a goal currently and may be considering palliative measures. Dispo: 2-3 days pending improvement
[2020-01-15] MEDS: Metoprolol Tartrate 25 MG Tab PO SCH ×2 (11:30→23:52)
--- NOTE | 2020-01-15 15:41 | CT ---
CT chest Technique: Multiple axial sections through the chest were obtained. Study performed as a pulmonary angiogram protocol. Intravenous contrast was therefore utilized. Comparison: Prior chest CT study of 08/14/19. Findings: Small to moderate sized bilateral pleural effusions are noted. Heart is enlarged. Coronary artery calcification is seen. Ascites is partially seen. Pulmonary arteries show no filling defects to indicate pulmonary embolism. Aorta shows atherosclerotic change without aneurysm. Small mediastinal lymph nodes are seen believed to be within normal limits. No axillary adenopathy is appreciated. Increased density is seen adjacent to the pleural effusions within both lung bases most likely representing compressive atelectasis. Impression: 1. Small to moderate sized bilateral pleural effusions. 2. Heart is enlarged. Findings raise a possibility of CHF. 3. Areas of increased density next to the pleural effusions most likely due to compressive atelectasis. 4. Mild ascites is partially visualized. Diagnostic code #3 Study was dictated in MDT
[2020-01-15] MEDS ORDERED: Furosemide 40 MG/4 ML VIAL IVPUSH ONE (15:50)
[2020-01-15] MEDS: Azithromycin 500 MG in Sodium Chloride 0.9% 250 ML IV SCH (16:17)
[2020-01-15] MEDS ORDERED: Iopamidol 755 MG/ML 500 ML Multipack Bottle IVPUSH STA (18:17)
[2020-01-15] MEDS: Morphine 2 MG/ML SYRINGE IVPUSH PRN (21:15)
--- NOTE | 2020-01-15 21:51 | ECHO ---
EXAM DATE: 01/12/20 PATIENT'S AGE: 84 The ECHO report has been scanned into [facility] and can be seen in this patient's EMR (Electronic Medical Record) under the REPORTS section. The report has also been scanned into PACS. RENÉE
[2020-01-16] MEDS: Piperacillin/Tazobactam 3.375 GM in Sodium Chloride 0.9% 100 ML IV SCH (05:50)
[2020-01-16 06:15] LABS: CARBON DIOXIDE,CO2 35.6 mmol/L (21.0-32.0); POTASSIUM,K 3.2 mmol/L (3.5-5.1)
[2020-01-16] MEDS ORDERED: Furosemide 40 MG/4 ML VIAL IVPUSH ONE (08:16)
[2020-01-16] MEDS: Finasteride 5 MG Tab PO SCH (08:51)
[2020-01-16] MEDS: Tamsulosin 0.4 MG Cap.ER PO SCH (08:53)
[2020-01-16] MEDS: Potassium Chloride 20 MEQ Tab.ER PO SCH ×2 (08:55→11:46)
[2020-01-16] MEDS ORDERED: Phenazopyridine 200 MG Tab PO ONE (08:55)
[2020-01-16] MEDS: Insulin Aspart 100 Units/ML 3 ML Pen SUBCUT SCH ×2 (09:01→12:11)
[2020-01-16] MEDS: Morphine 2 MG/ML SYRINGE IVPUSH PRN (09:03)
--- NOTE | 2020-01-16 10:58 | PCM.DCSUM1 ---
Discharge Summary - Hospital Course Brief History: 84 year old male patient who resides at [facility], admitted for UTI, UA positive for Nitrite and Leukocyte esterase. Patient may also have pneumonia based on c-xray findings. Patient has a PMH of Diabetes, CHF, HTN, CAD, PVD, WAQAR on CPAP, A-fib, Stasis dermatitis chronic LE bilaterally. Patients caregiver states that the patient uses oxygen at [facility] as needed but did not require oxygen before residing there. Patient presented to the ED due to confusion, and weakness. On admission patient states that his urine was a darker color than usual. Patient denies SOB, chest pain, nausea or vomiting. He does state fatigue and general weakness. - Discharge Data Discharge Date: 01/16/20 Discharge Disposition: Home, Self-Care 01 Condition: Fair - Referral to Home Health Primary Care Physician: PCP None - Discharge Diagnosis/Problem(s) (1) Hypoxia SNOMED Code(s): 583871236 ICD Code: R09.02 - HYPOXEMIA Status: Acute (2) UTI (urinary tract infection) SNOMED Code(s): 04892673 ICD Code: N39.0 - URINARY TRACT INFECTION, SITE NOT SPECIFIED Status: Acute Qualifiers: Urinary tract infection type: acute cystitis Hematuria presence: without hematuria Qualified Code(s): N30.00 - Acute cystitis without hematuria (3) Afib SNOMED Code(s): 95397431 ICD Code: I48.91 - UNSPECIFIED ATRIAL FIBRILLATION Status: Chronic Qualifiers: Atrial fibrillation type: paroxysmal Qualified Code(s): I48.0 - Paroxysmal atrial fibrillation (4) Anticoagulant long-term use SNOMED Code(s): 373273664 ICD Code: Z79.01 - LONGTERM (CURRENT) USE OF ANTICOAGULANTS Status: Chronic (5) BPH with urinary obstruction SNOMED Code(s): 824272118 ICD Code: N40.1 - BENIGN PROSTATIC HYPERPLASIA WITH LOWER URINARY TRACT SYMP; N13.8 - OTHER OBSTRUCTIVE AND REFLUX UROPATHY Status: Chronic (6) CAD (coronary artery disease) SNOMED Code(s): 23188763 ICD Code: I25.10 - ATHSCL HEART DISEASE OF [place] CORONARY ARTERY W/O ANG PCTRS Status: Chronic Qualifiers: Coronary Disease-Associated Artery/Lesion type: [place] artery [place] vs. transplanted heart: [place] heart Associated angina: without angina Qualified Code(s): I25.10 - Atherosclerotic heart disease of [place] coronary artery without angina pectoris (7) CHF (congestive heart failure) SNOMED Code(s): 50548555 ICD Code: I50.9 - HEART FAILURE, UNSPECIFIED Status: Chronic Qualifiers: Heart failure type: unspecified Heart failure chronicity: chronic Qualified Code(s): I50.9 - Heart failure, unspecified (8) Carotid stenosis Status: Chronic Qualifiers: Laterality: right Qualified Code(s): I65.21 - Occlusion and stenosis of right carotid artery (9) HTN (hypertension) SNOMED Code(s): 54180859 ICD Code: I10 - ESSENTIAL (PRIMARY) HYPERTENSION Status: Chronic Qualifiers: Hypertension type: essential hypertension Qualified Code(s): I10 - Essential (primary) hypertension (10) History of CEA (carotid endarterectomy) SNOMED Code(s): 418855477, 739652405 ICD Code: Z98.890 - OTHER SPECIFIED POSTPROCEDURAL STATES Status: Chronic (11) Hx of CABG SNOMED Code(s): 163087919, 956554422 ICD Code: Z95.1 - PRESENCE OF AORTOCORONARY BYPASS GRAFT Status: Chronic (12) Hx of total knee arthroplasty SNOMED Code(s): 6216374091772, 2708737650554, 79453983341267 ICD Code: Z96.659 - PRESENCE OF UNSPECIFIED ARTIFICIAL KNEE JOINT Status: Chronic Qualifiers: Laterality: left Qualified Code(s): Z96.652 - Presence of left artificial knee joint (13) WAQAR on CPAP SNOMED Code(s): 15501773 ICD Code: G47.33 - OBSTRUCTIVE SLEEP APNEA (ADULT) (PEDIATRIC); Z99.89 - DEPENDENCE ON OTHER ENABLING MACHINES AND DEVICES Status: Chronic (14) Obesity SNOMED Code(s): 491714023, 594590237 ICD Code: E66.9 - OBESITY, UNSPECIFIED Status: Chronic (15) PVD (peripheral vascular disease) SNOMED Code(s): 206166552 ICD Code: I73.9 - PERIPHERAL VASCULAR DISEASE, UNSPECIFIED Status: Chronic (16) HCAP (healthcare-associated pneumonia) SNOMED Code(s): 017516713, 917026627 ICD Code: J18.9 - PNEUMONIA, UNSPECIFIED ORGANISM Status: Acute - Patient Summary/Data Consults: Consultations 01/11/20 15:39 Consult to Wound Care Services [CONS] Routine 01/12/20 08:56 Consult to Speech Language Pathology [BENEFITS REPRESENTATIVE Evaluation and Treatment] [CONS] Routine 01/13/20 09:20 Consult to Physical Therapy [PT Evaluation and Treatment] [CONS] Routine Hospital Course: admitting diagnosis UTI Acute hypoxic respiratory failure confusion Discharge diagnosis Palliative care UTI- fully treated CAP- treated Acute hypoxic respiratory failure Confusion Other PMH DM type 2 CHF Hypertension CAD PVD WAQAR on CPAP A-fib on chronic anticoagulation Chronic stasis dermatitis bilaterally Luis Eduardo was initially admitted for UTI treated with Rocephin and suspected community acquired pneumonia . He was treated with aids with Azithromycin in addition to the [place]. He continued to be hypoxic, Bipap was attempted though Feliz was not tolerating this well. Hypoxia continued though treatment for CAP was continued and expanded to include Vancomycin. BC remained negative. CT of his chest obtained 01/14, which revealed pleural effusions and compressive atelectasis. Lasix was increased to IV dosing and he continued to have good output. No significant improvement in hypoxia. There was suspicion of aspiration with thin liquids. ST consulted and recommended thickened liquids and pureed foods. Luis Eduardo was not happy with this and refused to follow diet. UC returned with Proteus, covered by Rocephin. During stay, liu was replaced due to UTI. Significant bleeding occurred from urethra and Eliquis was placed on hold. No further bleeding has been noted. Eliquis remains on hold at discharge. Tali, his daughter was kept updated during his stay. Luis Eduardo continued have confusion intermittently, but today was relatively alert and oriented. We discussed further management and goals of care. Currently he is not fond of being in the hospital. We discussed options of Hospice and Palliative care for his chronic comorbidities. He and his daughter Tali agree palliative care is the best option. We will continue all currently medications, except for Eliquis for now due to bleeding. I will also add Morphine to help with pain PRN. I spoke with Dr Sosa regarding treatment goals of care and the discussion with family and patient. He is in agreement with this. Luis Eduardo will be discharge home to [place] today on palliative measures. He is to contact Dr Sosa for any concerns. - Patient Instructions Diet: Regular Diet as Tolerated (no restrictions) Activity: As Tolerated Driving: Do Not Drive Showering/Bathing: May Shower Notify Provider of: Fever, Increased Pain, Swelling and Redness, Drainage, Nausea and/or Vomiting Other/Special Instructions: Palliative Care. Hospice consult when family requests. Comfort Measures Only. Liu cares per policy. Wound Care nurse consult for bilateral legs. PT/OT to evaluate and treat - Discharge Plan *PRESCRIPTION DRUG MONITORING PROGRAM REVIEWED*: Not Applicable *COPY OF PRESCRIPTION DRUG MONITORING REPORT IN PATIENT JONATHAN: Not Applicable Prescriptions/Med Rec: Morphine [Morphine 20 MG/ML Soln] 5 mg PO Q4H PRN #1 bottle PRN Reason: pain/dyspnea Home Medications: Home Meds Finasteride [Proscar] 5 mg PO DAILY 12/27/13 [History] Glucosam/Chond/Collagen/Hyalur [Glucosamine Chondroitin] 1 tab PO DAILY 12/27/13 [History] Lutein 10 mg PO DAILY 12/27/13 [History] Garlic 1 tab PO DAILY 08/07/19 [History] Loratadine 10 mg PO DAILY 08/07/19 [History] Potassium Chloride [Klor-Con 10] 10 meq PO TID 08/07/19 [History] Gabapentin [Neurontin] 300 mg PO TID 09/13/19 [History] Metoprolol Tartrate 125 mg PO BID 09/13/19 [History] Mineral Oil 30 ml PO DAILY PRN 09/13/19 [History] Acetaminophen [Tylenol] 650 mg PO Q4H PRN 09/14/19 [History] Allopurinol [Zyloprim] 300 mg PO DAILY 09/14/19 [History] Naproxen Sodium [Aleve] 220 mg PO Q12H PRN 09/14/19 [History] Ammonium Lactate [Lac-Hydrin 12% Crm] 1 applic TOP Q12H PRN MDD Dry Skin [History] Menthol [Biofreeze] 1 applic TP ASDIRECTED PRN 09/19/19 [History] Simvastatin 40 mg PO BEDTIME 09/19/19 [History] Tamsulosin HCl 0.8 mg PO DAILY 09/19/19 [History] metFORMIN [Glucophage] 500 mg PO BIDMEALS 7 Days #14 tab 09/21/19 [Rx] Ascorbic Acid [Vitamin C] 500 mg PO TID 01/10/20 [History] Carbamide Peroxide [Debrox] 15 ml OT Q12HR 01/10/20 [History] Finasteride 5 mg PO DAILY 01/10/20 [History] Furosemide 80 mg PO DAILY 01/10/20 [History] metOLazone [Metolazone] 2.5 mg PO MOWEFR 01/10/20 [History] Melatonin 5 mg PO BEDTIME 01/11/20 [History] Morphine [Morphine 20 MG/ML Soln] 5 mg PO Q4H PRN #1 bottle 01/16/20 [Rx] Oxygen Therapy Mode: Nasal Cannula Oxygen Flow Rate (L/min): 3 Maintain SPO2% less than: 90 Referrals: James Sosa MD [Ordering Only Provider] - 01/18/20 (next [place] rounds) - Discharge Summary/Plan Comment DC Time >30 min.: Yes (discussion with daughter and Dr Sosa to set up DC) - Patient Data Vitals - Most Recent: Last Vital Signs Temp 97.6 F 01/16/20 07:15 Pulse 86 01/16/20 07:15 Resp 18 01/16/20 07:15 BP 137/91 H 01/16/20 07:15 Pulse Ox 81 L 01/16/20 07:15 Weight - Most Recent: 139 kg I&O - Last 24 hours: Intake & Output 01/15/20 01/16/20 01/16/20 22:59 06:59 14:59 Intake Total 690 600 Output Total 2100 2050 Balance -1410 -1450 Lab Results - Last 24 hrs: Laboratory Results - last 24 hr 01/15/20 01/15/20 01/15/20 Range/Units 12:02 16:56 17:41 WBC (4.0-11.0) K/uL RBC (4.50-5.90) M/uL Hgb (13.0-17.0) g/dL Hct (38.0-50.0) % MCV (80.0-98.0) fL MCH (27.0-32.0) pg MCHC (31.0-37.0) g/dL RDW Std Deviation (28.0-62.0) fl RDW Coeff of [place] (11.0-15.0) % Plt Count (150-400) K/uL MPV (7.40-12.00) fL Neut % (Auto) (48.0-80.0) % Lymph % (Auto) (16.0-40.0) % [place] % (Auto) (0.0-15.0) % Eos % (Auto) (0.0-7.0) % Baso % (Auto) (0.0-1.5) % Neut # (Auto) (1.4-5.7) K/uL Lymph # (Auto) (0.6-2.4) K/uL [place] # (Auto) (0.0-0.8) K/uL Eos # (Auto) (0.0-0.7) K/uL Baso # (Auto) (0.0-0.1) K/uL Nucleated RBC % /100WBC Nucleated RBCs # K/uL Sodium (136-148) mmol/L Potassium (3.5-5.1) mmol/L Chloride (98-107) mmol/L Carbon Dioxide (21.0-32.0) mmol/L BUN (7.0-18.0) mg/dL Creatinine (0.8-1.3) mg/dL Est Cr Clr Drug Dosing mL/min Estimated GFR (MDRD) ml/min Glucose (74-106) mg/dL POC Glucose 167 H 129 H (60-110) mg/dL Calcium (8.5-10.1) mg/dL Vancomycin Trough 30.3 H (5.0-10.0) ug/mL 01/16/20 01/16/20 01/16/20 Range/Units 05:32 05:32 06:39 WBC 5.11 (4.0-11.0) K/uL RBC 3.77 L (4.50-5.90) M/uL Hgb 10.0 L (13.0-17.0) g/dL Hct 33.6 L (38.0-50.0) % MCV 89.1 (80.0-98.0) fL MCH 26.5 L (27.0-32.0) pg MCHC 29.8 L (31.0-37.0) g/dL RDW Std Deviation 55.8 (28.0-62.0) fl RDW Coeff of [place] 17 H (11.0-15.0) % Plt Count 145 L (150-400) K/uL MPV 9.30 (7.40-12.00) fL Neut % (Auto) 70.5 (48.0-80.0) % Lymph % (Auto) 17.6 (16.0-40.0) % [place] % (Auto) 8.6 (0.0-15.0) % Eos % (Auto) 3.1 (0.0-7.0) % Baso % (Auto) 0.2 (0.0-1.5) % Neut # (Auto) 3.6 (1.4-5.7) K/uL Lymph # (Auto) 0.9 (0.6-2.4) K/uL [place] # (Auto) 0.4 (0.0-0.8) K/uL Eos # (Auto) 0.2 (0.0-0.7) K/uL Baso # (Auto) 0.0 (0.0-0.1) K/uL Nucleated RBC % 0.0 /100WBC Nucleated RBCs # 0 K/uL Sodium 147 (136-148) mmol/L Potassium 3.2 L (3.5-5.1) mmol/L Chloride 105 (98-107) mmol/L Carbon Dioxide 35.6 H (21.0-32.0) mmol/L BUN 17 (7.0-18.0) mg/dL Creatinine 1.3 (0.8-1.3) mg/dL Est Cr Clr Drug Dosing 50.96 mL/min Estimated GFR (MDRD) 52.9 ml/min Glucose 120 H (74-106) mg/dL POC Glucose 156 H (60-110) mg/dL Calcium 8.9 (8.5-10.1) mg/dL Vancomycin Trough (5.0-10.0) ug/mL 01/16/20 Range/Units 08:11 WBC (4.0-11.0) K/uL RBC (4.50-5.90) M/uL Hgb (13.0-17.0) g/dL Hct (38.0-50.0) % MCV (80.0-98.0) fL MCH (27.0-32.0) pg MCHC (31.0-37.0) g/dL RDW Std Deviation (28.0-62.0) fl RDW Coeff of [place] (11.0-15.0) % Plt Count (150-400) K/uL MPV (7.40-12.00) fL Neut % (Auto) (48.0-80.0) % Lymph % (Auto) (16.0-40.0) % [place] % (Auto) (0.0-15.0) % Eos % (Auto) (0.0-7.0) % Baso % (Auto) (0.0-1.5) % Neut # (Auto) (1.4-5.7) K/uL Lymph # (Auto) (0.6-2.4) K/uL [place] # (Auto) (0.0-0.8) K/uL Eos # (Auto) (0.0-0.7) K/uL Baso # (Auto) (0.0-0.1) K/uL Nucleated RBC % /100WBC Nucleated RBCs # K/uL Sodium (136-148) mmol/L Potassium (3.5-5.1) mmol/L Chloride (98-107) mmol/L Carbon Dioxide (21.0-32.0) mmol/L BUN (7.0-18.0) mg/dL Creatinine (0.8-1.3) mg/dL Est Cr Clr Drug Dosing mL/min Estimated GFR (MDRD) ml/min Glucose (74-106) mg/dL POC Glucose (60-110) mg/dL Calcium (8.5-10.1) mg/dL Vancomycin Trough 22.8 H (5.0-10.0) ug/mL JOSE ARMANDO Results - Last 24 hrs: Microbiology 01/12/20 10:32 Aerobic Blood Culture - Preliminary Blood - Venous - Lab Draw NO GROWTH AFTER 4 DAYS Anaerobic Blood Culture - Preliminary NO GROWTH AFTER 4 DAYS 01/12/20 10:20 Aerobic Blood Culture - Preliminary Blood - Venous NO GROWTH AFTER 4 DAYS Anaerobic Blood Culture - Preliminary NO GROWTH AFTER 4 DAYS 01/10/20 22:24 Aerobic Blood Culture - Final Blood - Venous - Lab Draw Anaerobic Blood Culture - Final NO GROWTH AFTER 5 DAYS 01/10/20 22:15 Aerobic Blood Culture - Final Blood - Venous NO GROWTH AFTER 5 DAYS Anaerobic Blood Culture - Final NO GROWTH AFTER 5 DAYS Med Orders - Current: Current Medications Acetaminophen (Tylenol Extra Strength) 500 mg PO Q6H PRN PRN Reason: Pain Last Admin: 01/11/20 09:04 Dose: 500 mg Documented by: Albuterol/Ipratropium (Duoneb 3.0-0.5 Mg/3 Ml) 3 ml NEB Q4HRRT PRN PRN Reason: Shortness Of Breath/wheezing Last Admin: 01/15/20 06:35 Dose: 3 ml Documented by: Diltiazem HCl (Diltiazem) 20 mg IVPUSH Q2HR PRN PRN Reason: Tachycardia Last Admin: 01/11/20 23:14 Dose: 20 mg Documented by: Finasteride (Proscar) 5 mg PO DAILY [facility] Last Admin: 01/16/20 08:51 Dose: 5 mg Documented by: Piperacillin Sod/Tazobactam (Sod 3.375 gm/ Sodium Chloride) 100 mls @ 200 mls/hr IV Q6H [facility] Last Admin: 01/16/20 05:50 Dose: 200 mls/hr Documented by: Azithromycin 500 mg/ Sodium (Chloride) 250 mls @ 250 mls/hr IV Q24H [facility] Last Admin: 01/15/20 16:17 Dose: 250 mls/hr Documented by: Insulin Aspart (Novolog) 0 unit SUBCUT TIDAC [facility]; Protocol Last Admin: 01/16/20 09:01 Dose: 1 unit Documented by: Metoprolol Tartrate (Lopressor) 125 mg PO Q12H [facility] Last Admin: 01/15/20 23:52 Dose: 125 mg Documented by: Morphine Sulfate (Morphine) 1 mg IVPUSH Q6H PRN PRN Reason: Pain Last Admin: 01/16/20 09:03 Dose: 1 mg Documented by: Potassium Chloride (Klor-Con M20) 40 meq PO TIDMEALS [facility] Stop: 01/16/20 17:31 Last Admin: 01/16/20 08:55 Dose: 40 meq Documented by: Sodium Chloride (Saline Flush) 10 ml FLUSH ASDIRECTED PRN PRN Reason: Keep Vein Open Sodium Chloride (Saline Flush) 2.5 ml FLUSH ASDIRECTED PRN PRN Reason: Keep Vein Open Tamsulosin HCl (Flomax) 0.8 mg PO DAILY [facility] Last Admin: 01/16/20 08:53 Dose: 0.8 mg Documented by: Vancomycin HCl (Pharmacy To Dose - Vancomycin) 1 dose .XX ASDIRECTED [facility] Discontinued Medications Apixaban (Eliquis) 5 mg PO BID [facility] Last Admin: 01/12/20 09:57 Dose: Not Given Documented by: Finasteride (Proscar) 5 mg PO DAILY [facility] Last Admin: 01/12/20 09:57 Dose: Not Given Documented by: Furosemide (Lasix) 80 mg PO DAILY [facility] Last Admin: 01/12/20 09:56 Dose: Not Given Documented by: Furosemide (Lasix) 40 mg IVPUSH NOW ONE Stop: 01/12/20 09:49 Last Admin: 01/12/20 11:51 Dose: Not Given Documented by: Furosemide (Lasix) 40 mg IVPUSH BIDDIURETIC [facility] Last Admin: 01/13/20 08:57 Dose: 40 mg Documented by: Furosemide (Lasix) 40 mg PO BIDDIURETIC [facility] Last Admin: 01/15/20 14:22 Dose: 40 mg Documented by: Furosemide (Lasix) 20 mg IVPUSH NOW ONE Stop: 01/14/20 20:24 Last Admin: 01/14/20 22:06 Dose: 20 mg Documented by: Furosemide (Lasix) 40 mg IVPUSH NOW ONE Stop: 01/15/20 15:51 Last Admin: 01/15/20 16:13 Dose: 40 mg Documented by: Furosemide (Lasix) 40 mg IVPUSH NOW ONE Stop: 01/16/20 08:17 Last Admin: 01/16/20 08:50 Dose: 40 mg Documented by: Gabapentin (Neurontin) 300 mg PO TID [facility] Last Admin: 01/11/20 23:22 Dose: Not Given Documented by: Gabapentin (Neurontin) 300 mg PO TID [facility] Last Admin: 01/12/20 06:13 Dose: 300 mg Documented by: Sodium Chloride (Normal Saline) 1,000 mls @ 999 mls/hr IV .Bolus ONE Stop: 01/10/20 23:00 Last Admin: 01/10/20 22:18 Dose: 999 mls/hr Documented by: Sodium Chloride (Normal Saline) 1,000 mls @ 125 mls/hr IV ASDIRECTED [facility] Last Infusion: 01/11/20 01:52 Dose: 125 mls/hr Documented by: Sodium Chloride (Normal Saline) 500 mls @ 999 mls/hr IV .BOLUS ONE Stop: 01/11/20 01:47 Last Admin: 01/11/20 01:40 Dose: Not Given Documented by: Ceftriaxone Sodium/Dextrose 1 (gm/ Premix) 50 mls @ 100 mls/hr IV ONETIME ONE Stop: 01/11/20 02:09 Last Admin: 01/11/20 01:52 Dose: 100 mls/hr Documented by: Sodium Chloride (Normal Saline) 1,000 mls @ 100 mls/hr IV ASDIRECTED [facility] Last Admin: 01/11/20 13:17 Dose: 125 mls/hr Documented by: Ceftriaxone Sodium/Dextrose 1 (gm/ Premix) 50 mls @ 100 mls/hr IV Q24H [facility] Last Admin: 01/12/20 11:51 Dose: Not Given Documented by: Azithromycin 500 mg/ Sodium (Chloride) 250 mls @ 250 mls/hr IV ONETIME [facility] Last Admin: 01/11/20 03:24 Dose: 250 mls/hr Documented by: Piperacillin Sod/Tazobactam (Sod 3.375 gm/ Sodium Chloride) 100 mls @ 200 mls/hr IV Q6H [facility] Last Admin: 01/12/20 12:21 Dose: Not Given Documented by: Vancomycin HCl 1.5 gm/ Premix 300 mls @ 200 mls/hr IV Q12H [facility] Last Admin: 01/13/20 13:51 Dose: 200 mls/hr Documented by: Azithromycin 500 mg/ Sodium (Chloride) 250 mls @ 250 mls/hr IV Q24H [facility] Azithromycin 500 mg/ Sodium (Chloride) 250 mls @ 250 mls/hr IV Q24H [facility] Last Admin: 01/12/20 16:29 Dose: Not Given Documented by: Metoprolol Tartrate 50 mg/ (Sodium Chloride) 150 mls @ 150 mls/hr IV BID [facility] Last Admin: 01/13/20 11:00 Dose: Not Given Documented by: Vancomycin HCl 1.25 gm/ Sodium (Chloride) 250 mls @ 166.667 mls/hr IV Q12H [facility] Last Admin: 01/15/20 06:48 Dose: 166.667 mls/hr Documented by: Sodium Chloride (Normal Saline (Advbag)) Confirm Administered Dose 250 mls @ as directed .ROUTE .STK-MED ONE Stop: 01/15/20 06:38 Last Admin: 01/15/20 07:00 Dose: Not Given Documented by: Iopamidol (Isovue Multipack-370 (76%)) 100 ml IVPUSH ONETIME STA Stop: 01/15/20 18:18 Last Admin: 01/15/20 18:18 Dose: 100 ml Documented by: Melatonin (Melatonin) 6 mg PO BEDTIME [facility] Last Admin: 01/11/20 21:41 Dose: 6 mg Documented by: Metoprolol Tartrate (Lopressor) 125 mg PO BID [facility] Last Admin: 01/12/20 09:56 Dose: Not Given Documented by: Phenazopyridine HCl (Pyridium) 200 mg PO ONETIME ONE Stop: 01/16/20 08:56 Last Admin: 01/16/20 09:05 Dose: 200 mg Documented by: Potassium Chloride (Klor-Con M20) 40 meq PO ONETIME ONE Stop: 01/14/20 09:29 Last Admin: 01/14/20 10:19 Dose: 40 meq Documented by: Potassium Chloride (Klor-Con M20) 40 meq PO BID@0900,1200 [facility] Stop: 01/15/20 12:01 Last Admin: 01/15/20 12:39 Dose: 40 meq Documented by: Simvastatin (Zocor) 40 mg PO BEDTIME [facility] Last Admin: 01/11/20 21:41 Dose: 40 mg Documented by: Vancomycin HCl (Vancomycin) Confirm Administered Dose 1.25 gm .ROUTE .STK-MED ONE Stop: 01/15/20 06:31 Last Admin: 01/15/20 07:00 Dose: Not Given Documented by:
[2020-01-16 11:10] VITALS: BP 144/79
[2020-01-16] MEDS: Metoprolol Tartrate 25 MG Tab PO SCH (11:34)
[2020-01-16 11:47] VITALS: PULSE 93
== END 2020-01-16 13:30 | disposition home or self-care (01) | DRG 689 ==
LOC: MW.ED 21:41 → MW.MS 01-11 01:51 → OBSVTOIN 01-12 09:49 → MW.MS 01-12 12:20
PROVIDERS: ADMIT Student in an Organized Health Care Education/Training Program; ATTEND Student in an Organized Health Care Education/Training Program
DX: N30.00 Acute cystitis without hematuria (principal); J18.9 Pneumonia, unspecified organism; J96.01 Acute respiratory failure with hypoxia; H91.93 Unspecified hearing loss, bilateral; J30.9 Allergic rhinitis, unspecified; N17.9 Acute kidney failure, unspecified; I48.0 Paroxysmal atrial fibrillation; N13.8 Other obstructive and reflux uropathy; I48.91 Unspecified atrial fibrillation; N40.1 Benign prostatic hyperplasia with lower urinary tract symptoms; I73.9 Peripheral vascular disease, unspecified; I25.10 Atherosclerotic heart disease of native coronary artery without angina pectoris; Z66 Do not resuscitate; K57.90 Diverticulosis of intestine, part unspecified, without perforation or abscess without bleeding; J96.10 Chronic respiratory failure, unspecified whether with hypoxia or hypercapnia; Z20.828 Contact with and (suspected) exposure to other viral communicable diseases; R32 Unspecified urinary incontinence; I50.9 Heart failure, unspecified; Z86.010 Personal history of colon polyps; I65.21 Occlusion and stenosis of right carotid artery; Z98.62 Peripheral vascular angioplasty status; Z96.652 Presence of left artificial knee joint; G47.33 Obstructive sleep apnea (adult) (pediatric); E66.9 Obesity, unspecified; Z51.5 Encounter for palliative care; I11.0 Hypertensive heart disease with heart failure; E11.51 Type 2 diabetes mellitus with diabetic peripheral angiopathy without gangrene; G47.30 Sleep apnea, unspecified; E11.40 Type 2 diabetes mellitus with diabetic neuropathy, unspecified; E11.21 Type 2 diabetes mellitus with diabetic nephropathy; M54.9 Dorsalgia, unspecified; G89.29 Other chronic pain; M19.90 Unspecified osteoarthritis, unspecified site; E78.00 Pure hypercholesterolemia, unspecified; Z96.659 Presence of unspecified artificial knee joint; B96.4 Proteus (mirabilis) (morganii) as the cause of diseases classified elsewhere; Z79.01 Long term (current) use of anticoagulants; Z98.890 Other specified postprocedural states; Z95.1 Presence of aortocoronary bypass graft; Z99.89 Dependence on other enabling machines and devices; Z79.84 Long term (current) use of oral hypoglycemic drugs; Z79.899 Other long term (current) drug therapy; Z87.891 Personal history of nicotine dependence; Z68.39 Body mass index [BMI] 39.0-39.9, adult; Z99.81 Dependence on supplemental oxygen
CPT/HCPCS: 36415 ×3; 36600; 71045 ×2; 76705; 80048 ×2; 80053; 80061; 81001; 82803; 82962; 83605 ×2; 83690; 83735 ×2; 83880; 84100; 84484; 85025 ×3; 86140; 87040 ×2; 87086; 87088; 87186; 93005; 93306; 94660; 96361 ×2; 96365; 99285; A9270 ×10; J0456; J0696 ×2; J3490; J7030 ×4; J7050; U0002 ×2; 36430; 51702; 71275; 71275-26; 80202; 85018; 85610; 85730; 86850; 86900; 86901; 92610-GN; 94640; 96375; 96376; 97161-GP; 99219; 99232; 99239; G0378; J1815-GY; J1940; J2270; J2543; J3370; J7620-GY; P9017; Q9967